=== PATIENT | male | born 1955 | race Caucasian/White ===

== ENCOUNTER → 2016-12-16 | Outpatient (CLI) | payer BC ==
--- NOTE | 2016-12-16 09:38 | US ---
EXAMINATION TYPE: US kidneys/renal and bladder DATE OF EXAM: 12/16/2016 8:54 AM COMPARISON: in pacs renal ultrasound January 04, 2015. CLINICAL HISTORY: N19 Kidney Failure. EXAM MEASUREMENTS: Right Kidney: 11.7 x 7.3 x 6.4 cm Left Kidney: 12.5 x 6.6 x 6.4 cm Post Void Residual Volume: 883.6 mL TECHNOLOGIST IMPRESSION: Technically difficult and limited study due to patient's large body habitus Right Kidney: hydronephrosis Left Kidney: hydronephrosis Bladder: 6.6cm enlarged prostate appears to be indenting posterior wall Bilateral Jets seen: not seen Normal Post Void Residual: no There is moderate pelvic fullness without calyceal dilatation on the right and severe fullness with d ilatation on the left. No masses are identified. The urinary bladder is anechoic. Bilateral ureter al jets are not seen. After voiding significant amount of residual urine is present. Suspect enlarged prostate causing outlet obstruction as prostate is prominent along inferior margin of bladder. IMPRESSION: Suboptimal study with new moderate to severe left greater than right hydronephrosis. Urology follow-u p advised. Abnormal post void residual is noted presumed on basis of enlarged prostate gland. A [place] message has been communicated to Raimundo Smith MD via the [employer] Critical Result system on 12/16/2016 9:36 AM, Message ID [id number].
== END | disposition home or self-care (01) ==
LOC: RADUSWWP 07:22
PROVIDERS: ATTEND Family Medicine
DX: N13.30 Unspecified hydronephrosis (principal); N19 Unspecified kidney failure
CPT/HCPCS: 76770

== ENCOUNTER 2021-02-05 13:05 | Emergency (ER) | payer MEDICARE, OTHER ==
--- NOTE | 2021-02-05 14:06 | ED ---
General Adult HPI - General Stated complaint: BAM Time Seen by Provider: 02/05/21 14:00 Source: patient, RN notes reviewed Mode of arrival: ambulatory Limitations: no limitations - History of Present Illness Initial comments: 65-year-old male presents emergency Department with chief complaint of COVID. Patient states that he tested positive at [facility]. Patient states symptoms started 1 week ago. Patient states he's had no fever states that cough congestion shortness of breath, minimal GI symptoms. Patient was sent for monoclonal antibodies. - Related Data Allergies Allergy/AdvReac Type Severity Reaction Status Date / Time atorvastatin [From Lipitor] Allergy Rash/Hives Verified 02/05/21 14:14 Review of Systems ROS Statement: Those systems with pertinent positive or pertinent negative responses have been documented in the HPI. ROS Other: All systems not noted in ROS Statement are negative. General Exam General appearance: alert, in no apparent distress Head exam: Present: atraumatic, normocephalic, normal inspection Eye exam: Present: normal appearance, PERRL, EOMI. Absent: scleral icterus, conjunctival injection, periorbital swelling ENT exam: Present: normal exam, normal oropharynx, mucous membranes moist, TM's normal bilaterally Neck exam: Present: normal inspection. Absent: tenderness, meningismus, lymphadenopathy Respiratory exam: Present: normal lung sounds bilaterally. Absent: respiratory distress, wheezes, rales, rhonchi, stridor Course Vital Signs 02/05/21 14:10 Temperature 97.5 F L Pulse Rate 75 Respiratory 20 Rate Blood Pressure 164/90 O2 Sat by Pulse 96 Oximetry Medical Decision Making - Medical Decision Making Patient has positive for covid. Patient will receive monoclonal antibodies. - Lab Data Lab Results 02/05/21 Range/Units 14:10 Coronavirus (PCR) Detected A (Not Detectd) Disposition Clinical Impression: COVID-19 Disposition: HOME SELF-CARE Condition: Stable Instructions (If sedation given, give patient instructions): Coronavirus Disease 2019 (COVID-19) Additional Instructions: Please return to the Emergency Department if symptoms worsen or any other concerns. Is patient prescribed a controlled substance at d/c from ED?: No Referrals: Raimundo Smith MD [Primary Care Provider] - 1-2 days Time of Disposition: 15:16
[2021-02-05 14:14] VITALS: TEMP 97.5
[2021-02-05] MEDS ORDERED: SODIUM CHLORIDE 0.9% 50 ML IVPB ONE (15:45)
[2021-02-05] MEDS ORDERED: BAMLANIVIMAB (EUA) 700 MG, ETESEVIMAB (EUA) 1,400 MG in SODIUM CHLORIDE 0.9% 50 ML IVPB ONE (15:45)
[2021-02-05 15:50] VITALS: RESP 18
[2021-02-05 17:56] VITALS: BP 178/91; PULSE 85
== END 2021-02-05 17:40 | disposition home or self-care (01) ==
LOC: EC 13:05
DX: U07.1 COVID-19 (principal); Z88.8 Allergy status to other drugs, medicaments and biological substances
CPT/HCPCS: 87635; 99283; 96365; 96361; Q0245

== ENCOUNTER → 2021-12-22 | Outpatient (CLI) | payer MEDICARE ==
--- NOTE | 2021-12-22 17:28 | XR ---
EXAMINATION TYPE: XR chest 2V DATE OF EXAM: 12/22/2021 COMPARISON: Chest x-ray 01/10/2013 HISTORY: Chronic cough TECHNIQUE: Frontal and lateral views of the chest are obtained. FINDINGS: There is blunting the costophrenic angles. Cardiac mediastinal silhouette shows a similar appearance. No evident pneumothorax. Bones are unchanged. Prominent lung volumes with flattening the hemidiaphragms suggests underlying COPD. I question some perihilar vascular indistinctness. IMPRESSION: There is been interval development of pleural effusions, there may be associated atelect asis versus edema or pneumonia. Correlate to exclude interstitial edema, pulmonary venous hypertensio n in a patient with pre-existing COPD.
== END | disposition home or self-care (01) ==
LOC: RADXRMAIN 13:46
PROVIDERS: ATTEND Nurse Practitioner Family
DX: R05.3 Chronic cough (principal)
CPT/HCPCS: 71046

== ENCOUNTER → 2021-12-23 | Outpatient (CLI) | payer MEDICARE | END | disposition home or self-care (01) | LOC: LABWHC1 16:04 | PROVIDERS: ATTEND Nurse Practitioner Family | DX: R06.09 Other forms of dyspnea (principal) | CPT/HCPCS: 36415; 93005 ==

== ENCOUNTER → 2022-02-04 | Outpatient (CLI) | payer MEDICARE ==
--- NOTE | 2022-02-04 11:56 | ECHOF ---
Referral Reason:R06.09 MEASUREMENTS -------- HEIGHT: 167.6 cm WEIGHT: 122.5 kg BP: RVIDd: 4.2 cm (< 3.3) IVSd: 1.0 cm (0.6 - 1.1) LVIDd: 5.0 cm (3.9 - 5.3) LVPWd: 1.2 cm (0.6 - 1.1) IVSs: 1.2 cm LVIDs: 3.7 cm LVPWs: 1.7 cm LAESV Index (A-L): 25.34 ml/m Ao Diam: 3.1 cm (2.0 - 3.7) AV Cusp: 1.8 cm (1.5 - 2.6) LA Diam: 3.3 cm (2.7 - 3.8) MV EXCURSION: 5.477 mm (> 18.000) MV EF SLOPE: 48 mm/s (70 - 150) EPSS: 1.0 cm MV E Kodi: 0.76 m/s MV DecT: 180 ms MV A [place]: 0.71 m/s MV E/A Ratio: 1.08 RAP: 5.00 mmHg RVSP: 15.46 mmHg FINDINGS -------- This was a technically difficult study with suboptimal views. The left ventricular size is normal. Left ventricular wall thickness is normal. There is severe g lobal hypokinesis of LV . Overall left ventricular systolic function is severely impaired with, an EF between 20 - 25 %. The right ventricle is moderate to severely enlarged. , and the LA measures 3.3cm. Normal LA size by volume 22+/-6 ml/m2. The right atrial size is normal. 5.0mg of Lumason was utilized for enhancement of images The aortic valve was not well visualized. The mitral valve is normal. Mild mitral regurgitation is present. The tricuspid valve appears structurally normal. Trace tricuspid regurgitation present. Right yomaira tricular systolic pressure is normal at < 35 mmHg. There is no pulmonic regurgitation present. The aortic root size is normal. IVC Not well visulized. There is no pericardial effusion. CONCLUSIONS -------- 1. The left ventricular size is normal. 2. Left ventricular wall thickness is normal. 3. There is severe global hypokinesis of LV . 4. Overall left ventricular systolic function is severely impaired with, an EF between 20 - 25 %. 5. The right ventricle is moderate to severely enlarged. 6. Mild mitral regurgitation is present. 7. Trace tricuspid regurgitation present. 8. There is no pericardial effusion. APPRENTICE PHOTOGRAPHER: Dorina Velásquez RDCS
--- NOTE | 2022-02-04 12:02 | P.STRESS ---
- Stress Test Note Stress Test Results/Findings: Exam Performed: stress test Exam Date: 02/04/22 Reason for Exam: THOM Height: 5 ft 6 in Weight: 122.47 kg Protocol: MELVIN Stage: 1 Duration of Exercise: 2:40 Resting Heart Rate: 94 Resting Blood Pressure: 144/78 Maximum Achieved Heart Rate: 106 Maximum Achieved Blood Pressure: 177/94 85% PMHR: 130 100% PMHR: 153 METS: 4.7 Technologist Comment: Stress Test Results/Findings: Patient underwent exercise stress EKG with a Melvin protocol treadmill stress test. Patient exercised into Stage 1 for a total of 2 minutes and 40 seconds reaching a total of 4.7 METS. Patient's maximum heart rate was 106 which represented 69% age-predicted maximum heart rate. Patient terminated test secondary to difficulty in breathing and unable to reach target heart rate. Stress EKG findings: At baseline patient's EKG showed normal sinus rhythm, normal axis, Q waves in the anterior septal leads, no significant ST or T wave abnormalities. At peak exercise, EKG showed no significant change from baseline. Conclusions: 1. Nondiagnostic stress EKG secondary to inability to reach target heart rate. Consider other stress modality if clinically indicated. 2. Abnormal EKG with Q waves in the anterior lateral leads. 3. Poor exercise capacity.
== END | disposition home or self-care (01) ==
LOC: RADNMMAIN 08:33
PROVIDERS: ATTEND Family Medicine
DX: R94.31 Abnormal electrocardiogram [ECG] [EKG] (principal); R06.09 Other forms of dyspnea
CPT/HCPCS: 93017; C8929; Q9950; 93306

== ENCOUNTER 2022-05-20 17:32 | Emergency (ER) | payer MEDICARE ==
[2022-05-20 17:46] VITALS: TEMP 98
[2022-05-20 18:52] LABS: Glucose,Whole Blood 178 mg/dL (70-110)
[2022-05-20 19:29] LABS: Albumin 3.8 g/dL (3.5-5.0); Calcium 9.4 mg/dL (8.4-10.2); Potassium 4.5 mmol/L (3.5-5.1); Total Bilirubin 1.4 mg/dL (0.2-1.3); Total Protein 6.7 g/dL (6.3-8.2)
--- NOTE | 2022-05-20 19:32 | XR ---
EXAMINATION TYPE: XR chest 2V DATE OF EXAM: 05/20/2022 7:28 PM COMPARISON: Chest radiographs from 01/29/2022 TECHNIQUE: XR chest 2V Frontal and lateral views of the chest. CLINICAL INDICATION:Male, 67 years old with history of altered mental status; FINDINGS: Lungs/Pleura: There is no evidence of pleural effusion, focal consolidation, or pneumothorax. Pulmonary vascularity: Unremarkable. Heart/mediastinum: Cardiomediastinal silhouette is unremarkable. Musculoskeletal: No acute osseous pathology. IMPRESSION: No acute cardiopulmonary disease/process.
[2022-05-20 19:33] LABS: Basophils # (A) 0.1 k/uL (0-0.2); Basophils % (A) 1 %; Eosinophils # (A) 0.5 k/uL (0-0.7); Eosinophils % (A) 4 %; HCT 46.4 % (39.0-53.0); HGB 15.8 gm/dL (13.0-17.5); Lymphocytes % (A) 18 %; MCH 31.7 pg (25.0-35.0); MCV 93.3 fL (80.0-100.0); Mean Platelet Volume 7.9; Monocytes # (A) 0.8 k/uL (0-1.0); Monocytes % (A) 7 %; Neutrophils # (A) 7.7 k/uL (1.3-7.7); Neutrophils % (A) 69 %; Platelet Count 220 k/uL (150-450); RBC 4.98 m/uL (4.30-5.90); RDW 13.3 % (11.5-15.5); WBC 11.1 k/uL (3.8-10.6)
--- NOTE | 2022-05-20 19:34 | CT ---
EXAMINATION TYPE: CT brain wo con for TPA CT DLP: 1192.6 mGycm, Automated exposure control for dose reduction was used. DATE OF EXAM: 05/20/2022 7:27 PM COMPARISON: None. CLINICAL INDICATION:Male, 67 years old with history of Neuro deficit, acute, stroke suspected, Neuro deficits, weakness TECHNIQUE: Brain: Axial CT images of the brain were obtained with coronal and sagittal reformats created and rev iewed. Contrast used: None. Oral contrast used: None. FINDINGS: Brain: Extra-axial spaces: No abnormal extra-axial fluid collections. Ventricular system: Within normal limits Cerebral parenchyma: No acute intraparenchymal hemorrhage or mass effect. The ramirez-white junction is well differentiated. Cerebellum: Unremarkable. Mass effect: No evidence of midline shift. Intracranial vasculature: Atherosclerotic calcifications of the intracranial vessels. Soft tissues: Normal. Calvarium/osseous structures: No depressed skull fracture. Paranasal sinuses and mastoid air cells: Mild scattered paranasal sinus disease. Visualized orbits: Bilateral aphakia IMPRESSION: No acute intracranial process.
--- NOTE | 2022-05-20 19:57 | CT ---
EXAMINATION TYPE: CT angio head neck CT DLP: 834.1 mGycm, Automated exposure control for dose reduction was used. DATE OF EXAM: 05/20/2022 7:39 PM COMPARISON: CT brain same day. CLINICAL INDICATION:Male, 67 years old with history of Neuro deficit, acute, stroke suspected;, Neuro deficits, weakness TECHNIQUE: Axially acquired helical CT angiogram of the head and neck was obtained with contrast. Axi al images are supplemented with 3D reconstructions [facility] NASCET criteria used. Contrast used:65 mL of Isovue 370 with IV Contrast, Oral contrast used: None. FINDINGS: CTA HEAD: No evidence of acute intracranial hemorrhage, mass effect, or midline shift. The ventricles, sulci, a nd cisterns are unremarkable. The visualized portions of the internal carotid arteries, middle cerebral arteries, anterior cerebral arteries, and posterior cerebral arteries are patent. The basilar and vertebral arteries are patent. CTA NECK: Right Carotid System: The common carotid artery and external carotid artery are patent. The carotid bifurcation demonstrate s no evidence of hemodynamically significant stenosis. The remaining portions of the internal carotid artery demonstrate normal size without significant narrowing. Left Carotid System: The common carotid artery and external carotid artery are patent. The carotid bifurcation demonstrate s no evidence of hemodynamically significant stenosis. The remaining portions of the internal carotid artery demonstrate normal size without significant narrowing. Vertebral arteries are patent without evidence hemodynamically significant stenosis. There is a three-vessel aortic arch. The origins of the great vessels are patent. No evidence of hemo dynamically significant stenosis. Left thyroid peripherally calcified nodule. Scattered soft tissue densities seen within the mediastin um measuring less than a centimeter. IMPRESSION: 1. No finding to correlate with patient's abnormal right ocular exam. 2. No evidence of dissection of the cervical internal carotid arteries or vertebral arteries or any e vidence of significant stenosis at the carotid bifurcations. 3. No evidence of high-grade stenosis or intracranial aneurysm. 4. Scattered less than 1 cm soft tissue densities seen within the upper mediastinum. These are nonspe cific attention on short-term follow-up imaging. Comparisons with priors at outside institution would be of benefit for stability.
[2022-05-20] MEDS ORDERED: SODIUM CHLORIDE 0.9% 1,000 ML IV STA (20:00)
[2022-05-20] MEDS ORDERED: PHENYLEPHRINE 2.5% OPHTH DRP 2ML RIGHT EYE STA (20:12)
[2022-05-20] MEDS ORDERED: TROPICAMIDE 1% OPHTH DROPS 2 ML BTL RIGHT EYE STA (20:12)
--- NOTE | 2022-05-20 21:27 | ED ---
General Adult HPI - General Chief complaint: Weakness Stated complaint: R53.1 Weakness Time Seen by Provider: 05/20/22 17:57 Source: patient, RN notes reviewed, old records reviewed Mode of arrival: EMS Limitations: no limitations - History of Present Illness Initial comments: Patient is a 67-year-old male with past medical history remarkable for prior right eye cataract surgery, diabetes, hypertension who presents emergency Department complaining of sudden onset generalized weakness with associated right eye visual changes. States he was working outside today. He was lying down for a nap when he suddenly experienced weakness, as well as sweats. States he felt nauseous but expressed no episodes of emesis. Nose there is having increased difficulty with vision in his right lateral eye lan from his right eye alone. Presents emergency department for further evaluation of this time. Denies any sensory deficits. Denies any history of strokes or TIAs. Had his surgery 2 or 3 years ago on a cataract and hasn't followed up with his ophtha lmologist in multiple years. There are no changes to his eyes for as he can tell. Denies fevers, chills, sick contacts. No other acute complaints at this time. Presents for further evaluation. - Related Data Home Medications Medication Instructions Recorded Confirmed Albuterol Inhaler [Ventolin Hfa 2 puff INHALATION RT-Q6H PRN 05/20/22 05/20/22 Inhaler] Dulaglutide [Trulicity] 1.5 mg SQ TU 05/20/22 05/20/22 Furosemide [Lasix] 40 mg PO DAILY 05/20/22 05/20/22 Rosuvastatin [Crestor] 10 mg PO DAILY 05/20/22 05/20/22 Sacubitril/Valsartan [Entresto 24 1 tab PO BID 05/20/22 05/20/22 mg-26 mg Tablet] Spironolactone [Aldactone] 25 mg PO DAILY 05/20/22 05/20/22 Tiotropium Reeds [Spiriva] 18 mcg INHALATION RT-DAILY 05/20/22 05/20/22 allopurinoL [Zyloprim] 100 mg PO DAILY 05/20/22 05/20/22 carvediloL [Coreg] 3.125 mg PO BID 05/20/22 05/20/22 metFORMIN HCL 1,000 mg PO BID 05/20/22 05/20/22 Allergies Allergy/AdvReac Type Severity Reaction Status Date / Time atorvastatin [From Lipitor] Allergy Rash/Hives Verified 05/20/22 20:50 Review of Systems ROS Statement: Those systems with pertinent positive or pertinent negative responses have been documented in the HPI. Review of Systems: CONST: Denies fever EYES: Endorses worsening vision of right eye ENT: Denies nasal congestion C/V: Denies Chest pain RESP: Denies shortness of breath GI: Denies abdominal pain : Denies dysuria SKIN: Denies rash. MSK: Denies joint pain. NEURO: Endorses generalized weakness ROS Other: All systems not noted in ROS Statement are negative. Past Medical History Past Medical History: Diabetes Mellitus, Hypertension, Prostate Disorder History of Any Multi-Drug Resistant Organisms: None Reported Past Surgical History: Heart Catheterization, Prostate Surgery Past Psychological History: No Psychological Hx Reported Smoking Status: Never smoker Past Alcohol Use History: None Reported Past Drug Use History: None Reported General Exam - General Exam Comments Initial Comments: General: Appears in no acute distress. HEAD: Normal with no signs of head trauma. EYES: Left pupil is 3 mm. Equal round and reactive to light. EOMI bilaterally. Right pupil appears abnormal, as it appears forced to the 10 o'clock position of the right iris with an atypical shape. Slitlike. Lens is visualized by the naked eye. No conjunctival injection. No discharge. Decreased peripheral vision in the right eye in the right upper and right lower quadrants. Right eye pressures are 15, left eye pressures are 18. No discharge. Left eye is otherwise within normal limits. Visual acuity is decreased in the right eye, normal in the left eye. ENT: Hearing grossly intact, normal oropharynx. RESPIRATORY: Clear breath sounds bilaterally. No wheezes, rales, or rhonchi. C/V: Regular rate and rhythm. S1 and S2 auscultated, no edema, peripheral pulses 2+ and intact throughout ABD: Abd is soft, nontender, nondistended EXT: Normal range of motion, no obvious deformity SKIN: No rashes or lesions observed on exposed skin. NEURO: Alert and oriented 4. GCS is 15. Stroke scale is isolated to right eye complaints, as there is some difficulty with finger to nose testing but it is extinguished when he removed right eye visual lan. No other local neurologic al deficits. Limitations: no limitations Course Vital Signs 05/20/22 05/20/22 17:41 20:31 Temperature 98 F Pulse Rate 67 68 Respiratory 17 16 Rate Blood Pressure 193/88 159/93 O2 Sat by Pulse 96 99 Oximetry Medical Decision Making - Medical Decision Making Based on the patient's presentation and physical exam, I'm concerned for acute right eye process causing his current visual loss but cannot rule out the possibility of a stroke. I have low suspicion at this time his NIH is basically 0. I have stronger suspicion for acute intraocular process. We will obtain a stroke work up, however stroke pager will not be activated. Blood glucose is within normal limits. Vital signs are within normal limits. I discussed at length with the patient and his whether or not his pupil findings are new or not. They're uncertain. As far as the patient knows, his pupil is normally the same as the left pupil. He thinks this may be new but is uncertain.Bedside ultrasound was completed by myself to evaluate for retinal detachment. No obv ious signs of retinal detachment were seen by myself. I did speak with ophthalmology, Dr. Baez who was in agreement with the above plan. He will come evaluate the patient had CT imaging is negative. Concern for possible intra-ocular issue as well, particularly with the patient's history of eye surgery. EKG shows no signs of acute ischemia. Laboratory studies are relatively unremarkable except for slight AK I with an elevated BUN of 37 and creatinine of 1.54. Patient was administered IV fluids. Troponin is indeterminate. Chest x- ray shows no acute cardiopulmonary process. CT brain shows no acute intracranial process. CT angiogram shows no acute intracranial process to extend the patient's right eye issues. I did speak with radiology directly regarding CT imaging and CT results from nonverbally. I discussed the findings with the patient. We will have ophthalmology come evaluate him. I did dilate the patient's right eye prior to ophthalmology arrival. On reevaluation at this time, patient's exam is unchanged. He is overall feeling better. Weakness is resolved. Dr. Baez presented bedside and completely deny exam. He believes that the patient has a macular hole, likely related to prior surgery. Please see his consult note. He states that this is likely what is causing the patient's acute symptoms. The abnormal pupil may or may not be old. Either way, patient is stable for discharge home with close follow-up with the patient's revit drafter, Dr. Herrmann. Patient was in agreement with this plan. I instructed the patient to follow up with their PCP in the next 1-3 days. I explained that the patient should return to the emergency department if they experience any worsening symptoms. Strict return precautions were discussed with the patient. The patient expressed understanding of these instructions. I answered all questions that the patient had. The patient was discharged home in fair condition with their prescriptions and follow up information. - Lab Data Result diagrams: 05/20/22 19:13 05/20/22 19:13 Lab Results 05/20/22 05/20/22 05/20/22 Range/Units 18:48 19:13 19:13 WBC 11.1 H (3.8-10.6) k/uL RBC 4.98 (4.30-5.90) m/uL Hgb 15.8 (13.0-17.5) gm/dL Hct 46.4 (39.0-53.0) % MCV 93.3 (80.0-100.0) fL MCH 31.7 (25.0-35.0) pg MCHC 34.0 (31.0-37.0) g/dL RDW 13.3 (11.5-15.5) % Plt Count 220 (150-450) k/uL MPV 7.9 Neutrophils % 69 % Lymphocytes % 18 % Monocytes % 7 % Eosinophils % 4 % Basophils % 1 % Neutrophils # 7.7 (1.3-7.7) k/uL Lymphocytes # 2.0 (1.0-4.8) k/uL Monocytes # 0.8 (0-1.0) k/uL Eosinophils # 0.5 (0-0.7) k/uL Basophils # 0.1 (0-0.2) k/uL Sodium 136 L (137-145) mmol/L Potassium 4.5 (3.5-5.1) mmol/L Chloride 103 (98-107) mmol/L Carbon Dioxide 23 (22-30) mmol/L Anion Gap 10 mmol/L BUN 37 H (9-20) mg/dL Creatinine 1.54 H (0.66-1.25) mg/dL Est GFR (CKD-EPI)AfAm 53 (>60 ml/min/1.73 sqM) Est GFR (CKD-EPI)NonAf 46 (>60 ml/min/1.73 sqM) Glucose 171 H (74-99) mg/dL POC Glucose (mg/dL) 178 H (70-110) mg/dL POC Glu Postal Transportation Clerk ID Camille Hutson Calcium 9.4 (8.4-10.2) mg/dL Total Bilirubin 1.4 H (0.2-1.3) mg/dL AST 22 (17-59) U/L ALT 15 (4-49) U/L Alkaline Phosphatase 86 (38-126) U/L Troponin I (0.000-0.034) ng/mL Total Protein 6.7 (6.3-8.2) g/dL Albumin 3.8 (3.5-5.0) g/dL 05/20/22 Range/Units 19:13 WBC (3.8-10.6) k/uL RBC (4.30-5.90) m/uL Hgb (13.0-17.5) gm/dL Hct (39.0-53.0) % MCV (80.0-100.0) fL MCH (25.0-35.0) pg MCHC (31.0-37.0) g/dL RDW (11.5-15.5) % Plt Count (150-450) k/uL MPV Neutrophils % % Lymphocytes % % Monocytes % % Eosinophils % % Basophils % % Neutrophils # (1.3-7.7) k/uL Lymphocytes # (1.0-4.8) k/uL Monocytes # (0-1.0) k/uL Eosinophils # (0-0.7) k/uL Basophils # (0-0.2) k/uL Sodium (137-145) mmol/L Potassium (3.5-5.1) mmol/L Chloride (98-107) mmol/L Carbon Dioxide (22-30) mmol/L Anion Gap mmol/L BUN (9-20) mg/dL Creatinine (0.66-1.25) mg/dL Est GFR (CKD-EPI)AfAm (>60 ml/min/1.73 sqM) Est GFR (CKD-EPI)NonAf (>60 ml/min/1.73 sqM) Glucose (74-99) mg/dL POC Glucose (mg/dL) (70-110) mg/dL POC Glu Postal Transportation Clerk ID Calcium (8.4-10.2) mg/dL Total Bilirubin (0.2-1.3) mg/dL AST (17-59) U/L ALT (4-49) U/L Alkaline Phosphatase (38-126) U/L Troponin I 0.028 (0.000-0.034) ng/mL Total Protein (6.3-8.2) g/dL Albumin (3.5-5.0) g/dL - EKG Data -: EKG Interpreted by Me EKG Comments: 12-lead Electrocardiogram Interpretation Note EKG was reviewed and interpreted by myself. 12-lead ECG performed at 1750 is interpreted by me as revealing normal sinus rhythm at a rate of 65 beats per minute. [place] is normal. VA interval is 181 ms, QRS duration is 92 ms, QTc is 433 ms. There were no ST or T wave abnormalities to suggest myocardial ischemia or injury. R wave progression across the precordium was satisfactory. By my interpretation this EKG is non-diagnostic for acute ischemia. Critical Care Time Critical Care Time: Yes Total Critical Care Time: 35 Critical Care Time: Upon my evaluation, this patient had a high probability of imminent or life- threatening deterioration due to monocular vision loss, macular hole, which required my direct attention, intervention, and personal management. I have personally provided 35 minutes of critical care time exclusive of time spent on separately billable procedures. Time includes review of laboratory data, radiology results, discussion with consultants, and monitoring for potential decompensation. Interventions were performed as documented in my note. Disposition Clinical Impression: Macular hole, right eye Disposition: HOME SELF-CARE Condition: Good Additional Instructions: Follow up with Dr. Herrmann within the next 7 days for further right eye evaluation. Diagnosed with a macular hole. Is patient prescribed a controlled substance at d/c from ED?: No Referrals: Raimundo Smith MD [Primary Care Provider] - 1-2 days Zaid Herrmann MD [STAFF PHYSICIAN] - 1-2 days Time of Disposition: 21:15
[2022-05-20 21:37] VITALS: BP 159/93; PULSE 68; RESP 16
--- NOTE | 2022-05-20 23:32 | P.CON ---
Consult Note - . Consult date: 05/20/22 Assessment/Plan:: This is a 67 y/o male who underwent cataract surgery for each eye a few years ago. Today he presetns to the ER with new vision symptoms associated with general malaise after working today in the heat and humidity. He stated that he had laid down for a nap and experienced sweats and weakness along with a change in vision in the right eye. He states he has a long standing history of amblyopia of the right eye, and is not as aware of the field of view with the eye with the reduced vision. Previous cataract surgery of each eye was performed several years ago, and the left was unremarkable, however there was difficulty on the right. His last examination was apparently for the postoperative course. He denies any annnual examinations for the last 3 years. PE: Slit lamp exam, (OD dilated with tropicamide & neosynephrine) Ext: unremarkable OU Conj: white/quiet Cornea: Clear OU AC: D&Q OU; AC IOL in good position OD Iris: unremarkable OS, OD moderate postoperative correctopia and lateral pupillary opening Lens: OD AC IOL, OS PC IOL Vitreous: clear OU Optic nerve s/f/p C:D 0.10 OU Macula: OD with irregular foveola with small central intraretinal heme, possible ERM; OS normal FLR and quiet Vascular: normal 0.67 Peripheral: unremarkable OD, with detachment or defect A: 1) Correctopia OD, related to previous intraocular lens implant surgery, not likely new 2) AC IOL OD consistent with history of previous difficulty with cataract surgery 3) Epiretinal membrane OD with macular hole indeterminate age 4) amblyopia OD limited ability to necessarily determine when there may have been a vision change P: Recommend complete eye examination with Dr. Zaid Herrmann to determine course of action to correct vision deficit.
== END 2022-05-20 21:48 | disposition home or self-care (01) ==
LOC: EC 17:32
DX: H35.341 Macular cyst, hole, or pseudohole, right eye (principal); E11.9 Type 2 diabetes mellitus without complications; I10 Essential (primary) hypertension; Z88.8 Allergy status to other drugs, medicaments and biological substances
CPT/HCPCS: 36415; 93005; 80053; 84484; 85025; 71046; 70496; 70450; 70498; 99285; 96360; 96361; Q9967

== ENCOUNTER 2022-05-22 18:51 | Inpatient (IN) | payer MEDICARE ==
[2022-05-22] MEDS ORDERED: ASPIRIN 325 MG TAB PO STA (19:09)
--- NOTE | 2022-05-22 19:11 | ED ---
Neuro HPI - General Chief Complaint: Neuro Symptoms/Deficit Stated Complaint: neuro issue Time Seen by Provider: 05/22/22 19:08 Source: patient Mode of arrival: wheelchair Limitations: no limitations - History of Present Illness Is the patient presenting with stroke symptoms?: No Initial Comments: This is a pleasant 67-year-old male who presents to the emergency department complaining of visual disturbance involving both eyes, inability to use correctly, and inability to recognize common objects. Patient states that the symptom seemed to start on Wednesday after having a diaphoretic episode at about 3 PM, this was May 20. Patient was subsequently seen here and had a neurological workup. Patient was also seen by ophthalmology. Patient's computed tomography scan showed no acute findings. Patient subsequently followed up with his regular physician and was sent here today for an echocardiogram and MRI. This shows acute ischemic changes involving left temporal area and thalamus. Patient was started on Eliquis due to hypokinesia on echocardiogram with probable thrombus formation. Patient took a baby aspirin prior to arrival. Patient current complaints are right visual field loss, plus the above co mplaints which continue. He has no chest pain or shortness of breath. No focal weakness. No headache, no fever or chills, no changes hearing, no sore throat or difficulty with speech, no neck pain, no chest pain or shortness of breath, no abdominal pain, no nausea or vomiting, no changes in urination or bowel movements, no numbness or tingling, no extremity pain, no skin rashes or lesions. Past medical, surgical, social, and family history reviewed. Last Observed Normal: 15:00 (05/20/2022) - Related Data Home Medications: Home Medications Medication Instructions Recorded Confirmed Albuterol Inhaler [Ventolin Hfa 2 puff INHALATION RT-Q6H PRN 05/20/22 05/20/22 Inhaler] Dulaglutide [Trulicity] 1.5 mg SQ TU 05/20/22 05/20/22 Furosemide [Lasix] 40 mg PO DAILY 05/20/22 05/20/22 Rosuvastatin [Crestor] 10 mg PO DAILY 05/20/22 05/20/22 Sacubitril/Valsartan [Entresto 24 1 tab PO BID 05/20/22 05/20/22 mg-26 mg Tablet] Spironolactone [Aldactone] 25 mg PO DAILY 05/20/22 05/20/22 Tiotropium Hyrum [Spiriva] 18 mcg INHALATION RT-DAILY 05/20/22 05/20/22 allopurinoL [Zyloprim] 100 mg PO DAILY 05/20/22 05/20/22 carvediloL [Coreg] 3.125 mg PO BID 05/20/22 05/20/22 metFORMIN HCL 1,000 mg PO BID 05/20/22 05/20/22 Allergies/Adverse Reactions: Allergies Allergy/AdvReac Type Severity Reaction Status Date / Time atorvastatin [From Lipitor] Allergy Rash/Hives Verified 05/22/22 19:03 Review of Systems ROS Statement: Those systems with pertinent positive or pertinent negative responses have been documented in the HPI. ROS Other: All systems not noted in ROS Statement are negative. General Exam - General Exam Comments Initial Comments: Vital signs reviewed, blood pressure 151/101. Patient in no significant distress otherwise. Limitations: no limitations General appearance: alert, in no apparent distress Head exam: Present: atraumatic, normocephalic, normal inspection Eye exam: Present: normal appearance, PERRL, EOMI. Absent: scleral icterus, conjunctival injection, periorbital swelling ENT exam: Present: normal exam, normal oropharynx, mucous membranes dry, mucous membranes moist, normal external ear exam Neck exam: Present: normal inspection, full ROM. Absent: tenderness, meningismus, lymphadenopathy Respiratory exam: Present: normal lung sounds bilaterally. Absent: respiratory distress, wheezes, rales, rhonchi, stridor Cardiovascular Exam: Present: regular rate, normal rhythm, normal heart sounds. Absent: systolic murmur, diastolic murmur, rubs, gallop, clicks GI/Abdominal exam: Present: soft, normal bowel sounds. Absent: distended, tenderness, guarding, rebound, rigid Extremities exam: Present: normal inspection, full ROM, normal capillary refill. Absent: tenderness, pedal edema, joint swelling, calf tenderness Back exam: Present: normal inspection Neurological exam: Present: alert, oriented X3. Absent: motor sensory deficit Expanded Neurological exam: Present: other (Right-sided homonymous hemianopsia) Patient oriented to: Present: person, place, time Speech: Present: fluid speech, anomia (Inabilities correctly or recognize common objects). Absent: receptive aphasia, expressive aphasia Cranial nerves: EOM's Intact: Normal, Gag Reflex: Normal, Tongue Deviation: Normal, Nystagmus: Normal, Facial Sensation: Normal, Facial Palsy with Forehead Movement: Normal, Facial Palsy without Forehead Movement: Normal Cerebellar function: Finger to Nose: Normal, Heel to Jara: Normal Upper motor neuron: Pronator Drift: Abnormal Right Sensory exam: Upper Extremity Light Touch: Normal, Upper Extremity Pin Prick: Normal, Lower Extremity Light Touch: Normal, Lower Extremity Pin Prick: Normal Motor strength exam: RUE: 5, LUE: 5, RLE: 5, LLE: 5 Eye Response: (4) open spontaneously Motor Response: (6) obeys commands Verbal Response: (5) oriented Robin Total: 15 Psychiatric exam: Present: normal affect, normal mood Skin exam: Present: warm, dry, intact, normal color. Absent: rash Stroke MDM - Lab Data Result diagrams: 05/22/22 19:34 05/22/22 19:34 Lab Results 05/22/22 05/22/22 05/22/22 Range/Units 19:34 19:34 19:34 WBC 10.7 H (3.8-10.6) k/uL RBC 5.09 (4.30-5.90) m/uL Hgb 15.8 (13.0-17.5) gm/dL Hct 46.9 (39.0-53.0) % MCV 92.0 (80.0-100.0) fL MCH 31.0 (25.0-35.0) pg MCHC 33.7 (31.0-37.0) g/dL RDW 13.3 (11.5-15.5) % Plt Count 231 (150-450) k/uL MPV 6.7 Neutrophils % 74 % Lymphocytes % 17 % Monocytes % 6 % Eosinophils % 2 % Basophils % 0 % Neutrophils # 7.9 H (1.3-7.7) k/uL Lymphocytes # 1.8 (1.0-4.8) k/uL Monocytes # 0.6 (0-1.0) k/uL Eosinophils # 0.3 (0-0.7) k/uL Basophils # 0.0 (0-0.2) k/uL PT 11.1 (9.0-12.0) sec INR 1.0 (<1.2) APTT 22.9 (22.0-30.0) sec Sodium 136 L (137-145) mmol/L Potassium 3.9 (3.5-5.1) mmol/L Chloride 102 (98-107) mmol/L Carbon Dioxide 25 (22-30) mmol/L Anion Gap 9 mmol/L BUN 27 H (9-20) mg/dL Creatinine 1.34 H (0.66-1.25) mg/dL Est GFR (CKD-EPI)AfAm 63 (>60 ml/min/1.73 sqM) Est GFR (CKD-EPI)NonAf 54 (>60 ml/min/1.73 sqM) Glucose 138 H (74-99) mg/dL Calcium 9.1 (8.4-10.2) mg/dL Total Bilirubin 2.3 H (0.2-1.3) mg/dL AST 23 (17-59) U/L ALT 16 (4-49) U/L Alkaline Phosphatase 61 (38-126) U/L Troponin I (0.000-0.034) ng/mL Total Protein 7.0 (6.3-8.2) g/dL Albumin 3.9 (3.5-5.0) g/dL 05/22/22 Range/Units 19:34 WBC (3.8-10.6) k/uL RBC (4.30-5.90) m/uL Hgb (13.0-17.5) gm/dL Hct (39.0-53.0) % MCV (80.0-100.0) fL MCH (25.0-35.0) pg MCHC (31.0-37.0) g/dL RDW (11.5-15.5) % Plt Count (150-450) k/uL MPV Neutrophils % % Lymphocytes % % Monocytes % % Eosinophils % % Basophils % % Neutrophils # (1.3-7.7) k/uL Lymphocytes # (1.0-4.8) k/uL Monocytes # (0-1.0) k/uL Eosinophils # (0-0.7) k/uL Basophils # (0-0.2) k/uL PT (9.0-12.0) sec INR (<1.2) APTT (22.0-30.0) sec Sodium (137-145) mmol/L Potassium (3.5-5.1) mmol/L Chloride (98-107) mmol/L Carbon Dioxide (22-30) mmol/L Anion Gap mmol/L BUN (9-20) mg/dL Creatinine (0.66-1.25) mg/dL Est GFR (CKD-EPI)AfAm (>60 ml/min/1.73 sqM) Est GFR (CKD-EPI)NonAf (>60 ml/min/1.73 sqM) Glucose (74-99) mg/dL Calcium (8.4-10.2) mg/dL Total Bilirubin (0.2-1.3) mg/dL AST (17-59) U/L ALT (4-49) U/L Alkaline Phosphatase (38-126) U/L Troponin I 0.037 H* (0.000-0.034) ng/mL Total Protein (6.3-8.2) g/dL Albumin (3.5-5.0) g/dL - NIH Stroke Scale 1a. Level of Consciousness: (0) alert 1b. LOC Questions: (0) answers correctly 1c. LOC Commands: (0) performs tasks correctly 2. Best Gaze: (0) normal 3. Visual: (2) complete hemianopia (Right-sided) 4. Facial Palsy: (0) normal symmetrical movement 5a. Motor Arm Left: (0) no drift 5b. Motor Arm Right: (0) no drift 6a. Motor Leg Left: (0) no drift 6b. Motor Leg Right: (0) no drift 7. Limb Ataxia: (0) absent 8. Sensory: (0) normal 9. Best Language: (0) no aphasia 10. Dysarthria: (0) normal 11. Extinction/Inattention: (0) no abnormality - Thrombolytic Inclusion/Exclusion Thrombolytic Exclusion Criteria: Symptom Onset > 4.5 Hours (Actually started about 3 PM on 05/20/2022) Thrombolytic Inclusion Criteria: NIH Stroke Scale Deficit - Medical Decision Making MRI done at 11:35 AM shows acute ischemic changes within the medial left temporal lobe in the periventricular region adjacent to the lateral ventricle extending into the inferior left thalamus. Moderate, extensive, additional chronic-appearing periventricular white matter ischemic check changes. No mention of intracranial bleeding Echocardiogram shows ischemic cardiomyopathy with severe hypokinesia involving the left anterior apical/septal portion with an ejection fraction 30%. Apical filling defects suggestive of a thrombus appears organized probably not acute. Patient was started on Eliquis today by his primary care physician. Patient will be admitted to the hospital for neurologic evaluation. Symptoms started over 48 hours ago. The case was discussed in detail with ED attending physician. Presentation, findings, treatment plan discussed in detail. Patient's laboratory investigations do reveal a positive troponin 0.037. Previous troponin on 05/20 was 0.028. We will run serial enzymes. Patient was given aspirin 325 mg here in the ER. Patient was started on Eliquis earlier today. Patient has cardiac thrombus noted on the echocardiogram with apical filling defect. 05/22/22 21:21 EKG done at 2037 and read by the ED attending physician reveals left axis deviation, poor R-wave progression, nonspecific ST and T-wave changes. No evidence of significant ST elevation. Essentially similar to the previous EKG from 05/20/2022. Normal QRS morphology. Normal intervals. Past Medical History Past Medical History: Diabetes Mellitus, Hypertension, Prostate Disorder History of Any Multi-Drug Resistant Organisms: None Reported Past Surgical History: Heart Catheterization, Prostate Surgery Past Psychological History: No Psychological Hx Reported Smoking Status: Never smoker Past Alcohol Use History: None Reported Past Drug Use History: None Reported Course Vital Signs 05/22/22 18:59 Pulse Rate 98 Respiratory 18 Rate Blood Pressure 151/101 O2 Sat by Pulse 98 Oximetry - Reevaluation(s) Reevaluation #1: 05/22/22 20:21 Medical record is reviewed Symptoms unchanged Patient is informed of results and questions answered Patient in no distress Disposition Clinical Impression: Cerebrovascular accident (CVA), Mural thrombus of cardiac apex, Elevated troponin, Uncontrolled hypertension Disposition: ADMITTED IP TO THIS HOSP Condition: Fair Time of Disposition: 19:22 Decision to Admit Reason: Admit from EC
[2022-05-22 19:51] LABS: Basophils % (A) 0 %; Eosinophils # (A) 0.3 k/uL (0-0.7); Eosinophils % (A) 2 %; HCT 46.9 % (39.0-53.0); HGB 15.8 gm/dL (13.0-17.5); Lymphocytes # (A) 1.8 k/uL (1.0-4.8); Lymphocytes % (A) 17 %; MCHC 33.7 g/dL (31.0-37.0); Mean Platelet Volume 6.7; Monocytes # (A) 0.6 k/uL (0-1.0); Monocytes % (A) 6 %; Neutrophils # (A) 7.9 k/uL (1.3-7.7); Neutrophils % (A) 74 %; Platelet Count 231 k/uL (150-450); RBC 5.09 m/uL (4.30-5.90); RDW 13.3 % (11.5-15.5); WBC 10.7 k/uL (3.8-10.6)
[2022-05-22 19:55] LABS: Partial Thromboplastin Time 22.9 sec (22.0-30.0); Prothrombin Time 11.1 sec (9.0-12.0)
[2022-05-22] MEDS: SODIUM CHLORIDE 0.9% 1,000 ML IV STA (19:57)
[2022-05-22 20:07] LABS: Albumin 3.9 g/dL (3.5-5.0); Calcium 9.1 mg/dL (8.4-10.2); Potassium 3.9 mmol/L (3.5-5.1); Total Bilirubin 2.3 mg/dL (0.2-1.3)
[2022-05-22] MEDS ORDERED: ACETAMINOPHEN TAB 325 MG TAB PO PRN (20:24)
[2022-05-22] MEDS ORDERED: ALBUTEROL NEBULIZED 2.5 MG/3 ML INHALATION PRN (20:27)
[2022-05-22] MEDS ORDERED: DEXTROSE 50% SYRINGE 50 ML IVP PRN ×2 (20:30)
--- NOTE | 2022-05-22 20:33 | XR ---
EXAMINATION TYPE: XR chest 1V portable DATE OF EXAM: 05/22/2022 7:50 PM COMPARISON: Chest radiographs from 05/20/2022 TECHNIQUE: XR chest 1V portable . CLINICAL INDICATION:Male, 67 years old with history of altered mental status; FINDINGS: Lungs/Pleura: Prominent interstitial lung markings are seen scattered throughout the lungs. No eviden ce of focal consolidation, pneumothorax or pleural effusion. Pulmonary vascularity: Unremarkable. Heart/mediastinum: Cardiomediastinal silhouette is unremarkable. Musculoskeletal: No acute osseous pathology. IMPRESSION: Chronic changes without acute pulmonary process. No significant change from prior.
[2022-05-22 20:50] LABS: Glucose,Whole Blood 139 mg/dL (70-110)
[2022-05-22] MEDS: INSULIN ASPART (NovoLOG) 100 UNIT/ML VIAL SQ SCH (21:07)
[2022-05-22] MEDS: SACUBITRIL/VALSARTAN 24 MG-26 MG TABLET PO SCH (21:18)
[2022-05-22] MEDS: carvediloL 3.125 MG TAB PO SCH (21:18)
[2022-05-23] MEDS: SODIUM CHLORIDE 0.9% 1,000 ML IV STA (05:05)
[2022-05-23 05:50] LABS: Glucose,Whole Blood 128 mg/dL (70-110)
[2022-05-23] MEDS: INSULIN ASPART (NovoLOG) 100 UNIT/ML VIAL SQ SCH ×4 (05:50→20:25)
[2022-05-23] MEDS: IPRATROPIUM 0.5 MG/2.5 ML NEBU INHALATION SCH ×4 (07:24→21:00)
[2022-05-23] MEDS: SPIRONOLACTONE 25 MG TAB PO SCH (08:36)
[2022-05-23] MEDS: FUROSEMIDE 40 MG TAB PO SCH (08:36)
[2022-05-23] MEDS: SACUBITRIL/VALSARTAN 24 MG-26 MG TABLET PO SCH ×2 (08:36→20:47)
[2022-05-23] MEDS: ASPIRIN 325 MG TAB PO SCH (08:37)
[2022-05-23] MEDS: APIXABAN 5 MG TAB PO SCH ×2 (08:37→20:23)
[2022-05-23] MEDS: NON FORMULARY DRUG (Rosuvastatin 10 MG Tablet) PO SCH (08:37)
[2022-05-23] MEDS: carvediloL 3.125 MG TAB PO SCH ×2 (08:37→20:23)
[2022-05-23 11:28] LABS: Chol/HDL Ratio 3.92 Ratio; LDL Cholesterol,Calculated 87.4 mg/dL (0.0-131.0)
[2022-05-23 11:46] LABS: Glucose,Whole Blood 144 mg/dL (70-110)
--- NOTE | 2022-05-23 14:37 | P.CRDCN ---
History of Present Illness History of present illness: HISTORY OF PRESENTING ILLNESS Patient is a pleasant 67-year-old male with history of diabetes, hypertension, patient is pleasant 67-year-old male with history of hypertension, obesity, cardiomyopathy EF 25-30%, hyperlipidemia who presents with symptoms that started on Wednesday of feeling somewhat sweaty, visual disturbances, some difficulty reading and difficulty coming up with words. Initially was evaluated in the ER and civilian jail officer saw patient with no significant changes. He then underwent outpatient workup with a brain MRI consistent with acute/subacute stroke as well as a transthoracic echo 05/22 showed EF 25-30% with apical hypokinesis and apical thrombus. Prior echo from January showed EF 20-25% however no thrombus noted at that time. He denies any heart failure type symptoms and no chest pain or pressure or shortness breath. Denies any lightheadedness or dizziness. He has not had a heart catheterization last 20 years and per patient only followed up with Dr. Segundo once. Unclear if his cardiomyopathy is ischemic or nonischemic. Given MRI and echo findings he was told to present to the emergency department and blood work showed creatinine 1.3, troponin 0.033, total cholesterol 149, LDL 87, VLDL 23 and HDL 38, hemoglobin A1c 8.0. EKG shows sinus rhythm, left axis deviation, Q waves 3 and aVF, V3 through V6. REVIEW OF SYSTEMS At the time of my exam: CONSTITUTIONAL: Denies fever or chills. CARDIOVASCULAR: Denies chest pain, shortness of breath, orthopnea, PND or palpitations. RESPIRATORY: Denies cough. GASTROINTESTINAL: Denies abdominal pain, diarrhea, constipation, nausea or vomiting. MUSCULOSKELETAL: Denies myalgias. NEUROLOGIC: Denies numbness, tingling, + visual disturbances, dysarthria. ENDOCRINE: Denies fatigue, weight change, polydipsia or polyurina. GENITOURINARY: Denies burning, hematuria or urgency with micturation. HEMATOLOGIC: Denies history of anemia or bleeding. PHYSICAL EXAMINATION Vital signs reviewed. CONSTITUTIONAL: No apparent distress. HEENT: Head is normocephalic. Pupils are equal, round. Sclerae anicteric. Mucous membranes of the mouth are moist. No JVD. No carotid bruit. CHEST EXAMINATION: Lungs are clear to auscultation. No chest wall tenderness is noted on palpation or with deep breathing. HEART EXAMINATION: Regular rate and rhythm. S1, S2 heard. No murmurs, gallops or rub. ABDOMEN: Soft, nontender. Positive bowel sounds. EXTREMITIES: 2+ peripheral pulses, no lower extremity edema and no calf tende rness. NEUROLOGIC EXAMINATION: Patient is awake, alert and oriented x3. ASSESSMENT 1. Acute/subacute stroke 2. Apical thrombus new compared to echo from 01/2022 3. Cardiomyopathy with EF 25-30%, unclear ischemic versus nonischemic 4. Chronic systolic heart failure 5. Mildly elevated troponins, no signs or symptoms consistent with acute coronary syndrome 6. Chronic kidney disease 7. Diabetes mellitus type 2 PLAN Patient with new stroke and new findings consistent with apical thrombus. R ecommend anticoagulation with Eliquis 5 mg twice a day. Troponins not indicative of acute coronary syndrome and no significant signs or symptoms consistent with acute coronary syndrome. Patient may need ischemic workup if this has not been done previously however would recommend waiting until neur ologic status stable. Optimize heart failure regimen as able. Further recommendations to follow. Past Medical History Past Medical History: Diabetes Mellitus, Hypertension, Prostate Disorder History of Any Multi-Drug Resistant Organisms: None Reported Past Surgical History: Heart Catheterization, Prostate Surgery Past Anesthesia/Blood Transfusion Reactions: No Reported Reaction Past Psychological History: No Psychological Hx Reported Smoking Status: Never smoker Past Alcohol Use History: None Reported Past Drug Use History: None Reported Medications and Allergies Home Medications Medication Instructions Recorded Confirmed Type Albuterol Inhaler [Ventolin Hfa 2 puff INHALATION RT-Q6H PRN 05/20/22 05/22/22 History Inhaler] Dulaglutide [Trulicity] 1.5 mg SQ TU 05/20/22 05/22/22 History Furosemide [Lasix] 40 mg PO DAILY 05/20/22 05/22/22 History Rosuvastatin [Crestor] 10 mg PO DAILY 05/20/22 05/22/22 History Sacubitril/Valsartan [Entresto 24 1 tab PO BID-W/MEALS 05/20/22 05/22/22 History mg-26 mg Tablet] Spironolactone [Aldactone] 25 mg PO PC-LUNCH 05/20/22 05/22/22 History carvediloL [Coreg] 3.125 mg PO BID-W/MEALS 05/20/22 05/22/22 History metFORMIN HCL 1,000 mg PO BID-W/MEALS 05/20/22 05/22/22 History Apixaban [Eliquis] 5 mg PO BID 05/22/22 05/23/22 History Allergies Allergy/AdvReac Type Severity Reaction Status Date / Time atorvastatin [From Lipitor] Allergy Rash/Hives Verified 05/22/22 22:06 Physical Exam Vitals: Vital Signs Temp Pulse Pulse Resp BP BP Pulse Ox 05/23/22 11:57 97.9 F 74 18 164/90 98 05/23/22 08:00 98.1 F 81 18 161/83 97 05/23/22 07:40 80 05/23/22 07:25 80 05/23/22 05:12 18 05/23/22 04:36 98.4 F 72 18 169/95 97 05/23/22 03:16 79 12 118/56 94 L 05/23/22 02:49 79 16 05/23/22 00:07 80 16 125/45 97 05/22/22 21:00 73 17 163/82 05/22/22 18:59 98 18 151/101 98 Intake and Output 05/22/22 05/23/22 05/23/22 22:59 06:59 14:59 Other: Voiding Method Toilet Urinal # Voids 1 Weight 104.326 kg 104.326 kg Results 05/22/22 19:34 05/22/22 19:34 Cardiac Enzymes 05/22/22 05/22/22 05/22/22 Range/Units 19:34 19:34 20:51 AST 23 (17-59) U/L Troponin I 0.037 H* 0.039 H* (0.000-0.034) ng/mL 05/22/22 Range/Units 23:50 AST (17-59) U/L Troponin I 0.036 H* (0.000-0.034) ng/mL Coagulation 05/22/22 Range/Units 19:34 PT 11.1 (9.0-12.0) sec APTT 22.9 (22.0-30.0) sec Lipids 05/23/22 Range/Units 07:32 Triglycerides 118.00 (0.00-149.00) mg/dL Cholesterol 149.00 (0.00-200.00) mg/dL HDL Cholesterol 38.00 L (40.00-60.00) mg/dL Cholesterol/HDL Ratio 3.92 Ratio CBC 05/22/22 Range/Units 19:34 WBC 10.7 H (3.8-10.6) k/uL RBC 5.09 (4.30-5.90) m/uL Hgb 15.8 (13.0-17.5) gm/dL Hct 46.9 (39.0-53.0) % Plt Count 231 (150-450) k/uL Comprehensive Metabolic Panel 05/22/22 Range/Units 19:34 Sodium 136 L (137-145) mmol/L Potassium 3.9 (3.5-5.1) mmol/L Chloride 102 (98-107) mmol/L Carbon Dioxide 25 (22-30) mmol/L BUN 27 H (9-20) mg/dL Creatinine 1.34 H (0.66-1.25) mg/dL Glucose 138 H (74-99) mg/dL Calcium 9.1 (8.4-10.2) mg/dL AST 23 (17-59) U/L ALT 16 (4-49) U/L Alkaline Phosphatase 61 (38-126) U/L Total Protein 7.0 (6.3-8.2) g/dL Albumin 3.9 (3.5-5.0) g/dL Current Medications Generic Name Dose Route Start Last Admin Trade Name Freq PRN Reason Stop Dose Admin Acetaminophen 650 mg 05/22/22 20:24 Acetaminophen Tab 325 Mg Tab PO Q6HR PRN Pain Albuterol Sulfate 2.5 mg 05/22/22 20:27 Albuterol Nebulized 2.5 Mg/3 Ml INHALATION RT-Q6H PRN Shortness Of Breath Apixaban 5 mg 05/23/22 09:00 05/23/22 08:37 Apixaban 5 Mg Tab PO 5 mg BID JESSICA Administration Protocol Aspirin 325 mg 05/23/22 09:00 05/23/22 08:37 Aspirin 325 Mg Tab PO 325 mg DAILY JESSICA Administration Carvedilol 3.125 mg 05/22/22 21:00 05/23/22 08:37 Carvedilol 3.125 Mg Tab PO 3.125 mg BID JESSICA Administration Dextrose/Water 25 ml 05/22/22 20:30 Dextrose 50% Syringe 50 Ml IVP PER PROTOCOL PRN Hypoglycemia Protocol Dextrose/Water 50 ml 05/22/22 20:30 Dextrose 50% Syringe 50 Ml IVP PER PROTOCOL PRN Hypoglycemia Protocol Furosemide 40 mg 05/23/22 09:00 05/23/22 08:36 Furosemide 40 Mg Tab PO 40 mg DAILY JESSICA Administration Insulin Aspart 0 unit 05/22/22 21:00 05/23/22 11:52 Insulin Aspart (Novolog) 100 Unit/Ml Vial SQ Not Given ACHS JESSICA Protocol Ipratropium [place] 0.5 mg 05/23/22 08:00 05/23/22 10:57 Ipratropium 0.5 Mg/2.5 Ml Nebu INHALATION Not Given RT-QID JESSICA Non-Formulary Medication 1.5 mg 05/26/22 09:00 Dulaglutide [Trulicity] SQ TU JESSICA Non-Formulary Medication 10 mg 05/23/22 09:00 05/23/22 08:37 Rosuvastatin PO Not Given DAILY JESSICA Sacubitril/Valsartan 1 each 05/22/22 21:00 05/23/22 08:36 Sacubitril/Valsartan 24 Mg-26 Mg Tablet PO 1 each BID JESSICA Administration Spironolactone 25 mg 05/23/22 09:00 05/23/22 08:36 Spironolactone 25 Mg Tab PO 25 mg DAILY JESSICA Administration Intake and Output 05/22/22 05/23/22 05/23/22 22:59 06:59 14:59 Other: Voiding Method Toilet Urinal # Voids 1 Weight 104.326 kg 104.326 kg 05/22/22 19:34 05/22/22 19:34
--- NOTE | 2022-05-23 15:40 | HP ---
HISTORY AND PHYSICAL CHIEF COMPLAINTS: Weakness and numbness of the right side of the body. HISTORY OF PRESENT ILLNESS: This 67-year-old gentleman with a past medical history of hypertension, diabetes mellitus, being followed by Dr. Raimundo Smith in the outpatient setting, was not feeling well. About 2 days ago the patient had generalized weakness. Patient came to [facility] and was subsequently discharged home. An outpatient MRI showed evidence of left temporal stroke and 2D echo was also ordered which showed a possible left apical thrombus. The patient came to the ER again and was admitted for further evaluation and treatment. There is no history of any fever, rigor or chills at this time. PAST MEDICAL HISTORY: Reviewed. It includes diabetes mellitus, hypertension. HOME MEDICATIONS: Reviewed. They include Eliquis. Rest of the medications and doses are reviewed. ALLERGIES: LIPITOR. FAMILY HISTORY: No history of heart disease or strokes in the family. SOCIAL HISTORY: No history of smoking or alcohol. REVIEW OF SYSTEMS: Fourteen-point review of systems negative except as mentioned earlier. PHYSICAL EXAMINATION: Pulse is 81, blood pressure 161/83, respiration 18. HEENT: Conjunctivae normal. NECK: No jugular venous distention. CARDIOVASCULAR: S1, S2 muffled. RESPIRATION: Breath sounds diminished at the bases. No rhonchi. No crackles. ABDOMEN: Soft, nontender. LEGS: No edema. No swelling. NERVOUS SYSTEM: Higher functions as mentioned earlier. Moves all 4 limbs. Mild diffuse weakness. LYMPHATICS: No lymph node palpable in neck, axillae or groin. SKIN: No ulcer, rash, bleeding. JOINTS: No active deforming arthropathy. LABS: Troponins are noted; 0.036. Other labs are noted. ASSESSMENT: 1. Acute left medial temporal and periventricular stroke extending to the inferior left thalamus. 2. Left ventricular apical thrombus. 3. Troponin 0.036. 4. Hypertension. 5. Diabetes mellitus. 6. Multiple medical issues. RECOMMENDATIONS AND DISCUSSION: In this 67-year-old gentleman who presented with multiple complex medical issues, we will monitor the patient closely. Obtain cardiology and neurology evaluations. Patient was started on apixaban. Otherwise, PT/OT evaluation. The patient is also on antiplatelets at this time. Prognosis is guarded because of multiple complex medical issues. Further recommendations to follow. I would also recommend ultrasound of the neck to complete the workup. See orders for further details. Prognosis guarded. Discussed with the patient and family at length. MMODL / IJN: [id number] /
[2022-05-23 16:42] LABS: Glucose,Whole Blood 295 mg/dL (70-110)
--- NOTE | 2022-05-23 19:49 | US ---
EXAMINATION TYPE: US carotid duplex BILAT DATE OF EXAM: 05/23/2022 COMPARISON: CLINICAL HISTORY: stroke. No HTN, no prior hx tia TECHNIQUE: Carotid duplex ultrasound examination. Indirect Doppler criteria was utilized. FINDINGS: EXAM MEASUREMENTS: RIGHT: Peak Systolic Velocity (PSV) cm/sec ----- Right CCA: 76.8 ----- Right ICA: 61.0 ----- Right ECA: 73.5 ICA/CCA ratio: 0.8 RIGHT: End Diastole cm/sec ----- Right CCA: 10.3 ----- Right ICA: 23.5 ----- Right ECA: 0.0 LEFT: Peak Systolic Velocity (PSV) cm/sec ----- Left CCA: 61.4 ----- Left ICA: 112.9 ----- Left ECA: 91.9 ICA/CCA ratio: 1.8 LEFT: End Diastole cm/sec ----- Left CCA: 8.7 ----- Left ICA: 25.7 ----- Left ECA: 0.0 VERTEBRALS (direction of flow): Right Vertebral: Antegrade Left Vertebral: Antegrade Rhythm: Normal [employer] NOTES: No wall thickening or plaque visualized. No elevated velocities or significant st enosis. IMPRESSION: There is antegrade flow in the vertebral arteries. The images and measurements suggest less than 15% stenosis in both internal carotid arteries. Criteria for Assigning % of Stenosis / Diameter reduction (Estimation based on the indirect measurements of the internal carotid artery velocities (ICA PSV). 1. Normal (no stenosis)=ICA PSV < 125 cm/s: ratio < 2.0: ICA EDV<40 cm/s. 2. Less than 50% stenosis=ICA PSV < 125 cm/s: ratio < 2.0: ICA EDV<40 cm/s. 3. 50 to 69% stenosis=ICA PSV of 125 to 230 cm/s: ration 2.0 ? 4.0: ICA EDV 40-100 cm/s. 4. Greater than 70% stenosis to near occlusion= ICA PSV > 230 cm/s: ratio > 4.0: ICA EDV > 100 cm/s. 5. Near occlusion= ICA PSV velocities may be low or undetectable: variable ratio and ICA EDV. 6. Total occlusion=unable to detect flow.
[2022-05-23 20:26] LABS: Glucose,Whole Blood 124 mg/dL (70-110)
[2022-05-24 06:03] LABS: Glucose,Whole Blood 130 mg/dL (70-110)
[2022-05-24] MEDS: INSULIN ASPART (NovoLOG) 100 UNIT/ML VIAL SQ SCH ×4 (06:17→20:37)
[2022-05-24 07:40] LABS: Basophils # (A) 0.1 k/uL (0-0.2); Basophils % (A) 1 %; Eosinophils # (A) 0.4 k/uL (0-0.7); Eosinophils % (A) 4 %; HCT 44.7 % (39.0-53.0); HGB 14.8 gm/dL (13.0-17.5); Lymphocytes # (A) 2.5 k/uL (1.0-4.8); Lymphocytes % (A) 25 %; MCV 93.9 fL (80.0-100.0); Mean Platelet Volume 6.6; Monocytes # (A) 0.6 k/uL (0-1.0); Monocytes % (A) 6 %; Neutrophils # (A) 6.3 k/uL (1.3-7.7); Neutrophils % (A) 63 %; Platelet Count 205 k/uL (150-450); RBC 4.76 m/uL (4.30-5.90); RDW 13.2 % (11.5-15.5); WBC 10.1 k/uL (3.8-10.6)
[2022-05-24 07:52] LABS: Albumin 3.4 g/dL (3.5-5.0); Calcium 8.3 mg/dL (8.4-10.2); Potassium 3.6 mmol/L (3.5-5.1); Total Protein 6.3 g/dL (6.3-8.2)
[2022-05-24] MEDS: IPRATROPIUM 0.5 MG/2.5 ML NEBU INHALATION SCH ×4 (08:14→21:13)
[2022-05-24] MEDS: APIXABAN 5 MG TAB PO SCH ×2 (09:03→20:37)
[2022-05-24] MEDS: ASPIRIN 325 MG TAB PO SCH (09:03)
[2022-05-24] MEDS: SPIRONOLACTONE 25 MG TAB PO SCH (09:04)
[2022-05-24] MEDS: FUROSEMIDE 40 MG TAB PO SCH (09:04)
[2022-05-24] MEDS: carvediloL 3.125 MG TAB PO SCH ×2 (09:04→20:37)
[2022-05-24] MEDS: SACUBITRIL/VALSARTAN 24 MG-26 MG TABLET PO SCH ×2 (09:05→20:37)
[2022-05-24] MEDS: NON FORMULARY DRUG (Rosuvastatin 10 MG Tablet) PO SCH (09:06)
[2022-05-24 11:28] LABS: Glucose,Whole Blood 212 mg/dL (70-110)
--- NOTE | 2022-05-24 12:14 | P.CNNES ---
History of Present Illness Consult date: 05/23/22 Requesting physician: Hira Bhagat Reason for Consult: Acute CVA, greater than 48 hours old History of Present Illness: Patient is a 67-year-old right-handed male came to the hospital yesterday at 6:51 PM for an acute stroke symptoms. Patient's and daughter were also present today. Patient's symptoms of stroke started on 05/20/2022, 2 days prior to arrival to the ER. Patient states that on Wednesday, he worked a lot, and felt dehydrated. He took a nap and when he woke up, was sweating all over with generalized weakness. Also had nausea and an episode of emesis as per ED documentation. Also complained of visual disturbance with difficulty looking on the right side. He came to the [facility] where he underwent CT of the head which was normal. CTA of head and neck showed no evidence of dissection of the cervical internal carotid arteries or vertebral arteries or any evidence of significant stenosis of the carotid bifurcations. No evidence of high-grade stenosis or intracranial aneurysm. An ophthalmology consultation was initiated for right sided visual disturbance, and was seen by Dr. Cliff Baez, and the note was reviewed, appears he was felt to have a macular hole. Patient denied any focal numbness, tingling. Apparently it was documented his symptoms improved in the ER including weakness, and he was discharged. Patient states that when he went home, he was having difficulty with reading, couldn't read, couldn't recognize words. His generalized weakness however was better. Patient the next day followed up with his primary physician Dr. Smith on . MRI of the brain and echo were initiated. These were done as an outpatient, which revealed evidence of a thrombus in the left ventricle and MRI of the brain revealed acute stroke, as mentioned below. He was therefore admitted to the hospital. Patient states he has been diagnosed with CHF since January 2022. Patient states that he used to take aspirin for quite some time, but about 6 months ago, either his animal sticker recommended or he assumed (he did not remember) but he stopped taking aspirin since then. Patient also tells me that he has history of right eye cataract surgery, and his right eye has been bad since then. It appears worse now. Patient denied any facial droop, slurred speech. He believes that his right foot is slightly weaker. Vital signs on arrival blood pressure 151/101, pulse rate 98, temperature 98.4. Brain MRI revealed acute ischemic type changes within the medial left temporal lobe in the periventricular region adjacent to the lateral ventricle extending into the inferior left thalamus. Moderately extensive additional chronic appearing periventricular white matter ischemic type changes. I personally reviewed MRI and agree with the findings. 2-D echo revealed ischemic cardiomyopathy with severe hypokinesia involving the anterior apical septal portion with estimated ejection fraction about 30%. There isn't apical filling defect suggestive of thrombus appears organized probably not acute. Mitral annular calcification and aortic sclerosis without restriction. Anticoagulation recommended. CTA revealed no evidence of dissection of the cervical internal carotid arteries or vertebral arteries or any evidence of significant stenosis of the carotid bifurcations. No evidence of high-grade stenosis or intracranial aneurysm. EKG shows sinus rhythm possible right ventricular conduction delay. Chest x-ray showed chronic changes without acute pulmonary process. Blood test shows WBC 10.7 hemoglobin 15.8, PT/PTT normal, sodium 136 potassium 3.9. BUN 27, creatinine 1.34. Hepatic panel normal, troponin is mildly elevated 0.037. Patient has history of diabetes for last 22 years, also has hypertension. He denies any tobacco or alcohol abuse. Patient has been started on Eliquis 5 mg twice a day. Also aspirin 325 mg daily. Crestor 10 mg. Overall patient states that he was slightly better, and Wednesday was even more better. Today on Wednesday, he is a lot better. He denies any neurological symptoms since the onset on Wednesday. Review of Systems All 14 points of review systems reviewed, unremarkable except as mentioned in HPI. Past Medical History Past Medical History: Diabetes Mellitus, Hypertension, Prostate Disorder History of Any Multi-Drug Resistant Organisms: None Reported Past Surgical History: Heart Catheterization, Prostate Surgery Past Anesthesia/Blood Transfusion Reactions: No Reported Reaction Past Psychological History: No Psychological Hx Reported Smoking Status: Never smoker Past Alcohol Use History: None Reported Past Drug Use History: None Reported Medications and Allergies Home Medications Medication Instructions Recorded Confirmed Type Albuterol Inhaler [Ventolin Hfa 2 puff INHALATION RT-Q6H PRN 05/20/22 05/22/22 History Inhaler] Dulaglutide [Trulicity] 1.5 mg SQ TU 05/20/22 05/22/22 History Furosemide [Lasix] 40 mg PO DAILY 05/20/22 05/22/22 History Rosuvastatin [Crestor] 10 mg PO DAILY 05/20/22 05/22/22 History Sacubitril/Valsartan [Entresto 24 1 tab PO BID-W/MEALS 05/20/22 05/22/22 History mg-26 mg Tablet] Spironolactone [Aldactone] 25 mg PO PC-LUNCH 05/20/22 05/22/22 History carvediloL [Coreg] 3.125 mg PO BID-W/MEALS 05/20/22 05/22/22 History metFORMIN HCL 1,000 mg PO BID-W/MEALS 05/20/22 05/22/22 History Apixaban [Eliquis] 5 mg PO BID 05/22/22 05/23/22 History Allergies Allergy/AdvReac Type Severity Reaction Status Date / Time atorvastatin [From Lipitor] Allergy Rash/Hives Verified 05/22/22 22:06 Physical Examination - Vital Signs Vital Signs: Vital Signs Temp Pulse Pulse Resp BP BP Pulse Ox 05/23/22 08:00 98.1 F 81 18 161/83 97 05/23/22 07:40 80 05/23/22 07:25 80 05/23/22 05:12 18 05/23/22 04:36 98.4 F 72 18 169/95 97 05/23/22 03:16 79 12 118/56 94 L 05/23/22 02:49 79 16 05/23/22 00:07 80 16 125/45 97 05/22/22 21:00 73 17 163/82 05/22/22 18:59 98 18 151/101 98 Intake and Output 05/22/22 05/23/22 05/23/22 22:59 06:59 14:59 Other: Voiding Method Toilet Urinal # Voids 1 Weight 104.326 kg 104.326 kg Patient is an elderly male, in no acute distress. Patient is alert awake oriented to time place and person. Patient knows it is April 2022 and that is in [facility]. Patient's expressive language appears intact. His comprehension is intact. He has trouble with naming objects, as he was able to name some, but not able to name some objects. S ometimes he has to think quite a bit. He can repeat perfectly normally. He could not read hardly at all, but could write perfectly. (Alexia without agraphia) there is no dysarthria. Attention, concentration and fund of knowledge is adequate. On cranial nerve examination, right pupil is eccentric, tear shaped to the right. Left pupil is round and reacting. He has right homonymous hemianopia, which is up to midline in the superior region, but slightly bent about 30 to the right in the lower visual field. His extraocular muscles are intact with no nystagmus. Face is symmetric, tongue protrudes to the midline. Palatal elevation and sensation normal, hearing and shoulder shrug normal, facial sensation normal. Shoulder shrug normal. On muscle strength testing, there is no pronator drift and the strength is normal in arms and legs distally and proximally. Deep tendon reflexes are symmetric, trace in the upper limbs at biceps and brachioradialis, 1 at the knees 0 ankles and plantar is up on the right, probably down on the left. Sensory to touch is equal with no neglect on double simultaneous stimulation. Cerebellar function showed no ataxia for [id number] testing. Tone and bulk of muscles normal. Gait deferred. On general examination, there is no carotid bruit or murmur, S1-S2 audible. Abdomen is soft nontender. Bowel sounds present. Chest is clear to auscultat ion. No peripheral edema. Results - Laboratory Findings CBC and BMP: 05/24/22 07:01 05/24/22 07:01 Abnormal Lab Findings: Abnormal Labs 05/22/22 05/22/22 05/22/22 19:34 19:34 19:34 WBC 10.7 H Neutrophils # 7.9 H Sodium 136 L BUN 27 H Creatinine 1.34 H Glucose 138 H POC Glucose (mg/dL) Hemoglobin A1c Total Bilirubin 2.3 H Troponin I 0.037 H* 05/22/22 05/22/22 05/22/22 20:48 20:51 20:51 WBC Neutrophils # Sodium BUN Creatinine Glucose POC Glucose (mg/dL) 139 H Hemoglobin A1c 8.0 H Total Bilirubin Troponin I 0.039 H* 05/22/22 05/23/22 23:50 05:49 WBC Neutrophils # Sodium BUN Creatinine Glucose POC Glucose (mg/dL) 128 H Hemoglobin A1c Total Bilirubin Troponin I 0.036 H* Assessment and Plan Assessment: * Acute ischemic stroke involving the left medial temporal lobe, presenting with right homonymous hemianopia and alexia without agraphia. Stroke is cardioembolic in nature. * Apical thrombus, which is new compared to echo from January 2022 * Cardiomyopathy with EF 25-30% * Type 2 diabetes * Hypertension Plan: * Patient is high risk for recurrent ischemic strokes due to presence of of apical thrombus noted on the 2-D echo. * Although patient has an acute ischemic stroke, however the benefits of anticoagulation significantly outweigh the hemorrhagic risks. Patient has been started on Eliquis 5 mg twice a day and aspirin. * Patient states he is feeling better day by day. * PT OT speech therapy. * Continue close neuro checks. * Cardiology on board. * Discussed with family in detail. * Neurology will follow. Thank you for the consult. Time with Patient: Greater than 30
--- NOTE | 2022-05-24 14:14 | P.PN ---
Subjective HISTORY OF PRESENTING ILLNESS Patient is a pleasant 67-year-old male with history of diabetes, hypertension, patient is pleasant 67-year-old male with history of hypertension, obesity, cardiomyopathy EF 25-30%, hyperlipidemia who presents with symptoms that started on Wednesday of feeling somewhat sweaty, visual disturbances, some difficulty reading and difficulty coming up with words. Initially was evaluated in the ER and occupational work experience teacher saw patient with no significant changes. He then underwent outpatient workup with a brain MRI consistent with acute/subacute stroke as well as a transthoracic echo 05/22 showed EF 25-30% with apical hypokinesis and apical thrombus. Prior echo from January showed EF 20-25% however no thrombus noted at that time. He denies any heart failure type symptoms and no chest pain or pressure or shortness breath. Denies any lightheadedness or dizziness. He has not had a heart catheterization last 20 years and per patient only followed up with Dr. Segundo once. Unclear if his cardiomyopathy is ischemic or nonischemic. Given MRI and echo findings he was told to present to the emergency department and blood work showed creatinine 1.3, troponin 0.033, total cholesterol 149, LDL 87, VLDL 23 and HDL 38, hemoglobin A1c 8.0. EKG shows sinus rhythm, left axis deviation, Q waves 3 and aVF, V3 through V6. 05/24 Patient seen and examined. Patient has been placed on Eliquis for his apical thrombus which she is tolerating well. Additionally placed on aspirin by neurology. Denies any chest pain or pressure or shortness breath. Carotid ultrasound was performed which shows less than 15% stenosis bilaterally. PHYSICAL EXAMINATION Vital signs reviewed. CONSTITUTIONAL: No apparent distress. HEENT: Head is normocephalic. Pupils are equal, round. Sclerae anicteric. Mucous membranes of the mouth are moist. No JVD. No carotid bruit. CHEST EXAMINATION: Lungs are clear to auscultation. No chest wall tenderness is noted on palpation or with deep breathing. HEART EXAMINATION: Regular rate and rhythm. S1, S2 heard. No murmurs, gallops or rub. ABDOMEN: Soft, nontender. Positive bowel sounds. EXTREMITIES: 2+ peripheral pulses, no lower extremity edema and no calf tenderness. NEUROLOGIC EXAMINATION: Patient is awake, alert and oriented x3. ASSESSMENT 1. Acute/subacute stroke 2. Apical thrombus new compared to echo from 01/2022 3. Cardiomyopathy with EF 25-30%, unclear ischemic versus nonischemic 4. Chronic systolic heart failure 5. Mildly elevated troponins, no signs or symptoms consistent with acute coronary syndrome 6. Chronic kidney disease 7. Diabetes mellitus type 2 PLAN Continue with anticoagulation for apical thrombus. Patient may need ischemic workup for his cardiomyopathy which appears he has not had previously however could be performed outpatient once he is recovered from a neurologic status. Blood pressures labile 130s up to 170s however predominantly improved today. Optimize heart failure regimen as able. Neurology recommendations appreciated. Objective - Vital Signs Vital signs: Vital Signs Temp 98.2 F 05/24/22 12:10 Pulse 94 05/24/22 12:10 Resp 18 05/24/22 12:10 BP 127/85 05/24/22 12:10 Pulse Ox 100 05/24/22 12:10 FiO2 Intake & Output 05/23/22 05/24/22 05/24/22 18:59 06:59 18:59 Intake Total 400 Balance 400 Intake: Oral 400 Other: Voiding Method Toilet Toilet Urinal Urinal # Voids 1 - Labs CBC & Chem 7: 05/24/22 07:01 05/24/22 07:01 Labs: Abnormal Lab Results - Last 24 Hours (Table) 05/23/22 05/23/22 05/24/22 Range/Units 16:42 20:25 06:01 BUN (9-20) mg/dL Creatinine (0.66-1.25) mg/dL Glucose (74-99) mg/dL POC Glucose (mg/dL) 295 H 124 H 130 H (70-110) mg/dL Calcium (8.4-10.2) mg/dL Total Bilirubin (0.2-1.3) mg/dL Albumin (3.5-5.0) g/dL 05/24/22 05/24/22 Range/Units 07:01 11:26 BUN 29 H (9-20) mg/dL Creatinine 1.40 H (0.66-1.25) mg/dL Glucose 128 H (74-99) mg/dL POC Glucose (mg/dL) 212 H (70-110) mg/dL Calcium 8.3 L (8.4-10.2) mg/dL Total Bilirubin 3.0 H (0.2-1.3) mg/dL Albumin 3.4 L (3.5-5.0) g/dL
--- NOTE | 2022-05-24 15:23 | PN ---
PROGRESS NOTE DATE OF SERVICE: 05/24/2022 This 67-year-old gentleman who was admitted with acute left temporal lobe infarction also had LV thrombus. No chest pain. No palpitations. No fever. The patient has memory issues. PHYSICAL EXAMINATION: Pulse 94, blood pressure 127/82, respiration 18. CHEST: Clear to auscultation. CARDIOVASCULAR: S1, S2 muffled. ABDOMEN: Soft. NERVOUS SYSTEM: No focal deficit. LABS: Reviewed. Glucose 222. ASSESSMENT: 1. Acute left medial temporal and periventricular stroke. 2. Left ventricular apical thrombus. 3. Troponin 0.036. 4. Hypertension. 5. Multiple medical issues. RECOMMENDATIONS AND DISCUSSION: In this 67-year-old gentleman who presented with multiple complex medical issues, we will monitor the patient closely, continue the antiplatelets. Will continue the anticoagulants. The overall prognosis is guarded because of multiple complex medical issues. Further recommendations to follow. Will cut down the aspirin to 81 daily. MMODL / IJN: [id number] /
[2022-05-24 16:32] LABS: Glucose,Whole Blood 168 mg/dL (70-110)
[2022-05-24 20:36] LABS: Glucose,Whole Blood 174 mg/dL (70-110)
--- NOTE | 2022-05-25 03:04 | P.PN ---
Subjective Progress Note Date: 05/24/22 Patient was seen for a follow-up. Patient states he is feeling better. Offers no new complaints. Denies headache. Objective - Vital Signs Vital signs: Vital Signs Temp 99.4 F 05/24/22 16:59 Pulse 68 05/24/22 16:59 Resp 18 05/24/22 16:59 BP 165/90 05/24/22 16:59 Pulse Ox 97 05/24/22 16:59 FiO2 Intake & Output 05/23/22 05/24/22 05/24/22 18:59 06:59 18:59 Intake Total 580 Balance 580 Intake: Oral 580 Other: Voiding Method Toilet Toilet Urinal Urinal # Voids 1 1 - Exam Patient is an elderly male, in no acute distress. Patient is alert awake oriented to time place and person. Patient knows it is April 2022 and that is in [facility]. Patient's expressive language appears intact. His comprehension is intact. He has trouble with naming some objects, as he was able to name knuckles, earlobe, but not able to name some objects like button. Sometimes he has to think quite a bit. He can repeat perfectly normally. He could not read hardly at all, except for some letters, but could write perfectly. (Alexia without agraphia). Please refer to the sample writing in the chart. There is no dysarthria. Attention, concentration intact and fund of knowledge is slightly limited. On cranial nerve examination, right pupil is eccentric, tear shaped to the right. Left pupil is round and reacting. Patient's right homonymous hemianopia has improved. It mainly now involve the right upper quadrant with some more improvement of vision in the right lower quadrant. His extraocular muscles are intact with no nystagmus. Face is symmetric, tongue protrudes to the midline. Palatal elevation and sensation normal, hearing and shoulder shrug normal, facial sensation normal. Shoulder shrug normal. On muscle strength testing, there is no pronator drift and the strength is normal in arms and legs distally and proximally. Deep tendon reflexes are symmetric, trace in the upper limbs at biceps and bra chioradialis, 1 at the knees 0 ankles and plantar is up on the right, probably down on the left. Sensory to touch is equal with no neglect on double simultaneous stimulation. Cerebellar function showed no ataxia for [id number] testing. Tone and bulk of muscles normal. Gait deferred. On general examination, there is no carotid bruit or murmur, S1-S2 audible. Abdomen is soft nontender. Bowel sounds present. Chest is clear to auscultation. No peripheral edema. - EENT ENT: Present: tonsillar swelling - Labs CBC & Chem 7: 05/24/22 07:01 05/24/22 07:01 Labs: Abnormal Lab Results - Last 24 Hours (Table) 05/23/22 05/24/22 05/24/22 Range/Units 20:25 06:01 07:01 BUN 29 H (9-20) mg/dL Creatinine 1.40 H (0.66-1.25) mg/dL Glucose 128 H (74-99) mg/dL POC Glucose (mg/dL) 124 H 130 H (70-110) mg/dL Calcium 8.3 L (8.4-10.2) mg/dL Total Bilirubin 3.0 H (0.2-1.3) mg/dL Albumin 3.4 L (3.5-5.0) g/dL 05/24/22 05/24/22 Range/Units 11:26 16:31 BUN (9-20) mg/dL Creatinine (0.66-1.25) mg/dL Glucose (74-99) mg/dL POC Glucose (mg/dL) 212 H 168 H (70-110) mg/dL Calcium (8.4-10.2) mg/dL Total Bilirubin (0.2-1.3) mg/dL Albumin (3.5-5.0) g/dL Assessment and Plan Assessment: * Acute ischemic stroke involving the left medial temporal lobe, presenting with right homonymous hemianopia and alexia without agraphia. Stroke is cardioembolic in nature. * Apical thrombus, which is new compared to echo from January 2022 * Cardiomyopathy with EF 25-30% * Type 2 diabetes * Hypertension Plan: * Patient is high risk for recurrent ischemic strokes due to presence of of apical thrombus noted on the 2-D echo. * Continue Eliquis 5 mg twice a day. Patient also on aspirin, which will defer to cardiology. * Patient states he is feeling better day by day. * PT OT speech therapy. * Continue close neuro checks. * DVT prophylaxis: Patient on Eliquis * Cardiology on board. * Dr. Josh Villarreal Will resume neurology service in the morning.
[2022-05-25 04:55] VITALS: RESP 17
[2022-05-25 06:07] LABS: Glucose,Whole Blood 142 mg/dL (70-110)
[2022-05-25] MEDS: INSULIN ASPART (NovoLOG) 100 UNIT/ML VIAL SQ SCH ×2 (06:17→12:16)
[2022-05-25 07:35] LABS: Basophils # (A) 0.1 k/uL (0-0.2); Basophils % (A) 1 %; Eosinophils # (A) 0.5 k/uL (0-0.7); Eosinophils % (A) 5 %; HCT 51.4 % (39.0-53.0); HGB 16.8 gm/dL (13.0-17.5); Lymphocytes # (A) 2.5 k/uL (1.0-4.8); Lymphocytes % (A) 22 %; MCH 30.9 pg (25.0-35.0); MCHC 32.7 g/dL (31.0-37.0); MCV 94.6 fL (80.0-100.0); Mean Platelet Volume 6.6; Monocytes # (A) 0.7 k/uL (0-1.0); Monocytes % (A) 6 %; Neutrophils # (A) 7.6 k/uL (1.3-7.7); Neutrophils % (A) 66 %; Platelet Count 262 k/uL (150-450); RBC 5.43 m/uL (4.30-5.90); RDW 13.3 % (11.5-15.5); WBC 11.6 k/uL (3.8-10.6)
[2022-05-25 07:51] LABS: Calcium 8.9 mg/dL (8.4-10.2); Potassium 4.1 mmol/L (3.5-5.1)
[2022-05-25] MEDS: NON FORMULARY DRUG (Rosuvastatin 10 MG Tablet) PO SCH (07:58)
[2022-05-25] MEDS: IPRATROPIUM 0.5 MG/2.5 ML NEBU INHALATION SCH ×3 (08:09→15:53)
[2022-05-25] MEDS: carvediloL 3.125 MG TAB PO SCH (08:14)
[2022-05-25] MEDS: APIXABAN 5 MG TAB PO SCH (08:14)
[2022-05-25] MEDS: SPIRONOLACTONE 25 MG TAB PO SCH (08:15)
[2022-05-25] MEDS: SACUBITRIL/VALSARTAN 24 MG-26 MG TABLET PO SCH (08:15)
[2022-05-25] MEDS: FUROSEMIDE 40 MG TAB PO SCH (08:15)
[2022-05-25] MEDS ORDERED: ASPIRIN 81 MG PO SCH (09:00)
[2022-05-25 11:44] LABS: Glucose,Whole Blood 219 mg/dL (70-110)
[2022-05-25 12:19] VITALS: BP 149/87; PULSE 72; TEMP 97.9
--- NOTE | 2022-05-25 13:28 | P.PN ---
Subjective Patient is a pleasant 67-year-old male with history of diabetes, hypertension, obesity, cardiomyopathy EF 25-30%, hyperlipidemia who presents with symptoms that started on Wednesday of feeling somewhat sweaty, visual disturbances, some difficulty reading and difficulty coming up with words. Initially was evaluated in the ER and distribution collection operator saw patient with no significant changes. He then underwent outpatient workup with a brain MRI consistent with acute/subacute stroke as well as a transthoracic echo 05/22 showed EF 25-30% with apical hyp okinesis and apical thrombus. Prior echo from January showed EF 20-25% however no thrombus noted at that time. He denies any heart failure type symptoms and no chest pain or pressure or shortness breath. Denies any lightheadedness or dizziness. He has not had a heart catheterization last 20 years and per patient only followed up with Dr. Segundo once. Unclear if his cardiomyopathy is ischemic or nonischemic. Given MRI and echo findings he was told to present to the emergency department and blood work showed creatinine 1.3, troponin 0.033, total cholesterol 149, LDL 87, VLDL 23 and HDL 38, hemoglobin A1c 8.0. EKG shows sinus rhythm, left axis deviation, Q waves 3 and aVF, V3 through V6. Carotid ultrasound was performed which shows less than 15% stenosis bilaterally. 05/25/2022 Patient seen and examined. Patient has been placed on Eliquis for his apical thrombus which he is tolerating well. Additionally placed on aspirin by neurology. Denies any chest pain or pressure or shortness breath. He is ambulating the halls without difficulty. No complaints. Feeling well. Meds: Eliquis 5 mg twice a day, aspirin 81 mg daily, Coreg 3.125 mg twice a day, Lasix 40 mg daily, simvastatin 10 mg daily, spironolactone 25 mg daily, Entresto February 2426 mg twice a day PHYSICAL EXAMINATION Vital signs reviewed. CONSTITUTIONAL: No apparent distress. HEENT: Head is normocephalic. Pupils are equal, round. Sclerae anicteric. Mucous membranes of the mouth are moist. No JVD. No carotid bruit. CHEST EXAMINATION: Lungs are clear to auscultation. No chest wall tenderness is noted on palpation or with deep breathing. HEART EXAMINATION: Regular rate and rhythm. S1, S2 heard. No murmurs, gallops or rub. ABDOMEN: Soft, nontender. Positive bowel sounds. EXTREMITIES: 2+ peripheral pulses, no lower extremity edema and no calf tenderness. NEUROLOGIC EXAMINATION: Patient is awake, alert and oriented x3. ASSESSMENT Acute/subacute stroke Apical thrombus new compared to echo from 01/2022 Cardiomyopathy with EF 25-30%, unclear ischemic versus nonischemic Chronic systolic heart failure Mildly elevated troponins, no signs or symptoms consistent with acute coronary syndrome Chronic kidney disease Diabetes mellitus type 2 PLAN Continue with anticoagulation for apical thrombus, recommend Eliquis 10mg BID for 7 days, then 5mg BID thereafter Patient may need ischemic workup for his cardiomyopathy which appears he has not had previously however could be performed outpatient once he is recovered from a neurologic status. Optimize heart failure regimen as able. Neurology recommendations appreciated. From a cardiology perspective patient is stable and discharge can be considered Follow up with Dr. Segundo in 1-2 weeks Nurse practitioner note has been reviewed by physician. Signing provider agrees with the documented findings, assessment, and plan of care. Objective - Vital Signs Vital signs: Vital Signs Temp 97.5 F L 05/25/22 07:54 Pulse 92 05/25/22 07:58 Resp 17 05/25/22 07:54 BP 121/76 05/25/22 07:54 Pulse Ox 96 05/25/22 07:54 FiO2 Intake & Output 05/24/22 05/25/22 05/25/22 18:59 06:59 18:59 Intake Total 580 180 Balance 580 180 Intake: Oral 580 180 Other: Voiding Method Toilet Toilet Toilet Urinal Urinal Urinal # Voids 1 1 - Labs CBC & Chem 7: 05/25/22 07:20 05/25/22 07:20 Labs: Abnormal Lab Results - Last 24 Hours (Table) 05/24/22 05/24/22 05/24/22 Range/Units 11:26 16:31 20:34 WBC (3.8-10.6) k/uL Sodium (137-145) mmol/L BUN (9-20) mg/dL Creatinine (0.66-1.25) mg/dL Glucose (74-99) mg/dL POC Glucose (mg/dL) 212 H 168 H 174 H (70-110) mg/dL 05/25/22 05/25/22 05/25/22 Range/Units 06:06 07:20 07:20 WBC 11.6 H (3.8-10.6) k/uL Sodium 136 L (137-145) mmol/L BUN 31 H (9-20) mg/dL Creatinine 1.43 H (0.66-1.25) mg/dL Glucose 179 H (74-99) mg/dL POC Glucose (mg/dL) 142 H (70-110) mg/dL
[2022-05-25] MEDS ORDERED: APIXABAN 5 MG TAB PO SCH (21:00)
[2022-05-26] MEDS ORDERED: NON FORMULARY DRUG (Dulaglutide [Trulicity] 1.5 MG/0.5 ML Each) SQ SCH (09:00)
--- NOTE | 2022-05-26 14:47 | P.PN ---
Progress Note - Text Patient underwent an outpatient Echo on 05/22/2022. mineral technologist Naman notified this health technical writer of an abnormality she saw of his Echo, stating the patient had a large thrombus in his apex. mineral technologist informing this health technical writer that has been paged of abnormality. This health technical writer notified by personal phone call, who is hotel receptionist covering outpatient stress lab that day, with no response. This health technical writer reviewed prior Echo from 01/2022 that did not report a thrombus but did report cardiomyopathy with EF 20-25%. This health technical writer reached out to patient's primary senior financial reporting analyst Dr. Segundo, who recommended patient go to Emergency Department. Then this health technical writer was called by , who is hotel receptionist for the non-invasive department that [facility], who informed me to NOT send patient to the emergency department and he will review the patient's echo and discuss with the patient's PCP Dr. Smith. This information was discussed with the Echo techs. Per patient should not be sent to the emergency department. Echo Techs were updated. Dr. Segundo was also updated later date as well.
--- NOTE | 2022-05-26 15:24 | P.DS ---
Providers Date of admission: 05/22/22 19:39 Expected date of discharge: 05/25/22 Attending physician: Ally Quezada Consults: 05/22/22 20:25 Consult Physician Urgent Consulting Provider: Rolo Mclain Consult Reason/Comments: Cardiac thrombus, elevated troponin, acute CVA Do you want consulting provider notified?: Yes Consult Physician Urgent Consulting Provider: Lucille Katz Consult Reason/Comments: Acute CVA, greater than 48 hours old Do you want consulting provider notified?: Yes Primary care physician: Raimundo Smith Hospital Course: Final diagnosis Acute left medial temporal and periventricular stroke Left ventricular apical thrombus Troponin 0.036 Hypertension Multiple medical issues Discharge disposition Patient is being discharged in a stable condition with guarded prognosis to home . Patient will follow-up with Dr. Smith in the outpatient setting upon discharge. Patient is to also follow-up with cardiology, neurology, Dr. Segundo in the outpatient setting. Patient will continue on Eliquis and aspirin on discharge. Total time taken is greater than 35 minutes. Hospital course This is a 67-year-old male who was recently admitted with acute left temporal lobe infarction also had LV thrombus and was being closely monitored. Neurology and cardiology following closely and patient is maintained on antiplatelets along with Eliquis. Patient was maintained on 5 mg twice daily although per cardiology will continue at 10 mg twice daily for the next 1 week and then titrate back down and continue baby aspirin daily. Recommend cardiology follow- up in neurology early this week. Patient will need further cardiomyopathy workup outpatient which was discussed with the patient by cardiology. Currently no reports of chest pain, shortness of breath, or palpitations. Patient is afebrile. No reports of nausea or vomiting and patient is tolerating diet. Patient will be discharged home today. Guarded prognosis. Physical exam: Gen: This is a 67-year-old male awake, alert and oriented 3, well-developed, well-nourished HEENT: Head is atraumatic, normocephalic. Pupils equal, round. Sclerae is anicteric. NECK: Supple. No JVD. No lymphadenopathy. No thyromegaly. LUNGS: Diminished breath sounds bilaterally with no wheezing or rhonchi noted. No intercostal retractions. HEART: S1, S2 are muffled ABDOMEN: Soft. Bowel sounds are present. No masses. No tenderness. EXTREMITIES: No pedal edema. No calf tenderness. NEUROLOGICAL: Patient is awake, alert and oriented x3. Cranial nerves 2 through 12 are grossly intact. Please refer to medication reconciliation sheet for a list of medications. The impression and plan of care has been dictated by Angela Hunt, Nurse Practitioner as directed. Dr. Damien MD I have performed a history and examination and MDM of this patient, discussed the same with the dictator, and agree with the dictator's assessment and plan as written ,documented as a scribe. Based on total visit time, I have performed more than 50% of the visit. Patient Condition at Discharge: Fair Plan - Discharge Summary Discharge Rx Participant: No New Discharge Prescriptions: New Apixaban [Eliquis] 10 mg PO BID 7 Days #28 tab Aspirin 81 mg PO DAILY 30 Days #30 tab Acetaminophen Tab [Tylenol] 650 mg PO Q6HR PRN tab PRN Reason: Pain Continue metFORMIN HCL 1,000 mg PO BID-W/MEALS carvediloL [Coreg] 3.125 mg PO BID-W/MEALS Sacubitril/Valsartan [Entresto 24 mg-26 mg Tablet] 1 tab PO BID-W/MEALS Furosemide [Lasix] 40 mg PO DAILY Dulaglutide [Trulicity] 1.5 mg SQ TU Spironolactone [Aldactone] 25 mg PO PC-LUNCH Rosuvastatin [Crestor] 10 mg PO DAILY Albuterol Inhaler [Ventolin Hfa Inhaler] 2 puff INHALATION RT-Q6H PRN PRN Reason: Shortness Of Breath Apixaban [Eliquis] 5 mg PO BID #0 Discharge Medication List Albuterol Inhaler [Ventolin Hfa Inhaler] 2 puff INHALATION RT-Q6H PRN 05/20/22 [History] Dulaglutide [Trulicity] 1.5 mg SQ TU 05/20/22 [History] Furosemide [Lasix] 40 mg PO DAILY 05/20/22 [History] Rosuvastatin [Crestor] 10 mg PO DAILY 05/20/22 [History] Sacubitril/Valsartan [Entresto 24 mg-26 mg Tablet] 1 tab PO BID-W/MEALS 05/20/22 [History] Spironolactone [Aldactone] 25 mg PO PC-LUNCH 05/20/22 [History] carvediloL [Coreg] 3.125 mg PO BID-W/MEALS 05/20/22 [History] metFORMIN HCL 1,000 mg PO BID-W/MEALS 05/20/22 [History] Acetaminophen Tab [Tylenol] 650 mg PO Q6HR PRN tab 05/25/22 [Rx] Apixaban [Eliquis] 5 mg PO BID #0 05/25/22 [Rx] Apixaban [Eliquis] 10 mg PO BID 7 Days #28 tab 05/25/22 [Rx] Aspirin 81 mg PO DAILY 30 Days #30 tab 05/25/22 [Rx] Follow up Appointment(s)/Referral(s): Raimundo Smith MD [Primary Care Provider] - 05/27/22 2:45 pm Jimmy Segundo MD [STAFF PHYSICIAN] - 06/01/22 11:00 am Rolo Mclain DO [STAFF PHYSICIAN] - 1 Week Daniel Espinoza MD [Medical Doctor] - 1 Week (Patient must schedule the appointment. Office would not let nurse schedule the appointment. ) Ambulatory/Diagnostic Orders: Basic Metabolic Panel [LAB.AMB] Time Frame: 3 Days, Location: None Selected Patient Instructions/Handouts: Hypertension (DC), Stroke (DC), High Troponin Levels (GEN) Activity/Diet/Wound Care/Special Instructions: Activity Limited until follow-up Follow-up with neurology next week Follow-up with primary care provider on discharge Follow-up with etiology outpatient Continue medications as prescribed Recommend repeat labs in the next 2-3 days Discharge Disposition: HOME SELF-CARE
[2022-06-01] MEDS ORDERED: APIXABAN 5 MG TAB PO SCH (21:00)
== END 2022-05-25 16:28 | disposition home or self-care (01) | DRG 65 ==
LOC: EC 18:51 → 3SCARD 19:39
PROVIDERS: ADMIT Hospitalist; ATTEND Hospitalist
DX: I63.40 Cerebral infarction due to embolism of unspecified cerebral artery (principal); I13.0 Hypertensive heart and chronic kidney disease with heart failure and stage 1 through stage 4 chronic kidney disease, or unspecified chronic kidney disease; I50.22 Chronic systolic (congestive) heart failure; E11.22 Type 2 diabetes mellitus with diabetic chronic kidney disease; I51.3 Intracardiac thrombosis, not elsewhere classified; H53.461 Homonymous bilateral field defects, right side; I65.23 Occlusion and stenosis of bilateral carotid arteries; H53.9 Unspecified visual disturbance; I25.5 Ischemic cardiomyopathy; N18.9 Chronic kidney disease, unspecified; N42.9 Disorder of prostate, unspecified; Z79.84 Long term (current) use of oral hypoglycemic drugs; Z79.899 Other long term (current) drug therapy; E78.5 Hyperlipidemia, unspecified; I70.0 Atherosclerosis of aorta; Z79.01 Long term (current) use of anticoagulants; Z79.82 Long term (current) use of aspirin; Z86.73 Personal history of transient ischemic attack (TIA), and cerebral infarction without residual deficits; Z88.8 Allergy status to other drugs, medicaments and biological substances; Z98.41 Cataract extraction status, right eye
CPT/HCPCS: 36415; 71045; 80048; 80053; 80061; 83036; 84484; 85025; 85610; 85730; 93005; 93880; 94640; 96360; 96361; 99285

== ENCOUNTER → 2022-05-22 | Outpatient (CLI) | payer MEDICARE ==
--- NOTE | 2022-05-22 13:10 | MR ---
EXAMINATION TYPE: MR brain wo/w con DATE OF EXAM: 05/22/2022 COMPARISON: 05/20/2022 CT brain HISTORY: Visual disturbance, right sided weakness. CONTRAST: Performed utilizing 11 mL intravenous Gadavist gadolinium contrast. TECHNIQUE: Multiplanar, multiecho imaging on a 3.0 Iza magnet is performed through the brain. Stud y is performed within 24 hours of arrival to the hospital. The craniovertebral junction is normal. The pituitary is normal. Diffusion-weighted imaging is performed. Hyperintensities within the inferior medial temporal lobe i n the periventricular region and this extends into the inferior thalamus and medial periventricular r egion of the left occipital lobe. Findings are compatible with acute ischemic change. Additional scattered periventricular white matter ischemic type changes on T2 and inversion recovery weighted sequences. Following contrast, no abnormal enhancement is evident. These findings are nonspe cific although microvascular ischemic changes favored. Differential diagnosis could include vasculiti s, multiple sclerosis, Lyme disease. Ventricles and sulci are prominent for the patient age. No mass effect on the left lateral ventricle is evident. No temporal horn dilatation is evident. IMPRESSIONS: 1. Acute ischemic type changes within the medial left temporal lobe in the periventricular region adj acent to the lateral ventricle extending into the inferior left thalamus. 2. Moderately extensive additional chronic appearing periventricular white matter ischemic type duckworth es
--- NOTE | 2022-05-22 13:13 | CA ---
Transthoracic Echo Report Name: Kimo Birmingham Age: 67 Gender: M : 1955 Exam Date: 05/22/2022 11:30 Exam Location: [facility] Ht (in): 66 Wt (lb): 230 Ordering Physician: Raimundo Smith MD Attending/Referring Phys: [id number], Luis Rehabilitation Coordinator Ofelia Palumbo, [facility] Procedure CPT: Indications: I63.9 cerebral infarction Cardiac Hx: stroke Technical Quality: Poor Contrast 1: Lumason Total Dose (mL): 5 Contrast 2: Total Dose (mL): MEASUREMENTS (Male / Female) Normal Values 2D ECHO LV Diastolic Diameter PLAX 3.9 cm 4.2 - 5.9 / 3.9 - 5.3 cm LV Systolic Diameter PLAX 3.1 cm IVS Diastolic Thickness 1.6 cm 0.6 - 1.0 / 0.6 - 0.9 cm LVPW Diastolic Thickness 1.6 cm 0.6 - 1.0 / 0.6 - 0.9 cm LV Relative Wall Thickness 0.8 RV Internal Dim ED PLAX 4.0 cm LA Systolic Diameter LX 3.8 cm 3.0 - 4.0 / 2.7 - 3.8 cm LA Volume 38.0 cm??? 18 - 58 / 22 - 52 cm??? M-MODE Aortic Root Diameter MM 3.2 cm MV E Point Septal Separation 0.8 cm AV Cusp Separation MM 2.0 cm DOPPLER AV Peak Velocity 104.2 cm/s AV Peak Gradient 4.3 mmHg MV Area PHT 2.4 cm??? Mitral E Point Velocity 42.2 cm/s Mitral A Point Velocity 81.0 cm/s Mitral E to A Ratio 0.5 MV Deceleration Time 309.8 ms FINDINGS Left Ventricle Left ventricular ejection fraction is estimated at 25-30 %. Left ventricular cavity size normal. Moderate concentric left ventricular hypertrophy. Apical filling defect suggestive of thrombus appears somewhat organized does not seem acute Right Ventricle Severe right ventricular dilatation. Unable to estimate the right ventricular systolic pressure. Right Atrium Normal right atrial size. Left Atrium Normal left atrial size. No evidence for an atrial septal defect. Mitral Valve Mitral valve thickened. Mitral annular calcification. Aortic Valve Diffuse thickening (sclerosis) of the aortic valve cusps without reduced excursion. No aortic valve stenosis or regurgitation. Tricuspid Valve Structurally normal tricuspid valve. Pulmonic Valve Structurally normal pulmonic valve. Pericardium Normal pericardium. No pericardial effusion. Aorta Normal size aortic root and proximal ascending aorta. CONCLUSIONS Ischemic cardiomyopathy with severe hypokinesia involving the anteroapical septal portion with estimated ejection fraction of about 30%. There is an apical filling defect suggestive of thrombus appears organized probably not acute. Mitral annular calcification and aortic sclerosis without restriction. No pericardial effusion Doppler exam is somewhat suboptimal. Spoke to Dr. Smith reviewed the CAT scan report no intracranial bleed, advised Eliquis 5 mg twice a day not knowing the duration of thrombus and also to seek neurology consult as soon as possible, he feels there is a concern about recent CVA. MRI report is pending Previewed by: Dr. Jones Reddy MD (Electronically Signed) Final Date: 22 May 2022 13:12
--- NOTE | 2022-05-23 15:40 | HP ---
HISTORY AND PHYSICAL CHIEF COMPLAINTS: Weakness and numbness of the right side of the body. HISTORY OF PRESENT ILLNESS: This 67-year-old gentleman with a past medical history of hypertension, diabetes mellitus, being followed by Dr. Raimundo Smith in the outpatient setting, was not feeling well. About 2 days ago the patient had generalized weakness. Patient came to [facility] and was subsequently discharged home. An outpatient MRI showed evidence of left temporal stroke and 2D echo was also ordered which showed a possible left apical thrombus. The patient came to the ER again and was admitted for further evaluation and treatment. There is no history of any fever, rigor or chills at this time. PAST MEDICAL HISTORY: Reviewed. It includes diabetes mellitus, hypertension. HOME MEDICATIONS: Reviewed. They include Eliquis. Rest of the medications and doses are reviewed. ALLERGIES: LIPITOR. FAMILY HISTORY: No history of heart disease or strokes in the family. SOCIAL HISTORY: No history of smoking or alcohol. REVIEW OF SYSTEMS: Fourteen-point review of systems negative except as mentioned earlier. PHYSICAL EXAMINATION: Pulse is 81, blood pressure 161/83, respiration 18. HEENT: Conjunctivae normal. NECK: No jugular venous distention. CARDIOVASCULAR: S1, S2 muffled. RESPIRATION: Breath sounds diminished at the bases. No rhonchi. No crackles. ABDOMEN: Soft, nontender. LEGS: No edema. No swelling. NERVOUS SYSTEM: Higher functions as mentioned earlier. Moves all 4 limbs. Mild diffuse weakness. LYMPHATICS: No lymph node palpable in neck, axillae or groin. SKIN: No ulcer, rash, bleeding. JOINTS: No active deforming arthropathy. LABS: Troponins are noted; 0.036. Other labs are noted. ASSESSMENT: 1. Acute left medial temporal and periventricular stroke extending to the inferior left thalamus. 2. Left ventricular apical thrombus. 3. Troponin 0.036. 4. Hypertension. 5. Diabetes mellitus. 6. Multiple medical issues. RECOMMENDATIONS AND DISCUSSION: In this 67-year-old gentleman who presented with multiple complex medical issues, we will monitor the patient closely. Obtain cardiology and neurology evaluations. Patient was started on apixaban. Otherwise, PT/OT evaluation. The patient is also on antiplatelets at this time. Prognosis is guarded because of multiple complex medical issues. Further recommendations to follow. I would also recommend ultrasound of the neck to complete the workup. See orders for further details. Prognosis guarded. Discussed with the patient and family at length. MMODL / IJN: [id number] /
== END | disposition home or self-care (01) ==
LOC: RADECHMAIN 11:23
PROVIDERS: ATTEND Family Medicine
DX: I63.9 Cerebral infarction, unspecified (principal)
CPT/HCPCS: 70553; C8929; Q9950; A9585; 93306

== ENCOUNTER → 2022-09-09 | Outpatient (CLI) | payer MEDICARE ==
[2022-09-09 12:35] VITALS: BP 109/70; PULSE 70; RESP 16; TEMP 98.2
--- NOTE | 2022-09-09 13:30 | P.GSHP ---
History of Present Illness H&P Date: 09/09/22 Kimo is a 67 year old white male seen in consultation for Dr. Raimundo Smith regarding a mass in his left breast noted 4 months ago. He does not note anything in his right breast. The lump is not painful. He is not complaining of any nipple discharge or skin changes. He has not had any imaging performed. It has slightly increased in size since he noted it. It is not complaining of any testicular lumps or masses. 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 Social History: nicotine: none alcohol: 1/2 cup wine occasional drugs: none - Constitutional Constitutional: Denies chills, Denies fever - EENT Eyes: bilateral as per HPI Ears: deny: decreased hearing, tinnitus Ears, nose, mouth and throat: Denies headache, Denies sore throat - Breasts Breasts: bilateral: as per HPI - Cardiovascular Cardiovascular: Reports as per HPI - Respiratory Respiratory: Reports cough - Gastrointestinal Gastrointestinal: Reports constipation - Genitourinary (Male) Genitourinary: Reports as per HPI - Musculoskeletal Musculoskeletal: Denies myalgias - Integumentary Integumentary: Denies pruritus, Denies rash - Neurological Comment: CVA Neurological: Denies numbness, Denies weakness - Psychiatric Psychiatric: Denies anxiety, Denies depression - Endocrine Endocrine: Reports fatigue, Denies weight change - Hematologic/Lymphatic Comment: patient on eliquis - Allergic/Immunologic Allergic/Immunologic: Reports seasonal allergies Past Medical History Past Medical History: Diabetes Mellitus, Hypertension, Prostate Disorder History of Any Multi-Drug Resistant Organisms: None Reported Past Surgical History: Heart Catheterization, Prostate Surgery Past Anesthesia/Blood Transfusion Reactions: No Reported Reaction Past Psychological History: No Psychological Hx Reported Smoking Status: Never smoker Past Alcohol Use History: None Reported Past Drug Use History: None Reported Medications and Allergies Home Medications Medication Instructions Recorded Confirmed Type Dulaglutide [Trulicity] 1.5 mg SQ TH 05/20/22 09/09/22 History Furosemide [Lasix] 40 mg PO DAILY 05/20/22 09/09/22 History Rosuvastatin [Crestor] 10 mg PO DAILY 05/20/22 09/09/22 History Sacubitril/Valsartan [Entresto 24 1 tab PO BID-W/MEALS 05/20/22 09/09/22 History mg-26 mg Tablet] Spironolactone [Aldactone] 25 mg PO PC-LUNCH 05/20/22 09/09/22 History carvediloL [Coreg] 3.125 mg PO BID-W/MEALS 05/20/22 09/09/22 History metFORMIN HCL 1,000 mg PO BID-W/MEALS 05/20/22 09/09/22 History Acetaminophen Tab [Tylenol] 650 mg PO Q6HR PRN tab 05/25/22 09/09/22 Rx Apixaban [Eliquis] 5 mg PO BID #0 05/25/22 09/09/22 Rx Aspirin 81 mg PO DAILY 30 Days #30 tab 05/25/22 09/09/22 Rx Allergies Allergy/AdvReac Type Severity Reaction Status Date / Time atorvastatin [From Lipitor] Allergy Rash/Hives Verified 09/09/22 12:29 Surgical - Exam Vital Signs Temp Pulse Resp BP Pulse Ox 98.2 F 70 16 109/70 100 09/09/22 12:31 09/09/22 12:31 09/09/22 12:31 09/09/22 12:31 09/09/22 12:31 BMI: 35.5 - General no distress - Eyes normal ocular movement - ENT no hearing loss - Neck trachea midline - Respiratory normal respiratory effort - Cardiovascular Heart Sounds: normal: S1, S2 - Abdomen Abdomen: soft, non tender, no guarding, no rigid, no rebound - Integumentary normal turgor - Neurologic no disoriented, no combative - Musculoskeletal normal gait - Psychiatric oriented to time, oriented to person, oriented to place, speech is normal, memory intact Breast Exam: Inspection: No skin changes of the breast Palpation: Right breast: Multi-positional exam fibrocystic changes, probable gynecomastia. 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 Raimundo Smith
== END | disposition home or self-care (01) ==
LOC: WWCWWP 12:00
PROVIDERS: ATTEND Surgery
DX: Z53.9 Procedure and treatment not carried out, unspecified reason (principal)

== ENCOUNTER → 2022-09-10 | Outpatient (CLI) | payer MEDICARE ==
--- NOTE | 2022-09-10 11:01 | MM ---
Reason for Exam: Clinical finding. Indicated Problems: Lump or thickening of the left side. Patient History: Paternal aunt had breast cancer. Paternal aunt had breast cancer. Sister had breast cancer. Tissue Density: There are scattered fibroglandular densities. Findings: Analyzed By CAD. Bilateral subareolar flame-shaped densities are noted, left larger than right. No suspicious microcalcification or other discrete abnormality is seen. Palpable marker placed adjacent to the left nipple. Overall Assessment: Incomplete: need additional imaging evaluation, BI-RAD 0 Management: Diagnostic Breast Ultrasound of the left breast. Electronically signed and approved by: Sonia Dalton M.D. Radiologist
--- NOTE | 2022-09-10 11:24 | USB ---
Patient History: Paternal aunt had breast cancer. Paternal aunt had breast cancer. Sister had breast cancer. Technique: Method: Targeted. Findings: The axilla of both breasts and the retroareolar of both breasts were scanned. Bilateral subareolar and periareolar breast ultrasounds are performed. Particular attention to the palpable site just along the outer aspect of the left nipple. Scanning shows bilateral gynecomastia, left greater than right. The gynecomastia spans up to 4 cm on the left and 2.8 cm on the right. No other solid or cystic lesion. Overall Assessment: Benign, BI-RAD 2 Management: Clinical Management of both breasts in 1 year. Further clinical management as to possible causes of patient's bilateral mild to moderate gynecomastia, left greater than right. Patient's palpable site on the left corresponds to this gynecomastia. The patient can continue self breast exams. If any enlarging abnormality is detected, the patient can be rescanned. Results were given to the patient verbally at the time of exam. Electronically signed and approved by: Sonia Dalton M.D. Radiologist
== END | disposition home or self-care (01) ==
LOC: RADMAMWWP 10:06
PROVIDERS: ATTEND Surgery
DX: N63.20 Unspecified lump in the left breast, unspecified quadrant (principal)
CPT/HCPCS: 77066; 76642; G0279; 77062

== ENCOUNTER → 2022-09-25 | Outpatient (CLI) | payer MEDICARE ==
[2022-09-25 19:40] LABS: ALT 19 U/L (10-49); AST 14 U/L (14-35); African American GFR (CKD) 38.6 (60.0-200.0); Albumin/Globulin Ratio 1.48 (1.60-3.17); Alkaline Phosphatase 79 U/L (41-126); BUN/Creat Ratio 30.35 Ratio (12.00-20.00); Blood Urea Nitrogen 60.7 mg/dL (9.0-27.0); Calcium 9.1 mg/dL (8.7-10.3); Carbon Dioxide 22.7 mmol/L (20.0-27.5); Chloride 100 mmol/L (96-109); Chol/HDL Ratio 3.16 Ratio; Globulin 2.7 g/dL (1.6-3.3); Glucose 269 mg/dL (70-110); Non-African American GFR(CKD) 33.3 (60.0-200.0); Potassium 5.3 mmol/L (3.5-5.5); Sodium 135 mmol/L (135-145); Total Protein 6.7 g/dL (6.2-8.2)
== END | disposition home or self-care (01) ==
LOC: LABWHC1 11:36
PROVIDERS: ATTEND Internal Medicine Clinical Cardiac Electrophysiology
DX: I25.10 Atherosclerotic heart disease of native coronary artery without angina pectoris (principal); I50.9 Heart failure, unspecified; E78.5 Hyperlipidemia, unspecified; I42.9 Cardiomyopathy, unspecified
CPT/HCPCS: 36415; 80053; 80061; 84443

== ENCOUNTER → 2023-02-26 | Outpatient (CLI) | payer MEDICARE ==
[2023-02-26 13:42] LABS: ALT 23 U/L (4-49); AST 23 U/L (17-59); African American GFR (CKD) 36 (>60 ml/min/1.73 sqM); Albumin/Globulin Ratio 1.3; Alkaline Phosphatase 108 U/L (38-126); Anion Gap 15 mmol/L; Blood Urea Nitrogen 51 mg/dL (9-20); Calcium 9.2 mg/dL (8.4-10.2); Carbon Dioxide 19 mmol/L (22-30); Chloride 103 mmol/L (98-107); Globulin 3.1 g/dL; Glucose 201 mg/dL (74-99); Non-African American GFR(CKD) 31 (>60 ml/min/1.73 sqM); Potassium 4.9 mmol/L (3.5-5.1); Sodium 137 mmol/L (137-145); Total Protein 7.1 g/dL (6.3-8.2)
[2023-02-27 07:32] LABS: Total Protein 24 Hour,Urine 5043.8 mg/24Hr (0.0-165.0); Total Volume 24 Hour,Urine 1875 mL
== END | disposition home or self-care (01) ==
LOC: RADUSWWP 11:59
PROVIDERS: ATTEND Family Medicine
DX: N18.30 Chronic kidney disease, stage 3 unspecified (principal)
CPT/HCPCS: 80053; 81050; 82575; 83970; 84156

== ENCOUNTER 2023-04-13 05:52 | Day surgery (SDC) | payer MEDICARE ==
[2023-04-13] MEDS ORDERED: SODIUM CHLORIDE 0.9% 1,000 ML in EMPTY BAG 1 BAG IV SCH (05:58)
[2023-04-13] MEDS ORDERED: ALPRAZolam 0.5 MG TAB PO PRN (05:58)
[2023-04-13] MEDS ORDERED: ALPRAZolam 0.25 MG TAB PO PRN (05:58)
[2023-04-13] MEDS ORDERED: NITROGLYCERIN SL TABS 0.4 MG TAB SUBLINGUAL PRN (05:58)
[2023-04-13] MEDS ORDERED: SODIUM CHLORIDE 0.9% 1,000 ML IV ONE (06:14)
[2023-04-13 06:34] VITALS: RESP 16; TEMP 98.2
[2023-04-13 06:49] LABS: Glucose,Whole Blood 272 mg/dL (70-110)
[2023-04-13 06:56] LABS: African American GFR (CKD) 39 (>60 ml/min/1.73 sqM); Anion Gap 11 mmol/L; Blood Urea Nitrogen 45 mg/dL (9-20); Calcium 9.3 mg/dL (8.4-10.2); Carbon Dioxide 21 mmol/L (22-30); Chloride 105 mmol/L (98-107); Glucose 272 mg/dL (74-99); Non-African American GFR(CKD) 33 (>60 ml/min/1.73 sqM); Potassium 4.1 mmol/L (3.5-5.1); Sodium 137 mmol/L (137-145)
[2023-04-13 06:59] LABS: Basophils # (A) 0.1 k/uL (0-0.2); Basophils % (A) 1 %; Eosinophils # (A) 0.7 k/uL (0-0.7); Eosinophils % (A) 6 %; HCT 42.6 % (39.0-53.0); HGB 14.2 gm/dL (13.0-17.5); Lymphocytes # (A) 2.5 k/uL (1.0-4.8); Lymphocytes % (A) 24 %; MCH 31.4 pg (25.0-35.0); MCHC 33.4 g/dL (31.0-37.0); MCV 94.1 fL (80.0-100.0); Mean Platelet Volume 6.9; Monocytes # (A) 0.7 k/uL (0-1.0); Monocytes % (A) 7 %; Neutrophils # (A) 6.1 k/uL (1.3-7.7); Neutrophils % (A) 60 %; Platelet Count 224 k/uL (150-450); RBC 4.52 m/uL (4.30-5.90); RDW 12.1 % (11.5-15.5); WBC 10.2 k/uL (3.8-10.6)
[2023-04-13] MEDS ORDERED: ASPIRIN 325 MG TAB PO ONE (07:00)
[2023-04-13] MEDS ORDERED: VERAPAMIL 2.5 MG/ML 2 ML AMP ONE (07:14)
[2023-04-13] MEDS ORDERED: INSULIN ASPART (NovoLOG) 100 UNIT/ML VIAL SQ SCH (07:30)
[2023-04-13] MEDS ORDERED: HEPARIN SODIUM 1,000 UN/ML (10ML VL) ONE (08:08)
[2023-04-13] MEDS ORDERED: MIDAZOLAM 2 MG/2 ML VIAL IV ONE (08:15)
[2023-04-13] MEDS ORDERED: LIDOCAINE 1% INJ 10MG/ML (5 ML VIAL-PF) SQ ONE (08:17)
[2023-04-13] MEDS ORDERED: VERAPAMIL SYRINGE (5 MG/10 ML) INTRAARTER ONE (08:20)
[2023-04-13] MEDS ORDERED: HEPARIN SODIUM 1,000 UN/ML (10ML VL) IV ONE (08:20)
[2023-04-13] MEDS ORDERED: IOPAMIDOL-370 100ML BTL INJ ONE (08:32)
[2023-04-13] MEDS ORDERED: RX INFO: IV CONTRAST WAS GIVEN 1 EACH MISC MISCELLANE PRN (08:35)
--- NOTE | 2023-04-13 08:40 | P.PCN ---
Date of Procedure: 04/13/23 Operative Findings: CARDIAC CATHETERIZATION PERFORMING PHYSICIAN: Khai Sin MD, RPVI PROCEDURE PERFORMED: 1. Selective right and left coronary angiogram 2. Ultrasound-guided access of the right radial artery INDICATION: Cardiomyopathy COMPLICATION: None APPROACH: Right radial artery LEVEL OF SEDATION: Moderate with a sedation length of 16 minutes PROCEDURE DESCRIPTION: After obtaining an informed consent, the patient was brought to cardiac laborer tin can. Local anesthesia was performed using lidocaine subcutaneously. The right radial artery was cannulated using Seldinger technique, the guidewire passed easily, following that we advanced a 5-Syrian sheath dilator assembly, the wire and dilator were removed and sheath was flushed. Following that, 2 mg of verapamil along with 5000 unit heparin were given. Selective right and left coronary angiogram using a 6-Syrian JR4 and JL 3.5 catheters. The procedure was completed there was no complication. SELECTIVE CORONARY ANGIOGRAM: The right coronary artery: Large-caliber vessel and a dominant vessel. The RCA is chronically occluded on long segment extends from the proximal portion all the way to the distal portion. Left main: Appeared to be angiographically normal. Bifurcates into an ulcer excellent LAD The left circumflex: Large caliber vessel codominant vessel. The LCx has mild diffuse disease only. Approximately gives rises into an OM which appeared to be angiographically normal and second OM which appeared to be angiographically normal and distally bifurcates into PDA and PLV branches both appeared to be angiographically normal The left anterior descending artery: The LAD is occluded in the midportion by the bifurcation of a large diagonal branch with a flush occlusion. The LAD fills by ipsilateral collateral from the left coronary system. CONCLUSION: 1. Chronic total occlusion of the right coronary artery which fills by contralateral collaterals 2. Chronic total occlusion of the mid LAD by the bifurcation of the large diagonal branch with flush occlusion. The LAD fills by ipsilateral collateral POSTPROCEDURE MANAGEMENT: Giving the above anatomy and the cardiomyopathy and knowing that the patient has viable myocardium I would suggest that the patient would benefit from coronary artery bypass grafting with at least off-pump ARAUZ to LAD.
[2023-04-13] MEDS ORDERED: SODIUM CHLORIDE 0.9% 1,000 ML IV SCH (08:45)
[2023-04-13 08:50] LABS: Glucose,Whole Blood 245 mg/dL (70-110)
[2023-04-13 11:08] VITALS: PULSE 62
[2023-04-13 11:47] VITALS: BP 148/72
== END 2023-04-13 12:20 | disposition home or self-care (01) ==
LOC: CATHCVL 05:52
PROVIDERS: ATTEND Internal Medicine Interventional Cardiology
DX: I25.10 Atherosclerotic heart disease of native coronary artery without angina pectoris (principal); I25.82 Chronic total occlusion of coronary artery; I42.0 Dilated cardiomyopathy; I25.2 Old myocardial infarction; I11.0 Hypertensive heart disease with heart failure; I50.20 Unspecified systolic (congestive) heart failure; E11.9 Type 2 diabetes mellitus without complications; E78.5 Hyperlipidemia, unspecified; Z79.01 Long term (current) use of anticoagulants; Z79.82 Long term (current) use of aspirin; Z79.85 Long-term (current) use of injectable non-insulin antidiabetic drugs; Z79.899 Other long term (current) drug therapy; Z88.8 Allergy status to other drugs, medicaments and biological substances
CPT/HCPCS: 93454; 99152; 76937; 80048; 85025; C1769; C1894; J2250; J2001; J1644; Q9967

== ENCOUNTER → 2023-05-04 | Outpatient (CLI) | payer MEDICARE ==
--- NOTE | 2023-05-04 09:52 | XR ---
EXAMINATION TYPE: XR chest 2V DATE OF EXAM: 05/04/2023 COMPARISON: 05/22/2022 TECHNIQUE: PA and lateral views submitted. HISTORY: Preop FINDINGS: The lungs are clear and there is no pneumothorax, pleural effusion, or focal pneumonia. Heart size normal and no overt failure. Osseous structures demonstrate hypertrophic and degenerative changes of the spine. Atherosclerotic change aorta. Hyperinflation suggests COPD. Arthropathy of the AC joints. Prominent mediastinum. IMPRESSION: 1. No acute process. Prominent mediastinum. Recommend CT of the chest exclude underlying adenopathy\m ass. 2. COPD.
[2023-05-04 10:31] LABS: Partial Thromboplastin Time 23.4 sec (22.0-30.0); Prothrombin Time 10.9 sec (9.0-12.0)
--- NOTE | 2023-05-04 12:36 | US ---
EXAMINATION TYPE: US carotid duplex BILAT DATE OF EXAM: 05/04/2023 COMPARISON: None CLINICAL INDICATION: Male, 68 years old with history of OPEN HEART; PreOp TECHNIQUE: Carotid duplex ultrasound examination. Indirect Doppler criteria was utilized. FINDINGS: EXAM MEASUREMENTS: RIGHT: Peak Systolic Velocity (PSV) cm/sec ----- Right CCA: 105.6 ----- Right ICA: 77.6 ----- Right ECA: 99.6 ICA/CCA ratio: 0.7 RIGHT: End Diastole cm/sec ----- Right CCA: 20.2 ----- Right ICA: 27.0 ----- Right ECA: 0.0 LEFT: Peak Systolic Velocity (PSV) cm/sec ----- Left CCA: 88.6 ----- Left ICA: 77.5 ----- Left ECA: 128.6 ICA/CCA ratio: 0.9 LEFT: End Diastole cm/sec ----- Left CCA: 18.2 ----- Left ICA: 22.0 ----- Left ECA: 0.0 VERTEBRALS (direction of flow): Right Vertebral: Antegrade Left Vertebral: Antegrade Rhythm: Normal COMMUNITY RELATIONS DIRECTOR NOTES: Bilateral wall thickening. No plaque visualized. Tortuous left ICA noted. No el evated velocities. No significant stenosis. IMPRESSION: Less than 50% stenosis of the bilateral carotid bifurcation. Criteria for Assigning % of Stenosis / Diameter reduction (Estimation based on the indirect measurements of the internal carotid artery velocities (ICA PSV). 1. Normal (no stenosis)=ICA PSV < 125 cm/s: ratio < 2.0: ICA EDV<40 cm/s. 2. Less than 50% stenosis=ICA PSV < 125 cm/s: ratio < 2.0: ICA EDV<40 cm/s. 3. 50 to 69% stenosis=ICA PSV of 125 to 230 cm/s: ration 2.0 ? 4.0: ICA EDV 40-100 cm/s. 4. Greater than 70% stenosis to near occlusion= ICA PSV > 230 cm/s: ratio > 4.0: ICA EDV > 100 cm/s. 5. Near occlusion= ICA PSV velocities may be low or undetectable: variable ratio and ICA EDV. 6. Total occlusion=unable to detect flow.
--- NOTE | 2023-05-04 12:40 | US ---
EXAMINATION TYPE: US vein mapping BILAT DATE OF EXAM: 05/04/2023 11:35 AM COMPARISON: NONE CLINICAL INDICATION: Male, 68 years old with history of OPEN HEART; PreOp SIDE PERFORMED: Bilateral TECHNIQUE: Lower extremity saphenous vein is examined and measured utilizing real time linear array sonography. Patient History: Smoker: N Heart Disease: Y Hypertension: Y DUPLEX FINDINGS: Greater Saphenous: Color flow seen Measurements in mm: Right Greater Saphenous: Groin: 5.9 X 5.4 mm High Thigh: 4.4 X 4.2 mm Mid Thigh: 4.7 X 4.2 mm Above Knee: 4.8 X 5.0 mm Knee: 4.9 X 4.6 mm Below Knee: 4.6 X 3.8 mm Mid Calf: 5.5 X 4.6 mm At Ankle: 4.6 X 3.8 mm Left Greater Saphenous: Groin: 5.6 X 5.7 mm High Thigh: 5.3 X 4.6 mm Mid Thigh: 5.8 X 4.9 mm Above Knee: 5.9 X 4.2 mm Knee: 4.7 X 3.7 mm Below Knee: 4.7 X 3.5 mm Mid Calf: 4.1 X 3.1 mm At Ankle: 3.8 X 3.6 mm IMPRESSION: 1. Bilateral GSV measurements listed above. 2. Performing surgeon to determine viability as conduit.
--- NOTE | 2023-05-04 12:51 | CT ---
EXAMINATION TYPE: CT chest wo con DATE OF EXAM: 05/04/2023 COMPARISON: None HISTORY: pre-op open heart CT DLP: 561.2 mGycm. Automated Exposure Control for Dose Reduction was Utilized. TECHNIQUE: CT scan of the thorax is performed without IV contrast. FINDINGS: LUNGS: The lungs are grossly clear, there is no concerning parenchymal mass or nodule identified. T here is no pleural effusion or pneumothorax seen. The tracheobronchial tree is patent. There is a 6 mm subpleural nodule in the left upper lobe and 4 mm nodules in the left lower lobe has benign appear ance. Mild peribronchial wall thickening seen. Along the lateral margin of the trachea on coronal lori ge 67 mild. Thickening. Slight nodularity along the left mainstem bronchus MEDIASTINUM: Lack of IV contrast is noted to limit evaluation for mediastinal and especially hilar ad enopathy. There are no definitive greater than 1 cm hilar or mediastinal lymph nodes. No cardiomega ly or pericardial effusion is seen. Ascending aorta measures 5 cm compatible with mild aneurysmal dil ation. Mild atherosclerotic change of aorta. Moderate atherosclerotic change in coronary arteries. Th ere is pericardial mild lipomatosis. Small pericardial effusion. OTHER: Hypertrophic and degenerative changes of the spine. Changes of gynecomastia noted. There is a left adrenal nodule measuring 1.8 cm and a 7 mm right adrenal nodule. Most likely related to incident al adrenal adenoma. IMPRESSION: 1. Mild aneurysmal dilation ascending aorta measuring 4.1 cm. 2. Moderate coronary artery calcification. 3. COPD with peribronchial thickening to be associated with a chronic bronchitis or bronchiectasis. 4. There are 6 mm or less benign-appearing nodules within the lungs which could be followed with six- month basis. 5. There is localized mucosal thickening along the lateral right tracheal wall and superior margin of the left mainstem bronchus. May represent retained secretions. Could not exclude a subtle mucosal le nj. Correlate with bronchoscopy as clinically warranted.
--- NOTE | 2023-05-04 12:55 | US ---
EXAMINATION TYPE: US arterial LE single level DATE OF EXAM: 05/04/2023 11:47 AM CLINICAL INDICATION: Male, 68 years old with history of OPEN HEART; History of: Smoker: N Hypertension: Y Diabetic: Y Hyperlipidemia: N TIA/CVA: Y Doppler Waveforms: Right: Multiphasic Left: Multiphasic Right Brachial Pressure: 127 Left Brachial Pressure: 133 Ankle-Brachial Indices: Right: 1.09 Left: 1.44 Toe Brachial Indices: Right: 0.86 Left: 0.71 IMPRESSION: 1. Normal bilateral MARIBEL and TBI indices.
[2023-05-04 16:32] LABS: Appearance,Urine Clear (Clear); Bilirubin,Urine Negative (Negative); Blood,Urine Small (Negative); Color,Urine Yellow (Yellow); Ketones,Urine Negative (Negative); Nitrite,Urine Negative (Negative); PH, Urine 5.5; Specific Gravity,Urine 1.017 (1.001-1.030)
[2023-05-04 16:37] LABS: HCT 40.9 % (39.6-50.0); MCH 31.7 pg (27.0-32.0); MCHC 34.2 d/dL (32.0-37.0); MCV 92.7 FL (80.0-97.0); Mean Platelet Volume 9.1 FL (9.5-12.2); NRBC Per 100 WBC 0 X 10*3/uL (0.00-0.01); Platelet Count 212 X 10*3/uL (140-440); RBC 4.41 X 10*6/uL (4.40-5.60); RDW 11.9 % (11.5-14.5); WBC 9.47 X 10*3/uL (4.50-10.00)
[2023-05-04 16:51] LABS: Bacteria,Urine None Seen (None Seen)
[2023-05-04 18:00] LABS: Hepatitis A Antibody IgM Nonreactive; Hepatitis B Core IgM Nonreactive; Hepatitis B Surface Antigen Nonreactive; Hepatitis C IgG Antibody Nonreactive
[2023-05-04 22:15] LABS: ALT 22 U/L (10-49); AST 20 U/L (14-35); Albumin 4.2 d/dL (3.8-4.9); Albumin/Globulin Ratio 1.56 Ratio (1.60-3.17); Alkaline Phosphatase 64 U/L (41-126); BUN/Creat Ratio 22.09 Ratio (12.00-20.00); Blood Urea Nitrogen 48.6 mg/dL (9.0-27.0); Carbon Dioxide 21.4 mmol/L (21.6-31.8); Chloride 102 mmol/L (96-109); Chol/HDL Ratio 3.03 Ratio; Globulin 2.7 d/dL (1.6-3.3); Glucose 244 mg/dL (70-110); LDL Cholesterol,Calculated 44.4 mg/dL (0.0-131.0); Potassium 4.8 mmol/L (3.5-5.5); Sodium 139 mmol/L (135-145); Total Bilirubin 1.1 mg/dL (0.3-1.2); Total Protein 6.9 d/dL (6.2-8.2)
== END | disposition home or self-care (01) ==
LOC: LABWHC1 08:54
PROVIDERS: ATTEND Thoracic Surgery (Cardiothoracic Vascular Surgery)
DX: Z01.818 Encounter for other preprocedural examination (principal); I11.9 Hypertensive heart disease without heart failure; I25.10 Atherosclerotic heart disease of native coronary artery without angina pectoris; I71.21 Aneurysm of the ascending aorta, without rupture; I25.84 Coronary atherosclerosis due to calcified coronary lesion; J44.9 Chronic obstructive pulmonary disease, unspecified; E11.9 Type 2 diabetes mellitus without complications; I65.23 Occlusion and stenosis of bilateral carotid arteries; R91.8 Other nonspecific abnormal finding of lung field; Z86.73 Personal history of transient ischemic attack (TIA), and cerebral infarction without residual deficits
CPT/HCPCS: 36415; 71046; 71250; 80053; 80061; 80074; 81001; 83036; 83735; 84443; 85027; 85610; 85730; 87070; 87086; 93005; 93880; 93922; 93970; 94150

== ENCOUNTER → 2023-05-04 | Outpatient (CLI) | payer MEDICARE ==
--- NOTE | 2023-05-04 17:31 | CA ---
Transthoracic Echo Report Name: Kimo Birmingham Age: 68 Gender: M : 1955 Exam Date: 05/04/2023 13:07 Exam Location: [facility] Ht (in): 65 Wt (lb): 228 Ordering Physician: Jaime Noland MD Attending/Referring Phys: Event Marketing Representative Arielle Fritz RDCS Procedure CPT: Indications: Z00.00 Cardiac Hx: Technical Quality: Technically difficult study Contrast 1: Lumason Total Dose (mL): 4 Contrast 2: Total Dose (mL): MEASUREMENTS (Male / Female) Normal Values 2D ECHO LV Diastolic Diameter PLAX 3.1 cm 4.2 - 5.9 / 3.9 - 5.3 cm LV Systolic Diameter PLAX 2.5 cm IVS Diastolic Thickness 1.9 cm 0.6 - 1.0 / 0.6 - 0.9 cm LVPW Diastolic Thickness 1.6 cm 0.6 - 1.0 / 0.6 - 0.9 cm LV Relative Wall Thickness 1.1 RV Internal Dim ED PLAX 3.3 cm LVOT Diameter 2.0 cm LA Volume 40.6 cm??? 18 - 58 / 22 - 52 cm??? M-MODE Aortic Root Diameter MM 3.2 cm LA Systolic Diameter MM 4.5 cm LA Ao Ratio MM 1.4 AV Cusp Separation MM 1.9 cm DOPPLER AV Peak Velocity 136.8 cm/s AV Peak Gradient 7.5 mmHg AV Mean Velocity 96.3 cm/s AV Mean Gradient 4.2 mmHg AV Velocity Time Integral 27.1 cm LVOT Peak Velocity 98.6 cm/s LVOT Peak Gradient 3.9 mmHg LVOT Velocity Time Integral 25.0 cm LVOT Stroke Volume 81.3 cm??? LVOT Stroke Volume Index 38.9 ml/m??? LVOT Cardiac Index 2594.6 cm???/min???m??? AV Area Cont Eq vti 3.0 cm??? AV Area Cont Eq pk 2.3 cm??? MV Area PHT 2.0 cm??? Mitral E Point Velocity 45.8 cm/s Mitral A Point Velocity 91.8 cm/s Mitral E to A Ratio 0.5 MV Deceleration Time 380.9 ms MV E' Velocity 4.6 cm/s Mitral E to MV E' Ratio 10.0 TR Peak Velocity 186.2 cm/s TR Peak Gradient 13.9 mmHg Right Ventricular Systolic Press 18.9 mmHg FINDINGS Left Ventricle Moderately increased left ventricular wall thickness. [place] hypokinetic. Small left ventricular apical thrombus. Left ventricular ejection fraction is estimated at 40-45 %. Right Ventricle Normal right ventricular size and function. Right ventricular systolic pressure within normal limits. Right Atrium Normal right atrial size. Left Atrium Normal left atrial size. Mitral Valve Structurally normal mitral valve. Mitral valve thickened. Mild mitral regurgitation. Aortic Valve Trileaflet aortic valve. Thickened aortic valve without stenosis. No aortic regurgitation. Tricuspid Valve Structurally normal tricuspid valve. Mild tricuspid regurgitation. Pulmonic Valve Trace pulmonic regurgitation. Pericardium No pericardial effusion. Aorta Normal size aortic root and proximal ascending aorta. CONCLUSIONS Moderate LV systolic dysfunction secondary to prior apical myocardial infarction with an ejection fraction of 40-45%. There is an echo dense lesion in the apex suggestive of an apical thrombus. Mild mitral regurgitation Previewed by: Dr. Arnaldo Fung MD (Electronically Signed) Final Date: 04 May 2023 17:30
== END | disposition home or self-care (01) ==
LOC: RADECHMAIN 12:15
PROVIDERS: ATTEND Thoracic Surgery (Cardiothoracic Vascular Surgery)
DX: Z01.810 Encounter for preprocedural cardiovascular examination (principal); I08.1 Rheumatic disorders of both mitral and tricuspid valves; I21.9 Acute myocardial infarction, unspecified; I25.10 Atherosclerotic heart disease of native coronary artery without angina pectoris
CPT/HCPCS: C8929; Q9950; 93306

== ENCOUNTER 2023-05-13 05:36 | Inpatient (IN) | payer MEDICARE ==
[~2023-05-13 05:36] MED LIST: ALBUMIN HUMAN 25% 50 ML IV ONE; ALBUMIN HUMAN 5% 500 ML IVPB ONE; ASPIRIN 325 MG TAB PO ONE; CALCIUM CHLORIDE 100 MG/ML 10 ML SYRINGE IV ONE; CHLORHEXIDINE GLUCONATE 15 ML CUP MUCOUS MEM ONE; CLEVIDIPINE BUTYRATE 25 MG in EMPTY BAG 1 BAG IV ONE; CRESTOR 40 MG PO SCH; ELECTROLYTE-A SOLUTION 1,000 ML with POTASSIUM CHLORIDE 100 MEQ, MAGNESIUM SULFATE 16 M... IV ONE; ELECTROLYTE-A SOLUTION 1,000 ML with POTASSIUM CHLORIDE 40 MEQ, MAGNESIUM SULFATE 16 ME... IV ONE; HEPARIN SODIUM 1,000 UN/ML (10ML VL) IV ONE; HEPARIN SODIUM,PORCINE (1 ML) 5,000 UNIT in SODIUM CHLORIDE 0.9% 500 ML 500 ML IV ONE; INSULIN REGULAR 100 UNIT in SODIUM CHLORIDE 0.9% 100 ML IV ONE; LACTATED RINGERS 1,000 ML IV ONE; MAGNESIUM SULFATE 16.24 MEQ in EMPTY SYRINGE 1 SYR IV ONE; MANNITOL 25% 12.5 GM/50 ML VIAL IV ONE; METOPROLOL TARTRATE 12.5 MG TAB PO ONE; NITROGLYCERIN SL TABS 0.4 MG TAB SUBLINGUAL ONE; NITROGLYCERIN-D5W PMX 25 MG/250 ML BTL IV ONE; NITROGLYCERIN-D5W PMX 50 MG in DEXTROSE/WATER 1 250ML.BAG IV ONE; NOREPINEPHRINE 4 MG in SODIUM CHLORIDE 0.9% 250 ML IV ONE; PAPAVERINE 360 MG in SODIUM CHLORIDE 0.9% 90 ML IV ONE; PHENYLEPHRINE 10 MG/ML VIAL IV ONE; PHENYLEPHRINE 40 MG in SODIUM CHLORIDE 0.9% 250 ML IV ONE; PROTAMINE SULFATE 10 MG/ML 25 ML VIAL IV ONE; PROTAMINE SULFATE 250 MG in EMPTY BAG 1 BAG IV ONE; SODIUM BICARB 8.4% 50 ML SYR (1 MEQ/ML) IV ONE; SODIUM CHLORIDE 0.9% 1,000 ML IV ONE; TRANEXAMIC ACID 2,000 MG in SODIUM CHLORIDE 0.9% 80 ML IV ONE; ceFAZolin 1,000 MG in SODIUM CHLORIDE 0.9% IRRIGATIO 1,000 ML IRRIGATION ONE; propofoL 1,000 MG/100 ML VIAL IV ONE
[2023-05-13 06:19] LABS: Glucose,Whole Blood 168 mg/dL (70-110)
[2023-05-13] MEDS ORDERED: HEPARIN SODIUM,PORCINE 10,000 UNIT/ML 1 ML VIAL ONE (07:43)
[2023-05-13] MEDS ORDERED: MIDAZOLAM HCL 10 MG/10 ML VIAL ONE (07:43)
[2023-05-13] MEDS ORDERED: SUCCINYLCHOLINE CHLORIDE 200 MG/10 ML VIAL IV ONE (07:43)
[2023-05-13] MEDS ORDERED: PHENYLEPHRINE-0.9% NACL SYG 1,000 MCG/10 ML SYRINGE ONE (07:43)
[2023-05-13] MEDS ORDERED: PROPOFOL 10 MG/ML 20 ML VIAL IV ONE (07:43)
[2023-05-13] MEDS ORDERED: VECURONIUM 10 MG VIAL IV ONE (07:43)
[2023-05-13] MEDS ORDERED: fentaNYL (PF) 50 MCG/ML 50 ML VIAL ONE (07:43)
[2023-05-13] MEDS ORDERED: HEPARIN SODIUM,PORCINE 5,000 UNIT/ML 1 ML VIAL ONE (07:43)
[2023-05-13 08:30] LABS: ABG Base Excess -2.5 mmol/L; ABG Glucose Whole Blood 188 mg/dL (75-99); ABG HCO3 23 mmol/L (21-25); ABG Hematocrit 40 % (34.0-46.0); ABG Ionized Calcium 4.7 mg/dL (4.5-5.3); ABG Lactic Acid Whole Blood 1.2 mmol/L (0.5-1.6); ABG Oxygen Saturation 98.6 % (94-97); ABG PCO2 42 mmHg (35-45); ABG PH 7.35 (7.35-7.45); ABG PO2 147 mmHg (83-108); ABG Potassium Whole Blood 4.3 mmol/L (3.4-4.5); ABG Sodium Whole Blood 139 mmol/L (135-146); ABG TCO2 24 mmol/L (19-24)
[2023-05-13] MEDS ORDERED: SODIUM CHLORIDE 0.9% 500 ML 500 ML with HEPARIN SODIUM,PORCINE (1 ML) 5,000 UNIT IV ONE ×2 (09:07)
[2023-05-13] MEDS ORDERED: PAPAVERINE 360 MG in SODIUM CHLORIDE 0.9% 90 ML IV ONE (09:07)
[2023-05-13] MEDS ORDERED: ceFAZolin 1,000 MG in SODIUM CHLORIDE 0.9% 1,000 ML IRRIGATION ONE (09:07)
--- NOTE | 2023-05-13 09:10 | P.ANPRN ---
Procedure Note - Anesthesia - Invasive Line Right Central Line Time Out Performed: Yes (0721) Date of Procedure: 05/13/23 Time of Procedure: 07:22 Location of Patient: Phase I Preparation: Sterile Prep, Sterile Dressing Central Line Location: Internal Jugular (right ij cordis) Ultrasound Used: Yes Purpose - Visualization and Identification of Vasculature: Yes Needle Guage: 22g Image Stored and Saved: Yes Narrative: Central line placement per sterile protocol utilized. +local +finder +angio +cvp +jwire +uneventful dilation and introduction right IJ Cordis
--- NOTE | 2023-05-13 09:12 | P.ANPRN ---
Procedure Note - Anesthesia - Invasive Line Right Galva Misha Time Out Performed: Yes (821) Date of Procedure: 05/13/23 Time of Procedure: 08:22 Preparation: Sterile Prep, Sterile Dressing Galva Misha Line Location: Internal Jugular (r ij) Ultrasound Used: No Purpose - Visualization and Identification of Vasculature: No Image Stored and Saved: No Narrative: Central line placement per sterile protocol utilized. swan floated in sheath in two attempts. wedge at 53cm. w/d to 48cm.
--- NOTE | 2023-05-13 09:15 | P.ANPRN ---
Procedure Note - Anesthesia - PARVEZ Intraop Pre Bypass PARVEZ Intraop - Anesthesia Indication: CABG Date of Procedure: 05/13/23 Pre-operative Diagnosis: CAD Post-operative Diagnosis: same Surgeon: Jaime Noland Left Ventricle: LVH, small apical clot. Known and shown to surgeon Ejection Fraction: Normal Regional Wall Motion Abnormalities: None Left Ventricle Hypertrophy: Yes R. Ventricle Function: Normal Anatomy: Trileaflet Aortic Stenosis: None Aortic Regurgitation: None Mitral Stenosis: None Mitral Regurgitation: None Tricuspid Stenosis: None Tricuspid Regurgitation: None Pulmonic Stenosis: None Pulmonic Regurgitation: None R. Atrial Dilation: No R. Atrial PFO: No L. Atrial Dilation: No Aortic Dissection: No Aortic Calcification: None Plural Effusion: None
[2023-05-13 09:45] LABS: ABG Base Excess -3.7 mmol/L; ABG Glucose Whole Blood 163 mg/dL (75-99); ABG HCO3 22 mmol/L (21-25); ABG Hematocrit 39 % (34.0-46.0); ABG Ionized Calcium 4.8 mg/dL (4.5-5.3); ABG Lactic Acid Whole Blood 1.2 mmol/L (0.5-1.6); ABG Oxygen Saturation 98.7 % (94-97); ABG PCO2 43 mmHg (35-45); ABG PH 7.32 (7.35-7.45); ABG PO2 141 mmHg (83-108); ABG Potassium Whole Blood 3.9 mmol/L (3.4-4.5); ABG Sodium Whole Blood 139 mmol/L (135-146); ABG TCO2 24 mmol/L (19-24)
[2023-05-13 10:12] LABS: ABG Base Excess -2.9 mmol/L; ABG Glucose Whole Blood 150 mg/dL (75-99); ABG HCO3 23 mmol/L (21-25); ABG Hematocrit 39 % (34.0-46.0); ABG Ionized Calcium 4.8 mg/dL (4.5-5.3); ABG Lactic Acid Whole Blood 1.3 mmol/L (0.5-1.6); ABG Oxygen Saturation 98.8 % (94-97); ABG PCO2 43 mmHg (35-45); ABG PH 7.34 (7.35-7.45); ABG PO2 170 mmHg (83-108); ABG Sodium Whole Blood 140 mmol/L (135-146); ABG TCO2 24 mmol/L (19-24)
[2023-05-13 10:48] LABS: ABG Base Excess -3.3 mmol/L; ABG Glucose Whole Blood 126 mg/dL (75-99); ABG HCO3 22 mmol/L (21-25); ABG Hematocrit 38 % (34.0-46.0); ABG Ionized Calcium 4.7 mg/dL (4.5-5.3); ABG Oxygen Saturation 98.9 % (94-97); ABG PCO2 41 mmHg (35-45); ABG PH 7.34 (7.35-7.45); ABG PO2 172 mmHg (83-108); ABG Sodium Whole Blood 140 mmol/L (135-146); ABG TCO2 24 mmol/L (19-24)
[2023-05-13 11:26] LABS: ABG Base Excess -3.1 mmol/L; ABG Glucose Whole Blood 105 mg/dL (75-99); ABG HCO3 22 mmol/L (21-25); ABG Hematocrit 37 % (34.0-46.0); ABG Ionized Calcium 4.6 mg/dL (4.5-5.3); ABG Oxygen Saturation 98.7 % (94-97); ABG PCO2 37 mmHg (35-45); ABG PH 7.38 (7.35-7.45); ABG PO2 133 mmHg (83-108); ABG Potassium Whole Blood 4.1 mmol/L (3.4-4.5); ABG Sodium Whole Blood 138 mmol/L (135-146); ABG TCO2 23 mmol/L (19-24)
[2023-05-13 11:36] LABS: ABG Lactic Acid Whole Blood 2.1 mmol/L (0.5-1.6)
[2023-05-13 11:37] LABS: ABG Lactic Acid Whole Blood 2.7 mmol/L (0.5-1.6)
--- NOTE | 2023-05-13 11:59 | P.OP ---
Date of Procedure: 05/13/23 Preoperative Diagnosis: 2v CAD Ishchemic cardiomyopathy NICM HTN DM BPH CVA Postoperative Diagnosis: Same Procedure(s) Performed: 1. Off pump coronary artery bypass grafting x 2. Left internal thoracic artery (in-situ) to left anterior descending artery, saphenous vein from aorta to posterior descending artery. 2. Endoscopic left greater saphenous vein harvest 3. Left atrial appendage ligation using 35mm AtriClip 4. Graft flow measurements using the Medi-Stim flow meter system. 5. Trans-esophageal echo Anesthesia: GETA Surgeon: Jaime Noland Administration Intern #1: Obdulio Cabrera Administration Intern #2: Med Manjarrez Estimated Blood Loss (ml): 250 Pathology: none sent Condition: critical Disposition: ICU Indications for Procedure: This patient is a 68 year-old male who developed COVID -19 infection and associated non-ischemic cardiomyopathy last year with a decreased EF of 25%. Further work-up including coronary angio revealed CAD with HIGH SPEED OPERATOR of LAD and RCA. Over time his non-ischemic cardiomyopathy resolved and his EF improved to 45%. Given his coronary disease, CABG was recommended. His STS risk of morbidity and mortality was discussed with the patient and he was in agreement to proceed. Operative Findings: ANDREI 1.75mm good conduit. LAD 1.75mm good target at mid point, flow 42ml/min, P.I. 4.2 SV 2.25mm good conduit, PDA 1.5mm good target, flow 33ml/min, P.I. 4.8 Description of Procedure: The patient underwent central line, swan leeanna catheter, and arterial line placement by the anesthesia team. The patient was brought back to the operating room and placed on the table in supine position. General endotracheal anesthesia was induced and the patient was prepped and draped in the usual sterile fashion from the chin to the ankles. A time-out was performed and antibiotics were given. A midline incision was made on the chest. This was carried down to bone and a median sternotomy was performed. Hemostasis on the bone was achieved with electrocautery. The left pleura was entered and the left internal thoracic artery was harvested in a skeletonized fashion. Simultaneously another assistant sales manager harvested the left greater saphenous vein endoscopically. The patient was s ystemically heparinized and the ANDREI was transected and placed in a papaverine jacuzzi. A left sided chest tube was placed. The pericardium was opened in a reverse T-fashion and a pericardial cradle was created. The right pleura was opened widely. Stay sutures were placed and a window for the SUSHANT was created in the pericardium avoiding injury to the left phrenic nerve. Next, the left atrial appendage was ligated using a #35mm AtriClip. We then evaluated our targets and conduits. The second diagonal branch was too small for bypass with limited outflow. The decision was made not to bypass this vessel. Once the ACT > 250. The octopus stabilizer was used to stabilize the mid-LAD and the ARAUZ was cut to length and prepared. An arteriotomy was made in the LAD and a 1.5mm shunt was placed in the vessel. The vessel was of good quality. An endo to side anastomosis was performed between the RAAUZ to LAD using a running 7-0 Prolene. The flow through was removed prior to tieing down the suture. Next a stay suture was placed on the diaphragm near the IVC and the inferior wall was exposed and the posterior descending artery was stabilized and opened. A 1.5mm shunt was placed. The PDA was diseased but a decent target. An end to side with a saphenous vein to PDA was performed using a running 7-0 Prolene. The shunt was removed without difficulty prior to tieing down the anastomosis. The saphenous vein was fastened to the ascending aorta using a separate heartstring device and running 5-0 prolene. Graft flows were measured and they were excellent without evidence of competitive flow. Hemostasis was secured and a 19F Mahesh and 36F chest tube was placed in the right pleura and mediastinum respectively. The sternum was closed with pioneer cables. The fascia was closed with Ethibond. The subcutaneous tissues and skin of the sternum, and leg were closed with vicryl in layers. All counts were correct and the patient was transported to the ICU without the need for pressors. The patient tolerated the procedure well without any prolonged period of hypotension or instability. Post-op PARVEZ revealed good EF and stable LV thrombus.
[2023-05-13] MEDS ORDERED: ALBUMIN HUMAN 5% 250 ML IVPB ONE ×5 (12:06→15:43)
[2023-05-13] MEDS ORDERED: CALCIUM GLUCONATE IN NACL 2 GM in SALINE 1 100ML.BAG IVPB PRN (12:12)
[2023-05-13] MEDS ORDERED: AMIODARONE 450 MG in DEXTROSE 5% IN WATER 250 ML IV PRN ×2 (12:12)
[2023-05-13] MEDS ORDERED: DEXTROSE 5% IN WATER 100 ML with AMIODARONE 150 MG IV PRN (12:12)
[2023-05-13] MEDS ORDERED: METOCLOPRAMIDE 5 MG/ML 2 ML VIAL IVP PRN (12:12)
[2023-05-13] MEDS ORDERED: hydrALAZINE HCL 20 MG/ML 1 ML VIAL IVP PRN (12:12)
[2023-05-13] MEDS ORDERED: BENZOCAINE/MENTHOL LOZENG 1 EACH LOZENGE MUCOUS MEM PRN (12:12)
[2023-05-13] MEDS ORDERED: Magnesium Replacement Protocol 1 EACH MISC MISCELLANE PRN (12:12)
[2023-05-13] MEDS ORDERED: Potassium Replacement Protocol 1 EACH MISC MISCELLANE PRN (12:12)
[2023-05-13] MEDS ORDERED: IPRATROPIUM-ALBUTEROL 3 ML NEB INHALATION PRN (12:12)
[2023-05-13] MEDS ORDERED: DEXMEDETOMIDINE/0.9% NACL(PMX) 400 MCG in EMPTY BAG 1 BAG IV SCH (12:12)
[2023-05-13] MEDS ORDERED: AMIODARONE 360 MG in DEXTROSE 5% IN WATER 200 ML IV PRN ×2 (12:12)
[2023-05-13] MEDS ORDERED: ONDANSETRON 4 MG/2 ML VIAL IVP PRN (12:12)
[2023-05-13] MEDS ORDERED: ALBUMIN HUMAN 5% 250 ML in EMPTY BAG 1 BAG IVPB PRN (12:12)
[2023-05-13] MEDS ORDERED: DEXTROSE 50% SYRINGE 50 ML IVP PRN ×2 (12:12)
[2023-05-13 12:20] LABS: Glucose,Whole Blood 129 mg/dL (70-110)
[2023-05-13 12:50] LABS: ABG Base Excess -5.5 mmol/L; ABG HCO3 21 mmol/L (21-25); ABG Oxygen Saturation 99.6 % (94-97); ABG PCO2 41 mmHg (35-45); ABG PH 7.31 (7.35-7.45); ABG PO2 387 mmHg (83-108); ABG TCO2 22 mmol/L (19-24)
[2023-05-13 12:52] LABS: Allen Test Performed? no
[2023-05-13] MEDS ORDERED: PHENYLEPHRINE 40 MG in SODIUM CHLORIDE 0.9% 250 ML IV SCH (13:00)
[2023-05-13] MEDS: MILRINONE-D5W PMX 20 MG in DEXTROSE/WATER 1 100ML.BAG IV SCH (13:04)
[2023-05-13] MEDS: ALBUMIN HUMAN 5% 250 ML IVPB ONE ×2 (13:05→13:14)
--- NOTE | 2023-05-13 13:05 | XR ---
EXAMINATION TYPE: XR chest 1V portable DATE OF EXAM: 05/13/2023 12:38 PM COMPARISON: CT chest 05/04/2023, chest radiograph 05/04/2023 TECHNIQUE: XR chest 1V portable Portable AP radiograph of the chest. CLINICAL INDICATION:Male, 68 years old with history of Post Operative Cardiac Surgery; FINDINGS: Lungs/Pleura: There is no evidence of pleural effusion, focal consolidation, or pneumothorax. Pulmonary vascularity: Unremarkable. Heart/mediastinum: Cardiomediastinal silhouette is mildly enlarged with postsurgical changes.. Musculoskeletal: No acute osseous pathology. Midline sternotomy wires are noted. Other findings: None Lines/Tubes: Endotracheal tube with distal tip 4.6 cm above the hawa Nasogastric tube with its distal tip in the distal esophagus. Sidehole is in the midesophagus. Right IJ Elgin-Misha catheter with distal tip in the region the main pulmonary artery. Mediastinal drain identified. Bilateral chest tubes identified. The left is directed towards the medial left upper lung. The right is directed towards the mid lateral right lung. IMPRESSION: 1. Post surgical changes from cardiac surgery. 2. Bilateral chest tubes without evidence for sizable pneumothorax. 3. Elgin-Misha catheter, mediastinal drain, and endotracheal tubes appear in appropriate position. 4. NG tube is demonstrated with distal tip in the lower esophagus. Recommend advancement of approxim ately 12 cm.
--- NOTE | 2023-05-13 13:20 | P.ANPRN ---
Procedure Note - Anesthesia - PARVEZ Intraop Post Bypass PARVEZ Intraop Post Bypass Procedure Performed: CABG Left Ventricle: unchanged Ejection Fraction: Normal Regional Wall Motion Abnormalities: None R. Ventricle Function: Normal Aortic Valve: Unchanged Mitral Valve: Unchanged Tricuspid: Unchanged Pulmonic: Unchanged Aortic Dissection: No
[2023-05-13] MEDS: NOREPINEPHRINE 4 MG in SODIUM CHLORIDE 0.9% 250 ML IV SCH (13:39)
[2023-05-13] MEDS: LACTATED RINGERS 1,000 ML IV SCH (13:40)
[2023-05-13] MEDS: CLEVIDIPINE BUTYRATE 25 MG in EMPTY BAG 1 BAG IV SCH (13:41)
[2023-05-13] MEDS: NITROGLYCERIN-D5W PMX 50 MG in DEXTROSE/WATER 1 250ML.BAG IV SCH (13:41)
[2023-05-13] MEDS: ACETAMINOPHEN IV (For NPO) 1,000 MG in EMPTY BAG 1 BAG IVPB SCH ×2 (13:49→18:09)
[2023-05-13] MEDS: DEXTROSE/WATER 1 250ML.BAG with DOPamine DRIP 800 MG IV SCH ×2 (13:56→14:02)
[2023-05-13 14:19] LABS: Glucose,Whole Blood 223 mg/dL (70-110)
[2023-05-13 14:22] LABS: Ionized Calcium 4.8 mg/dL (4.5-5.3)
[2023-05-13 14:29] LABS: ALT 16 U/L (4-49); AST 21 U/L (17-59); African American GFR (CKD) 32 (>60 ml/min/1.73 sqM); Alkaline Phosphatase 53 U/L (38-126); Anion Gap 10 mmol/L; Blood Urea Nitrogen 39 mg/dL (9-20); Calcium 7.9 mg/dL (8.4-10.2); Carbon Dioxide 20 mmol/L (22-30); Chloride 107 mmol/L (98-107); Glucose 154 mg/dL (74-99); Magnesium 2.4 mg/dL (1.6-2.3); Non-African American GFR(CKD) 28 (>60 ml/min/1.73 sqM); Potassium 4.3 mmol/L (3.5-5.1); Sodium 137 mmol/L (137-145); Total Bilirubin 0.9 mg/dL (0.2-1.3); Total Protein 5.5 g/dL (6.3-8.2)
[2023-05-13 14:30] LABS: INR 1.1 (<1.2); Partial Thromboplastin Time 22.6 sec (22.0-30.0); Prothrombin Time 11.2 sec (9.0-12.0)
[2023-05-13] MEDS: INSULIN REGULAR 100 UNIT in SODIUM CHLORIDE 0.9% 100 ML IV SCH (14:34)
[2023-05-13] MEDS: IPRATROPIUM-ALBUTEROL 3 ML NEB INHALATION SCH ×3 (14:34→20:25)
[2023-05-13] MEDS ORDERED: MUPIROCIN 2% OINT 22 GM TUBE NASAL ONE (14:45)
[2023-05-13 15:06] LABS: Basophils # (A) 0.1 k/uL (0-0.2); Basophils % (A) 0 %; Eosinophils # (A) 0.8 k/uL (0-0.7); Eosinophils % (A) 3 %; HCT 36.6 % (39.0-53.0); HGB 11.6 gm/dL (13.0-17.5); Lymphocytes # (A) 3.1 k/uL (1.0-4.8); Lymphocytes % (A) 13 %; MCH 30.1 pg (25.0-35.0); MCHC 31.6 g/dL (31.0-37.0); MCV 95.1 fL (80.0-100.0); Monocytes # (A) 1.5 k/uL (0-1.0); Monocytes % (A) 6 %; Neutrophils # (A) 18.9 k/uL (1.3-7.7); Neutrophils % (A) 77 %; Platelet Count 230 k/uL (150-450); RBC 3.85 m/uL (4.30-5.90); RDW 12.2 % (11.5-15.5); WBC 24.4 k/uL (3.8-10.6)
--- NOTE | 2023-05-13 15:06 | P.CNPUL ---
History of Present Illness Consult date: 05/13/23 Requesting physician: Jaime Noland Reason for consult: other (Mechanical ventilator/critical care management) Chief complaint: Coronary artery disease History of present illness: This is a 68-year-old male patient with a known history of coronary artery disease, hypertension, hyperlipidemia, diabetes mellitus, benign prostatic hyperplasia, pulmonary embolism anticoagulated with Eliquis. He also has a history of COVID-19 infection and subsequent CVA felt to be secondary to hypercoagulability. In March 2023 at undergone cardiac catheterization that revealed a chronic total occlusion of the right coronary artery which fills by collaterals circulation, chronic total occlusion of the mid LAD by the bifurcation of the large diagonal branch with flush occlusion. The LAD fills by ipsilateral collaterals. He was recommended coronary artery bypass grafting. Echocardiogram revealed moderate LV dysfunction with ejection fraction of 40- 45%. He was brought in today for an elective surgery. He had undergone an off- pump coronary artery bypass grafting 2 with the left internal thoracic artery to the left anterior descending artery, saphenous vein graft from the aorta to the posterior descending artery. Left atrial appendage ligation with a 35mm Atriclip. He is seen postoperatively in the intensive care unit. He is intubated on the mechanical ventilator and assist control mode with a rate of 14, tidal volume 500, FiO2 50% and a PEEP of 10. Initial arterial blood gases revealed a PaO2 of 387, P CO2 of 41 and a pH of 7.31 on 100% FiO2. Sodium 137. Potassium 4.3. Bicarb 20. BUN 39. Creatinine 2.33. Glucose 154. Calcium 7.9. Magnesium 2.4. AST 21. ALT 16. Albumin 3.0. He is currently on dopamine at 2 mcg/kg/m. Milrinone at 0.3 mcg/kg/m. Norepinephrine at 0.06 mcg /kg/m propofol currently on hold. Insulin drip at 6 units per hour. Lactated Ringer's at 50 MLS per hour. PA pressure 43/19. Cardiac output 5.9. Cardiac index 2.8. Backup pacing at a rate of 50 bpm. Right and left pleural chest tubes in place with a small leak. Mediastinal chest tubes 2. Just x-ray reveals postsurgical changes. Bilateral chest tubes without evidence of sizable pneumothorax. Jarratt-Misha catheter, mediastinal drain, endotracheal and gastric tube secured in place. 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 Past Anesthesia/Blood Transfusion Reactions: No Reported Reaction Past Alcohol Use History: None Reported - Past Family History Mother Family Medical History: No Reported History Father Family Medical History: Myocardial Infarction ([place]) Additional Family Medical History / Comment(s): massive [place] @53 Medications and Allergies Home Medications Medication Instructions Recorded Confirmed Type Furosemide [Lasix] 20 mg PO DAILY 05/20/22 05/13/23 History Rosuvastatin [Crestor] 40 mg PO DAILY 05/20/22 05/13/23 History Sacubitril/Valsartan [Entresto 24 1 tab PO BID-W/MEALS 05/20/22 05/13/23 History mg-26 mg Tablet] Spironolactone [Aldactone] 25 mg PO PC-LUNCH 05/20/22 05/13/23 History carvediloL [Coreg] 6.25 mg PO BID-W/MEALS 05/20/22 05/13/23 History metFORMIN HCL 1,000 mg PO BID-W/MEALS 05/20/22 05/13/23 History Apixaban [Eliquis] 5 mg PO BID #0 05/25/22 05/13/23 Rx Aspirin 81 mg PO DAILY 30 Days #30 tab 05/25/22 05/13/23 Rx Liraglutide [Victoza 2-Javon] 1.2 mg SQ DAILY 04/13/23 05/13/23 History Allergies Allergy/AdvReac Type Severity Reaction Status Date / Time atorvastatin [From Lipitor] Allergy Rash/Hives Verified 05/13/23 05:54 Physical Exam Vitals: Vital Signs Temp Pulse Resp BP BP Pulse Ox FiO2 05/13/23 14:34 50 05/13/23 12:52 50 05/13/23 12:20 100 05/13/23 12:19 100 05/13/23 06:26 120/64 05/13/23 06:00 98.6 F 73 18 134/63 97 Intake and Output 05/12/23 05/13/23 05/13/23 22:59 06:59 14:59 Intake Total 100 17.004 Output Total 910 Balance 100 -892.996 Intake: IV 100 3 Intake, IV Titration 14.004 Amount Nitroglycerin-D5w Pmx 50 0.525 mg In Dextrose/Water 1 250ml.bag @ 5 MCG/MIN 1.5 mls/hr IV .Q24H JESSICA Rx#: [id number] Norepinephrine 4 mg In 10.526 Sodium Chloride 0.9% 250 ml @ 0.04 MCG/KG/MIN 15. 789 mls/hr IV .Q16H6M JESSICA Rx#:[id number] propofoL 1,000 mg In 2.953 Empty Bag 1 bag @ Titrate IV .Q0M JESSICA Rx#: [id number] Output: Urine 310 Estimated Blood Loss 600 Other: Weight 103.6 kg GENERAL EXAM: Intubated, sedated 68-year-old male patient on mechanical ventilator, comfortable in no apparent distress. HEAD: Normocephalic. EYES: Sluggish reaction of pupils, equal size. NOSE: Clear with pink turbinates. THROAT: Oral endotracheal and gastric tube secured in place. No erythema or exudates. NECK: Right IJ Jarratt-Misha catheter in place. No masses, no JVD. CHEST: Sternal dressing dry and intact. VVI backup pacer. Mediastinal 2, right and left pleural chest tubes in place. LUNGS: Equal air entry with no crackles, wheeze, rhonchi or dullness. CVS: S1 and S2 normal with no audible murmur, regular rhythm. ABDOMEN: No hepatosplenomegaly, hypoactive bowel sounds, no guarding or rigidity. SPINE: No scoliosis or deformity SKIN: No rashes CENTRAL NERVOUS SYSTEM: Sedated, tone is normal in all 4 extremities. EXTREMITIES: SAAD wraps to the bilateral lower extremities. Arterial line in place. There is no peripheral edema. No clubbing, no cyanosis. Peripheral pulses are intact. Results - Laboratory Findings CBC and BMP: 05/13/23 12:20 ABG ABG pH 7.31 (7.35-7.45) L 05/13/23 12:48 ABG pCO2 41 mmHg (35-45) 05/13/23 12:48 ABG pO2 387 mmHg (83-108) H 05/13/23 12:48 ABG O2 Saturation 99.6 % (94-97) H 05/13/23 12:48 PT/INR, D-dimer PT 11.2 sec (9.0-12.0) 05/13/23 12:20 INR 1.1 (<1.2) 05/13/23 12:20 Abnormal lab findings: Abnormal Labs 05/04/23 05/13/23 05/13/23 09:01 06:17 08:33 ABG pH ABG pO2 147 H ABG O2 Saturation 98.6 H ABG Glucose 188 H ABG Lactic Acid Hemoglobin 12.9 L Carbon Dioxide BUN Creatinine Glucose POC Glucose (mg/dL) 168 H Calcium Magnesium Total Protein Albumin Arterial Blood Glucose 188 H Crossmatch See Detail 05/13/23 05/13/23 05/13/23 09:48 10:16 10:52 ABG pH 7.32 L 7.34 L 7.34 L ABG pO2 141 H 170 H 172 H ABG O2 Saturation 98.7 H 98.8 H 98.9 H ABG Glucose 163 H 150 H 126 H ABG Lactic Acid 2.1 H Hemoglobin 12.7 L 12.7 L 12.3 L Carbon Dioxide BUN Creatinine Glucose POC Glucose (mg/dL) Calcium Magnesium Total Protein Albumin Arterial Blood Glucose 163 H 150 H 126 H Crossmatch 05/13/23 05/13/23 05/13/23 11:29 12:19 12:20 ABG pH ABG pO2 133 H ABG O2 Saturation 98.7 H ABG Glucose 105 H ABG Lactic Acid 2.7 H* Hemoglobin 12.0 L Carbon Dioxide 20 L BUN 39 H Creatinine 2.33 H Glucose 154 H POC Glucose (mg/dL) 129 H Calcium 7.9 L Magnesium 2.4 H Total Protein 5.5 L Albumin 3.0 L Arterial Blood Glucose 105 H Crossmatch 05/13/23 05/13/23 12:48 14:17 ABG pH 7.31 L ABG pO2 387 H ABG O2 Saturation 99.6 H ABG Glucose ABG Lactic Acid Hemoglobin Carbon Dioxide BUN Creatinine Glucose POC Glucose (mg/dL) 223 H Calcium Magnesium Total Protein Albumin Arterial Blood Glucose Crossmatch - Diagnostic Findings Chest x-ray: image reviewed Assessment and Plan Assessment: Coronary artery disease status post off-pump coronary artery bypass grafting 2 with a left internal thoracic artery to the left anterior descending artery, saphenous vein graft from the aorta to the posterior descending artery. Left atrial appendage ligation. Postoperative day #0. Ischemic cardiomyopathy with ejection fraction 40-45% Diabetes mellitus Hypertension CVA BPH Hyperlipidemia Previous COVID-19 infection Plan: The patient was seen and evaluated Chest x-ray, ABGs, labs and medications reviewed We'll plan for early extubation protocol as tolerated Continue bronchodilators Educated regarding using incentive spirometer Titrate the FiO2 as tolerated We will continue to follow and make further recommendations based on his clinical status I have personally seen and examined the patient, performed the documentation and the assessment and plan as written. Number of minutes spent on the visit: 20.
[2023-05-13 15:07] LABS: Glucose,Whole Blood 257 mg/dL (70-110)
[2023-05-13 15:15] LABS: Basophils % (A) 0 %; Eosinophils # (A) 0.2 k/uL (0-0.7); Eosinophils % (A) 1 %; HCT 30.7 % (39.0-53.0); HGB 10.2 gm/dL (13.0-17.5); Lymphocytes % (A) 7 %; MCH 31.7 pg (25.0-35.0); MCHC 33.3 g/dL (31.0-37.0); MCV 95.2 fL (80.0-100.0); Monocytes # (A) 0.2 k/uL (0-1.0); Monocytes % (A) 2 %; Neutrophils # (A) 12.4 k/uL (1.3-7.7); Neutrophils % (A) 90 %; Platelet Count 174 k/uL (150-450); RBC 3.23 m/uL (4.30-5.90); RDW 12.3 % (11.5-15.5); WBC 13.8 k/uL (3.8-10.6)
[2023-05-13 15:44] LABS: ABG Base Excess -8.8 mmol/L; ABG HCO3 18 mmol/L (21-25); ABG Oxygen Saturation 97.4 % (94-97); ABG PCO2 37 mmHg (35-45); ABG PH 7.29 (7.35-7.45); ABG PO2 99 mmHg (83-108); ABG TCO2 19 mmol/L (19-24)
[2023-05-13 15:46] LABS: Allen Test Performed? no
[2023-05-13] MEDS ORDERED: SODIUM BICARB 8.4% 50 ML SYR (1 MEQ/ML) ONE (15:49)
[2023-05-13] MEDS ORDERED: SODIUM BICARB 8.4% 50 ML SYR (1 MEQ/ML) IV STA (15:57)
[2023-05-13 16:06] LABS: Glucose,Whole Blood 218 mg/dL (70-110)
[2023-05-13 17:12] LABS: Glucose,Whole Blood 195 mg/dL (70-110)
[2023-05-13] MEDS: HEPARIN SODIUM,PORCINE/PF 5,000 UNIT/0.5 ML SYRINGE SQ SCH ×2 (17:19→23:47)
[2023-05-13 18:06] LABS: Glucose,Whole Blood 185 mg/dL (70-110)
[2023-05-13 18:47] LABS: Basophils % (A) 0 %; Eosinophils % (A) 0 %; HCT 31.3 % (39.0-53.0); HGB 11.4 gm/dL (13.0-17.5); Lymphocytes # (A) 0.7 k/uL (1.0-4.8); Lymphocytes % (A) 4 %; MCH 34.1 pg (25.0-35.0); MCHC 36.4 g/dL (31.0-37.0); MCV 93.7 fL (80.0-100.0); Mean Platelet Volume 7.7; Monocytes % (A) 6 %; Neutrophils % (A) 89 %; Platelet Count 174 k/uL (150-450); RBC 3.34 m/uL (4.30-5.90); RDW 12.3 % (11.5-15.5); WBC 16.8 k/uL (3.8-10.6)
[2023-05-13 19:03] LABS: Glucose,Whole Blood 163 mg/dL (70-110)
[2023-05-13 19:58] LABS: Glucose,Whole Blood 151 mg/dL (70-110)
[2023-05-13 20:57] LABS: Glucose,Whole Blood 146 mg/dL (70-110)
[2023-05-13 21:58] LABS: Glucose,Whole Blood 143 mg/dL (70-110)
[2023-05-13 23:24] LABS: Glucose,Whole Blood 133 mg/dL (70-110)
[2023-05-13 23:53] LABS: Glucose,Whole Blood 124 mg/dL (70-110)
[2023-05-13] MEDS ORDERED: HYDROcodone/APAP 10-325MG 1 EACH TAB PO PRN (23:59)
[2023-05-14 00:58] LABS: Glucose,Whole Blood 124 mg/dL (70-110)
[2023-05-14] MEDS: NOREPINEPHRINE 4 MG in SODIUM CHLORIDE 0.9% 250 ML IV SCH ×2 (00:58→19:30)
[2023-05-14] MEDS: INSULIN REGULAR 100 UNIT in SODIUM CHLORIDE 0.9% 100 ML IV SCH ×2 (00:58→20:30)
[2023-05-14] MEDS: MILRINONE-D5W PMX 20 MG in DEXTROSE/WATER 1 100ML.BAG IV SCH ×2 (01:25→14:15)
[2023-05-14 02:13] LABS: Glucose,Whole Blood 124 mg/dL (70-110)
[2023-05-14 02:59] LABS: Glucose,Whole Blood 122 mg/dL (70-110)
[2023-05-14 04:04] LABS: Glucose,Whole Blood 116 mg/dL (70-110)
[2023-05-14 04:13] LABS: Basophils % (A) 0 %; Eosinophils % (A) 0 %; HCT 29.7 % (39.0-53.0); HGB 10.7 gm/dL (13.0-17.5); Lymphocytes # (A) 0.8 k/uL (1.0-4.8); Lymphocytes % (A) 6 %; MCH 33.5 pg (25.0-35.0); MCHC 36.2 g/dL (31.0-37.0); MCV 92.7 fL (80.0-100.0); Mean Platelet Volume 8.8; Monocytes # (A) 0.9 k/uL (0-1.0); Monocytes % (A) 7 %; Neutrophils # (A) 11.1 k/uL (1.3-7.7); Neutrophils % (A) 86 %; Platelet Count 143 k/uL (150-450); RBC 3.21 m/uL (4.30-5.90); RDW 12.5 % (11.5-15.5); WBC 12.9 k/uL (3.8-10.6)
[2023-05-14 04:24] LABS: Ionized Calcium 4.3 mg/dL (4.5-5.3)
[2023-05-14 04:33] LABS: ALT 11 U/L (4-49); AST 23 U/L (17-59); African American GFR (CKD) 25 (>60 ml/min/1.73 sqM); Albumin 3.5 g/dL (3.5-5.0); Alkaline Phosphatase 30 U/L (38-126); Anion Gap 10 mmol/L; Blood Urea Nitrogen 43 mg/dL (9-20); Calcium 7.7 mg/dL (8.4-10.2); Carbon Dioxide 21 mmol/L (22-30); Chloride 106 mmol/L (98-107); Glucose 105 mg/dL (74-99); Magnesium 2.1 mg/dL (1.6-2.3); Non-African American GFR(CKD) 22 (>60 ml/min/1.73 sqM); Sodium 137 mmol/L (137-145); Total Protein 5.6 g/dL (6.3-8.2)
[2023-05-14] MEDS: HYDROcodone/APAP 5-325MG 1 EACH TAB PO PRN ×2 (04:41→20:06)
[2023-05-14 04:55] LABS: Glucose,Whole Blood 111 mg/dL (70-110)
[2023-05-14 05:56] LABS: Glucose,Whole Blood 131 mg/dL (70-110)
[2023-05-14 06:56] LABS: Glucose,Whole Blood 157 mg/dL (70-110)
--- NOTE | 2023-05-14 07:34 | P.CONS ---
History of Present Illness - History of Present Illness Pleasant 68 years old male with past medical history of Diabetes Mellitus, Hy pertension, hyperlipidemia, benign prostatic hypertrophy, pulmonary embolism on blood thinner He was admitted for coronary artery disease affecting mainly to vessels and underwent coronary artery bypass surgery yesterday and he was on mechanical ventilation for a short lived time, eventually he got extubated. Comfortable in bed with no chest pain or dyspnea. Hemodynamically stable. Patient has mild worsening of creatinine 2.8, 1.3 yesterday Review of Systems Review of systems CONSTITUTIONAL: No fever, no malaise, no fatigue. HEENT: No recent visual problems or hearing problems. Denied any sore throat. CARDIOVASCULAR: No orthopnea, PND, no palpitations, no syncope. PULMONARY: No shortness of breath, no cough, no hemoptysis. GASTROINTESTINAL: No diarrhea, no nausea, no vomiting, no abdominal pain. Normoactive bowel sounds. NEUROLOGICAL: No headaches, no weakness, no numbness. HEMATOLOGICAL: Denies any bleeding or petechiae. GENITOURINARY: Denies any burning micturition, frequency, or urgency. MUSCULOSKELETAL/RHEUMATOLOGICAL: Denies any joint pain, swelling, or any muscle pain. ENDOCRINE: Denies any polyuria or polydipsia. 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 Past Anesthesia/Blood Transfusion Reactions: No Reported Reaction Past Alcohol Use History: None Reported - Past Family History Mother Family Medical History: No Reported History Father Family Medical History: Myocardial Infarction ([place]) Additional Family Medical History / Comment(s): massive [place] @53 Medications and Allergies Home Medications Medication Instructions Recorded Confirmed Type Furosemide [Lasix] 20 mg PO DAILY 05/20/22 05/13/23 History Rosuvastatin [Crestor] 40 mg PO DAILY 05/20/22 05/13/23 History Sacubitril/Valsartan [Entresto 24 1 tab PO BID-W/MEALS 05/20/22 05/13/23 History mg-26 mg Tablet] Spironolactone [Aldactone] 25 mg PO PC-LUNCH 05/20/22 05/13/23 History carvediloL [Coreg] 6.25 mg PO BID-W/MEALS 05/20/22 05/13/23 History metFORMIN HCL 1,000 mg PO BID-W/MEALS 05/20/22 05/13/23 History Apixaban [Eliquis] 5 mg PO BID #0 05/25/22 05/13/23 Rx Aspirin 81 mg PO DAILY 30 Days #30 tab 05/25/22 05/13/23 Rx Liraglutide [Victoza 2-Javon] 1.2 mg SQ DAILY 04/13/23 05/13/23 History Allergies Allergy/AdvReac Type Severity Reaction Status Date / Time atorvastatin [From Lipitor] Allergy Rash/Hives Verified 05/13/23 05:54 Physical Exam Vitals: Vital Signs Temp Pulse Resp BP Pulse Ox FiO2 05/14/23 07:00 74 21 123/67 92 L 05/14/23 06:45 75 17 109/54 95 05/14/23 06:30 75 13 116/52 95 05/14/23 06:15 73 21 96/51 95 05/14/23 06:00 74 14 103/50 95 05/14/23 05:45 75 24 117/54 95 05/14/23 05:30 75 14 139/65 05/14/23 05:15 75 18 94 L 05/14/23 05:00 72 13 114/54 94 L 05/14/23 04:45 70 16 107/57 94 L 05/14/23 04:30 71 17 108/58 94 L 05/14/23 04:15 70 19 113/53 94 L 05/14/23 04:00 98.2 F 73 12 96/51 94 L 05/14/23 03:45 73 18 115/52 94 L 05/14/23 03:30 69 21 101/58 94 L 05/14/23 03:15 71 16 107/56 94 L 05/14/23 03:00 72 15 105/51 94 L 05/14/23 02:45 75 20 108/54 94 L 05/14/23 02:30 74 23 103/55 94 L 05/14/23 02:15 73 20 97/58 95 05/14/23 02:00 77 22 101/58 94 L 05/14/23 01:45 75 13 107/60 93 L 05/14/23 01:30 76 19 109/54 94 L 05/14/23 01:15 78 19 107/59 95 05/14/23 01:00 79 17 113/56 94 L 05/14/23 00:45 79 15 113/59 94 L 05/14/23 00:30 76 22 109/63 94 L 05/14/23 00:15 73 16 102/56 89 L 05/14/23 00:00 97.7 F 81 18 104/51 92 L 05/13/23 23:45 81 18 93/61 93 L 05/13/23 23:30 81 10 L 99/50 92 L 05/13/23 23:15 81 20 103/55 93 L 05/13/23 23:00 82 0 L 111/58 94 L 05/13/23 22:45 81 3 L 106/56 94 L 05/13/23 22:30 84 10 L 100/54 93 L 05/13/23 22:15 86 17 115/48 93 L 05/13/23 22:00 83 24 102/58 92 L 05/13/23 21:45 86 19 115/70 94 L 05/13/23 21:30 81 23 105/53 94 L 05/13/23 21:15 86 12 114/57 94 L 05/13/23 21:00 85 21 107/59 95 05/13/23 20:45 88 17 108/60 95 05/13/23 20:37 86 05/13/23 20:30 84 19 121/63 98 05/13/23 20:28 84 05/13/23 20:15 82 16 119/56 95 05/13/23 20:00 97.0 F L 82 18 105/50 96 05/13/23 19:45 85 17 109/56 95 05/13/23 19:30 89 14 102/54 93 L 05/13/23 19:15 90 20 101/51 92 L 05/13/23 19:00 92 21 110/55 92 L 05/13/23 18:45 86 19 99/50 91 L 05/13/23 18:30 86 17 102/55 91 L 05/13/23 18:15 90 25 H 105/55 93 L 05/13/23 18:00 86 24 104/58 92 L 05/13/23 17:45 87 10 L 108/52 91 L 05/13/23 17:30 88 26 H 100/52 91 L 05/13/23 17:15 87 7 L 107/52 91 L 05/13/23 17:00 86 4 L 105/52 92 L 05/13/23 16:45 89 0 L 94/50 92 L 05/13/23 16:30 85 6 L 105/50 94 L 05/13/23 16:15 85 12 96/46 95 05/13/23 16:00 96.4 F L 85 8 L 122/54 94 L 05/13/23 15:45 69 15 96/51 98 05/13/23 15:30 75 14 104/52 98 05/13/23 15:15 73 13 104/51 99 05/13/23 15:13 50 05/13/23 15:00 73 16 122/57 99 05/13/23 14:47 75 05/13/23 14:45 74 14 117/54 100 05/13/23 14:40 76 05/13/23 14:34 50 05/13/23 14:30 73 15 93/47 99 05/13/23 14:15 74 11 L 95/50 99 05/13/23 14:00 77 11 L 115/54 99 05/13/23 13:45 74 13 101/54 99 05/13/23 13:30 73 14 127/82 100 50 05/13/23 13:15 67 14 73/44 98 05/13/23 13:00 74 15 124/69 99 05/13/23 12:52 50 05/13/23 12:45 68 14 67/48 100 05/13/23 12:30 68 14 68/50 99 05/13/23 12:20 100 05/13/23 12:19 100 05/13/23 12:15 70 18 Intake and Output 05/13/23 05/14/23 05/14/23 22:59 06:59 14:59 Intake Total 4272.688 2398.514 Output Total 625 560 Balance 141.350 8293.514 Intake: IV 383 664 Cardiac output 170 160 Lactated Ringers 1,000 ml 150 450 @ 50 mls/hr IV .Q20H [facility] Rx#:[id number] pressure bags 63 54 Intake, IV Titration 1126.680 44.514 Amount ACETAMINOPHEN IV (For NPO 100 ) 1,000 mg In Empty Bag 1 bag @ 400 mls/hr IVPB Q6H [facility] Rx#:[id number] Albumin Human 5% 250 ml @ 100 0 mls/hr IVPB .STK-MED ONE Rx#:[id number] Albumin Human 5% 250 ml @ 500 0 mls/hr IVPB .STK-MED ONE Rx#:[id number] Insulin Regular 100 unit 42.580 21.555 In Sodium Chloride 0.9% 100 ml @ Per Protocol IV .Q0M [facility] Rx#:[id number] Lactated Ringers 1,000 ml 150 @ 50 mls/hr IV .Q20H [facility] Rx#:[id number] Milrinone-D5w Pmx 20 mg 25.952 In Dextrose/Water 1 100ml .bag @ 0.25 MCG/KG/MIN 7. 77 mls/hr IV .[id number] [facility] Rx#:[id number] Norepinephrine 4 mg In 158.148 22.959 Sodium Chloride 0.9% 250 ml @ 0.04 MCG/KG/MIN 15. 789 mls/hr IV .Q16H6M [facility] Rx#:[id number] ceFAZolin 2 gm In Sodium 50 Chloride 0.9% 50 ml @ 100 mls/hr IVPB Q8HR [facility] Rx# :[id number] Oral 900 Output: Chest Tube Drainage 475 360 left and right pleural 230 330 mediastinal 245 30 Urine 150 200 Other: Voiding Method Indwelling Catheter Indwelling Catheter Weight 107.6 kg ABP, PAP, CO, CI - Last 8 Hours Arterial Blood Pressure 106/39 Arterial Blood Pressure 93/38 Arterial Blood Pressure 107/39 Arterial Blood Pressure 106/42 Arterial Blood Pressure 90/36 Arterial Blood Pressure 105/40 Arterial Blood Pressure 150/55 Arterial Blood Pressure 134/51 Arterial Blood Pressure 126/45 Arterial Blood Pressure 117/44 Arterial Blood Pressure 117/43 Arterial Blood Pressure 111/41 Arterial Blood Pressure 113/41 Arterial Blood Pressure 110/42 Arterial Blood Pressure 116/43 Arterial Blood Pressure 105/41 Arterial Blood Pressure 108/43 Arterial Blood Pressure 110/43 Arterial Blood Pressure 115/43 Arterial Blood Pressure 109/40 Arterial Blood Pressure 99/41 Arterial Blood Pressure 99/46 Arterial Blood Pressure 102/42 Arterial Blood Pressure 115/44 Arterial Blood Pressure 120/45 Arterial Blood Pressure 116/43 Arterial Blood Pressure 120/45 Arterial Blood Pressure 95/50 Arterial Blood Pressure 110/45 Arterial Blood Pressure 108/46 Arterial Blood Pressure 108/46 Pulmonary Artery Pressure 40/11 Pulmonary Artery Pressure 38/10 Pulmonary Artery Pressure 31/7 Pulmonary Artery Pressure 30/8 Pulmonary Artery Pressure 30/9 Pulmonary Artery Pressure 36/12 Pulmonary Artery Pressure 39/15 Pulmonary Artery Pressure 38/13 Pulmonary Artery Pressure 35/11 Pulmonary Artery Pressure 36/11 Pulmonary Artery Pressure 36/11 Pulmonary Artery Pressure 35/10 Pulmonary Artery Pressure 38/12 Pulmonary Artery Pressure 40/13 Pulmonary Artery Pressure 31/10 Pulmonary Artery Pressure 37/14 Pulmonary Artery Pressure 31/12 Pulmonary Artery Pressure 30/12 Pulmonary Artery Pressure 27/11 Pulmonary Artery Pressure 27/10 Pulmonary Artery Pressure 34/10 Pulmonary Artery Pressure 28/9 Pulmonary Artery Pressure 32/11 Pulmonary Artery Pressure 32/11 Pulmonary Artery Pressure 32/10 Pulmonary Artery Pressure 30/10 Pulmonary Artery Pressure 42/14 Pulmonary Artery Pressure 36/15 Pulmonary Artery Pressure 34/14 Pulmonary Artery Pressure 34/13 Cardiac Output 4.5 Cardiac Output 4.8 Cardiac Output 4.5 Cardiac Output 3.9 Cardiac Output 4.1 Cardiac Output 4.9 Cardiac Index 2.2 Cardiac Index 2.3 Cardiac Index 2.2 Cardiac Index 1.9 Cardiac Index 2.0 Cardiac Index 2.3 GENERAL: The patient is alert and oriented x3, not in any acute distress. Well developed, well nourished. HEENT: Pupils are round and equally reacting to light. EOMI. No scleral icterus. No conjunctival pallor. Normocephalic, atraumatic. No pharyngeal erythema. No thyromegaly. CARDIOVASCULAR: S1 and S2 present. No murmurs, rubs, or gallops. PULMONARY: Chest is clear to auscultation, no wheezing , no crackles. ABDOMEN: Soft, nontender, nondistended, normoactive bowel sounds. No palpable organomegaly. MUSCULOSKELETAL: No joint swelling or deformity. EXTREMITIES: No cyanosis, clubbing, or pedal edema. NEUROLOGICAL: Gross neurological examination did not reveal any focal deficits. SKIN: No rashes. no petechiae. Results CBC & Chem 7: 05/14/23 04:00 05/14/23 04:00 Labs: Abnormal Lab Results - Last 24 Hours (Table) 05/04/23 05/13/23 05/13/23 Range/Units 09:01 08:33 09:48 WBC (3.8-10.6) k/uL RBC (4.30-5.90) m/uL Hgb (13.0-17.5) gm/dL Hct (39.0-53.0) % Plt Count (150-450) k/uL Neutrophils # (1.3-7.7) k/uL Lymphocytes # (1.0-4.8) k/uL Monocytes # (0-1.0) k/uL Eosinophils # (0-0.7) k/uL ABG pH 7.32 L (7.35-7.45) ABG pO2 147 H 141 H (83-108) mmHg ABG HCO3 (21-25) mmol/L ABG O2 Saturation 98.6 H 98.7 H (94-97) % ABG Glucose 188 H 163 H (75-99) mg/dL ABG Lactic Acid (0.5-1.6) mmol/L Hemoglobin 12.9 L 12.7 L (13.0-17.5) gm/dL Carbon Dioxide (22-30) mmol/L BUN (9-20) mg/dL Creatinine (0.66-1.25) mg/dL Glucose (74-99) mg/dL POC Glucose (mg/dL) (70-110) mg/dL Calcium (8.4-10.2) mg/dL Ionized Calcium [place] (4.5-5.3) mg/dL Magnesium (1.6-2.3) mg/dL Alkaline Phosphatase (38-126) U/L Total Protein (6.3-8.2) g/dL Albumin (3.5-5.0) g/dL Arterial Blood Glucose 188 H 163 H (75-99) mg/dL Crossmatch See Detail 05/13/23 05/13/23 05/13/23 Range/Units 10:16 10:52 11:29 WBC (3.8-10.6) k/uL RBC (4.30-5.90) m/uL Hgb (13.0-17.5) gm/dL Hct (39.0-53.0) % Plt Count (150-450) k/uL Neutrophils # (1.3-7.7) k/uL Lymphocytes # (1.0-4.8) k/uL Monocytes # (0-1.0) k/uL Eosinophils # (0-0.7) k/uL ABG pH 7.34 L 7.34 L (7.35-7.45) ABG pO2 170 H 172 H 133 H (83-108) mmHg ABG HCO3 (21-25) mmol/L ABG O2 Saturation 98.8 H 98.9 H 98.7 H (94-97) % ABG Glucose 150 H 126 H 105 H (75-99) mg/dL ABG Lactic Acid 2.1 H 2.7 H* (0.5-1.6) mmol/L Hemoglobin 12.7 L 12.3 L 12.0 L (13.0-17.5) gm/dL Carbon Dioxide (22-30) mmol/L BUN (9-20) mg/dL Creatinine (0.66-1.25) mg/dL Glucose (74-99) mg/dL POC Glucose (mg/dL) (70-110) mg/dL Calcium (8.4-10.2) mg/dL Ionized Calcium [place] (4.5-5.3) mg/dL Magnesium (1.6-2.3) mg/dL Alkaline Phosphatase (38-126) U/L Total Protein (6.3-8.2) g/dL Albumin (3.5-5.0) g/dL Arterial Blood Glucose 150 H 126 H 105 H (75-99) mg/dL Crossmatch 05/13/23 05/13/23 05/13/23 Range/Units 12:19 12:20 12:20 WBC 24.4 H (3.8-10.6) k/uL RBC 3.85 L (4.30-5.90) m/uL Hgb 11.6 L (13.0-17.5) gm/dL Hct 36.6 L (39.0-53.0) % Plt Count (150-450) k/uL Neutrophils # 18.9 H (1.3-7.7) k/uL Lymphocytes # (1.0-4.8) k/uL Monocytes # 1.5 H (0-1.0) k/uL Eosinophils # 0.8 H (0-0.7) k/uL ABG pH (7.35-7.45) ABG pO2 (83-108) mmHg ABG HCO3 (21-25) mmol/L ABG O2 Saturation (94-97) % ABG Glucose (75-99) mg/dL ABG Lactic Acid (0.5-1.6) mmol/L Hemoglobin (13.0-17.5) gm/dL Carbon Dioxide 20 L (22-30) mmol/L BUN 39 H (9-20) mg/dL Creatinine 2.33 H (0.66-1.25) mg/dL Glucose 154 H (74-99) mg/dL POC Glucose (mg/dL) 129 H (70-110) mg/dL Calcium 7.9 L (8.4-10.2) mg/dL Ionized Calcium [place] (4.5-5.3) mg/dL Magnesium 2.4 H (1.6-2.3) mg/dL Alkaline Phosphatase (38-126) U/L Total Protein 5.5 L (6.3-8.2) g/dL Albumin 3.0 L (3.5-5.0) g/dL Arterial Blood Glucose (75-99) mg/dL Crossmatch 05/13/23 05/13/23 05/13/23 Range/Units 12:48 14:17 15:06 WBC (3.8-10.6) k/uL RBC (4.30-5.90) m/uL Hgb (13.0-17.5) gm/dL Hct (39.0-53.0) % Plt Count (150-450) k/uL Neutrophils # (1.3-7.7) k/uL Lymphocytes # (1.0-4.8) k/uL Monocytes # (0-1.0) k/uL Eosinophils # (0-0.7) k/uL ABG pH 7.31 L (7.35-7.45) ABG pO2 387 H (83-108) mmHg ABG HCO3 (21-25) mmol/L ABG O2 Saturation 99.6 H (94-97) % ABG Glucose (75-99) mg/dL ABG Lactic Acid (0.5-1.6) mmol/L Hemoglobin (13.0-17.5) gm/dL Carbon Dioxide (22-30) mmol/L BUN (9-20) mg/dL Creatinine (0.66-1.25) mg/dL Glucose (74-99) mg/dL POC Glucose (mg/dL) 223 H 257 H (70-110) mg/dL Calcium (8.4-10.2) mg/dL Ionized Calcium [place] (4.5-5.3) mg/dL Magnesium (1.6-2.3) mg/dL Alkaline Phosphatase (38-126) U/L Total Protein (6.3-8.2) g/dL Albumin (3.5-5.0) g/dL Arterial Blood Glucose (75-99) mg/dL Crossmatch 05/13/23 05/13/23 05/13/23 Range/Units 15:10 15:42 16:05 WBC 13.8 H (3.8-10.6) k/uL RBC 3.23 L (4.30-5.90) m/uL Hgb 10.2 L (13.0-17.5) gm/dL Hct 30.7 L (39.0-53.0) % Plt Count (150-450) k/uL Neutrophils # 12.4 H (1.3-7.7) k/uL Lymphocytes # (1.0-4.8) k/uL Monocytes # (0-1.0) k/uL Eosinophils # (0-0.7) k/uL ABG pH 7.29 L (7.35-7.45) ABG pO2 (83-108) mmHg ABG HCO3 18 L (21-25) mmol/L ABG O2 Saturation 97.4 H (94-97) % ABG Glucose (75-99) mg/dL ABG Lactic Acid (0.5-1.6) mmol/L Hemoglobin (13.0-17.5) gm/dL Carbon Dioxide (22-30) mmol/L BUN (9-20) mg/dL Creatinine (0.66-1.25) mg/dL Glucose (74-99) mg/dL POC Glucose (mg/dL) 218 H (70-110) mg/dL Calcium (8.4-10.2) mg/dL Ionized Calcium [place] (4.5-5.3) mg/dL Magnesium (1.6-2.3) mg/dL Alkaline Phosphatase (38-126) U/L Total Protein (6.3-8.2) g/dL Albumin (3.5-5.0) g/dL Arterial Blood Glucose (75-99) mg/dL Crossmatch 05/13/23 05/13/23 05/13/23 Range/Units 17:11 18:04 18:05 WBC 16.8 H (3.8-10.6) k/uL RBC 3.34 L (4.30-5.90) m/uL Hgb 11.4 L (13.0-17.5) gm/dL Hct 31.3 L (39.0-53.0) % Plt Count (150-450) k/uL Neutrophils # 15.0 H (1.3-7.7) k/uL Lymphocytes # 0.7 L (1.0-4.8) k/uL Monocytes # (0-1.0) k/uL Eosinophils # (0-0.7) k/uL ABG pH (7.35-7.45) ABG pO2 (83-108) mmHg ABG HCO3 (21-25) mmol/L ABG O2 Saturation (94-97) % ABG Glucose (75-99) mg/dL ABG Lactic Acid (0.5-1.6) mmol/L Hemoglobin (13.0-17.5) gm/dL Carbon Dioxide (22-30) mmol/L BUN (9-20) mg/dL Creatinine (0.66-1.25) mg/dL Glucose (74-99) mg/dL POC Glucose (mg/dL) 195 H 185 H (70-110) mg/dL Calcium (8.4-10.2) mg/dL Ionized Calcium [place] (4.5-5.3) mg/dL Magnesium (1.6-2.3) mg/dL Alkaline Phosphatase (38-126) U/L Total Protein (6.3-8.2) g/dL Albumin (3.5-5.0) g/dL Arterial Blood Glucose (75-99) mg/dL Crossmatch 05/13/23 05/13/23 05/13/23 Range/Units 19:01 19:57 20:54 WBC (3.8-10.6) k/uL RBC (4.30-5.90) m/uL Hgb (13.0-17.5) gm/dL Hct (39.0-53.0) % Plt Count (150-450) k/uL Neutrophils # (1.3-7.7) k/uL Lymphocytes # (1.0-4.8) k/uL Monocytes # (0-1.0) k/uL Eosinophils # (0-0.7) k/uL ABG pH (7.35-7.45) ABG pO2 (83-108) mmHg ABG HCO3 (21-25) mmol/L ABG O2 Saturation (94-97) % ABG Glucose (75-99) mg/dL ABG Lactic Acid (0.5-1.6) mmol/L Hemoglobin (13.0-17.5) gm/dL Carbon Dioxide (22-30) mmol/L BUN (9-20) mg/dL Creatinine (0.66-1.25) mg/dL Glucose (74-99) mg/dL POC Glucose (mg/dL) 163 H 151 H 146 H (70-110) mg/dL Calcium (8.4-10.2) mg/dL Ionized Calcium [place] (4.5-5.3) mg/dL Magnesium (1.6-2.3) mg/dL Alkaline Phosphatase (38-126) U/L Total Protein (6.3-8.2) g/dL Albumin (3.5-5.0) g/dL Arterial Blood Glucose (75-99) mg/dL Crossmatch 05/13/23 05/13/23 05/13/23 Range/Units 21:57 23:01 23:51 WBC (3.8-10.6) k/uL RBC (4.30-5.90) m/uL Hgb (13.0-17.5) gm/dL Hct (39.0-53.0) % Plt Count (150-450) k/uL Neutrophils # (1.3-7.7) k/uL Lymphocytes # (1.0-4.8) k/uL Monocytes # (0-1.0) k/uL Eosinophils # (0-0.7) k/uL ABG pH (7.35-7.45) ABG pO2 (83-108) mmHg ABG HCO3 (21-25) mmol/L ABG O2 Saturation (94-97) % ABG Glucose (75-99) mg/dL ABG Lactic Acid (0.5-1.6) mmol/L Hemoglobin (13.0-17.5) gm/dL Carbon Dioxide (22-30) mmol/L BUN (9-20) mg/dL Creatinine (0.66-1.25) mg/dL Glucose (74-99) mg/dL POC Glucose (mg/dL) 143 H 133 H 124 H (70-110) mg/dL Calcium (8.4-10.2) mg/dL Ionized Calcium [place] (4.5-5.3) mg/dL Magnesium (1.6-2.3) mg/dL Alkaline Phosphatase (38-126) U/L Total Protein (6.3-8.2) g/dL Albumin (3.5-5.0) g/dL Arterial Blood Glucose (75-99) mg/dL Crossmatch 05/14/23 05/14/23 05/14/23 Range/Units 00:56 02:11 02:57 WBC (3.8-10.6) k/uL RBC (4.30-5.90) m/uL Hgb (13.0-17.5) gm/dL Hct (39.0-53.0) % Plt Count (150-450) k/uL Neutrophils # (1.3-7.7) k/uL Lymphocytes # (1.0-4.8) k/uL Monocytes # (0-1.0) k/uL Eosinophils # (0-0.7) k/uL ABG pH (7.35-7.45) ABG pO2 (83-108) mmHg ABG HCO3 (21-25) mmol/L ABG O2 Saturation (94-97) % ABG Glucose (75-99) mg/dL ABG Lactic Acid (0.5-1.6) mmol/L Hemoglobin (13.0-17.5) gm/dL Carbon Dioxide (22-30) mmol/L BUN (9-20) mg/dL Creatinine (0.66-1.25) mg/dL Glucose (74-99) mg/dL POC Glucose (mg/dL) 124 H 124 H 122 H (70-110) mg/dL Calcium (8.4-10.2) mg/dL Ionized Calcium [place] (4.5-5.3) mg/dL Magnesium (1.6-2.3) mg/dL Alkaline Phosphatase (38-126) U/L Total Protein (6.3-8.2) g/dL Albumin (3.5-5.0) g/dL Arterial Blood Glucose (75-99) mg/dL Crossmatch 05/14/23 05/14/23 05/14/23 Range/Units 04:00 04:00 04:02 WBC 12.9 H (3.8-10.6) k/uL RBC 3.21 L (4.30-5.90) m/uL Hgb 10.7 L (13.0-17.5) gm/dL Hct 29.7 L (39.0-53.0) % Plt Count 143 L (150-450) k/uL Neutrophils # 11.1 H (1.3-7.7) k/uL Lymphocytes # 0.8 L (1.0-4.8) k/uL Monocytes # (0-1.0) k/uL Eosinophils # (0-0.7) k/uL ABG pH (7.35-7.45) ABG pO2 (83-108) mmHg ABG HCO3 (21-25) mmol/L ABG O2 Saturation (94-97) % ABG Glucose (75-99) mg/dL ABG Lactic Acid (0.5-1.6) mmol/L Hemoglobin (13.0-17.5) gm/dL Carbon Dioxide 21 L (22-30) mmol/L BUN 43 H (9-20) mg/dL Creatinine 2.83 H (0.66-1.25) mg/dL Glucose 105 H (74-99) mg/dL POC Glucose (mg/dL) 116 H (70-110) mg/dL Calcium 7.7 L (8.4-10.2) mg/dL Ionized Calcium [place] 4.3 L (4.5-5.3) mg/dL Magnesium (1.6-2.3) mg/dL Alkaline Phosphatase 30 L (38-126) U/L Total Protein 5.6 L (6.3-8.2) g/dL Albumin (3.5-5.0) g/dL Arterial Blood Glucose (75-99) mg/dL Crossmatch 05/14/23 05/14/23 05/14/23 Range/Units 04:55 05:55 06:55 WBC (3.8-10.6) k/uL RBC (4.30-5.90) m/uL Hgb (13.0-17.5) gm/dL Hct (39.0-53.0) % Plt Count (150-450) k/uL Neutrophils # (1.3-7.7) k/uL Lymphocytes # (1.0-4.8) k/uL Monocytes # (0-1.0) k/uL Eosinophils # (0-0.7) k/uL ABG pH (7.35-7.45) ABG pO2 (83-108) mmHg ABG HCO3 (21-25) mmol/L ABG O2 Saturation (94-97) % ABG Glucose (75-99) mg/dL ABG Lactic Acid (0.5-1.6) mmol/L Hemoglobin (13.0-17.5) gm/dL Carbon Dioxide (22-30) mmol/L BUN (9-20) mg/dL Creatinine (0.66-1.25) mg/dL Glucose (74-99) mg/dL POC Glucose (mg/dL) 111 H 131 H 157 H (70-110) mg/dL Calcium (8.4-10.2) mg/dL Ionized Calcium [place] (4.5-5.3) mg/dL Magnesium (1.6-2.3) mg/dL Alkaline Phosphatase (38-126) U/L Total Protein (6.3-8.2) g/dL Albumin (3.5-5.0) g/dL Arterial Blood Glucose (75-99) mg/dL Crossmatch Assessment and Plan Assessment: Coronary artery disease status post CABG surgery on 05/13 Acute kidney injury on chronic kidney disease stage III Cardiomyopathy with ejection fraction 40-45% Diabetes mellitus Hypertension Hyperlipidemia History of pulmonary embolism on Eliquis Plan: Continue with this Aspirin and Plavix Continue the breathing treatment Incentive spirometry Continue with gentle hydration and monitor creatinine and continued to worsen consult on nephrology consult. In the meantime send urine analysis and bladder scan Several consultants on the case significant cardiothoracic surgery primary team, pulmonary team and cardiology team Labs and medication reviewed.. Continue same treatment. Continue with sym ptomatic treatment. Resume home medication. Monitor lytes and vitals. DVT and GI prophylaxis. Further recommendations depends on the clinical course of the patient DVT prophylaxis: Deferred to surgery team GI Prophylaxis: Ppi thank you for consulting us and we will follow up with the
[2023-05-14] MEDS: IPRATROPIUM-ALBUTEROL 3 ML NEB INHALATION SCH ×4 (07:44→19:36)
[2023-05-14 08:07] LABS: Glucose,Whole Blood 149 mg/dL (70-110)
--- NOTE | 2023-05-14 08:40 | XR ---
EXAMINATION TYPE: XR chest 1V portable DATE OF EXAM: 05/14/2023 COMPARISON: 05/13/2023 HISTORY: Postop TECHNIQUE: Single frontal view of the chest is obtained. FINDINGS: Heart is enlarged and there is bilateral consolidation with small effusion. Postsurgical c hange. Mediastinal drain and chest tubes are noted with no sizable pneumothorax. [place] are stable. Cannot exclude mild underlying venous congestion IMPRESSION: 1. Bilateral consolidation and small effusion. 2. Cardiomegaly with postoperative changes.
[2023-05-14] MEDS: HEPARIN SODIUM,PORCINE/PF 5,000 UNIT/0.5 ML SYRINGE SQ SCH ×3 (08:41→23:44)
[2023-05-14] MEDS: ASPIRIN 325 MG TAB PO SCH (08:42)
[2023-05-14] MEDS: CLOPIDOGREL 75 MG TAB PO SCH (08:42)
[2023-05-14] MEDS ORDERED: PANTOPRAZOLE 40 MG/10 ML VIAL IVP SCH (09:00)
[2023-05-14] MEDS ORDERED: MAGNESIUM HYDROXIDE 2,400 MG/30 ML CUP PO PRN (09:00)
[2023-05-14] MEDS ORDERED: bisacodyL 10 MG SUPP RECTAL PRN (09:00)
[2023-05-14] MEDS: METOPROLOL TARTRATE 12.5 MG TAB PO SCH ×2 (09:08→20:30)
[2023-05-14 09:09] LABS: Glucose,Whole Blood 191 mg/dL (70-110)
[2023-05-14] MEDS ORDERED: ALBUMIN HUMAN 5% 250 ML in EMPTY BAG 1 BAG IVPB STA (09:19)
[2023-05-14 09:28] LABS: Amorphous Sediment,Urine Occasional /hpf; Appearance,Urine Turbid (Clear); Bilirubin,Urine Negative (Negative); Blood,Urine Large (Negative); Color,Urine Dark Red; Glucose,Urine (UA) Negative (Negative); Ketones,Urine Trace (Negative); Leukocyte Esterase,Urine Moderate (Negative); Nitrite,Urine Negative (Negative); PH, Urine 5.5 (5.0-8.0); Protein,Urine 2+ (Negative); RBC,Urine >182 /hpf (0-5); Urobilinogen,Urine <2.0 mg/dL (<2.0); WBC,Urine 131 /hpf (0-5)
[2023-05-14 09:46] LABS: Specific Gravity,Urine 1.019 (1.001-1.035)
[2023-05-14 10:23] LABS: Glucose,Whole Blood 190 mg/dL (70-110)
--- NOTE | 2023-05-14 10:49 | P.PN ---
Subjective Progress Note Date: 05/14/23 Principal diagnosis: Status post CABG, postoperative day #1 This is a 68-year-old male patient with a known history of coronary artery disease, hypertension, hyperlipidemia, diabetes mellitus, benign prostatic hyperplasia, pulmonary embolism anticoagulated with Eliquis. He also has a history of COVID-19 infection and subsequent CVA felt to be secondary to hypercoagulability. In March 2023 at undergone cardiac catheterization that revealed a chronic total occlusion of the right coronary artery which fills by collaterals circulation, chronic total occlusion of the mid LAD by the bifurcation of the large diagonal branch with flush occlusion. The LAD fills by ipsilateral collaterals. He was recommended coronary artery bypass grafting. Echocardiogram revealed moderate LV dysfunction with ejection fraction of 40- 45%. He was brought in today for an elective surgery. He had undergone an off- pump coronary artery bypass grafting 2 with the left internal thoracic artery to the left anterior descending artery, saphenous vein graft from the aorta to the posterior descending artery. Left atrial appendage ligation with a 35mm Atriclip. He is seen postoperatively in the intensive care unit. He is intubated on the mechanical ventilator and assist control mode with a rate of 14, tidal volume 500, FiO2 50% and a PEEP of 10. Initial arterial blood gases revealed a PaO2 of 387, P CO2 of 41 and a pH of 7.31 on 100% FiO2. Sodium 137. Potassium 4.3. Bicarb 20. BUN 39. Creatinine 2.33. Glucose 154. Calcium 7.9. Magnesium 2.4. AST 21. ALT 16. Albumin 3.0. He is currently on dopamine at 2 mcg/kg/m. Milrinone at 0.3 mcg/kg/m. Norepinephrine at 0.06 mcg/kg/m propofol currently on hold. Insulin drip at 6 units per hour. Lactated Ringer's at 50 MLS per hour. PA pressure 43/19. Cardiac output 5.9. Cardiac index 2.8. Backup pacing at a rate of 50 bpm. Right and left pleural chest tubes in place with a small leak. Mediastinal chest tubes 2. Just x-ray reveals postsurgical changes. Bilateral chest tubes without evidence of sizable pneumothorax. [place]-Misha catheter, mediastinal drain, endotracheal and gastric tube secured in place. Patient was reevaluated today on 05/14/2023, patient is doing well, he is postoperative day #1, patient is requiring multiple drips including dopamine at 3 mcg/kg/m, norepinephrine at 0.02 mcg/kg/m, he is on insulin at 4 units per hour, and lactated Ringer's at 40 mL per hour. Cardiac index is 2.2. Cardiac output is 4.5. Urine output is marginal between 15-20 mL per hour. Patient is on 1 L nasal cannula, does not seem to be in distress, sitting at a bedside chair. Chest x-ray showed minimal basilar atelectasis and small pleural effusions with cardiomegaly and postoperative changes. WBC count is 12.9 hemoglobin is 10.7. Basic metabolic profile is normal however his BUN is 43 creatinine is rising up to 2.83, baseline yesterday was 2.33. Patient is achieving about 1000 mL via incentive spirometry Objective - Vital Signs Vital signs: Vital Signs Temp 98.6 F 05/14/23 08:00 Pulse 73 05/14/23 09:00 Resp 18 05/14/23 09:00 BP 126/57 05/14/23 09:00 Pulse Ox 90 L 05/14/23 09:00 FiO2 50 05/13/23 15:13 Intake & Output 05/13/23 05/14/23 05/14/23 18:59 06:59 18:59 Intake Total 2412.874 1980.324 511.231 Output Total 1525 815 138 Balance 691.210 0771.324 373.231 Weight 107.6 kg 107.6 kg Intake: IV 177 931 173 Cardiac output 109 250 30 Lactated Ringers 1,000 ml 600 75 @ 50 mls/hr IV .Q20H [facility] Rx#:[id number] ceFAZolin 2 gm In Sodium 50 Chloride 0.9% 50 ml @ 100 mls/hr IVPB Q8HR [facility] Rx# :[id number] pressure bags 65 81 18 Intake, IV Titration 2235.874 149.324 38.231 Amount ACETAMINOPHEN IV (For NPO 200 ) 1,000 mg In Empty Bag 1 bag @ 400 mls/hr IVPB Q6H [facility] Rx#:[id number] Albumin Human 5% 250 ml @ 100 0 mls/hr IVPB .[facility] Rx#:[id number] Albumin Human 5% 250 ml @ 1500 0 mls/hr IVPB .[facility] Rx#:[id number] Insulin Regular 100 unit 21.387 42.748 17.970 In Sodium Chloride 0.9% 100 ml @ Per Protocol IV .Q0M [facility] Rx#:[id number] Lactated Ringers 1,000 ml 200 50 @ 50 mls/hr IV .Q20H [facility] Rx#:[id number] Milrinone-D5w Pmx 20 mg 25.952 In Dextrose/Water 1 100ml .bag @ 0.25 MCG/KG/MIN 7. 77 mls/hr IV .[id number] [facility] Rx#:[id number] Nitroglycerin-D5w Pmx 50 0.525 mg In Dextrose/Water 1 250ml.bag @ 5 MCG/MIN 1.5 mls/hr IV .Q24H [facility] Rx#: [id number] Norepinephrine 4 mg In 135.057 56.576 20.261 Sodium Chloride 0.9% 250 ml @ 0.04 MCG/KG/MIN 15. 789 mls/hr IV .Q16H6M [facility] Rx#:[id number] ceFAZolin 2 gm In Sodium 50 Chloride 0.9% 50 ml @ 100 mls/hr IVPB Q8HR [facility] Rx# :[id number] propofoL 1,000 mg In 2.953 Empty Bag 1 bag @ Titrate IV .Q0M [facility] Rx#: [id number] Oral 900 300 Output: Chest Tube Drainage 490 550 90 left and right pleural 240 440 80 mediastinal 250 110 10 Urine 435 265 48 Estimated Blood Loss 600 Other: Voiding Method Indwelling Catheter Indwelling Catheter ABP, PAP, CO, CI - Last Documented Arterial Blood Pressure 92/38 Pulmonary Artery Pressure 26/8 Cardiac Output 4.5 Cardiac Index 2.2 - Exam Physical Exam: Revealed a 68-year-old white male in no distress. On 1 L nasal cannula Head: Atraumatic, normocephalic. HEENT:[Neck is supple.] [No neck masses.] [No thyromegaly.] [No JVD.] Chest: [Crackles at the bases no rhonchi and no wheezes Cardiac Exam: [Normal S1 and S2, no S3 gallop, no murmur.] Abdomen: [Soft, nontender, no megaly, no rebound, no guarding, normal bowel sounds.] Extremities: [No clubbing, trace of bipedal edema, no cyanosis.] Neurological Exam: [No focal neurologic deficit.] Alert oriented 3 Psychiatric: Normal mood affect and normal mental status examination. - Labs CBC & Chem 7: 05/14/23 04:00 05/14/23 04:00 Labs: Abnormal Lab Results - Last 24 Hours (Table) 05/04/23 05/13/23 05/13/23 Range/Units 09:01 08:33 09:48 WBC (3.8-10.6) k/uL RBC (4.30-5.90) m/uL Hgb (13.0-17.5) gm/dL Hct (39.0-53.0) % Plt Count (150-450) k/uL Neutrophils # (1.3-7.7) k/uL Lymphocytes # (1.0-4.8) k/uL Monocytes # (0-1.0) k/uL Eosinophils # (0-0.7) k/uL ABG pH 7.32 L (7.35-7.45) ABG pO2 147 H 141 H (83-108) mmHg ABG HCO3 (21-25) mmol/L ABG O2 Saturation 98.6 H 98.7 H (94-97) % ABG Glucose 188 H 163 H (75-99) mg/dL ABG Lactic Acid (0.5-1.6) mmol/L Hemoglobin 12.9 L 12.7 L (13.0-17.5) gm/dL Carbon Dioxide (22-30) mmol/L BUN (9-20) mg/dL Creatinine (0.66-1.25) mg/dL Glucose (74-99) mg/dL POC Glucose (mg/dL) (70-110) mg/dL Calcium (8.4-10.2) mg/dL Ionized Calcium Sagrario (4.5-5.3) mg/dL Magnesium (1.6-2.3) mg/dL Alkaline Phosphatase (38-126) U/L Total Protein (6.3-8.2) g/dL Albumin (3.5-5.0) g/dL Arterial Blood Glucose 188 H 163 H (75-99) mg/dL Urine Protein (Negative) Urine Ketones (Negative) Urine Blood (Negative) Ur Leukocyte Esterase (Negative) Urine RBC (0-5) /hpf Urine WBC (0-5) /hpf Amorphous Sediment (None) /hpf Crossmatch See Detail 05/13/23 05/13/23 05/13/23 Range/Units 10:16 10:52 11:29 WBC (3.8-10.6) k/uL RBC (4.30-5.90) m/uL Hgb (13.0-17.5) gm/dL Hct (39.0-53.0) % Plt Count (150-450) k/uL Neutrophils # (1.3-7.7) k/uL Lymphocytes # (1.0-4.8) k/uL Monocytes # (0-1.0) k/uL Eosinophils # (0-0.7) k/uL ABG pH 7.34 L 7.34 L (7.35-7.45) ABG pO2 170 H 172 H 133 H (83-108) mmHg ABG HCO3 (21-25) mmol/L ABG O2 Saturation 98.8 H 98.9 H 98.7 H (94-97) % ABG Glucose 150 H 126 H 105 H (75-99) mg/dL ABG Lactic Acid 2.1 H 2.7 H* (0.5-1.6) mmol/L Hemoglobin 12.7 L 12.3 L 12.0 L (13.0-17.5) gm/dL Carbon Dioxide (22-30) mmol/L BUN (9-20) mg/dL Creatinine (0.66-1.25) mg/dL Glucose (74-99) mg/dL POC Glucose (mg/dL) (70-110) mg/dL Calcium (8.4-10.2) mg/dL Ionized Calcium Sagrario (4.5-5.3) mg/dL Magnesium (1.6-2.3) mg/dL Alkaline Phosphatase (38-126) U/L Total Protein (6.3-8.2) g/dL Albumin (3.5-5.0) g/dL Arterial Blood Glucose 150 H 126 H 105 H (75-99) mg/dL Urine Protein (Negative) Urine Ketones (Negative) Urine Blood (Negative) Ur Leukocyte Esterase (Negative) Urine RBC (0-5) /hpf Urine WBC (0-5) /hpf Amorphous Sediment (None) /hpf Crossmatch 05/13/23 05/13/23 05/13/23 Range/Units 12:19 12:20 12:20 WBC 24.4 H (3.8-10.6) k/uL RBC 3.85 L (4.30-5.90) m/uL Hgb 11.6 L (13.0-17.5) gm/dL Hct 36.6 L (39.0-53.0) % Plt Count (150-450) k/uL Neutrophils # 18.9 H (1.3-7.7) k/uL Lymphocytes # (1.0-4.8) k/uL Monocytes # 1.5 H (0-1.0) k/uL Eosinophils # 0.8 H (0-0.7) k/uL ABG pH (7.35-7.45) ABG pO2 (83-108) mmHg ABG HCO3 (21-25) mmol/L ABG O2 Saturation (94-97) % ABG Glucose (75-99) mg/dL ABG Lactic Acid (0.5-1.6) mmol/L Hemoglobin (13.0-17.5) gm/dL Carbon Dioxide 20 L (22-30) mmol/L BUN 39 H (9-20) mg/dL Creatinine 2.33 H (0.66-1.25) mg/dL Glucose 154 H (74-99) mg/dL POC Glucose (mg/dL) 129 H (70-110) mg/dL Calcium 7.9 L (8.4-10.2) mg/dL Ionized Calcium Sagrario (4.5-5.3) mg/dL Magnesium 2.4 H (1.6-2.3) mg/dL Alkaline Phosphatase (38-126) U/L Total Protein 5.5 L (6.3-8.2) g/dL Albumin 3.0 L (3.5-5.0) g/dL Arterial Blood Glucose (75-99) mg/dL Urine Protein (Negative) Urine Ketones (Negative) Urine Blood (Negative) Ur Leukocyte Esterase (Negative) Urine RBC (0-5) /hpf Urine WBC (0-5) /hpf Amorphous Sediment (None) /hpf Crossmatch 05/13/23 05/13/23 05/13/23 Range/Units 12:48 14:17 15:06 WBC (3.8-10.6) k/uL RBC (4.30-5.90) m/uL Hgb (13.0-17.5) gm/dL Hct (39.0-53.0) % Plt Count (150-450) k/uL Neutrophils # (1.3-7.7) k/uL Lymphocytes # (1.0-4.8) k/uL Monocytes # (0-1.0) k/uL Eosinophils # (0-0.7) k/uL ABG pH 7.31 L (7.35-7.45) ABG pO2 387 H (83-108) mmHg ABG HCO3 (21-25) mmol/L ABG O2 Saturation 99.6 H (94-97) % ABG Glucose (75-99) mg/dL ABG Lactic Acid (0.5-1.6) mmol/L Hemoglobin (13.0-17.5) gm/dL Carbon Dioxide (22-30) mmol/L BUN (9-20) mg/dL Creatinine (0.66-1.25) mg/dL Glucose (74-99) mg/dL POC Glucose (mg/dL) 223 H 257 H (70-110) mg/dL Calcium (8.4-10.2) mg/dL Ionized Calcium Sagrario (4.5-5.3) mg/dL Magnesium (1.6-2.3) mg/dL Alkaline Phosphatase (38-126) U/L Total Protein (6.3-8.2) g/dL Albumin (3.5-5.0) g/dL Arterial Blood Glucose (75-99) mg/dL Urine Protein (Negative) Urine Ketones (Negative) Urine Blood (Negative) Ur Leukocyte Esterase (Negative) Urine RBC (0-5) /hpf Urine WBC (0-5) /hpf Amorphous Sediment (None) /hpf Crossmatch 05/13/23 05/13/23 05/13/23 Range/Units 15:10 15:42 16:05 WBC 13.8 H (3.8-10.6) k/uL RBC 3.23 L (4.30-5.90) m/uL Hgb 10.2 L (13.0-17.5) gm/dL Hct 30.7 L (39.0-53.0) % Plt Count (150-450) k/uL Neutrophils # 12.4 H (1.3-7.7) k/uL Lymphocytes # (1.0-4.8) k/uL Monocytes # (0-1.0) k/uL Eosinophils # (0-0.7) k/uL ABG pH 7.29 L (7.35-7.45) ABG pO2 (83-108) mmHg ABG HCO3 18 L (21-25) mmol/L ABG O2 Saturation 97.4 H (94-97) % ABG Glucose (75-99) mg/dL ABG Lactic Acid (0.5-1.6) mmol/L Hemoglobin (13.0-17.5) gm/dL Carbon Dioxide (22-30) mmol/L BUN (9-20) mg/dL Creatinine (0.66-1.25) mg/dL Glucose (74-99) mg/dL POC Glucose (mg/dL) 218 H (70-110) mg/dL Calcium (8.4-10.2) mg/dL Ionized Calcium Sagrario (4.5-5.3) mg/dL Magnesium (1.6-2.3) mg/dL Alkaline Phosphatase (38-126) U/L Total Protein (6.3-8.2) g/dL Albumin (3.5-5.0) g/dL Arterial Blood Glucose (75-99) mg/dL Urine Protein (Negative) Urine Ketones (Negative) Urine Blood (Negative) Ur Leukocyte Esterase (Negative) Urine RBC (0-5) /hpf Urine WBC (0-5) /hpf Amorphous Sediment (None) /hpf Crossmatch 05/13/23 05/13/23 05/13/23 Range/Units 17:11 18:04 18:05 WBC 16.8 H (3.8-10.6) k/uL RBC 3.34 L (4.30-5.90) m/uL Hgb 11.4 L (13.0-17.5) gm/dL Hct 31.3 L (39.0-53.0) % Plt Count (150-450) k/uL Neutrophils # 15.0 H (1.3-7.7) k/uL Lymphocytes # 0.7 L (1.0-4.8) k/uL Monocytes # (0-1.0) k/uL Eosinophils # (0-0.7) k/uL ABG pH (7.35-7.45) ABG pO2 (83-108) mmHg ABG HCO3 (21-25) mmol/L ABG O2 Saturation (94-97) % ABG Glucose (75-99) mg/dL ABG Lactic Acid (0.5-1.6) mmol/L Hemoglobin (13.0-17.5) gm/dL Carbon Dioxide (22-30) mmol/L BUN (9-20) mg/dL Creatinine (0.66-1.25) mg/dL Glucose (74-99) mg/dL POC Glucose (mg/dL) 195 H 185 H (70-110) mg/dL Calcium (8.4-10.2) mg/dL Ionized Calcium Sagrario (4.5-5.3) mg/dL Magnesium (1.6-2.3) mg/dL Alkaline Phosphatase (38-126) U/L Total Protein (6.3-8.2) g/dL Albumin (3.5-5.0) g/dL Arterial Blood Glucose (75-99) mg/dL Urine Protein (Negative) Urine Ketones (Negative) Urine Blood (Negative) Ur Leukocyte Esterase (Negative) Urine RBC (0-5) /hpf Urine WBC (0-5) /hpf Amorphous Sediment (None) /hpf Crossmatch 05/13/23 05/13/23 05/13/23 Range/Units 19:01 19:57 20:54 WBC (3.8-10.6) k/uL RBC (4.30-5.90) m/uL Hgb (13.0-17.5) gm/dL Hct (39.0-53.0) % Plt Count (150-450) k/uL Neutrophils # (1.3-7.7) k/uL Lymphocytes # (1.0-4.8) k/uL Monocytes # (0-1.0) k/uL Eosinophils # (0-0.7) k/uL ABG pH (7.35-7.45) ABG pO2 (83-108) mmHg ABG HCO3 (21-25) mmol/L ABG O2 Saturation (94-97) % ABG Glucose (75-99) mg/dL ABG Lactic Acid (0.5-1.6) mmol/L Hemoglobin (13.0-17.5) gm/dL Carbon Dioxide (22-30) mmol/L BUN (9-20) mg/dL Creatinine (0.66-1.25) mg/dL Glucose (74-99) mg/dL POC Glucose (mg/dL) 163 H 151 H 146 H (70-110) mg/dL Calcium (8.4-10.2) mg/dL Ionized Calcium Sagrario (4.5-5.3) mg/dL Magnesium (1.6-2.3) mg/dL Alkaline Phosphatase (38-126) U/L Total Protein (6.3-8.2) g/dL Albumin (3.5-5.0) g/dL Arterial Blood Glucose (75-99) mg/dL Urine Protein (Negative) Urine Ketones (Negative) Urine Blood (Negative) Ur Leukocyte Esterase (Negative) Urine RBC (0-5) /hpf Urine WBC (0-5) /hpf Amorphous Sediment (None) /hpf Crossmatch 05/13/23 05/13/23 05/13/23 Range/Units 21:57 23:01 23:51 WBC (3.8-10.6) k/uL RBC (4.30-5.90) m/uL Hgb (13.0-17.5) gm/dL Hct (39.0-53.0) % Plt Count (150-450) k/uL Neutrophils # (1.3-7.7) k/uL Lymphocytes # (1.0-4.8) k/uL Monocytes # (0-1.0) k/uL Eosinophils # (0-0.7) k/uL ABG pH (7.35-7.45) ABG pO2 (83-108) mmHg ABG HCO3 (21-25) mmol/L ABG O2 Saturation (94-97) % ABG Glucose (75-99) mg/dL ABG Lactic Acid (0.5-1.6) mmol/L Hemoglobin (13.0-17.5) gm/dL Carbon Dioxide (22-30) mmol/L BUN (9-20) mg/dL Creatinine (0.66-1.25) mg/dL Glucose (74-99) mg/dL POC Glucose (mg/dL) 143 H 133 H 124 H (70-110) mg/dL Calcium (8.4-10.2) mg/dL Ionized Calcium Sagrario (4.5-5.3) mg/dL Magnesium (1.6-2.3) mg/dL Alkaline Phosphatase (38-126) U/L Total Protein (6.3-8.2) g/dL Albumin (3.5-5.0) g/dL Arterial Blood Glucose (75-99) mg/dL Urine Protein (Negative) Urine Ketones (Negative) Urine Blood (Negative) Ur Leukocyte Esterase (Negative) Urine RBC (0-5) /hpf Urine WBC (0-5) /hpf Amorphous Sediment (None) /hpf Crossmatch 05/14/23 05/14/23 05/14/23 Range/Units 00:56 02:11 02:57 WBC (3.8-10.6) k/uL RBC (4.30-5.90) m/uL Hgb (13.0-17.5) gm/dL Hct (39.0-53.0) % Plt Count (150-450) k/uL Neutrophils # (1.3-7.7) k/uL Lymphocytes # (1.0-4.8) k/uL Monocytes # (0-1.0) k/uL Eosinophils # (0-0.7) k/uL ABG pH (7.35-7.45) ABG pO2 (83-108) mmHg ABG HCO3 (21-25) mmol/L ABG O2 Saturation (94-97) % ABG Glucose (75-99) mg/dL ABG Lactic Acid (0.5-1.6) mmol/L Hemoglobin (13.0-17.5) gm/dL Carbon Dioxide (22-30) mmol/L BUN (9-20) mg/dL Creatinine (0.66-1.25) mg/dL Glucose (74-99) mg/dL POC Glucose (mg/dL) 124 H 124 H 122 H (70-110) mg/dL Calcium (8.4-10.2) mg/dL Ionized Calcium Sagrario (4.5-5.3) mg/dL Magnesium (1.6-2.3) mg/dL Alkaline Phosphatase (38-126) U/L Total Protein (6.3-8.2) g/dL Albumin (3.5-5.0) g/dL Arterial Blood Glucose (75-99) mg/dL Urine Protein (Negative) Urine Ketones (Negative) Urine Blood (Negative) Ur Leukocyte Esterase (Negative) Urine RBC (0-5) /hpf Urine WBC (0-5) /hpf Amorphous Sediment (None) /hpf Crossmatch 05/14/23 05/14/23 05/14/23 Range/Units 04:00 04:00 04:02 WBC 12.9 H (3.8-10.6) k/uL RBC 3.21 L (4.30-5.90) m/uL Hgb 10.7 L (13.0-17.5) gm/dL Hct 29.7 L (39.0-53.0) % Plt Count 143 L (150-450) k/uL Neutrophils # 11.1 H (1.3-7.7) k/uL Lymphocytes # 0.8 L (1.0-4.8) k/uL Monocytes # (0-1.0) k/uL Eosinophils # (0-0.7) k/uL ABG pH (7.35-7.45) ABG pO2 (83-108) mmHg ABG HCO3 (21-25) mmol/L ABG O2 Saturation (94-97) % ABG Glucose (75-99) mg/dL ABG Lactic Acid (0.5-1.6) mmol/L Hemoglobin (13.0-17.5) gm/dL Carbon Dioxide 21 L (22-30) mmol/L BUN 43 H (9-20) mg/dL Creatinine 2.83 H (0.66-1.25) mg/dL Glucose 105 H (74-99) mg/dL POC Glucose (mg/dL) 116 H (70-110) mg/dL Calcium 7.7 L (8.4-10.2) mg/dL Ionized Calcium Sagrario 4.3 L (4.5-5.3) mg/dL Magnesium (1.6-2.3) mg/dL Alkaline Phosphatase 30 L (38-126) U/L Total Protein 5.6 L (6.3-8.2) g/dL Albumin (3.5-5.0) g/dL Arterial Blood Glucose (75-99) mg/dL Urine Protein (Negative) Urine Ketones (Negative) Urine Blood (Negative) Ur Leukocyte Esterase (Negative) Urine RBC (0-5) /hpf Urine WBC (0-5) /hpf Amorphous Sediment (None) /hpf Crossmatch 05/14/23 05/14/23 05/14/23 Range/Units 04:55 05:55 06:55 WBC (3.8-10.6) k/uL RBC (4.30-5.90) m/uL Hgb (13.0-17.5) gm/dL Hct (39.0-53.0) % Plt Count (150-450) k/uL Neutrophils # (1.3-7.7) k/uL Lymphocytes # (1.0-4.8) k/uL Monocytes # (0-1.0) k/uL Eosinophils # (0-0.7) k/uL ABG pH (7.35-7.45) ABG pO2 (83-108) mmHg ABG HCO3 (21-25) mmol/L ABG O2 Saturation (94-97) % ABG Glucose (75-99) mg/dL ABG Lactic Acid (0.5-1.6) mmol/L Hemoglobin (13.0-17.5) gm/dL Carbon Dioxide (22-30) mmol/L BUN (9-20) mg/dL Creatinine (0.66-1.25) mg/dL Glucose (74-99) mg/dL POC Glucose (mg/dL) 111 H 131 H 157 H (70-110) mg/dL Calcium (8.4-10.2) mg/dL Ionized Calcium Sagrario (4.5-5.3) mg/dL Magnesium (1.6-2.3) mg/dL Alkaline Phosphatase (38-126) U/L Total Protein (6.3-8.2) g/dL Albumin (3.5-5.0) g/dL Arterial Blood Glucose (75-99) mg/dL Urine Protein (Negative) Urine Ketones (Negative) Urine Blood (Negative) Ur Leukocyte Esterase (Negative) Urine RBC (0-5) /hpf Urine WBC (0-5) /hpf Amorphous Sediment (None) /hpf Crossmatch 05/14/23 05/14/23 05/14/23 Range/Units 08:05 08:47 09:07 WBC (3.8-10.6) k/uL RBC (4.30-5.90) m/uL Hgb (13.0-17.5) gm/dL Hct (39.0-53.0) % Plt Count (150-450) k/uL Neutrophils # (1.3-7.7) k/uL Lymphocytes # (1.0-4.8) k/uL Monocytes # (0-1.0) k/uL Eosinophils # (0-0.7) k/uL ABG pH (7.35-7.45) ABG pO2 (83-108) mmHg ABG HCO3 (21-25) mmol/L ABG O2 Saturation (94-97) % ABG Glucose (75-99) mg/dL ABG Lactic Acid (0.5-1.6) mmol/L Hemoglobin (13.0-17.5) gm/dL Carbon Dioxide (22-30) mmol/L BUN (9-20) mg/dL Creatinine (0.66-1.25) mg/dL Glucose (74-99) mg/dL POC Glucose (mg/dL) 149 H 191 H (70-110) mg/dL Calcium (8.4-10.2) mg/dL Ionized Calcium Sagrario (4.5-5.3) mg/dL Magnesium (1.6-2.3) mg/dL Alkaline Phosphatase (38-126) U/L Total Protein (6.3-8.2) g/dL Albumin (3.5-5.0) g/dL Arterial Blood Glucose (75-99) mg/dL Urine Protein 2+ H (Negative) Urine Ketones Trace H (Negative) Urine Blood Large H (Negative) Ur Leukocyte Esterase Moderate H (Negative) Urine RBC >182 H (0-5) /hpf Urine WBC 131 H (0-5) /hpf Amorphous Sediment Occasional H (None) /hpf Crossmatch 05/14/23 Range/Units 10:21 WBC (3.8-10.6) k/uL RBC (4.30-5.90) m/uL Hgb (13.0-17.5) gm/dL Hct (39.0-53.0) % Plt Count (150-450) k/uL Neutrophils # (1.3-7.7) k/uL Lymphocytes # (1.0-4.8) k/uL Monocytes # (0-1.0) k/uL Eosinophils # (0-0.7) k/uL ABG pH (7.35-7.45) ABG pO2 (83-108) mmHg ABG HCO3 (21-25) mmol/L ABG O2 Saturation (94-97) % ABG Glucose (75-99) mg/dL ABG Lactic Acid (0.5-1.6) mmol/L Hemoglobin (13.0-17.5) gm/dL Carbon Dioxide (22-30) mmol/L BUN (9-20) mg/dL Creatinine (0.66-1.25) mg/dL Glucose (74-99) mg/dL POC Glucose (mg/dL) 190 H (70-110) mg/dL Calcium (8.4-10.2) mg/dL Ionized Calcium [place] (4.5-5.3) mg/dL Magnesium (1.6-2.3) mg/dL Alkaline Phosphatase (38-126) U/L Total Protein (6.3-8.2) g/dL Albumin (3.5-5.0) g/dL Arterial Blood Glucose (75-99) mg/dL Urine Protein (Negative) Urine Ketones (Negative) Urine Blood (Negative) Ur Leukocyte Esterase (Negative) Urine RBC (0-5) /hpf Urine WBC (0-5) /hpf Amorphous Sediment (None) /hpf Crossmatch Assessment and Plan Assessment: Impression: Status post CABG, patient had off-pump coronary artery bypass grafting 2 with a left internal thoracic artery to the left anterior descending artery, saphenous vein graft from the aorta to the posterior descending artery. Left atrial appendage ligation. Postoperative day #1 Acute on chronic kidney disease Ischemic cardiomyopathy and LV dysfunction with ejection fraction 40-45% Type 2 diabetes with diabetic nephropathy Benign essential hypertension History of CVA History of pulmonary embolism normally on eliquis. Recommendation: Continue present supportive care measures Continue incentive spirometry Continue aspirin and Plavix beta blockers and statins Early ambulation Continue and titrate present norepinephrine and dopamine as well as insulin. Continue to monitor renal profile closely and renal output closely Discontinue unnecessary catheters and lines. We will continue to follow Time with Patient: Less than 30
[2023-05-14] MEDS ORDERED: SODIUM CHLORIDE 0.9% 500 ML 500 ML IV ONE (10:51)
--- NOTE | 2023-05-14 11:07 | P.NPCON ---
History of Present Illness - Reason for Consult acute renal failure - History of Present Illness Patient is a 68-year-old male with history of hypertension, type 2 diabetes, BPH, coronary artery disease and history of PE. Patient is admitted to the hospital for coronary artery bypass surgery which was performed yesterday 05/13/2023. Patient has a history of chronic kidney disease but does not see a crystal lapper. Serum creatinine was 2.3 yesterday and increased to 2.8 this morning. Review of previous labs shows a serum creatinine ranging from 2-2.2 since September 2022. Urine output has been about 10-15 mL an hour. CVP is low at 4. Patient was started on dopamine. Blood pressure is on the lower side with systolic around 100-10 2 mmHg. Patient is sitting up in a bedside chair. He denies any significant complaints except for pain. 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 Past Anesthesia/Blood Transfusion Reactions: No Reported Reaction Past Alcohol Use History: None Reported - Past Family History Mother Family Medical History: No Reported History Father Family Medical History: Myocardial Infarction ([place]) Additional Family Medical History / Comment(s): massive [place] @53 Medications and Allergies Home Medications Medication Instructions Recorded Confirmed Type Furosemide [Lasix] 20 mg PO DAILY 05/20/22 05/13/23 History Rosuvastatin [Crestor] 40 mg PO DAILY 05/20/22 05/13/23 History Sacubitril/Valsartan [Entresto 24 1 tab PO BID-W/MEALS 05/20/22 05/13/23 History mg-26 mg Tablet] Spironolactone [Aldactone] 25 mg PO PC-LUNCH 05/20/22 05/13/23 History carvediloL [Coreg] 6.25 mg PO BID-W/MEALS 05/20/22 05/13/23 History metFORMIN HCL 1,000 mg PO BID-W/MEALS 05/20/22 05/13/23 History Apixaban [Eliquis] 5 mg PO BID #0 05/25/22 05/13/23 Rx Aspirin 81 mg PO DAILY 30 Days #30 tab 05/25/22 05/13/23 Rx Liraglutide [Victoza 2-Javon] 1.2 mg SQ DAILY 04/13/23 05/13/23 History Allergies Allergy/AdvReac Type Severity Reaction Status Date / Time atorvastatin [From Lipitor] Allergy Rash/Hives Verified 05/13/23 05:54 Physical Exam Vitals: Vital Signs Temp Pulse Resp BP Pulse Ox FiO2 05/14/23 09:00 73 18 126/57 90 L 05/14/23 08:45 72 18 127/78 93 L 05/14/23 08:30 73 18 123/57 93 L 05/14/23 08:15 74 23 118/58 93 L 05/14/23 08:01 73 05/14/23 08:00 98.6 F 72 24 117/58 93 L 05/14/23 07:46 70 05/14/23 07:45 76 19 122/58 91 L 05/14/23 07:30 73 19 83/51 92 L 05/14/23 07:15 75 8 L 105/54 91 L 05/14/23 07:00 74 21 123/67 92 L 05/14/23 06:45 75 17 109/54 95 05/14/23 06:30 75 13 116/52 95 05/14/23 06:15 73 21 96/51 95 05/14/23 06:00 74 14 103/50 95 05/14/23 05:45 75 24 117/54 95 05/14/23 05:30 75 14 139/65 05/14/23 05:15 75 18 94 L 05/14/23 05:00 72 13 114/54 94 L 05/14/23 04:45 70 16 107/57 94 L 05/14/23 04:30 71 17 108/58 94 L 05/14/23 04:15 70 19 113/53 94 L 05/14/23 04:00 98.2 F 73 12 96/51 94 L 05/14/23 03:45 73 18 115/52 94 L 05/14/23 03:30 69 21 101/58 94 L 05/14/23 03:15 71 16 107/56 94 L 05/14/23 03:00 72 15 105/51 94 L 05/14/23 02:45 75 20 108/54 94 L 05/14/23 02:30 74 23 103/55 94 L 05/14/23 02:15 73 20 97/58 95 05/14/23 02:00 77 22 101/58 94 L 05/14/23 01:45 75 13 107/60 93 L 05/14/23 01:30 76 19 109/54 94 L 05/14/23 01:15 78 19 107/59 95 05/14/23 01:00 79 17 113/56 94 L 05/14/23 00:45 79 15 113/59 94 L 05/14/23 00:30 76 22 109/63 94 L 05/14/23 00:15 73 16 102/56 89 L 05/14/23 00:00 97.7 F 81 18 104/51 92 L 05/13/23 23:45 81 18 93/61 93 L 05/13/23 23:30 81 10 L 99/50 92 L 05/13/23 23:15 81 20 103/55 93 L 05/13/23 23:00 82 0 L 111/58 94 L 05/13/23 22:45 81 3 L 106/56 94 L 05/13/23 22:30 84 10 L 100/54 93 L 05/13/23 22:15 86 17 115/48 93 L 05/13/23 22:00 83 24 102/58 92 L 05/13/23 21:45 86 19 115/70 94 L 05/13/23 21:30 81 23 105/53 94 L 05/13/23 21:15 86 12 114/57 94 L 05/13/23 21:00 85 21 107/59 95 05/13/23 20:45 88 17 108/60 95 05/13/23 20:37 86 05/13/23 20:30 84 19 121/63 98 05/13/23 20:28 84 05/13/23 20:15 82 16 119/56 95 05/13/23 20:00 97.0 F L 82 18 105/50 96 05/13/23 19:45 85 17 109/56 95 05/13/23 19:30 89 14 102/54 93 L 05/13/23 19:15 90 20 101/51 92 L 05/13/23 19:00 92 21 110/55 92 L 05/13/23 18:45 86 19 99/50 91 L 05/13/23 18:30 86 17 102/55 91 L 05/13/23 18:15 90 25 H 105/55 93 L 05/13/23 18:00 86 24 104/58 92 L 05/13/23 17:45 87 10 L 108/52 91 L 05/13/23 17:30 88 26 H 100/52 91 L 05/13/23 17:15 87 7 L 107/52 91 L 05/13/23 17:00 86 4 L 105/52 92 L 05/13/23 16:45 89 0 L 94/50 92 L 05/13/23 16:30 85 6 L 105/50 94 L 05/13/23 16:15 85 12 96/46 95 05/13/23 16:00 96.4 F L 85 8 L 122/54 94 L 05/13/23 15:45 69 15 96/51 98 05/13/23 15:30 75 14 104/52 98 05/13/23 15:15 73 13 104/51 99 05/13/23 15:13 50 05/13/23 15:00 73 16 122/57 99 05/13/23 14:47 75 05/13/23 14:45 74 14 117/54 100 05/13/23 14:40 76 05/13/23 14:34 50 05/13/23 14:30 73 15 93/47 99 05/13/23 14:15 74 11 L 95/50 99 05/13/23 14:00 77 11 L 115/54 99 05/13/23 13:45 74 13 101/54 99 05/13/23 13:30 73 14 127/82 100 50 05/13/23 13:15 67 14 73/44 98 05/13/23 13:00 74 15 124/69 99 05/13/23 12:52 50 05/13/23 12:45 68 14 67/48 100 05/13/23 12:30 68 14 68/50 99 05/13/23 12:20 100 05/13/23 12:19 100 05/13/23 12:15 70 18 Intake and Output 05/13/23 05/14/23 05/14/23 22:59 06:59 14:59 Intake Total 9386.301 6055.514 511.231 Output Total 625 560 138 Balance 664.518 1793.514 373.231 Intake: IV 383 664 173 Cardiac output 170 160 30 Lactated Ringers 1,000 ml 150 450 75 @ 50 mls/hr IV .Q20H [facility] Rx#:[id number] ceFAZolin 2 gm In Sodium 50 Chloride 0.9% 50 ml @ 100 mls/hr IVPB Q8HR [facility] Rx# :[id number] pressure bags 63 54 18 Intake, IV Titration 1126.680 44.514 38.231 Amount ACETAMINOPHEN IV (For NPO 100 ) 1,000 mg In Empty Bag 1 bag @ 400 mls/hr IVPB Q6H [facility] Rx#:[id number] Albumin Human 5% 250 ml @ 100 0 mls/hr IVPB .[facility] Rx#:[id number] Albumin Human 5% 250 ml @ 500 0 mls/hr IVPB .[facility] Rx#:[id number] Insulin Regular 100 unit 42.580 21.555 17.970 In Sodium Chloride 0.9% 100 ml @ Per Protocol IV .Q0M [facility] Rx#:[id number] Lactated Ringers 1,000 ml 150 @ 50 mls/hr IV .Q20H [facility] Rx#:[id number] Milrinone-D5w Pmx 20 mg 25.952 In Dextrose/Water 1 100ml .bag @ 0.25 MCG/KG/MIN 7. 77 mls/hr IV .[id number] [facility] Rx#:[id number] Norepinephrine 4 mg In 158.148 22.959 20.261 Sodium Chloride 0.9% 250 ml @ 0.04 MCG/KG/MIN 15. 789 mls/hr IV .Q16H6M [facility] Rx#:[id number] ceFAZolin 2 gm In Sodium 50 Chloride 0.9% 50 ml @ 100 mls/hr IVPB Q8HR [facility] Rx# :[id number] Oral 900 300 Output: Chest Tube Drainage 475 360 90 left and right pleural 230 330 80 mediastinal 245 30 10 Urine 150 200 48 Other: Voiding Method Indwelling Catheter Indwelling Catheter Weight 107.6 kg 107.6 kg ABP, PAP, CO, CI - Last 8 Hours Arterial Blood Pressure 92/38 Arterial Blood Pressure 125/45 Arterial Blood Pressure 121/47 Arterial Blood Pressure 114/41 Arterial Blood Pressure 127/44 Arterial Blood Pressure 116/42 Arterial Blood Pressure 111/40 Arterial Blood Pressure 125/44 Arterial Blood Pressure 106/39 Arterial Blood Pressure 93/38 Arterial Blood Pressure 107/39 Arterial Blood Pressure 106/42 Arterial Blood Pressure 90/36 Arterial Blood Pressure 105/40 Arterial Blood Pressure 150/55 Arterial Blood Pressure 134/51 Arterial Blood Pressure 126/45 Arterial Blood Pressure 117/44 Arterial Blood Pressure 117/43 Arterial Blood Pressure 111/41 Arterial Blood Pressure 113/41 Arterial Blood Pressure 110/42 Arterial Blood Pressure 116/43 Arterial Blood Pressure 105/41 Arterial Blood Pressure 108/43 Pulmonary Artery Pressure 26/8 Pulmonary Artery Pressure 29/7 Pulmonary Artery Pressure 35/10 Pulmonary Artery Pressure 29/8 Pulmonary Artery Pressure 30/6 Pulmonary Artery Pressure 34/9 Pulmonary Artery Pressure 37/8 Pulmonary Artery Pressure 39/9 Pulmonary Artery Pressure 40/11 Pulmonary Artery Pressure 38/10 Pulmonary Artery Pressure 31/7 Pulmonary Artery Pressure 30/8 Pulmonary Artery Pressure 30/9 Pulmonary Artery Pressure 36/12 Pulmonary Artery Pressure 39/15 Pulmonary Artery Pressure 38/13 Pulmonary Artery Pressure 35/11 Pulmonary Artery Pressure 36/11 Pulmonary Artery Pressure 36/11 Pulmonary Artery Pressure 35/10 Pulmonary Artery Pressure 38/12 Pulmonary Artery Pressure 40/13 Pulmonary Artery Pressure 31/10 Pulmonary Artery Pressure 37/14 Cardiac Output 4.5 Cardiac Output 4.5 Cardiac Output 4.8 Cardiac Output 4.5 Cardiac Output 3.9 Cardiac Index 2.2 Cardiac Index 2.2 Cardiac Index 2.3 Cardiac Index 2.2 Cardiac Index 1.9 Awake, comfortable, in no acute distress Examination of the heart S1 and S2 Examination lungs bilateral breath sounds are heard Chest tubes are noted Examination lower extremity shows no significant edema [employer] exam grossly intact Results - Lab Results Most recent lab results ABG pH 7.29 (7.35-7.45) L 05/13/23 15:42 ABG pCO2 37 mmHg (35-45) 05/13/23 15:42 ABG pO2 99 mmHg (83-108) 05/13/23 15:42 ABG HCO3 18 mmol/L (21-25) L 05/13/23 15:42 ABG O2 Saturation 97.4 % (94-97) H 05/13/23 15:42 Calcium 7.7 mg/dL (8.4-10.2) L 05/14/23 04:00 Magnesium 2.1 mg/dL (1.6-2.3) 05/14/23 04:00 05/14/23 04:00 05/14/23 04:00 Assessment and Plan Assessment: 1. Acute kidney injury, hemodynamic ATN with borderline urine output. Blood pressure is on the lower side x-ray with midodrine. Consider fluid bolus as well as blood pressure is low and CVP is low as well. No nephrotoxic agents on board. UA shows 2+ protein and large blood with WBCs 131. 2. Status post coronary artery bypass surgery postop day #1 3. Coronary artery disease with ejection fraction 40-45%. 4. History of PE maintained on a liquid is prior to admission 5. Chronic kidney disease NKF stage IV with baseline creatinine around 2 mg/dL since September 2022. Etiology is likely diabetic kidney disease. UA shows 2+ protein 6. Pyuria rule out UTI Plan: Agree with midodrine Consider fluid bolus Check urine culture Repeat labs in a.m. Continue to avoid nephrotoxic agents. Patient needs to follow-up as outpatient for CKD. Thank you for the consultation. We will continue to follow the patient with you during his hospitalization
[2023-05-14 11:15] LABS: Glucose,Whole Blood 172 mg/dL (70-110)
--- NOTE | 2023-05-14 11:55 | P.PN ---
Subjective Progress Note Date: 05/14/23 Principal diagnosis: Two-vessel coronary artery disease. Past medical history significant for nonischemic cardiomyopathy with an ejection fraction of 25-30% which improved to an ejection fraction of 45-50% with intense medical therapy, history of left ventricular thrombus on transthoracic 2-D echocardiogram completed on 05/23/2023 which was organized and did did not appear acute, history of pulmonary embolus on eliquis on an outpatient basis, hypertension, diabetes mellitus, history of CVA with some residual right-sided weakness, COVID-19 infection in early 2021, acute on chronic kidney disease with a baseline creatinine of 2.0, and prostate disorder. POD #1 Off pump coronary artery bypass grafting x 2. Left internal thoracic artery (in-situ) to left anterior descending artery, saphenous vein from aorta to posterior descending artery, Endoscopic right greater saphenous vein harvest, Left atrial appendage ligation using 35mm AtriClip, Graft flow measurements using the [employer]-Stim flow meter system, and an intraoperative transesophageal echocardiogram performed by anesthesia. Postoperative acute blood loss anemia and thrombocytopenia, expected given hemodilution. The patient was seen and examined at his bedside today in the intensive care unit. Currently he is sitting up to the bedside chair, is awake, alert, oriented 3 and is in no acute distress. He was successfully extubated yesterday afternoon at 3:55 PM, currently is on 1 L nasal cannula with oxygen saturations 95% and he is achieving 1000 mL on his incentive spirometry with encouragement. Bedside telemetry showing normal sinus rhythm heart rate 75. The patient did have some hypotension yesterday requiring norepinephrine drip, currently the norepinephrine drip is running at 0.02 mcg/kg/m. Patient also had some low urine output and was started on dopamine 3 mcg/kg/m. Right IJ Cordis and Iliff-Misha catheter remains in place with current hemodynamic showing a cardiac output 4.5, cardiac index 2.2, SVR 870, PA pressures 37/7, and CVP 4 mmHg. Mediastinal, left and right pleural chest tubes remain in place to low continuous wall suction -20 cm H2O. No air leak is present. Mediastinal chest tubes draining thin serosanguineous drainage with 30 mL output in the last 8 hours and 350 mL output since surgery. Left and right pleural chest tubes remain in place to low continuous wall suction -20 cm H2O. No air leak is present. Draining thin serosanguineous drainage with 290 mL output in the last 8 hours and 700 mL output since surgery. Ventricular epicardial pacemaker wires remain in place and connected to back up to bedside pacemaker generator on a VVI at 50. Urine output was marginal in the last 8 hours with 180 mL of urine output, 5% albumin to 150 milliliters infusing. Objective - Vital Signs Vital signs: Vital Signs Temp 98.6 F 05/14/23 08:00 Pulse 73 05/14/23 09:00 Resp 18 05/14/23 09:00 BP 126/57 05/14/23 09:00 Pulse Ox 90 L 05/14/23 09:00 FiO2 50 05/13/23 15:13 Intake & Output 05/13/23 05/14/23 05/14/23 18:59 06:59 18:59 Intake Total 2412.874 1980.324 502.806 Output Total 1525 815 138 Balance 268.869 0947.324 364.806 Weight 107.6 kg Intake: IV 177 931 173 Cardiac output 109 250 30 Lactated Ringers 1,000 ml 600 75 @ 50 mls/hr IV .Q20H [facility] Rx#:[id number] ceFAZolin 2 gm In Sodium 50 Chloride 0.9% 50 ml @ 100 mls/hr IVPB Q8HR [facility] Rx# :[id number] pressure bags 65 81 18 Intake, IV Titration 2235.874 149.324 29.806 Amount ACETAMINOPHEN IV (For NPO 200 ) 1,000 mg In Empty Bag 1 bag @ 400 mls/hr IVPB Q6H [facility] Rx#:[id number] Albumin Human 5% 250 ml @ 100 0 mls/hr IVPB .[facility] Rx#:[id number] Albumin Human 5% 250 ml @ 1500 0 mls/hr IVPB [facility] Rx#:[id number] Insulin Regular 100 unit 21.387 42.748 9.545 In Sodium Chloride 0.9% 100 ml @ Per Protocol IV .Q0M [facility] Rx#:[id number] Lactated Ringers 1,000 ml 200 50 @ 50 mls/hr IV .Q20H [facility] Rx#:[id number] Milrinone-D5w Pmx 20 mg 25.952 In Dextrose/Water 1 100ml .bag @ 0.25 MCG/KG/MIN 7. 77 mls/hr IV .[id number] [facility] Rx#:[id number] Nitroglycerin-D5w Pmx 50 0.525 mg In Dextrose/Water 1 250ml.bag @ 5 MCG/MIN 1.5 mls/hr IV .Q24H [facility] Rx#: [id number] Norepinephrine 4 mg In 135.057 56.576 20.261 Sodium Chloride 0.9% 250 ml @ 0.04 MCG/KG/MIN 15. 789 mls/hr IV .Q16H6M [facility] Rx#:[id number] ceFAZolin 2 gm In Sodium 50 Chloride 0.9% 50 ml @ 100 mls/hr IVPB Q8HR [facility] Rx# :[id number] propofoL 1,000 mg In 2.953 Empty Bag 1 bag @ Titrate IV .Q0M [facility] Rx#: [id number] Oral 900 300 Output: Chest Tube Drainage 490 550 90 left and right pleural 240 440 80 mediastinal 250 110 10 Urine 435 265 48 Estimated Blood Loss 600 Other: Voiding Method Indwelling Catheter Indwelling Catheter ABP, PAP, CO, CI - Last Documented Arterial Blood Pressure 92/38 Pulmonary Artery Pressure 26/8 Cardiac Output 4.5 Cardiac Index 2.2 - Exam CONSTITUTIONAL: Sitting up to the bedside chair in the intensive care unit, appears comfortable, cooperative, no apparent acute distress. HEENT: Neck is supple, no JVD, no lymphadenopathy. Right IJ Cordis and Iliff- Misha catheter in place and functioning. RESPIRATORY: Lungs sounds essentially clear throughout, diminished to his bilateral bases. Respirations are symmetrical and nonlabored. Currently on 1 L nasal cannula with oxygen saturations 95%. Able to achieve 1000 mL on his incentive spirometry. Strong cough. CARDIOVASCULAR: Regular rhythm and rate. S1 and S2 present, negative for S3, gallop or murmur. Sternum is stable. Palpable peripheral pulses bilaterally, no edema to his bilateral lower extremities. No calf pain or tenderness noted. Heart hugger in place with patient demonstrating appropriate use. Knee-high GENNY hose and sequential compression devices in place to his bilateral lower extremities. GASTROINTESTINAL: Abdomen soft, nontender, nondistended. Hypoactive bowel sounds present 4 quadrants. Tolerating diet. Passing flatus. No guarding or rigidity. GENITOURINARY: Nelson present draining clear, yellow urine. Urine Output 180 mL in the last 8 hours INTEGUMENTARY: Skin is warm and dry with no evidence of clubbing or cyanosis. Midline sternal incision clean dry and well approximated, covered with dry intact dressing. Right lower extremity EVH sites well approximated without redness or drainage. NEUROLOGIC: Cranial nerves II through XII intact. No focal deficits. MUSKULOSKELETAL: Able to move all extremities, strength equal bilaterally, generalized weakness. PSYCHIATRIC: Alert and oriented to person place and time, appropriate affect, intact judgment and insight. INVASIVE LINES AND TUBES: Mediastinal/left/right pleural chest tubes present and connected to low continuous wall suction, no air leaks present. Mediastinal tube with 30 mL of thin serosanguineous drainage overnight, 350 mL output in the last 24 hours. Left/right pleural chest tubes with 290 mL of thin serosanguineous drainage overnight, 700 mL output in the last 24 hours. Ventricular epicardial pacemaker wires present, connected to generator, VVI backup rate 50 bpm. Right internal jugular Iliff/Cordis, right radial arterial line present. Last CO 4.5, CI 2.2, PA 37/7 and CVP 4 mmHg. - Allied health notes Allied health notes reviewed: nursing - Labs CBC & Chem 7: 05/14/23 04:00 05/14/23 04:00 Labs: Abnormal Lab Results - Last 24 Hours (Table) 05/04/23 05/13/23 05/13/23 Range/Units 09:01 08:33 09:48 WBC (3.8-10.6) k/uL RBC (4.30-5.90) m/uL Hgb (13.0-17.5) gm/dL Hct (39.0-53.0) % Plt Count (150-450) k/uL Neutrophils # (1.3-7.7) k/uL Lymphocytes # (1.0-4.8) k/uL Monocytes # (0-1.0) k/uL Eosinophils # (0-0.7) k/uL ABG pH 7.32 L (7.35-7.45) ABG pO2 147 H 141 H (83-108) mmHg ABG HCO3 (21-25) mmol/L ABG O2 Saturation 98.6 H 98.7 H (94-97) % ABG Glucose 188 H 163 H (75-99) mg/dL ABG Lactic Acid (0.5-1.6) mmol/L Hemoglobin 12.9 L 12.7 L (13.0-17.5) gm/dL Carbon Dioxide (22-30) mmol/L BUN (9-20) mg/dL Creatinine (0.66-1.25) mg/dL Glucose (74-99) mg/dL POC Glucose (mg/dL) (70-110) mg/dL Calcium (8.4-10.2) mg/dL Ionized Calcium Sagrario (4.5-5.3) mg/dL Magnesium (1.6-2.3) mg/dL Alkaline Phosphatase (38-126) U/L Total Protein (6.3-8.2) g/dL Albumin (3.5-5.0) g/dL Arterial Blood Glucose 188 H 163 H (75-99) mg/dL Crossmatch See Detail 05/13/23 05/13/23 05/13/23 Range/Units 10:16 10:52 11:29 WBC (3.8-10.6) k/uL RBC (4.30-5.90) m/uL Hgb (13.0-17.5) gm/dL Hct (39.0-53.0) % Plt Count (150-450) k/uL Neutrophils # (1.3-7.7) k/uL Lymphocytes # (1.0-4.8) k/uL Monocytes # (0-1.0) k/uL Eosinophils # (0-0.7) k/uL ABG pH 7.34 L 7.34 L (7.35-7.45) ABG pO2 170 H 172 H 133 H (83-108) mmHg ABG HCO3 (21-25) mmol/L ABG O2 Saturation 98.8 H 98.9 H 98.7 H (94-97) % ABG Glucose 150 H 126 H 105 H (75-99) mg/dL ABG Lactic Acid 2.1 H 2.7 H* (0.5-1.6) mmol/L Hemoglobin 12.7 L 12.3 L 12.0 L (13.0-17.5) gm/dL Carbon Dioxide (22-30) mmol/L BUN (9-20) mg/dL Creatinine (0.66-1.25) mg/dL Glucose (74-99) mg/dL POC Glucose (mg/dL) (70-110) mg/dL Calcium (8.4-10.2) mg/dL Ionized Calcium Sagrario (4.5-5.3) mg/dL Magnesium (1.6-2.3) mg/dL Alkaline Phosphatase (38-126) U/L Total Protein (6.3-8.2) g/dL Albumin (3.5-5.0) g/dL Arterial Blood Glucose 150 H 126 H 105 H (75-99) mg/dL Crossmatch 05/13/23 05/13/23 05/13/23 Range/Units 12:19 12:20 12:20 WBC 24.4 H (3.8-10.6) k/uL RBC 3.85 L (4.30-5.90) m/uL Hgb 11.6 L (13.0-17.5) gm/dL Hct 36.6 L (39.0-53.0) % Plt Count (150-450) k/uL Neutrophils # 18.9 H (1.3-7.7) k/uL Lymphocytes # (1.0-4.8) k/uL Monocytes # 1.5 H (0-1.0) k/uL Eosinophils # 0.8 H (0-0.7) k/uL ABG pH (7.35-7.45) ABG pO2 (83-108) mmHg ABG HCO3 (21-25) mmol/L ABG O2 Saturation (94-97) % ABG Glucose (75-99) mg/dL ABG Lactic Acid (0.5-1.6) mmol/L Hemoglobin (13.0-17.5) gm/dL Carbon Dioxide 20 L (22-30) mmol/L BUN 39 H (9-20) mg/dL Creatinine 2.33 H (0.66-1.25) mg/dL Glucose 154 H (74-99) mg/dL POC Glucose (mg/dL) 129 H (70-110) mg/dL Calcium 7.9 L (8.4-10.2) mg/dL Ionized Calcium Sagrario (4.5-5.3) mg/dL Magnesium 2.4 H (1.6-2.3) mg/dL Alkaline Phosphatase (38-126) U/L Total Protein 5.5 L (6.3-8.2) g/dL Albumin 3.0 L (3.5-5.0) g/dL Arterial Blood Glucose (75-99) mg/dL Crossmatch 05/13/23 05/13/23 05/13/23 Range/Units 12:48 14:17 15:06 WBC (3.8-10.6) k/uL RBC (4.30-5.90) m/uL Hgb (13.0-17.5) gm/dL Hct (39.0-53.0) % Plt Count (150-450) k/uL Neutrophils # (1.3-7.7) k/uL Lymphocytes # (1.0-4.8) k/uL Monocytes # (0-1.0) k/uL Eosinophils # (0-0.7) k/uL ABG pH 7.31 L (7.35-7.45) ABG pO2 387 H (83-108) mmHg ABG HCO3 (21-25) mmol/L ABG O2 Saturation 99.6 H (94-97) % ABG Glucose (75-99) mg/dL ABG Lactic Acid (0.5-1.6) mmol/L Hemoglobin (13.0-17.5) gm/dL Carbon Dioxide (22-30) mmol/L BUN (9-20) mg/dL Creatinine (0.66-1.25) mg/dL Glucose (74-99) mg/dL POC Glucose (mg/dL) 223 H 257 H (70-110) mg/dL Calcium (8.4-10.2) mg/dL Ionized Calcium Sagrario (4.5-5.3) mg/dL Magnesium (1.6-2.3) mg/dL Alkaline Phosphatase (38-126) U/L Total Protein (6.3-8.2) g/dL Albumin (3.5-5.0) g/dL Arterial Blood Glucose (75-99) mg/dL Crossmatch 05/13/23 05/13/23 05/13/23 Range/Units 15:10 15:42 16:05 WBC 13.8 H (3.8-10.6) k/uL RBC 3.23 L (4.30-5.90) m/uL Hgb 10.2 L (13.0-17.5) gm/dL Hct 30.7 L (39.0-53.0) % Plt Count (150-450) k/uL Neutrophils # 12.4 H (1.3-7.7) k/uL Lymphocytes # (1.0-4.8) k/uL Monocytes # (0-1.0) k/uL Eosinophils # (0-0.7) k/uL ABG pH 7.29 L (7.35-7.45) ABG pO2 (83-108) mmHg ABG HCO3 18 L (21-25) mmol/L ABG O2 Saturation 97.4 H (94-97) % ABG Glucose (75-99) mg/dL ABG Lactic Acid (0.5-1.6) mmol/L Hemoglobin (13.0-17.5) gm/dL Carbon Dioxide (22-30) mmol/L BUN (9-20) mg/dL Creatinine (0.66-1.25) mg/dL Glucose (74-99) mg/dL POC Glucose (mg/dL) 218 H (70-110) mg/dL Calcium (8.4-10.2) mg/dL Ionized Calcium Sagrario (4.5-5.3) mg/dL Magnesium (1.6-2.3) mg/dL Alkaline Phosphatase (38-126) U/L Total Protein (6.3-8.2) g/dL Albumin (3.5-5.0) g/dL Arterial Blood Glucose (75-99) mg/dL Crossmatch 05/13/23 05/13/23 05/13/23 Range/Units 17:11 18:04 18:05 WBC 16.8 H (3.8-10.6) k/uL RBC 3.34 L (4.30-5.90) m/uL Hgb 11.4 L (13.0-17.5) gm/dL Hct 31.3 L (39.0-53.0) % Plt Count (150-450) k/uL Neutrophils # 15.0 H (1.3-7.7) k/uL Lymphocytes # 0.7 L (1.0-4.8) k/uL Monocytes # (0-1.0) k/uL Eosinophils # (0-0.7) k/uL ABG pH (7.35-7.45) ABG pO2 (83-108) mmHg ABG HCO3 (21-25) mmol/L ABG O2 Saturation (94-97) % ABG Glucose (75-99) mg/dL ABG Lactic Acid (0.5-1.6) mmol/L Hemoglobin (13.0-17.5) gm/dL Carbon Dioxide (22-30) mmol/L BUN (9-20) mg/dL Creatinine (0.66-1.25) mg/dL Glucose (74-99) mg/dL POC Glucose (mg/dL) 195 H 185 H (70-110) mg/dL Calcium (8.4-10.2) mg/dL Ionized Calcium Sagrario (4.5-5.3) mg/dL Magnesium (1.6-2.3) mg/dL Alkaline Phosphatase (38-126) U/L Total Protein (6.3-8.2) g/dL Albumin (3.5-5.0) g/dL Arterial Blood Glucose (75-99) mg/dL Crossmatch 05/13/23 05/13/23 05/13/23 Range/Units 19:01 19:57 20:54 WBC (3.8-10.6) k/uL RBC (4.30-5.90) m/uL Hgb (13.0-17.5) gm/dL Hct (39.0-53.0) % Plt Count (150-450) k/uL Neutrophils # (1.3-7.7) k/uL Lymphocytes # (1.0-4.8) k/uL Monocytes # (0-1.0) k/uL Eosinophils # (0-0.7) k/uL ABG pH (7.35-7.45) ABG pO2 (83-108) mmHg ABG HCO3 (21-25) mmol/L ABG O2 Saturation (94-97) % ABG Glucose (75-99) mg/dL ABG Lactic Acid (0.5-1.6) mmol/L Hemoglobin (13.0-17.5) gm/dL Carbon Dioxide (22-30) mmol/L BUN (9-20) mg/dL Creatinine (0.66-1.25) mg/dL Glucose (74-99) mg/dL POC Glucose (mg/dL) 163 H 151 H 146 H (70-110) mg/dL Calcium (8.4-10.2) mg/dL Ionized Calcium Sagrario (4.5-5.3) mg/dL Magnesium (1.6-2.3) mg/dL Alkaline Phosphatase (38-126) U/L Total Protein (6.3-8.2) g/dL Albumin (3.5-5.0) g/dL Arterial Blood Glucose (75-99) mg/dL Crossmatch 05/13/23 05/13/23 05/13/23 Range/Units 21:57 23:01 23:51 WBC (3.8-10.6) k/uL RBC (4.30-5.90) m/uL Hgb (13.0-17.5) gm/dL Hct (39.0-53.0) % Plt Count (150-450) k/uL Neutrophils # (1.3-7.7) k/uL Lymphocytes # (1.0-4.8) k/uL Monocytes # (0-1.0) k/uL Eosinophils # (0-0.7) k/uL ABG pH (7.35-7.45) ABG pO2 (83-108) mmHg ABG HCO3 (21-25) mmol/L ABG O2 Saturation (94-97) % ABG Glucose (75-99) mg/dL ABG Lactic Acid (0.5-1.6) mmol/L Hemoglobin (13.0-17.5) gm/dL Carbon Dioxide (22-30) mmol/L BUN (9-20) mg/dL Creatinine (0.66-1.25) mg/dL Glucose (74-99) mg/dL POC Glucose (mg/dL) 143 H 133 H 124 H (70-110) mg/dL Calcium (8.4-10.2) mg/dL Ionized Calcium Sagrario (4.5-5.3) mg/dL Magnesium (1.6-2.3) mg/dL Alkaline Phosphatase (38-126) U/L Total Protein (6.3-8.2) g/dL Albumin (3.5-5.0) g/dL Arterial Blood Glucose (75-99) mg/dL Crossmatch 07/21/23 07/21/23 07/21/23 Range/Units 00:56 02:11 02:57 WBC (3.8-10.6) k/uL RBC (4.30-5.90) m/uL Hgb (13.0-17.5) gm/dL Hct (39.0-53.0) % Plt Count (150-450) k/uL Neutrophils # (1.3-7.7) k/uL Lymphocytes # (1.0-4.8) k/uL Monocytes # (0-1.0) k/uL Eosinophils # (0-0.7) k/uL ABG pH (7.35-7.45) ABG pO2 (83-108) mmHg ABG HCO3 (21-25) mmol/L ABG O2 Saturation (94-97) % ABG Glucose (75-99) mg/dL ABG Lactic Acid (0.5-1.6) mmol/L Hemoglobin (13.0-17.5) gm/dL Carbon Dioxide (22-30) mmol/L BUN (9-20) mg/dL Creatinine (0.66-1.25) mg/dL Glucose (74-99) mg/dL POC Glucose (mg/dL) 124 H 124 H 122 H (70-110) mg/dL Calcium (8.4-10.2) mg/dL Ionized Calcium Sagrario (4.5-5.3) mg/dL Magnesium (1.6-2.3) mg/dL Alkaline Phosphatase (38-126) U/L Total Protein (6.3-8.2) g/dL Albumin (3.5-5.0) g/dL Arterial Blood Glucose (75-99) mg/dL Crossmatch 05/14/23 05/14/23 05/14/23 Range/Units 04:00 04:00 04:02 WBC 12.9 H (3.8-10.6) k/uL RBC 3.21 L (4.30-5.90) m/uL Hgb 10.7 L (13.0-17.5) gm/dL Hct 29.7 L (39.0-53.0) % Plt Count 143 L (150-450) k/uL Neutrophils # 11.1 H (1.3-7.7) k/uL Lymphocytes # 0.8 L (1.0-4.8) k/uL Monocytes # (0-1.0) k/uL Eosinophils # (0-0.7) k/uL ABG pH (7.35-7.45) ABG pO2 (83-108) mmHg ABG HCO3 (21-25) mmol/L ABG O2 Saturation (94-97) % ABG Glucose (75-99) mg/dL ABG Lactic Acid (0.5-1.6) mmol/L Hemoglobin (13.0-17.5) gm/dL Carbon Dioxide 21 L (22-30) mmol/L BUN 43 H (9-20) mg/dL Creatinine 2.83 H (0.66-1.25) mg/dL Glucose 105 H (74-99) mg/dL POC Glucose (mg/dL) 116 H (70-110) mg/dL Calcium 7.7 L (8.4-10.2) mg/dL Ionized Calcium Sagrario 4.3 L (4.5-5.3) mg/dL Magnesium (1.6-2.3) mg/dL Alkaline Phosphatase 30 L (38-126) U/L Total Protein 5.6 L (6.3-8.2) g/dL Albumin (3.5-5.0) g/dL Arterial Blood Glucose (75-99) mg/dL Crossmatch 05/14/23 05/14/23 05/14/23 Range/Units 04:55 05:55 06:55 WBC (3.8-10.6) k/uL RBC (4.30-5.90) m/uL Hgb (13.0-17.5) gm/dL Hct (39.0-53.0) % Plt Count (150-450) k/uL Neutrophils # (1.3-7.7) k/uL Lymphocytes # (1.0-4.8) k/uL Monocytes # (0-1.0) k/uL Eosinophils # (0-0.7) k/uL ABG pH (7.35-7.45) ABG pO2 (83-108) mmHg ABG HCO3 (21-25) mmol/L ABG O2 Saturation (94-97) % ABG Glucose (75-99) mg/dL ABG Lactic Acid (0.5-1.6) mmol/L Hemoglobin (13.0-17.5) gm/dL Carbon Dioxide (22-30) mmol/L BUN (9-20) mg/dL Creatinine (0.66-1.25) mg/dL Glucose (74-99) mg/dL POC Glucose (mg/dL) 111 H 131 H 157 H (70-110) mg/dL Calcium (8.4-10.2) mg/dL Ionized Calcium Sagrario (4.5-5.3) mg/dL Magnesium (1.6-2.3) mg/dL Alkaline Phosphatase (38-126) U/L Total Protein (6.3-8.2) g/dL Albumin (3.5-5.0) g/dL Arterial Blood Glucose (75-99) mg/dL Crossmatch 05/14/23 05/14/23 Range/Units 08:05 09:07 WBC (3.8-10.6) k/uL RBC (4.30-5.90) m/uL Hgb (13.0-17.5) gm/dL Hct (39.0-53.0) % Plt Count (150-450) k/uL Neutrophils # (1.3-7.7) k/uL Lymphocytes # (1.0-4.8) k/uL Monocytes # (0-1.0) k/uL Eosinophils # (0-0.7) k/uL ABG pH (7.35-7.45) ABG pO2 (83-108) mmHg ABG HCO3 (21-25) mmol/L ABG O2 Saturation (94-97) % ABG Glucose (75-99) mg/dL ABG Lactic Acid (0.5-1.6) mmol/L Hemoglobin (13.0-17.5) gm/dL Carbon Dioxide (22-30) mmol/L BUN (9-20) mg/dL Creatinine (0.66-1.25) mg/dL Glucose (74-99) mg/dL POC Glucose (mg/dL) 149 H 191 H (70-110) mg/dL Calcium (8.4-10.2) mg/dL Ionized Calcium Sagrario (4.5-5.3) mg/dL Magnesium (1.6-2.3) mg/dL Alkaline Phosphatase (38-126) U/L Total Protein (6.3-8.2) g/dL Albumin (3.5-5.0) g/dL Arterial Blood Glucose (75-99) mg/dL Crossmatch - Imaging and Cardiology Chest x-ray: report reviewed, image reviewed Assessment and Plan Assessment: Two-vessel coronary artery disease, status post off pump 2 vessel coronary artery bypass grafting surgery Nonischemic cardiomyopathy with an EF of 45-50% History of left ventricular thrombus on transthoracic 2-D echocardiogram on 05/23/2023 which was organized and did not appear to be acute History of pulmonary embolus on eliquis on an outpatient basis History of hypertension Diabetes mellitus, with a preoperative hemoglobin A1c 7.4% History of CVA with some residual right-sided weakness COVID-19 infection in early 2021 Acute on chronic kidney disease with a baseline creatinine of 2.0 Prostate disorder Plan: Continue to maximize medical therapy with aspirin, statin, Plavix, beta keara. Will increase beta keara as tolerated. We will restart the patient's Eliquis once his ventricular epicardial pacemaker wires have been removed. Wean norepinephrine drip to off. Continue dopamine drip at 3 mcg/kg/m. Wean O2 as tolerated. Encourage incentive spirometry use 10 times every hour wh ile awake. Bronchodilators per pulmonology. Start Midodrine 5 mg by mouth 3 times a day to help with blood pressure support. Will monitor daily labs and chest x-rays. Electrolyte replacement per protocol. GI/DVT prophylaxis. Increase activity as tolerated. PT/OT/cardiac rehab consulted. Pain control with current medication regimen. No Toradol due to kidney disease. Insulin management per internal medicine service, patient's preoperative hemoglobin A1c was 7.4%. Continue chest tubes for another 24 hours. Continue Nelson catheter for another 24 hours for strict accurate intake and output.. Daily weights Consult nephrology for elevated BUN and creatinine. Remove right IJ Iliff-Misha catheter, keep right IJ Cordis and placed to continuous CVP monitoring. More recommendations to follow based on patient's clinical course. Time with Patient: Greater than 30
[2023-05-14 11:57] LABS: Glucose,Whole Blood 167 mg/dL (70-110)
[2023-05-14] MEDS: CLEVIDIPINE BUTYRATE 25 MG in EMPTY BAG 1 BAG IV SCH (12:06)
[2023-05-14 12:17] LABS: Glucose,Whole Blood 251 mg/dL (70-110)
[2023-05-14] MEDS: MIDODRINE 5 MG TAB PO SCH ×2 (12:23→17:49)
[2023-05-14 13:29] LABS: Glucose,Whole Blood 197 mg/dL (70-110)
[2023-05-14 14:03] LABS: Glucose,Whole Blood 181 mg/dL (70-110)
[2023-05-14] MEDS: NITROGLYCERIN-D5W PMX 50 MG in DEXTROSE/WATER 1 250ML.BAG IV SCH (14:14)
[2023-05-14 15:14] LABS: Glucose,Whole Blood 143 mg/dL (70-110)
[2023-05-14 16:19] LABS: Glucose,Whole Blood 137 mg/dL (70-110)
--- NOTE | 2023-05-14 16:39 | P.CRDCN ---
History of Present Illness History of present illness: HISTORY OF PRESENTING ILLNESS Patient is pleasant 68-year-old male with history of diabetes mellitus type 2, CKD, hypertension, previous COVID-19 infection, stroke with EF 25-30% with CAD with CT of the RCA and LAD. Echo had showed improved EF to 45-50% and had been placed on hold directed medical therapy. He was also noted to have apical thrombus and had been placed on anticoagulation. He follows in the office with Dr. Segundo. He underwent off-pump bypass with ARAUZ to LAD and SVG to PDA and left atrial appendage ligation on 05/13. Overall he has been doing well. He remains on dopamine drip at 3. He has been having some occasional shortness of breath however denies any chest pain or pressure. Hemoglobin 10.7, white blood cell count 12.9, platelets 143, and 2.8, AST 23, AL T 11. BP in the 120s over 50s and heart rate in the 70s. REVIEW OF SYSTEMS At the time of my exam: CONSTITUTIONAL: Denies fever or chills. CARDIOVASCULAR: Denies chest pain, +shortness of breath, no orthopnea, PND or palpitations. RESPIRATORY: Denies cough. GASTROINTESTINAL: Denies abdominal pain, diarrhea, constipation, nausea or vomiting. MUSCULOSKELETAL: Denies myalgias. NEUROLOGIC: Denies numbness, tingling or weakness. ENDOCRINE: Denies fatigue, weight change, polydipsia or polyurina. GENITOURINARY: Denies burning, hematuria or urgency with micturation. HEMATOLOGIC: Denies history of anemia or bleeding. PHYSICAL EXAMINATION Vital signs reviewed. CONSTITUTIONAL: No apparent distress. HEENT: Head is normocephalic. Pupils are equal, round. Sclerae anicteric. Mucous membranes of the mouth are moist. No JVD. No carotid bruit. CHEST EXAMINATION: Lungs are clear to auscultation. No chest wall tenderness is noted on palpation or with deep breathing. HEART EXAMINATION: Regular rate and rhythm. S1, S2 heard. No murmurs, gallops or rub. ABDOMEN: Soft, nontender. Positive bowel sounds. EXTREMITIES: 2+ peripheral pulses, no lower extremity edema and no calf tenderness. NEUROLOGIC EXAMINATION: Patient is awake, alert and oriented x3. ASSESSMENT 1. CAD with MACHINE SPREADER LAD, MACHINE SPREADER RCA status post ARAUZ to LAD and SVG to PDA 05/13 2. Ischemic cardiomyopathy EF previously 25-30% improved to 45-50% 3. Chronic systolic heart failure 4. Diabetes mellitus type 2 5. Hypertension 6. Chronic kidney disease 7. Previous history of stroke 8. Previous history of LV thrombus PLAN Patient appears to be progressing well status post CABG. Continue with heart failure regimen with Metoprolol and likely add back Aldactone and Entresto as able. It appears he was on anticoagulation previously for the left ventricular thrombus, currently on aspirin and Plavix. Continue with current supportive care. Further recommendations to follow. 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 Past Anesthesia/Blood Transfusion Reactions: No Reported Reaction Past Alcohol Use History: None Reported - Past Family History Mother Family Medical History: No Reported History Father Family Medical History: Myocardial Infarction ([place]) Additional Family Medical History / Comment(s): massive [place] @53 Medications and Allergies Home Medications Medication Instructions Recorded Confirmed Type Furosemide [Lasix] 20 mg PO DAILY 05/20/22 05/13/23 History Rosuvastatin [Crestor] 40 mg PO DAILY 05/20/22 05/13/23 History Sacubitril/Valsartan [Entresto 24 1 tab PO BID-W/MEALS 05/20/22 05/13/23 History mg-26 mg Tablet] Spironolactone [Aldactone] 25 mg PO PC-LUNCH 05/20/22 05/13/23 History carvediloL [Coreg] 6.25 mg PO BID-W/MEALS 05/20/22 05/13/23 History metFORMIN HCL 1,000 mg PO BID-W/MEALS 05/20/22 05/13/23 History Apixaban [Eliquis] 5 mg PO BID #0 05/25/22 05/13/23 Rx Aspirin 81 mg PO DAILY 30 Days #30 tab 05/25/22 05/13/23 Rx Liraglutide [Victoza 2-Javon] 1.2 mg SQ DAILY 04/13/23 05/13/23 History Allergies Allergy/AdvReac Type Severity Reaction Status Date / Time atorvastatin [From Lipitor] Allergy Rash/Hives Verified 05/13/23 05:54 Physical Exam Vitals: Vital Signs Temp Pulse Resp BP Pulse Ox 05/14/23 16:02 77 05/14/23 15:54 75 05/14/23 15:00 76 26 H 129/60 94 L 05/14/23 14:30 76 23 123/57 93 L 05/14/23 14:00 71 15 121/59 94 L 05/14/23 13:30 72 10 L 117/55 94 L 05/14/23 13:00 75 13 109/55 95 05/14/23 12:30 78 19 117/56 95 05/14/23 12:15 77 26 H 110/94 95 05/14/23 12:00 98.6 F 82 14 113/57 94 L 05/14/23 11:45 71 28 H 111/59 95 05/14/23 11:30 73 27 H 109/53 97 05/14/23 11:27 73 05/14/23 11:22 70 20 118/58 95 05/14/23 11:16 71 05/14/23 10:45 78 10 L 109/53 93 L 05/14/23 10:30 77 13 103/52 93 L 05/14/23 10:15 75 23 96/50 93 L 05/14/23 10:00 77 23 108/52 94 L 05/14/23 09:45 76 22 103/51 94 L 05/14/23 09:30 75 23 106/48 93 L 05/14/23 09:15 73 26 H 113/63 93 L 05/14/23 09:00 73 18 126/57 90 L 05/14/23 08:45 72 18 127/78 93 L 05/14/23 08:30 73 18 123/57 93 L 05/14/23 08:15 74 23 118/58 93 L 05/14/23 08:01 73 05/14/23 08:00 98.6 F 72 24 117/58 93 L 05/14/23 07:46 70 05/14/23 07:45 76 19 122/58 91 L 05/14/23 07:30 73 19 83/51 92 L 05/14/23 07:15 75 8 L 105/54 91 L 05/14/23 07:00 74 21 123/67 92 L 05/14/23 06:45 75 17 109/54 95 05/14/23 06:30 75 13 116/52 95 05/14/23 06:15 73 21 96/51 95 05/14/23 06:00 74 14 103/50 95 05/14/23 05:45 75 24 117/54 95 05/14/23 05:30 75 14 139/65 05/14/23 05:15 75 18 94 L 05/14/23 05:00 72 13 114/54 94 L 05/14/23 04:45 70 16 107/57 94 L 05/14/23 04:30 71 17 108/58 94 L 05/14/23 04:15 70 19 113/53 94 L 05/14/23 04:00 98.2 F 73 12 96/51 94 L 05/14/23 03:45 73 18 115/52 94 L 05/14/23 03:30 69 21 101/58 94 L 05/14/23 03:15 71 16 107/56 94 L 05/14/23 03:00 72 15 105/51 94 L 05/14/23 02:45 75 20 108/54 94 L 05/14/23 02:30 74 23 103/55 94 L 05/14/23 02:15 73 20 97/58 95 05/14/23 02:00 77 22 101/58 94 L 05/14/23 01:45 75 13 107/60 93 L 05/14/23 01:30 76 19 109/54 94 L 05/14/23 01:15 78 19 107/59 95 05/14/23 01:00 79 17 113/56 94 L 05/14/23 00:45 79 15 113/59 94 L 05/14/23 00:30 76 22 109/63 94 L 05/14/23 00:15 73 16 102/56 89 L 05/14/23 00:00 97.7 F 81 18 104/51 92 L 05/13/23 23:45 81 18 93/61 93 L 05/13/23 23:30 81 10 L 99/50 92 L 05/13/23 23:15 81 20 103/55 93 L 05/13/23 23:00 82 0 L 111/58 94 L 05/13/23 22:45 81 3 L 106/56 94 L 05/13/23 22:30 84 10 L 100/54 93 L 05/13/23 22:15 86 17 115/48 93 L 05/13/23 22:00 83 24 102/58 92 L 05/13/23 21:45 86 19 115/70 94 L 05/13/23 21:30 81 23 105/53 94 L 05/13/23 21:15 86 12 114/57 94 L 05/13/23 21:00 85 21 107/59 95 05/13/23 20:45 88 17 108/60 95 05/13/23 20:37 86 05/13/23 20:30 84 19 121/63 98 05/13/23 20:28 84 05/13/23 20:15 82 16 119/56 95 05/13/23 20:00 97.0 F L 82 18 105/50 96 05/13/23 19:45 85 17 109/56 95 05/13/23 19:30 89 14 102/54 93 L 05/13/23 19:15 90 20 101/51 92 L 05/13/23 19:00 92 21 110/55 92 L 05/13/23 18:45 86 19 99/50 91 L 05/13/23 18:30 86 17 102/55 91 L 05/13/23 18:15 90 25 H 105/55 93 L 05/13/23 18:00 86 24 104/58 92 L 05/13/23 17:45 87 10 L 108/52 91 L 05/13/23 17:30 88 26 H 100/52 91 L 05/13/23 17:15 87 7 L 107/52 91 L 05/13/23 17:00 86 4 L 105/52 92 L 05/13/23 16:45 89 0 L 94/50 92 L Intake and Output 05/14/23 05/14/23 05/14/23 06:59 14:59 22:59 Intake Total 1817.686 0828.253 61.3 Output Total 560 388 50 Balance 6604.569 6426.253 11.3 Intake: IV 664 823 52 Cardiac output 160 30 Lactated Ringers 1,000 ml 450 195 40 @ 20 mls/hr IV .Q24H [facility] Rx#:[id number] Sodium Chloride 0.9% 500 500 ml 500 ml @ 999 mls/hr IV .Q31M ONE Rx#:[id number] ceFAZolin 2 gm In Sodium 50 Chloride 0.9% 50 ml @ 100 mls/hr IVPB Q8HR [facility] Rx# :[id number] pressure bags 54 48 12 Intake, IV Titration 44.514 73.253 9.3 Amount Insulin Regular 100 unit 21.555 52.992 9.3 In Sodium Chloride 0.9% 100 ml @ Per Protocol IV .Q0M [facility] Rx#:[id number] Norepinephrine 4 mg In 22.959 20.261 Sodium Chloride 0.9% 250 ml @ 0.04 MCG/KG/MIN 15. 789 mls/hr IV .Q16H6M [facility] Rx#:[id number] Oral 900 908 Output: Chest Tube Drainage 360 250 20 left and right pleural 330 240 20 mediastinal 30 10 Urine 200 138 30 Other: Voiding Method Indwelling Catheter Weight 107.6 kg 107.6 kg ABP, PAP, CO, CI - Last 8 Hours Arterial Blood Pressure 114/40 Arterial Blood Pressure 122/43 Arterial Blood Pressure 116/42 Arterial Blood Pressure 101/39 Arterial Blood Pressure 108/43 Arterial Blood Pressure 126/41 Arterial Blood Pressure 114/40 Arterial Blood Pressure 101/48 Arterial Blood Pressure 111/42 Arterial Blood Pressure 119/49 Arterial Blood Pressure 104/43 Arterial Blood Pressure 115/43 Arterial Blood Pressure 111/40 Arterial Blood Pressure 104/39 Arterial Blood Pressure 105/37 Arterial Blood Pressure 104/37 Arterial Blood Pressure 101/36 Arterial Blood Pressure 102/37 Arterial Blood Pressure 92/38 Arterial Blood Pressure 125/45 Pulmonary Artery Pressure 29/9 Pulmonary Artery Pressure 24/7 Pulmonary Artery Pressure 26/8 Pulmonary Artery Pressure 29/7 Results 05/14/23 04:00 05/14/23 04:00 Cardiac Enzymes 05/14/23 Range/Units 04:00 AST 23 (17-59) U/L CBC 05/13/23 05/14/23 Range/Units 18:05 04:00 WBC 16.8 H 12.9 H (3.8-10.6) k/uL RBC 3.34 L 3.21 L (4.30-5.90) m/uL Hgb 11.4 L 10.7 L (13.0-17.5) gm/dL Hct 31.3 L 29.7 L (39.0-53.0) % Plt Count 174 143 L (150-450) k/uL Comprehensive Metabolic Panel 05/14/23 Range/Units 04:00 Sodium 137 (137-145) mmol/L Potassium 4.0 (3.5-5.1) mmol/L Chloride 106 (98-107) mmol/L Carbon Dioxide 21 L (22-30) mmol/L BUN 43 H (9-20) mg/dL Creatinine 2.83 H (0.66-1.25) mg/dL Glucose 105 H (74-99) mg/dL Calcium 7.7 L (8.4-10.2) mg/dL AST 23 (17-59) U/L ALT 11 (4-49) U/L Alkaline Phosphatase 30 L (38-126) U/L Total Protein 5.6 L (6.3-8.2) g/dL Albumin 3.5 (3.5-5.0) g/dL Current Medications Generic Name Dose Route Start Last Admin Trade Name Freq PRN Reason Stop Dose Admin Hydrocodone Bitart/Acetaminophen 1 each 05/13/23 23:24 05/14/23 04:41 Hydrocodone/Apap 5-325mg 1 Each Tab PO 1 each Q4HR PRN Administration Moderate Pain (Scale 4 to 6) Hydrocodone Bitart/Acetaminophen 1 each 05/13/23 23:59 Hydrocodone/Apap 10-325mg 1 Each Tab PO Q4HR PRN Severe Pain (Scale 7 to 10) Albuterol/Ipratropium 3 ml 05/13/23 20:00 05/14/23 15:54 Ipratropium-Albuterol 3 Ml Neb INHALATION 3 ml RT-QID JESSICA Administration Albuterol/Ipratropium 3 ml 05/13/23 12:12 Ipratropium-Albuterol 3 Ml Neb INHALATION RT-Q2H PRN Shortness Of Breath Or Wheezing Aspirin 325 mg 05/14/23 09:00 05/14/23 08:42 Aspirin 325 Mg Tab PO 325 mg DAILY JESSICA Administration Benzocaine/Menthol 1 each 05/13/23 12:12 Benzocaine/Menthol Lozeng 1 Each Lozenge MUCOUS MEM Q2H PRN Sore Throat Bisacodyl 10 mg 05/14/23 09:00 Bisacodyl 10 Mg Supp RECTAL DAILY PRN Constipation Clopidogrel Bisulfate 75 mg 05/14/23 09:00 05/14/23 08:42 Clopidogrel 75 Mg Tab PO 75 mg DAILY JESSICA Administration Dextrose/Water 25 ml 05/13/23 12:12 Dextrose 50% Syringe 50 Ml IVP PER PROTOCOL PRN Hypoglycemia Protocol Dextrose/Water 50 ml 05/13/23 12:12 Dextrose 50% Syringe 50 Ml IVP PER PROTOCOL PRN Hypoglycemia Protocol Heparin Sodium (Porcine) 5,000 unit 05/13/23 16:00 05/14/23 16:23 Heparin Sodium,Porcine/Pf 5,000 Unit/0.5 Ml Syringe SQ 5,000 unit Q8HR JESSICA Administration Hydralazine HCl 10 mg 05/13/23 12:12 Hydralazine Hcl 20 Mg/Ml 1 Ml Vial IVP Q1H PRN Blood Pressure - High Milrinone Lactate/Dextrose 20 100 mls @ 7.77 mls/hr 05/13/23 12:00 05/14/23 14:15 mg/ IV Solution IV Not Given .[id number] JESSICA 0.25 MCG/KG/MIN Clevidipine 25 mg/ IV Solution 50 mls @ 2 mls/hr 05/13/23 12:12 05/14/23 12:06 IV Not Given .Q24H JESSICA Protocol 1 MG/HR Amiodarone HCl 150 mg/ 103 mls @ 618 mls/hr 05/13/23 12:12 Dextrose/Water IV .Q10M PRN A.FIB/FLUTTER Protocol Amiodarone HCl 360 mg/ 207.2 mls @ 34.533 mls/hr 05/13/23 12:12 Dextrose/Water IV .Q6H PRN A.FIB/FLUTTER Protocol 1 MG/MIN Amiodarone HCl 450 mg/ 250 mls @ 16.667 mls/hr 05/13/23 12:12 Dextrose/Water IV .Q15H PRN A.FIB/FLUTTER Protocol 0.5 MG/MIN Albumin Human 250 ml/ IV 250 mls @ 250 mls/hr 05/13/23 12:12 05/14/23 03:24 Solution IVPB 05/15/23 12:13 250 mls/hr Q1HR PRN Administration For Volume Protocol Insulin Human Regular 100 unit 101 mls @ 0 mls/hr 05/13/23 13:00 05/14/23 15:16 / Sodium Chloride IV 6 units/hr .Q0M JESSICA 6.06 mls/hr Titration Protocol Per Protocol Nitroglycerin/Dextrose 50 mg/ 250 mls @ 1.5 mls/hr 05/13/23 12:12 05/14/23 14:14 IV Solution IV Not Given .Q24H JESSICA 5 MCG/MIN Lactated Ringer's 1,000 mls @ 20 mls/hr 05/13/23 12:12 05/13/23 13:40 Lactated Ringers IV 50 mls/hr .Q24H JESSICA Administration Norepinephrine Bitartrate 4 mg 254 mls @ 15.789 mls/hr 05/13/23 13:00 05/14/23 08:38 / Sodium Chloride IV 0 mcg/kg/min .Q16H6M JESSICA 0 mls/hr Titration Protocol 0.04 MCG/KG/MIN Dopamine HCl/Dextrose 800 mg/ 250 mls @ 5.828 mls/hr 05/13/23 14:00 05/13/23 14:02 IV Solution IV 3.885 mls/hr .Q24H JESSICA Administration 3 MCG/KG/MIN Magnesium Hydroxide 2,400 mg 05/14/23 09:00 Magnesium Hydroxide 2,400 Mg/30 Ml Cup PO BID PRN Constipation Metoclopramide HCl 10 mg 05/13/23 12:12 05/14/23 11:23 Metoclopramide 5 Mg/Ml 2 Ml Vial IVP 10 mg Q4H PRN Administration Nausea And Vomiting Metoprolol Tartrate 12.5 mg 05/14/23 09:00 05/14/23 09:08 Metoprolol Tartrate 12.5 Mg Tab PO Not Given BID JESSICA Midodrine 5 mg 05/14/23 12:30 05/14/23 12:23 Midodrine 5 Mg Tab PO 5 mg AC-TID JESSICA Administration Miscellaneous Information 1 each 05/13/23 12:12 Potassium Replacement Protocol 1 Each Misc MISCELLANE DAILY PRN Per Protocol Protocol Miscellaneous Information 1 each 05/13/23 12:12 Magnesium Replacement Protocol 1 Each Misc MISCELLANE DAILY PRN Per Protocol Protocol Rosuvastatin 40 Mg 40 mg 05/14/23 09:00 05/14/23 08:43 Tablet PO 40 mg DAILY JESSICA Administration Ondansetron HCl 4 mg 05/13/23 12:12 Ondansetron 4 Mg/2 Ml Vial IVP Q6HR PRN Nausea And Vomiting Pantoprazole Sodium 40 mg 05/14/23 09:00 05/14/23 08:44 Pantoprazole 40 Mg/10 Ml Vial IVP 40 mg DAILY JESSICA Administration Senna/Docusate Sodium 2 each 05/14/23 21:00 Sennosides-Docusate Sodium 1 Each Tab PO HS JESSICA Sodium Chloride 10 ml 05/13/23 21:00 05/14/23 08:42 Sodium Chloride 0.9% Flush 10 Ml Syringe IV 10 ml BID JESSICA Administration Intake and Output 05/14/23 05/14/23 05/14/23 06:59 14:59 22:59 Intake Total 2035.711 4950.253 61.3 Output Total 560 388 50 Balance 5103.390 1957.253 11.3 Intake: IV 664 823 52 Cardiac output 160 30 Lactated Ringers 1,000 ml 450 195 40 @ 20 mls/hr IV .Q24H [facility] Rx#:[id number] Sodium Chloride 0.9% 500 500 ml 500 ml @ 999 mls/hr IV .Q31M ONE Rx#:[id number] ceFAZolin 2 gm In Sodium 50 Chloride 0.9% 50 ml @ 100 mls/hr IVPB Q8HR [facility] Rx# :[id number] pressure bags 54 48 12 Intake, IV Titration 44.514 73.253 9.3 Amount Insulin Regular 100 unit 21.555 52.992 9.3 In Sodium Chloride 0.9% 100 ml @ Per Protocol IV .Q0M [facility] Rx#:[id number] Norepinephrine 4 mg In 22.959 20.261 Sodium Chloride 0.9% 250 ml @ 0.04 MCG/KG/MIN 15. 789 mls/hr IV .Q16H6M JESSICA Rx#:[id number] Oral 900 908 Output: Chest Tube Drainage 360 250 20 left and right pleural 330 240 20 mediastinal 30 10 Urine 200 138 30 Other: Voiding Method Indwelling Catheter Weight 107.6 kg 107.6 kg Patient Weight 05/15/23 06:59 Weight 107.6 kg 05/14/23 04:00 05/14/23 04:00
[2023-05-14 17:12] LABS: Glucose,Whole Blood 178 mg/dL (70-110)
[2023-05-14 17:54] LABS: Glucose,Whole Blood 200 mg/dL (70-110)
[2023-05-14 19:01] LABS: Glucose,Whole Blood 189 mg/dL (70-110)
[2023-05-14] MEDS: LACTATED RINGERS 1,000 ML IV SCH (19:29)
[2023-05-14 20:10] LABS: Glucose,Whole Blood 152 mg/dL (70-110)
[2023-05-14] MEDS: SENNOSIDES-DOCUSATE SODIUM 1 EACH TAB PO SCH (20:30)
[2023-05-14 21:12] LABS: Glucose,Whole Blood 143 mg/dL (70-110)
[2023-05-14 22:09] LABS: Glucose,Whole Blood 128 mg/dL (70-110)
[2023-05-14 22:55] LABS: Glucose,Whole Blood 108 mg/dL (70-110)
[2023-05-14 23:52] LABS: Glucose,Whole Blood 144 mg/dL (70-110)
[2023-05-15 01:01] LABS: Glucose,Whole Blood 132 mg/dL (70-110)
[2023-05-15] MEDS: MILRINONE-D5W PMX 20 MG in DEXTROSE/WATER 1 100ML.BAG IV SCH (02:07)
[2023-05-15 02:25] LABS: Glucose,Whole Blood 121 mg/dL (70-110)
[2023-05-15 02:57] LABS: Glucose,Whole Blood 120 mg/dL (70-110)
[2023-05-15 04:11] LABS: Glucose,Whole Blood 115 mg/dL (70-110)
[2023-05-15 04:22] LABS: Basophils % (A) 0 %; Eosinophils % (A) 0 %; HCT 28.8 % (39.0-53.0); HGB 9.9 gm/dL (13.0-17.5); Lymphocytes # (A) 1.1 k/uL (1.0-4.8); Lymphocytes % (A) 7 %; MCH 32.2 pg (25.0-35.0); MCHC 34.5 g/dL (31.0-37.0); MCV 93.3 fL (80.0-100.0); Mean Platelet Volume 8.3; Monocytes # (A) 0.7 k/uL (0-1.0); Monocytes % (A) 5 %; Neutrophils # (A) 13.3 k/uL (1.3-7.7); Neutrophils % (A) 87 %; Platelet Count 127 k/uL (150-450); RBC 3.09 m/uL (4.30-5.90); RDW 12.5 % (11.5-15.5); WBC 15.3 k/uL (3.8-10.6)
[2023-05-15] MEDS: HYDROcodone/APAP 5-325MG 1 EACH TAB PO PRN (04:30)
[2023-05-15 04:35] LABS: Ionized Calcium 4.4 mg/dL (4.5-5.3)
[2023-05-15 05:12] LABS: ALT 8 U/L (4-49); AST 42 U/L (17-59); African American GFR (CKD) 16 (>60 ml/min/1.73 sqM); Alkaline Phosphatase 43 U/L (38-126); Anion Gap 10 mmol/L; Blood Urea Nitrogen 48 mg/dL (9-20); Calcium 7.7 mg/dL (8.4-10.2); Carbon Dioxide 19 mmol/L (22-30); Chloride 105 mmol/L (98-107); Glucose 105 mg/dL (74-99); Non-African American GFR(CKD) 14 (>60 ml/min/1.73 sqM); Potassium 4.3 mmol/L (3.5-5.1); Sodium 134 mmol/L (137-145); Total Bilirubin 1.2 mg/dL (0.2-1.3); Total Protein 5.2 g/dL (6.3-8.2)
[2023-05-15 05:56] LABS: Glucose,Whole Blood 122 mg/dL (70-110)
[2023-05-15] MEDS: MIDODRINE 5 MG TAB PO SCH ×3 (05:58→17:06)
--- NOTE | 2023-05-15 06:47 | XR ---
EXAMINATION TYPE: XR chest 1V portable DATE OF EXAM: 05/15/2023 5:47 AM COMPARISON: Chest radiographs from 05/14/2022 TECHNIQUE: XR chest 1V portable Portable AP radiograph of the chest. CLINICAL INDICATION:Male, 68 years old with history of Post Operative Cardiac Surgery; FINDINGS: Lungs/Pleura: No focal subluxation or sizable pneumothorax. Blunting of the right costophrenic angle. Pulmonary vascularity: Unremarkable. Heart/mediastinum: Cardiomediastinal silhouette is mildly enlarged with postsurgical changes.. Ather osclerotic calcifications are seen in the aorta. Left atrial appendage occlusion device identified. Musculoskeletal: No acute osseous pathology. Midline sternotomy wires are noted. Other findings: None Lines/Tubes: Mediastinal drain is suggested. Bilateral chest tubes redemonstrated in stable position. Interval removal of [place] catheter. IMPRESSION: 1. Post surgical changes from cardiac surgery with small right pleural effusion. 2. Bilateral chest tubes without evidence for sizable pneumothorax.
[2023-05-15 06:53] LABS: Glucose,Whole Blood 121 mg/dL (70-110)
[2023-05-15] MEDS ORDERED: CALCIUM GLUCONATE IN NACL 2 GM in SALINE 1 100ML.BAG IVPB ONE (07:01)
[2023-05-15] MEDS: IPRATROPIUM-ALBUTEROL 3 ML NEB INHALATION SCH ×4 (07:51→21:51)
[2023-05-15 08:22] LABS: Glucose,Whole Blood 166 mg/dL (70-110)
[2023-05-15] MEDS: CLOPIDOGREL 75 MG TAB PO SCH (08:24)
[2023-05-15] MEDS: METOPROLOL TARTRATE 12.5 MG TAB PO SCH ×2 (08:24→20:01)
[2023-05-15] MEDS: ASPIRIN 325 MG TAB PO SCH (08:24)
[2023-05-15] MEDS: PANTOPRAZOLE 40 MG TABLET PO SCH (08:24)
[2023-05-15] MEDS: HEPARIN SODIUM,PORCINE/PF 5,000 UNIT/0.5 ML SYRINGE SQ SCH ×3 (08:24→23:07)
[2023-05-15] MEDS: LACTATED RINGERS 1,000 ML IV SCH (08:25)
--- NOTE | 2023-05-15 08:49 | P.PN ---
Subjective Progress Note Date: 05/15/23 Principal diagnosis: Two-vessel coronary artery disease. Past medical history significant for nonischemic cardiomyopathy with an ejection fraction of 25-30% which improved to an ejection fraction of 45-50% with intense medical therapy, history of left ventricular thrombus on transthoracic 2-D echocardiogram completed on 05/23/2023 which was organized and did did not appear acute, history of pulmonary embolus on eliquis on an outpatient basis, hypertension, diabetes mellitus, history of CVA with some residual right-sided weakness, COVID-19 infection in early 2021, acute on chronic kidney disease with a baseline creatinine of 2.0, and prostate disorder. POD #2 Off pump coronary artery bypass grafting x 2. Left internal thoracic artery (in-situ) to left anterior descending artery, saphenous vein from aorta to posterior descending artery, Endoscopic right greater saphenous vein harvest, Left atrial appendage ligation using 35mm AtriClip, Graft flow measurements using the [employer]-St[employer] flow meter system, and an intraoperative transesophageal echocardiogram performed by anesthesia. Postoperative acute blood loss anemia and thrombocytopenia, expected given hemodilution. The patient was seen and examined in follow-up today 05/15/2023 at his bedside in the intensive care unit. He is sitting up to the bedside chair, is awake, alert, oriented 3 and is in no acute distress. The patient reports he feels better today than he did yesterday, denies any complaints of shortness of breath or pain at this time, although he reports that he does have occasional pain with coughing to his chest tube insertion sites. Oxygen saturations are 94% on 2 L nasal cannula and he is achieving 1000 mL on his incentive spirometry with encouragement. Bedside telemetry showing normal sinus rhythm with slight ST elevation in leads II, heart rate 90 bpm. Right IJ cordis remains in place with continuous CVP monitoring, current CVP pressure is 7 mmHg. Dopamine drip remains infusing at 3 mcg/kg/m and insulin drip remains infusing at 4.5 units per hour. Laboratory results this morning show a WBC count of 15.3, hemoglobin 9.9, hematocrit 28.8, platelets 127, sodium 134, potassium 4.3, chloride 105, CO2 19, BUN 48, creatinine 4.03, glucose 105, calcium 7.7 and ionized calcium 4.4. Chest x-ray has been reviewed. He has been afebrile the last 24 hours. Mediastinal/right and left pleural chest tubes remain in place to low continuous wall suction -20 cm H2O. No air leak is present. Draining thin serosanguineous drainage. Mediastinal chest tube drained 10 mL output in the last 8 hours and 40 mL output in the last 24 hours. Right and left pleural chest tubes drained 160 mL output in the last 8 hours and 470 mL output in the last 24 hours. Nelson catheter remains in place for accurate I's and O's, urine output 230 mL in the last 8 hours. Objective - Vital Signs Vital signs: Vital Signs Temp 98.3 F 05/15/23 04:00 Pulse 80 05/15/23 08:04 Resp 14 05/15/23 07:30 BP 119/66 05/15/23 07:30 Pulse Ox 93 L 05/15/23 07:30 FiO2 50 05/13/23 15:13 Intake & Output 05/14/23 05/15/23 05/15/23 18:59 06:59 18:59 Intake Total 2663.410 348.931 26 Output Total 563 527 15 Balance 2100.410 -178.069 11 Weight 107.6 kg 109.2 kg Intake: IV 927 312 26 Cardiac output 30 Lactated Ringers 1,000 ml 275 240 20 @ 20 mls/hr IV .Q24H JESSICA Rx#:[id number] Sodium Chloride 0.9% 500 500 ml 500 ml @ 999 mls/hr IV .Q31M ONE Rx#:[id number] ceFAZolin 2 gm In Sodium 50 Chloride 0.9% 50 ml @ 100 mls/hr IVPB Q8HR JESSICA Rx# :[id number] pressure bags 72 72 6 Intake, IV Titration 98.410 36.931 Amount Insulin Regular 100 unit 78.149 36.931 In Sodium Chloride 0.9% 100 ml @ Per Protocol IV .Q0M JESSICA Rx#:[id number] Norepinephrine 4 mg In 20.261 Sodium Chloride 0.9% 250 ml @ 0.04 MCG/KG/MIN 15. 789 mls/hr IV .Q16H6M JESSICA Rx#:[id number] Oral 1638 Output: Chest Tube Drainage 360 200 left and right pleural 340 190 mediastinal 20 10 Urine 203 327 15 Other: Voiding Method Indwelling Catheter Indwelling Catheter ABP, PAP, CO, CI - Last Documented Arterial Blood Pressure 106/47 Pulmonary Artery Pressure 29/9 Cardiac Output 4.5 Cardiac Index 2.2 - Exam CONSTITUTIONAL: Sitting up to the bedside chair in the intensive care unit, appears comfortable, cooperative, no apparent acute distress. HEENT: Neck is supple, no JVD, no lymphadenopathy. Right IJ Cordis in place and functioning. RESPIRATORY: Lungs sounds essentially clear throughout, diminished to his bilateral bases. Respirations are symmetrical and nonlabored. Currently on 2 L nasal cannula with oxygen saturations 94%. Able to achieve 1000 mL on his incentive spirometry. Strong cough. CARDIOVASCULAR: Regular rhythm and rate. S1 and S2 present, negative for S3, gallop or murmur. Sternum is stable. Palpable peripheral pulses bilaterally, no edema to his bilateral lower extremities. No calf pain or tenderness noted. Heart hugger in place with patient demonstrating appropriate use. Knee-high GENNY hose and sequential compression devices in place to his bilateral lower extremities. GASTROINTESTINAL: Abdomen soft, nontender, nondistended. Active bowel sounds present 4 quadrants. Tolerating diet. Passing flatus. No guarding or rigidity. GENITOURINARY: Nelson present draining clear, yellow urine. Urine Output 230 mL in the last 8 hours INTEGUMENTARY: Skin is warm and dry with no evidence of clubbing or cyanosis. Midline sternal incision clean dry and well approximated, covered with dry intact dressing. Right lower extremity EVH sites well approximated without redness or drainage. NEUROLOGIC: Cranial nerves II through XII intact. No focal deficits. MUSKULOSKELETAL: Able to move all extremities, strength equal bilaterally, generalized weakness. PSYCHIATRIC: Alert and oriented to person place and time, appropriate affect, intact judgment and insight. INVASIVE LINES AND TUBES: Mediastinal/left/right pleural chest tubes present and connected to low continuous wall suction, no air leaks present. Mediastinal tube with 10 mL of thin serosanguineous drainage overnight, 40 mL output in the last 24 hours. Left/right pleural chest tubes with 160 mL of thin serosanguineous drainage overnight, 470 mL output in the last 24 hours. Ventricular epicardial pacemaker wires present, connected to generator, VVI backup rate 50 bpm. Right internal jugular Cordis, right radial arterial line present. Current CVP 7 mmHg. - Allied health notes Allied health notes reviewed: nursing - Labs CBC & Chem 7: 05/15/23 04:05 05/15/23 04:05 Labs: Abnormal Lab Results - Last 24 Hours (Table) 05/14/23 05/14/23 05/14/23 Range/Units 08:47 09:07 10:21 WBC (3.8-10.6) k/uL RBC (4.30-5.90) m/uL Hgb (13.0-17.5) gm/dL Hct (39.0-53.0) % Plt Count (150-450) k/uL Neutrophils # (1.3-7.7) k/uL Sodium (137-145) mmol/L Carbon Dioxide (22-30) mmol/L BUN (9-20) mg/dL Creatinine (0.66-1.25) mg/dL Glucose (74-99) mg/dL POC Glucose (mg/dL) 191 H 190 H (70-110) mg/dL Calcium (8.4-10.2) mg/dL Ionized Calcium Sagrario (4.5-5.3) mg/dL Total Protein (6.3-8.2) g/dL Albumin (3.5-5.0) g/dL Urine Protein 2+ H (Negative) Urine Ketones Trace H (Negative) Urine Blood Large H (Negative) Ur Leukocyte Esterase Moderate H (Negative) Urine RBC >182 H (0-5) /hpf Urine WBC 131 H (0-5) /hpf Amorphous Sediment Occasional H (None) /hpf 05/14/23 05/14/23 05/14/23 Range/Units 11:14 11:56 12:15 WBC (3.8-10.6) k/uL RBC (4.30-5.90) m/uL Hgb (13.0-17.5) gm/dL Hct (39.0-53.0) % Plt Count (150-450) k/uL Neutrophils # (1.3-7.7) k/uL Sodium (137-145) mmol/L Carbon Dioxide (22-30) mmol/L BUN (9-20) mg/dL Creatinine (0.66-1.25) mg/dL Glucose (74-99) mg/dL POC Glucose (mg/dL) 172 H 167 H 251 H (70-110) mg/dL Calcium (8.4-10.2) mg/dL Ionized Calcium Sagrario (4.5-5.3) mg/dL Total Protein (6.3-8.2) g/dL Albumin (3.5-5.0) g/dL Urine Protein (Negative) Urine Ketones (Negative) Urine Blood (Negative) Ur Leukocyte Esterase (Negative) Urine RBC (0-5) /hpf Urine WBC (0-5) /hpf Amorphous Sediment (None) /hpf 05/14/23 05/14/23 05/14/23 Range/Units 13:28 14:02 15:12 WBC (3.8-10.6) k/uL RBC (4.30-5.90) m/uL Hgb (13.0-17.5) gm/dL Hct (39.0-53.0) % Plt Count (150-450) k/uL Neutrophils # (1.3-7.7) k/uL Sodium (137-145) mmol/L Carbon Dioxide (22-30) mmol/L BUN (9-20) mg/dL Creatinine (0.66-1.25) mg/dL Glucose (74-99) mg/dL POC Glucose (mg/dL) 197 H 181 H 143 H (70-110) mg/dL Calcium (8.4-10.2) mg/dL Ionized Calcium Sagrario (4.5-5.3) mg/dL Total Protein (6.3-8.2) g/dL Albumin (3.5-5.0) g/dL Urine Protein (Negative) Urine Ketones (Negative) Urine Blood (Negative) Ur Leukocyte Esterase (Negative) Urine RBC (0-5) /hpf Urine WBC (0-5) /hpf Amorphous Sediment (None) /hpf 05/14/23 05/14/23 05/14/23 Range/Units 16:17 17:11 17:53 WBC (3.8-10.6) k/uL RBC (4.30-5.90) m/uL Hgb (13.0-17.5) gm/dL Hct (39.0-53.0) % Plt Count (150-450) k/uL Neutrophils # (1.3-7.7) k/uL Sodium (137-145) mmol/L Carbon Dioxide (22-30) mmol/L BUN (9-20) mg/dL Creatinine (0.66-1.25) mg/dL Glucose (74-99) mg/dL POC Glucose (mg/dL) 137 H 178 H 200 H (70-110) mg/dL Calcium (8.4-10.2) mg/dL Ionized Calcium Sagrario (4.5-5.3) mg/dL Total Protein (6.3-8.2) g/dL Albumin (3.5-5.0) g/dL Urine Protein (Negative) Urine Ketones (Negative) Urine Blood (Negative) Ur Leukocyte Esterase (Negative) Urine RBC (0-5) /hpf Urine WBC (0-5) /hpf Amorphous Sediment (None) /hpf 05/14/23 05/14/23 05/14/23 Range/Units 19:00 20:09 21:11 WBC (3.8-10.6) k/uL RBC (4.30-5.90) m/uL Hgb (13.0-17.5) gm/dL Hct (39.0-53.0) % Plt Count (150-450) k/uL Neutrophils # (1.3-7.7) k/uL Sodium (137-145) mmol/L Carbon Dioxide (22-30) mmol/L BUN (9-20) mg/dL Creatinine (0.66-1.25) mg/dL Glucose (74-99) mg/dL POC Glucose (mg/dL) 189 H 152 H 143 H (70-110) mg/dL Calcium (8.4-10.2) mg/dL Ionized Calcium Sagrario (4.5-5.3) mg/dL Total Protein (6.3-8.2) g/dL Albumin (3.5-5.0) g/dL Urine Protein (Negative) Urine Ketones (Negative) Urine Blood (Negative) Ur Leukocyte Esterase (Negative) Urine RBC (0-5) /hpf Urine WBC (0-5) /hpf Amorphous Sediment (None) /hpf 05/14/23 05/14/23 05/15/23 Range/Units 22:07 23:50 01:00 WBC (3.8-10.6) k/uL RBC (4.30-5.90) m/uL Hgb (13.0-17.5) gm/dL Hct (39.0-53.0) % Plt Count (150-450) k/uL Neutrophils # (1.3-7.7) k/uL Sodium (137-145) mmol/L Carbon Dioxide (22-30) mmol/L BUN (9-20) mg/dL Creatinine (0.66-1.25) mg/dL Glucose (74-99) mg/dL POC Glucose (mg/dL) 128 H 144 H 132 H (70-110) mg/dL Calcium (8.4-10.2) mg/dL Ionized Calcium Sagrario (4.5-5.3) mg/dL Total Protein (6.3-8.2) g/dL Albumin (3.5-5.0) g/dL Urine Protein (Negative) Urine Ketones (Negative) Urine Blood (Negative) Ur Leukocyte Esterase (Negative) Urine RBC (0-5) /hpf Urine WBC (0-5) /hpf Amorphous Sediment (None) /hpf 05/15/23 05/15/23 05/15/23 Range/Units 02:05 02:55 04:05 WBC 15.3 H (3.8-10.6) k/uL RBC 3.09 L (4.30-5.90) m/uL Hgb 9.9 L (13.0-17.5) gm/dL Hct 28.8 L (39.0-53.0) % Plt Count 127 L (150-450) k/uL Neutrophils # 13.3 H (1.3-7.7) k/uL Sodium (137-145) mmol/L Carbon Dioxide (22-30) mmol/L BUN (9-20) mg/dL Creatinine (0.66-1.25) mg/dL Glucose (74-99) mg/dL POC Glucose (mg/dL) 121 H 120 H (70-110) mg/dL Calcium (8.4-10.2) mg/dL Ionized Calcium Sagrario (4.5-5.3) mg/dL Total Protein (6.3-8.2) g/dL Albumin (3.5-5.0) g/dL Urine Protein (Negative) Urine Ketones (Negative) Urine Blood (Negative) Ur Leukocyte Esterase (Negative) Urine RBC (0-5) /hpf Urine WBC (0-5) /hpf Amorphous Sediment (None) /hpf 05/15/23 05/15/23 05/15/23 Range/Units 04:05 04:09 05:55 WBC (3.8-10.6) k/uL RBC (4.30-5.90) m/uL Hgb (13.0-17.5) gm/dL Hct (39.0-53.0) % Plt Count (150-450) k/uL Neutrophils # (1.3-7.7) k/uL Sodium 134 L (137-145) mmol/L Carbon Dioxide 19 L (22-30) mmol/L BUN 48 H (9-20) mg/dL Creatinine 4.03 H (0.66-1.25) mg/dL Glucose 105 H (74-99) mg/dL POC Glucose (mg/dL) 115 H 122 H (70-110) mg/dL Calcium 7.7 L (8.4-10.2) mg/dL Ionized Calcium Sagrario 4.4 L (4.5-5.3) mg/dL Total Protein 5.2 L (6.3-8.2) g/dL Albumin 3.0 L (3.5-5.0) g/dL Urine Protein (Negative) Urine Ketones (Negative) Urine Blood (Negative) Ur Leukocyte Esterase (Negative) Urine RBC (0-5) /hpf Urine WBC (0-5) /hpf Amorphous Sediment (None) /hpf 05/15/23 Range/Units 06:52 WBC (3.8-10.6) k/uL RBC (4.30-5.90) m/uL Hgb (13.0-17.5) gm/dL Hct (39.0-53.0) % Plt Count (150-450) k/uL Neutrophils # (1.3-7.7) k/uL Sodium (137-145) mmol/L Carbon Dioxide (22-30) mmol/L BUN (9-20) mg/dL Creatinine (0.66-1.25) mg/dL Glucose (74-99) mg/dL POC Glucose (mg/dL) 121 H (70-110) mg/dL Calcium (8.4-10.2) mg/dL Ionized Calcium Sagrario (4.5-5.3) mg/dL Total Protein (6.3-8.2) g/dL Albumin (3.5-5.0) g/dL Urine Protein (Negative) Urine Ketones (Negative) Urine Blood (Negative) Ur Leukocyte Esterase (Negative) Urine RBC (0-5) /hpf Urine WBC (0-5) /hpf Amorphous Sediment (None) /hpf - Imaging and Cardiology Chest x-ray: report reviewed, image reviewed Assessment and Plan Assessment: Two-vessel coronary artery disease, status post off pump 2 vessel coronary artery bypass grafting surgery Nonischemic cardiomyopathy with an EF of 45-50% History of left ventricular thrombus on transthoracic 2-D echocardiogram on 05/23/2023 which was organized and did not appear to be acute History of pulmonary embolus on eliquis on an outpatient basis History of hypertension Diabetes mellitus, with a preoperative hemoglobin A1c 7.4% History of CVA with some residual right-sided weakness COVID-19 infection in early 2021 Chronic kidney disease stage IV with a baseline creatinine of 2.0 Prostate disorder Postoperative acute blood loss anemia and thrombocytopenia, expected given hemodilution Postoperative hypotension, unexpected, resolved Plan: Continue to maximize medical therapy with aspirin, statin, Plavix, beta keara. Will increase beta keara as tolerated. We will restart the patient's Eliquis once his ventricular epicardial pacemaker wires have been removed. Continue dopamine drip at 3 mcg/kg/m. Wean O2 as tolerated. Encourage incentive spirometry use 10 times every hour while awake. Bronchodilators per pulmonology. Increase Midodrine 10 mg by mouth 3 times a day to help with blood pressure support. Will monitor daily labs and chest x-rays. Electrolyte replacement per protocol. GI/DVT prophylaxis. Increase activity as tolerated. PT/OT/cardiac rehab following. Pain control with current medication regimen. No Toradol due to kidney disease. Insulin management per internal medicine service, patient's preoperative hemoglobin A1c was 7.4%. Remove mediastinal chest tube, keep right and left pleural chest tube in place. We will separate his pleural chest tubes today. Continue Nelson catheter for another 24 hours for strict accurate intake and output. Avoid nephrotoxic agents, creatinine today is 4.03. Daily weights. Nephrology consult noted and appreciated. Keep right IJ Cordis in place with continuous CVP monitoring. We will remove his ventricular epicardial pacemaker wires today, bed rest for 1 hour post pacemaker wire removal. More recommendations to follow based on patient's clinical course. Time with Patient: Greater than 30
[2023-05-15] MEDS: DEXTROSE/WATER 1 250ML.BAG with DOPamine DRIP 800 MG IV SCH (08:52)
[2023-05-15] MEDS ORDERED: METOPROLOL TARTRATE 12.5 MG TAB PO STA (09:44)
--- NOTE | 2023-05-15 10:15 | P.PN ---
Subjective Progress Note Date: 05/15/23 Principal diagnosis: Status post CABG, postoperative day #2 This is a 68-year-old male patient with a known history of coronary artery disease, hypertension, hyperlipidemia, diabetes mellitus, benign prostatic hyperplasia, pulmonary embolism anticoagulated with Eliquis. He also has a history of COVID-19 infection and subsequent CVA felt to be secondary to hypercoagulability. In March 2023 at undergone cardiac catheterization that revealed a chronic total occlusion of the right coronary artery which fills by collaterals circulation, chronic total occlusion of the mid LAD by the bifurcation of the large diagonal branch with flush occlusion. The LAD fills by ipsilateral collaterals. He was recommended coronary artery bypass grafting. Echocardiogram revealed moderate LV dysfunction with ejection fraction of 40- 45%. He was brought in today for an elective surgery. He had undergone an off- pump coronary artery bypass grafting 2 with the left internal thoracic artery to the left anterior descending artery, saphenous vein graft from the aorta to the posterior descending artery. Left atrial appendage ligation with a 35mm Atriclip. He is seen postoperatively in the intensive care unit. He is intubated on the mechanical ventilator and assist control mode with a rate of 14, tidal volume 500, FiO2 50% and a PEEP of 10. Initial arterial blood gases revealed a PaO2 of 387, P CO2 of 41 and a pH of 7.31 on 100% FiO2. Sodium 137. Potassium 4.3. Bicarb 20. BUN 39. Creatinine 2.33. Glucose 154. Calcium 7.9. Magnesium 2.4. AST 21. ALT 16. Albumin 3.0. He is currently on dopamine at 2 mcg/kg/m. Milrinone at 0.3 mcg/kg/m. Norepinephrine at 0.06 mcg/kg/m propofol currently on hold. Insulin drip at 6 units per hour. Lactated Ringer's at 50 MLS per hour. PA pressure 43/19. Cardiac output 5.9. Cardiac index 2.8. Backup pacing at a rate of 50 bpm. Right and left pleural chest tubes in place with a small leak. Mediastinal chest tubes 2. Just x-ray reveals postsurgical changes. Bilateral chest tubes without evidence of sizable pneumothorax. Mcgrady-Misha catheter, mediastinal drain, endotracheal and gastric tube secured in place. Patient was reevaluated today on 05/14/2023, patient is doing well, he is postoperative day #1, patient is requiring multiple drips including dopamine at 3 mcg/kg/m, norepinephrine at 0.02 mcg/kg/m, he is on insulin at 4 units per hour, and lactated Ringer's at 40 mL per hour. Cardiac index is 2.2. Cardiac output is 4.5. Urine output is marginal between 15-20 mL per hour. Patient is on 1 L nasal cannula, does not seem to be in distress, sitting at a bedside chair. Chest x-ray showed minimal basilar atelectasis and small pleural effusions with cardiomegaly and postoperative changes. WBC count is 12.9 hemoglobin is 10.7. Basic metabolic profile is normal however his BUN is 43 creatinine is rising up to 2.83, baseline yesterday was 2.33. Patient is achieving about 1000 mL via incentive spirometry Reevaluated today on 05/15/2023, patient is sitting up at the bedside chair, awake, oriented 3, does not seem to be in any distress. Patient is on 2 L nasal cannula, O2 sats is 94%, remains on dopamine drip at 3 mcg/kg/m, his urine output remains marginal and poor, however the patient's creatinine jumped up significantly over the last 24 hours, I believe the patient may have developed acute tubular necrosis from hypotension, nonetheless clinically the patient is doing better than expected. He was seen by nephrology for his renal failure.pleural and mediastinal chest tubes noted, remain in place, Nelson catheter remains in place. Labs were reviewed today, creatinine is up to 4.03 BUN is 48. Hemoglobin is 9.9. WBC count is 15.3.chest x-ray showed mostly postsurgical changes and bilateral chest tubes without evidence of any pneumothorax. Small right-sided pleural effusion is noted. Objective - Vital Signs Vital signs: Vital Signs Temp 98.3 F 05/15/23 08:00 Pulse 82 05/15/23 10:00 Resp 23 05/15/23 10:00 BP 135/54 05/15/23 10:00 Pulse Ox 92 L 05/15/23 10:00 FiO2 50 05/13/23 15:13 Intake & Output 05/14/23 05/15/23 05/15/23 18:59 06:59 18:59 Intake Total 2663.410 348.931 26 Output Total 563 527 15 Balance 2100.410 -178.069 11 Weight 107.6 kg 109.2 kg Intake: IV 927 312 26 Cardiac output 30 Lactated Ringers 1,000 ml 275 240 20 @ 20 mls/hr IV .Q24H [facility] Rx#:[id number] Sodium Chloride 0.9% 500 500 ml 500 ml @ 999 mls/hr IV .Q31M ONE Rx#:[id number] ceFAZolin 2 gm In Sodium 50 Chloride 0.9% 50 ml @ 100 mls/hr IVPB Q8HR [facility] Rx# :[id number] pressure bags 72 72 6 Intake, IV Titration 98.410 36.931 Amount Insulin Regular 100 unit 78.149 36.931 In Sodium Chloride 0.9% 100 ml @ Per Protocol IV .Q0M [facility] Rx#:[id number] Norepinephrine 4 mg In 20.261 Sodium Chloride 0.9% 250 ml @ 0.04 MCG/KG/MIN 15. 789 mls/hr IV .Q16H6M [facility] Rx#:[id number] Oral 1638 Output: Chest Tube Drainage 360 200 left and right pleural 340 190 mediastinal 20 10 Urine 203 327 15 Other: Voiding Method Indwelling Catheter Indwelling Catheter ABP, PAP, CO, CI - Last Documented Arterial Blood Pressure 97/46 Pulmonary Artery Pressure 29/9 Cardiac Output 4.5 Cardiac Index 2.2 - Exam Physical Exam: Revealed a 68-year-old white male in no distress. on 3 L nasal cannula. Head: Atraumatic, normocephalic. HEENT:[Neck is supple.] [No neck masses.] [No thyromegaly.] [No JVD.] Chest: [Crackles at the bases no rhonchi and no wheezes Cardiac Exam: [Normal S1 and S2, no S3 gallop, no murmur.] Abdomen: [Soft, nontender, no megaly, no rebound, no guarding, normal bowel sounds.] Extremities: [No clubbing, trace of bipedal edema, no cyanosis.] Neurological Exam: [No focal neurologic deficit.] Alert oriented 3 Psychiatric: Normal mood affect and normal mental status examination. - Labs CBC & Chem 7: 05/15/23 04:05 05/15/23 04:05 Labs: Abnormal Lab Results - Last 24 Hours (Table) 05/14/23 05/14/23 05/14/23 Range/Units 10:21 11:14 11:56 WBC (3.8-10.6) k/uL RBC (4.30-5.90) m/uL Hgb (13.0-17.5) gm/dL Hct (39.0-53.0) % Plt Count (150-450) k/uL Neutrophils # (1.3-7.7) k/uL Sodium (137-145) mmol/L Carbon Dioxide (22-30) mmol/L BUN (9-20) mg/dL Creatinine (0.66-1.25) mg/dL Glucose (74-99) mg/dL POC Glucose (mg/dL) 190 H 172 H 167 H (70-110) mg/dL Calcium (8.4-10.2) mg/dL Ionized Calcium Sagrario (4.5-5.3) mg/dL Total Protein (6.3-8.2) g/dL Albumin (3.5-5.0) g/dL 05/14/23 05/14/23 05/14/23 Range/Units 12:15 13:28 14:02 WBC (3.8-10.6) k/uL RBC (4.30-5.90) m/uL Hgb (13.0-17.5) gm/dL Hct (39.0-53.0) % Plt Count (150-450) k/uL Neutrophils # (1.3-7.7) k/uL Sodium (137-145) mmol/L Carbon Dioxide (22-30) mmol/L BUN (9-20) mg/dL Creatinine (0.66-1.25) mg/dL Glucose (74-99) mg/dL POC Glucose (mg/dL) 251 H 197 H 181 H (70-110) mg/dL Calcium (8.4-10.2) mg/dL Ionized Calcium Sargario (4.5-5.3) mg/dL Total Protein (6.3-8.2) g/dL Albumin (3.5-5.0) g/dL 05/14/23 05/14/23 05/14/23 Range/Units 15:12 16:17 17:11 WBC (3.8-10.6) k/uL RBC (4.30-5.90) m/uL Hgb (13.0-17.5) gm/dL Hct (39.0-53.0) % Plt Count (150-450) k/uL Neutrophils # (1.3-7.7) k/uL Sodium (137-145) mmol/L Carbon Dioxide (22-30) mmol/L BUN (9-20) mg/dL Creatinine (0.66-1.25) mg/dL Glucose (74-99) mg/dL POC Glucose (mg/dL) 143 H 137 H 178 H (70-110) mg/dL Calcium (8.4-10.2) mg/dL Ionized Calcium Sagrario (4.5-5.3) mg/dL Total Protein (6.3-8.2) g/dL Albumin (3.5-5.0) g/dL 05/14/23 05/14/23 05/14/23 Range/Units 17:53 19:00 20:09 WBC (3.8-10.6) k/uL RBC (4.30-5.90) m/uL Hgb (13.0-17.5) gm/dL Hct (39.0-53.0) % Plt Count (150-450) k/uL Neutrophils # (1.3-7.7) k/uL Sodium (137-145) mmol/L Carbon Dioxide (22-30) mmol/L BUN (9-20) mg/dL Creatinine (0.66-1.25) mg/dL Glucose (74-99) mg/dL POC Glucose (mg/dL) 200 H 189 H 152 H (70-110) mg/dL Calcium (8.4-10.2) mg/dL Ionized Calcium Sagrario (4.5-5.3) mg/dL Total Protein (6.3-8.2) g/dL Albumin (3.5-5.0) g/dL 05/14/23 05/14/23 05/14/23 Range/Units 21:11 22:07 23:50 WBC (3.8-10.6) k/uL RBC (4.30-5.90) m/uL Hgb (13.0-17.5) gm/dL Hct (39.0-53.0) % Plt Count (150-450) k/uL Neutrophils # (1.3-7.7) k/uL Sodium (137-145) mmol/L Carbon Dioxide (22-30) mmol/L BUN (9-20) mg/dL Creatinine (0.66-1.25) mg/dL Glucose (74-99) mg/dL POC Glucose (mg/dL) 143 H 128 H 144 H (70-110) mg/dL Calcium (8.4-10.2) mg/dL Ionized Calcium Sagrario (4.5-5.3) mg/dL Total Protein (6.3-8.2) g/dL Albumin (3.5-5.0) g/dL 05/15/23 05/15/23 05/15/23 Range/Units 01:00 02:05 02:55 WBC (3.8-10.6) k/uL RBC (4.30-5.90) m/uL Hgb (13.0-17.5) gm/dL Hct (39.0-53.0) % Plt Count (150-450) k/uL Neutrophils # (1.3-7.7) k/uL Sodium (137-145) mmol/L Carbon Dioxide (22-30) mmol/L BUN (9-20) mg/dL Creatinine (0.66-1.25) mg/dL Glucose (74-99) mg/dL POC Glucose (mg/dL) 132 H 121 H 120 H (70-110) mg/dL Calcium (8.4-10.2) mg/dL Ionized Calcium Sagrario (4.5-5.3) mg/dL Total Protein (6.3-8.2) g/dL Albumin (3.5-5.0) g/dL 05/15/23 05/15/23 05/15/23 Range/Units 04:05 04:05 04:09 WBC 15.3 H (3.8-10.6) k/uL RBC 3.09 L (4.30-5.90) m/uL Hgb 9.9 L (13.0-17.5) gm/dL Hct 28.8 L (39.0-53.0) % Plt Count 127 L (150-450) k/uL Neutrophils # 13.3 H (1.3-7.7) k/uL Sodium 134 L (137-145) mmol/L Carbon Dioxide 19 L (22-30) mmol/L BUN 48 H (9-20) mg/dL Creatinine 4.03 H (0.66-1.25) mg/dL Glucose 105 H (74-99) mg/dL POC Glucose (mg/dL) 115 H (70-110) mg/dL Calcium 7.7 L (8.4-10.2) mg/dL Ionized Calcium Sagrario 4.4 L (4.5-5.3) mg/dL Total Protein 5.2 L (6.3-8.2) g/dL Albumin 3.0 L (3.5-5.0) g/dL 05/15/23 05/15/23 05/15/23 Range/Units 05:55 06:52 08:21 WBC (3.8-10.6) k/uL RBC (4.30-5.90) m/uL Hgb (13.0-17.5) gm/dL Hct (39.0-53.0) % Plt Count (150-450) k/uL Neutrophils # (1.3-7.7) k/uL Sodium (137-145) mmol/L Carbon Dioxide (22-30) mmol/L BUN (9-20) mg/dL Creatinine (0.66-1.25) mg/dL Glucose (74-99) mg/dL POC Glucose (mg/dL) 122 H 121 H 166 H (70-110) mg/dL Calcium (8.4-10.2) mg/dL Ionized Calcium Sagrario (4.5-5.3) mg/dL Total Protein (6.3-8.2) g/dL Albumin (3.5-5.0) g/dL Assessment and Plan Assessment: Impression: Status post CABG, patient had off-pump coronary artery bypass grafting 2 with a left internal thoracic artery to the left anterior descending artery, saphenous vein graft from the aorta to the posterior descending artery. Left atrial appendage ligation. Postoperative day #2 Acute on chronic kidney disease, I believe the patient may have developed acute tubular necrosis, that being addressed by nephrology on the case. Ischemic cardiomyopathy and LV dysfunction with ejection fraction 40-45% Type 2 diabetes with diabetic nephropathy Benign essential hypertension History of CVA History of pulmonary embolism normally on eliquis. Recommendation: Continue present supportive care measures Continue incentive spirometry Continue aspirin and Plavix beta blockers and statins ambulate as tolerated. continue dopamine for now since the patient has a relatively low urine output. nephrology to address his acute on chronic kidney injury. We will continue to follow Time with Patient: Less than 30
[2023-05-15 10:32] LABS: Glucose,Whole Blood 154 mg/dL (70-110)
[2023-05-15] MEDS ORDERED: ALBUMIN HUMAN 25% 50 ML in EMPTY BAG 1 BAG IVPB ONE (11:25)
[2023-05-15 11:30] LABS: Glucose,Whole Blood 148 mg/dL (70-110)
[2023-05-15] MEDS ORDERED: ALBUMIN HUMAN 5% 250 ML in EMPTY BAG 1 BAG IVPB ONE (12:16)
[2023-05-15 12:17] LABS: Glucose,Whole Blood 164 mg/dL (70-110)
[2023-05-15 12:39] LABS: ABG HCO3 18 mmol/L (21-25); ABG Oxygen Saturation 93.9 % (94-97); ABG PCO2 32 mmHg (35-45); ABG PH 7.37 (7.35-7.45); ABG PO2 66 mmHg (83-108); ABG TCO2 19 mmol/L (19-24)
[2023-05-15 12:41] LABS: Allen Test Performed? no
--- NOTE | 2023-05-15 13:09 | P.PN ---
Subjective Patient is seen for follow-up for acute kidney injury status post coronary artery bypass surgery. Patient has underlying chronic kidney disease NKF stage IV with baseline creatinine around 1.4 to 2 mg/dL Postop day 2. Blood pressure has been low. Midodrine has been increased to 10 mg 3 times a day. Urine output remains at 15-30 mL per hour. Status post albumin this morning. CVP staying at 2-4 No significant complaints of shortness of breath. Serum creatinine increased to 4.0 from 2.8 yesterday. Objective - Vital Signs Vital signs: Vital Signs Temp 98.3 F 05/15/23 12:00 Pulse 79 05/15/23 12:00 Resp 25 H 05/15/23 12:00 BP 107/56 05/15/23 12:00 Pulse Ox 93 L 05/15/23 12:00 FiO2 50 05/13/23 15:13 Intake & Output 05/14/23 05/15/23 05/15/23 18:59 06:59 18:59 Intake Total 2663.410 348.931 480.329 Output Total 563 527 185 Balance 2100.410 -178.069 295.329 Weight 107.6 kg 109.2 kg Intake: IV 927 312 206 Albumin Human 25% 50 ml 50 In Empty Bag 1 bag @ 50 mls/hr IVPB ONCE [facility] Rx#: [id number] Cardiac output 30 Lactated Ringers 1,000 ml 275 240 120 @ 20 mls/hr IV .Q24H [facility] Rx#:[id number] Sodium Chloride 0.9% 500 500 ml 500 ml @ 999 mls/hr IV .Q31M [facility] Rx#:[id number] ceFAZolin 2 gm In Sodium 50 Chloride 0.9% 50 ml @ 100 mls/hr IVPB Q8HR [facility] Rx# :[id number] pressure bags 72 72 36 Intake, IV Titration 98.410 36.931 38.329 Amount Insulin Regular 100 unit 78.149 36.931 38.329 In Sodium Chloride 0.9% 100 ml @ Per Protocol IV .Q0M [facility] Rx#:[id number] Norepinephrine 4 mg In 20.261 Sodium Chloride 0.9% 250 ml @ 0.04 MCG/KG/MIN 15. 789 mls/hr IV .Q16H6M [facility] Rx#:[id number] Oral 1638 236 Output: Chest Tube Drainage 360 200 40 Pleural Catheter Left 0 Pleural Catheter Right 40 left and right pleural 340 190 mediastinal 20 10 Urine 203 327 145 Other: Voiding Method Indwelling Catheter Indwelling Catheter ABP, PAP, CO, CI - Last Documented Arterial Blood Pressure 99/42 Pulmonary Artery Pressure 29/9 Cardiac Output 4.5 Cardiac Index 2.2 - Exam Awake, comfortable, in no acute distress Examination of the heart S1 and S2 Examination lungs bilateral breath sounds are heard Chest tubes are noted Examination lower extremity shows 1+ edema in bilateral lower extremities and 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 - Labs CBC & Chem 7: 05/15/23 04:05 05/15/23 04:05 Labs: Abnormal Lab Results - Last 24 Hours (Table) 05/14/23 05/14/23 05/14/23 Range/Units 13:28 14:02 15:12 WBC (3.8-10.6) k/uL RBC (4.30-5.90) m/uL Hgb (13.0-17.5) gm/dL Hct (39.0-53.0) % Plt Count (150-450) k/uL Neutrophils # (1.3-7.7) k/uL ABG pCO2 (35-45) mmHg ABG pO2 (83-108) mmHg ABG HCO3 (21-25) mmol/L ABG O2 Saturation (94-97) % Sodium (137-145) mmol/L Carbon Dioxide (22-30) mmol/L BUN (9-20) mg/dL Creatinine (0.66-1.25) mg/dL Glucose (74-99) mg/dL POC Glucose (mg/dL) 197 H 181 H 143 H (70-110) mg/dL Calcium (8.4-10.2) mg/dL Ionized Calcium Sagrario (4.5-5.3) mg/dL Total Protein (6.3-8.2) g/dL Albumin (3.5-5.0) g/dL 05/14/23 05/14/23 05/14/23 Range/Units 16:17 17:11 17:53 WBC (3.8-10.6) k/uL RBC (4.30-5.90) m/uL Hgb (13.0-17.5) gm/dL Hct (39.0-53.0) % Plt Count (150-450) k/uL Neutrophils # (1.3-7.7) k/uL ABG pCO2 (35-45) mmHg ABG pO2 (83-108) mmHg ABG HCO3 (21-25) mmol/L ABG O2 Saturation (94-97) % Sodium (137-145) mmol/L Carbon Dioxide (22-30) mmol/L BUN (9-20) mg/dL Creatinine (0.66-1.25) mg/dL Glucose (74-99) mg/dL POC Glucose (mg/dL) 137 H 178 H 200 H (70-110) mg/dL Calcium (8.4-10.2) mg/dL Ionized Calcium Sagrario (4.5-5.3) mg/dL Total Protein (6.3-8.2) g/dL Albumin (3.5-5.0) g/dL 05/14/23 05/14/23 05/14/23 Range/Units 19:00 20:09 21:11 WBC (3.8-10.6) k/uL RBC (4.30-5.90) m/uL Hgb (13.0-17.5) gm/dL Hct (39.0-53.0) % Plt Count (150-450) k/uL Neutrophils # (1.3-7.7) k/uL ABG pCO2 (35-45) mmHg ABG pO2 (83-108) mmHg ABG HCO3 (21-25) mmol/L ABG O2 Saturation (94-97) % Sodium (137-145) mmol/L Carbon Dioxide (22-30) mmol/L BUN (9-20) mg/dL Creatinine (0.66-1.25) mg/dL Glucose (74-99) mg/dL POC Glucose (mg/dL) 189 H 152 H 143 H (70-110) mg/dL Calcium (8.4-10.2) mg/dL Ionized Calcium Sagrario (4.5-5.3) mg/dL Total Protein (6.3-8.2) g/dL Albumin (3.5-5.0) g/dL 05/14/23 05/14/23 05/15/23 Range/Units 22:07 23:50 01:00 WBC (3.8-10.6) k/uL RBC (4.30-5.90) m/uL Hgb (13.0-17.5) gm/dL Hct (39.0-53.0) % Plt Count (150-450) k/uL Neutrophils # (1.3-7.7) k/uL ABG pCO2 (35-45) mmHg ABG pO2 (83-108) mmHg ABG HCO3 (21-25) mmol/L ABG O2 Saturation (94-97) % Sodium (137-145) mmol/L Carbon Dioxide (22-30) mmol/L BUN (9-20) mg/dL Creatinine (0.66-1.25) mg/dL Glucose (74-99) mg/dL POC Glucose (mg/dL) 128 H 144 H 132 H (70-110) mg/dL Calcium (8.4-10.2) mg/dL Ionized Calcium Sagrario (4.5-5.3) mg/dL Total Protein (6.3-8.2) g/dL Albumin (3.5-5.0) g/dL 05/15/23 05/15/23 05/15/23 Range/Units 02:05 02:55 04:05 WBC 15.3 H (3.8-10.6) k/uL RBC 3.09 L (4.30-5.90) m/uL Hgb 9.9 L (13.0-17.5) gm/dL Hct 28.8 L (39.0-53.0) % Plt Count 127 L (150-450) k/uL Neutrophils # 13.3 H (1.3-7.7) k/uL ABG pCO2 (35-45) mmHg ABG pO2 (83-108) mmHg ABG HCO3 (21-25) mmol/L ABG O2 Saturation (94-97) % Sodium (137-145) mmol/L Carbon Dioxide (22-30) mmol/L BUN (9-20) mg/dL Creatinine (0.66-1.25) mg/dL Glucose (74-99) mg/dL POC Glucose (mg/dL) 121 H 120 H (70-110) mg/dL Calcium (8.4-10.2) mg/dL Ionized Calcium Sagrario (4.5-5.3) mg/dL Total Protein (6.3-8.2) g/dL Albumin (3.5-5.0) g/dL 05/15/23 05/15/23 05/15/23 Range/Units 04:05 04:09 05:55 WBC (3.8-10.6) k/uL RBC (4.30-5.90) m/uL Hgb (13.0-17.5) gm/dL Hct (39.0-53.0) % Plt Count (150-450) k/uL Neutrophils # (1.3-7.7) k/uL ABG pCO2 (35-45) mmHg ABG pO2 (83-108) mmHg ABG HCO3 (21-25) mmol/L ABG O2 Saturation (94-97) % Sodium 134 L (137-145) mmol/L Carbon Dioxide 19 L (22-30) mmol/L BUN 48 H (9-20) mg/dL Creatinine 4.03 H (0.66-1.25) mg/dL Glucose 105 H (74-99) mg/dL POC Glucose (mg/dL) 115 H 122 H (70-110) mg/dL Calcium 7.7 L (8.4-10.2) mg/dL Ionized Calcium Sagrario 4.4 L (4.5-5.3) mg/dL Total Protein 5.2 L (6.3-8.2) g/dL Albumin 3.0 L (3.5-5.0) g/dL 05/15/23 05/15/23 05/15/23 Range/Units 06:52 08:21 10:31 WBC (3.8-10.6) k/uL RBC (4.30-5.90) m/uL Hgb (13.0-17.5) gm/dL Hct (39.0-53.0) % Plt Count (150-450) k/uL Neutrophils # (1.3-7.7) k/uL ABG pCO2 (35-45) mmHg ABG pO2 (83-108) mmHg ABG HCO3 (21-25) mmol/L ABG O2 Saturation (94-97) % Sodium (137-145) mmol/L Carbon Dioxide (22-30) mmol/L BUN (9-20) mg/dL Creatinine (0.66-1.25) mg/dL Glucose (74-99) mg/dL POC Glucose (mg/dL) 121 H 166 H 154 H (70-110) mg/dL Calcium (8.4-10.2) mg/dL Ionized Calcium Sagrario (4.5-5.3) mg/dL Total Protein (6.3-8.2) g/dL Albumin (3.5-5.0) g/dL 05/15/23 05/15/23 05/15/23 Range/Units 11:29 12:15 12:37 WBC (3.8-10.6) k/uL RBC (4.30-5.90) m/uL Hgb (13.0-17.5) gm/dL Hct (39.0-53.0) % Plt Count (150-450) k/uL Neutrophils # (1.3-7.7) k/uL ABG pCO2 32 L (35-45) mmHg ABG pO2 66 L (83-108) mmHg ABG HCO3 18 L (21-25) mmol/L ABG O2 Saturation 93.9 L (94-97) % Sodium (137-145) mmol/L Carbon Dioxide (22-30) mmol/L BUN (9-20) mg/dL Creatinine (0.66-1.25) mg/dL Glucose (74-99) mg/dL POC Glucose (mg/dL) 148 H 164 H (70-110) mg/dL Calcium (8.4-10.2) mg/dL Ionized Calcium Sagrario (4.5-5.3) mg/dL Total Protein (6.3-8.2) g/dL Albumin (3.5-5.0) g/dL Microbiology - Last 24 Hours (Table) 05/14/23 08:47 Urine Culture - Final Urine,Voided Assessment and Plan Assessment: 1. Acute kidney injury, hemodynamic ATN with borderline urine output. Blood pressure is on the lower side, maintained on midodrine. Agree with increasing dose. No nephrotoxic agents on board. UA shows 2+ protein and large blood with WBCs 131. 2. Status post coronary artery bypass surgery postop day #2 3. Coronary artery disease with ejection fraction 40-45%. 4. History of PE maintained on a liquid is prior to admission 5. Chronic kidney disease NKF stage IV with baseline creatinine around 2 mg/dL since September 2022. Etiology is likely diabetic kidney disease. UA shows 2+ protein 6. Pyuria rule out UTI Plan: Agree with increasing midodrine Consider Lasix 1 to help with urine output Repeat labs in a.m. Expect creatinine to plateau in 1-2 days if he remains hemodynamically stable. Continue to avoid nephrotoxic agents. No indication for renal replacement therapy today. We will continue to evaluate on a daily basis for need for dialysis.
[2023-05-15 13:11] LABS: Glucose,Whole Blood 190 mg/dL (70-110)
[2023-05-15] MEDS ORDERED: SODIUM BICARB 8.4% 50 ML SYR (1 MEQ/ML) IV STA (13:11)
[2023-05-15 14:10] LABS: Glucose,Whole Blood 188 mg/dL (70-110)
--- NOTE | 2023-05-15 14:46 | P.PN ---
Subjective HISTORY OF PRESENTING ILLNESS Patient is pleasant 68-year-old male with history of diabetes mellitus type 2, CKD, hypertension, previous COVID-19 infection, stroke with EF 25-30% with CAD with CT of the RCA and LAD. Echo had showed improved EF to 45-50% and had been placed on hold directed medical therapy. He was also noted to have apical throm bus and had been placed on anticoagulation. He follows in the office with Dr. Segundo. He underwent off-pump bypass with ARAUZ to LAD and SVG to PDA and left atrial appendage ligation on 05/13. Overall he has been doing well. He remains on dopamine drip at 3. He has been having some occasional shortness of breath however denies any chest pain or pressure. Hemoglobin 10.7, white blood cell count 12.9, platelets 143, and 2.8, AST 23, ALT 11. BP in the 120s over 50s and heart rate in the 70s. 05/15 Patient seen and examined. Patient has had increasing creatinine 2.3-2.8 up to 4.0. He is still making good urine output. Blood pressures borderline in the 120s over 50s. He did receive albumin. Denies any chest pain or pressure. He was having significant ectopy however metoprolol was given. PHYSICAL EXAMINATION Vital signs reviewed. CONSTITUTIONAL: No apparent distress. HEENT: Head is normocephalic. Pupils are equal, round. Sclerae anicteric. Mucous membranes of the mouth are moist. No JVD. No carotid bruit. CHEST EXAMINATION: Lungs are clear to auscultation. No chest wall tenderness is noted on palpation or with deep breathing. HEART EXAMINATION: Regular rate and rhythm. S1, S2 heard. No murmurs, gallops or rub. ABDOMEN: Soft, nontender. Positive bowel sounds. EXTREMITIES: 2+ peripheral pulses, no lower extremity edema and no calf tenderness. NEUROLOGIC EXAMINATION: Patient is awake, alert and oriented x3. ASSESSMENT 1. CAD with SUPERVISOR ROVING LAD, SUPERVISOR ROVING RCA status post ARAUZ to LAD and SVG to PDA 05/13 2. Ischemic cardiomyopathy EF previously 25-30% improved to 45-50% 3. Chronic systolic heart failure 4. Diabetes mellitus type 2 5. Hypertension 6. Chronic kidney disease 7. Previous history of stroke 8. Previous history of LV thrombus PLAN Patient remains on dopamine drip. Continue metoprolol with improvement and ectopy after giving metoprolol. Wean dopamine as able. Continue to hold Aldactone/contrast though. Continue with aspirin and Plavix. Monitor kidney function and urine output. Further recommendations to follow. Objective - Vital Signs Vital signs: Vital Signs Temp 98.3 F 05/15/23 08:00 Pulse 79 05/15/23 11:30 Resp 27 H 05/15/23 11:30 BP 81/52 05/15/23 11:30 Pulse Ox 94 L 05/15/23 11:30 FiO2 50 05/13/23 15:13 Intake & Output 05/14/23 05/15/23 05/15/23 18:59 06:59 18:59 Intake Total 2663.410 348.931 336.329 Output Total 563 527 140 Balance 2100.410 -178.069 196.329 Weight 107.6 kg 109.2 kg Intake: IV 927 312 180 Albumin Human 25% 50 ml 50 In Empty Bag 1 bag @ 50 mls/hr IVPB ONCE ONE Rx#: [id number] Cardiac output 30 Lactated Ringers 1,000 ml 275 240 100 @ 20 mls/hr IV .Q24H [facility] Rx#:[id number] Sodium Chloride 0.9% 500 500 ml 500 ml @ 999 mls/hr IV .Q31M ONE Rx#:[id number] ceFAZolin 2 gm In Sodium 50 Chloride 0.9% 50 ml @ 100 mls/hr IVPB Q8HR [facility] Rx# :[id number] pressure bags 72 72 30 Intake, IV Titration 98.410 36.931 38.329 Amount Insulin Regular 100 unit 78.149 36.931 38.329 In Sodium Chloride 0.9% 100 ml @ Per Protocol IV .Q0M [facility] Rx#:[id number] Norepinephrine 4 mg In 20.261 Sodium Chloride 0.9% 250 ml @ 0.04 MCG/KG/MIN 15. 789 mls/hr IV .Q16H6M [facility] Rx#:[id number] Oral 1638 118 Output: Chest Tube Drainage 360 200 20 Pleural Catheter Left 0 Pleural Catheter Right 20 left and right pleural 340 190 mediastinal 20 10 Urine 203 327 120 Other: Voiding Method Indwelling Catheter Indwelling Catheter ABP, PAP, CO, CI - Last Documented Arterial Blood Pressure 82/37 Pulmonary Artery Pressure 29/9 Cardiac Output 4.5 Cardiac Index 2.2 - Labs CBC & Chem 7: 05/15/23 04:05 05/15/23 04:05 Labs: Abnormal Lab Results - Last 24 Hours (Table) 05/14/23 05/14/23 05/14/23 Range/Units 12:15 13:28 14:02 WBC (3.8-10.6) k/uL RBC (4.30-5.90) m/uL Hgb (13.0-17.5) gm/dL Hct (39.0-53.0) % Plt Count (150-450) k/uL Neutrophils # (1.3-7.7) k/uL Sodium (137-145) mmol/L Carbon Dioxide (22-30) mmol/L BUN (9-20) mg/dL Creatinine (0.66-1.25) mg/dL Glucose (74-99) mg/dL POC Glucose (mg/dL) 251 H 197 H 181 H (70-110) mg/dL Calcium (8.4-10.2) mg/dL Ionized Calcium Sagrario (4.5-5.3) mg/dL Total Protein (6.3-8.2) g/dL Albumin (3.5-5.0) g/dL 05/14/23 05/14/23 05/14/23 Range/Units 15:12 16:17 17:11 WBC (3.8-10.6) k/uL RBC (4.30-5.90) m/uL Hgb (13.0-17.5) gm/dL Hct (39.0-53.0) % Plt Count (150-450) k/uL Neutrophils # (1.3-7.7) k/uL Sodium (137-145) mmol/L Carbon Dioxide (22-30) mmol/L BUN (9-20) mg/dL Creatinine (0.66-1.25) mg/dL Glucose (74-99) mg/dL POC Glucose (mg/dL) 143 H 137 H 178 H (70-110) mg/dL Calcium (8.4-10.2) mg/dL Ionized Calcium Sagrario (4.5-5.3) mg/dL Total Protein (6.3-8.2) g/dL Albumin (3.5-5.0) g/dL 05/14/23 05/14/2323 Range/Units 17:53 19:00 20:09 WBC (3.8-10.6) k/uL RBC (4.30-5.90) m/uL Hgb (13.0-17.5) gm/dL Hct (39.0-53.0) % Plt Count (150-450) k/uL Neutrophils # (1.3-7.7) k/uL Sodium (137-145) mmol/L Carbon Dioxide (22-30) mmol/L BUN (9-20) mg/dL Creatinine (0.66-1.25) mg/dL Glucose (74-99) mg/dL POC Glucose (mg/dL) 200 H 189 H 152 H (70-110) mg/dL Calcium (8.4-10.2) mg/dL Ionized Calcium Sagrario (4.5-5.3) mg/dL Total Protein (6.3-8.2) g/dL Albumin (3.5-5.0) g/dL 05/14/23 05/14/23 05/14/23 Range/Units 21:11 22:07 23:50 WBC (3.8-10.6) k/uL RBC (4.30-5.90) m/uL Hgb (13.0-17.5) gm/dL Hct (39.0-53.0) % Plt Count (150-450) k/uL Neutrophils # (1.3-7.7) k/uL Sodium (137-145) mmol/L Carbon Dioxide (22-30) mmol/L BUN (9-20) mg/dL Creatinine (0.66-1.25) mg/dL Glucose (74-99) mg/dL POC Glucose (mg/dL) 143 H 128 H 144 H (70-110) mg/dL Calcium (8.4-10.2) mg/dL Ionized Calcium Sagrario (4.5-5.3) mg/dL Total Protein (6.3-8.2) g/dL Albumin (3.5-5.0) g/dL 05/15/23 05/15/23 05/15/23 Range/Units 01:00 02:05 02:55 WBC (3.8-10.6) k/uL RBC (4.30-5.90) m/uL Hgb (13.0-17.5) gm/dL Hct (39.0-53.0) % Plt Count (150-450) k/uL Neutrophils # (1.3-7.7) k/uL Sodium (137-145) mmol/L Carbon Dioxide (22-30) mmol/L BUN (9-20) mg/dL Creatinine (0.66-1.25) mg/dL Glucose (74-99) mg/dL POC Glucose (mg/dL) 132 H 121 H 120 H (70-110) mg/dL Calcium (8.4-10.2) mg/dL Ionized Calcium Sagrario (4.5-5.3) mg/dL Total Protein (6.3-8.2) g/dL Albumin (3.5-5.0) g/dL 05/15/23 05/15/23 05/15/23 Range/Units 04:05 04:05 04:09 WBC 15.3 H (3.8-10.6) k/uL RBC 3.09 L (4.30-5.90) m/uL Hgb 9.9 L (13.0-17.5) gm/dL Hct 28.8 L (39.0-53.0) % Plt Count 127 L (150-450) k/uL Neutrophils # 13.3 H (1.3-7.7) k/uL Sodium 134 L (137-145) mmol/L Carbon Dioxide 19 L (22-30) mmol/L BUN 48 H (9-20) mg/dL Creatinine 4.03 H (0.66-1.25) mg/dL Glucose 105 H (74-99) mg/dL POC Glucose (mg/dL) 115 H (70-110) mg/dL Calcium 7.7 L (8.4-10.2) mg/dL Ionized Calcium Sagrario 4.4 L (4.5-5.3) mg/dL Total Protein 5.2 L (6.3-8.2) g/dL Albumin 3.0 L (3.5-5.0) g/dL 05/15/23 05/15/23 05/15/23 Range/Units 05:55 06:52 08:21 WBC (3.8-10.6) k/uL RBC (4.30-5.90) m/uL Hgb (13.0-17.5) gm/dL Hct (39.0-53.0) % Plt Count (150-450) k/uL Neutrophils # (1.3-7.7) k/uL Sodium (137-145) mmol/L Carbon Dioxide (22-30) mmol/L BUN (9-20) mg/dL Creatinine (0.66-1.25) mg/dL Glucose (74-99) mg/dL POC Glucose (mg/dL) 122 H 121 H 166 H (70-110) mg/dL Calcium (8.4-10.2) mg/dL Ionized Calcium Sagrario (4.5-5.3) mg/dL Total Protein (6.3-8.2) g/dL Albumin (3.5-5.0) g/dL 05/15/23 05/15/23 Range/Units 10:31 11:29 WBC (3.8-10.6) k/uL RBC (4.30-5.90) m/uL Hgb (13.0-17.5) gm/dL Hct (39.0-53.0) % Plt Count (150-450) k/uL Neutrophils # (1.3-7.7) k/uL Sodium (137-145) mmol/L Carbon Dioxide (22-30) mmol/L BUN (9-20) mg/dL Creatinine (0.66-1.25) mg/dL Glucose (74-99) mg/dL POC Glucose (mg/dL) 154 H 148 H (70-110) mg/dL Calcium (8.4-10.2) mg/dL Ionized Calcium Sagrario (4.5-5.3) mg/dL Total Protein (6.3-8.2) g/dL Albumin (3.5-5.0) g/dL Microbiology - Last 24 Hours (Table) 05/14/23 08:47 Urine Culture - Final Urine,Voided
[2023-05-15 15:11] LABS: Glucose,Whole Blood 172 mg/dL (70-110)
[2023-05-15] MEDS: ACETAMINOPHEN TAB 500 MG TAB PO PRN (15:11)
[2023-05-15] MEDS: INSULIN REGULAR 100 UNIT in SODIUM CHLORIDE 0.9% 100 ML IV SCH (15:12)
[2023-05-15 16:17] LABS: Glucose,Whole Blood 154 mg/dL (70-110)
[2023-05-15] MEDS: AMIODARONE 200 MG TAB PO SCH (16:19)
[2023-05-15 17:13] LABS: Glucose,Whole Blood 162 mg/dL (70-110)
[2023-05-15] MEDS ORDERED: FUROSEMIDE 10 MG/ML 2 ML VIAL IV ONE (18:02)
[2023-05-15 18:06] LABS: Glucose,Whole Blood 186 mg/dL (70-110)
--- NOTE | 2023-05-15 18:44 | P.PN ---
Subjective Pleasant 68 years old male with past medical history of Diabetes Mellitus, Hypertension, hyperlipidemia, benign prostatic hypertrophy, pulmonary embolism on blood thinner He was admitted for coronary artery disease affecting mainly to vessels and underwent coronary artery bypass surgery yesterday and he was on mechanical ventilation for a short lived time, eventually he got extubated. Comfortable in bed with no chest pain or dyspnea. Hemodynamically stable. Patient has mild worsening of creatinine 2.8, 1.3 yesterday 05/15/2023 Fascia temo bed comfortably with no complaints. Blood pressure still borderline. We will see improvement on . Creatinine up to 4.0. Nephrology was consulted. Patient is status post bolus of 500 mL of normal saline. His urine analysis is abnormal. Urine culture is negative. Bladder scan is negative. We don't a repeat urine culture Patient remains on aspirin Plavix and midodrine by surgery team Objective - Vital Signs Vital signs: Vital Signs Temp 98.3 F 05/15/23 12:00 Pulse 80 05/15/23 15:00 Resp 28 H 05/15/23 15:00 BP 117/60 05/15/23 15:00 Pulse Ox 94 L 05/15/23 15:00 FiO2 50 05/13/23 15:13 Intake & Output 05/14/23 05/15/23 05/15/23 18:59 06:59 18:59 Intake Total 2663.410 040.159 9524.415 Output Total 563 527 263 Balance 2100.410 -275.336 2473.415 Weight 107.6 kg 109.2 kg Intake: IV 927 312 534 Albumin Human 25% 50 ml 50 In Empty Bag 1 bag @ 50 mls/hr IVPB ONCE ONE Rx#: [id number] Albumin Human 5% 250 ml 250 In Empty Bag 1 bag @ 250 mls/hr IVPB ONCE ONE Rx#: [id number] Cardiac output 30 Lactated Ringers 1,000 ml 275 240 180 @ 20 mls/hr IV .Q24H [facility] Rx#:[id number] Sodium Chloride 0.9% 500 500 ml 500 ml @ 999 mls/hr IV .Q31M [facility] Rx#:[id number] ceFAZolin 2 gm In Sodium 50 Chloride 0.9% 50 ml @ 100 mls/hr IVPB Q8HR [facility] Rx# :[id number] pressure bags 72 72 54 Intake, IV Titration 98.410 36.931 82.415 Amount Insulin Regular 100 unit 78.149 36.931 82.415 In Sodium Chloride 0.9% 100 ml @ Per Protocol IV .Q0M [facility] Rx#:[id number] Norepinephrine 4 mg In 20.261 Sodium Chloride 0.9% 250 ml @ 0.04 MCG/KG/MIN 15. 789 mls/hr IV .Q16H6M [facility] Rx#:[id number] Oral 1638 726 Output: Chest Tube Drainage 360 200 60 Pleural Catheter Left 35 Pleural Catheter Right 25 left and right pleural 340 190 mediastinal 20 10 Urine 203 327 203 Other: Voiding Method Indwelling Catheter Indwelling Catheter Indwelling Catheter ABP, PAP, CO, CI - Last Documented Arterial Blood Pressure 127/44 Pulmonary Artery Pressure 29/9 Cardiac Output 4.5 Cardiac Index 2.2 - Exam GENERAL: The patient is alert and oriented x3, not in any acute distress. Well developed, well nourished. HEENT: Pupils are round and equally reacting to light. EOMI. No scleral icterus. No conjunctival pallor. Normocephalic, atraumatic. No pharyngeal erythema. No thyromegaly. CARDIOVASCULAR: S1 and S2 present. No murmurs, rubs, or gallops. PULMONARY: Chest is clear to auscultation, no wheezing , no crackles. ABDOMEN: Soft, nontender, nondistended, normoactive bowel sounds. No palpable organomegaly. MUSCULOSKELETAL: No joint swelling or deformity. EXTREMITIES: No cyanosis, clubbing, or pedal edema. NEUROLOGICAL: Gross neurological examination did not reveal any focal deficits. SKIN: No rashes. no petechiae. - Labs CBC & Chem 7: 05/15/23 04:05 05/15/23 04:05 Labs: Abnormal Lab Results - Last 24 Hours (Table) 05/14/23 05/14/23 05/14/23 Range/Units 17:11 17:53 19:00 WBC (3.8-10.6) k/uL RBC (4.30-5.90) m/uL Hgb (13.0-17.5) gm/dL Hct (39.0-53.0) % Plt Count (150-450) k/uL Neutrophils # (1.3-7.7) k/uL ABG pCO2 (35-45) mmHg ABG pO2 (83-108) mmHg ABG HCO3 (21-25) mmol/L ABG O2 Saturation (94-97) % Sodium (137-145) mmol/L Carbon Dioxide (22-30) mmol/L BUN (9-20) mg/dL Creatinine (0.66-1.25) mg/dL Glucose (74-99) mg/dL POC Glucose (mg/dL) 178 H 200 H 189 H (70-110) mg/dL Calcium (8.4-10.2) mg/dL Ionized Calcium Sagrario (4.5-5.3) mg/dL Total Protein (6.3-8.2) g/dL Albumin (3.5-5.0) g/dL 05/14/23 05/14/23 05/14/23 Range/Units 20:09 21:11 22:07 WBC (3.8-10.6) k/uL RBC (4.30-5.90) m/uL Hgb (13.0-17.5) gm/dL Hct (39.0-53.0) % Plt Count (150-450) k/uL Neutrophils # (1.3-7.7) k/uL ABG pCO2 (35-45) mmHg ABG pO2 (83-108) mmHg ABG HCO3 (21-25) mmol/L ABG O2 Saturation (94-97) % Sodium (137-145) mmol/L Carbon Dioxide (22-30) mmol/L BUN (9-20) mg/dL Creatinine (0.66-1.25) mg/dL Glucose (74-99) mg/dL POC Glucose (mg/dL) 152 H 143 H 128 H (70-110) mg/dL Calcium (8.4-10.2) mg/dL Ionized Calcium Sagrario (4.5-5.3) mg/dL Total Protein (6.3-8.2) g/dL Albumin (3.5-5.0) g/dL 05/14/23 05/15/23 05/15/23 Range/Units 23:50 01:00 02:05 WBC (3.8-10.6) k/uL RBC (4.30-5.90) m/uL Hgb (13.0-17.5) gm/dL Hct (39.0-53.0) % Plt Count (150-450) k/uL Neutrophils # (1.3-7.7) k/uL ABG pCO2 (35-45) mmHg ABG pO2 (83-108) mmHg ABG HCO3 (21-25) mmol/L ABG O2 Saturation (94-97) % Sodium (137-145) mmol/L Carbon Dioxide (22-30) mmol/L BUN (9-20) mg/dL Creatinine (0.66-1.25) mg/dL Glucose (74-99) mg/dL POC Glucose (mg/dL) 144 H 132 H 121 H (70-110) mg/dL Calcium (8.4-10.2) mg/dL Ionized Calcium [place] (4.5-5.3) mg/dL Total Protein (6.3-8.2) g/dL Albumin (3.5-5.0) g/dL 05/15/23 05/15/23 05/15/23 Range/Units 02:55 04:05 04:05 WBC 15.3 H (3.8-10.6) k/uL RBC 3.09 L (4.30-5.90) m/uL Hgb 9.9 L (13.0-17.5) gm/dL Hct 28.8 L (39.0-53.0) % Plt Count 127 L (150-450) k/uL Neutrophils # 13.3 H (1.3-7.7) k/uL ABG pCO2 (35-45) mmHg ABG pO2 (83-108) mmHg ABG HCO3 (21-25) mmol/L ABG O2 Saturation (94-97) % Sodium 134 L (137-145) mmol/L Carbon Dioxide 19 L (22-30) mmol/L BUN 48 H (9-20) mg/dL Creatinine 4.03 H (0.66-1.25) mg/dL Glucose 105 H (74-99) mg/dL POC Glucose (mg/dL) 120 H (70-110) mg/dL Calcium 7.7 L (8.4-10.2) mg/dL Ionized Calcium [place] 4.4 L (4.5-5.3) mg/dL Total Protein 5.2 L (6.3-8.2) g/dL Albumin 3.0 L (3.5-5.0) g/dL 05/15/23 05/15/23 05/15/23 Range/Units 04:09 05:55 06:52 WBC (3.8-10.6) k/uL RBC (4.30-5.90) m/uL Hgb (13.0-17.5) gm/dL Hct (39.0-53.0) % Plt Count (150-450) k/uL Neutrophils # (1.3-7.7) k/uL ABG pCO2 (35-45) mmHg ABG pO2 (83-108) mmHg ABG HCO3 (21-25) mmol/L ABG O2 Saturation (94-97) % Sodium (137-145) mmol/L Carbon Dioxide (22-30) mmol/L BUN (9-20) mg/dL Creatinine (0.66-1.25) mg/dL Glucose (74-99) mg/dL POC Glucose (mg/dL) 115 H 122 H 121 H (70-110) mg/dL Calcium (8.4-10.2) mg/dL Ionized Calcium Sagrario (4.5-5.3) mg/dL Total Protein (6.3-8.2) g/dL Albumin (3.5-5.0) g/dL 05/15/23 05/15/23 05/15/23 Range/Units 08:21 10:31 11:29 WBC (3.8-10.6) k/uL RBC (4.30-5.90) m/uL Hgb (13.0-17.5) gm/dL Hct (39.0-53.0) % Plt Count (150-450) k/uL Neutrophils # (1.3-7.7) k/uL ABG pCO2 (35-45) mmHg ABG pO2 (83-108) mmHg ABG HCO3 (21-25) mmol/L ABG O2 Saturation (94-97) % Sodium (137-145) mmol/L Carbon Dioxide (22-30) mmol/L BUN (9-20) mg/dL Creatinine (0.66-1.25) mg/dL Glucose (74-99) mg/dL POC Glucose (mg/dL) 166 H 154 H 148 H (70-110) mg/dL Calcium (8.4-10.2) mg/dL Ionized Calcium Sagrario (4.5-5.3) mg/dL Total Protein (6.3-8.2) g/dL Albumin (3.5-5.0) g/dL 05/15/23 05/15/23 05/15/23 Range/Units 12:15 12:37 13:10 WBC (3.8-10.6) k/uL RBC (4.30-5.90) m/uL Hgb (13.0-17.5) gm/dL Hct (39.0-53.0) % Plt Count (150-450) k/uL Neutrophils # (1.3-7.7) k/uL ABG pCO2 32 L (35-45) mmHg ABG pO2 66 L (83-108) mmHg ABG HCO3 18 L (21-25) mmol/L ABG O2 Saturation 93.9 L (94-97) % Sodium (137-145) mmol/L Carbon Dioxide (22-30) mmol/L BUN (9-20) mg/dL Creatinine (0.66-1.25) mg/dL Glucose (74-99) mg/dL POC Glucose (mg/dL) 164 H 190 H (70-110) mg/dL Calcium (8.4-10.2) mg/dL Ionized Calcium Sagrario (4.5-5.3) mg/dL Total Protein (6.3-8.2) g/dL Albumin (3.5-5.0) g/dL 05/15/23 05/15/23 05/15/23 Range/Units 14:09 15:09 16:16 WBC (3.8-10.6) k/uL RBC (4.30-5.90) m/uL Hgb (13.0-17.5) gm/dL Hct (39.0-53.0) % Plt Count (150-450) k/uL Neutrophils # (1.3-7.7) k/uL ABG pCO2 (35-45) mmHg ABG pO2 (83-108) mmHg ABG HCO3 (21-25) mmol/L ABG O2 Saturation (94-97) % Sodium (137-145) mmol/L Carbon Dioxide (22-30) mmol/L BUN (9-20) mg/dL Creatinine (0.66-1.25) mg/dL Glucose (74-99) mg/dL POC Glucose (mg/dL) 188 H 172 H 154 H (70-110) mg/dL Calcium (8.4-10.2) mg/dL Ionized Calcium Sagrario (4.5-5.3) mg/dL Total Protein (6.3-8.2) g/dL Albumin (3.5-5.0) g/dL Microbiology - Last 24 Hours (Table) 05/14/23 08:47 Urine Culture - Final Urine,Voided Assessment and Plan Assessment: Coronary artery disease status post CABG surgery on 05/13 Acute kidney injury on chronic kidney disease stage III Cardiomyopathy with ejection fraction 40-45% Diabetes mellitus Hypertension Hyperlipidemia History of pulmonary embolism on Eliquis Leukocytosis, Improving Plan: Continue with this Aspirin and Plavix Continue the breathing treatment Incentive spirometry Nephrology consult Several consultants on the case significant cardiothoracic surgery primary team, pulmonary team and cardiology team Labs and medication reviewed.. Continue same treatment. Continue with symptomatic treatment. Resume home medication. Monitor lytes and vitals. DVT and GI prophylaxis. Further recommendations depends on the clinical course of the patient DVT prophylaxis: Deferred to surgery team GI Prophylaxis: Ppi thank you for consulting us and we will follow up with the
[2023-05-15 20:00] LABS: Glucose,Whole Blood 218 mg/dL (70-110)
[2023-05-15] MEDS: SENNOSIDES-DOCUSATE SODIUM 1 EACH TAB PO SCH (20:01)
[2023-05-15] MEDS: INSULIN ASPART (NovoLOG) 100 UNIT/ML VIAL SQ SCH (20:01)
[2023-05-15] MEDS ORDERED: METOPROLOL TARTRATE 25 MG TAB PO SCH (21:00)
[2023-05-16 04:49] LABS: Basophils % (A) 0 %; Eosinophils # (A) 0.1 k/uL (0-0.7); Eosinophils % (A) 0 %; HCT 26.4 % (39.0-53.0); HGB 9.4 gm/dL (13.0-17.5); Lymphocytes # (A) 0.9 k/uL (1.0-4.8); Lymphocytes % (A) 5 %; MCH 33.7 pg (25.0-35.0); MCHC 35.6 g/dL (31.0-37.0); MCV 94.7 fL (80.0-100.0); Mean Platelet Volume 7.8; Monocytes # (A) 0.6 k/uL (0-1.0); Monocytes % (A) 4 %; Neutrophils # (A) 15.3 k/uL (1.3-7.7); Neutrophils % (A) 90 %; Platelet Count 151 k/uL (150-450); RBC 2.78 m/uL (4.30-5.90); RDW 13.1 % (11.5-15.5); WBC 17.1 k/uL (3.8-10.6)
[2023-05-16 05:18] LABS: ALT 12 U/L (4-49); AST 51 U/L (17-59); African American GFR (CKD) 10 (>60 ml/min/1.73 sqM); Alkaline Phosphatase 63 U/L (38-126); Anion Gap 18 mmol/L; Blood Urea Nitrogen 57 mg/dL (9-20); Calcium 7.7 mg/dL (8.4-10.2); Carbon Dioxide 14 mmol/L (22-30); Chloride 101 mmol/L (98-107); Glucose 200 mg/dL (74-99); Non-African American GFR(CKD) 9 (>60 ml/min/1.73 sqM); Sodium 133 mmol/L (137-145); Total Bilirubin 1.4 mg/dL (0.2-1.3); Total Protein 5.4 g/dL (6.3-8.2)
[2023-05-16 06:06] LABS: Glucose,Whole Blood 281 mg/dL (70-110)
[2023-05-16] MEDS: INSULIN ASPART (NovoLOG) 100 UNIT/ML VIAL SQ SCH ×4 (06:17→20:35)
[2023-05-16] MEDS: PANTOPRAZOLE 40 MG TABLET PO SCH (06:17)
[2023-05-16] MEDS: AMIODARONE 200 MG TAB PO SCH ×2 (06:17→20:35)
[2023-05-16] MEDS: MIDODRINE 5 MG TAB PO SCH ×3 (06:17→18:00)
--- NOTE | 2023-05-16 06:25 | XR ---
EXAMINATION TYPE: XR chest 1V portable DATE OF EXAM: 05/16/2023 5:27 AM COMPARISON: Chest radiographs from 05/15/2023 TECHNIQUE: XR chest 1V portable Portable AP radiograph of the chest. CLINICAL INDICATION:Male, 68 years old with history of Postop CABG; FINDINGS: Lungs/Pleura: No focal consolidation or sizable pneumothorax. Blunting of the right costophrenic angl e redemonstrated. Right basilar subsegmental atelectasis. Pulmonary vascularity: Unremarkable. Heart/mediastinum: Cardiomediastinal silhouette is enlarged with postsurgical changes. Atherosclerot ic calcifications are seen in the aorta. Left atrial appendage occlusion device identified. Musculoskeletal: No acute osseous pathology. Midline sternotomy wires are noted. Other findings: None Lines/Tubes: Bilateral chest tubes redemonstrated in stable position. IMPRESSION: 1. Post surgical changes from cardiac surgery with small right pleural effusion and associated atele ctasis. 2. Bilateral chest tubes without evidence for sizable pneumothorax.
[2023-05-16 07:46] LABS: ABG Base Excess -10.1 mmol/L; ABG HCO3 16 mmol/L (21-25); ABG Oxygen Saturation 93.8 % (94-97); ABG PCO2 28 mmHg (35-45); ABG PH 7.35 (7.35-7.45); ABG PO2 67 mmHg (83-108); ABG TCO2 16 mmol/L (19-24)
[2023-05-16 07:47] LABS: Allen Test Performed? no
[2023-05-16] MEDS: IPRATROPIUM-ALBUTEROL 3 ML NEB INHALATION SCH ×4 (07:52→21:12)
[2023-05-16] MEDS ORDERED: CALCIUM GLUCONATE IN NACL 2 GM in SALINE 1 100ML.BAG IVPB ONE (08:15)
[2023-05-16] MEDS ORDERED: SODIUM BICARB 8.4% 50 ML SYR (1 MEQ/ML) IV STA (08:16)
[2023-05-16] MEDS: HEPARIN SODIUM,PORCINE/PF 5,000 UNIT/0.5 ML SYRINGE SQ SCH ×3 (08:44→23:03)
[2023-05-16] MEDS: ASPIRIN 325 MG TAB PO SCH (08:44)
[2023-05-16] MEDS: CLOPIDOGREL 75 MG TAB PO SCH (08:44)
[2023-05-16] MEDS: METOPROLOL TARTRATE 12.5 MG TAB PO SCH ×2 (08:44→20:36)
[2023-05-16] MEDS: SODIUM CHLORIDE 0.9% 500 ML 500 ML IV SCH (08:46)
--- NOTE | 2023-05-16 08:59 | P.PN ---
Subjective Progress Note Date: 05/16/23 Principal diagnosis: Two-vessel coronary artery disease. Past medical history significant for nonischemic cardiomyopathy with an ejection fraction of 25-30% which improved to an ejection fraction of 45-50% with intense medical therapy, history of left ventricular thrombus on transthoracic 2-D echocardiogram completed on 05/23/2023 which was organized and did did not appear acute, history of pulmonary embolus on eliquis on an outpatient basis, hypertension, diabetes mellitus, history of CVA with some residual right-sided weakness, COVID-19 infection in early 2021, acute on chronic kidney disease with a baseline creatinine of 2.0, and prostate disorder. POD #3 Off pump coronary artery bypass grafting x 2. Left internal thoracic artery (in-situ) to left anterior descending artery, saphenous vein from aorta to posterior descending artery, Endoscopic right greater saphenous vein harvest, Left atrial appendage ligation using 35mm AtriClip, Graft flow measurements using the Zolpy-Stim flow meter system, and an intraoperative transesophageal echocardiogram performed by anesthesia. Postoperative acute blood loss anemia and thrombocytopenia, expected given hemodilution. Acute kidney injury, likely secondary to hypoperfusion and history of chronic kidney disease with a baseline creatinine of 2.0. The patient was seen and examined in follow-up today 05/16/2023 at his bedside in the intensive care unit. He is sitting up to the bedside chair, is awake, alert, oriented 3 and is in no acute apparent distress. Denies any complaints of shortness of breath or pain at this time, although he reports he feels slightly weaker today than he did yesterday. Oxygen saturations are 93% on 2 L nasal cannula and he is achieving 1000 mL on his incentive spirometry up enc ouragement. Bedside telemetry showing normal sinus rhythm heart rate [address] elevation in lead 2. His blood pressure is currently 130/48 on his radial arterial line and his cuff pressure is reading 124/62. His dose of Midorine was increased to 10 mg by mouth 3 times a day yesterday. He remains on dopamine drip at 3 mcg/kg/m for renal dose. He has been afebrile the last 24 hours. Laboratory results this morning show a WBC count of 17.1, hemoglobin 9.4, hematocrit 26.4, platelets 151, sodium 133, potassium 5.0, chloride 101, CO2 14, BUN 57, creatinine 5.94, glucose 200, calcium 7.7 and total bilirubin 1.4. An ABG was also completed this morning which showed a pH of 7.35, pCO2 28, pO2 67, HCO3 16, oxygen saturation 93.8 and base excess -10.1. Ventricular epicardial pacemaker wires were removed without incident yesterday 05/15/2023. Mediastinal chest tube was removed yesterday without incident. Right IJ cordis remains in place with continuous CVP monitoring, current CVP pressure 6 mmHg. Right and left pleural chest tubes remain in place to low continuous wall suction -20 cm H2O. No air leak is present. Draining thin serosanguineous drainage. Right pleural chest tube with 10 mL output in the last 24 hours, left pleural chest tube with 45 mL output in the last 8 hours and 130 mL output in the last 24 hours. Nelson catheter remains in place for accurate I's and O's. 120 mL output of urine in the last 8 hours and 398 mL of urine output in the last 24 hours. A bladder scan was completed at his bedside this morning which showed 13 mL of urine. Chest x-ray was reviewed. Urine culture shows no growth after 18 hours. Objective - Vital Signs Vital signs: Vital Signs Temp 97.5 F L 05/16/23 08:00 Pulse 80 05/16/23 08:03 Resp 30 H 05/16/23 08:00 BP 113/67 05/16/23 08:00 Pulse Ox 99 05/16/23 08:00 FiO2 50 05/13/23 15:13 Intake & Output 05/15/23 05/16/23 05/16/23 18:59 06:59 18:59 Intake Total 8.415 312 26 Output Total 346 296 10 Balance 1682.415 16 16 Weight 110.1 kg Intake: IV 612 312 26 Albumin Human 25% 50 ml 50 In Empty Bag 1 bag @ 50 mls/hr IVPB ONCE ONE Rx#: [id number] Albumin Human 5% 250 ml 250 In Empty Bag 1 bag @ 250 mls/hr IVPB ONCE ONE Rx#: [id number] Lactated Ringers 1,000 ml 240 240 20 @ 20 mls/hr IV .Q24H [facility] Rx#:[id number] pressure bags 72 72 6 Intake, IV Titration 82.415 Amount Insulin Regular 100 unit 82.415 In Sodium Chloride 0.9% 100 ml @ Per Protocol IV .Q0M [facility] Rx#:[id number] Oral 1334 Output: Chest Tube Drainage 103 141 Pleural Catheter Left 55 75 Pleural Catheter Right 48 66 Urine 243 155 10 Other: Voiding Method Indwelling Catheter Indwelling Catheter ABP, PAP, CO, CI - Last Documented Arterial Blood Pressure 127/47 Pulmonary Artery Pressure 29/9 Cardiac Output 4.5 Cardiac Index 2.2 - Exam CONSTITUTIONAL: Sitting up to the bedside chair in the intensive care unit, appears comfortable, cooperative, no apparent acute distress, generalized weakn ess. HEENT: Neck is supple, no JVD, no lymphadenopathy. Right IJ Cordis in place and functioning. RESPIRATORY: Lungs sounds essentially clear throughout, diminished to his bilateral bases. Respirations are symmetrical and nonlabored. Currently on 2 L nasal cannula with oxygen saturations 93%. Able to achieve 1000 mL on his incentive spirometry. Strong cough. CARDIOVASCULAR: Regular rhythm and rate. S1 and S2 present, negative for S3, gallop or murmur. Sternum is stable. Palpable peripheral pulses bilaterally, trace generalized edema. No calf pain or tenderness noted. Heart hugger in place with patient demonstrating appropriate use. Knee-high GENNY hose and sequential compression devices in place to his bilateral lower extremities. GASTROINTESTINAL: Abdomen soft, nontender, nondistended. Active bowel sounds present 4 quadrants. Tolerating diet. Passing flatus. No guarding or rigidity. GENITOURINARY: Nelson present draining clear, yellow urine. Urine Output 120 mL in the last 8 hours, 398 mL output in the last 24 hours. INTEGUMENTARY: Skin is warm and dry with no evidence of clubbing or cyanosis. Midline sternal incision clean dry and well approximated, covered with dry intact dressing. Right lower extremity EVH sites well approximated without redness or drainage. NEUROLOGIC: Cranial nerves II through XII intact. No focal deficits. MUSKULOSKELETAL: Able to move all extremities, strength equal bilaterally, generalized weakness. PSYCHIATRIC: Alert and oriented to person place and time, appropriate affect, intact judgment and insight. INVASIVE LINES AND TUBES: Left/right pleural chest tubes present and connected to low continuous wall suction, no air leaks present. Right pleural chest tube with 10 mL of thin serosanguineous drainage in the last 24 hours. Left pleural chest tubes with 45 mL of thin serosanguineous drainage overnight, 130 mL output in the last 24 hours. Right internal jugular Cordis, right radial arterial line present. Current CVP 6 mmHg. - Allied health notes Allied health notes reviewed: nursing - Labs CBC & Chem 7: 05/16/23 04:01 05/16/23 04:01 Labs: Abnormal Lab Results - Last 24 Hours (Table) 05/15/23 05/15/23 05/15/23 Range/Units 10:31 11:29 12:15 WBC (3.8-10.6) k/uL RBC (4.30-5.90) m/uL Hgb (13.0-17.5) gm/dL Hct (39.0-53.0) % Neutrophils # (1.3-7.7) k/uL Lymphocytes # (1.0-4.8) k/uL ABG pCO2 (35-45) mmHg ABG pO2 (83-108) mmHg ABG HCO3 (21-25) mmol/L ABG Total CO2 (19-24) mmol/L ABG O2 Saturation (94-97) % Sodium (137-145) mmol/L Carbon Dioxide (22-30) mmol/L BUN (9-20) mg/dL Creatinine (0.66-1.25) mg/dL Glucose (74-99) mg/dL POC Glucose (mg/dL) 154 H 148 H 164 H (70-110) mg/dL Calcium (8.4-10.2) mg/dL Total Bilirubin (0.2-1.3) mg/dL Total Protein (6.3-8.2) g/dL Albumin (3.5-5.0) g/dL 05/15/23 05/15/23 05/15/23 Range/Units 12:37 13:10 14:09 WBC (3.8-10.6) k/uL RBC (4.30-5.90) m/uL Hgb (13.0-17.5) gm/dL Hct (39.0-53.0) % Neutrophils # (1.3-7.7) k/uL Lymphocytes # (1.0-4.8) k/uL ABG pCO2 32 L (35-45) mmHg ABG pO2 66 L (83-108) mmHg ABG HCO3 18 L (21-25) mmol/L ABG Total CO2 (19-24) mmol/L ABG O2 Saturation 93.9 L (94-97) % Sodium (137-145) mmol/L Carbon Dioxide (22-30) mmol/L BUN (9-20) mg/dL Creatinine (0.66-1.25) mg/dL Glucose (74-99) mg/dL POC Glucose (mg/dL) 190 H 188 H (70-110) mg/dL Calcium (8.4-10.2) mg/dL Total Bilirubin (0.2-1.3) mg/dL Total Protein (6.3-8.2) g/dL Albumin (3.5-5.0) g/dL 05/15/23 05/15/23 05/15/23 Range/Units 15:09 16:16 17:11 WBC (3.8-10.6) k/uL RBC (4.30-5.90) m/uL Hgb (13.0-17.5) gm/dL Hct (39.0-53.0) % Neutrophils # (1.3-7.7) k/uL Lymphocytes # (1.0-4.8) k/uL ABG pCO2 (35-45) mmHg ABG pO2 (83-108) mmHg ABG HCO3 (21-25) mmol/L ABG Total CO2 (19-24) mmol/L ABG O2 Saturation (94-97) % Sodium (137-145) mmol/L Carbon Dioxide (22-30) mmol/L BUN (9-20) mg/dL Creatinine (0.66-1.25) mg/dL Glucose (74-99) mg/dL POC Glucose (mg/dL) 172 H 154 H 162 H (70-110) mg/dL Calcium (8.4-10.2) mg/dL Total Bilirubin (0.2-1.3) mg/dL Total Protein (6.3-8.2) g/dL Albumin (3.5-5.0) g/dL 05/15/23 05/15/23 05/16/23 Range/Units 18:04 19:58 04:01 WBC 17.1 H (3.8-10.6) k/uL RBC 2.78 L (4.30-5.90) m/uL Hgb 9.4 L (13.0-17.5) gm/dL Hct 26.4 L (39.0-53.0) % Neutrophils # 15.3 H (1.3-7.7) k/uL Lymphocytes # 0.9 L (1.0-4.8) k/uL ABG pCO2 (35-45) mmHg ABG pO2 (83-108) mmHg ABG HCO3 (21-25) mmol/L ABG Total CO2 (19-24) mmol/L ABG O2 Saturation (94-97) % Sodium (137-145) mmol/L Carbon Dioxide (22-30) mmol/L BUN (9-20) mg/dL Creatinine (0.66-1.25) mg/dL Glucose (74-99) mg/dL POC Glucose (mg/dL) 186 H 218 H (70-110) mg/dL Calcium (8.4-10.2) mg/dL Total Bilirubin (0.2-1.3) mg/dL Total Protein (6.3-8.2) g/dL Albumin (3.5-5.0) g/dL 05/16/23 05/16/23 05/16/23 Range/Units 04:01 06:05 07:44 WBC (3.8-10.6) k/uL RBC (4.30-5.90) m/uL Hgb (13.0-17.5) gm/dL Hct (39.0-53.0) % Neutrophils # (1.3-7.7) k/uL Lymphocytes # (1.0-4.8) k/uL ABG pCO2 28 L (35-45) mmHg ABG pO2 67 L (83-108) mmHg ABG HCO3 16 L (21-25) mmol/L ABG Total CO2 16 L (19-24) mmol/L ABG O2 Saturation 93.8 L (94-97) % Sodium 133 L (137-145) mmol/L Carbon Dioxide 14 L (22-30) mmol/L BUN 57 H (9-20) mg/dL Creatinine 5.94 H (0.66-1.25) mg/dL Glucose 200 H (74-99) mg/dL POC Glucose (mg/dL) 281 H (70-110) mg/dL Calcium 7.7 L (8.4-10.2) mg/dL Total Bilirubin 1.4 H (0.2-1.3) mg/dL Total Protein 5.4 L (6.3-8.2) g/dL Albumin 3.0 L (3.5-5.0) g/dL Microbiology - Last 24 Hours (Table) 05/14/23 08:47 Urine Culture - Final Urine,Voided - Imaging and Cardiology Chest x-ray: report reviewed, image reviewed Assessment and Plan Assessment: Two-vessel coronary artery disease, status post off pump 2 vessel coronary artery bypass grafting surgery Nonischemic cardiomyopathy with an EF of 45-50% History of left ventricular thrombus on transthoracic 2-D echocardiogram on 05/23/2023 which was organized and did not appear to be acute History of pulmonary embolus on eliquis on an outpatient basis History of hypertension Diabetes mellitus, with a preoperative hemoglobin A1c 7.4% History of CVA with some residual right-sided weakness COVID-19 infection in early 2021 Chronic kidney disease stage IV with a baseline creatinine of 2.0 Prostate disorder Postoperative acute blood loss anemia and thrombocytopenia, expected given hemodilution Postoperative hypotension, unexpected, resolved Acute kidney injury, hemodynamic ATN with borderline urine output Plan: Continue to maximize medical therapy with aspirin, statin, Plavix, beta keara. Will increase beta keara as tolerated. We will restart the patient's Eliquis prior to discharge. Continue dopamine drip at 3 mcg/kg/m. Wean O2 as tolerated. Encourage incentive spirometry use 10 times every hour while awake. Bronchodilators per pulmonology. Continue Midodrine 10 mg by mouth 3 times a day to help with blood pressure support. Hold for systolic blood pressure greater than 120 mmHg. Will monitor daily labs and chest x-rays. Electrolyte replacement per protocol. GI/DVT prophylaxis. Increase activity as tolerated. PT/OT/cardiac rehab following. Pain control with current medication regimen. No Toradol due to kidney disease. Insulin management per internal medicine service, patient's preoperative hemoglobin A1c was 7.4%. Patient needs tight glucose control to promote of sternal wound healing. Remove right pleural chest tube, keep left pleural chest tube in place. Continue Nelson catheter for another 24 hours for strict accurate intake and output. Avoid nephrotoxic agents, creatinine today is 5.94. One amp of sodium bicarbonate 501 now. Calcium gluconate 2 g IV piggyback 1 now. Daily weights. Sodium bicarbonate drip and potentially Lasix drip will be started by Nephrology today. Keep right IJ Cordis in place with continuous CVP monitoring. ABG 1 now and repeat at 2 PM today. More recommendations to follow based on patient's clinical course. Time with Patient: Greater than 30
[2023-05-16] MEDS ORDERED: INSULIN DETEMIR (LEVEMIR) 100 UNIT/ML SYR SQ SCH (09:49)
[2023-05-16] MEDS: DEXTROSE 5% IN WATER 1,000 ML with SODIUM BICARB (1 MEQ/ML) 150 ML IV SCH (10:18)
--- NOTE | 2023-05-16 10:24 | P.PN ---
Subjective Patient is seen for follow-up for acute kidney injury status post coronary artery bypass surgery. Patient has underlying chronic kidney disease NKF stage IV with baseline creatinine around 1.4 to 2 mg/dL Postop day 3. Urine output remains low overnight at 10-15 mL per hour. It picked up slightly for a couple of hours after 20 mg of Lasix IV push last night. This morning serum creatinine is up to 5.9 mg/dL. Patient is also acidotic with CO2 of 14. White count continues to increase on CBC. Systolic blood pressure around 110-120 mmHg. Maintained on midodrine 10 mg 3 times a day and dopamine drip at 3 mcg/kg/m No significant cough No fever noted Discussed renal replacement therapy with the patient. He is agreeable if we need to start. Also discussed with cardiothoracic surgery. Objective - Vital Signs Vital signs: Vital Signs Temp 97.5 F L 05/16/23 08:00 Pulse 75 05/16/23 10:00 Resp 34 H 05/16/23 10:00 BP 110/53 05/16/23 10:00 Pulse Ox 93 L 05/16/23 09:00 FiO2 50 05/13/23 15:13 Intake & Output 05/15/23 05/16/23 05/16/23 18:59 06:59 18:59 Intake Total 2028.415 312 322 Output Total 346 296 59 Balance 1682.415 16 263 Weight 110.1 kg Intake: IV 612 312 204 Albumin Human 25% 50 ml 50 In Empty Bag 1 bag @ 50 mls/hr IVPB ONCE ONE Rx#: [id number] Albumin Human 5% 250 ml 250 In Empty Bag 1 bag @ 250 mls/hr IVPB ONCE ONE Rx#: [id number] Calcium Gluconate in NaCl 100 2 gm In Saline 1 100ml. bag @ 100 mls/hr IVPB ONCE ONE Rx#:[id number] Lactated Ringers 1,000 ml 240 240 40 @ 20 mls/hr IV .Q24H [facility] Rx#:[id number] Sodium Chloride 0.9% 500 40 ml 500 ml @ 20 mls/hr IV .Q24H [facility] Rx#:[id number] pressure bags 72 72 24 Intake, IV Titration 82.415 Amount Insulin Regular 100 unit 82.415 In Sodium Chloride 0.9% 100 ml @ Per Protocol IV .Q0M [facility] Rx#:[id number] Oral 1334 118 Output: Chest Tube Drainage 103 141 27 Pleural Catheter Left 55 75 27 Pleural Catheter Right 48 66 0 Urine 243 155 32 Other: Voiding Method Indwelling Catheter Indwelling Catheter ABP, PAP, CO, CI - Last Documented Arterial Blood Pressure 107/47 Pulmonary Artery Pressure 29/9 Cardiac Output 4.5 Cardiac Index 2.2 - Exam Awake, comfortable, in no acute distress Examination of the heart S1 and S2 Examination lungs bilateral breath sounds are heard Chest tubes are noted Examination lower extremity shows 1+ edema in bilateral lower extremities and upper extremities BEHAVIORAL HEALTH TECH exam grossly intact - Labs CBC & Chem 7: 05/16/23 04:01 05/16/23 04:01 Labs: Abnormal Lab Results - Last 24 Hours (Table) 05/15/23 05/15/23 05/15/23 Range/Units 10:31 11:29 12:15 WBC (3.8-10.6) k/uL RBC (4.30-5.90) m/uL Hgb (13.0-17.5) gm/dL Hct (39.0-53.0) % Neutrophils # (1.3-7.7) k/uL Lymphocytes # (1.0-4.8) k/uL ABG pCO2 (35-45) mmHg ABG pO2 (83-108) mmHg ABG HCO3 (21-25) mmol/L ABG Total CO2 (19-24) mmol/L ABG O2 Saturation (94-97) % Sodium (137-145) mmol/L Carbon Dioxide (22-30) mmol/L BUN (9-20) mg/dL Creatinine (0.66-1.25) mg/dL Glucose (74-99) mg/dL POC Glucose (mg/dL) 154 H 148 H 164 H (70-110) mg/dL Calcium (8.4-10.2) mg/dL Total Bilirubin (0.2-1.3) mg/dL Total Protein (6.3-8.2) g/dL Albumin (3.5-5.0) g/dL 05/15/23 05/15/23 05/15/23 Range/Units 12:37 13:10 14:09 WBC (3.8-10.6) k/uL RBC (4.30-5.90) m/uL Hgb (13.0-17.5) gm/dL Hct (39.0-53.0) % Neutrophils # (1.3-7.7) k/uL Lymphocytes # (1.0-4.8) k/uL ABG pCO2 32 L (35-45) mmHg ABG pO2 66 L (83-108) mmHg ABG HCO3 18 L (21-25) mmol/L ABG Total CO2 (19-24) mmol/L ABG O2 Saturation 93.9 L (94-97) % Sodium (137-145) mmol/L Carbon Dioxide (22-30) mmol/L BUN (9-20) mg/dL Creatinine (0.66-1.25) mg/dL Glucose (74-99) mg/dL POC Glucose (mg/dL) 190 H 188 H (70-110) mg/dL Calcium (8.4-10.2) mg/dL Total Bilirubin (0.2-1.3) mg/dL Total Protein (6.3-8.2) g/dL Albumin (3.5-5.0) g/dL 05/15/23 05/15/23 05/15/23 Range/Units 15:09 16:16 17:11 WBC (3.8-10.6) k/uL RBC (4.30-5.90) m/uL Hgb (13.0-17.5) gm/dL Hct (39.0-53.0) % Neutrophils # (1.3-7.7) k/uL Lymphocytes # (1.0-4.8) k/uL ABG pCO2 (35-45) mmHg ABG pO2 (83-108) mmHg ABG HCO3 (21-25) mmol/L ABG Total CO2 (19-24) mmol/L ABG O2 Saturation (94-97) % Sodium (137-145) mmol/L Carbon Dioxide (22-30) mmol/L BUN (9-20) mg/dL Creatinine (0.66-1.25) mg/dL Glucose (74-99) mg/dL POC Glucose (mg/dL) 172 H 154 H 162 H (70-110) mg/dL Calcium (8.4-10.2) mg/dL Total Bilirubin (0.2-1.3) mg/dL Total Protein (6.3-8.2) g/dL Albumin (3.5-5.0) g/dL 05/15/23 05/15/23 05/16/23 Range/Units 18:04 19:58 04:01 WBC 17.1 H (3.8-10.6) k/uL RBC 2.78 L (4.30-5.90) m/uL Hgb 9.4 L (13.0-17.5) gm/dL Hct 26.4 L (39.0-53.0) % Neutrophils # 15.3 H (1.3-7.7) k/uL Lymphocytes # 0.9 L (1.0-4.8) k/uL ABG pCO2 (35-45) mmHg ABG pO2 (83-108) mmHg ABG HCO3 (21-25) mmol/L ABG Total CO2 (19-24) mmol/L ABG O2 Saturation (94-97) % Sodium (137-145) mmol/L Carbon Dioxide (22-30) mmol/L BUN (9-20) mg/dL Creatinine (0.66-1.25) mg/dL Glucose (74-99) mg/dL POC Glucose (mg/dL) 186 H 218 H (70-110) mg/dL Calcium (8.4-10.2) mg/dL Total Bilirubin (0.2-1.3) mg/dL Total Protein (6.3-8.2) g/dL Albumin (3.5-5.0) g/dL 05/16/23 05/16/23 05/16/23 Range/Units 04:01 06:05 07:44 WBC (3.8-10.6) k/uL RBC (4.30-5.90) m/uL Hgb (13.0-17.5) gm/dL Hct (39.0-53.0) % Neutrophils # (1.3-7.7) k/uL Lymphocytes # (1.0-4.8) k/uL ABG pCO2 28 L (35-45) mmHg ABG pO2 67 L (83-108) mmHg ABG HCO3 16 L (21-25) mmol/L ABG Total CO2 16 L (19-24) mmol/L ABG O2 Saturation 93.8 L (94-97) % Sodium 133 L (137-145) mmol/L Carbon Dioxide 14 L (22-30) mmol/L BUN 57 H (9-20) mg/dL Creatinine 5.94 H (0.66-1.25) mg/dL Glucose 200 H (74-99) mg/dL POC Glucose (mg/dL) 281 H (70-110) mg/dL Calcium 7.7 L (8.4-10.2) mg/dL Total Bilirubin 1.4 H (0.2-1.3) mg/dL Total Protein 5.4 L (6.3-8.2) g/dL Albumin 3.0 L (3.5-5.0) g/dL Microbiology - Last 24 Hours (Table) 05/14/23 08:47 Urine Culture - Final Urine,Voided Assessment and Plan Assessment: 1. Acute kidney injury, hemodynamic ATN , oliguric. Blood pressure is better with midodrine. No nephrotoxic agents on board. UA shows 2+ protein and large blood with WBCs 131. Discussed renal replacement therapy. We will add Lasix drip along with bicarb drip and if patient remains oliguric he will need to start dialysis in a.m. 2. Status post coronary artery bypass surgery postop day #3 3. Coronary artery disease with ejection fraction 40-45%. 4. History of PE maintained on eliquis prior to admission 5. Chronic kidney disease NKF stage IV with baseline creatinine around 2 mg/dL since September 2022. Etiology is likely diabetic kidney disease. UA shows 2+ protein 6. Pyuria with negative urine cultures Plan: Start bicarb drip Start Lasix drip as patient has minimal urine output. Repeat labs in a.m. We will start hemodialysis in a.m. if no improvement in urine output by tomorrow. Continue to avoid nephrotoxic agents.
--- NOTE | 2023-05-16 11:05 | P.PN ---
Subjective Progress Note Date: 05/16/23 Principal diagnosis: Status post CABG, postoperative day #3 This is a 68-year-old male patient with a known history of coronary artery disease, hypertension, hyperlipidemia, diabetes mellitus, benign prostatic hyperplasia, pulmonary embolism anticoagulated with Eliquis. He also has a history of COVID-19 infection and subsequent CVA felt to be secondary to hypercoagulability. In March 2023 at undergone cardiac catheterization that revealed a chronic total occlusion of the right coronary artery which fills by collaterals circulation, chronic total occlusion of the mid LAD by the bifurcation of the large diagonal branch with flush occlusion. The LAD fills by ipsilateral collaterals. He was recommended coronary artery bypass grafting. Echocardiogram revealed moderate LV dysfunction with ejection fraction of 40- 45%. He was brought in today for an elective surgery. He had undergone an off- pump coronary artery bypass grafting 2 with the left internal thoracic artery to the left anterior descending artery, saphenous vein graft from the aorta to the posterior descending artery. Left atrial appendage ligation with a 35mm Atriclip. He is seen postoperatively in the intensive care unit. He is intubated on the mechanical ventilator and assist control mode with a rate of 14, tidal volume 500, FiO2 50% and a PEEP of 10. Initial arterial blood gases revealed a PaO2 of 387, P CO2 of 41 and a pH of 7.31 on 100% FiO2. Sodium 137. Potassium 4.3. Bicarb 20. BUN 39. Creatinine 2.33. Glucose 154. Calcium 7.9. Magnesium 2.4. AST 21. ALT 16. Albumin 3.0. He is currently on dopamine at 2 mcg/kg/m. Milrinone at 0.3 mcg/kg/m. Norepinephrine at 0.06 mcg/kg/m propofol currently on hold. Insulin drip at 6 units per hour. Lactated Ringer's at 50 MLS per hour. PA pressure 43/19. Cardiac output 5.9. Cardiac index 2.8. Backup pacing at a rate of 50 bpm. Right and left pleural chest tubes in place with a small leak. Mediastinal chest tubes 2. Just x-ray reveals postsurgical changes. Bilateral chest tubes without evidence of sizable pneumothorax. [place] catheter, mediastinal drain, endotracheal and gastric tube secured in place. Patient was reevaluated today on 05/14/2023, patient is doing well, he is postoperative day #1, patient is requiring multiple drips including dopamine at 3 mcg/kg/m, norepinephrine at 0.02 mcg/kg/m, he is on insulin at 4 units per hour, and lactated Ringer's at 40 mL per hour. Cardiac index is 2.2. Cardiac output is 4.5. Urine output is marginal between 15-20 mL per hour. Patient is on 1 L nasal cannula, does not seem to be in distress, sitting at a bedside chair. Chest x-ray showed minimal basilar atelectasis and small pleural effusions with cardiomegaly and postoperative changes. WBC count is 12.9 hemoglobin is 10.7. Basic metabolic profile is normal however his BUN is 43 creatinine is rising up to 2.83, baseline yesterday was 2.33. Patient is achieving about 1000 mL via incentive spirometry Reevaluated today on 05/15/2023, patient is sitting up at the bedside chair, awake, oriented 3, does not seem to be in any distress. Patient is on 2 L nasal cannula, O2 sats is 94%, remains on dopamine drip at 3 mcg/kg/m, his urine output remains marginal and poor, however the patient's creatinine jumped up significantly over the last 24 hours, I believe the patient may have developed acute tubular necrosis from hypotension, nonetheless clinically the patient is doing better than expected. He was seen by nephrology for his renal failure.pleural and mediastinal chest tubes noted, remain in place, Nelson catheter remains in place. Labs were reviewed today, creatinine is up to 4.03 BUN is 48. Hemoglobin is 9.9. WBC count is 15.3.chest x-ray showed mostly postsurgical changes and bilateral chest tubes without evidence of any pneumothorax. Small right-sided pleural effusion is noted. Patient was reevaluated today on 05/16/2023, doing well from the pulmonary perspective, but doing poorly from the renal perspective. Patient continues to develop worsening renal failure, being followed by nephrology, and I believe the patient may be heading towards hemodialysis. Creatinine is up to 5.9 this morning. Bicarb is low. Patient remains on dopamine at 3 mcg/kg/m with very poor urine output. Chest x-ray is showing postsurgical changes and small right- sided pleural effusion no pneumothorax, no evidence of pneumonia . Bicarb is low, creatinine is high, but sugar is 200, his ventricular epicardial pacemaker wires were removed yesterday. Mediastinal chest tube was removed yesterday, continues to have right IJ Cordis in place, and continues to have CVP monitoring. CVP today is 6. Right-sided and left-sided pleural chest tubes remain in place. Nelson catheter remains in place. Patient had only 120 mL of urine output in the last 8 hours. And about 400 in the last 24 hours. Objective - Vital Signs Vital signs: Vital Signs Temp 97.5 F L 05/16/23 08:00 Pulse 75 05/16/23 10:57 Resp 34 H 05/16/23 10:00 BP 110/53 05/16/23 10:00 Pulse Ox 93 L 05/16/23 09:00 FiO2 50 05/13/23 15:13 Intake & Output 05/15/23 05/16/23 05/16/23 18:59 06:59 18:59 Intake Total 2028.415 312 322 Output Total 346 296 59 Balance 1682.415 16 263 Weight 110.1 kg Intake: IV 612 312 204 Albumin Human 25% 50 ml 50 In Empty Bag 1 bag @ 50 mls/hr IVPB ONCE ONE Rx#: [id number] Albumin Human 5% 250 ml 250 In Empty Bag 1 bag @ 250 mls/hr IVPB ONCE ONE Rx#: [id number] Calcium Gluconate in NaCl 100 2 gm In Saline 1 100ml. bag @ 100 mls/hr IVPB ONCE ONE Rx#:[id number] Lactated Ringers 1,000 ml 240 240 40 @ 20 mls/hr IV .Q24H FORMERLY [facility], 1928–1983 Rx#:[id number] Sodium Chloride 0.9% 500 40 ml 500 ml @ 20 mls/hr IV .Q24H FOR[facility]LY [facility], [facility]–1983 Rx#:[id number] pressure bags 72 72 24 Intake, IV Titration 82.415 Amount Insulin Regular 100 unit 82.415 In Sodium Chloride 0.9% 100 ml @ Per Protocol IV .Q0M FOR[facility]LY [facility], [facility]–1983 Rx#:[id number] Oral 1334 118 Output: Chest Tube Drainage 103 141 27 Pleural Catheter Left 55 75 27 Pleural Catheter Right 48 66 0 Urine 243 155 32 Other: Voiding Method Indwelling Catheter Indwelling Catheter ABP, PAP, CO, CI - Last Documented Arterial Blood Pressure 107/47 Pulmonary Artery Pressure 29/9 Cardiac Output 4.5 Cardiac Index 2.2 - Exam Physical Exam: Revealed a 68-year-old white male in no distress. on 3 L nasal cannula. Head: Atraumatic, normocephalic. HEENT:[Neck is supple.] [No neck masses.] [No thyromegaly.] [No JVD.] Chest: [Crackles at the bases no rhonchi and no wheezes Cardiac Exam: [Normal S1 and S2, no S3 gallop, no murmur.] Abdomen: [Soft, nontender, no megaly, no rebound, no guarding, normal bowel sounds.] Extremities: [No clubbing, trace of bipedal edema, no cyanosis.] Neurological Exam: [No focal neurologic deficit.] Alert oriented 3 Psychiatric: Normal mood affect and normal mental status examination. - Labs CBC & Chem 7: 05/16/23 04:01 05/16/23 04:01 Labs: Abnormal Lab Results - Last 24 Hours (Table) 05/15/23 05/15/23 05/15/23 Range/Units 11:29 12:15 12:37 WBC (3.8-10.6) k/uL RBC (4.30-5.90) m/uL Hgb (13.0-17.5) gm/dL Hct (39.0-53.0) % Neutrophils # (1.3-7.7) k/uL Lymphocytes # (1.0-4.8) k/uL ABG pCO2 32 L (35-45) mmHg ABG pO2 66 L (83-108) mmHg ABG HCO3 18 L (21-25) mmol/L ABG Total CO2 (19-24) mmol/L ABG O2 Saturation 93.9 L (94-97) % Sodium (137-145) mmol/L Carbon Dioxide (22-30) mmol/L BUN (9-20) mg/dL Creatinine (0.66-1.25) mg/dL Glucose (74-99) mg/dL POC Glucose (mg/dL) 148 H 164 H (70-110) mg/dL Calcium (8.4-10.2) mg/dL Total Bilirubin (0.2-1.3) mg/dL Total Protein (6.3-8.2) g/dL Albumin (3.5-5.0) g/dL 05/15/23 05/15/23 05/15/23 Range/Units 13:10 14:09 15:09 WBC (3.8-10.6) k/uL RBC (4.30-5.90) m/uL Hgb (13.0-17.5) gm/dL Hct (39.0-53.0) % Neutrophils # (1.3-7.7) k/uL Lymphocytes # (1.0-4.8) k/uL ABG pCO2 (35-45) mmHg ABG pO2 (83-108) mmHg ABG HCO3 (21-25) mmol/L ABG Total CO2 (19-24) mmol/L ABG O2 Saturation (94-97) % Sodium (137-145) mmol/L Carbon Dioxide (22-30) mmol/L BUN (9-20) mg/dL Creatinine (0.66-1.25) mg/dL Glucose (74-99) mg/dL POC Glucose (mg/dL) 190 H 188 H 172 H (70-110) mg/dL Calcium (8.4-10.2) mg/dL Total Bilirubin (0.2-1.3) mg/dL Total Protein (6.3-8.2) g/dL Albumin (3.5-5.0) g/dL 05/15/23 05/15/23 05/15/23 Range/Units 16:16 17:11 18:04 WBC (3.8-10.6) k/uL RBC (4.30-5.90) m/uL Hgb (13.0-17.5) gm/dL Hct (39.0-53.0) % Neutrophils # (1.3-7.7) k/uL Lymphocytes # (1.0-4.8) k/uL ABG pCO2 (35-45) mmHg ABG pO2 (83-108) mmHg ABG HCO3 (21-25) mmol/L ABG Total CO2 (19-24) mmol/L ABG O2 Saturation (94-97) % Sodium (137-145) mmol/L Carbon Dioxide (22-30) mmol/L BUN (9-20) mg/dL Creatinine (0.66-1.25) mg/dL Glucose (74-99) mg/dL POC Glucose (mg/dL) 154 H 162 H 186 H (70-110) mg/dL Calcium (8.4-10.2) mg/dL Total Bilirubin (0.2-1.3) mg/dL Total Protein (6.3-8.2) g/dL Albumin (3.5-5.0) g/dL 05/15/23 05/16/23 05/16/23 Range/Units 19:58 04:01 04:01 WBC 17.1 H (3.8-10.6) k/uL RBC 2.78 L (4.30-5.90) m/uL Hgb 9.4 L (13.0-17.5) gm/dL Hct 26.4 L (39.0-53.0) % Neutrophils # 15.3 H (1.3-7.7) k/uL Lymphocytes # 0.9 L (1.0-4.8) k/uL ABG pCO2 (35-45) mmHg ABG pO2 (83-108) mmHg ABG HCO3 (21-25) mmol/L ABG Total CO2 (19-24) mmol/L ABG O2 Saturation (94-97) % Sodium 133 L (137-145) mmol/L Carbon Dioxide 14 L (22-30) mmol/L BUN 57 H (9-20) mg/dL Creatinine 5.94 H (0.66-1.25) mg/dL Glucose 200 H (74-99) mg/dL POC Glucose (mg/dL) 218 H (70-110) mg/dL Calcium 7.7 L (8.4-10.2) mg/dL Total Bilirubin 1.4 H (0.2-1.3) mg/dL Total Protein 5.4 L (6.3-8.2) g/dL Albumin 3.0 L (3.5-5.0) g/dL 05/16/23 05/16/23 Range/Units 06:05 07:44 WBC (3.8-10.6) k/uL RBC (4.30-5.90) m/uL Hgb (13.0-17.5) gm/dL Hct (39.0-53.0) % Neutrophils # (1.3-7.7) k/uL Lymphocytes # (1.0-4.8) k/uL ABG pCO2 28 L (35-45) mmHg ABG pO2 67 L (83-108) mmHg ABG HCO3 16 L (21-25) mmol/L ABG Total CO2 16 L (19-24) mmol/L ABG O2 Saturation 93.8 L (94-97) % Sodium (137-145) mmol/L Carbon Dioxide (22-30) mmol/L BUN (9-20) mg/dL Creatinine (0.66-1.25) mg/dL Glucose (74-99) mg/dL POC Glucose (mg/dL) 281 H (70-110) mg/dL Calcium (8.4-10.2) mg/dL Total Bilirubin (0.2-1.3) mg/dL Total Protein (6.3-8.2) g/dL Albumin (3.5-5.0) g/dL Microbiology - Last 24 Hours (Table) 05/14/23 08:47 Urine Culture - Final Urine,Voided Assessment and Plan Assessment: Impression: Status post CABG, patient had off-pump coronary artery bypass grafting 2 with a left internal thoracic artery to the left anterior descending artery, saphenous vein graft from the aorta to the posterior descending artery. Left atrial appendage ligation. Postoperative day #3 Acute on chronic kidney disease, I believe the patient may have developed acute tubular necrosis, that being addressed by nephrology on the case. Patient will likely have hemodialysis in the next 24 hours. Ischemic cardiomyopathy and LV dysfunction with ejection fraction 40-45% Type 2 diabetes with diabetic nephropathy Benign essential hypertension History of CVA History of pulmonary embolism normally on eliquis. Recommendation: Agree with hemodialysis, discussed with nephrology on the case. Continue present supportive care measures Continue incentive spirometry Continue aspirin and Plavix beta blockers and statins ambulate as tolerated. continue dopamine for now since the patient has a relatively low urine output. Continue to monitor We will continue to follow Time with Patient: Less than 30
[2023-05-16 11:38] LABS: Glucose,Whole Blood 309 mg/dL (70-110)
[2023-05-16] MEDS: FUROSEMIDE 100 MG in SODIUM CHLORIDE 0.9% 90 ML IV SCH ×2 (11:52→19:30)
[2023-05-16 13:56] LABS: ABG Base Excess -4.6 mmol/L; ABG HCO3 20 mmol/L (21-25); ABG Oxygen Saturation 96.2 % (94-97); ABG PCO2 32 mmHg (35-45); ABG PH 7.41 (7.35-7.45); ABG PO2 78 mmHg (83-108); ABG TCO2 21 mmol/L (19-24)
[2023-05-16 13:58] LABS: Allen Test Performed? no
[2023-05-16 16:27] LABS: Glucose,Whole Blood 307 mg/dL (70-110)
[2023-05-16] MEDS ORDERED: LIDOCAINE 1% INJ 10MG/ML (20 ML MDV) SQ ONE (18:40)
[2023-05-16] MEDS ORDERED: HEPARIN SODIUM 1,000 UN/ML (10ML VL) MISCELLANE ONE (18:40)
[2023-05-16] MEDS: DEXTROSE/WATER 1 250ML.BAG with DOPamine DRIP 800 MG IV SCH (19:31)
--- NOTE | 2023-05-16 20:30 | P.GSCN ---
History of Present Illness History of present illness: 68-year-old gentleman seen into care unit patient had a acute chronic renal failure with high BUN/creatinine consulted for placement of dialysis catheter. Patient had a coronary artery bypass graft on examination Chest is clear few crackles first and second sound present Abdomen is soft nontender Femorals are 1+ bilateral Plan is placement of temporary dialysis catheter right femoral approach risk and complication discussed Past Medical History Past Medical History: Diabetes Mellitus, Hypertension, Prostate Disorder Additional Past Medical History / Comment(s): stroke April 2022-affected memory, reading can be difficult, Covid 2021, slight decreased kidney function, enlarged prostate Last Myocardial Infarction Date:: unknown History of Any Multi-Drug Resistant Organisms: None Reported Past Surgical History: Heart Catheterization, Prostate Surgery Additional Past Surgical History / Comment(s): TURP, recent heart cath. Past Anesthesia/Blood Transfusion Reactions: No Reported Reaction Past Alcohol Use History: None Reported - Past Family History Mother Family Medical History: No Reported History Father Family Medical History: Myocardial Infarction ([place]) Additional Family Medical History / Comment(s): massive [place] @53 Medications and Allergies Home Medications Medication Instructions Recorded Confirmed Type Furosemide [Lasix] 20 mg PO DAILY 05/20/22 05/13/23 History Rosuvastatin [Crestor] 40 mg PO DAILY 05/20/22 05/13/23 History Sacubitril/Valsartan [Entresto 24 1 tab PO BID-W/MEALS 05/20/22 05/13/23 History mg-26 mg Tablet] Spironolactone [Aldactone] 25 mg PO PC-LUNCH 05/20/22 05/13/23 History carvediloL [Coreg] 6.25 mg PO BID-W/MEALS 05/20/22 05/13/23 History metFORMIN HCL 1,000 mg PO BID-W/MEALS 05/20/22 05/13/23 History Apixaban [Eliquis] 5 mg PO BID #0 05/25/22 05/13/23 Rx Aspirin 81 mg PO DAILY 30 Days #30 tab 05/25/22 05/13/23 Rx Liraglutide [Victoza 2-Javon] 1.2 mg SQ DAILY 04/13/23 05/13/23 History Allergies Allergy/AdvReac Type Severity Reaction Status Date / Time atorvastatin [From Lipitor] Allergy Rash/Hives Verified 05/13/23 05:54 Surgical - Exam Vital Signs Temp Pulse Resp BP Pulse Ox 98.6 F 73 18 134/63 97 05/13/23 06:00 05/13/23 06:00 05/13/23 06:00 05/13/23 06:00 05/13/23 06:00 Results - Labs 05/16/23 04:01 05/16/23 04:01 Abnormal Lab Results - Last 24 Hours (Table) 05/16/23 05/16/23 05/16/23 Range/Units 04:01 04:01 04:01 WBC 17.1 H (3.8-10.6) k/uL RBC 2.78 L (4.30-5.90) m/uL Hgb 9.4 L (13.0-17.5) gm/dL Hct 26.4 L (39.0-53.0) % Neutrophils # 15.3 H (1.3-7.7) k/uL Lymphocytes # 0.9 L (1.0-4.8) k/uL ABG pCO2 (35-45) mmHg ABG pO2 (83-108) mmHg ABG HCO3 (21-25) mmol/L ABG Total CO2 (19-24) mmol/L ABG O2 Saturation (94-97) % Sodium 133 L (137-145) mmol/L Carbon Dioxide 14 L (22-30) mmol/L BUN 57 H (9-20) mg/dL Creatinine 5.94 H (0.66-1.25) mg/dL Glucose 200 H (74-99) mg/dL POC Glucose (mg/dL) (70-110) mg/dL Calcium 7.7 L (8.4-10.2) mg/dL Total Bilirubin 1.4 H (0.2-1.3) mg/dL Total Protein 5.4 L (6.3-8.2) g/dL Albumin 3.0 L (3.5-5.0) g/dL Procalcitonin 5.61 H (0.02-0.09) ng/mL 05/16/23 05/16/23 05/16/23 Range/Units 06:05 07:44 11:37 WBC (3.8-10.6) k/uL RBC (4.30-5.90) m/uL Hgb (13.0-17.5) gm/dL Hct (39.0-53.0) % Neutrophils # (1.3-7.7) k/uL Lymphocytes # (1.0-4.8) k/uL ABG pCO2 28 L (35-45) mmHg ABG pO2 67 L (83-108) mmHg ABG HCO3 16 L (21-25) mmol/L ABG Total CO2 16 L (19-24) mmol/L ABG O2 Saturation 93.8 L (94-97) % Sodium (137-145) mmol/L Carbon Dioxide (22-30) mmol/L BUN (9-20) mg/dL Creatinine (0.66-1.25) mg/dL Glucose (74-99) mg/dL POC Glucose (mg/dL) 281 H 309 H (70-110) mg/dL Calcium (8.4-10.2) mg/dL Total Bilirubin (0.2-1.3) mg/dL Total Protein (6.3-8.2) g/dL Albumin (3.5-5.0) g/dL Procalcitonin (0.02-0.09) ng/mL 05/16/23 05/16/23 Range/Units 13:55 16:26 WBC (3.8-10.6) k/uL RBC (4.30-5.90) m/uL Hgb (13.0-17.5) gm/dL Hct (39.0-53.0) % Neutrophils # (1.3-7.7) k/uL Lymphocytes # (1.0-4.8) k/uL ABG pCO2 32 L (35-45) mmHg ABG pO2 78 L (83-108) mmHg ABG HCO3 20 L (21-25) mmol/L ABG Total CO2 (19-24) mmol/L ABG O2 Saturation (94-97) % Sodium (137-145) mmol/L Carbon Dioxide (22-30) mmol/L BUN (9-20) mg/dL Creatinine (0.66-1.25) mg/dL Glucose (74-99) mg/dL POC Glucose (mg/dL) 307 H (70-110) mg/dL Calcium (8.4-10.2) mg/dL Total Bilirubin (0.2-1.3) mg/dL Total Protein (6.3-8.2) g/dL Albumin (3.5-5.0) g/dL Procalcitonin (0.02-0.09) ng/mL Diabetes panel 05/16/23 Range/Units 04:01 Sodium 133 L (137-145) mmol/L Potassium 5.0 (3.5-5.1) mmol/L Chloride 101 (98-107) mmol/L Carbon Dioxide 14 L (22-30) mmol/L BUN 57 H (9-20) mg/dL Creatinine 5.94 H (0.66-1.25) mg/dL Glucose 200 H (74-99) mg/dL Calcium 7.7 L (8.4-10.2) mg/dL AST 51 (17-59) U/L ALT 12 (4-49) U/L Alkaline Phosphatase 63 (38-126) U/L Total Protein 5.4 L (6.3-8.2) g/dL Albumin 3.0 L (3.5-5.0) g/dL Calcium panel 05/16/23 Range/Units 04:01 Calcium 7.7 L (8.4-10.2) mg/dL Albumin 3.0 L (3.5-5.0) g/dL Pituitary panel 05/16/23 Range/Units 04:01 Sodium 133 L (137-145) mmol/L Potassium 5.0 (3.5-5.1) mmol/L Chloride 101 (98-107) mmol/L Carbon Dioxide 14 L (22-30) mmol/L BUN 57 H (9-20) mg/dL Creatinine 5.94 H (0.66-1.25) mg/dL Glucose 200 H (74-99) mg/dL Calcium 7.7 L (8.4-10.2) mg/dL Adrenal panel 05/16/23 Range/Units 04:01 Sodium 133 L (137-145) mmol/L Potassium 5.0 (3.5-5.1) mmol/L Chloride 101 (98-107) mmol/L Carbon Dioxide 14 L (22-30) mmol/L BUN 57 H (9-20) mg/dL Creatinine 5.94 H (0.66-1.25) mg/dL Glucose 200 H (74-99) mg/dL Calcium 7.7 L (8.4-10.2) mg/dL Total Bilirubin 1.4 H (0.2-1.3) mg/dL AST 51 (17-59) U/L ALT 12 (4-49) U/L Alkaline Phosphatase 63 (38-126) U/L Total Protein 5.4 L (6.3-8.2) g/dL Albumin 3.0 L (3.5-5.0) g/dL
--- NOTE | 2023-05-16 20:31 | P.PCN ---
Description of Procedure: Preoperative diagnoses is acute chronic renal failure Posterior same Procedure ultrasound-guided 20 same dialysis catheter placement right femoral approach under 1% lidocaine patient was seen and discussed care unit right groin were prepped and draped applied sterile manner 1% lidocaine for infected right groin ultrasound-guided micropuncture introduced right femoral vein micropuncture guidewire was passed and 4-[place] dilator ultrasound the top of guidewire then we passed a regular guidewire which was which was passed without any resistance dilator advanced. The guidewire then replaced the periwound dialysis catheter on the top of guidewire guidewire was removed flushed with heparin saline and Hep-Lock secured with 3-0 nylon patient tolerated the procedure well
[2023-05-16 20:32] LABS: Glucose,Whole Blood 306 mg/dL (70-110)
[2023-05-16] MEDS: SENNOSIDES-DOCUSATE SODIUM 1 EACH TAB PO SCH (20:36)
[2023-05-16] MEDS: INSULIN DETEMIR (LEVEMIR) 100 UNIT/ML SYR SQ SCH (21:40)
--- NOTE | 2023-05-16 23:36 | P.PN ---
Subjective Pleasant 68 years old male with past medical history of Diabetes Mellitus, Hypertension, hyperlipidemia, benign prostatic hypertrophy, pulmonary embolism on blood thinner He was admitted for coronary artery disease affecting mainly to vessels and underwent coronary artery bypass surgery yesterday and he was on mechanical ventilation for a short lived time, eventually he got extubated. Comfortable in bed with no chest pain or dyspnea. Hemodynamically stable. Patient has mild worsening of creatinine 2.8, 1.3 yesterday 05/15/2023 Fascia temo bed comfortably with no complaints. Blood pressure still borderline. We will see improvement on 15. Creatinine up to 4.0. Nephrology was consulted. Patient is status post bolus of 500 mL of normal saline. His urine analysis is abnormal. Urine culture is negative. Bladder scan is negative. We don't a repeat urine culture Patient remains on aspirin Plavix and midodrine by surgery team 05/16/23 pt is awake alert with no dyspnea, no chest pain ,he denies any specific complaints but his renal function keep worsening and today his creatinine went up to 5.4, he was lasix drip at 20 mg per hour, pt is mostly will need hemodialysis per nephrology team pt is on dobutamine with poor urine output. pt has mild leukocytosis sugar is more 300 so increased levemir to 5 u bid and novolog 5 u tid ac pt is on bicarb drip as well kept on asprin and plavix , and midodrine Objective - Vital Signs Vital signs: Vital Signs Temp 98.6 F 05/16/23 12:00 Pulse 75 05/16/23 19:00 Resp 22 05/16/23 19:00 BP 117/66 05/16/23 19:00 Pulse Ox 96 05/16/23 18:30 FiO2 50 05/13/23 15:13 Intake & Output 05/16/23 05/16/23 05/17/23 06:59 18:59 06:59 Intake Total 312 1681 192.333 Output Total 296 124 4 Balance 16 1557 188.333 Weight 110.1 kg Intake: IV 312 1087 116 Calcium Gluconate in NaCl 100 2 gm In Saline 1 100ml. bag @ 100 mls/hr IVPB ONCE ONE Rx#:[id number] Dextrose 5% in Water 1, 600 75 000 ml @ 75 mls/hr IV . [id number] JESSICA with Sodium Bicarb (1 Meq/ml) 150 ml Rx#:[id number] Furosemide 100 mg In 75 15 Sodium Chloride 0.9% 90 ml @ 15 MG/HR 15 mls/hr IV .Q6H40M [facility] Rx#: [id number] Lactated Ringers 1,000 ml 240 40 @ 20 mls/hr IV .Q24H [facility] Rx#:[id number] Sodium Chloride 0.9% 500 200 20 ml 500 ml @ 20 mls/hr IV .Q24H [facility] Rx#:[id number] pressure bags 72 72 6 Intake, IV Titration 76.333 Amount Furosemide 100 mg In 76.333 Sodium Chloride 0.9% 90 ml @ 15 MG/HR 15 mls/hr IV .Q6H40M [facility] Rx#: [id number] Oral 594 Output: Chest Tube Drainage 141 70 0 Pleural Catheter Left 75 70 0 Pleural Catheter Right 66 0 Urine 155 54 4 Other: Voiding Method Indwelling Catheter Indwelling Catheter Indwelling Catheter # Bowel Movements 1 ABP, PAP, CO, CI - Last Documented Arterial Blood Pressure 120/44 Pulmonary Artery Pressure 29/9 Cardiac Output 4.5 Cardiac Index 2.2 - Exam GENERAL: The patient is alert and oriented x3, not in any acute distress. Well developed, well nourished. HEENT: Pupils are round and equally reacting to light. EOMI. No scleral icterus. No conjunctival pallor. Normocephalic, atraumatic. No pharyngeal erythema. No thyromegaly. CARDIOVASCULAR: S1 and S2 present. No murmurs, rubs, or gallops. PULMONARY: Chest is clear to auscultation, no wheezing , no crackles. ABDOMEN: Soft, nontender, nondistended, normoactive bowel sounds. No palpable organomegaly. MUSCULOSKELETAL: No joint swelling or deformity. EXTREMITIES: No cyanosis, clubbing, or pedal edema. NEUROLOGICAL: Gross neurological examination did not reveal any focal deficits. SKIN: No rashes. no petechiae. - Labs CBC & Chem 7: 05/16/23 04:01 05/16/23 04:01 Labs: Abnormal Lab Results - Last 24 Hours (Table) 05/16/23 05/16/23 05/16/23 Range/Units 04:01 04:01 04:01 WBC 17.1 H (3.8-10.6) k/uL RBC 2.78 L (4.30-5.90) m/uL Hgb 9.4 L (13.0-17.5) gm/dL Hct 26.4 L (39.0-53.0) % Neutrophils # 15.3 H (1.3-7.7) k/uL Lymphocytes # 0.9 L (1.0-4.8) k/uL ABG pCO2 (35-45) mmHg ABG pO2 (83-108) mmHg ABG HCO3 (21-25) mmol/L ABG Total CO2 (19-24) mmol/L ABG O2 Saturation (94-97) % Sodium 133 L (137-145) mmol/L Carbon Dioxide 14 L (22-30) mmol/L BUN 57 H (9-20) mg/dL Creatinine 5.94 H (0.66-1.25) mg/dL Glucose 200 H (74-99) mg/dL POC Glucose (mg/dL) (70-110) mg/dL Calcium 7.7 L (8.4-10.2) mg/dL Total Bilirubin 1.4 H (0.2-1.3) mg/dL Total Protein 5.4 L (6.3-8.2) g/dL Albumin 3.0 L (3.5-5.0) g/dL Procalcitonin 5.61 H (0.02-0.09) ng/mL 05/16/23 05/16/23 05/16/23 Range/Units 06:05 07:44 11:37 WBC (3.8-10.6) k/uL RBC (4.30-5.90) m/uL Hgb (13.0-17.5) gm/dL Hct (39.0-53.0) % Neutrophils # (1.3-7.7) k/uL Lymphocytes # (1.0-4.8) k/uL ABG pCO2 28 L (35-45) mmHg ABG pO2 67 L (83-108) mmHg ABG HCO3 16 L (21-25) mmol/L ABG Total CO2 16 L (19-24) mmol/L ABG O2 Saturation 93.8 L (94-97) % Sodium (137-145) mmol/L Carbon Dioxide (22-30) mmol/L BUN (9-20) mg/dL Creatinine (0.66-1.25) mg/dL Glucose (74-99) mg/dL POC Glucose (mg/dL) 281 H 309 H (70-110) mg/dL Calcium (8.4-10.2) mg/dL Total Bilirubin (0.2-1.3) mg/dL Total Protein (6.3-8.2) g/dL Albumin (3.5-5.0) g/dL Procalcitonin (0.02-0.09) ng/mL 05/16/23 05/16/23 05/16/23 Range/Units 13:55 16:26 20:31 WBC (3.8-10.6) k/uL RBC (4.30-5.90) m/uL Hgb (13.0-17.5) gm/dL Hct (39.0-53.0) % Neutrophils # (1.3-7.7) k/uL Lymphocytes # (1.0-4.8) k/uL ABG pCO2 32 L (35-45) mmHg ABG pO2 78 L (83-108) mmHg ABG HCO3 20 L (21-25) mmol/L ABG Total CO2 (19-24) mmol/L ABG O2 Saturation (94-97) % Sodium (137-145) mmol/L Carbon Dioxide (22-30) mmol/L BUN (9-20) mg/dL Creatinine (0.66-1.25) mg/dL Glucose (74-99) mg/dL POC Glucose (mg/dL) 307 H 306 H (70-110) mg/dL Calcium (8.4-10.2) mg/dL Total Bilirubin (0.2-1.3) mg/dL Total Protein (6.3-8.2) g/dL Albumin (3.5-5.0) g/dL Procalcitonin (0.02-0.09) ng/mL Assessment and Plan Assessment: Coronary artery disease status post CABG surgery on 05/13 Acute kidney injury on chronic kidney disease stage III Cardiomyopathy with ejection fraction 40-45% Diabetes mellitus Hypertension Hyperlipidemia History of pulmonary embolism on Eliquis Leukocytosis, Improving Plan: Continue with this Aspirin and Plavix on lasix drip possible hemodialysis per nephrology team Continue the breathing treatment Incentive spirometry Nephrology consult Several consultants on the case significant cardiothoracic surgery primary team, pulmonary team and cardiology team Labs and medication reviewed.. Continue same treatment. Continue with symptomatic treatment. Resume home medication. Monitor lytes and vitals. DVT and GI prophylaxis. Further recommendations depends on the clinical course of the patient DVT prophylaxis: Deferred to surgery team GI Prophylaxis: Ppi thank you for consulting us and we will follow up with the
[2023-05-17] MEDS: SODIUM CHLORIDE 0.9% IV SCH ×2 (00:29→10:05)
[2023-05-17] MEDS: FUROSEMIDE IV SCH ×2 (00:29→10:05)
[2023-05-17] MEDS: DEXTROSE 5% IN WATER 1,000 ML with SODIUM BICARB (1 MEQ/ML) 150 ML IV SCH (00:33)
[2023-05-17 02:04] LABS: HCT 22.1 % (39.0-53.0); HGB 7.9 gm/dL (13.0-17.5); MCH 33.6 pg (25.0-35.0); MCHC 35.7 g/dL (31.0-37.0); MCV 94.2 fL (80.0-100.0); Mean Platelet Volume 8.9; Platelet Count 136 k/uL (150-450); RBC 2.35 m/uL (4.30-5.90); RDW 13.1 % (11.5-15.5)
[2023-05-17 05:07] LABS: ABG Base Excess -1.9 mmol/L; ABG HCO3 23 mmol/L (21-25); ABG Oxygen Saturation 97.4 % (94-97); ABG PCO2 35 mmHg (35-45); ABG PH 7.42 (7.35-7.45); ABG PO2 87 mmHg (83-108); ABG TCO2 24 mmol/L (19-24)
[2023-05-17 05:11] LABS: Allen Test Performed? no
[2023-05-17 05:17] LABS: Basophils % (A) 0 %; Eosinophils # (A) 0.2 k/uL (0-0.7); Eosinophils % (A) 2 %; HCT 22.1 % (39.0-53.0); HGB 7.7 gm/dL (13.0-17.5); Lymphocytes # (A) 0.8 k/uL (1.0-4.8); Lymphocytes % (A) 6 %; MCH 33.3 pg (25.0-35.0); MCHC 35.1 g/dL (31.0-37.0); MCV 94.9 fL (80.0-100.0); Mean Platelet Volume 8.2; Monocytes # (A) 0.5 k/uL (0-1.0); Monocytes % (A) 4 %; Neutrophils # (A) 11.3 k/uL (1.3-7.7); Neutrophils % (A) 87 %; Platelet Count 140 k/uL (150-450); RBC 2.32 m/uL (4.30-5.90); RDW 12.8 % (11.5-15.5)
[2023-05-17 05:19] LABS: INR 1.1 (<1.2); Partial Thromboplastin Time 43.5 sec (22.0-30.0)
[2023-05-17 05:59] LABS: Glucose,Whole Blood 264 mg/dL (70-110)
[2023-05-17 06:04] LABS: ALT 16 U/L (4-49); AST 103 U/L (17-59); African American GFR (CKD) 8 (>60 ml/min/1.73 sqM); Albumin 2.5 g/dL (3.5-5.0); Alkaline Phosphatase 75 U/L (38-126); Anion Gap 14 mmol/L; Blood Urea Nitrogen 67 mg/dL (9-20); Calcium 7.2 mg/dL (8.4-10.2); Carbon Dioxide 21 mmol/L (22-30); Chloride 97 mmol/L (98-107); Glucose 226 mg/dL (74-99); Magnesium 2.1 mg/dL (1.6-2.3); Non-African American GFR(CKD) 7 (>60 ml/min/1.73 sqM); Potassium 4.1 mmol/L (3.5-5.1); Sodium 132 mmol/L (137-145); Total Bilirubin 0.8 mg/dL (0.2-1.3); Total Protein 4.6 g/dL (6.3-8.2)
[2023-05-17] MEDS: MIDODRINE 5 MG TAB PO SCH ×3 (06:33→18:17)
[2023-05-17] MEDS: PANTOPRAZOLE 40 MG TABLET PO SCH (06:33)
[2023-05-17] MEDS: INSULIN DETEMIR (LEVEMIR) 100 UNIT/ML SYR SQ SCH (07:07)
[2023-05-17] MEDS: INSULIN ASPART (NovoLOG) 100 UNIT/ML VIAL SQ SCH (07:07)
--- NOTE | 2023-05-17 07:07 | XR ---
EXAMINATION TYPE: XR chest 1V portable DATE OF EXAM: 05/17/2023 6:05 AM COMPARISON: Chest radiograph from one day prior. TECHNIQUE: XR chest 1V portable Frontal view of the chest. CLINICAL INDICATION:Male, 68 years old with history of Postop CABG; FINDINGS: Lungs/Pleura: Blunting of the right costophrenic angle There is no evidence of left pleural effusion, focal consolidation, or pneumothorax. Pulmonary vascularity: Unremarkable. Heart/mediastinum: Cardiomediastinal silhouette is enlarged and stable. Left atrial appendage occlusi on device is present. Musculoskeletal: Multiple level degenerative disc disease changes seen throughout the spine. Midline sternotomy wires are noted. Other findings: None Lines/Tubes: Left thoracotomy tube is present without evidence of pneumothorax. IMPRESSION: Stable exam with thoracotomy tube in place. No evidence for pneumothorax. Mild cardiomegaly and right pleural effusion.
[2023-05-17] MEDS ORDERED: CALCIUM GLUCONATE IN NACL 2 GM in SALINE 1 100ML.BAG IVPB ONE (07:30)
[2023-05-17] MEDS ORDERED: INSULIN ASPART (NovoLOG) 100 UNIT/ML VIAL SQ SCH (07:30)
[2023-05-17] MEDS ORDERED: SENNOSIDES-DOCUSATE SODIUM 1 EACH TAB PO PRN (07:52)
[2023-05-17] MEDS: METOPROLOL TARTRATE 12.5 MG TAB PO SCH ×3 (08:56→20:04)
[2023-05-17] MEDS: IPRATROPIUM-ALBUTEROL 3 ML NEB INHALATION SCH ×4 (08:57→20:18)
[2023-05-17] MEDS: CLOPIDOGREL 75 MG TAB PO SCH (09:02)
[2023-05-17] MEDS: HEPARIN SODIUM,PORCINE/PF 5,000 UNIT/0.5 ML SYRINGE SQ SCH ×2 (09:02→16:23)
[2023-05-17] MEDS: ASPIRIN 325 MG TAB PO SCH (09:02)
[2023-05-17] MEDS: AMIODARONE 200 MG TAB PO SCH ×2 (09:02→20:04)
[2023-05-17] MEDS ORDERED: MD COMMUNICATION TO PHARMACY 1 EACH MISC PO PRN (09:43)
--- NOTE | 2023-05-17 09:43 | P.PN ---
Subjective Progress Note Date: 05/17/23 Principal diagnosis: Two-vessel coronary artery disease. Previous medical history of nonischemic cardiomyopathy with EF 25-30% with improvement EF of 45-50% with intense medical therapy, chronic LV thrombus, pulmonary embolus on eliquis outpatient, hypertension, hyperlipidemia, diabetes mellitus, CVA with residual right-sided weakness, COVID-19 infection in early 2021, chronic kidney disease stage IV with baseline creatinine of 2.0, and BPH status post TURP POD #4 Off pump coronary artery bypass grafting x 2. Left internal thoracic artery (in-situ) to left anterior descending artery, saphenous vein from aorta to posterior descending artery, endoscopic right greater saphenous vein harvest, left atrial appendage ligation using 35mm AtriClip, graft flow measurements usin g the [employer] System-deltaDNA flow meter system, and intraoperative transesophageal echocardiogram performed by anesthesia. Postoperative acute blood loss anemia and thrombocytopenia, expected given hemodilution Intra and postoperative hypotension, unexpected Acute kidney injury, likely secondary to hypoperfusion, status post temporary hemodialysis catheter The patient was seen and examined sitting up in bed in the ICU in no acute distress. He denies any pain or shortness of breath currently. Remains in sinus rhythm with PACs, blood pressure marginal on dopamine, IV lasix and IV sodium bicarb as well as oral midodrine. Urine output low, only 126 mL in the last 24 hours. Hemodialysis catheter placed yesterday, patient to receive HD today per nephro. Right internal jugular Cordis, right radial arterial line, left pleural chest tube remains present. Chest x-ray, labs reviewed. Hemoglobin 7.7, down from 9.4 yesterday. To be determined if patient will get blood during dialysis. Objective - Vital Signs Vital signs: Vital Signs Temp 97.7 F 05/17/23 08:00 Pulse 81 05/17/23 08:57 Resp 18 05/17/23 08:57 BP 113/65 05/17/23 08:00 Pulse Ox 95 05/17/23 08:57 FiO2 50 05/13/23 15:13 Intake & Output 05/16/23 05/17/23 05/17/23 18:59 06:59 18:59 Intake Total 1681 1513.333 482 Output Total 124 92 17 Balance 1557 1421.333 465 Weight 113.7 kg Intake: IV 1087 1437 242 Calcium Gluconate in NaCl 100 2 gm In Saline 1 100ml. bag @ 100 mls/hr IVPB ONCE ONE Rx#:[id number] Dextrose 5% in Water 1, 600 900 150 000 ml @ 75 mls/hr IV . [id number] JESSICA with Sodium Bicarb (1 Meq/ml) 150 ml Rx#:[id number] Furosemide 100 mg In 75 225 40 Sodium Chloride 0.9% 90 ml @ 20 MG/HR 20 mls/hr IV .Q5H JESSICA Rx#:[id number] Lactated Ringers 1,000 ml 40 @ 20 mls/hr IV .Q24H JESSICA Rx#:[id number] Sodium Chloride 0.9% 500 200 240 40 ml 500 ml @ 20 mls/hr IV .Q24H [facility] Rx#:[id number] pressure bags 72 72 12 Intake, IV Titration 76.333 Amount Furosemide 100 mg In 76.333 Sodium Chloride 0.9% 90 ml @ 20 MG/HR 20 mls/hr IV .Q5H JESSICA Rx#:[id number] Oral 594 240 Output: Chest Tube Drainage 70 20 10 Pleural Catheter Left 70 20 10 Pleural Catheter Right 0 Urine 54 72 7 Other: Voiding Method Indwelling Catheter Indwelling Catheter # Bowel Movements 1 ABP, PAP, CO, CI - Last Documented Arterial Blood Pressure 109/38 Pulmonary Artery Pressure 29/9 Cardiac Output 4.5 Cardiac Index 2.2 - Exam CONSTITUTIONAL: Appears comfortable, cooperative, no acute distress RESPIRATORY: Lungs sounds diminished bilaterally. Respirations even, nonlabored. Currently on 4 L nasal cannula with oxygen saturation 98%. Able to achieve 1000 mL on incentive spirometry. Strong productive cough. CARDIOVASCULAR: S1, S2 present. Regular rate and rhythm, sinus rhythm with occasional PACs on telemetry. Sternum stable. Palpable peripheral pulses bilaterally. Generalized edema present. No calf pain or tenderness noted. Heart hugger in place with patient demonstrating appropriate use. Antiembolism stockings, SCDs present. GASTROINTESTINAL: Abdomen soft, nontender, nondistended, obese. Active bowel sounds present 4 quadrants. Tolerating diet. Positive bowel movement 05/16 GENITOURINARY: Nelson present draining clear, yellow urine. Output overnight 0- 10 mL per hour, 126 mL in the last 24 hours INTEGUMENTARY: Skin is warm and dry. Anterior chest incision well approximated and covered with dry intact dressing. Right lower extremity EVH site well approximated without redness or drainage. NEUROLOGIC: Cranial nerves II through XII intact MUSKULOSKELETAL: Able to move all extremities, strength equal bilaterally PSYCHIATRIC: Alert and oriented to person place and time, appropriate affect, intact judgment and insight INVASIVE LINES AND TUBES: Left pleural chest tube present and connected to wall suction, no air leaks present, 10 mL serosanguineous drainage overnight, 120 mL in the last 24 hours. Right internal jugular cordis, right radial arterial line present - Allied health notes Allied health notes reviewed: nursing - Labs CBC & Chem 7: 05/17/23 04:55 05/17/23 04:55 Labs: Abnormal Lab Results - Last 24 Hours (Table) 05/16/23 05/16/23 05/16/23 Range/Units 04:01 11:37 13:55 WBC (3.8-10.6) k/uL RBC (4.30-5.90) m/uL Hgb (13.0-17.5) gm/dL Hct (39.0-53.0) % Plt Count (150-450) k/uL Neutrophils # (1.3-7.7) k/uL Lymphocytes # (1.0-4.8) k/uL APTT (22.0-30.0) sec ABG pCO2 32 L (35-45) mmHg ABG pO2 78 L (83-108) mmHg ABG HCO3 20 L (21-25) mmol/L ABG O2 Saturation (94-97) % Sodium (137-145) mmol/L Chloride (98-107) mmol/L Carbon Dioxide (22-30) mmol/L BUN (9-20) mg/dL Creatinine (0.66-1.25) mg/dL Glucose (74-99) mg/dL POC Glucose (mg/dL) 309 H (70-110) mg/dL Calcium (8.4-10.2) mg/dL AST (17-59) U/L Total Protein (6.3-8.2) g/dL Albumin (3.5-5.0) g/dL Procalcitonin 5.61 H (0.02-0.09) ng/mL 05/16/23 05/16/23 05/17/23 Range/Units 16:26 20:31 01:50 WBC 14.0 H (3.8-10.6) k/uL RBC 2.35 L (4.30-5.90) m/uL Hgb 7.9 L D (13.0-17.5) gm/dL Hct 22.1 L (39.0-53.0) % Plt Count 136 L (150-450) k/uL Neutrophils # (1.3-7.7) k/uL Lymphocytes # (1.0-4.8) k/uL APTT (22.0-30.0) sec ABG pCO2 (35-45) mmHg ABG pO2 (83-108) mmHg ABG HCO3 (21-25) mmol/L ABG O2 Saturation (94-97) % Sodium (137-145) mmol/L Chloride (98-107) mmol/L Carbon Dioxide (22-30) mmol/L BUN (9-20) mg/dL Creatinine (0.66-1.25) mg/dL Glucose (74-99) mg/dL POC Glucose (mg/dL) 307 H 306 H (70-110) mg/dL Calcium (8.4-10.2) mg/dL AST (17-59) U/L Total Protein (6.3-8.2) g/dL Albumin (3.5-5.0) g/dL Procalcitonin (0.02-0.09) ng/mL 05/17/23 05/17/23 05/17/23 Range/Units 04:55 04:55 04:55 WBC 13.0 H (3.8-10.6) k/uL RBC 2.32 L (4.30-5.90) m/uL Hgb 7.7 L (13.0-17.5) gm/dL Hct 22.1 L (39.0-53.0) % Plt Count 140 L (150-450) k/uL Neutrophils # 11.3 H (1.3-7.7) k/uL Lymphocytes # 0.8 L (1.0-4.8) k/uL APTT 43.5 H (22.0-30.0) sec ABG pCO2 (35-45) mmHg ABG pO2 (83-108) mmHg ABG HCO3 (21-25) mmol/L ABG O2 Saturation (94-97) % Sodium 132 L (137-145) mmol/L Chloride 97 L (98-107) mmol/L Carbon Dioxide 21 L (22-30) mmol/L BUN 67 H (9-20) mg/dL Creatinine 7.33 H* (0.66-1.25) mg/dL Glucose 226 H (74-99) mg/dL POC Glucose (mg/dL) (70-110) mg/dL Calcium 7.2 L (8.4-10.2) mg/dL AST 103 H (17-59) U/L Total Protein 4.6 L (6.3-8.2) g/dL Albumin 2.5 L (3.5-5.0) g/dL Procalcitonin (0.02-0.09) ng/mL 05/17/23 05/17/23 Range/Units 05:05 05:58 WBC (3.8-10.6) k/uL RBC (4.30-5.90) m/uL Hgb (13.0-17.5) gm/dL Hct (39.0-53.0) % Plt Count (150-450) k/uL Neutrophils # (1.3-7.7) k/uL Lymphocytes # (1.0-4.8) k/uL APTT (22.0-30.0) sec ABG pCO2 (35-45) mmHg ABG pO2 (83-108) mmHg ABG HCO3 (21-25) mmol/L ABG O2 Saturation 97.4 H (94-97) % Sodium (137-145) mmol/L Chloride (98-107) mmol/L Carbon Dioxide (22-30) mmol/L BUN (9-20) mg/dL Creatinine (0.66-1.25) mg/dL Glucose (74-99) mg/dL POC Glucose (mg/dL) 264 H (70-110) mg/dL Calcium (8.4-10.2) mg/dL AST (17-59) U/L Total Protein (6.3-8.2) g/dL Albumin (3.5-5.0) g/dL Procalcitonin (0.02-0.09) ng/mL - Imaging and Cardiology Chest x-ray: report reviewed, image reviewed Assessment and Plan Assessment: Two-vessel coronary artery disease, status post off-pump 2 vessel CABG History of nonischemic cardiomyopathy with EF 25-30% with improvement EF of 45- 50% with intense medical therapy, on Entresto outpatient Chronic LV thrombus Pulmonary embolus on eliquis outpatient History of hypertension, currently hypotensive Hyperlipidemia, treated, cholesterol 108, LDL 44 Diabetes mellitus, hemoglobin A1c 7.4% CVA with residual right-sided weakness COVID-19 infection in early 2021 Chronic kidney disease stage IV with baseline creatinine of 2.0 BPH status post TURP Postoperative acute blood loss anemia and thrombocytopenia, expected Intra and postoperative hypotension, unexpected Acute kidney injury, likely secondary to hypoperfusion, status post temporary hemodialysis catheter Plan: Continue to maximize medical therapy with aspirin, statin, Plavix. Will hold beta keara today Continue dopamine drip at 3 mcg/kg/m. Wean O2 as tolerated. Encourage incentive spirometry use 10 times every hour while awake. Bronchodilators per pulmonology. Continue Midodrine 10 mg by mouth 3 times a day to help with blood pressure support. Hold for systolic blood pressure greater than 120 mmHg. Will monitor daily labs and chest x-rays. Electrolyte replacement per protocol. Continuous Lasix drip, bicarb drip per nephrology GI/DVT prophylaxis. Increase activity as tolerated. PT/OT/cardiac rehab following Pain control with current medication regimen. No Toradol due to kidney disease. Insulin management per internal medicine service, patient's preoperative hemoglobin A1c was 7.4%. Blood sugars have been running 200s-300s, we will reinitiate insulin drip for better blood sugar management, discussed with internal medicine Keep left pleural chest tube in place. Continue Nelson catheter for another 24 hours for strict accurate intake and output. Avoid nephrotoxic agents Daily weights Dialysis per nephrology Keep right IJ Cordis in place with continuous CVP monitoring. More recommendations to follow
[2023-05-17 09:47] LABS: Glucose,Whole Blood 338 mg/dL (70-110)
[2023-05-17] MEDS: INSULIN REGULAR 100 UNIT in SODIUM CHLORIDE 0.9% 100 ML IV SCH ×2 (09:59→19:31)
[2023-05-17] MEDS: SODIUM CHLORIDE 0.9% 500 ML 500 ML IV SCH (10:20)
--- NOTE | 2023-05-17 10:41 | P.PN ---
Subjective Progress Note Date: 05/17/23 This is a 68-year-old male patient with a known history of coronary artery disease, hypertension, hyperlipidemia, diabetes mellitus, benign prostatic hyperplasia, pulmonary embolism anticoagulated with Eliquis. He also has a history of COVID-19 infection and subsequent CVA felt to be secondary to hyperco agulability. In March 2023 at undergone cardiac catheterization that revealed a chronic total occlusion of the right coronary artery which fills by collaterals circulation, chronic total occlusion of the mid LAD by the bifurcation of the large diagonal branch with flush occlusion. The LAD fills by ipsilateral collaterals. He was recommended coronary artery bypass grafting. Echocardiogram revealed moderate LV dysfunction with ejection fraction of 40- 45%. He was brought in today for an elective surgery. He had undergone an off- pump coronary artery bypass grafting 2 with the left internal thoracic artery to the left anterior descending artery, saphenous vein graft from the aorta to the posterior descending artery. Left atrial appendage ligation with a 35mm Atriclip. He is seen postoperatively in the intensive care unit. He is intubated on the mechanical ventilator and assist control mode with a rate of 14, tidal volume 500, FiO2 50% and a PEEP of 10. Initial arterial blood gases revealed a PaO2 of 387, P CO2 of 41 and a pH of 7.31 on 100% FiO2. Sodium 137. Potassium 4.3. Bicarb 20. BUN 39. Creatinine 2.33. Glucose 154. Calcium 7.9. Magnesium 2.4. AST 21. ALT 16. Albumin 3.0. He is currently on dopamine at 2 mcg/kg/m. Milrinone at 0.3 mcg/kg/m. Norepinephrine at 0.06 mcg/kg/m propofol currently on hold. Insulin drip at 6 units per hour. Lactated Ringer's at 50 MLS per hour. PA pressure 43/19. Cardiac output 5.9. Cardiac index 2.8. Backup pacing at a rate of 50 bpm. Right and left pleural chest tubes in place with a small leak. Mediastinal chest tubes 2. Just x-ray reveals postsurgical changes. Bilateral chest tubes without evidence of sizable pneumothorax. Rye-Misha catheter, mediastinal drain, endotracheal and gastric tube secured in place. Patient was reevaluated today on 05/14/2023, patient is doing well, he is postoperative day #1, patient is requiring multiple drips including dopamine at 3 mcg/kg/m, norepinephrine at 0.02 mcg/kg/m, he is on insulin at 4 units per hour, and lactated Ringer's at 40 mL per hour. Cardiac index is 2.2. Cardiac output is 4.5. Urine output is marginal between 15-20 mL per hour. Patient is on 1 L nasal cannula, does not seem to be in distress, sitting at a bedside chair. Chest x-ray showed minimal basilar atelectasis and small pleural effusions with cardiomegaly and postoperative changes. WBC count is 12.9 hemoglobin is 10.7. Basic metabolic profile is normal however his BUN is 43 creatinine is rising up to 2.83, baseline yesterday was 2.33. Patient is achieving about 1000 mL via incentive spirometry Reevaluated today on 05/15/2023, patient is sitting up at the bedside chair, awake, oriented 3, does not seem to be in any distress. Patient is on 2 L nasal cannula, O2 sats is 94%, remains on dopamine drip at 3 mcg/kg/m, his urine output remains marginal and poor, however the patient's creatinine jumped up significantly over the last 24 hours, I believe the patient may have developed acute tubular necrosis from hypotension, nonetheless clinically the patient is doing better than expected. He was seen by nephrology for his renal failure.pleural and mediastinal chest tubes noted, remain in place, Nelson catheter remains in place. Labs were reviewed today, creatinine is up to 4.03 BUN is 48. Hemoglobin is 9.9. WBC count is 15.3.chest x-ray showed mostly postsurgical changes and bilateral chest tubes without evidence of any pneumothorax. Small right-sided pleural effusion is noted. Patient was reevaluated today on 05/16/2023, doing well from the pulmonary perspective, but doing poorly from the renal perspective. Patient continues to develop worsening renal failure, being followed by nephrology, and I believe the patient may be heading towards hemodialysis. Creatinine is up to 5.9 this morning. Bicarb is low. Patient remains on dopamine at 3 mcg/kg/m with very poor urine output. Chest x-ray is showing postsurgical changes and small right- sided pleural effusion no pneumothorax, no evidence of pneumonia . Bicarb is low, creatinine is high, but sugar is 200, his ventricular epicardial pacemaker wires were removed yesterday. Mediastinal chest tube was removed yesterday, continues to have right IJ Cordis in place, and continues to have CVP monitoring. CVP today is 6. Right-sided and left-sided pleural chest tubes remain in place. Nelson catheter remains in place. Patient had only 120 mL of urine output in the last 8 hours. And about 400 in the last 24 hours. The patient is seen today 05/17/2023 in follow-up in the intensive care unit. He is currently sitting up in bed. Awake and alert in no acute distress. Postoperative day #4. He is maintaining O2 saturations in the 90s on 4 L/m per nasal cannula. He has normal saline at KVO. Dopamine drip at 3 mcg/kg/min. Insulin drip at 11 units per hour. D5W with 3 A of sodium bicarb at 75 ML's per hour. Lasix drip at 20 mg per hour. He is oliguric. He did receive a right femoral temporary hemodialysis catheter placed last evening. Plan is for hemodialysis today. White count 13.0. Hemoglobin 7.7. Platelets 140. Sodium 132. Potassium 4.1. Bicarb 21. BUN 67. Creatinine 7.33. Glucose 226. Arterial blood gases revealed a pO2 of 87, pCO2 35. PH 7.42. Left pleural chest tube remains in place to wall suction. No significant leak noted. Right internal Cordis in place. Right radial art line in place. As x-ray reveals no evidence of pneumothorax. Mild cardiomegaly and a right pleural effusion. Continues to work with the incentive spirometer. Continued on bronchodilators. Objective - Vital Signs Vital signs: Vital Signs Temp 97.7 F 05/17/23 08:00 Pulse 81 05/17/23 10:00 Resp 22 05/17/23 10:00 BP 117/56 05/17/23 10:00 Pulse Ox 97 05/17/23 10:00 FiO2 50 05/13/23 15:13 Intake & Output 05/16/23 05/17/23 05/17/23 18:59 06:59 18:59 Intake Total 1681 1513.333 821 Output Total 124 92 24 Balance 1557 1421.333 797 Weight 113.7 kg Intake: IV 1087 1437 389 Calcium Gluconate in NaCl 100 2 gm In Saline 1 100ml. bag @ 100 mls/hr IVPB ONCE ONE Rx#:[id number] Dextrose 5% in Water 1, 600 900 225 000 ml @ 75 mls/hr IV . [id number] JESSICA with Sodium Bicarb (1 Meq/ml) 150 ml Rx#:[id number] Furosemide 100 mg In 75 225 60 Sodium Chloride 0.9% 90 ml @ 20 MG/HR 20 mls/hr IV .Q5H JESSICA Rx#:[id number] Lactated Ringers 1,000 ml 40 @ 20 mls/hr IV .Q24H JESSICA Rx#:[id number] Sodium Chloride 0.9% 500 200 240 80 ml 500 ml @ 20 mls/hr IV .Q24H JESSICA Rx#:[id number] pressure bags 72 72 24 Intake, IV Titration 76.333 192 Amount Furosemide 100 mg In 76.333 Sodium Chloride 0.9% 90 ml @ 20 MG/HR 20 mls/hr IV .Q5H JESSICA Rx#:[id number] Furosemide 200 mg In 192 Sodium Chloride 0.9% 180 ml @ 20 MG/HR 20 mls/hr IV .Q10H JESSICA Rx#: [id number] Oral 594 240 Output: Chest Tube Drainage 70 20 10 Pleural Catheter Left 70 20 10 Pleural Catheter Right 0 Urine 54 72 14 Other: Voiding Method Indwelling Catheter Indwelling Catheter # Bowel Movements 1 ABP, PAP, CO, CI - Last Documented Arterial Blood Pressure 103/46 Pulmonary Artery Pressure 29/9 Cardiac Output 4.5 Cardiac Index 2.2 - Exam GENERAL EXAM: Alert, pleasant 68-year-old male patient, on 4 L nasal cannula, fairly comfortable in no apparent distress. HEAD: Normocephalic. EYES: Normal reaction of pupils, equal size. NOSE: Clear with pink turbinates. THROAT: No erythema or exudates. NECK: Right IJ Cordis in place. No masses, no JVD. CHEST: Sternal dressing dry and intact. Heart hugger in place. Left pleural chest tube in place to wall suction. No leak.. LUNGS: Equal air entry with crackles in the right lung base. CVS: S1 and S2 normal with no audible murmur, regular rhythm. ABDOMEN: No hepatosplenomegaly, normal bowel sounds, no guarding or rigidity. SPINE: No scoliosis or deformity SKIN: No rashes CENTRAL NERVOUS SYSTEM: No focal deficits, tone is normal in all 4 extremities. EXTREMITIES: Right femoral hemodialysis catheter in place. SCDs in place. Right radial arterial line in place. Peripheral pulses are intact. - Labs CBC & Chem 7: 05/17/23 04:55 05/17/23 04:55 Labs: Abnormal Lab Results - Last 24 Hours (Table) 05/16/23 05/16/23 05/16/23 Range/Units 04:01 11:37 13:55 WBC (3.8-10.6) k/uL RBC (4.30-5.90) m/uL Hgb (13.0-17.5) gm/dL Hct (39.0-53.0) % Plt Count (150-450) k/uL Neutrophils # (1.3-7.7) k/uL Lymphocytes # (1.0-4.8) k/uL APTT (22.0-30.0) sec ABG pCO2 32 L (35-45) mmHg ABG pO2 78 L (83-108) mmHg ABG HCO3 20 L (21-25) mmol/L ABG O2 Saturation (94-97) % Sodium (137-145) mmol/L Chloride (98-107) mmol/L Carbon Dioxide (22-30) mmol/L BUN (9-20) mg/dL Creatinine (0.66-1.25) mg/dL Glucose (74-99) mg/dL POC Glucose (mg/dL) 309 H (70-110) mg/dL Calcium (8.4-10.2) mg/dL AST (17-59) U/L Total Protein (6.3-8.2) g/dL Albumin (3.5-5.0) g/dL Procalcitonin 5.61 H (0.02-0.09) ng/mL 05/16/23 05/16/23 05/17/23 Range/Units 16:26 20:31 01:50 WBC 14.0 H (3.8-10.6) k/uL RBC 2.35 L (4.30-5.90) m/uL Hgb 7.9 L D (13.0-17.5) gm/dL Hct 22.1 L (39.0-53.0) % Plt Count 136 L (150-450) k/uL Neutrophils # (1.3-7.7) k/uL Lymphocytes # (1.0-4.8) k/uL APTT (22.0-30.0) sec ABG pCO2 (35-45) mmHg ABG pO2 (83-108) mmHg ABG HCO3 (21-25) mmol/L ABG O2 Saturation (94-97) % Sodium (137-145) mmol/L Chloride (98-107) mmol/L Carbon Dioxide (22-30) mmol/L BUN (9-20) mg/dL Creatinine (0.66-1.25) mg/dL Glucose (74-99) mg/dL POC Glucose (mg/dL) 307 H 306 H (70-110) mg/dL Calcium (8.4-10.2) mg/dL AST (17-59) U/L Total Protein (6.3-8.2) g/dL Albumin (3.5-5.0) g/dL Procalcitonin (0.02-0.09) ng/mL 05/17/23 05/17/23 05/17/23 Range/Units 04:55 04:55 04:55 WBC 13.0 H (3.8-10.6) k/uL RBC 2.32 L (4.30-5.90) m/uL Hgb 7.7 L (13.0-17.5) gm/dL Hct 22.1 L (39.0-53.0) % Plt Count 140 L (150-450) k/uL Neutrophils # 11.3 H (1.3-7.7) k/uL Lymphocytes # 0.8 L (1.0-4.8) k/uL APTT 43.5 H (22.0-30.0) sec ABG pCO2 (35-45) mmHg ABG pO2 (83-108) mmHg ABG HCO3 (21-25) mmol/L ABG O2 Saturation (94-97) % Sodium 132 L (137-145) mmol/L Chloride 97 L (98-107) mmol/L Carbon Dioxide 21 L (22-30) mmol/L BUN 67 H (9-20) mg/dL Creatinine 7.33 H* (0.66-1.25) mg/dL Glucose 226 H (74-99) mg/dL POC Glucose (mg/dL) (70-110) mg/dL Calcium 7.2 L (8.4-10.2) mg/dL AST 103 H (17-59) U/L Total Protein 4.6 L (6.3-8.2) g/dL Albumin 2.5 L (3.5-5.0) g/dL Procalcitonin (0.02-0.09) ng/mL 05/17/23 05/17/23 05/17/23 Range/Units 05:05 05:58 09:44 WBC (3.8-10.6) k/uL RBC (4.30-5.90) m/uL Hgb (13.0-17.5) gm/dL Hct (39.0-53.0) % Plt Count (150-450) k/uL Neutrophils # (1.3-7.7) k/uL Lymphocytes # (1.0-4.8) k/uL APTT (22.0-30.0) sec ABG pCO2 (35-45) mmHg ABG pO2 (83-108) mmHg ABG HCO3 (21-25) mmol/L ABG O2 Saturation 97.4 H (94-97) % Sodium (137-145) mmol/L Chloride (98-107) mmol/L Carbon Dioxide (22-30) mmol/L BUN (9-20) mg/dL Creatinine (0.66-1.25) mg/dL Glucose (74-99) mg/dL POC Glucose (mg/dL) 264 H 338 H (70-110) mg/dL Calcium (8.4-10.2) mg/dL AST (17-59) U/L Total Protein (6.3-8.2) g/dL Albumin (3.5-5.0) g/dL Procalcitonin (0.02-0.09) ng/mL Assessment and Plan Assessment: Coronary artery disease status post off-pump coronary artery bypass grafting 2 with a left internal thoracic artery to the left anterior descending artery, saphenous vein graft from the aorta to the posterior descending artery. Left atrial appendage ligation. Postoperative day #4. Acute kidney injury requiring hemodialysis History of chronic kidney disease, stage IV Ischemic cardiomyopathy with ejection fraction 40-45% History of pulmonary embolism previously on Eliquis Diabetes mellitus Hypertension CVA BPH Hyperlipidemia Previous COVID-19 infection Plan: The patient was seen and evaluated Chest x-ray, ABGs, labs and medications reviewed Will be starting hemodialysis today Currently on a dopamine drip Currently on a Lasix drip Currently on a bicarb drip Currently on an insulin drip Continue bronchodilators Educated regarding the increased use of incentive spirometer Titrate the FiO2 as tolerated We will continue to follow I have personally seen and examined the patient, performed the documentation and the assessment and plan as written. Number of minutes spent on the visit: 10.
[2023-05-17 11:06] LABS: Glucose,Whole Blood 241 mg/dL (70-110)
[2023-05-17] MEDS ORDERED: DEXTROSE 5% IN WATER 100 ML with AMIODARONE 150 MG IV ONE (11:15)
[2023-05-17 11:59] LABS: Glucose,Whole Blood 191 mg/dL (70-110)
[2023-05-17 12:12] LABS: ABG HCO3 25 mmol/L (21-25); ABG Oxygen Saturation 92.6 % (94-97); ABG PCO2 34 mmHg (35-45); ABG PH 7.47 (7.35-7.45); ABG PO2 60 mmHg (83-108); ABG TCO2 26 mmol/L (19-24)
--- NOTE | 2023-05-17 12:16 | P.PN ---
Subjective Patient is seen in follow-up for acute kidney injury on chronic kidney disease. Currently undergoing first semen of hemodialysis. On bicarb drip as well as Lasix drip. Acidosis improved. Remains oliguric. He is on dopamine. Received amiodarone bolus for A. fib. Lethargic. Family present at bedside. Vital signs are stable. In A. fib. General: Resting in bed. Lethargic. HEENT: On nasal cannula. LUNGS: No audible rhonchi or wheezes. HEART: Irregular rate and rhythm. ABDOMEN: No distention. Obese. EXTREMITITES: 1+ edema. Objective - Vital Signs Vital signs: Vital Signs Temp 97.7 F 05/17/23 08:00 Pulse 81 05/17/23 10:00 Resp 22 05/17/23 10:00 BP 117/56 05/17/23 10:00 Pulse Ox 97 05/17/23 10:00 FiO2 50 05/13/23 15:13 Intake & Output 05/16/23 05/17/23 05/17/23 18:59 06:59 18:59 Intake Total 1681 1513.333 821 Output Total 124 92 24 Balance 1557 1421.333 797 Weight 113.7 kg Intake: IV 1087 1437 389 Calcium Gluconate in NaCl 100 2 gm In Saline 1 100ml. bag @ 100 mls/hr IVPB ONCE ONE Rx#:[id number] Dextrose 5% in Water 1, 600 900 225 000 ml @ 75 mls/hr IV . [id number] JESSICA with Sodium Bicarb (1 Meq/ml) 150 ml Rx#:[id number] Furosemide 100 mg In 75 225 60 Sodium Chloride 0.9% 90 ml @ 20 MG/HR 20 mls/hr IV .Q5H JESSICA Rx#:[id number] Lactated Ringers 1,000 ml 40 @ 20 mls/hr IV .Q24H JESSICA Rx#:[id number] Sodium Chloride 0.9% 500 200 240 80 ml 500 ml @ 20 mls/hr IV .Q24H JESSICA Rx#:[id number] pressure bags 72 72 24 Intake, IV Titration 76.333 192 Amount Furosemide 100 mg In 76.333 Sodium Chloride 0.9% 90 ml @ 20 MG/HR 20 mls/hr IV .Q5H JESSICA Rx#:[id number] Furosemide 200 mg In 192 Sodium Chloride 0.9% 180 ml @ 20 MG/HR 20 mls/hr IV .Q10H [facility] Rx#: [id number] Oral 594 240 Output: Chest Tube Drainage 70 20 10 Pleural Catheter Left 70 20 10 Pleural Catheter Right 0 Urine 54 72 14 Other: Voiding Method Indwelling Catheter Indwelling Catheter # Bowel Movements 1 ABP, PAP, CO, CI - Last Documented Arterial Blood Pressure 103/46 Pulmonary Artery Pressure 29/9 Cardiac Output 4.5 Cardiac Index 2.2 - Labs CBC & Chem 7: 05/17/23 04:55 05/17/23 04:55 Labs: Abnormal Lab Results - Last 24 Hours (Table) 05/16/23 05/16/23 05/16/23 Range/Units 04:01 13:55 16:26 WBC (3.8-10.6) k/uL RBC (4.30-5.90) m/uL Hgb (13.0-17.5) gm/dL Hct (39.0-53.0) % Plt Count (150-450) k/uL Neutrophils # (1.3-7.7) k/uL Lymphocytes # (1.0-4.8) k/uL APTT (22.0-30.0) sec ABG pCO2 32 L (35-45) mmHg ABG pO2 78 L (83-108) mmHg ABG HCO3 20 L (21-25) mmol/L ABG O2 Saturation (94-97) % Sodium (137-145) mmol/L Chloride (98-107) mmol/L Carbon Dioxide (22-30) mmol/L BUN (9-20) mg/dL Creatinine (0.66-1.25) mg/dL Glucose (74-99) mg/dL POC Glucose (mg/dL) 307 H (70-110) mg/dL Calcium (8.4-10.2) mg/dL AST (17-59) U/L Total Protein (6.3-8.2) g/dL Albumin (3.5-5.0) g/dL Procalcitonin 5.61 H (0.02-0.09) ng/mL 05/16/23 05/17/23 05/17/23 Range/Units 20:31 01:50 04:55 WBC 14.0 H 13.0 H (3.8-10.6) k/uL RBC 2.35 L 2.32 L (4.30-5.90) m/uL Hgb 7.9 L D 7.7 L (13.0-17.5) gm/dL Hct 22.1 L 22.1 L (39.0-53.0) % Plt Count 136 L 140 L (150-450) k/uL Neutrophils # 11.3 H (1.3-7.7) k/uL Lymphocytes # 0.8 L (1.0-4.8) k/uL APTT (22.0-30.0) sec ABG pCO2 (35-45) mmHg ABG pO2 (83-108) mmHg ABG HCO3 (21-25) mmol/L ABG O2 Saturation (94-97) % Sodium (137-145) mmol/L Chloride (98-107) mmol/L Carbon Dioxide (22-30) mmol/L BUN (9-20) mg/dL Creatinine (0.66-1.25) mg/dL Glucose (74-99) mg/dL POC Glucose (mg/dL) 306 H (70-110) mg/dL Calcium (8.4-10.2) mg/dL AST (17-59) U/L Total Protein (6.3-8.2) g/dL Albumin (3.5-5.0) g/dL Procalcitonin (0.02-0.09) ng/mL 05/17/23 05/17/23 05/17/23 Range/Units 04:55 04:55 05:05 WBC (3.8-10.6) k/uL RBC (4.30-5.90) m/uL Hgb (13.0-17.5) gm/dL Hct (39.0-53.0) % Plt Count (150-450) k/uL Neutrophils # (1.3-7.7) k/uL Lymphocytes # (1.0-4.8) k/uL APTT 43.5 H (22.0-30.0) sec ABG pCO2 (35-45) mmHg ABG pO2 (83-108) mmHg ABG HCO3 (21-25) mmol/L ABG O2 Saturation 97.4 H (94-97) % Sodium 132 L (137-145) mmol/L Chloride 97 L (98-107) mmol/L Carbon Dioxide 21 L (22-30) mmol/L BUN 67 H (9-20) mg/dL Creatinine 7.33 H* (0.66-1.25) mg/dL Glucose 226 H (74-99) mg/dL POC Glucose (mg/dL) (70-110) mg/dL Calcium 7.2 L (8.4-10.2) mg/dL AST 103 H (17-59) U/L Total Protein 4.6 L (6.3-8.2) g/dL Albumin 2.5 L (3.5-5.0) g/dL Procalcitonin (0.02-0.09) ng/mL 05/17/23 05/17/23 05/17/23 Range/Units 05:58 09:44 11:04 WBC (3.8-10.6) k/uL RBC (4.30-5.90) m/uL Hgb (13.0-17.5) gm/dL Hct (39.0-53.0) % Plt Count (150-450) k/uL Neutrophils # (1.3-7.7) k/uL Lymphocytes # (1.0-4.8) k/uL APTT (22.0-30.0) sec ABG pCO2 (35-45) mmHg ABG pO2 (83-108) mmHg ABG HCO3 (21-25) mmol/L ABG O2 Saturation (94-97) % Sodium (137-145) mmol/L Chloride (98-107) mmol/L Carbon Dioxide (22-30) mmol/L BUN (9-20) mg/dL Creatinine (0.66-1.25) mg/dL Glucose (74-99) mg/dL POC Glucose (mg/dL) 264 H 338 H 241 H (70-110) mg/dL Calcium (8.4-10.2) mg/dL AST (17-59) U/L Total Protein (6.3-8.2) g/dL Albumin (3.5-5.0) g/dL Procalcitonin (0.02-0.09) ng/mL 05/17/23 Range/Units 11:57 WBC (3.8-10.6) k/uL RBC (4.30-5.90) m/uL Hgb (13.0-17.5) gm/dL Hct (39.0-53.0) % Plt Count (150-450) k/uL Neutrophils # (1.3-7.7) k/uL Lymphocytes # (1.0-4.8) k/uL APTT (22.0-30.0) sec ABG pCO2 (35-45) mmHg ABG pO2 (83-108) mmHg ABG HCO3 (21-25) mmol/L ABG O2 Saturation (94-97) % Sodium (137-145) mmol/L Chloride (98-107) mmol/L Carbon Dioxide (22-30) mmol/L BUN (9-20) mg/dL Creatinine (0.66-1.25) mg/dL Glucose (74-99) mg/dL POC Glucose (mg/dL) 191 H (70-110) mg/dL Calcium (8.4-10.2) mg/dL AST (17-59) U/L Total Protein (6.3-8.2) g/dL Albumin (3.5-5.0) g/dL Procalcitonin (0.02-0.09) ng/mL Assessment and Plan Plan: Assessment: 1. Acute kidney injury secondary to hemodynamic ATN. Creatinine 7.3 today. Oliguric. Started on hemodialysis today. 2. A. fib with RVR maintained on amiodarone and Lopressor. 3. 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 4. Metabolic acidosis secondary to acute kidney injury improved with bicarbonate drip. 5. Cardiomyopathy. Ejection fraction of 40-45%. 6. Chronic kidney disease stage IV with baseline creatinine near 2. Suspect underlying diabetic kidney disease. 7. Diabetes mellitus. Plan: Currently seen while undergoing hemodialysis. Another treatment tomorrow. Stop bicarb drip. Stop Lasix drip. Check phosphorus level. Check renal ultrasound. Continue to monitor renal function and urine output.
[2023-05-17] MEDS ORDERED: NALOXONE 0.4 MG/ML 1 ML VIAL ONE (12:23)
[2023-05-17] MEDS ORDERED: ALBUMIN HUMAN 5% 250 ML in EMPTY BAG 1 BAG IVPB STA (12:25)
[2023-05-17 12:30] LABS: Partial Thromboplastin Time 44.5 sec (22.0-30.0); Prothrombin Time 10.8 sec (9.0-12.0)
[2023-05-17 12:39] LABS: ALT 46 U/L (4-49); AST 420 U/L (17-59); African American GFR (CKD) 16 (>60 ml/min/1.73 sqM); Albumin 2.9 g/dL (3.5-5.0); Alkaline Phosphatase 117 U/L (38-126); Anion Gap 9 mmol/L; Blood Urea Nitrogen 38 mg/dL (9-20); Calcium 7.8 mg/dL (8.4-10.2); Carbon Dioxide 26 mmol/L (22-30); Chloride 98 mmol/L (98-107); Glucose 166 mg/dL (74-99); Non-African American GFR(CKD) 14 (>60 ml/min/1.73 sqM); Potassium 3.5 mmol/L (3.5-5.1); Sodium 133 mmol/L (137-145); Total Bilirubin 0.9 mg/dL (0.2-1.3); Total Protein 5.9 g/dL (6.3-8.2)
[2023-05-17 12:52] LABS: Basophils % (A) 0 %; Eosinophils # (A) 0.3 k/uL (0-0.7); Eosinophils % (A) 2 %; HCT 22.9 % (39.0-53.0); HGB 8.1 gm/dL (13.0-17.5); Lymphocytes # (A) 0.6 k/uL (1.0-4.8); Lymphocytes % (A) 4 %; MCHC 35.4 g/dL (31.0-37.0); MCV 93.2 fL (80.0-100.0); Mean Platelet Volume 8.1; Monocytes # (A) 0.5 k/uL (0-1.0); Monocytes % (A) 4 %; Neutrophils # (A) 12.7 k/uL (1.3-7.7); Neutrophils % (A) 89 %; Platelet Count 181 k/uL (150-450); RBC 2.46 m/uL (4.30-5.90); WBC 14.4 k/uL (3.8-10.6)
[2023-05-17 13:10] LABS: Glucose,Whole Blood 174 mg/dL (70-110)
--- NOTE | 2023-05-17 13:12 | CT ---
EXAMINATION TYPE: CT brain wo con CT DLP: 1231.8 mGycm, Automated exposure control for dose reduction was used. DATE OF EXAM: 05/17/2023 12:53 PM COMPARISON: Prior CT Brain from 05/20/2022. CLINICAL INDICATION:Male, 68 years old with history of change in mental status, Change in Mentation TECHNIQUE: Brain: Multiple axial CT images of the brain were obtained without IV contrast. Coronal and sagittal reformats reviewed. FINDINGS: Brain: Motion degraded examination. Extra-axial spaces: No abnormal extra-axial fluid collections. Ventricular system: Dilatation in proportion to cerebral atrophy. Cerebral parenchyma: Cerebral atrophy. No acute intraparenchymal hemorrhage or mass effect. The ramirez -white junction is well differentiated. Scattered hypoattenuating areas are seen within the white mat ter. Cerebellum: Unremarkable. Mass effect: No evidence of midline shift. Intracranial vasculature: Atherosclerotic calcifications of the intracranial vessels. Soft tissues: Normal. Calvarium/osseous structures: No depressed skull fracture. Paranasal sinuses and mastoid air cells: Clear Visualized orbits: Bilateral aphakia IMPRESSION: 1. No acute intracranial process. 2. Nonspecific white matter changes, likely secondary to chronic small vessel ischemic disease.
[2023-05-17] MEDS ORDERED: ALBUMIN HUMAN 5% 250 ML in EMPTY BAG 1 BAG IVPB ONE (13:30)
[2023-05-17 14:40] LABS: Glucose,Whole Blood 143 mg/dL (70-110)
[2023-05-17] MEDS ORDERED: POTASSIUM CHLORIDE 20 MEQ in WATER FOR INJECTION 1 100ML.BAG IVPB STA (15:34)
[2023-05-17 16:11] LABS: Glucose,Whole Blood 133 mg/dL (70-110)
[2023-05-17] MEDS: DEXTROSE/WATER 1 250ML.BAG with DOPamine DRIP 800 MG IV SCH (16:13)
[2023-05-17 17:09] LABS: Glucose,Whole Blood 122 mg/dL (70-110)
[2023-05-17 18:13] LABS: Glucose,Whole Blood 114 mg/dL (70-110)
[2023-05-17 19:29] LABS: Glucose,Whole Blood 132 mg/dL (70-110)
[2023-05-17 20:16] LABS: Glucose,Whole Blood 133 mg/dL (70-110)
[2023-05-17 21:20] LABS: Glucose,Whole Blood 135 mg/dL (70-110)
[2023-05-17 22:10] LABS: Glucose,Whole Blood 132 mg/dL (70-110)
[2023-05-17 23:11] LABS: Glucose,Whole Blood 120 mg/dL (70-110)
[2023-05-18] MEDS: HEPARIN SODIUM,PORCINE/PF 5,000 UNIT/0.5 ML SYRINGE SQ SCH ×2 (00:05→08:31)
[2023-05-18 00:15] LABS: Glucose,Whole Blood 113 mg/dL (70-110)
[2023-05-18 01:14] LABS: Glucose,Whole Blood 125 mg/dL (70-110)
[2023-05-18] MEDS: ACETAMINOPHEN TAB 500 MG TAB PO PRN (01:23)
[2023-05-18 01:49] LABS: Glucose,Whole Blood 128 mg/dL (70-110)
[2023-05-18 02:10] LABS: Glucose,Whole Blood 125 mg/dL (70-110)
--- NOTE | 2023-05-18 02:48 | PN ---
PROGRESS NOTE SUBJECTIVE: Mr. Birmingham is status post aortocoronary bypass surgery with acute renal injury. His creatinine is over 7. He now has catheter, is going for hemodialysis today. He is hemodynamically stable. OBJECTIVE: HEART: S1, S2 heard normally. Distant heart sounds. CHEST: Bilateral air entry is fair with scattered rhonchi. ABDOMEN: Unchanged. EXTREMITIES: Lower extremities exam unchanged. I agree with the dialysis. Hopefully, his kidney function will improve, dialysis will be a temporary feature. No new specific suggestions at this time. MMODL / IJN: [id number] /
[2023-05-18 03:00] LABS: Glucose,Whole Blood 118 mg/dL (70-110)
[2023-05-18] MEDS ORDERED: ALBUMIN HUMAN 5% 250 ML in EMPTY BAG 1 BAG IVPB ONE (03:56)
[2023-05-18 04:17] LABS: Glucose,Whole Blood 114 mg/dL (70-110)
[2023-05-18 04:32] LABS: HCT 22.2 % (39.0-53.0); HGB 7.7 gm/dL (13.0-17.5); MCH 32.5 pg (25.0-35.0); MCHC 34.4 g/dL (31.0-37.0); MCV 94.5 fL (80.0-100.0); Mean Platelet Volume 8.9; Platelet Count 130 k/uL (150-450); RBC 2.35 m/uL (4.30-5.90); RDW 13.4 % (11.5-15.5)
[2023-05-18 04:54] LABS: ALT 19 U/L (4-49); AST 255 U/L (17-59); African American GFR (CKD) 9 (>60 ml/min/1.73 sqM); Albumin 2.8 g/dL (3.5-5.0); Alkaline Phosphatase 95 U/L (38-126); Anion Gap 15 mmol/L; Blood Urea Nitrogen 50 mg/dL (9-20); Calcium 7.4 mg/dL (8.4-10.2); Carbon Dioxide 20 mmol/L (22-30); Chloride 100 mmol/L (98-107); Glucose 98 mg/dL (74-99); Non-African American GFR(CKD) 8 (>60 ml/min/1.73 sqM); Potassium 3.5 mmol/L (3.5-5.1); Sodium 135 mmol/L (137-145); Total Bilirubin 1.1 mg/dL (0.2-1.3); Total Protein 5.5 g/dL (6.3-8.2)
[2023-05-18] MEDS: NOREPINEPHRINE 4 MG in SODIUM CHLORIDE 0.9% 250 ML IV SCH (05:17)
[2023-05-18 05:31] LABS: Glucose,Whole Blood 139 mg/dL (70-110)
--- NOTE | 2023-05-18 05:48 | P.PN ---
Subjective Pleasant 68 years old male with past medical history of Diabetes Mellitus, Hypertension, hyperlipidemia, benign prostatic hypertrophy, pulmonary embolism on blood thinner He was admitted for coronary artery disease affecting mainly to vessels and underwent coronary artery bypass surgery yesterday and he was on mechanical ventilation for a short lived time, eventually he got extubated. Comfortable in bed with no chest pain or dyspnea. Hemodynamically stable. Patient has mild worsening of creatinine 2.8, 1.3 yesterday 05/15/2023 Fascia temo bed comfortably with no complaints. Blood pressure still borderline. We will see improvement on 15. Creatinine up to 4.0. Nephrology was consulted. Patient is status post bolus of 500 mL of normal saline. His urine analysis is abnormal. Urine culture is negative. Bladder scan is negative. We don't a repeat urine culture Patient remains on aspirin Plavix and midodrine by surgery team 05/16/23 pt is awake alert with no dyspnea, no chest pain ,he denies any specific complaints but his renal function keep worsening and today his creatinine went up to 5.4, he was lasix drip at 20 mg per hour, pt is mostly will need hemodialysis per nephrology team pt is on dobutamine with poor urine output. pt has mild leukocytosis sugar is more 300 so increased levemir to 5 u bid and novolog 5 u tid ac pt is on bicarb drip as well kept on asprin and plavix , and midodrine 05/17/2023 Patient remains in ICU closely monitored case/critical care team, the primary cardiothoracic surgery team and professor of social work as well as chief innovation officer. He is status post bypass surgery and today is postoperative day #4. Creatinine is elevated up to 7.3 today. He is getting treatment for hemodialysis started here in the ICU from. His Lasix drip and backup as well He remains on dopamine drip Blood pressure is borderline with systolic blood pressure is stable around 90s to 100. Hemoglobin 7.7, WBC within the reference range today 9000. Glucose was elevated more than 300 despite doubling the dose of Levemir last night to 5 mg twice a day. Therefore he was started on insulin drip This was discussed with patient in the thoracic primary team Objective - Vital Signs Vital signs: Vital Signs Temp 97.7 F 05/17/23 08:00 Pulse 81 05/17/23 10:00 Resp 05/17/23 10:00 BP 117/56 05/17/23 10:00 Pulse Ox 97 05/17/23 10:00 FiO2 50 05/13/23 15:13 Intake & Output 05/16/23 05/17/23 05/17/23 18:59 06:59 18:59 Intake Total 1681 1513.333 821 Output Total 124 92 24 Balance 1557 1421.333 797 Weight 113.7 kg Intake: IV 1087 1437 389 Calcium Gluconate in NaCl 100 2 gm In Saline 1 100ml. bag @ 100 mls/hr IVPB ONCE ONE Rx#:[id number] Dextrose 5% in Water 1, 600 900 225 000 ml @ 75 mls/hr IV . [id number] JESSICA with Sodium Bicarb (1 Meq/ml) 150 ml Rx#:[id number] Furosemide 100 mg In 75 225 60 Sodium Chloride 0.9% 90 ml @ 20 MG/HR 20 mls/hr IV .Q5H JESSICA Rx#:[id number] Lactated Ringers 1,000 ml 40 @ 20 mls/hr IV .Q24H JESSICA Rx#:[id number] Sodium Chloride 0.9% 500 200 240 80 ml 500 ml @ 20 mls/hr IV .Q24H [facility] Rx#:[id number] pressure bags 72 72 24 Intake, IV Titration 76.333 192 Amount Furosemide 100 mg In 76.333 Sodium Chloride 0.9% 90 ml @ 20 MG/HR 20 mls/hr IV .Q5H JESSICA Rx#:[id number] Furosemide 200 mg In 192 Sodium Chloride 0.9% 180 ml @ 20 MG/HR 20 mls/hr IV .Q10H JESSICA Rx#: [id number] Oral 594 240 Output: Chest Tube Drainage 70 20 10 Pleural Catheter Left 70 20 10 Pleural Catheter Right 0 Urine 54 72 14 Other: Voiding Method Indwelling Catheter Indwelling Catheter # Bowel Movements 1 ABP, PAP, CO, CI - Last Documented Arterial Blood Pressure 103/46 Pulmonary Artery Pressure 29/9 Cardiac Output 4.5 Cardiac Index 2.2 - Exam GENERAL: The patient is alert and oriented x3, not in any acute distress. Well developed, well nourished. HEENT: Pupils are round and equally reacting to light. EOMI. No scleral icterus. No conjunctival pallor. Normocephalic, atraumatic. No pharyngeal erythema. No thyromegaly. CARDIOVASCULAR: S1 and S2 present. No murmurs, rubs, or gallops. PULMONARY: Chest is clear to auscultation, no wheezing , no crackles. ABDOMEN: Soft, nontender, nondistended, normoactive bowel sounds. No palpable organomegaly. MUSCULOSKELETAL: No joint swelling or deformity. EXTREMITIES: No cyanosis, clubbing, or pedal edema. NEUROLOGICAL: Gross neurological examination did not reveal any focal deficits. SKIN: No rashes. no petechiae. - Labs CBC & Chem 7: 05/18/23 04:10 05/18/23 04:10 Labs: Abnormal Lab Results - Last 24 Hours (Table) 05/16/23 05/16/23 05/16/23 Range/Units 04:01 13:55 16:26 WBC (3.8-10.6) k/uL RBC (4.30-5.90) m/uL Hgb (13.0-17.5) gm/dL Hct (39.0-53.0) % Plt Count (150-450) k/uL Neutrophils # (1.3-7.7) k/uL Lymphocytes # (1.0-4.8) k/uL APTT (22.0-30.0) sec ABG pH (7.35-7.45) ABG pCO2 32 L (35-45) mmHg ABG pO2 78 L (83-108) mmHg ABG HCO3 20 L (21-25) mmol/L ABG Total CO2 (19-24) mmol/L ABG O2 Saturation (94-97) % Sodium (137-145) mmol/L Chloride (98-107) mmol/L Carbon Dioxide (22-30) mmol/L BUN (9-20) mg/dL Creatinine (0.66-1.25) mg/dL Glucose (74-99) mg/dL POC Glucose (mg/dL) 307 H (70-110) mg/dL Calcium (8.4-10.2) mg/dL AST (17-59) U/L Total Protein (6.3-8.2) g/dL Albumin (3.5-5.0) g/dL Procalcitonin 5.61 H (0.02-0.09) ng/mL 05/16/23 05/17/23 05/17/23 Range/Units 20:31 01:50 04:55 WBC 14.0 H 13.0 H (3.8-10.6) k/uL RBC 2.35 L 2.32 L (4.30-5.90) m/uL Hgb 7.9 L D 7.7 L (13.0-17.5) gm/dL Hct 22.1 L 22.1 L (39.0-53.0) % Plt Count 136 L 140 L (150-450) k/uL Neutrophils # 11.3 H (1.3-7.7) k/uL Lymphocytes # 0.8 L (1.0-4.8) k/uL APTT (22.0-30.0) sec ABG pH (7.35-7.45) ABG pCO2 (35-45) mmHg ABG pO2 (83-108) mmHg ABG HCO3 (21-25) mmol/L ABG Total CO2 (19-24) mmol/L ABG O2 Saturation (94-97) % Sodium (137-145) mmol/L Chloride (98-107) mmol/L Carbon Dioxide (22-30) mmol/L BUN (9-20) mg/dL Creatinine (0.66-1.25) mg/dL Glucose (74-99) mg/dL POC Glucose (mg/dL) 306 H (70-110) mg/dL Calcium (8.4-10.2) mg/dL AST (17-59) U/L Total Protein (6.3-8.2) g/dL Albumin (3.5-5.0) g/dL Procalcitonin (0.02-0.09) ng/mL 05/17/23 05/17/23 05/17/23 Range/Units 04:55 04:55 05:05 WBC (3.8-10.6) k/uL RBC (4.30-5.90) m/uL Hgb (13.0-17.5) gm/dL Hct (39.0-53.0) % Plt Count (150-450) k/uL Neutrophils # (1.3-7.7) k/uL Lymphocytes # (1.0-4.8) k/uL APTT 43.5 H (22.0-30.0) sec ABG pH (7.35-7.45) ABG pCO2 (35-45) mmHg ABG pO2 (83-108) mmHg ABG HCO3 (21-25) mmol/L ABG Total CO2 (19-24) mmol/L ABG O2 Saturation 97.4 H (94-97) % Sodium 132 L (137-145) mmol/L Chloride 97 L (98-107) mmol/L Carbon Dioxide 21 L (22-30) mmol/L BUN 67 H (9-20) mg/dL Creatinine 7.33 H* (0.66-1.25) mg/dL Glucose 226 H (74-99) mg/dL POC Glucose (mg/dL) (70-110) mg/dL Calcium 7.2 L (8.4-10.2) mg/dL AST 103 H (17-59) U/L Total Protein 4.6 L (6.3-8.2) g/dL Albumin 2.5 L (3.5-5.0) g/dL Procalcitonin (0.02-0.09) ng/mL 05/17/23 05/17/23 05/17/23 Range/Units 05:58 09:44 11:04 WBC (3.8-10.6) k/uL RBC (4.30-5.90) m/uL Hgb (13.0-17.5) gm/dL Hct (39.0-53.0) % Plt Count (150-450) k/uL Neutrophils # (1.3-7.7) k/uL Lymphocytes # (1.0-4.8) k/uL APTT (22.0-30.0) sec ABG pH (7.35-7.45) ABG pCO2 (35-45) mmHg ABG pO2 (83-108) mmHg ABG HCO3 (21-25) mmol/L ABG Total CO2 (19-24) mmol/L ABG O2 Saturation (94-97) % Sodium (137-145) mmol/L Chloride (98-107) mmol/L Carbon Dioxide (22-30) mmol/L BUN (9-20) mg/dL Creatinine (0.66-1.25) mg/dL Glucose (74-99) mg/dL POC Glucose (mg/dL) 264 H 338 H 241 H (70-110) mg/dL Calcium (8.4-10.2) mg/dL AST (17-59) U/L Total Protein (6.3-8.2) g/dL Albumin (3.5-5.0) g/dL Procalcitonin (0.02-0.09) ng/mL 05/17/23 05/17/23 Range/Units 11:57 12:09 WBC (3.8-10.6) k/uL RBC (4.30-5.90) m/uL Hgb (13.0-17.5) gm/dL Hct (39.0-53.0) % Plt Count (150-450) k/uL Neutrophils # (1.3-7.7) k/uL Lymphocytes # (1.0-4.8) k/uL APTT (22.0-30.0) sec ABG pH 7.47 H (7.35-7.45) ABG pCO2 34 L (35-45) mmHg ABG pO2 60 L (83-108) mmHg ABG HCO3 (21-25) mmol/L ABG Total CO2 26 H (19-24) mmol/L ABG O2 Saturation 92.6 L (94-97) % Sodium (137-145) mmol/L Chloride (98-107) mmol/L Carbon Dioxide (22-30) mmol/L BUN (9-20) mg/dL Creatinine (0.66-1.25) mg/dL Glucose (74-99) mg/dL POC Glucose (mg/dL) 191 H (70-110) mg/dL Calcium (8.4-10.2) mg/dL AST (17-59) U/L Total Protein (6.3-8.2) g/dL Albumin (3.5-5.0) g/dL Procalcitonin (0.02-0.09) ng/mL Assessment and Plan Assessment: Coronary artery disease status post CABG surgery on 05/13 Acute kidney injury on chronic kidney disease stage III. Requiring hemodialysis Cardiomyopathy with ejection fraction 40-45% Diabetes mellitus History of Hypertension, currently pressure is borderline Hyperlipidemia History of pulmonary embolism on Eliquis Leukocytosis, Improving Plan: Continue with Aspirin and Plavix Lasix drip And bicarb drip were discontinued Continue with amiodarone drip per critical care team. Started on hemodialysis per nephrology team Continue the breathing treatment Start insulin drip and monitor glucose Incentive spirometry Nephrology consult Several consultants on the case significant cardiothoracic surgery primary team, pulmonary team and cardiology team Labs and medication reviewed.. Continue same treatment. Continue with symptomatic treatment. Resume home medication. Monitor lytes and vitals. DVT and GI prophylaxis. Further recommendations depends on the clinical course of the patient DVT prophylaxis: Deferred to surgery team GI Prophylaxis: Ppi thank you for consulting us and we will follow up with the
[2023-05-18 06:14] LABS: Glucose,Whole Blood 123 mg/dL (70-110)
[2023-05-18] MEDS: MIDODRINE 5 MG TAB PO SCH ×4 (06:46→16:59)
[2023-05-18] MEDS: PANTOPRAZOLE 40 MG TABLET PO SCH (06:46)
[2023-05-18] MEDS ORDERED: POTASSIUM CHLORIDE 20 MEQ in WATER FOR INJECTION 1 100ML.BAG IVPB STA (06:47)
[2023-05-18 06:57] LABS: Glucose,Whole Blood 133 mg/dL (70-110)
--- NOTE | 2023-05-18 07:22 | CA ---
Transthoracic Echo Report Name: Kimo Birmingham Age: 68 Gender: M : 1955 Exam Date: 05/17/2023 13:48 Exam Location: [facility] Echo Ht (in): 65 Wt (lb): 250 Ordering Physician: Jaime Noland MD Attending/Referring Phys: Analytical Data Scientist Irma Barlow Procedure CPT: Indications: LV function, effusion Cardiac Hx: Follow up limited study. Technical Quality: Very technically difficult study Contrast 1: Total Dose (mL): Contrast 2: Total Dose (mL): MEASUREMENTS (Male / Female) Normal Values FINDINGS Left Ventricle Left ventricular systolic function moderately impaired with anteroapical hypokinesis Right Ventricle Right Atrium Left Atrium Mitral Valve Aortic Valve Tricuspid Valve Pulmonic Valve Pericardium Small pericardial effusion. Aorta CONCLUSIONS Technically limited study. Technically difficult study. Moderately impaired left ventricle systolic function Small pericardial effusion Previewed by: Dr. Diaz Ledezma MD (Electronically Signed) Final Date: 18 May 2023 07:21
[2023-05-18] MEDS: IPRATROPIUM-ALBUTEROL 3 ML NEB INHALATION SCH ×4 (07:38→20:18)
[2023-05-18] MEDS ORDERED: VANCOMYCIN IV PER PHARMACY 1 EACH MISC MISCELLANE PRN (07:44)
[2023-05-18 07:47] LABS: ABG Base Excess -4.7 mmol/L; ABG HCO3 20 mmol/L (21-25); ABG Oxygen Saturation 95.7 % (94-97); ABG PCO2 34 mmHg (35-45); ABG PH 7.39 (7.35-7.45); ABG PO2 74 mmHg (83-108); ABG TCO2 21 mmol/L (19-24); Allen Test Performed? Yes
[2023-05-18] MEDS ORDERED: VANCOMYCIN 1,750 MG in SODIUM CHLORIDE 0.9% 500 ML 500 ML IVPB ONE (08:00)
[2023-05-18 08:08] LABS: Glucose,Whole Blood 119 mg/dL (70-110)
--- NOTE | 2023-05-18 08:19 | XR ---
EXAMINATION TYPE: XR chest 1V portable DATE OF EXAM: 05/18/2023 HISTORY: Post cardiac surgery COMPARISON: 05/17/2023 TECHNIQUE: Single view of the chest is submitted. FINDINGS: Left-sided chest tube is unchanged in position. No evidence for sizable pneumothorax. Left atrial cli p is noted. Sternotomy wires and mediastinal clips are in place. There is right basilar atelectasis a nd pleural effusion. The heart is stable. Hilar and mediastinal structures are within normal limits. Degenerative changes are seen of the dorsal spine. IMPRESSION: 1. Left-sided chest tube is unchanged in position. No evidence for sizable pneumothorax. Left atrial clip is noted. Sternotomy wires and mediastinal clips are in place. There is right basilar atelectas is and pleural effusion.
[2023-05-18] MEDS ORDERED: ASPIRIN 300 MG SUPP RECTAL SCH (09:00)
[2023-05-18] MEDS ORDERED: PANTOPRAZOLE 40 MG/10 ML VIAL IVP SCH (09:00)
[2023-05-18] MEDS: SODIUM CHLORIDE 0.9% 500 ML 500 ML IV SCH (09:06)
--- NOTE | 2023-05-18 09:08 | P.PN ---
Subjective Progress Note Date: 05/18/23 Principal diagnosis: Two-vessel coronary artery disease. Past medical history significant for nonischemic cardiomyopathy with an ejection fraction of 25-30% which improved to an ejection fraction of 45-50% with intense medical therapy, history of left ventricular thrombus on transthoracic 2-D echocardiogram completed on 05/23/2023 which was organized and did did not appear acute, history of pulmonary embolus on eliquis on an outpatient basis, hypertension, diabetes mellitus, history of CVA with some residual right-sided weakness, COVID-19 infection in early 2021, acute on chronic kidney disease with a baseline creatinine of 2.0, and prostate disorder. POD #5 Off pump coronary artery bypass grafting x 2. Left internal thoracic artery (in-situ) to left anterior descending artery, saphenous vein from aorta to posterior descending artery, Endoscopic right greater saphenous vein harvest, Left atrial appendage ligation using 35mm AtriClip, Graft flow measurements using the [employer]-Stim flow meter system, and an intraoperative transesophageal echocardiogram performed by anesthesia. Postoperative acute blood loss anemia and thrombocytopenia, expected given hemodilution. Intra and postoperative hypotension, unexpected Acute kidney injury, likely secondary to hypoperfusion and history of chronic kidney disease with a baseline creatinine of 2.0, status post placement of temporary hemodialysis catheter. The patient was seen and examined in follow-up today 05/18/2023 at his bedside in the intensive care unit. He is currently laying in bed, opens eyes with verbal stimuli, is slow to respond verbally and is oriented 2, to place and person. Denies any complaints of pain, or shortness of breath. He is currently on norepinephrine drip 0.03 mcg/kg/m for blood pressure support. He does have a productive cough coughing up yellowish tenacious sputum. Oxygen saturation are 97% on 7 L high flow nasal cannula oxygen. ABG results this morning show a pH of 7.39, pCO2 34, pO2 74, HCO3 20, oxygen saturation 95.7 and base excess -4.7. Bedside telemetry showing normal sinus rhythm heart rate 63 BPM. Left pleural chest tube remains in place to low continuous wall suction -20 cm H2O. No air leak is present. Draining thin serosanguineous drainage with 30 mL output in the last 24 hours. The patient is following simple verbal commands and is moving all 4 extremities with verbal stimuli. Right IJ cordis remains in place with current CVP pressure 10 mmHg. Right radial arterial line remains in place. Chest x-ray and laboratory results reviewed. WBC 9.0, hemoglobin 7.7, hematocrit 22.2, platelets 130, sodium 135, potassium 3.5, chloride 100, CO2 20, BUN 50, creatinine 6.50, glucose 98, calcium 7.4, magnesium 2.0, AST 255 and ALT 19. The patient has been febrile throughout the night with a T-max temperature of 101.3F. Preliminary sputum culture results show few polymorphonuclear leukocytes, rare epithelial cells and rare gram-positive cocci. Urine culture from 05/15/2023 shows no growth after 18 hours. Objective - Vital Signs Vital signs: Vital Signs Temp 98.7 F 05/18/23 06:15 Pulse 74 05/18/23 07:56 Resp 19 05/18/23 07:00 BP 98/44 05/18/23 07:00 Pulse Ox 97 05/18/23 07:44 FiO2 50 05/13/23 15:13 Intake & Output 05/17/23 05/18/23 05/18/23 18:59 06:59 18:59 Intake Total 2147.561 1181.389 136.345 Output Total 486 90 Balance 6670.668 9867.389 136.345 Weight 115.2 kg Intake: IV 835.5 564.9 116 Albumin Human 5% 250 ml 250 In Empty Bag 1 bag @ 250 mls/hr IVPB ONCE ONE Rx#: [id number] Dextrose 5% in Water 1, 300 000 ml @ 75 mls/hr IV . [id number] JESSICA with Sodium Bicarb (1 Meq/ml) 150 ml Rx#:[id number] Dextrose/Water 1 250ml. 43.5 2.9 bag @ 3 MCG/KG/MIN 5.828 mls/hr IV .Q24H JESSICA with DOPamine DRIP 800 mg Rx#: [id number] Furosemide 100 mg In 80 Sodium Chloride 0.9% 90 ml @ 20 MG/HR 20 mls/hr IV .Q5H JESSICA Rx#:[id number] Potassium Chloride 20 meq 100 100 In Water For Injection 1 100ml.bag @ 50 mls/hr IVPB ONCE STA Rx#: [id number] Sodium Chloride 0.9% 500 240 240 10 ml 500 ml @ 20 mls/hr IV .Q24H JESSICA Rx#:[id number] pressure bags 72 72 6 Intake, IV Titration 262.061 60.489 20.345 Amount Furosemide 200 mg In 192 Sodium Chloride 0.9% 180 ml @ 20 MG/HR 20 mls/hr IV .Q10H JESSICA Rx#: [id number] Insulin Regular 100 unit 70.061 47.276 5.833 In Sodium Chloride 0.9% 100 ml @ Per Protocol IV .Q0M JESSICA Rx#:[id number] Norepinephrine 4 mg In 13.213 14.512 Sodium Chloride 0.9% 250 ml @ 0.03 MCG/KG/MIN 12. 996 mls/hr IV .[id number] JESSICA Rx#:[id number] Oral 240 Blood Product 310 556 Rc As-1 Unit 310 [id number] Rc Pheresis Irrad As 3 278 Unit [id number] Hemodialysis 500 Output: Chest Tube Drainage 40 50 Pleural Catheter Left 40 50 Urine 31 40 Hemodialysis 415 Other: Voiding Method Indwelling Catheter Indwelling Catheter # Bowel Movements 1 ABP, PAP, CO, CI - Last Documented Arterial Blood Pressure 93/41 Pulmonary Artery Pressure 29/9 Cardiac Output 4.5 Cardiac Index 2.2 - Exam CONSTITUTIONAL: Laying in bed in the intensive care unit, appears comfortable, cooperative, no apparent acute distress, generalized weakness, oriented [address] and person. HEENT: Neck is supple, no JVD, no lymphadenopathy. Right IJ Cordis in place and functioning. RESPIRATORY: Lungs sounds essentially clear throughout, diminished to his bilateral bases, right greater than left. Respirations are symmetrical and nonlabored. Currently on 7 L high flow nasal cannula with oxygen saturations 97%. Able to achieve 750-1000 mL on his incentive spirometry. Strong cough. CARDIOVASCULAR: Regular rhythm and rate. S1 and S2 present, negative for S3, gallop or murmur. Sternum is stable. Palpable peripheral pulses bilaterally, trace generalized edema. No calf pain or tenderness noted. Heart hugger in place. Knee-high GENNY hose and sequential compression devices in place to his bilateral lower extremities. GASTROINTESTINAL: Abdomen soft, nontender, nondistended. Active bowel sounds present 4 quadrants. Tolerating diet. Passing flatus. No guarding or rigidity. Large mucoid stool last evening. GENITOURINARY: Nelson present draining clear, yellow urine. Urine Output 25 mL in the last 8 hours, 70 mL output in the last 24 hours. Hemodialysis yesterday with 415 mL dialyzed. INTEGUMENTARY: Skin is warm and dry with no evidence of clubbing or cyanosis. Midline sternal incision clean dry and well approximated, covered with dry intact dressing. Right lower extremity EVH sites well approximated without redness or drainage. NEUROLOGIC: Cranial nerves II through XII intact. MUSKULOSKELETAL: Able to move all extremities, strength equal bilaterally, generalized weakness. Chronic right-sided weakness. PSYCHIATRIC: Alert and oriented to person and place. Disoriented to time. Appropriate affect. Extremely fatigued. INVASIVE LINES AND TUBES: Left pleural chest tube present and connected to low continuous wall suction, no air leaks present. Left pleural chest tube with 30 mL of thin serosanguineous drainage in the last 24 hours. Right internal jugular Cordis, right radial arterial line and right groin hemodialysis catheter present. Current CVP 10 mmHg. - Allied health notes Allied health notes reviewed: nursing - Labs CBC & Chem 7: 05/18/23 04:10 05/18/23 04:10 Labs: Abnormal Lab Results - Last 24 Hours (Table) 05/17/23 05/17/23 05/17/23 Range/Units 09:44 11:04 11:57 WBC (3.8-10.6) k/uL RBC (4.30-5.90) m/uL Hgb (13.0-17.5) gm/dL Hct (39.0-53.0) % Plt Count (150-450) k/uL Neutrophils # (1.3-7.7) k/uL Lymphocytes # (1.0-4.8) k/uL APTT (22.0-30.0) sec ABG pH (7.35-7.45) ABG pCO2 (35-45) mmHg ABG pO2 (83-108) mmHg ABG HCO3 (21-25) mmol/L ABG Total CO2 (19-24) mmol/L ABG O2 Saturation (94-97) % Sodium (137-145) mmol/L Carbon Dioxide (22-30) mmol/L BUN (9-20) mg/dL Creatinine (0.66-1.25) mg/dL Glucose (74-99) mg/dL POC Glucose (mg/dL) 338 H 241 H 191 H (70-110) mg/dL Calcium (8.4-10.2) mg/dL AST (17-59) U/L Total Protein (6.3-8.2) g/dL Albumin (3.5-5.0) g/dL Crossmatch 05/17/23 05/17/23 05/17/23 Range/Units 12:06 12:06 12:06 WBC 14.4 H (3.8-10.6) k/uL RBC 2.46 L (4.30-5.90) m/uL Hgb 8.1 L (13.0-17.5) gm/dL Hct 22.9 L (39.0-53.0) % Plt Count (150-450) k/uL Neutrophils # 12.7 H (1.3-7.7) k/uL Lymphocytes # 0.6 L (1.0-4.8) k/uL APTT 44.5 H (22.0-30.0) sec ABG pH (7.35-7.45) ABG pCO2 (35-45) mmHg ABG pO2 (83-108) mmHg ABG HCO3 (21-25) mmol/L ABG Total CO2 (19-24) mmol/L ABG O2 Saturation (94-97) % Sodium 133 L (137-145) mmol/L Carbon Dioxide (22-30) mmol/L BUN 38 H (9-20) mg/dL Creatinine 4.09 H (0.66-1.25) mg/dL Glucose 166 H (74-99) mg/dL POC Glucose (mg/dL) (70-110) mg/dL Calcium 7.8 L (8.4-10.2) mg/dL AST 420 H (17-59) U/L Total Protein 5.9 L (6.3-8.2) g/dL Albumin 2.9 L (3.5-5.0) g/dL Crossmatch 05/17/23 05/17/23 05/17/23 Range/Units 12:06 12:09 13:09 WBC (3.8-10.6) k/uL RBC (4.30-5.90) m/uL Hgb (13.0-17.5) gm/dL Hct (39.0-53.0) % Plt Count (150-450) k/uL Neutrophils # (1.3-7.7) k/uL Lymphocytes # (1.0-4.8) k/uL APTT (22.0-30.0) sec ABG pH 7.47 H (7.35-7.45) ABG pCO2 34 L (35-45) mmHg ABG pO2 60 L (83-108) mmHg ABG HCO3 (21-25) mmol/L ABG Total CO2 26 H (19-24) mmol/L ABG O2 Saturation 92.6 L (94-97) % Sodium (137-145) mmol/L Carbon Dioxide (22-30) mmol/L BUN (9-20) mg/dL Creatinine (0.66-1.25) mg/dL Glucose (74-99) mg/dL POC Glucose (mg/dL) 174 H (70-110) mg/dL Calcium (8.4-10.2) mg/dL AST (17-59) U/L Total Protein (6.3-8.2) g/dL Albumin (3.5-5.0) g/dL Crossmatch See Detail 05/17/23 05/17/23 05/17/23 Range/Units 14:39 16:09 17:07 WBC (3.8-10.6) k/uL RBC (4.30-5.90) m/uL Hgb (13.0-17.5) gm/dL Hct (39.0-53.0) % Plt Count (150-450) k/uL Neutrophils # (1.3-7.7) k/uL Lymphocytes # (1.0-4.8) k/uL APTT (22.0-30.0) sec ABG pH (7.35-7.45) ABG pCO2 (35-45) mmHg ABG pO2 (83-108) mmHg ABG HCO3 (21-25) mmol/L ABG Total CO2 (19-24) mmol/L ABG O2 Saturation (94-97) % Sodium (137-145) mmol/L Carbon Dioxide (22-30) mmol/L BUN (9-20) mg/dL Creatinine (0.66-1.25) mg/dL Glucose (74-99) mg/dL POC Glucose (mg/dL) 143 H 133 H 122 H (70-110) mg/dL Calcium (8.4-10.2) mg/dL AST (17-59) U/L Total Protein (6.3-8.2) g/dL Albumin (3.5-5.0) g/dL Crossmatch 05/17/23 05/17/23 05/17/23 Range/Units 18:11 19:28 20:15 WBC (3.8-10.6) k/uL RBC (4.30-5.90) m/uL Hgb (13.0-17.5) gm/dL Hct (39.0-53.0) % Plt Count (150-450) k/uL Neutrophils # (1.3-7.7) k/uL Lymphocytes # (1.0-4.8) k/uL APTT (22.0-30.0) sec ABG pH (7.35-7.45) ABG pCO2 (35-45) mmHg ABG pO2 (83-108) mmHg ABG HCO3 (21-25) mmol/L ABG Total CO2 (19-24) mmol/L ABG O2 Saturation (94-97) % Sodium (137-145) mmol/L Carbon Dioxide (22-30) mmol/L BUN (9-20) mg/dL Creatinine (0.66-1.25) mg/dL Glucose (74-99) mg/dL POC Glucose (mg/dL) 114 H 132 H 133 H (70-110) mg/dL Calcium (8.4-10.2) mg/dL AST (17-59) U/L Total Protein (6.3-8.2) g/dL Albumin (3.5-5.0) g/dL Crossmatch 05/17/23 05/17/23 05/17/23 Range/Units 21:19 22:08 23:09 WBC (3.8-10.6) k/uL RBC (4.30-5.90) m/uL Hgb (13.0-17.5) gm/dL Hct (39.0-53.0) % Plt Count (150-450) k/uL Neutrophils # (1.3-7.7) k/uL Lymphocytes # (1.0-4.8) k/uL APTT (22.0-30.0) sec ABG pH (7.35-7.45) ABG pCO2 (35-45) mmHg ABG pO2 (83-108) mmHg ABG HCO3 (21-25) mmol/L ABG Total CO2 (19-24) mmol/L ABG O2 Saturation (94-97) % Sodium (137-145) mmol/L Carbon Dioxide (22-30) mmol/L BUN (9-20) mg/dL Creatinine (0.66-1.25) mg/dL Glucose (74-99) mg/dL POC Glucose (mg/dL) 135 H 132 H 120 H (70-110) mg/dL Calcium (8.4-10.2) mg/dL AST (17-59) U/L Total Protein (6.3-8.2) g/dL Albumin (3.5-5.0) g/dL Crossmatch 05/18/23 05/18/23 05/18/23 Range/Units 00:13 01:14 01:48 WBC (3.8-10.6) k/uL RBC (4.30-5.90) m/uL Hgb (13.0-17.5) gm/dL Hct (39.0-53.0) % Plt Count (150-450) k/uL Neutrophils # (1.3-7.7) k/uL Lymphocytes # (1.0-4.8) k/uL APTT (22.0-30.0) sec ABG pH (7.35-7.45) ABG pCO2 (35-45) mmHg ABG pO2 (83-108) mmHg ABG HCO3 (21-25) mmol/L ABG Total CO2 (19-24) mmol/L ABG O2 Saturation (94-97) % Sodium (137-145) mmol/L Carbon Dioxide (22-30) mmol/L BUN (9-20) mg/dL Creatinine (0.66-1.25) mg/dL Glucose (74-99) mg/dL POC Glucose (mg/dL) 113 H 125 H 128 H (70-110) mg/dL Calcium (8.4-10.2) mg/dL AST (17-59) U/L Total Protein (6.3-8.2) g/dL Albumin (3.5-5.0) g/dL Crossmatch 05/18/23 05/18/23 05/18/23 Range/Units 02:09 02:58 04:10 WBC (3.8-10.6) k/uL RBC 2.35 L (4.30-5.90) m/uL Hgb 7.7 L (13.0-17.5) gm/dL Hct 22.2 L (39.0-53.0) % Plt Count 130 L (150-450) k/uL Neutrophils # (1.3-7.7) k/uL Lymphocytes # (1.0-4.8) k/uL APTT (22.0-30.0) sec ABG pH (7.35-7.45) ABG pCO2 (35-45) mmHg ABG pO2 (83-108) mmHg ABG HCO3 (21-25) mmol/L ABG Total CO2 (19-24) mmol/L ABG O2 Saturation (94-97) % Sodium (137-145) mmol/L Carbon Dioxide (22-30) mmol/L BUN (9-20) mg/dL Creatinine (0.66-1.25) mg/dL Glucose (74-99) mg/dL POC Glucose (mg/dL) 125 H 118 H (70-110) mg/dL Calcium (8.4-10.2) mg/dL AST (17-59) U/L Total Protein (6.3-8.2) g/dL Albumin (3.5-5.0) g/dL Crossmatch 05/18/23 05/18/23 05/18/23 Range/Units 04:10 04:15 05:29 WBC (3.8-10.6) k/uL RBC (4.30-5.90) m/uL Hgb (13.0-17.5) gm/dL Hct (39.0-53.0) % Plt Count (150-450) k/uL Neutrophils # (1.3-7.7) k/uL Lymphocytes # (1.0-4.8) k/uL APTT (22.0-30.0) sec ABG pH (7.35-7.45) ABG pCO2 (35-45) mmHg ABG pO2 (83-108) mmHg ABG HCO3 (21-25) mmol/L ABG Total CO2 (19-24) mmol/L ABG O2 Saturation (94-97) % Sodium 135 L (137-145) mmol/L Carbon Dioxide 20 L (22-30) mmol/L BUN 50 H (9-20) mg/dL Creatinine 6.50 H (0.66-1.25) mg/dL Glucose (74-99) mg/dL POC Glucose (mg/dL) 114 H 139 H (70-110) mg/dL Calcium 7.4 L (8.4-10.2) mg/dL AST 255 H (17-59) U/L Total Protein 5.5 L (6.3-8.2) g/dL Albumin 2.8 L (3.5-5.0) g/dL Crossmatch 05/18/23 05/18/23 05/18/23 Range/Units 06:12 06:55 07:37 WBC (3.8-10.6) k/uL RBC (4.30-5.90) m/uL Hgb (13.0-17.5) gm/dL Hct (39.0-53.0) % Plt Count (150-450) k/uL Neutrophils # (1.3-7.7) k/uL Lymphocytes # (1.0-4.8) k/uL APTT (22.0-30.0) sec ABG pH (7.35-7.45) ABG pCO2 34 L (35-45) mmHg ABG pO2 74 L (83-108) mmHg ABG HCO3 20 L (21-25) mmol/L ABG Total CO2 (19-24) mmol/L ABG O2 Saturation (94-97) % Sodium (137-145) mmol/L Carbon Dioxide (22-30) mmol/L BUN (9-20) mg/dL Creatinine (0.66-1.25) mg/dL Glucose (74-99) mg/dL POC Glucose (mg/dL) 123 H 133 H (70-110) mg/dL Calcium (8.4-10.2) mg/dL AST (17-59) U/L Total Protein (6.3-8.2) g/dL Albumin (3.5-5.0) g/dL Crossmatch 05/18/23 Range/Units 08:06 WBC (3.8-10.6) k/uL RBC (4.30-5.90) m/uL Hgb (13.0-17.5) gm/dL Hct (39.0-53.0) % Plt Count (150-450) k/uL Neutrophils # (1.3-7.7) k/uL Lymphocytes # (1.0-4.8) k/uL APTT (22.0-30.0) sec ABG pH (7.35-7.45) ABG pCO2 (35-45) mmHg ABG pO2 (83-108) mmHg ABG HCO3 (21-25) mmol/L ABG Total CO2 (19-24) mmol/L ABG O2 Saturation (94-97) % Sodium (137-145) mmol/L Carbon Dioxide (22-30) mmol/L BUN (9-20) mg/dL Creatinine (0.66-1.25) mg/dL Glucose (74-99) mg/dL POC Glucose (mg/dL) 119 H (70-110) mg/dL Calcium (8.4-10.2) mg/dL AST (17-59) U/L Total Protein (6.3-8.2) g/dL Albumin (3.5-5.0) g/dL Crossmatch Microbiology - Last 24 Hours (Table) 05/17/23 08:15 Gram Stain - Preliminary Sputum 05/15/23 20:00 Urine Culture - Final Urine,Catheterized - Imaging and Cardiology Chest x-ray: report reviewed, image reviewed Assessment and Plan Assessment: Two-vessel coronary artery disease, status post off pump 2 vessel coronary artery bypass grafting surgery Nonischemic cardiomyopathy with an EF of 45-50% History of left ventricular thrombus on transthoracic 2-D echocardiogram on 05/23/2023 which was organized and did not appear to be acute History of pulmonary embolus on eliquis on an outpatient basis History of hypertension Diabetes mellitus, with a preoperative hemoglobin A1c 7.4% History of CVA with some residual right-sided weakness COVID-19 infection in early 2021 Chronic kidney disease stage IV with a baseline creatinine of 2.0 Prostate disorder Postoperative acute blood loss anemia and thrombocytopenia, expected given hemodilution Postoperative hypotension, unexpected Acute kidney injury, hemodynamic ATN with borderline urine output, likely secondary to hypoperfusion, status post temporary hemodialysis catheter placement Plan: Continue to maximize medical therapy with aspirin, statin, Plavix, beta keara. Will hold beta keara today. Discontinue dopamine drip. Wean O2 as tolerated. Encourage incentive spirometry use 10 times every hour while awake. Bronchodilators per pulmonology. Continue to follow sputum culture results. Continue Midodrine 10 mg by mouth 3 times a day to help with blood pressure support. Hold for systolic blood pressure greater than 120 mmHg. Will monitor daily labs and chest x-rays. Electrolyte replacement per protocol. GI/DVT prophylaxis. Increase activity as tolerated. PT/OT/cardiac rehab following. Pain control with current medication regimen. No Toradol due to kidney disease. Avoid narcotics due to the patient's altered mental status. Insulin management per internal medicine service, patient's preoperative hemogl obin A1c was 7.4%. Patient needs tight glucose control to promote of sternal wound healing. Keep left pleural chest tube in place. Continue Nelson catheter for strict accurate intake and output. Avoid nephrotoxic agents, creatinine today is 6.50. Daily weights. Calcium gluconate 2 g IV piggyback 1 now. Send ammonia level. Send blood cultures, sputum culture and UA with reflex culture, patient was febrile as high as 101.3 in the last 24 hours. Start vancomycin for pharmacy to dose and cefepime 500 mg IV piggyback every 24 hours. Keep right IJ Cordis in place with continuous CVP monitoring. ABG 1. Ultrasound right chest with markings. Consult neurology for altered mental status. Start Mucomyst, the patient has productive cough with thick tenacious yellow sputum. More recommendations to follow based on patient's clinical course. Time with Patient: Greater than 30
[2023-05-18 09:10] LABS: Glucose,Whole Blood 117 mg/dL (70-110)
--- NOTE | 2023-05-18 09:30 | P.PN ---
Subjective Progress Note Date: 05/18/23 This is a 68-year-old male patient with a known history of coronary artery disease, hypertension, hyperlipidemia, diabetes mellitus, benign prostatic hyperplasia, pulmonary embolism anticoagulated with Eliquis. He also has a history of COVID-19 infection and subsequent CVA felt to be secondary to hyperco agulability. In March 2023 at undergone cardiac catheterization that revealed a chronic total occlusion of the right coronary artery which fills by collaterals circulation, chronic total occlusion of the mid LAD by the bifurcation of the large diagonal branch with flush occlusion. The LAD fills by ipsilateral collaterals. He was recommended coronary artery bypass grafting. Echocardiogram revealed moderate LV dysfunction with ejection fraction of 40- 45%. He was brought in today for an elective surgery. He had undergone an off- pump coronary artery bypass grafting 2 with the left internal thoracic artery to the left anterior descending artery, saphenous vein graft from the aorta to the posterior descending artery. Left atrial appendage ligation with a 35mm Atriclip. He is seen postoperatively in the intensive care unit. He is intubated on the mechanical ventilator and assist control mode with a rate of 14, tidal volume 500, FiO2 50% and a PEEP of 10. Initial arterial blood gases revealed a PaO2 of 387, P CO2 of 41 and a pH of 7.31 on 100% FiO2. Sodium 137. Potassium 4.3. Bicarb 20. BUN 39. Creatinine 2.33. Glucose 154. Calcium 7.9. Magnesium 2.4. AST 21. ALT 16. Albumin 3.0. He is currently on dopamine at 2 mcg/kg/m. Milrinone at 0.3 mcg/kg/m. Norepinephrine at 0.06 mcg/kg/m propofol currently on hold. Insulin drip at 6 units per hour. Lactated Ringer's at 50 MLS per hour. PA pressure 43/19. Cardiac output 5.9. Cardiac index 2.8. Backup pacing at a rate of 50 bpm. Right and left pleural chest tubes in place with a small leak. Mediastinal chest tubes 2. Just x-ray reveals postsurgical changes. Bilateral chest tubes without evidence of sizable pneumothorax. Iuka-Misha catheter, mediastinal drain, endotracheal and gastric tube secured in place. Patient was reevaluated today on 05/14/2023, patient is doing well, he is postoperative day #1, patient is requiring multiple drips including dopamine at 3 mcg/kg/m, norepinephrine at 0.02 mcg/kg/m, he is on insulin at 4 units per hour, and lactated Ringer's at 40 mL per hour. Cardiac index is 2.2. Cardiac output is 4.5. Urine output is marginal between 15-20 mL per hour. Patient is on 1 L nasal cannula, does not seem to be in distress, sitting at a bedside chair. Chest x-ray showed minimal basilar atelectasis and small pleural effusions with cardiomegaly and postoperative changes. WBC count is 12.9 hemoglobin is 10.7. Basic metabolic profile is normal however his BUN is 43 creatinine is rising up to 2.83, baseline yesterday was 2.33. Patient is achieving about 1000 mL via incentive spirometry Reevaluated today on 05/15/2023, patient is sitting up at the bedside chair, awake, oriented 3, does not seem to be in any distress. Patient is on 2 L nasal cannula, O2 sats is 94%, remains on dopamine drip at 3 mcg/kg/m, his urine output remains marginal and poor, however the patient's creatinine jumped up significantly over the last 24 hours, I believe the patient may have developed acute tubular necrosis from hypotension, nonetheless clinically the patient is doing better than expected. He was seen by nephrology for his renal failure.pleural and mediastinal chest tubes noted, remain in place, Nelson catheter remains in place. Labs were reviewed today, creatinine is up to 4.03 BUN is 48. Hemoglobin is 9.9. WBC count is 15.3.chest x-ray showed mostly postsurgical changes and bilateral chest tubes without evidence of any pneumothorax. Small right-sided pleural effusion is noted. Patient was reevaluated today on 05/16/2023, doing well from the pulmonary perspective, but doing poorly from the renal perspective. Patient continues to develop worsening renal failure, being followed by nephrology, and I believe the patient may be heading towards hemodialysis. Creatinine is up to 5.9 this morning. Bicarb is low. Patient remains on dopamine at 3 mcg/kg/m with very poor urine output. Chest x-ray is showing postsurgical changes and small right- sided pleural effusion no pneumothorax, no evidence of pneumonia . Bicarb is low, creatinine is high, but sugar is 200, his ventricular epicardial pacemaker wires were removed yesterday. Mediastinal chest tube was removed yesterday, continues to have right IJ Cordis in place, and continues to have CVP monitoring. CVP today is 6. Right-sided and left-sided pleural chest tubes remain in place. Nelson catheter remains in place. Patient had only 120 mL of urine output in the last 8 hours. And about 400 in the last 24 hours. The patient is seen today 05/17/2023 in follow-up in the intensive care unit. He is currently sitting up in bed. Awake and alert in no acute distress. Postoperative day #4. He is maintaining O2 saturations in the 90s on 4 L/m per nasal cannula. He has normal saline at KVO. Dopamine drip at 3 mcg/kg/min. Insulin drip at 11 units per hour. D5W with 3 A of sodium bicarb at 75 ML's per hour. Lasix drip at 20 mg per hour. He is oliguric. He did receive a right femoral temporary hemodialysis catheter placed last evening. Plan is for hemodialysis today. White count 13.0. Hemoglobin 7.7. Platelets 140. Sodium 132. Potassium 4.1. Bicarb 21. BUN 67. Creatinine 7.33. Glucose 226. Arterial blood gases revealed a pO2 of 87, pCO2 35. PH 7.42. Left pleural chest tube remains in place to wall suction. No significant leak noted. Right internal Cordis in place. Right radial art line in place. As x-ray reveals no evidence of pneumothorax. Mild cardiomegaly and a right pleural effusion. Continues to work with the incentive spirometer. Continued on bronchodilators. The patient is seen today 05/18/2023 in follow-up in the intensive care unit. He is currently resting in bed. Awake and alert. Postoperative day #5. He is currently maintaining O2 saturations in the 90s on 7 L high flow nasal cannula. Blood gases revealed a PaO2 of 74, pCO2 34 and a pH of 7.39. He remains on lactated Ringer's at KVO. Insulin drip at 4.5 units per hour. Norepinephrine is currently on hold. Ultrasound of the chest is pending. He is status post 2 units of packed red blood cells this admission. Current hemoglobin 7.7. Platelets 130,000. White count 9.0. Sodium 135. Potassium 3.5. Bicarb 20. BUN 50. Creatinine 6.50. Glucose 98. AST to 55. ALT 19. Hepatitis B screen negative. He did not tolerate hemodialysis yesterday. To be attempted again today. Echocardiogram revealed moderately impaired left ventricular systolic function and small pericardial effusion. Computed tomography scan of the brain revealed no acute intracranial process. Current CVP of 10 mmHg. He did have a T-max of 101.3 early this morning. Currently afebrile. Urine culture revealed no growth. Sputum culture pending. Currently on vancomycin. Objective - Vital Signs Vital signs: Vital Signs Temp 98.7 F 05/18/23 06:15 Pulse 74 05/18/23 07:56 Resp 19 05/18/23 07:00 BP 98/44 05/18/23 07:00 Pulse Ox 97 05/18/23 07:44 FiO2 50 05/13/23 15:13 Intake & Output 05/17/23 05/18/23 05/18/23 18:59 06:59 18:59 Intake Total 2147.561 1181.389 140.027 Output Total 486 90 Balance 7301.789 9849.389 140.027 Weight 115.2 kg Intake: IV 835.5 564.9 116 Albumin Human 5% 250 ml 250 In Empty Bag 1 bag @ 250 mls/hr IVPB ONCE ONE Rx#: [id number] Dextrose 5% in Water 1, 300 000 ml @ 75 mls/hr IV . [id number] JESSICA with Sodium Bicarb (1 Meq/ml) 150 ml Rx#:[id number] Dextrose/Water 1 250ml. 43.5 2.9 bag @ 3 MCG/KG/MIN 5.828 mls/hr IV .Q24H JESSICA with DOPamine DRIP 800 mg Rx#: [id number] Furosemide 100 mg In 80 Sodium Chloride 0.9% 90 ml @ 20 MG/HR 20 mls/hr IV .Q5H JESSICA Rx#:[id number] Potassium Chloride 20 meq 100 100 In Water For Injection 1 100ml.bag @ 50 mls/hr IVPB ONCE STA Rx#: [id number] Sodium Chloride 0.9% 500 240 240 10 ml 500 ml @ 20 mls/hr IV .Q24H JESSICA Rx#:[id number] pressure bags 72 72 6 Intake, IV Titration 262.061 60.489 24.027 Amount Furosemide 200 mg In 192 Sodium Chloride 0.9% 180 ml @ 20 MG/HR 20 mls/hr IV .Q10H JESSICA Rx#: [id number] Insulin Regular 100 unit 70.061 47.276 5.833 In Sodium Chloride 0.9% 100 ml @ Per Protocol IV .Q0M JESSICA Rx#:[id number] Norepinephrine 4 mg In 13.213 18.194 Sodium Chloride 0.9% 250 ml @ 0.03 MCG/KG/MIN 12. 996 mls/hr IV .[id number] JESSICA Rx#:[id number] Oral 240 Blood Product 310 556 Rc As-1 Unit 310 [id number] Rc Pheresis Irrad As 3 278 Unit [id number] Hemodialysis 500 Output: Chest Tube Drainage 40 50 Pleural Catheter Left 40 50 Urine 31 40 Hemodialysis 415 Other: Voiding Method Indwelling Catheter Indwelling Catheter # Bowel Movements 1 ABP, PAP, CO, CI - Last Documented Arterial Blood Pressure 93/41 Pulmonary Artery Pressure 29/9 Cardiac Output 4.5 Cardiac Index 2.2 - Exam GENERAL EXAM: Alert, oriented 2 68-year-old male patient, on 7 L high flow nasal cannula, fairly comfortable in no apparent distress. HEAD: Normocephalic. EYES: Normal reaction of pupils, equal size. NOSE: Clear with pink turbinates. THROAT: No erythema or exudates. NECK: Right IJ Cordis in place. No masses, no JVD. CHEST: Sternal dressing dry and intact. Heart hugger in place. Left pleural chest tube in place to wall suction. No leak. LUNGS: Equal air entry with crackles in the right lung base. CVS: S1 and S2 normal with no audible murmur, regular rhythm. ABDOMEN: No hepatosplenomegaly, normal bowel sounds, no guarding or rigidity. SPINE: No scoliosis or deformity SKIN: No rashes CENTRAL NERVOUS SYSTEM: No focal deficits, tone is normal in all 4 extremities. EXTREMITIES: Right femoral hemodialysis catheter in place. SCDs in place. Right radial arterial line in place. Peripheral pulses are intact. - Labs CBC & Chem 7: 05/18/23 04:10 05/18/23 04:10 Labs: Abnormal Lab Results - Last 24 Hours (Table) 05/17/23 05/17/23 05/17/23 Range/Units 09:44 11:04 11:57 WBC (3.8-10.6) k/uL RBC (4.30-5.90) m/uL Hgb (13.0-17.5) gm/dL Hct (39.0-53.0) % Plt Count (150-450) k/uL Neutrophils # (1.3-7.7) k/uL Lymphocytes # (1.0-4.8) k/uL APTT (22.0-30.0) sec ABG pH (7.35-7.45) ABG pCO2 (35-45) mmHg ABG pO2 (83-108) mmHg ABG HCO3 (21-25) mmol/L ABG Total CO2 (19-24) mmol/L ABG O2 Saturation (94-97) % Sodium (137-145) mmol/L Carbon Dioxide (22-30) mmol/L BUN (9-20) mg/dL Creatinine (0.66-1.25) mg/dL Glucose (74-99) mg/dL POC Glucose (mg/dL) 338 H 241 H 191 H (70-110) mg/dL Calcium (8.4-10.2) mg/dL AST (17-59) U/L Total Protein (6.3-8.2) g/dL Albumin (3.5-5.0) g/dL Crossmatch 05/17/23 05/17/23 05/17/23 Range/Units 12:06 12:06 12:06 WBC 14.4 H (3.8-10.6) k/uL RBC 2.46 L (4.30-5.90) m/uL Hgb 8.1 L (13.0-17.5) gm/dL Hct 22.9 L (39.0-53.0) % Plt Count (150-450) k/uL Neutrophils # 12.7 H (1.3-7.7) k/uL Lymphocytes # 0.6 L (1.0-4.8) k/uL APTT 44.5 H (22.0-30.0) sec ABG pH (7.35-7.45) ABG pCO2 (35-45) mmHg ABG pO2 (83-108) mmHg ABG HCO3 (21-25) mmol/L ABG Total CO2 (19-24) mmol/L ABG O2 Saturation (94-97) % Sodium 133 L (137-145) mmol/L Carbon Dioxide (22-30) mmol/L BUN 38 H (9-20) mg/dL Creatinine 4.09 H (0.66-1.25) mg/dL Glucose 166 H (74-99) mg/dL POC Glucose (mg/dL) (70-110) mg/dL Calcium 7.8 L (8.4-10.2) mg/dL AST 420 H (17-59) U/L Total Protein 5.9 L (6.3-8.2) g/dL Albumin 2.9 L (3.5-5.0) g/dL Crossmatch 05/17/23 05/17/23 05/17/23 Range/Units 12:06 12:09 13:09 WBC (3.8-10.6) k/uL RBC (4.30-5.90) m/uL Hgb (13.0-17.5) gm/dL Hct (39.0-53.0) % Plt Count (150-450) k/uL Neutrophils # (1.3-7.7) k/uL Lymphocytes # (1.0-4.8) k/uL APTT (22.0-30.0) sec ABG pH 7.47 H (7.35-7.45) ABG pCO2 34 L (35-45) mmHg ABG pO2 60 L (83-108) mmHg ABG HCO3 (21-25) mmol/L ABG Total CO2 26 H (19-24) mmol/L ABG O2 Saturation 92.6 L (94-97) % Sodium (137-145) mmol/L Carbon Dioxide (22-30) mmol/L BUN (9-20) mg/dL Creatinine (0.66-1.25) mg/dL Glucose (74-99) mg/dL POC Glucose (mg/dL) 174 H (70-110) mg/dL Calcium (8.4-10.2) mg/dL AST (17-59) U/L Total Protein (6.3-8.2) g/dL Albumin (3.5-5.0) g/dL Crossmatch See Detail 05/17/23 05/17/23 05/17/23 Range/Units 14:39 16:09 17:07 WBC (3.8-10.6) k/uL RBC (4.30-5.90) m/uL Hgb (13.0-17.5) gm/dL Hct (39.0-53.0) % Plt Count (150-450) k/uL Neutrophils # (1.3-7.7) k/uL Lymphocytes # (1.0-4.8) k/uL APTT (22.0-30.0) sec ABG pH (7.35-7.45) ABG pCO2 (35-45) mmHg ABG pO2 (83-108) mmHg ABG HCO3 (21-25) mmol/L ABG Total CO2 (19-24) mmol/L ABG O2 Saturation (94-97) % Sodium (137-145) mmol/L Carbon Dioxide (22-30) mmol/L BUN (9-20) mg/dL Creatinine (0.66-1.25) mg/dL Glucose (74-99) mg/dL POC Glucose (mg/dL) 143 H 133 H 122 H (70-110) mg/dL Calcium (8.4-10.2) mg/dL AST (17-59) U/L Total Protein (6.3-8.2) g/dL Albumin (3.5-5.0) g/dL Crossmatch 05/17/23 05/17/23 05/17/23 Range/Units 18:11 19:28 20:15 WBC (3.8-10.6) k/uL RBC (4.30-5.90) m/uL Hgb (13.0-17.5) gm/dL Hct (39.0-53.0) % Plt Count (150-450) k/uL Neutrophils # (1.3-7.7) k/uL Lymphocytes # (1.0-4.8) k/uL APTT (22.0-30.0) sec ABG pH (7.35-7.45) ABG pCO2 (35-45) mmHg ABG pO2 (83-108) mmHg ABG HCO3 (21-25) mmol/L ABG Total CO2 (19-24) mmol/L ABG O2 Saturation (94-97) % Sodium (137-145) mmol/L Carbon Dioxide (22-30) mmol/L BUN (9-20) mg/dL Creatinine (0.66-1.25) mg/dL Glucose (74-99) mg/dL POC Glucose (mg/dL) 114 H 132 H 133 H (70-110) mg/dL Calcium (8.4-10.2) mg/dL AST (17-59) U/L Total Protein (6.3-8.2) g/dL Albumin (3.5-5.0) g/dL Crossmatch 05/17/23 05/17/23 05/17/23 Range/Units 21:19 22:08 23:09 WBC (3.8-10.6) k/uL RBC (4.30-5.90) m/uL Hgb (13.0-17.5) gm/dL Hct (39.0-53.0) % Plt Count (150-450) k/uL Neutrophils # (1.3-7.7) k/uL Lymphocytes # (1.0-4.8) k/uL APTT (22.0-30.0) sec ABG pH (7.35-7.45) ABG pCO2 (35-45) mmHg ABG pO2 (83-108) mmHg ABG HCO3 (21-25) mmol/L ABG Total CO2 (19-24) mmol/L ABG O2 Saturation (94-97) % Sodium (137-145) mmol/L Carbon Dioxide (22-30) mmol/L BUN (9-20) mg/dL Creatinine (0.66-1.25) mg/dL Glucose (74-99) mg/dL POC Glucose (mg/dL) 135 H 132 H 120 H (70-110) mg/dL Calcium (8.4-10.2) mg/dL AST (17-59) U/L Total Protein (6.3-8.2) g/dL Albumin (3.5-5.0) g/dL Crossmatch 05/18/23 05/18/23 05/18/23 Range/Units 00:13 01:14 01:48 WBC (3.8-10.6) k/uL RBC (4.30-5.90) m/uL Hgb (13.0-17.5) gm/dL Hct (39.0-53.0) % Plt Count (150-450) k/uL Neutrophils # (1.3-7.7) k/uL Lymphocytes # (1.0-4.8) k/uL APTT (22.0-30.0) sec ABG pH (7.35-7.45) ABG pCO2 (35-45) mmHg ABG pO2 (83-108) mmHg ABG HCO3 (21-25) mmol/L ABG Total CO2 (19-24) mmol/L ABG O2 Saturation (94-97) % Sodium (137-145) mmol/L Carbon Dioxide (22-30) mmol/L BUN (9-20) mg/dL Creatinine (0.66-1.25) mg/dL Glucose (74-99) mg/dL POC Glucose (mg/dL) 113 H 125 H 128 H (70-110) mg/dL Calcium (8.4-10.2) mg/dL AST (17-59) U/L Total Protein (6.3-8.2) g/dL Albumin (3.5-5.0) g/dL Crossmatch 05/18/23 05/18/23 05/18/23 Range/Units 02:09 02:58 04:10 WBC (3.8-10.6) k/uL RBC 2.35 L (4.30-5.90) m/uL Hgb 7.7 L (13.0-17.5) gm/dL Hct 22.2 L (39.0-53.0) % Plt Count 130 L (150-450) k/uL Neutrophils # (1.3-7.7) k/uL Lymphocytes # (1.0-4.8) k/uL APTT (22.0-30.0) sec ABG pH (7.35-7.45) ABG pCO2 (35-45) mmHg ABG pO2 (83-108) mmHg ABG HCO3 (21-25) mmol/L ABG Total CO2 (19-24) mmol/L ABG O2 Saturation (94-97) % Sodium (137-145) mmol/L Carbon Dioxide (22-30) mmol/L BUN (9-20) mg/dL Creatinine (0.66-1.25) mg/dL Glucose (74-99) mg/dL POC Glucose (mg/dL) 125 H 118 H (70-110) mg/dL Calcium (8.4-10.2) mg/dL AST (17-59) U/L Total Protein (6.3-8.2) g/dL Albumin (3.5-5.0) g/dL Crossmatch 05/18/23 05/18/23 05/18/23 Range/Units 04:10 04:15 05:29 WBC (3.8-10.6) k/uL RBC (4.30-5.90) m/uL Hgb (13.0-17.5) gm/dL Hct (39.0-53.0) % Plt Count (150-450) k/uL Neutrophils # (1.3-7.7) k/uL Lymphocytes # (1.0-4.8) k/uL APTT (22.0-30.0) sec ABG pH (7.35-7.45) ABG pCO2 (35-45) mmHg ABG pO2 (83-108) mmHg ABG HCO3 (21-25) mmol/L ABG Total CO2 (19-24) mmol/L ABG O2 Saturation (94-97) % Sodium 135 L (137-145) mmol/L Carbon Dioxide 20 L (22-30) mmol/L BUN 50 H (9-20) mg/dL Creatinine 6.50 H (0.66-1.25) mg/dL Glucose (74-99) mg/dL POC Glucose (mg/dL) 114 H 139 H (70-110) mg/dL Calcium 7.4 L (8.4-10.2) mg/dL AST 255 H (17-59) U/L Total Protein 5.5 L (6.3-8.2) g/dL Albumin 2.8 L (3.5-5.0) g/dL Crossmatch 05/18/23 05/18/23 05/18/23 Range/Units 06:12 06:55 07:37 WBC (3.8-10.6) k/uL RBC (4.30-5.90) m/uL Hgb (13.0-17.5) gm/dL Hct (39.0-53.0) % Plt Count (150-450) k/uL Neutrophils # (1.3-7.7) k/uL Lymphocytes # (1.0-4.8) k/uL APTT (22.0-30.0) sec ABG pH (7.35-7.45) ABG pCO2 34 L (35-45) mmHg ABG pO2 74 L (83-108) mmHg ABG HCO3 20 L (21-25) mmol/L ABG Total CO2 (19-24) mmol/L ABG O2 Saturation (94-97) % Sodium (137-145) mmol/L Carbon Dioxide (22-30) mmol/L BUN (9-20) mg/dL Creatinine (0.66-1.25) mg/dL Glucose (74-99) mg/dL POC Glucose (mg/dL) 123 H 133 H (70-110) mg/dL Calcium (8.4-10.2) mg/dL AST (17-59) U/L Total Protein (6.3-8.2) g/dL Albumin (3.5-5.0) g/dL Crossmatch 05/18/23 05/18/23 Range/Units 08:06 09:08 WBC (3.8-10.6) k/uL RBC (4.30-5.90) m/uL Hgb (13.0-17.5) gm/dL Hct (39.0-53.0) % Plt Count (150-450) k/uL Neutrophils # (1.3-7.7) k/uL Lymphocytes # (1.0-4.8) k/uL APTT (22.0-30.0) sec ABG pH (7.35-7.45) ABG pCO2 (35-45) mmHg ABG pO2 (83-108) mmHg ABG HCO3 (21-25) mmol/L ABG Total CO2 (19-24) mmol/L ABG O2 Saturation (94-97) % Sodium (137-145) mmol/L Carbon Dioxide (22-30) mmol/L BUN (9-20) mg/dL Creatinine (0.66-1.25) mg/dL Glucose (74-99) mg/dL POC Glucose (mg/dL) 119 H 117 H (70-110) mg/dL Calcium (8.4-10.2) mg/dL AST (17-59) U/L Total Protein (6.3-8.2) g/dL Albumin (3.5-5.0) g/dL Crossmatch Microbiology - Last 24 Hours (Table) 05/17/23 08:15 Gram Stain - Preliminary Sputum 05/15/23 20:00 Urine Culture - Final Urine,Catheterized Assessment and Plan Assessment: Coronary artery disease status post off-pump coronary artery bypass grafting 2 with a left internal thoracic artery to the left anterior descending artery, saphenous vein graft from the aorta to the posterior descending artery. Left atrial appendage ligation. Postoperative day #5. Acute kidney injury requiring hemodialysis History of chronic kidney disease, stage IV Febrile illness, cultures pending, currently on vancomycin Ischemic cardiomyopathy with ejection fraction 40-45% History of pulmonary embolism previously on Eliquis Diabetes mellitus Hypertension CVA BPH Hyperlipidemia Previous COVID-19 infection Plan: The patient was seen and evaluated Chest x-ray, ABGs, labs and medications reviewed Will be trying hemodialysis again today Norepinephrine currently on hold Currently on an insulin drip Continue bronchodilators, vancomycin, cefepime Ultrasound of the chest pending Titrate the FiO2 as tolerated We will continue to follow I have personally seen and examined the patient, performed the documentation and the assessment and plan as written. Number of minutes spent on the visit: 10.
[2023-05-18] MEDS ORDERED: CALCIUM GLUCONATE IN NACL 2 GM in SALINE 1 100ML.BAG IVPB ONE (10:00)
[2023-05-18 10:03] LABS: Glucose,Whole Blood 106 mg/dL (70-110)
--- NOTE | 2023-05-18 10:27 | US ---
EXAMINATION TYPE: US chest DATE OF EXAM: 05/18/2023 COMPARISON: NONE CLINICAL INDICATION: Male, 68 years old with history of Pleural effusion; pleural effusion did not ma rk Doctor in room said no they wouldn't do it pocket to small. TECHNIQUE: Targeted ultrasound of the posterior lower right hemithorax EXAM MEASUREMENTS: Right Pleural Effusion pocket size: 4.8 cm Right skin surface to fluid distance: 3.6 cm Right side not marked for possible thoracentesis outside the dept. Pulmonologists are able to review the images in the patient?s EMR. IMPRESSIONS: Right-sided pleural effusion as noted.
--- NOTE | 2023-05-18 10:46 | P.PN ---
Subjective Patient is seen in follow-up for acute kidney injury on chronic kidney disease. Currently seeing while undergoing hemodialysis. Remains oliguric. Off dopamine. On Levophed. Vital signs are stable. General: Resting in bed. Lethargic. HEENT: On nasal cannula. LUNGS: No audible rhonchi or wheezes. HEART: Regular rate and rhythm. ABDOMEN: No distention. Obese. EXTREMITITES: 1+ edema. Objective - Vital Signs Vital signs: Vital Signs Temp 98.7 F 05/18/23 06:15 Pulse 74 05/18/23 07:56 Resp 19 05/18/23 07:00 BP 98/44 05/18/23 07:00 Pulse Ox 97 05/18/23 07:44 FiO2 50 05/13/23 15:13 Intake & Output 05/17/23 05/18/23 05/18/23 18:59 06:59 18:59 Intake Total 2147.561 1181.389 147.434 Output Total 486 90 Balance 5023.374 3987.389 147.434 Weight 115.2 kg Intake: IV 835.5 564.9 116 Albumin Human 5% 250 ml 250 In Empty Bag 1 bag @ 250 mls/hr IVPB ONCE ONE Rx#: [id number] Dextrose 5% in Water 1, 300 000 ml @ 75 mls/hr IV . [id number] JESSICA with Sodium Bicarb (1 Meq/ml) 150 ml Rx#:[id number] Dextrose/Water 1 250ml. 43.5 2.9 bag @ 3 MCG/KG/MIN 5.828 mls/hr IV .Q24H JESSICA with DOPamine DRIP 800 mg Rx#: [id number] Furosemide 100 mg In 80 Sodium Chloride 0.9% 90 ml @ 20 MG/HR 20 mls/hr IV .Q5H JESSICA Rx#:[id number] Potassium Chloride 20 meq 100 100 In Water For Injection 1 100ml.bag @ 50 mls/hr IVPB ONCE STA Rx#: [id number] Sodium Chloride 0.9% 500 240 240 10 ml 500 ml @ 20 mls/hr IV .Q24H JESSICA Rx#:[id number] pressure bags 72 72 6 Intake, IV Titration 262.061 60.489 31.434 Amount Furosemide 200 mg In 192 Sodium Chloride 0.9% 180 ml @ 20 MG/HR 20 mls/hr IV .Q10H JESSICA Rx#: [id number] Insulin Regular 100 unit 70.061 47.276 13.240 In Sodium Chloride 0.9% 100 ml @ Per Protocol IV .Q0M JESSICA Rx#:[id number] Norepinephrine 4 mg In 13.213 18.194 Sodium Chloride 0.9% 250 ml @ 0.03 MCG/KG/MIN 12. 996 mls/hr IV .[id number] JESSICA Rx#:[id number] Oral 240 Blood Product 310 556 Rc As-1 Unit 310 [id number] Rc Pheresis Irrad As 3 278 Unit [id number] Hemodialysis 500 Output: Chest Tube Drainage 40 50 Pleural Catheter Left 40 50 Urine 31 40 Hemodialysis 415 Other: Voiding Method Indwelling Catheter Indwelling Catheter # Bowel Movements 1 ABP, PAP, CO, CI - Last Documented Arterial Blood Pressure 93/41 Pulmonary Artery Pressure 29/9 Cardiac Output 4.5 Cardiac Index 2.2 - Labs CBC & Chem 7: 05/18/23 04:10 05/18/23 04:10 Labs: Abnormal Lab Results - Last 24 Hours (Table) 05/17/23 05/17/23 05/17/23 Range/Units 11:04 11:57 12:06 WBC 14.4 H (3.8-10.6) k/uL RBC 2.46 L (4.30-5.90) m/uL Hgb 8.1 L (13.0-17.5) gm/dL Hct 22.9 L (39.0-53.0) % Plt Count (150-450) k/uL Neutrophils # 12.7 H (1.3-7.7) k/uL Lymphocytes # 0.6 L (1.0-4.8) k/uL APTT (22.0-30.0) sec ABG pH (7.35-7.45) ABG pCO2 (35-45) mmHg ABG pO2 (83-108) mmHg ABG HCO3 (21-25) mmol/L ABG Total CO2 (19-24) mmol/L ABG O2 Saturation (94-97) % Sodium (137-145) mmol/L Carbon Dioxide (22-30) mmol/L BUN (9-20) mg/dL Creatinine (0.66-1.25) mg/dL Glucose (74-99) mg/dL POC Glucose (mg/dL) 241 H 191 H (70-110) mg/dL Calcium (8.4-10.2) mg/dL AST (17-59) U/L Total Protein (6.3-8.2) g/dL Albumin (3.5-5.0) g/dL Crossmatch 05/17/23 05/17/23 05/17/23 Range/Units 12:06 12:06 12:06 WBC (3.8-10.6) k/uL RBC (4.30-5.90) m/uL Hgb (13.0-17.5) gm/dL Hct (39.0-53.0) % Plt Count (150-450) k/uL Neutrophils # (1.3-7.7) k/uL Lymphocytes # (1.0-4.8) k/uL APTT 44.5 H (22.0-30.0) sec ABG pH (7.35-7.45) ABG pCO2 (35-45) mmHg ABG pO2 (83-108) mmHg ABG HCO3 (21-25) mmol/L ABG Total CO2 (19-24) mmol/L ABG O2 Saturation (94-97) % Sodium 133 L (137-145) mmol/L Carbon Dioxide (22-30) mmol/L BUN 38 H (9-20) mg/dL Creatinine 4.09 H (0.66-1.25) mg/dL Glucose 166 H (74-99) mg/dL POC Glucose (mg/dL) (70-110) mg/dL Calcium 7.8 L (8.4-10.2) mg/dL AST 420 H (17-59) U/L Total Protein 5.9 L (6.3-8.2) g/dL Albumin 2.9 L (3.5-5.0) g/dL Crossmatch See Detail 05/17/23 05/17/23 05/17/23 Range/Units 12:09 13:09 14:39 WBC (3.8-10.6) k/uL RBC (4.30-5.90) m/uL Hgb (13.0-17.5) gm/dL Hct (39.0-53.0) % Plt Count (150-450) k/uL Neutrophils # (1.3-7.7) k/uL Lymphocytes # (1.0-4.8) k/uL APTT (22.0-30.0) sec ABG pH 7.47 H (7.35-7.45) ABG pCO2 34 L (35-45) mmHg ABG pO2 60 L (83-108) mmHg ABG HCO3 (21-25) mmol/L ABG Total CO2 26 H (19-24) mmol/L ABG O2 Saturation 92.6 L (94-97) % Sodium (137-145) mmol/L Carbon Dioxide (22-30) mmol/L BUN (9-20) mg/dL Creatinine (0.66-1.25) mg/dL Glucose (74-99) mg/dL POC Glucose (mg/dL) 174 H 143 H (70-110) mg/dL Calcium (8.4-10.2) mg/dL AST (17-59) U/L Total Protein (6.3-8.2) g/dL Albumin (3.5-5.0) g/dL Crossmatch 05/17/23 05/17/23 05/17/23 Range/Units 16:09 17:07 18:11 WBC (3.8-10.6) k/uL RBC (4.30-5.90) m/uL Hgb (13.0-17.5) gm/dL Hct (39.0-53.0) % Plt Count (150-450) k/uL Neutrophils # (1.3-7.7) k/uL Lymphocytes # (1.0-4.8) k/uL APTT (22.0-30.0) sec ABG pH (7.35-7.45) ABG pCO2 (35-45) mmHg ABG pO2 (83-108) mmHg ABG HCO3 (21-25) mmol/L ABG Total CO2 (19-24) mmol/L ABG O2 Saturation (94-97) % Sodium (137-145) mmol/L Carbon Dioxide (22-30) mmol/L BUN (9-20) mg/dL Creatinine (0.66-1.25) mg/dL Glucose (74-99) mg/dL POC Glucose (mg/dL) 133 H 122 H 114 H (70-110) mg/dL Calcium (8.4-10.2) mg/dL AST (17-59) U/L Total Protein (6.3-8.2) g/dL Albumin (3.5-5.0) g/dL Crossmatch 05/17/23 05/17/23 05/17/23 Range/Units 19:28 20:15 21:19 WBC (3.8-10.6) k/uL RBC (4.30-5.90) m/uL Hgb (13.0-17.5) gm/dL Hct (39.0-53.0) % Plt Count (150-450) k/uL Neutrophils # (1.3-7.7) k/uL Lymphocytes # (1.0-4.8) k/uL APTT (22.0-30.0) sec ABG pH (7.35-7.45) ABG pCO2 (35-45) mmHg ABG pO2 (83-108) mmHg ABG HCO3 (21-25) mmol/L ABG Total CO2 (19-24) mmol/L ABG O2 Saturation (94-97) % Sodium (137-145) mmol/L Carbon Dioxide (22-30) mmol/L BUN (9-20) mg/dL Creatinine (0.66-1.25) mg/dL Glucose (74-99) mg/dL POC Glucose (mg/dL) 132 H 133 H 135 H (70-110) mg/dL Calcium (8.4-10.2) mg/dL AST (17-59) U/L Total Protein (6.3-8.2) g/dL Albumin (3.5-5.0) g/dL Crossmatch 05/17/23 05/17/23 05/18/23 Range/Units 22:08 23:09 00:13 WBC (3.8-10.6) k/uL RBC (4.30-5.90) m/uL Hgb (13.0-17.5) gm/dL Hct (39.0-53.0) % Plt Count (150-450) k/uL Neutrophils # (1.3-7.7) k/uL Lymphocytes # (1.0-4.8) k/uL APTT (22.0-30.0) sec ABG pH (7.35-7.45) ABG pCO2 (35-45) mmHg ABG pO2 (83-108) mmHg ABG HCO3 (21-25) mmol/L ABG Total CO2 (19-24) mmol/L ABG O2 Saturation (94-97) % Sodium (137-145) mmol/L Carbon Dioxide (22-30) mmol/L BUN (9-20) mg/dL Creatinine (0.66-1.25) mg/dL Glucose (74-99) mg/dL POC Glucose (mg/dL) 132 H 120 H 113 H (70-110) mg/dL Calcium (8.4-10.2) mg/dL AST (17-59) U/L Total Protein (6.3-8.2) g/dL Albumin (3.5-5.0) g/dL Crossmatch 05/18/23 05/18/23 05/18/23 Range/Units 01:14 01:48 02:09 WBC (3.8-10.6) k/uL RBC (4.30-5.90) m/uL Hgb (13.0-17.5) gm/dL Hct (39.0-53.0) % Plt Count (150-450) k/uL Neutrophils # (1.3-7.7) k/uL Lymphocytes # (1.0-4.8) k/uL APTT (22.0-30.0) sec ABG pH (7.35-7.45) ABG pCO2 (35-45) mmHg ABG pO2 (83-108) mmHg ABG HCO3 (21-25) mmol/L ABG Total CO2 (19-24) mmol/L ABG O2 Saturation (94-97) % Sodium (137-145) mmol/L Carbon Dioxide (22-30) mmol/L BUN (9-20) mg/dL Creatinine (0.66-1.25) mg/dL Glucose (74-99) mg/dL POC Glucose (mg/dL) 125 H 128 H 125 H (70-110) mg/dL Calcium (8.4-10.2) mg/dL AST (17-59) U/L Total Protein (6.3-8.2) g/dL Albumin (3.5-5.0) g/dL Crossmatch 05/18/23 05/18/2305/18/23 Range/Units 02:58 04:10 04:10 WBC (3.8-10.6) k/uL RBC 2.35 L (4.30-5.90) m/uL Hgb 7.7 L (13.0-17.5) gm/dL Hct 22.2 L (39.0-53.0) % Plt Count 130 L (150-450) k/uL Neutrophils # (1.3-7.7) k/uL Lymphocytes # (1.0-4.8) k/uL APTT (22.0-30.0) sec ABG pH (7.35-7.45) ABG pCO2 (35-45) mmHg ABG pO2 (83-108) mmHg ABG HCO3 (21-25) mmol/L ABG Total CO2 (19-24) mmol/L ABG O2 Saturation (94-97) % Sodium 135 L (137-145) mmol/L Carbon Dioxide 20 L (22-30) mmol/L BUN 50 H (9-20) mg/dL Creatinine 6.50 H (0.66-1.25) mg/dL Glucose (74-99) mg/dL POC Glucose (mg/dL) 118 H (70-110) mg/dL Calcium 7.4 L (8.4-10.2) mg/dL AST 255 H (17-59) U/L Total Protein 5.5 L (6.3-8.2) g/dL Albumin 2.8 L (3.5-5.0) g/dL Crossmatch 05/18/23 05/18/23 05/18/23 Range/Units 04:15 05:29 06:12 WBC (3.8-10.6) k/uL RBC (4.30-5.90) m/uL Hgb (13.0-17.5) gm/dL Hct (39.0-53.0) % Plt Count (150-450) k/uL Neutrophils # (1.3-7.7) k/uL Lymphocytes # (1.0-4.8) k/uL APTT (22.0-30.0) sec ABG pH (7.35-7.45) ABG pCO2 (35-45) mmHg ABG pO2 (83-108) mmHg ABG HCO3 (21-25) mmol/L ABG Total CO2 (19-24) mmol/L ABG O2 Saturation (94-97) % Sodium (137-145) mmol/L Carbon Dioxide (22-30) mmol/L BUN (9-20) mg/dL Creatinine (0.66-1.25) mg/dL Glucose (74-99) mg/dL POC Glucose (mg/dL) 114 H 139 H 123 H (70-110) mg/dL Calcium (8.4-10.2) mg/dL AST (17-59) U/L Total Protein (6.3-8.2) g/dL Albumin (3.5-5.0) g/dL Crossmatch 05/18/23 05/18/23 05/18/23 Range/Units 06:55 07:37 08:06 WBC (3.8-10.6) k/uL RBC (4.30-5.90) m/uL Hgb (13.0-17.5) gm/dL Hct (39.0-53.0) % Plt Count (150-450) k/uL Neutrophils # (1.3-7.7) k/uL Lymphocytes # (1.0-4.8) k/uL APTT (22.0-30.0) sec ABG pH (7.35-7.45) ABG pCO2 34 L (35-45) mmHg ABG pO2 74 L (83-108) mmHg ABG HCO3 20 L (21-25) mmol/L ABG Total CO2 (19-24) mmol/L ABG O2 Saturation (94-97) % Sodium (137-145) mmol/L Carbon Dioxide (22-30) mmol/L BUN (9-20) mg/dL Creatinine (0.66-1.25) mg/dL Glucose (74-99) mg/dL POC Glucose (mg/dL) 133 H 119 H (70-110) mg/dL Calcium (8.4-10.2) mg/dL AST (17-59) U/L Total Protein (6.3-8.2) g/dL Albumin (3.5-5.0) g/dL Crossmatch 05/18/23 Range/Units 09:08 WBC (3.8-10.6) k/uL RBC (4.30-5.90) m/uL Hgb (13.0-17.5) gm/dL Hct (39.0-53.0) % Plt Count (150-450) k/uL Neutrophils # (1.3-7.7) k/uL Lymphocytes # (1.0-4.8) k/uL APTT (22.0-30.0) sec ABG pH (7.35-7.45) ABG pCO2 (35-45) mmHg ABG pO2 (83-108) mmHg ABG HCO3 (21-25) mmol/L ABG Total CO2 (19-24) mmol/L ABG O2 Saturation (94-97) % Sodium (137-145) mmol/L Carbon Dioxide (22-30) mmol/L BUN (9-20) mg/dL Creatinine (0.66-1.25) mg/dL Glucose (74-99) mg/dL POC Glucose (mg/dL) 117 H (70-110) mg/dL Calcium (8.4-10.2) mg/dL AST (17-59) U/L Total Protein (6.3-8.2) g/dL Albumin (3.5-5.0) g/dL Crossmatch Microbiology - Last 24 Hours (Table) 05/17/23 08:15 Gram Stain - Preliminary Sputum 05/15/23 20:00 Urine Culture - Final Urine,Catheterized Assessment and Plan Plan: Assessment: 1. Acute kidney injury secondary to hemodynamic ATN. Creatinine 7.3 dated 05/17/2023. Oliguric. Started on hemodialysis 05/17/2023. 2. A. fib with RVR maintained on amiodarone and Lopressor. 3. 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 4. Metabolic acidosis secondary to acute kidney injury s/p bicarbonate drip. Expect improvement postdialysis. 5. Cardiomyopathy. Ejection fraction of 40-45%. 6. Chronic kidney disease stage IV with baseline creatinine near 2. Suspect underlying diabetic kidney disease. 7. Diabetes mellitus. Plan: Currently seen while undergoing hemodialysis. Another treatment tomorrow. Phosphorus 3.3 dated 05/17/2023. Follow-up renal ultrasound. Continue to monitor renal function and urine output. Monitor for renal recovery. Add po bicarb.
[2023-05-18 11:05] LABS: Glucose,Whole Blood 115 mg/dL (70-110)
[2023-05-18] MEDS: ACETYLCYSTEINE 800 MG/4 ML VIAL INHALATION SCH ×3 (11:43→20:18)
[2023-05-18 11:58] LABS: Glucose,Whole Blood 109 mg/dL (70-110)
[2023-05-18] MEDS: CLOPIDOGREL 75 MG TAB PO SCH (12:32)
[2023-05-18] MEDS: SODIUM BICARBONATE TAB 650 MG TAB PO SCH ×2 (12:34→20:13)
[2023-05-18] MEDS: AMIODARONE 200 MG TAB PO SCH ×2 (12:34→20:13)
[2023-05-18] MEDS: DEXTROSE/WATER 1 250ML.BAG with DOPamine DRIP 800 MG IV SCH (12:36)
[2023-05-18 13:00] LABS: Glucose,Whole Blood 131 mg/dL (70-110)
[2023-05-18] MEDS: CEFEPIME 0.5 GM in SODIUM CHLORIDE 0.9% 50 ML IVPB SCH (13:55)
[2023-05-18 14:08] LABS: Glucose,Whole Blood 154 mg/dL (70-110)
[2023-05-18] MEDS: METOPROLOL TARTRATE 12.5 MG TAB PO SCH ×2 (14:11→20:13)
--- NOTE | 2023-05-18 14:16 | US ---
EXAMINATION TYPE: US kidneys/renal and bladder DATE OF EXAM: 05/18/2023 COMPARISON: NONE CLINICAL INDICATION: Male, 68 years old with history of rachael; EXAM MEASUREMENTS: Right Kidney: 11.2 x 6.6 x 4.6 cm Left Kidney: 14.7 x 7.9 x 5.9 cm Technically difficult study performed portably on an ICU patient who is unable to cooperate for exams . Right Kidney: No hydronephrosis or masses seen Left Kidney: No hydronephrosis or masses seen Bladder: not seen, patient has catheter. There is no evidence for hydronephrosis at this point in time. No nephrolithiasis is seen. No lilia s are identified. IMPRESSION: Limited study although no distinct abnormality seen.
--- NOTE | 2023-05-18 15:16 | PN ---
PROGRESS NOTE SUBJECTIVE: Mr. Birmingham is status post aortocoronary bypass surgery. He had an echo yesterday which revealed moderately impaired LV function with anteroapical hypokinesia. He had hemodialysis yesterday and is having it today. He went into atrial fib, but back in sinus. We will reduce the dose of amiodarone from 400 b.i.d. to 200 b.i.d. He is hemodynamically more stable. OBJECTIVE: HEART: S1 and S2 are normal. A short systolic murmur noted. LUNGS: Diminished air entry. ABDOMEN: Soft. Rest of physical exam unchanged. ASSESSMENT AND PLAN: We will continue the dialysis and support him hemodynamically. The patient is making modest progress. Overall prognosis remains guarded. MMODL / IJN: [id number] /
[2023-05-18] MEDS ORDERED: FUROSEMIDE 10 MG/ML 10 ML VIAL IV STA (15:56)
[2023-05-18 16:04] LABS: Appearance,Urine Turbid (Clear); Bilirubin,Urine Negative (Negative); Blood,Urine Large (Negative); Color,Urine Red; Glucose,Urine (UA) 1+ (Negative); Ketones,Urine Negative (Negative); Leukocyte Esterase,Urine Large (Negative); Nitrite,Urine Negative (Negative); PH, Urine 7.5 (5.0-8.0); Protein,Urine 3+ (Negative); Specific Gravity,Urine 1.017 (1.001-1.035); Urobilinogen,Urine <2.0 mg/dL (<2.0); WBC,Urine 50 /hpf (0-5)
[2023-05-18 16:05] LABS: RBC,Urine >182 /hpf (0-5); Squamous Epithelial Cell,Urine 10 /hpf (0-4)
--- NOTE | 2023-05-18 16:05 | P.CNNES ---
History of Present Illness Consult date: 05/18/23 Requesting physician: Med Manjarrez Reason for Consult: Post op CABG, obtunded History of Present Illness: Patient is a 68-year-old right-handed male with history of previous CVA, came to the hospital on 05/13/2033 for elective coronary artery bypass graft surgery that was performed 05/13/2023. Patient was doing well postoperatively. Patient has developed acute on chronic renal failure. He underwent first session of hemodialysis yesterday on 05/17/2023 at around noon. Patient has completed 2 hours of hemodialysis and about 30 minutes was left in completion of hemodialysis, when patient at around 12:20 PM developed mental status change. He was unresponsive. No seizure-like activity was witnessed. Patient was very confused, did not know his or his daughter and grandson. Patient became hypotensive with blood pressure running around 80/40, and he was very obtunded, confused. Patient was started on Levophed. Patient also developed atrial fibrillation with rapid ventricular rate. The A. fib continued from 10:40 AM until around 1 PM. Patient's blood test shows normal WBC, hemoglobin 7.7, platelets are 130. ABG with pH of 7.39, pCO2 34, pO2 74 and saturation 95.7%. Sodium 135 potassium 3.5, BUN 50, creatinine 6.50. AST 255, ALT 19. TFTs normal. UA shows moderate amount of leukocyte Estrace, 131 WBC, none bacteria. Urine cultures negative. Since yesterday patient has much improved, is more awake, although still not focusing as well, not answering some questions at times. Still appears encephalopathic. Patient currently on Levophed 0.02 mcg/kg/hr. 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 Patient has improved, but has residual some memory disturbance, issues with reading, letters get mixed up and cannot visualize the words. Review of Systems Constitutional: Denies chills, Denies fever Eyes: right loss of peripheral vision (From previous stroke), denies blurred vision, denies diplopia, denies pain Ears: deny: decreased hearing, earache Ears, nose, mouth and throat: Denies headache, Denies sore throat Cardiovascular: Denies chest pain, Denies shortness of breath Respiratory: Reports cough, Reports excessive sputum, Denies hemoptysis Gastrointestinal: Denies abdominal pain, Denies diarrhea, Denies nausea, Denies vomiting Genitourinary: Reports hematuria, Denies flank pain Musculoskeletal: Denies low back pain, Denies myalgias, Denies neck pain Integumentary: Denies pruritus, Denies rash Neurological: Reports as per HPI Psychiatric: Denies anxiety, Denies depression Endocrine: Denies fatigue, Denies weight change Hematologic/Lymphatic: Reports easy bleeding, Reports easy bruising Past Medical History Past Medical History: Diabetes Mellitus, Hypertension, Prostate Disorder Additional Past Medical History / Comment(s): stroke April 2022-affected memory, reading can be difficult, Covid 2021, slight decreased kidney function, enlarged prostate Last Myocardial Infarction Date:: unknown History of Any Multi-Drug Resistant Organisms: None Reported Past Surgical History: Heart Catheterization, Prostate Surgery Additional Past Surgical History / Comment(s): TURP, recent heart cath. Past Anesthesia/Blood Transfusion Reactions: No Reported Reaction Past Alcohol Use History: None Reported - Past Family History Mother Family Medical History: No Reported History Father Family Medical History: Myocardial Infarction ([place]) Additional Family Medical History / Comment(s): massive [place] @53 Medications and Allergies Home Medications Medication Instructions Recorded Confirmed Type Furosemide [Lasix] 20 mg PO DAILY 05/20/22 05/13/23 History Rosuvastatin [Crestor] 40 mg PO DAILY 05/20/22 05/13/23 History Sacubitril/Valsartan [Entresto 24 1 tab PO BID-W/MEALS 05/20/22 05/13/23 History mg-26 mg Tablet] Spironolactone [Aldactone] 25 mg PO PC-LUNCH 05/20/22 05/13/23 History carvediloL [Coreg] 6.25 mg PO BID-W/MEALS 05/20/22 05/13/23 History metFORMIN HCL 1,000 mg PO BID-W/MEALS 05/20/22 05/13/23 History Apixaban [Eliquis] 5 mg PO BID #0 05/25/22 05/13/23 Rx Aspirin 81 mg PO DAILY 30 Days #30 tab 05/25/22 05/13/23 Rx Liraglutide [Victoza 2-Javon] 1.2 mg SQ DAILY 04/13/23 05/13/23 History Allergies Allergy/AdvReac Type Severity Reaction Status Date / Time atorvastatin [From Lipitor] Allergy Rash/Hives Verified 05/13/23 05:54 Physical Examination - Vital Signs Vital Signs: Vital Signs Temp Pulse Pulse Resp BP BP Pulse Ox 05/18/23 07:56 74 05/18/23 07:44 97 05/18/23 07:43 70 05/18/23 07:00 66 19 98/44 94 L 05/18/23 06:45 65 21 107/53 95 05/18/23 06:30 67 18 104/46 93 L 05/18/23 06:15 98.7 F 65 20 107/53 93 L 05/18/23 06:00 98.3 F 70 25 H 112/54 89 L 05/18/23 05:45 68 22 112/54 93 L 05/18/23 05:30 72 12 82/43 92 L 05/18/23 05:15 66 19 79/45 98 05/18/23 05:09 98.7 F 69 12 79/45 98 05/18/23 05:00 70 20 92/47 99 05/18/23 04:49 99.0 F 68 23 96/51 96 05/18/23 04:47 99.0 F 72 20 86/40 96 05/18/23 04:45 70 19 90/44 98 05/18/23 04:30 67 20 88/43 96 05/18/23 04:15 83 19 85/44 97 05/18/23 04:00 99.0 F 72 20 78/42 97 05/18/23 03:45 80 20 80/48 95 05/18/23 03:30 75 20 86/40 94 L 05/18/23 03:15 85 21 111/46 94 L 05/18/23 03:00 100.3 F H 85 21 104/49 92 L 05/18/23 02:45 87 28 H 108/47 92 L 05/18/23 02:30 90 16 94/42 92 L 05/18/23 02:15 74 18 82/41 92 L 05/18/23 02:00 73 20 91/44 94 L 05/18/23 01:45 74 20 116/52 95 05/18/23 01:30 75 21 110/51 94 L 05/18/23 01:15 101.3 F H 78 27 H 105/52 95 05/18/23 01:00 75 15 91/46 95 05/18/23 00:45 75 22 109/53 96 05/18/23 00:30 74 19 114/53 95 05/18/23 00:15 77 13 98/59 95 05/18/23 00:04 80 18 98/59 94 L 05/18/23 00:00 100.3 F H 77 22 101/48 94 L 05/17/23 23:45 76 22 109/54 96 05/17/23 23:30 80 23 95/56 94 L 05/17/23 23:15 76 81/51 95 05/17/23 23:00 77 21 106/53 95 05/17/23 22:45 89 15 100/49 96 05/17/23 22:30 73 18 97/62 97 05/17/23 22:15 78 21 99/51 96 05/17/23 22:00 78 17 101/62 97 05/17/23 21:45 81 24 112/74 97 05/17/23 21:30 89 14 95/51 95 05/17/23 21:15 73 105/63 97 05/17/23 21:00 80 19 122/54 96 05/17/23 20:45 79 20 122/54 96 05/17/23 20:32 93 05/17/23 20:30 21 129/60 100 05/17/23 20:18 87 05/17/23 20:15 85 21 119/83 96 05/17/23 20:00 98.9 F 90 20 97 05/17/23 19:45 91 23 114/52 97 05/17/23 19:30 80 21 120/35 98 05/17/23 19:15 84 28 H 108/33 98 05/17/23 19:00 80 11 L 123/32 97 05/17/23 18:45 89 19 115/53 96 05/17/23 18:30 83 13 126/39 96 05/17/23 18:15 80 17 110/43 96 05/17/23 18:00 82 16 130/82 94 L 05/17/23 17:45 89 20 119/58 94 L 05/17/23 17:30 87 21 126/58 94 L 05/17/23 17:15 88 23 106/42 94 L 05/17/23 17:00 80 20 109/61 94 L 05/17/23 16:45 91 22 122/67 94 L 05/17/23 16:30 91 16 124/60 93 L 05/17/23 16:15 88 18 130/57 96 05/17/23 16:00 99.1 F 89 26 H 123/56 05/17/23 15:45 90 20 119/60 92 L 05/17/23 15:44 90 23 05/17/23 15:33 90 23 05/17/23 15:30 111 H 20 109/67 94 L 05/17/23 15:15 114 H 22 91/60 94 L 05/17/23 15:00 107 H 12 112/49 95 05/17/23 14:30 116 H 21 100/62 94 L 05/17/23 14:06 99.1 F 92 16 120/57 05/17/23 14:00 121 H 90/63 05/17/23 13:46 98.7 F 116 H 16 90/63 96 05/17/23 13:30 110 H 18 110/74 91 L 05/17/23 13:00 123 H 22 88/55 92 L 05/17/23 12:34 12 05/17/23 12:30 131 H 18 101/62 90 L 05/17/23 12:26 97.5 F L 129 H 18 99/79 05/17/23 12:00 98.5 F 135 H 17 87/58 93 L 05/17/23 11:30 135 H 19 121/56 91 L 05/17/23 11:00 152 H 17 112/96 92 L Intake and Output 05/17/23 05/18/23 05/18/23 22:59 06:59 14:59 Intake Total 033.859 7754.356 147.434 Output Total 46 66 Balance 631.964 993.356 147.434 Intake: IV 331.2 458 116 Albumin Human 5% 250 ml 250 In Empty Bag 1 bag @ 250 mls/hr IVPB ONCE ONE Rx#: [id number] Dextrose/Water 1 250ml. 23.2 bag @ 3 MCG/KG/MIN 5.828 mls/hr IV .Q24H JESSICA with DOPamine DRIP 800 mg Rx#: [id number] Potassium Chloride 20 meq 100 100 In Water For Injection 1 100ml.bag @ 50 mls/hr IVPB ONCE STA Rx#: [id number] Sodium Chloride 0.9% 500 160 160 10 ml 500 ml @ 20 mls/hr IV .Q24H [facility] Rx#:[id number] pressure bags 48 48 6 Intake, IV Titration 36.764 45.356 31.434 Amount Insulin Regular 100 unit 36.764 32.143 13.240 In Sodium Chloride 0.9% 100 ml @ Per Protocol IV .Q0M [facility] Rx#:[id number] Norepinephrine 4 mg In 13.213 18.194 Sodium Chloride 0.9% 250 ml @ 0.03 MCG/KG/MIN 12. 996 mls/hr IV .[id number] [facility] Rx#:[id number] Blood Product 310 556 Rc As-1 Unit 310 [id number] Rc Pheresis Irrad As 3 278 Unit [id number] Output: Chest Tube Drainage 20 40 Pleural Catheter Left 20 40 Urine 26 26 Other: Voiding Method Indwelling Catheter Indwelling Catheter # Bowel Movements 1 Weight 115.2 kg ABP, PAP, CO, CI - Last 8 Hours Arterial Blood Pressure 93/41 Arterial Blood Pressure 117/41 Arterial Blood Pressure 115/44 Arterial Blood Pressure 118/42 Arterial Blood Pressure 169/92 Arterial Blood Pressure 123/40 Arterial Blood Pressure 112/44 Arterial Blood Pressure 87/36 Arterial Blood Pressure 97/38 Arterial Blood Pressure 90/37 Arterial Blood Pressure 88/36 Arterial Blood Pressure 37/37 Arterial Blood Pressure 83/36 Arterial Blood Pressure 73/32 Arterial Blood Pressure 74/33 Arterial Blood Pressure 77/34 Arterial Blood Pressure 88/39 Arterial Blood Pressure 92/41 Cardiac Output 4.5 Cardiac Index 2.2 Patient is an elderly male, who is laying in the bed, appears to have mild respiratory distress. Patient is postop on recent bypass surgery. Patient is slightly encephalopathic, fluctuating mental status. He is somnolent most of the time, does wake up and becomes alert awake and fully oriented, but then again drifts back to sleep. Patient knows it is [facility] in [facility]. He knows it is the summer season and that it is April 2023. Patient's speech appears fluent, with no obvious dysarthria. He often takes long time to answer questions. Patient's expressive language appears intact. His comprehension is intact. Attention, concentration is significantly impaired, fund of knowledge is limited to assess because of mental status. Cranial nerve examination, right pupil is eccentric, tear shaped to the right. Left pupil is round and reacting. He has right homonymous hemianopia, which mainly involves the peripheral visual field on the right side, and he neglects on double simultaneous stimulation. This visual field is better as compared to the last examination where it was all to the midline. patient has chronic vision loss right eye. His extraocular muscles are intact with no nystagmus. Face is symmetric, tongue protrudes to the midline. Palatal elevation and se nsation normal, hearing and shoulder shrug normal, facial sensation normal. Shoulder shrug normal. On muscle strength testing, there is a slight right-sided pronation, but no drift. The muscle strength is (right/left) deltoid 4+/5-, biceps 5/5, triceps 5/5, stone polisher machine 5/5. In the lower limbs, hip flexion 5-/5-and ankle dorsiflexion 5/5. Deep tendon reflexes are (right/left) biceps 2/1, brachioradialis 1/1, knees 2/2, ankles are absent, and plantars are probable upgoing bilaterally. Sensory to touch is equal, although he neglects right side on double simultaneous stimulation. Patient has significantly impaired attention, with difficulty understanding the task because of impaired concentration. Cerebellar function showed mild dysmetria for [id number] testing bilaterally. Tone and bulk of muscles normal. Gait deferred. On general examination, there is no carotid bruit or murmur, S1-S2 audible. Abdomen is soft nontender. Bowel sounds present. Chest is clear to auscultatio n. Patient has significant peripheral edema. Results - Laboratory Findings CBC and BMP: 05/27/23 07:22 05/27/23 07:22 Abnormal Lab Findings: Abnormal Labs 05/04/23 05/13/23 05/13/23 09:01 06:17 08:33 WBC RBC Hgb Hct Plt Count Neutrophils # Lymphocytes # Monocytes # Eosinophils # APTT ABG pH ABG pCO2 ABG pO2 147 H ABG HCO3 ABG Total CO2 ABG O2 Saturation 98.6 H ABG Glucose 188 H ABG Lactic Acid Hemoglobin 12.9 L Sodium Chloride Carbon Dioxide BUN Creatinine Glucose POC Glucose (mg/dL) 168 H Calcium Ionized Calcium Sagrario Magnesium Total Bilirubin AST Alkaline Phosphatase Total Protein Albumin Procalcitonin Arterial Blood Glucose 188 H Urine Protein Urine Ketones Urine Blood Ur Leukocyte Esterase Urine RBC Urine WBC Amorphous Sediment Crossmatch See Detail 05/13/23 05/13/23 05/13/23 09:48 10:16 10:52 WBC RBC Hgb Hct Plt Count Neutrophils # Lymphocytes # Monocytes # Eosinophils # APTT ABG pH 7.32 L 7.34 L 7.34 L ABG pCO2 ABG pO2 141 H 170 H 172 H ABG HCO3 ABG Total CO2 ABG O2 Saturation 98.7 H 98.8 H 98.9 H ABG Glucose 163 H 150 H 126 H ABG Lactic Acid 2.1 H Hemoglobin 12.7 L 12.7 L 12.3 L Sodium Chloride Carbon Dioxide BUN Creatinine Glucose POC Glucose (mg/dL) Calcium Ionized Calcium Sagrario Magnesium Total Bilirubin AST Alkaline Phosphatase Total Protein Albumin Procalcitonin Arterial Blood Glucose 163 H 150 H 126 H Urine Protein Urine Ketones Urine Blood Ur Leukocyte Esterase Urine RBC Urine WBC Amorphous Sediment Crossmatch 05/13/23 05/13/23 05/13/23 11:29 12:19 12:20 WBC 24.4 H RBC 3.85 L Hgb 11.6 L Hct 36.6 L Plt Count Neutrophils # 18.9 H Lymphocytes # Monocytes # 1.5 H Eosinophils # 0.8 H APTT ABG pH ABG pCO2 ABG pO2 133 H ABG HCO3 ABG Total CO2 ABG O2 Saturation 98.7 H ABG Glucose 105 H ABG Lactic Acid 2.7 H* Hemoglobin 12.0 L Sodium Chloride Carbon Dioxide BUN Creatinine Glucose POC Glucose (mg/dL) 129 H Calcium Ionized Calcium Sagrario Magnesium Total Bilirubin AST Alkaline Phosphatase Total Protein Albumin Procalcitonin Arterial Blood Glucose 105 H Urine Protein Urine Ketones Urine Blood Ur Leukocyte Esterase Urine RBC Urine WBC Amorphous Sediment Crossmatch 05/13/23 05/13/23 05/13/23 12:20 12:48 14:17 WBC RBC Hgb Hct Plt Count Neutrophils # Lymphocytes # Monocytes # Eosinophils # APTT ABG pH 7.31 L ABG pCO2 ABG pO2 387 H ABG HCO3 ABG Total CO2 ABG O2 Saturation 99.6 H ABG Glucose ABG Lactic Acid Hemoglobin Sodium Chloride Carbon Dioxide 20 L BUN 39 H Creatinine 2.33 H Glucose 154 H POC Glucose (mg/dL) 223 H Calcium 7.9 L Ionized Calcium Sagrario Magnesium 2.4 H Total Bilirubin AST Alkaline Phosphatase Total Protein 5.5 L Albumin 3.0 L Procalcitonin Arterial Blood Glucose Urine Protein Urine Ketones Urine Blood Ur Leukocyte Esterase Urine RBC Urine WBC Amorphous Sediment Crossmatch 05/13/23 05/13/23 05/13/23 15:06 15:10 15:42 WBC 13.8 H RBC 3.23 L Hgb 10.2 L Hct 30.7 L Plt Count Neutrophils # 12.4 H Lymphocytes # Monocytes # Eosinophils # APTT ABG pH 7.29 L ABG pCO2 ABG pO2 ABG HCO3 18 L ABG Total CO2 ABG O2 Saturation 97.4 H ABG Glucose ABG Lactic Acid Hemoglobin Sodium Chloride Carbon Dioxide BUN Creatinine Glucose POC Glucose (mg/dL) 257 H Calcium Ionized Calcium Sagrario Magnesium Total Bilirubin AST Alkaline Phosphatase Total Protein Albumin Procalcitonin Arterial Blood Glucose Urine Protein Urine Ketones Urine Blood Ur Leukocyte Esterase Urine RBC Urine WBC Amorphous Sediment Crossmatch 05/13/23 05/13/23 05/13/23 16:05 17:11 18:04 WBC RBC Hgb Hct Plt Count Neutrophils # Lymphocytes # Monocytes # Eosinophils # APTT ABG pH ABG pCO2 ABG pO2 ABG HCO3 ABG Total CO2 ABG O2 Saturation ABG Glucose ABG Lactic Acid Hemoglobin Sodium Chloride Carbon Dioxide BUN Creatinine Glucose POC Glucose (mg/dL) 218 H 195 H 185 H Calcium Ionized Calcium Sagrario Magnesium Total Bilirubin AST Alkaline Phosphatase Total Protein Albumin Procalcitonin Arterial Blood Glucose Urine Protein Urine Ketones Urine Blood Ur Leukocyte Esterase Urine RBC Urine WBC Amorphous Sediment Crossmatch 05/13/23 05/13/23 05/13/23 18:05 19:01 19:57 WBC 16.8 H RBC 3.34 L Hgb 11.4 L Hct 31.3 L Plt Count Neutrophils # 15.0 H Lymphocytes # 0.7 L Monocytes # Eosinophils # APTT ABG pH ABG pCO2 ABG pO2 ABG HCO3 ABG Total CO2 ABG O2 Saturation ABG Glucose ABG Lactic Acid Hemoglobin Sodium Chloride Carbon Dioxide BUN Creatinine Glucose POC Glucose (mg/dL) 163 H 151 H Calcium Ionized Calcium Sagrario Magnesium Total Bilirubin AST Alkaline Phosphatase Total Protein Albumin Procalcitonin Arterial Blood Glucose Urine Protein Urine Ketones Urine Blood Ur Leukocyte Esterase Urine RBC Urine WBC Amorphous Sediment Crossmatch 05/13/23 05/13/23 05/13/23 20:54 21:57 23:01 WBC RBC Hgb Hct Plt Count Neutrophils # Lymphocytes # Monocytes # Eosinophils # APTT ABG pH ABG pCO2 ABG pO2 ABG HCO3 ABG Total CO2 ABG O2 Saturation ABG Glucose ABG Lactic Acid Hemoglobin Sodium Chloride Carbon Dioxide BUN Creatinine Glucose POC Glucose (mg/dL) 146 H 143 H 133 H Calcium Ionized Calcium Sagrario Magnesium Total Bilirubin AST Alkaline Phosphatase Total Protein Albumin Procalcitonin Arterial Blood Glucose Urine Protein Urine Ketones Urine Blood Ur Leukocyte Esterase Urine RBC Urine WBC Amorphous Sediment Crossmatch 05/13/23 05/14/23 05/14/23 23:51 00:56 02:11 WBC RBC Hgb Hct Plt Count Neutrophils # Lymphocytes # Monocytes # Eosinophils # APTT ABG pH ABG pCO2 ABG pO2 ABG HCO3 ABG Total CO2 ABG O2 Saturation ABG Glucose ABG Lactic Acid Hemoglobin Sodium Chloride Carbon Dioxide BUN Creatinine Glucose POC Glucose (mg/dL) 124 H 124 H 124 H Calcium Ionized Calcium Sagrario Magnesium Total Bilirubin AST Alkaline Phosphatase Total Protein Albumin Procalcitonin Arterial Blood Glucose Urine Protein Urine Ketones Urine Blood Ur Leukocyte Esterase Urine RBC Urine WBC Amorphous Sediment Crossmatch 05/14/23 05/14/23 05/14/23 02:57 04:00 04:00 WBC 12.9 H RBC 3.21 L Hgb 10.7 L Hct 29.7 L Plt Count 143 L Neutrophils # 11.1 H Lymphocytes # 0.8 L Monocytes # Eosinophils # APTT ABG pH ABG pCO2 ABG pO2 ABG HCO3 ABG Total CO2 ABG O2 Saturation ABG Glucose ABG Lactic Acid Hemoglobin Sodium Chloride Carbon Dioxide 21 L BUN 43 H Creatinine 2.83 H Glucose 105 H POC Glucose (mg/dL) 122 H Calcium 7.7 L Ionized Calcium Sagrario 4.3 L Magnesium Total Bilirubin AST Alkaline Phosphatase 30 L Total Protein 5.6 L Albumin Procalcitonin Arterial Blood Glucose Urine Protein Urine Ketones Urine Blood Ur Leukocyte Esterase Urine RBC Urine WBC Amorphous Sediment Crossmatch 05/14/23 05/14/23 05/14/23 04:02 04:55 05:55 WBC RBC Hgb Hct Plt Count Neutrophils # Lymphocytes # Monocytes # Eosinophils # APTT ABG pH ABG pCO2 ABG pO2 ABG HCO3 ABG Total CO2 ABG O2 Saturation ABG Glucose ABG Lactic Acid Hemoglobin Sodium Chloride Carbon Dioxide BUN Creatinine Glucose POC Glucose (mg/dL) 116 H 111 H 131 H Calcium Ionized Calcium Sagrario Magnesium Total Bilirubin AST Alkaline Phosphatase Total Protein Albumin Procalcitonin Arterial Blood Glucose Urine Protein Urine Ketones Urine Blood Ur Leukocyte Esterase Urine RBC Urine WBC Amorphous Sediment Crossmatch 05/14/23 05/14/23 05/14/23 06:55 08:05 08:47 WBC RBC Hgb Hct Plt Count Neutrophils # Lymphocytes # Monocytes # Eosinophils # APTT ABG pH ABG pCO2 ABG pO2 ABG HCO3 ABG Total CO2 ABG O2 Saturation ABG Glucose ABG Lactic Acid Hemoglobin Sodium Chloride Carbon Dioxide BUN Creatinine Glucose POC Glucose (mg/dL) 157 H 149 H Calcium Ionized Calcium Asgrario Magnesium Total Bilirubin AST Alkaline Phosphatase Total Protein Albumin Procalcitonin Arterial Blood Glucose Urine Protein 2+ H Urine Ketones Trace H Urine Blood Large H Ur Leukocyte Esterase Moderate H Urine RBC >182 H Urine WBC 131 H Amorphous Sediment Occasional H Crossmatch 05/14/23 05/14/23 05/14/23 09:07 10:21 11:14 WBC RBC Hgb Hct Plt Count Neutrophils # Lymphocytes # Monocytes # Eosinophils # APTT ABG pH ABG pCO2 ABG pO2 ABG HCO3 ABG Total CO2 ABG O2 Saturation ABG Glucose ABG Lactic Acid Hemoglobin Sodium Chloride Carbon Dioxide BUN Creatinine Glucose POC Glucose (mg/dL) 191 H 190 H 172 H Calcium Ionized Calcium Sagrario Magnesium Total Bilirubin AST Alkaline Phosphatase Total Protein Albumin Procalcitonin Arterial Blood Glucose Urine Protein Urine Ketones Urine Blood Ur Leukocyte Esterase Urine RBC Urine WBC Amorphous Sediment Crossmatch 05/14/23 05/14/23 05/14/23 11:56 12:15 13:28 WBC RBC Hgb Hct Plt Count Neutrophils # Lymphocytes # Monocytes # Eosinophils # APTT ABG pH ABG pCO2 ABG pO2 ABG HCO3 ABG Total CO2 ABG O2 Saturation ABG Glucose ABG Lactic Acid Hemoglobin Sodium Chloride Carbon Dioxide BUN Creatinine Glucose POC Glucose (mg/dL) 167 H 251 H 197 H Calcium Ionized Calcium Sagrario Magnesium Total Bilirubin AST Alkaline Phosphatase Total Protein Albumin Procalcitonin Arterial Blood Glucose Urine Protein Urine Ketones Urine Blood Ur Leukocyte Esterase Urine RBC Urine WBC Amorphous Sediment Crossmatch 05/14/23 05/14/23 05/14/23 14:02 15:12 16:17 WBC RBC Hgb Hct Plt Count Neutrophils # Lymphocytes # Monocytes # Eosinophils # APTT ABG pH ABG pCO2 ABG pO2 ABG HCO3 ABG Total CO2 ABG O2 Saturation ABG Glucose ABG Lactic Acid Hemoglobin Sodium Chloride Carbon Dioxide BUN Creatinine Glucose POC Glucose (mg/dL) 181 H 143 H 137 H Calcium Ionized Calcium Sagrario Magnesium Total Bilirubin AST Alkaline Phosphatase Total Protein Albumin Procalcitonin Arterial Blood Glucose Urine Protein Urine Ketones Urine Blood Ur Leukocyte Esterase Urine RBC Urine WBC Amorphous Sediment Crossmatch 05/14/23 05/14/23 05/14/23 17:11 17:53 19:00 WBC RBC Hgb Hct Plt Count Neutrophils # Lymphocytes # Monocytes # Eosinophils # APTT ABG pH ABG pCO2 ABG pO2 ABG HCO3 ABG Total CO2 ABG O2 Saturation ABG Glucose ABG Lactic Acid Hemoglobin Sodium Chloride Carbon Dioxide BUN Creatinine Glucose POC Glucose (mg/dL) 178 H 200 H 189 H Calcium Ionized Calcium Sagrario Magnesium Total Bilirubin AST Alkaline Phosphatase Total Protein Albumin Procalcitonin Arterial Blood Glucose Urine Protein Urine Ketones Urine Blood Ur Leukocyte Esterase Urine RBC Urine WBC Amorphous Sediment Crossmatch 05/14/23 05/14/23 05/14/23 20:09 21:11 22:07 WBC RBC Hgb Hct Plt Count Neutrophils # Lymphocytes # Monocytes # Eosinophils # APTT ABG pH ABG pCO2 ABG pO2 ABG HCO3 ABG Total CO2 ABG O2 Saturation ABG Glucose ABG Lactic Acid Hemoglobin Sodium Chloride Carbon Dioxide BUN Creatinine Glucose POC Glucose (mg/dL) 152 H 143 H 128 H Calcium Ionized Calcium Sagrario Magnesium Total Bilirubin AST Alkaline Phosphatase Total Protein Albumin Procalcitonin Arterial Blood Glucose Urine Protein Urine Ketones Urine Blood Ur Leukocyte Esterase Urine RBC Urine WBC Amorphous Sediment Crossmatch 05/14/23 05/15/23 05/15/23 23:50 01:00 02:05 WBC RBC Hgb Hct Plt Count Neutrophils # Lymphocytes # Monocytes # Eosinophils # APTT ABG pH ABG pCO2 ABG pO2 ABG HCO3 ABG Total CO2 ABG O2 Saturation ABG Glucose ABG Lactic Acid Hemoglobin Sodium Chloride Carbon Dioxide BUN Creatinine Glucose POC Glucose (mg/dL) 144 H 132 H 121 H Calcium Ionized Calcium Sagrario Magnesium Total Bilirubin AST Alkaline Phosphatase Total Protein Albumin Procalcitonin Arterial Blood Glucose Urine Protein Urine Ketones Urine Blood Ur Leukocyte Esterase Urine RBC Urine WBC Amorphous Sediment Crossmatch 05/15/23 05/15/23 05/15/23 02:55 04:05 04:05 WBC 15.3 H RBC 3.09 L Hgb 9.9 L Hct 28.8 L Plt Count 127 L Neutrophils # 13.3 H Lymphocytes # Monocytes # Eosinophils # APTT ABG pH ABG pCO2 ABG pO2 ABG HCO3 ABG Total CO2 ABG O2 Saturation ABG Glucose ABG Lactic Acid Hemoglobin Sodium 134 L Chloride Carbon Dioxide 19 L BUN 48 H Creatinine 4.03 H Glucose 105 H POC Glucose (mg/dL) 120 H Calcium 7.7 L Ionized Calcium Sagrario 4.4 L Magnesium Total Bilirubin AST Alkaline Phosphatase Total Protein 5.2 L Albumin 3.0 L Procalcitonin Arterial Blood Glucose Urine Protein Urine Ketones Urine Blood Ur Leukocyte Esterase Urine RBC Urine WBC Amorphous Sediment Crossmatch 05/15/23 05/15/23 05/15/23 04:09 05:55 06:52 WBC RBC Hgb Hct Plt Count Neutrophils # Lymphocytes # Monocytes # Eosinophils # APTT ABG pH ABG pCO2 ABG pO2 ABG HCO3 ABG Total CO2 ABG O2 Saturation ABG Glucose ABG Lactic Acid Hemoglobin Sodium Chloride Carbon Dioxide BUN Creatinine Glucose POC Glucose (mg/dL) 115 H 122 H 121 H Calcium Ionized Calcium Sagrario Magnesium Total Bilirubin AST Alkaline Phosphatase Total Protein Albumin Procalcitonin Arterial Blood Glucose Urine Protein Urine Ketones Urine Blood Ur Leukocyte Esterase Urine RBC Urine WBC Amorphous Sediment Crossmatch 05/15/23 05/15/23 05/15/23 08:21 10:31 11:29 WBC RBC Hgb Hct Plt Count Neutrophils # Lymphocytes # Monocytes # Eosinophils # APTT ABG pH ABG pCO2 ABG pO2 ABG HCO3 ABG Total CO2 ABG O2 Saturation ABG Glucose ABG Lactic Acid Hemoglobin Sodium Chloride Carbon Dioxide BUN Creatinine Glucose POC Glucose (mg/dL) 166 H 154 H 148 H Calcium Ionized Calcium [place] Magnesium Total Bilirubin AST Alkaline Phosphatase Total Protein Albumin Procalcitonin Arterial Blood Glucose Urine Protein Urine Ketones Urine Blood Ur Leukocyte Esterase Urine RBC Urine WBC Amorphous Sediment Crossmatch 05/15/23 05/15/23 05/15/23 12:15 12:37 13:10 WBC RBC Hgb Hct Plt Count Neutrophils # Lymphocytes # Monocytes # Eosinophils # APTT ABG pH ABG pCO2 32 L ABG pO2 66 L ABG HCO3 18 L ABG Total CO2 ABG O2 Saturation 93.9 L ABG Glucose ABG Lactic Acid Hemoglobin Sodium Chloride Carbon Dioxide BUN Creatinine Glucose POC Glucose (mg/dL) 164 H 190 H Calcium Ionized Calcium [place] Magnesium Total Bilirubin AST Alkaline Phosphatase Total Protein Albumin Procalcitonin Arterial Blood Glucose Urine Protein Urine Ketones Urine Blood Ur Leukocyte Esterase Urine RBC Urine WBC Amorphous Sediment Crossmatch 05/15/23 05/15/23 05/15/23 14:09 15:09 16:16 WBC RBC Hgb Hct Plt Count Neutrophils # Lymphocytes # Monocytes # Eosinophils # APTT ABG pH ABG pCO2 ABG pO2 ABG HCO3 ABG Total CO2 ABG O2 Saturation ABG Glucose ABG Lactic Acid Hemoglobin Sodium Chloride Carbon Dioxide BUN Creatinine Glucose POC Glucose (mg/dL) 188 H 172 H 154 H Calcium Ionized Calcium [place] Magnesium Total Bilirubin AST Alkaline Phosphatase Total Protein Albumin Procalcitonin Arterial Blood Glucose Urine Protein Urine Ketones Urine Blood Ur Leukocyte Esterase Urine RBC Urine WBC Amorphous Sediment Crossmatch 05/15/23 05/15/23 05/15/23 17:11 18:04 19:58 WBC RBC Hgb Hct Plt Count Neutrophils # Lymphocytes # Monocytes # Eosinophils # APTT ABG pH ABG pCO2 ABG pO2 ABG HCO3 ABG Total CO2 ABG O2 Saturation ABG Glucose ABG Lactic Acid Hemoglobin Sodium Chloride Carbon Dioxide BUN Creatinine Glucose POC Glucose (mg/dL) 162 H 186 H 218 H Calcium Ionized Calcium [place] Magnesium Total Bilirubin AST Alkaline Phosphatase Total Protein Albumin Procalcitonin Arterial Blood Glucose Urine Protein Urine Ketones Urine Blood Ur Leukocyte Esterase Urine RBC Urine WBC Amorphous Sediment Crossmatch 05/16/23 05/16/23 05/16/23 04:01 04:01 04:01 WBC 17.1 H RBC 2.78 L Hgb 9.4 L Hct 26.4 L Plt Count Neutrophils # 15.3 H Lymphocytes # 0.9 L Monocytes # Eosinophils # APTT ABG pH ABG pCO2 ABG pO2 ABG HCO3 ABG Total CO2 ABG O2 Saturation ABG Glucose ABG Lactic Acid Hemoglobin Sodium 133 L Chloride Carbon Dioxide 14 L BUN 57 H Creatinine 5.94 H Glucose 200 H POC Glucose (mg/dL) Calcium 7.7 L Ionized Calcium [place] Magnesium Total Bilirubin 1.4 H AST Alkaline Phosphatase Total Protein 5.4 L Albumin 3.0 L Procalcitonin 5.61 H Arterial Blood Glucose Urine Protein Urine Ketones Urine Blood Ur Leukocyte Esterase Urine RBC Urine WBC Amorphous Sediment Crossmatch 05/16/23 05/16/23 05/16/23 06:05 07:44 11:37 WBC RBC Hgb Hct Plt Count Neutrophils # Lymphocytes # Monocytes # Eosinophils # APTT ABG pH ABG pCO2 28 L ABG pO2 67 L ABG HCO3 16 L ABG Total CO2 16 L ABG O2 Saturation 93.8 L ABG Glucose ABG Lactic Acid Hemoglobin Sodium Chloride Carbon Dioxide BUN Creatinine Glucose POC Glucose (mg/dL) 281 H 309 H Calcium Ionized Calcium [place] Magnesium Total Bilirubin AST Alkaline Phosphatase Total Protein Albumin Procalcitonin Arterial Blood Glucose Urine Protein Urine Ketones Urine Blood Ur Leukocyte Esterase Urine RBC Urine WBC Amorphous Sediment Crossmatch 05/16/23 05/16/23 05/16/23 13:55 16:26 20:31 WBC RBC Hgb Hct Plt Count Neutrophils # Lymphocytes # Monocytes # Eosinophils # APTT ABG pH ABG pCO2 32 L ABG pO2 78 L ABG HCO3 20 L ABG Total CO2 ABG O2 Saturation ABG Glucose ABG Lactic Acid Hemoglobin Sodium Chloride Carbon Dioxide BUN Creatinine Glucose POC Glucose (mg/dL) 307 H 306 H Calcium Ionized Calcium [place] Magnesium Total Bilirubin AST Alkaline Phosphatase Total Protein Albumin Procalcitonin Arterial Blood Glucose Urine Protein Urine Ketones Urine Blood Ur Leukocyte Esterase Urine RBC Urine WBC Amorphous Sediment Crossmatch 05/17/23 05/17/23 05/17/23 01:50 04:55 04:55 WBC 14.0 H 13.0 H RBC 2.35 L 2.32 L Hgb 7.9 L D 7.7 L Hct 22.1 L 22.1 L Plt Count 136 L 140 L Neutrophils # 11.3 H Lymphocytes # 0.8 L Monocytes # Eosinophils # APTT ABG pH ABG pCO2 ABG pO2 ABG HCO3 ABG Total CO2 ABG O2 Saturation ABG Glucose ABG Lactic Acid Hemoglobin Sodium 132 L Chloride 97 L Carbon Dioxide 21 L BUN 67 H Creatinine 7.33 H* Glucose 226 H POC Glucose (mg/dL) Calcium 7.2 L Ionized Calcium [place] Magnesium Total Bilirubin AST 103 H Alkaline Phosphatase Total Protein 4.6 L Albumin 2.5 L Procalcitonin Arterial Blood Glucose Urine Protein Urine Ketones Urine Blood Ur Leukocyte Esterase Urine RBC Urine WBC Amorphous Sediment Crossmatch 05/17/23 05/17/23 05/17/23 04:55 05:05 05:58 WBC RBC Hgb Hct Plt Count Neutrophils # Lymphocytes # Monocytes # Eosinophils # APTT 43.5 H ABG pH ABG pCO2 ABG pO2 ABG HCO3 ABG Total CO2 ABG O2 Saturation 97.4 H ABG Glucose ABG Lactic Acid Hemoglobin Sodium Chloride Carbon Dioxide BUN Creatinine Glucose POC Glucose (mg/dL) 264 H Calcium Ionized Calcium [place] Magnesium Total Bilirubin AST Alkaline Phosphatase Total Protein Albumin Procalcitonin Arterial Blood Glucose Urine Protein Urine Ketones Urine Blood Ur Leukocyte Esterase Urine RBC Urine WBC Amorphous Sediment Crossmatch 05/17/23 05/17/23 05/17/23 09:44 11:04 11:57 WBC RBC Hgb Hct Plt Count Neutrophils # Lymphocytes # Monocytes # Eosinophils # APTT ABG pH ABG pCO2 ABG pO2 ABG HCO3 ABG Total CO2 ABG O2 Saturation ABG Glucose ABG Lactic Acid Hemoglobin Sodium Chloride Carbon Dioxide BUN Creatinine Glucose POC Glucose (mg/dL) 338 H 241 H 191 H Calcium Ionized Calcium [place] Magnesium Total Bilirubin AST Alkaline Phosphatase Total Protein Albumin Procalcitonin Arterial Blood Glucose Urine Protein Urine Ketones Urine Blood Ur Leukocyte Esterase Urine RBC Urine WBC Amorphous Sediment Crossmatch 05/17/23 05/17/23 05/17/23 12:06 12:06 12:06 WBC 14.4 H RBC 2.46 L Hgb 8.1 L Hct 22.9 L Plt Count Neutrophils # 12.7 H Lymphocytes # 0.6 L Monocytes # Eosinophils # APTT 44.5 H ABG pH ABG pCO2 ABG pO2 ABG HCO3 ABG Total CO2 ABG O2 Saturation ABG Glucose ABG Lactic Acid Hemoglobin Sodium 133 L Chloride Carbon Dioxide BUN 38 H Creatinine 4.09 H Glucose 166 H POC Glucose (mg/dL) Calcium 7.8 L Ionized Calcium [place] Magnesium Total Bilirubin AST 420 H Alkaline Phosphatase Total Protein 5.9 L Albumin 2.9 L Procalcitonin Arterial Blood Glucose Urine Protein Urine Ketones Urine Blood Ur Leukocyte Esterase Urine RBC Urine WBC Amorphous Sediment Crossmatch 05/17/23 05/17/23 05/17/23 12:06 12:09 13:09 WBC RBC Hgb Hct Plt Count Neutrophils # Lymphocytes # Monocytes # Eosinophils # APTT ABG pH 7.47 H ABG pCO2 34 L ABG pO2 60 L ABG HCO3 ABG Total CO2 26 H ABG O2 Saturation 92.6 L ABG Glucose ABG Lactic Acid Hemoglobin Sodium Chloride Carbon Dioxide BUN Creatinine Glucose POC Glucose (mg/dL) 174 H Calcium Ionized Calcium [place] Magnesium Total Bilirubin AST Alkaline Phosphatase Total Protein Albumin Procalcitonin Arterial Blood Glucose Urine Protein Urine Ketones Urine Blood Ur Leukocyte Esterase Urine RBC Urine WBC Amorphous Sediment Crossmatch See Detail 05/17/23 05/17/23 05/17/23 14:39 16:09 17:07 WBC RBC Hgb Hct Plt Count Neutrophils # Lymphocytes # Monocytes # Eosinophils # APTT ABG pH ABG pCO2 ABG pO2 ABG HCO3 ABG Total CO2 ABG O2 Saturation ABG Glucose ABG Lactic Acid Hemoglobin Sodium Chloride Carbon Dioxide BUN Creatinine Glucose POC Glucose (mg/dL) 143 H 133 H 122 H Calcium Ionized Calcium [place] Magnesium Total Bilirubin AST Alkaline Phosphatase Total Protein Albumin Procalcitonin Arterial Blood Glucose Urine Protein Urine Ketones Urine Blood Ur Leukocyte Esterase Urine RBC Urine WBC Amorphous Sediment Crossmatch 05/17/23 05/17/23 05/17/23 18:11 19:28 20:15 WBC RBC Hgb Hct Plt Count Neutrophils # Lymphocytes # Monocytes # Eosinophils # APTT ABG pH ABG pCO2 ABG pO2 ABG HCO3 ABG Total CO2 ABG O2 Saturation ABG Glucose ABG Lactic Acid Hemoglobin Sodium Chloride Carbon Dioxide BUN Creatinine Glucose POC Glucose (mg/dL) 114 H 132 H 133 H Calcium Ionized Calcium [place] Magnesium Total Bilirubin AST Alkaline Phosphatase Total Protein Albumin Procalcitonin Arterial Blood Glucose Urine Protein Urine Ketones Urine Blood Ur Leukocyte Esterase Urine RBC Urine WBC Amorphous Sediment Crossmatch 05/17/23 05/17/23 05/17/23 21:19 22:08 23:09 WBC RBC Hgb Hct Plt Count Neutrophils # Lymphocytes # Monocytes # Eosinophils # APTT ABG pH ABG pCO2 ABG pO2 ABG HCO3 ABG Total CO2 ABG O2 Saturation ABG Glucose ABG Lactic Acid Hemoglobin Sodium Chloride Carbon Dioxide BUN Creatinine Glucose POC Glucose (mg/dL) 135 H 132 H 120 H Calcium Ionized Calcium [place] Magnesium Total Bilirubin AST Alkaline Phosphatase Total Protein Albumin Procalcitonin Arterial Blood Glucose Urine Protein Urine Ketones Urine Blood Ur Leukocyte Esterase Urine RBC Urine WBC Amorphous Sediment Crossmatch 05/18/23 05/18/23 05/18/23 00:13 01:14 01:48 WBC RBC Hgb Hct Plt Count Neutrophils # Lymphocytes # Monocytes # Eosinophils # APTT ABG pH ABG pCO2 ABG pO2 ABG HCO3 ABG Total CO2 ABG O2 Saturation ABG Glucose ABG Lactic Acid Hemoglobin Sodium Chloride Carbon Dioxide BUN Creatinine Glucose POC Glucose (mg/dL) 113 H 125 H 128 H Calcium Ionized Calcium [place] Magnesium Total Bilirubin AST Alkaline Phosphatase Total Protein Albumin Procalcitonin Arterial Blood Glucose Urine Protein Urine Ketones Urine Blood Ur Leukocyte Esterase Urine RBC Urine WBC Amorphous Sediment Crossmatch 05/18/23 05/18/23 05/18/23 02:09 02:58 04:10 WBC RBC 2.35 L Hgb 7.7 L Hct 22.2 L Plt Count 130 L Neutrophils # Lymphocytes # Monocytes # Eosinophils # APTT ABG pH ABG pCO2 ABG pO2 ABG HCO3 ABG Total CO2 ABG O2 Saturation ABG Glucose ABG Lactic Acid Hemoglobin Sodium Chloride Carbon Dioxide BUN Creatinine Glucose POC Glucose (mg/dL) 125 H 118 H Calcium Ionized Calcium [place] Magnesium Total Bilirubin AST Alkaline Phosphatase Total Protein Albumin Procalcitonin Arterial Blood Glucose Urine Protein Urine Ketones Urine Blood Ur Leukocyte Esterase Urine RBC Urine WBC Amorphous Sediment Crossmatch 05/18/23 05/18/23 05/18/23 04:10 04:15 05:29 WBC RBC Hgb Hct Plt Count Neutrophils # Lymphocytes # Monocytes # Eosinophils # APTT ABG pH ABG pCO2 ABG pO2 ABG HCO3 ABG Total CO2 ABG O2 Saturation ABG Glucose ABG Lactic Acid Hemoglobin Sodium 135 L Chloride Carbon Dioxide 20 L BUN 50 H Creatinine 6.50 H Glucose POC Glucose (mg/dL) 114 H 139 H Calcium 7.4 L Ionized Calcium [place] Magnesium Total Bilirubin AST 255 H Alkaline Phosphatase Total Protein 5.5 L Albumin 2.8 L Procalcitonin Arterial Blood Glucose Urine Protein Urine Ketones Urine Blood Ur Leukocyte Esterase Urine RBC Urine WBC Amorphous Sediment Crossmatch 05/18/23 05/18/23 05/18/23 06:12 06:55 07:37 WBC RBC Hgb Hct Plt Count Neutrophils # Lymphocytes # Monocytes # Eosinophils # APTT ABG pH ABG pCO2 34 L ABG pO2 74 L ABG HCO3 20 L ABG Total CO2 ABG O2 Saturation ABG Glucose ABG Lactic Acid Hemoglobin Sodium Chloride Carbon Dioxide BUN Creatinine Glucose POC Glucose (mg/dL) 123 H 133 H Calcium Ionized Calcium [place] Magnesium Total Bilirubin AST Alkaline Phosphatase Total Protein Albumin Procalcitonin Arterial Blood Glucose Urine Protein Urine Ketones Urine Blood Ur Leukocyte Esterase Urine RBC Urine WBC Amorphous Sediment Crossmatch 05/18/23 05/18/23 08:06 09:08 WBC RBC Hgb Hct Plt Count Neutrophils # Lymphocytes # Monocytes # Eosinophils # APTT ABG pH ABG pCO2 ABG pO2 ABG HCO3 ABG Total CO2 ABG O2 Saturation ABG Glucose ABG Lactic Acid Hemoglobin Sodium Chloride Carbon Dioxide BUN Creatinine Glucose POC Glucose (mg/dL) 119 H 117 H Calcium Ionized Calcium [place] Magnesium Total Bilirubin AST Alkaline Phosphatase Total Protein Albumin Procalcitonin Arterial Blood Glucose Urine Protein Urine Ketones Urine Blood Ur Leukocyte Esterase Urine RBC Urine WBC Amorphous Sediment Crossmatch Assessment and Plan Assessment: * Episode of altered mental status, aphasia, that seems to have improved, but not resolved yet. Patient's examination reveals slight focal findings as mentioned above. Rule out metabolic encephalopathy. Rule out acute CVA. * Spiked a temperature last night, rule out sepsis. * Paroxysmal atrial fibrillation, currently in sinus rhythm. 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 Patient presented with elective coronary artery bypass graft surgery. Patient has been off Eliquis since the surgery. Patient had an episode of altered mental status, with possible some aphasia, which seems to have resolved. Patient at that time also had transient run of atrial fibrillation yesterday. Rule out acute ischemic stroke. * CT head revealed no acute intracranial process per nonspecific white matter changes, likely secondary to chronic small vessel ischemic disease. I personally requested he had come agree with the findings. There is evidence of old possible lacune in the bilateral external capsule. * Resume Eliquis 5 mg twice a day. Okay to keep on aspirin 81 mg daily as well. Would avoid DAPT if patient is to be on Eliquis as well. * Check MRI of the brain evaluate for acute stroke * 2-D echo revealed technically limited study. Moderately impaired left ventricular systolic function with linsey-apical hypokinesis. Small pericardial effusion. * Ammonia <9, TSH normal. Check B12 and folate. * Hemoglobin A1c 7.4 on 05/04/2023. * Lipid panel with cholesterol 108, LDL 44, HDL 35, triglycerides 140. Continue Crestor 40 mg daily. * EEG rule out epileptiform activity. * Neurology will follow. Thank you for the consult. Time with Patient: Greater than 30 (Complexity high)
[2023-05-18 16:06] LABS: Transitional Epi Cells,Urine 10 /hpf (0-1)
[2023-05-18 16:08] LABS: Bacteria,Urine Rare /hpf
[2023-05-18 16:13] LABS: Glucose,Whole Blood 136 mg/dL (70-110)
[2023-05-18 17:14] LABS: Glucose,Whole Blood 136 mg/dL (70-110)
[2023-05-18 18:18] LABS: Glucose,Whole Blood 173 mg/dL (70-110)
[2023-05-18 19:09] LABS: Glucose,Whole Blood 141 mg/dL (70-110)
[2023-05-18 19:57] LABS: Glucose,Whole Blood 133 mg/dL (70-110)
[2023-05-18] MEDS: APIXABAN 5 MG TAB PO SCH (20:13)
[2023-05-18] MEDS: INSULIN REGULAR 100 UNIT in SODIUM CHLORIDE 0.9% 100 ML IV SCH (20:20)
[2023-05-18 21:04] LABS: Glucose,Whole Blood 137 mg/dL (70-110)
--- NOTE | 2023-05-18 21:42 | P.PN ---
Subjective Pleasant 68 years old male with past medical history of Diabetes Mellitus, Hypertension, hyperlipidemia, benign prostatic hypertrophy, pulmonary embolism on blood thinner He was admitted for coronary artery disease affecting mainly to vessels and underwent coronary artery bypass surgery yesterday and he was on mechanical ventilation for a short lived time, eventually he got extubated. Comfortable in bed with no chest pain or dyspnea. Hemodynamically stable. Patient has mild worsening of creatinine 2.8, 1.3 yesterday 05/15/2023 Fascia temo bed comfortably with no complaints. Blood pressure still borderline. We will see improvement on 15. Creatinine up to 4.0. Nephrology was consulted. Patient is status post bolus of 500 mL of normal saline. His urine analysis is abnormal. Urine culture is negative. Bladder scan is negative. We don't a repeat urine culture Patient remains on aspirin Plavix and midodrine by surgery team 05/16/23 pt is awake alert with no dyspnea, no chest pain ,he denies any specific complaints but his renal function keep worsening and today his creatinine went up to 5.4, he was lasix drip at 20 mg per hour, pt is mostly will need hemodialysis per nephrology team pt is on dobutamine with poor urine output. pt has mild leukocytosis sugar is more 300 so increased levemir to 5 u bid and novolog 5 u tid ac pt is on bicarb drip as well kept on asprin and plavix , and midodrine 05/17/2023 Patient remains in ICU closely monitored case/critical care team, the primary cardiothoracic surgery team and investigative analyst as well as sas programmer remote. He is status post bypass surgery and today is postoperative day #4. Creatinine is elevated up to 7.3 today. He is getting treatment for hemodialysis started here in the ICU from. His Lasix drip and backup as well He remains on dopamine drip Blood pressure is borderline with systolic blood pressure is stable around 90s to 100. Hemoglobin 7.7, WBC within the reference range today 9000. Glucose was elevated more than 300 despite doubling the dose of Levemir last night to 5 mg twice a day. Therefore he was started on insulin drip This was discussed with patient in the thoracic primary team 05/18/2023 Patient is very lethargic and tired looking today. Open eyes to verbal stimuli and answer questions. He follows commands. Because of his change mentation neurologist has been consulted from a most likely patient will require MRI of the brain and EEG to rule out intracranial lesions or seizure activities. Blood pressure was controlled Labs reviewed Patient remains on insulin drip, dopamine drip and IV vancomycin Objective - Vital Signs Vital signs: Vital Signs Temp 98.7 F 05/18/23 06:15 Pulse 74 05/18/23 07:56 Resp 19 05/18/23 07:00 BP 98/44 05/18/23 07:00 Pulse Ox 97 05/18/23 07:44 FiO2 50 05/13/23 15:13 Intake & Output 05/17/23 05/18/23 05/18/23 18:59 06:59 18:59 Intake Total 2147.561 1181.389 147.434 Output Total 486 90 Balance 8850.561 8486.389 147.434 Weight 115.2 kg Intake: IV 835.5 564.9 116 Albumin Human 5% 250 ml 250 In Empty Bag 1 bag @ 250 mls/hr IVPB ONCE ONE Rx#: [id number] Dextrose 5% in Water 1, 300 000 ml @ 75 mls/hr IV . [id number] JESSICA with Sodium Bicarb (1 Meq/ml) 150 ml Rx#:[id number] Dextrose/Water 1 250ml. 43.5 2.9 bag @ 3 MCG/KG/MIN 5.828 mls/hr IV .Q24H JESSICA with DOPamine DRIP 800 mg Rx#: [id number] Furosemide 100 mg In 80 Sodium Chloride 0.9% 90 ml @ 20 MG/HR 20 mls/hr IV .Q5H JESSICA Rx#:[id number] Potassium Chloride 20 meq 100 100 In Water For Injection 1 100ml.bag @ 50 mls/hr IVPB ONCE STA Rx#: [id number] Sodium Chloride 0.9% 500 240 240 10 ml 500 ml @ 20 mls/hr IV .Q24H JESSICA Rx#:[id number] pressure bags 72 72 6 Intake, IV Titration 262.061 60.489 31.434 Amount Furosemide 200 mg In 192 Sodium Chloride 0.9% 180 ml @ 20 MG/HR 20 mls/hr IV .Q10H JESSICA Rx#: [id number] Insulin Regular 100 unit 70.061 47.276 13.240 In Sodium Chloride 0.9% 100 ml @ Per Protocol IV .Q0M JESSICA Rx#:[id number] Norepinephrine 4 mg In 13.213 18.194 Sodium Chloride 0.9% 250 ml @ 0.03 MCG/KG/MIN 12. 996 mls/hr IV .[id number] JESSICA Rx#:[id number] Oral 240 Blood Product 310 556 Rc As-1 Unit 310 [id number] Rc Pheresis Irrad As 3 278 Unit [id number] Hemodialysis 500 Output: Chest Tube Drainage 40 50 Pleural Catheter Left 40 50 Urine 31 40 Hemodialysis 415 Other: Voiding Method Indwelling Catheter Indwelling Catheter # Bowel Movements 1 ABP, PAP, CO, CI - Last Documented Arterial Blood Pressure 93/41 Pulmonary Artery Pressure 29/9 Cardiac Output 4.5 Cardiac Index 2.2 - Exam GENERAL: The patient is alert and oriented x3, not in any acute distress. Well developed, well nourished. HEENT: Pupils are round and equally reacting to light. EOMI. No scleral icterus. No conjunctival pallor. Normocephalic, atraumatic. No pharyngeal erythema. No thyromegaly. CARDIOVASCULAR: S1 and S2 present. No murmurs, rubs, or gallops. PULMONARY: Chest is clear to auscultation, no wheezing , no crackles. ABDOMEN: Soft, nontender, nondistended, normoactive bowel sounds. No palpable organomegaly. MUSCULOSKELETAL: No joint swelling or deformity. EXTREMITIES: No cyanosis, clubbing, or pedal edema. NEUROLOGICAL: Gross neurological examination did not reveal any focal deficits. SKIN: No rashes. no petechiae. - Labs CBC & Chem 7: 05/18/23 04:10 05/18/23 04:10 Labs: Abnormal Lab Results - Last 24 Hours (Table) 05/17/23 05/17/23 05/17/23 Range/Units 11:04 11:57 12:06 WBC 14.4 H (3.8-10.6) k/uL RBC 2.46 L (4.30-5.90) m/uL Hgb 8.1 L (13.0-17.5) gm/dL Hct 22.9 L (39.0-53.0) % Plt Count (150-450) k/uL Neutrophils # 12.7 H (1.3-7.7) k/uL Lymphocytes # 0.6 L (1.0-4.8) k/uL APTT (22.0-30.0) sec ABG pH (7.35-7.45) ABG pCO2 (35-45) mmHg ABG pO2 (83-108) mmHg ABG HCO3 (21-25) mmol/L ABG Total CO2 (19-24) mmol/L ABG O2 Saturation (94-97) % Sodium (137-145) mmol/L Carbon Dioxide (22-30) mmol/L BUN (9-20) mg/dL Creatinine (0.66-1.25) mg/dL Glucose (74-99) mg/dL POC Glucose (mg/dL) 241 H 191 H (70-110) mg/dL Calcium (8.4-10.2) mg/dL AST (17-59) U/L Total Protein (6.3-8.2) g/dL Albumin (3.5-5.0) g/dL Crossmatch 05/17/23 05/17/23 05/17/23 Range/Units 12:06 12:06 12:06 WBC (3.8-10.6) k/uL RBC (4.30-5.90) m/uL Hgb (13.0-17.5) gm/dL Hct (39.0-53.0) % Plt Count (150-450) k/uL Neutrophils # (1.3-7.7) k/uL Lymphocytes # (1.0-4.8) k/uL APTT 44.5 H (22.0-30.0) sec ABG pH (7.35-7.45) ABG pCO2 (35-45) mmHg ABG pO2 (83-108) mmHg ABG HCO3 (21-25) mmol/L ABG Total CO2 (19-24) mmol/L ABG O2 Saturation (94-97) % Sodium 133 L (137-145) mmol/L Carbon Dioxide (22-30) mmol/L BUN 38 H (9-20) mg/dL Creatinine 4.09 H (0.66-1.25) mg/dL Glucose 166 H (74-99) mg/dL POC Glucose (mg/dL) (70-110) mg/dL Calcium 7.8 L (8.4-10.2) mg/dL AST 420 H (17-59) U/L Total Protein 5.9 L (6.3-8.2) g/dL Albumin 2.9 L (3.5-5.0) g/dL Crossmatch See Detail 05/17/23 05/17/23 05/17/23 Range/Units 12:09 13:09 14:39 WBC (3.8-10.6) k/uL RBC (4.30-5.90) m/uL Hgb (13.0-17.5) gm/dL Hct (39.0-53.0) % Plt Count (150-450) k/uL Neutrophils # (1.3-7.7) k/uL Lymphocytes # (1.0-4.8) k/uL APTT (22.0-30.0) sec ABG pH 7.47 H (7.35-7.45) ABG pCO2 34 L (35-45) mmHg ABG pO2 60 L (83-108) mmHg ABG HCO3 (21-25) mmol/L ABG Total CO2 26 H (19-24) mmol/L ABG O2 Saturation 92.6 L (94-97) % Sodium (137-145) mmol/L Carbon Dioxide (22-30) mmol/L BUN (9-20) mg/dL Creatinine (0.66-1.25) mg/dL Glucose (74-99) mg/dL POC Glucose (mg/dL) 174 H 143 H (70-110) mg/dL Calcium (8.4-10.2) mg/dL AST (17-59) U/L Total Protein (6.3-8.2) g/dL Albumin (3.5-5.0) g/dL Crossmatch 05/17/23 05/17/23 05/17/23 Range/Units 16:09 17:07 18:11 WBC (3.8-10.6) k/uL RBC (4.30-5.90) m/uL Hgb (13.0-17.5) gm/dL Hct (39.0-53.0) % Plt Count (150-450) k/uL Neutrophils # (1.3-7.7) k/uL Lymphocytes # (1.0-4.8) k/uL APTT (22.0-30.0) sec ABG pH (7.35-7.45) ABG pCO2 (35-45) mmHg ABG pO2 (83-108) mmHg ABG HCO3 (21-25) mmol/L ABG Total CO2 (19-24) mmol/L ABG O2 Saturation (94-97) % Sodium (137-145) mmol/L Carbon Dioxide (22-30) mmol/L BUN (9-20) mg/dL Creatinine (0.66-1.25) mg/dL Glucose (74-99) mg/dL POC Glucose (mg/dL) 133 H 122 H 114 H (70-110) mg/dL Calcium (8.4-10.2) mg/dL AST (17-59) U/L Total Protein (6.3-8.2) g/dL Albumin (3.5-5.0) g/dL Crossmatch 05/17/23 05/17/23 05/17/23 Range/Units 19:28 20:15 21:19 WBC (3.8-10.6) k/uL RBC (4.30-5.90) m/uL Hgb (13.0-17.5) gm/dL Hct (39.0-53.0) % Plt Count (150-450) k/uL Neutrophils # (1.3-7.7) k/uL Lymphocytes # (1.0-4.8) k/uL APTT (22.0-30.0) sec ABG pH (7.35-7.45) ABG pCO2 (35-45) mmHg ABG pO2 (83-108) mmHg ABG HCO3 (21-25) mmol/L ABG Total CO2 (19-24) mmol/L ABG O2 Saturation (94-97) % Sodium (137-145) mmol/L Carbon Dioxide (22-30) mmol/L BUN (9-20) mg/dL Creatinine (0.66-1.25) mg/dL Glucose (74-99) mg/dL POC Glucose (mg/dL) 132 H 133 H 135 H (70-110) mg/dL Calcium (8.4-10.2) mg/dL AST (17-59) U/L Total Protein (6.3-8.2) g/dL Albumin (3.5-5.0) g/dL Crossmatch 05/17/23 05/17/23 05/18/23 Range/Units 22:08 23:09 00:13 WBC (3.8-10.6) k/uL RBC (4.30-5.90) m/uL Hgb (13.0-17.5) gm/dL Hct (39.0-53.0) % Plt Count (150-450) k/uL Neutrophils # (1.3-7.7) k/uL Lymphocytes # (1.0-4.8) k/uL APTT (22.0-30.0) sec ABG pH (7.35-7.45) ABG pCO2 (35-45) mmHg ABG pO2 (83-108) mmHg ABG HCO3 (21-25) mmol/L ABG Total CO2 (19-24) mmol/L ABG O2 Saturation (94-97) % Sodium (137-145) mmol/L Carbon Dioxide (22-30) mmol/L BUN (9-20) mg/dL Creatinine (0.66-1.25) mg/dL Glucose (74-99) mg/dL POC Glucose (mg/dL) 132 H 120 H 113 H (70-110) mg/dL Calcium (8.4-10.2) mg/dL AST (17-59) U/L Total Protein (6.3-8.2) g/dL Albumin (3.5-5.0) g/dL Crossmatch 05/18/23 05/18/23 05/18/23 Range/Units 01:14 01:48 02:09 WBC (3.8-10.6) k/uL RBC (4.30-5.90) m/uL Hgb (13.0-17.5) gm/dL Hct (39.0-53.0) % Plt Count (150-450) k/uL Neutrophils # (1.3-7.7) k/uL Lymphocytes # (1.0-4.8) k/uL APTT (22.0-30.0) sec ABG pH (7.35-7.45) ABG pCO2 (35-45) mmHg ABG pO2 (83-108) mmHg ABG HCO3 (21-25) mmol/L ABG Total CO2 (19-24) mmol/L ABG O2 Saturation (94-97) % Sodium (137-145) mmol/L Carbon Dioxide (22-30) mmol/L BUN (9-20) mg/dL Creatinine (0.66-1.25) mg/dL Glucose (74-99) mg/dL POC Glucose (mg/dL) 125 H 128 H 125 H (70-110) mg/dL Calcium (8.4-10.2) mg/dL AST (17-59) U/L Total Protein (6.3-8.2) g/dL Albumin (3.5-5.0) g/dL Crossmatch 05/18/23 05/18/23 05/18/23 Range/Units 02:58 04:10 04:10 WBC (3.8-10.6) k/uL RBC 2.35 L (4.30-5.90) m/uL Hgb 7.7 L (13.0-17.5) gm/dL Hct 22.2 L (39.0-53.0) % Plt Count 130 L (150-450) k/uL Neutrophils # (1.3-7.7) k/uL Lymphocytes # (1.0-4.8) k/uL APTT (22.0-30.0) sec ABG pH (7.35-7.45) ABG pCO2 (35-45) mmHg ABG pO2 (83-108) mmHg ABG HCO3 (21-25) mmol/L ABG Total CO2 (19-24) mmol/L ABG O2 Saturation (94-97) % Sodium 135 L (137-145) mmol/L Carbon Dioxide 20 L (22-30) mmol/L BUN 50 H (9-20) mg/dL Creatinine 6.50 H (0.66-1.25) mg/dL Glucose (74-99) mg/dL POC Glucose (mg/dL) 118 H (70-110) mg/dL Calcium 7.4 L (8.4-10.2) mg/dL AST 255 H (17-59) U/L Total Protein 5.5 L (6.3-8.2) g/dL Albumin 2.8 L (3.5-5.0) g/dL Crossmatch 05/18/23 05/18/23 05/18/23 Range/Units 04:15 05:29 06:12 WBC (3.8-10.6) k/uL RBC (4.30-5.90) m/uL Hgb (13.0-17.5) gm/dL Hct (39.0-53.0) % Plt Count (150-450) k/uL Neutrophils # (1.3-7.7) k/uL Lymphocytes # (1.0-4.8) k/uL APTT (22.0-30.0) sec ABG pH (7.35-7.45) ABG pCO2 (35-45) mmHg ABG pO2 (83-108) mmHg ABG HCO3 (21-25) mmol/L ABG Total CO2 (19-24) mmol/L ABG O2 Saturation (94-97) % Sodium (137-145) mmol/L Carbon Dioxide (22-30) mmol/L BUN (9-20) mg/dL Creatinine (0.66-1.25) mg/dL Glucose (74-99) mg/dL POC Glucose (mg/dL) 114 H 139 H 123 H (70-110) mg/dL Calcium (8.4-10.2) mg/dL AST (17-59) U/L Total Protein (6.3-8.2) g/dL Albumin (3.5-5.0) g/dL Crossmatch 05/18/23 05/18/23 05/18/23 Range/Units 06:55 07:37 08:06 WBC (3.8-10.6) k/uL RBC (4.30-5.90) m/uL Hgb (13.0-17.5) gm/dL Hct (39.0-53.0) % Plt Count (150-450) k/uL Neutrophils # (1.3-7.7) k/uL Lymphocytes # (1.0-4.8) k/uL APTT (22.0-30.0) sec ABG pH (7.35-7.45) ABG pCO2 34 L (35-45) mmHg ABG pO2 74 L (83-108) mmHg ABG HCO3 20 L (21-25) mmol/L ABG Total CO2 (19-24) mmol/L ABG O2 Saturation (94-97) % Sodium (137-145) mmol/L Carbon Dioxide (22-30) mmol/L BUN (9-20) mg/dL Creatinine (0.66-1.25) mg/dL Glucose (74-99) mg/dL POC Glucose (mg/dL) 133 H 119 H (70-110) mg/dL Calcium (8.4-10.2) mg/dL AST (17-59) U/L Total Protein (6.3-8.2) g/dL Albumin (3.5-5.0) g/dL Crossmatch 05/18/23 Range/Units 09:08 WBC (3.8-10.6) k/uL RBC (4.30-5.90) m/uL Hgb (13.0-17.5) gm/dL Hct (39.0-53.0) % Plt Count (150-450) k/uL Neutrophils # (1.3-7.7) k/uL Lymphocytes # (1.0-4.8) k/uL APTT (22.0-30.0) sec ABG pH (7.35-7.45) ABG pCO2 (35-45) mmHg ABG pO2 (83-108) mmHg ABG HCO3 (21-25) mmol/L ABG Total CO2 (19-24) mmol/L ABG O2 Saturation (94-97) % Sodium (137-145) mmol/L Carbon Dioxide (22-30) mmol/L BUN (9-20) mg/dL Creatinine (0.66-1.25) mg/dL Glucose (74-99) mg/dL POC Glucose (mg/dL) 117 H (70-110) mg/dL Calcium (8.4-10.2) mg/dL AST (17-59) U/L Total Protein (6.3-8.2) g/dL Albumin (3.5-5.0) g/dL Crossmatch Microbiology - Last 24 Hours (Table) 05/17/23 08:15 Gram Stain - Preliminary Sputum 05/15/23 20:00 Urine Culture - Final Urine,Catheterized Assessment and Plan Assessment: Coronary artery disease status post CABG surgery on 05/13 Acute kidney injury on chronic kidney disease stage III. Requiring hemodialysis Mental status most likely metabolic encephalopathy, rule out intracranial lesion Cardiomyopathy with ejection fraction 40-45% Diabetes mellitus History of Hypertension, currently pressure is borderline Hyperlipidemia History of pulmonary embolism on Eliquis Leukocytosis, Improving Plan: Continue with Aspirin and Plavix Neurology consult, patient on MRI of the brain and EEG Continue with amiodarone drip per critical care team. Started on hemodialysis per nephrology team Continue the breathing treatment Start insulin drip and monitor glucose Incentive spirometry Nephrology consult Several consultants on the case significant cardiothoracic surgery primary team, pulmonary team and cardiology team Labs and medication reviewed.. Continue same treatment. Continue with symptomatic treatment. Resume home medication. Monitor lytes and vitals. DVT and GI prophylaxis. Further recommendations depends on the clinical course of the patient DVT prophylaxis: Deferred to surgery team GI Prophylaxis: Ppi thank you for consulting us and we will follow up with the
[2023-05-18 23:14] LABS: Glucose,Whole Blood 110 mg/dL (70-110)
[2023-05-19 00:15] LABS: Glucose,Whole Blood 125 mg/dL (70-110)
[2023-05-19 01:01] LABS: Glucose,Whole Blood 176 mg/dL (70-110)
[2023-05-19] MEDS: AMIODARONE 200 MG TAB PO SCH ×3 (01:12→20:12)
[2023-05-19 01:59] LABS: Glucose,Whole Blood 112 mg/dL (70-110)
[2023-05-19 03:10] LABS: Glucose,Whole Blood 120 mg/dL (70-110)
[2023-05-19 04:13] LABS: Glucose,Whole Blood 120 mg/dL (70-110)
[2023-05-19 04:51] LABS: Basophils % (A) 0 %; Eosinophils # (A) 0.4 k/uL (0-0.7); Eosinophils % (A) 5 %; HCT 23.8 % (39.0-53.0); HGB 7.7 gm/dL (13.0-17.5); Lymphocytes # (A) 0.8 k/uL (1.0-4.8); Lymphocytes % (A) 9 %; MCH 29.3 pg (25.0-35.0); MCHC 32.2 g/dL (31.0-37.0); MCV 91.2 fL (80.0-100.0); Mean Platelet Volume 7.7; Monocytes # (A) 0.4 k/uL (0-1.0); Monocytes % (A) 5 %; Neutrophils # (A) 6.7 k/uL (1.3-7.7); Neutrophils % (A) 80 %; Platelet Count 147 k/uL (150-450); RBC 2.61 m/uL (4.30-5.90); RDW 15.3 % (11.5-15.5); WBC 8.4 k/uL (3.8-10.6)
[2023-05-19] MEDS: NOREPINEPHRINE 4 MG in SODIUM CHLORIDE 0.9% 250 ML IV SCH ×2 (04:55→17:10)
[2023-05-19 05:10] LABS: ALT 43 U/L (4-49); AST 257 U/L (17-59); African American GFR (CKD) 12 (>60 ml/min/1.73 sqM); Albumin 2.4 g/dL (3.5-5.0); Alkaline Phosphatase 135 U/L (38-126); Anion Gap 10 mmol/L; Blood Urea Nitrogen 36 mg/dL (9-20); Calcium 7.6 mg/dL (8.4-10.2); Carbon Dioxide 24 mmol/L (22-30); Chloride 100 mmol/L (98-107); Glucose 116 mg/dL (74-99); Magnesium 2.1 mg/dL (1.6-2.3); Non-African American GFR(CKD) 10 (>60 ml/min/1.73 sqM); Potassium 3.9 mmol/L (3.5-5.1); Sodium 134 mmol/L (137-145); Total Bilirubin 1.3 mg/dL (0.2-1.3); Total Protein 4.8 g/dL (6.3-8.2)
[2023-05-19 06:10] LABS: Glucose,Whole Blood 120 mg/dL (70-110)
[2023-05-19] MEDS: MIDODRINE 5 MG TAB PO SCH ×3 (06:22→17:08)
[2023-05-19] MEDS: PANTOPRAZOLE 40 MG TABLET PO SCH (06:22)
[2023-05-19 07:05] LABS: Glucose,Whole Blood 113 mg/dL (70-110)
[2023-05-19] MEDS ORDERED: VANCOMYCIN 1,750 MG in SODIUM CHLORIDE 0.9% 500 ML 500 ML IVPB ONE (08:00)
[2023-05-19 08:16] LABS: Glucose,Whole Blood 134 mg/dL (70-110)
--- NOTE | 2023-05-19 08:25 | XR ---
EXAMINATION TYPE: XR chest 1V portable DATE OF EXAM: 05/19/2023 6:22 AM COMPARISON: Chest radiographs from 725.3 TECHNIQUE: XR chest 1V portable Frontal view of the chest. CLINICAL INDICATION:Male, 68 years old with history of Status post CABG ?2; FINDINGS: Lungs/Pleura: There is no evidence of left pleural effusion, focal consolidation, or pneumothorax. B lunting of the right costophrenic angle. Pulmonary vascularity: Unremarkable. Heart/mediastinum: Cardiomediastinal silhouette is unremarkable. Left atrial appendage occlusion ruperto ce is present. Musculoskeletal: No acute osseous pathology. Midline sternotomy wires are noted. Other findings: None Lines/Tubes: Left thoracotomy tube is present without evidence of pneumothorax. IMPRESSION: Left thoracotomy tube without evidence for large pneumothorax. Overall the exam is unchanged with alecia pected right small pleural effusion.
--- NOTE | 2023-05-19 08:55 | P.PN ---
Subjective Progress Note Date: 05/19/23 Principal diagnosis: Two-vessel coronary artery disease. Previous medical history of nonischemic cardiomyopathy with EF 25-30% with improvement EF of 45-50% with intense medical therapy, chronic LV thrombus, pulmonary embolus on eliquis outpatient, hypertension, hyperlipidemia, diabetes mellitus, CVA with residual right-sided weakness, COVID-19 infection in early 2021, chronic kidney disease stage IV with baseline creatinine of 2.0, and BPH status post TURP POD #6 Off pump coronary artery bypass grafting x 2. Left internal thoracic artery (in-situ) to left anterior descending artery, saphenous vein from aorta to posterior descending artery, endoscopic right greater saphenous vein harvest, left atrial appendage ligation using 35mm AtriClip, graft flow measurements usin g the [employer] flow meter system, and intraoperative transesophageal echocardiogram performed by anesthesia. Postoperative acute blood loss anemia and thrombocytopenia, expected given hemodilution Intra and postoperative hypotension, unexpected Acute kidney injury, likely secondary to hypoperfusion, status post temporary hemodialysis catheter Paroxysmal atrial fibrillation, known common occurrence after cardiac surgery, currently in normal sinus rhythm Mental status change, unsure of eitiology, possible metabolic encephalopathy vs new stroke The patient was seen and examined sitting up in bed in the ICU in no acute distress. He denies any pain or shortness of breath currently. Currently sinus rhythm with PACs, blood pressure marginal on oral midodrine. Hemodialysis catheter placed Wednesday, patient received HD the last 2 days. Was given IV lasix yesterday by nephrology, no increase in urine output. Patient's mentation shows patient to be more alert this morning but he is confused. Neuro saw patient and wants MRI to rule out stroke. Restarted on Eliquis yesterday. Right internal jugular Cordis, right radial arterial line, left pleural chest tube remains present. Chest x-ray, labs reviewed. Patient had temp 101.3F / in the middle of the night, Tmax in last 24 hours 99.7F, reinoso cultures were sent, was started on cefepime and vanco yesterday. Objective - Vital Signs Vital signs: Vital Signs Temp 99.0 F 05/19/23 08:00 Pulse 72 05/19/23 08:15 Resp 28 H 05/19/23 08:15 BP 120/61 05/19/23 08:15 Pulse Ox 98 05/19/23 08:15 FiO2 50 05/13/23 15:13 Intake & Output 05/18/23 05/19/23 05/19/23 18:59 06:59 18:59 Intake Total 1815.943 324.851 61.848 Output Total 1113 119 5 Balance 702.943 205.851 56.848 Weight 116.5 kg Intake: IV 912 292 52 Cefepime 0.5 gm In Sodium 50 Chloride 0.9% 50 ml @ 12 .5 mls/hr IVPB Q24HR [facility] Rx#:[id number] Potassium Chloride 20 meq 100 In Water For Injection 1 100ml.bag @ 50 mls/hr IVPB ONCE STA Rx#: [id number] Sodium Chloride 0.9% 500 190 220 40 ml 500 ml @ 20 mls/hr IV .Q24H [facility] Rx#:[id number] Vancomycin 1,750 mg In 500 Sodium Chloride 0.9% 500 ml 500 ml @ 167 mls/hr IVPB ONCE ONE Rx#: [id number] pressure bags 72 72 12 Intake, IV Titration 103.943 32.851 9.848 Amount Insulin Regular 100 unit 37.808 32.851 9.848 In Sodium Chloride 0.9% 100 ml @ Per Protocol IV .Q0M [facility] Rx#:[id number] Norepinephrine 4 mg In 66.135 Sodium Chloride 0.9% 250 ml @ 0.03 MCG/KG/MIN 12. 996 mls/hr IV .[id number] [facility] Rx#:[id number] Oral 300 Hemodialysis 500 Output: Chest Tube Drainage 60 70 Pleural Catheter Left 60 70 Urine 53 49 5 Hemodialysis 1000 Other: Voiding Method Indwelling Catheter Indwelling Catheter Indwelling Catheter # Bowel Movements 1 ABP, PAP, CO, CI - Last Documented Arterial Blood Pressure 179/67 Pulmonary Artery Pressure 29/9 Cardiac Output 4.5 Cardiac Index 2.2 - Exam CONSTITUTIONAL: Appears comfortable, cooperative, no acute distress RESPIRATORY: Lungs sounds diminished bilaterally. Respirations even, nonlabored. Currently on 4 L nasal cannula with oxygen saturation 97%. Able to achieve 750 mL on incentive spirometry. Strong productive cough. CARDIOVASCULAR: S1, S2 present. Regular rate and rhythm, sinus rhythm with occasional PACs on telemetry. Sternum stable. Palpable peripheral pulses bilaterally. Generalized edema present. No calf pain or tenderness noted. Heart hugger, antiembolism stockings, SCDs present. GASTROINTESTINAL: Abdomen soft, nontender, nondistended, obese. Active bowel sounds present 4 quadrants. Tolerating diet. Positive bowel movement 05/18 GENITOURINARY: Nelson present draining clear, yellow urine. Output overnight 1- 5 mL per hour, 120 mL in the last 24 hours INTEGUMENTARY: Skin is warm and dry. Anterior chest incision well approximated and covered with dry intact dressing. Right lower extremity EVH site well approximated without redness or drainage. NEUROLOGIC: Cranial nerves II through XII intact MUSKULOSKELETAL: Able to move all extremities, strength equal bilaterally PSYCHIATRIC: Alert and oriented to person only, thinks its 2020 and can't tell the month, doesn't know he had open heart surgery INVASIVE LINES AND TUBES: Left pleural chest tube present and connected to wall suction, no air leaks present, 70 mL serosanguineous drainage overnight, 120 mL in the last 24 hours. Right internal jugular cordis, right radial arterial line present. Right femoral dialysis catheter present - Allied health notes Allied health notes reviewed: nursing - Labs CBC & Chem 7: 05/19/23 04:26 05/19/23 04:26 Labs: Abnormal Lab Results - Last 24 Hours (Table) 05/18/23 05/18/23 05/18/23 Range/Units 09:08 11:03 12:58 RBC (4.30-5.90) m/uL Hgb (13.0-17.5) gm/dL Hct (39.0-53.0) % Plt Count (150-450) k/uL Lymphocytes # (1.0-4.8) k/uL Sodium (137-145) mmol/L BUN (9-20) mg/dL Creatinine (0.66-1.25) mg/dL Glucose (74-99) mg/dL POC Glucose (mg/dL) 117 H 115 H 131 H (70-110) mg/dL Calcium (8.4-10.2) mg/dL AST (17-59) U/L Alkaline Phosphatase (38-126) U/L Total Protein (6.3-8.2) g/dL Albumin (3.5-5.0) g/dL Urine Protein (Negative) Urine Glucose (UA) (Negative) Urine Blood (Negative) Ur Leukocyte Esterase (Negative) Urine RBC (0-5) /hpf Urine WBC (0-5) /hpf Ur Squamous Epith Cells (0-4) /hpf Ur Transition Epith Cell (0-1) /hpf Urine Bacteria (None) /hpf 05/18/23 05/18/23 05/18/23 Range/Units 14:06 14:40 16:12 RBC (4.30-5.90) m/uL Hgb (13.0-17.5) gm/dL Hct (39.0-53.0) % Plt Count (150-450) k/uL Lymphocytes # (1.0-4.8) k/uL Sodium (137-145) mmol/L BUN (9-20) mg/dL Creatinine (0.66-1.25) mg/dL Glucose (74-99) mg/dL POC Glucose (mg/dL) 154 H 136 H (70-110) mg/dL Calcium (8.4-10.2) mg/dL AST (17-59) U/L Alkaline Phosphatase (38-126) U/L Total Protein (6.3-8.2) g/dL Albumin (3.5-5.0) g/dL Urine Protein 3+ H (Negative) Urine Glucose (UA) 1+ H (Negative) Urine Blood Large H (Negative) Ur Leukocyte Esterase Large H (Negative) Urine RBC >182 H (0-5) /hpf Urine WBC 50 H (0-5) /hpf Ur Squamous Epith Cells 10 H (0-4) /hpf Ur Transition Epith Cell 10 H (0-1) /hpf Urine Bacteria Rare H (None) /hpf 05/18/23 05/18/23 05/18/23 Range/Units 17:12 18:16 19:06 RBC (4.30-5.90) m/uL Hgb (13.0-17.5) gm/dL Hct (39.0-53.0) % Plt Count (150-450) k/uL Lymphocytes # (1.0-4.8) k/uL Sodium (137-145) mmol/L BUN (9-20) mg/dL Creatinine (0.66-1.25) mg/dL Glucose (74-99) mg/dL POC Glucose (mg/dL) 136 H 173 H 141 H (70-110) mg/dL Calcium (8.4-10.2) mg/dL AST (17-59) U/L Alkaline Phosphatase (38-126) U/L Total Protein (6.3-8.2) g/dL Albumin (3.5-5.0) g/dL Urine Protein (Negative) Urine Glucose (UA) (Negative) Urine Blood (Negative) Ur Leukocyte Esterase (Negative) Urine RBC (0-5) /hpf Urine WBC (0-5) /hpf Ur Squamous Epith Cells (0-4) /hpf Ur Transition Epith Cell (0-1) /hpf Urine Bacteria (None) /hpf 05/18/23 05/18/23 05/19/23 Range/Units 19:56 21:03 00:13 RBC (4.30-5.90) m/uL Hgb (13.0-17.5) gm/dL Hct (39.0-53.0) % Plt Count (150-450) k/uL Lymphocytes # (1.0-4.8) k/uL Sodium (137-145) mmol/L BUN (9-20) mg/dL Creatinine (0.66-1.25) mg/dL Glucose (74-99) mg/dL POC Glucose (mg/dL) 133 H 137 H 125 H (70-110) mg/dL Calcium (8.4-10.2) mg/dL AST (17-59) U/L Alkaline Phosphatase (38-126) U/L Total Protein (6.3-8.2) g/dL Albumin (3.5-5.0) g/dL Urine Protein (Negative) Urine Glucose (UA) (Negative) Urine Blood (Negative) Ur Leukocyte Esterase (Negative) Urine RBC (0-5) /hpf Urine WBC (0-5) /hpf Ur Squamous Epith Cells (0-4) /hpf Ur Transition Epith Cell (0-1) /hpf Urine Bacteria (None) /hpf 05/19/23 05/19/23 05/19/23 Range/Units 00:59 01:57 03:09 RBC (4.30-5.90) m/uL Hgb (13.0-17.5) gm/dL Hct (39.0-53.0) % Plt Count (150-450) k/uL Lymphocytes # (1.0-4.8) k/uL Sodium (137-145) mmol/L BUN (9-20) mg/dL Creatinine (0.66-1.25) mg/dL Glucose (74-99) mg/dL POC Glucose (mg/dL) 176 H 112 H 120 H (70-110) mg/dL Calcium (8.4-10.2) mg/dL AST (17-59) U/L Alkaline Phosphatase (38-126) U/L Total Protein (6.3-8.2) g/dL Albumin (3.5-5.0) g/dL Urine Protein (Negative) Urine Glucose (UA) (Negative) Urine Blood (Negative) Ur Leukocyte Esterase (Negative) Urine RBC (0-5) /hpf Urine WBC (0-5) /hpf Ur Squamous Epith Cells (0-4) /hpf Ur Transition Epith Cell (0-1) /hpf Urine Bacteria (None) /hpf 05/19/23 05/19/23 05/19/23 Range/Units 04:12 04:26 04:26 RBC 2.61 L (4.30-5.90) m/uL Hgb 7.7 L (13.0-17.5) gm/dL Hct 23.8 L (39.0-53.0) % Plt Count 147 L (150-450) k/uL Lymphocytes # 0.8 L (1.0-4.8) k/uL Sodium 134 L (137-145) mmol/L BUN 36 H (9-20) mg/dL Creatinine 5.26 H (0.66-1.25) mg/dL Glucose 116 H (74-99) mg/dL POC Glucose (mg/dL) 120 H (70-110) mg/dL Calcium 7.6 L (8.4-10.2) mg/dL AST 257 H (17-59) U/L Alkaline Phosphatase 135 H (38-126) U/L Total Protein 4.8 L (6.3-8.2) g/dL Albumin 2.4 L (3.5-5.0) g/dL Urine Protein (Negative) Urine Glucose (UA) (Negative) Urine Blood (Negative) Ur Leukocyte Esterase (Negative) Urine RBC (0-5) /hpf Urine WBC (0-5) /hpf Ur Squamous Epith Cells (0-4) /hpf Ur Transition Epith Cell (0-1) /hpf Urine Bacteria (None) /hpf 05/19/23 05/19/23 05/19/23 Range/Units 06:08 07:04 08:13 RBC (4.30-5.90) m/uL Hgb (13.0-17.5) gm/dL Hct (39.0-53.0) % Plt Count (150-450) k/uL Lymphocytes # (1.0-4.8) k/uL Sodium (137-145) mmol/L BUN (9-20) mg/dL Creatinine (0.66-1.25) mg/dL Glucose (74-99) mg/dL POC Glucose (mg/dL) 120 H 113 H 134 H (70-110) mg/dL Calcium (8.4-10.2) mg/dL AST (17-59) U/L Alkaline Phosphatase (38-126) U/L Total Protein (6.3-8.2) g/dL Albumin (3.5-5.0) g/dL Urine Protein (Negative) Urine Glucose (UA) (Negative) Urine Blood (Negative) Ur Leukocyte Esterase (Negative) Urine RBC (0-5) /hpf Urine WBC (0-5) /hpf Ur Squamous Epith Cells (0-4) /hpf Ur Transition Epith Cell (0-1) /hpf Urine Bacteria (None) /hpf Microbiology - Last 24 Hours (Table) 05/17/23 08:15 Gram Stain - Preliminary Sputum - Imaging and Cardiology Chest x-ray: image reviewed Assessment and Plan Assessment: Two-vessel coronary artery disease, status post off-pump 2 vessel CABG History of nonischemic cardiomyopathy with EF 25-30% with improvement EF of 45- 50% with intense medical therapy, on Entresto outpatient Chronic LV thrombus Pulmonary embolus on eliquis outpatient History of hypertension, currently hypotensive Hyperlipidemia, treated, cholesterol 108, LDL 44 Diabetes mellitus, hemoglobin A1c 7.4% CVA with residual right-sided weakness COVID-19 infection in early 2021 Chronic kidney disease stage IV with baseline creatinine of 2.0 BPH status post TURP Postoperative acute blood loss anemia and thrombocytopenia, expected Intra and postoperative hypotension, unexpected Acute kidney injury, likely secondary to hypoperfusion, status post temporary hemodialysis catheter Paroxysmal atrial fibrillation, status post ligation of left atrial appendage, currently in sinus rhythm Mental status change, unsure of eitiology, possible metabolic encephalopathy vs new stroke Plan: Continue to maximize medical therapy with low dose aspirin, statin, Eliquis, beta keara therapy. Will increase beta keara as tolerated Continue amiodarone for afib prophylaxis Wean O2 as tolerated. Encourage incentive spirometry use 10 times every hour while awake. Bronchodilators per pulmonology. Continue Midodrine 10 mg by mouth 3 times a day to help with blood pressure support. Hold for systolic blood pressure greater than 120 mmHg. Will monitor daily labs and chest x-rays. Electrolyte replacement per protocol. Monitor for finalized culture results GI/DVT prophylaxis. Increase activity as tolerated. PT/OT/cardiac rehab following Pain control with current medication regimen. No Toradol due to kidney disease. Insulin management per internal medicine service, patient's preoperative hemoglobin A1c was 7.4% Likely will discontinue left pleural chest tube Continue Nelson catheter for another 24 hours for strict accurate intake and output. Avoid nephrotoxic agents Daily weights Dialysis per nephrology Likely will discontinue right IJ Cordis Continue antibiotics until cultures finalized MRI, EEG ordered by neurology More recommendations to follow
[2023-05-19 08:59] LABS: Glucose,Whole Blood 158 mg/dL (70-110)
[2023-05-19] MEDS ORDERED: INSULIN DETEMIR (LEVEMIR) 100 UNIT/ML SYR SQ SCH (09:00)
[2023-05-19] MEDS ORDERED: ASPIRIN 325 MG TAB PO SCH (09:00)
[2023-05-19] MEDS: ACETYLCYSTEINE 800 MG/4 ML VIAL INHALATION SCH ×4 (09:23→20:22)
[2023-05-19] MEDS: IPRATROPIUM-ALBUTEROL 3 ML NEB INHALATION SCH ×4 (09:24→20:22)
[2023-05-19] MEDS: APIXABAN 2.5 MG TABLET PO SCH ×2 (09:41→20:12)
[2023-05-19 10:22] LABS: Glucose,Whole Blood 177 mg/dL (70-110)
[2023-05-19] MEDS: APIXABAN 5 MG TAB PO SCH (10:47)
[2023-05-19 11:11] LABS: Glucose,Whole Blood 155 mg/dL (70-110)
--- NOTE | 2023-05-19 11:28 | EEG ---
DATE OF SERVICE: 05/19/2023 ELECTROENCEPHALOGRAM REPORT PREAMBLE: This is a 68-year-old male with episode of altered mental status. This study is performed to rule out any epileptiform activity. EEG FINDINGS: This is a 21-channel digital EEG recorded with video component, utilizing 10/20 international system with referential and bipolar montages. The patient was probably slightly awake during early part of the study, in which there was presence of background, consisting of mixed frequencies of some alpha and theta frequency seen in posterior head region. Background seems to be slightly reactive to eye opening and closing. The patient soon became drowsy and then in stage 2 sleep during most of the study with presence of diffuse delta and theta waves in bihemispheric region. Sleep spindles and vertex waves were seen. No focal or generalized epileptiform activity was seen. Photic stimulation was not performed. IMPRESSION: This is an abnormal EEG due to background slowing of [id number] degree, suggestive of encephalopathy. No epileptiform activity was seen. MMODL / IJN: [id number] / [facility]ITAL[facility]il[facility]
--- NOTE | 2023-05-19 11:28 | PN ---
PROGRESS NOTE SUBJECTIVE: Mr. [place] is in sinus rhythm. He is having his dialysis today. His urine output is very limited. Hemodynamically stable. OBJECTIVE: VITAL SIGNS: Stable. NECK: JVD 1 cm. HEART: S1-S2 heard normally. Short systolic murmur at left sternal border. LUNGS: Revealed fair air entry. ABDOMEN: Unchanged. LOWER EXTREMITIES: Unchanged. PLAN: Prognosis remains guarded. Dialysis will be started soon and plan is to take 1 L out today. MMODL / IJN: [id number] /
[2023-05-19] MEDS: INSULIN ASPART (NovoLOG) 100 UNIT/ML VIAL SQ SCH ×3 (11:29→20:13)
--- NOTE | 2023-05-19 11:42 | P.PN ---
Subjective Progress Note Date: 05/19/23 This is a 68-year-old male patient with a known history of coronary artery disease, hypertension, hyperlipidemia, diabetes mellitus, benign prostatic hyperplasia, pulmonary embolism anticoagulated with Eliquis. He also has a history of COVID-19 infection and subsequent CVA felt to be secondary to hyperco agulability. In March 2023 at undergone cardiac catheterization that revealed a chronic total occlusion of the right coronary artery which fills by collaterals circulation, chronic total occlusion of the mid LAD by the bifurcation of the large diagonal branch with flush occlusion. The LAD fills by ipsilateral collaterals. He was recommended coronary artery bypass grafting. Echocardiogram revealed moderate LV dysfunction with ejection fraction of 40- 45%. He was brought in today for an elective surgery. He had undergone an off- pump coronary artery bypass grafting 2 with the left internal thoracic artery to the left anterior descending artery, saphenous vein graft from the aorta to the posterior descending artery. Left atrial appendage ligation with a 35mm Atriclip. He is seen postoperatively in the intensive care unit. He is intubated on the mechanical ventilator and assist control mode with a rate of 14, tidal volume 500, FiO2 50% and a PEEP of 10. Initial arterial blood gases revealed a PaO2 of 387, P CO2 of 41 and a pH of 7.31 on 100% FiO2. Sodium 137. Potassium 4.3. Bicarb 20. BUN 39. Creatinine 2.33. Glucose 154. Calcium 7.9. Magnesium 2.4. AST 21. ALT 16. Albumin 3.0. He is currently on dopamine at 2 mcg/kg/m. Milrinone at 0.3 mcg/kg/m. Norepinephrine at 0.06 mcg/kg/m propofol currently on hold. Insulin drip at 6 units per hour. Lactated Ringer's at 50 MLS per hour. PA pressure 43/19. Cardiac output 5.9. Cardiac index 2.8. Backup pacing at a rate of 50 bpm. Right and left pleural chest tubes in place with a small leak. Mediastinal chest tubes 2. Just x-ray reveals postsurgical changes. Bilateral chest tubes without evidence of sizable pneumothorax. Oriental-Misha catheter, mediastinal drain, endotracheal and gastric tube secured in place. Patient was reevaluated today on 05/14/2023, patient is doing well, he is postoperative day #1, patient is requiring multiple drips including dopamine at 3 mcg/kg/m, norepinephrine at 0.02 mcg/kg/m, he is on insulin at 4 units per hour, and lactated Ringer's at 40 mL per hour. Cardiac index is 2.2. Cardiac output is 4.5. Urine output is marginal between 15-20 mL per hour. Patient is on 1 L nasal cannula, does not seem to be in distress, sitting at a bedside chair. Chest x-ray showed minimal basilar atelectasis and small pleural effusions with cardiomegaly and postoperative changes. WBC count is 12.9 hemoglobin is 10.7. Basic metabolic profile is normal however his BUN is 43 creatinine is rising up to 2.83, baseline yesterday was 2.33. Patient is achieving about 1000 mL via incentive spirometry Reevaluated today on 05/15/2023, patient is sitting up at the bedside chair, awake, oriented 3, does not seem to be in any distress. Patient is on 2 L nasal cannula, O2 sats is 94%, remains on dopamine drip at 3 mcg/kg/m, his urine output remains marginal and poor, however the patient's creatinine jumped up significantly over the last 24 hours, I believe the patient may have developed acute tubular necrosis from hypotension, nonetheless clinically the patient is doing better than expected. He was seen by nephrology for his renal failure.pleural and mediastinal chest tubes noted, remain in place, Nelson catheter remains in place. Labs were reviewed today, creatinine is up to 4.03 BUN is 48. Hemoglobin is 9.9. WBC count is 15.3.chest x-ray showed mostly postsurgical changes and bilateral chest tubes without evidence of any pneumothorax. Small right-sided pleural effusion is noted. Patient was reevaluated today on 05/16/2023, doing well from the pulmonary perspective, but doing poorly from the renal perspective. Patient continues to develop worsening renal failure, being followed by nephrology, and I believe the patient may be heading towards hemodialysis. Creatinine is up to 5.9 this morning. Bicarb is low. Patient remains on dopamine at 3 mcg/kg/m with very poor urine output. Chest x-ray is showing postsurgical changes and small right- sided pleural effusion no pneumothorax, no evidence of pneumonia . Bicarb is low, creatinine is high, but sugar is 200, his ventricular epicardial pacemaker wires were removed yesterday. Mediastinal chest tube was removed yesterday, continues to have right IJ Cordis in place, and continues to have CVP monitoring. CVP today is 6. Right-sided and left-sided pleural chest tubes remain in place. Nelson catheter remains in place. Patient had only 120 mL of urine output in the last 8 hours. And about 400 in the last 24 hours. The patient is seen today 05/17/2023 in follow-up in the intensive care unit. He is currently sitting up in bed. Awake and alert in no acute distress. Postoperative day #4. He is maintaining O2 saturations in the 90s on 4 L/m per nasal cannula. He has normal saline at KVO. Dopamine drip at 3 mcg/kg/min. Insulin drip at 11 units per hour. D5W with 3 A of sodium bicarb at 75 ML's per hour. Lasix drip at 20 mg per hour. He is oliguric. He did receive a right femoral temporary hemodialysis catheter placed last evening. Plan is for hemodialysis today. White count 13.0. Hemoglobin 7.7. Platelets 140. Sodium 132. Potassium 4.1. Bicarb 21. BUN 67. Creatinine 7.33. Glucose 226. Arterial blood gases revealed a pO2 of 87, pCO2 35. PH 7.42. Left pleural chest tube remains in place to wall suction. No significant leak noted. Right internal Cordis in place. Right radial art line in place. As x-ray reveals no evidence of pneumothorax. Mild cardiomegaly and a right pleural effusion. Continues to work with the incentive spirometer. Continued on bronchodilators. The patient is seen today 05/18/2023 in follow-up in the intensive care unit. He is currently resting in bed. Awake and alert. Postoperative day #5. He is currently maintaining O2 saturations in the 90s on 7 L high flow nasal cannula. Blood gases revealed a PaO2 of 74, pCO2 34 and a pH of 7.39. He remains on lactated Ringer's at KVO. Insulin drip at 4.5 units per hour. Norepinephrine is currently on hold. Ultrasound of the chest is pending. He is status post 2 units of packed red blood cells this admission. Current hemoglobin 7.7. Platelets 130,000. White count 9.0. Sodium 135. Potassium 3.5. Bicarb 20. BUN 50. Creatinine 6.50. Glucose 98. AST to 55. ALT 19. Hepatitis B screen negative. He did not tolerate hemodialysis yesterday. To be attempted again today. Echocardiogram revealed moderately impaired left ventricular systolic function and small pericardial effusion. Computed tomography scan of the brain revealed no acute intracranial process. Current CVP of 10 mmHg. He did have a T-max of 101.3 early this morning. Currently afebrile. Urine culture revealed no growth. Sputum culture pending. Currently on vancomycin. The patient is seen today 05/19/2023 in follow-up in the intensive care unit. He is currently sitting up in bed. Awake, alert, confused, slow to respond. Weak. EEG reveals background slowing of mild to moderate degree suggestive of encephalopathy. Continues to maintain good O2 saturations in the 90s on 3 L/m per nasal cannula. Ultrasound of the chest revealed no significant fluid for thoracentesis. He is receiving hemodialysis today. Yesterday they removed 500 ML's and hoping for thousand today. He is on norepinephrine at 0.02 mcg/kg/m. 0.9 normal saline at 20 ML's per hour. Insulin drip currently on hold. He is on antibiotics in the form of vancomycin and cefepime. He remains on bronchodilators. Working with the incentive spirometer. Continued on oral amiodarone. Anticoagulated with Eliquis. He is status post 2 units of packed red blood cells this admission. Current hemoglobin 7.7. Platelets 147. White count 8.4. Sodium 134. Potassium 3.9. Bicarb 34. BUN 36. Creatinine 5.26. Glucose 155. AST 257. ALT 43. Objective - Vital Signs Vital signs: Vital Signs Temp 99.0 F 05/19/23 08:00 Pulse 70 05/19/23 11:00 Resp 22 05/19/23 11:00 BP 109/54 05/19/23 11:00 Pulse Ox 97 05/19/23 11:00 FiO2 50 05/13/23 15:13 Intake & Output 05/18/23 05/19/23 05/19/23 18:59 06:59 18:59 Intake Total 1815.943 324.851 217.390 Output Total 1113 119 46 Balance 702.943 205.851 171.390 Weight 116.5 kg Intake: IV 912 292 130 Cefepime 0.5 gm In Sodium 50 Chloride 0.9% 50 ml @ 12 .5 mls/hr IVPB Q24HR [facility] Rx#:[id number] Potassium Chloride 20 meq 100 In Water For Injection 1 100ml.bag @ 50 mls/hr IVPB ONCE STA Rx#: [id number] Sodium Chloride 0.9% 500 190 220 100 ml 500 ml @ 20 mls/hr IV .Q24H [facility] Rx#:[id number] Vancomycin 1,750 mg In 500 Sodium Chloride 0.9% 500 ml 500 ml @ 167 mls/hr IVPB ONCE ONE Rx#: [id number] pressure bags 72 72 30 Intake, IV Titration 103.943 32.851 87.390 Amount Insulin Regular 100 unit 37.808 32.851 9.848 In Sodium Chloride 0.9% 100 ml @ Per Protocol IV .Q0M [facility] Rx#:[id number] Norepinephrine 4 mg In 66.135 77.542 Sodium Chloride 0.9% 250 ml @ 0.03 MCG/KG/MIN 12. 996 mls/hr IV .[id number] [facility] Rx#:[id number] Oral 300 Hemodialysis 500 Output: Chest Tube Drainage 60 70 30 Pleural Catheter Left 60 70 30 Urine 53 49 16 Hemodialysis 1000 Other: Voiding Method Indwelling Catheter Indwelling Catheter Indwelling Catheter # Bowel Movements 1 ABP, PAP, CO, CI - Last Documented Arterial Blood Pressure 107/47 Pulmonary Artery Pressure 29/9 Cardiac Output 4.5 Cardiac Index 2.2 - Exam GENERAL EXAM: Alert, oriented 2, confused at times 68-year-old male, on 3 L high flow nasal cannula, fairly comfortable, in no apparent distress. HEAD: Normocephalic. EYES: Normal reaction of pupils, equal size. NOSE: Clear with pink turbinates. THROAT: No erythema or exudates. NECK: Right IJ Cordis in place. No masses, no JVD. CHEST: Sternal dressing dry and intact. Heart hugger in place. Left pleural chest tube in place to wall suction. No leak. LUNGS: Equal air entry with crackles in the right lung base. CVS: S1 and S2 normal with no audible murmur, regular rhythm. ABDOMEN: No hepatosplenomegaly, normal bowel sounds, no guarding or rigidity. SPINE: No scoliosis or deformity SKIN: No rashes CENTRAL NERVOUS SYSTEM: No focal deficits, tone is normal in all 4 extremities. EXTREMITIES: Right femoral hemodialysis catheter in place. SCDs in place. Right radial arterial line in place. Peripheral pulses are intact. - Labs CBC & Chem 7: 05/19/23 04:26 05/19/23 04:26 Labs: Abnormal Lab Results - Last 24 Hours (Table) 05/18/23 05/18/23 05/18/23 Range/Units 12:58 14:06 14:40 RBC (4.30-5.90) m/uL Hgb (13.0-17.5) gm/dL Hct (39.0-53.0) % Plt Count (150-450) k/uL Lymphocytes # (1.0-4.8) k/uL Sodium (137-145) mmol/L BUN (9-20) mg/dL Creatinine (0.66-1.25) mg/dL Glucose (74-99) mg/dL POC Glucose (mg/dL) 131 H 154 H (70-110) mg/dL Calcium (8.4-10.2) mg/dL AST (17-59) U/L Alkaline Phosphatase (38-126) U/L Total Protein (6.3-8.2) g/dL Albumin (3.5-5.0) g/dL Urine Protein 3+ H (Negative) Urine Glucose (UA) 1+ H (Negative) Urine Blood Large H (Negative) Ur Leukocyte Esterase Large H (Negative) Urine RBC >182 H (0-5) /hpf Urine WBC 50 H (0-5) /hpf Ur Squamous Epith Cells 10 H (0-4) /hpf Ur Transition Epith Cell 10 H (0-1) /hpf Urine Bacteria Rare H (None) /hpf 05/18/23 05/18/23 05/18/23 Range/Units 16:12 17:12 18:16 RBC (4.30-5.90) m/uL Hgb (13.0-17.5) gm/dL Hct (39.0-53.0) % Plt Count (150-450) k/uL Lymphocytes # (1.0-4.8) k/uL Sodium (137-145) mmol/L BUN (9-20) mg/dL Creatinine (0.66-1.25) mg/dL Glucose (74-99) mg/dL POC Glucose (mg/dL) 136 H 136 H 173 H (70-110) mg/dL Calcium (8.4-10.2) mg/dL AST (17-59) U/L Alkaline Phosphatase (38-126) U/L Total Protein (6.3-8.2) g/dL Albumin (3.5-5.0) g/dL Urine Protein (Negative) Urine Glucose (UA) (Negative) Urine Blood (Negative) Ur Leukocyte Esterase (Negative) Urine RBC (0-5) /hpf Urine WBC (0-5) /hpf Ur Squamous Epith Cells (0-4) /hpf Ur Transition Epith Cell (0-1) /hpf Urine Bacteria (None) /hpf 05/18/23 05/18/23 05/18/23 Range/Units 19:06 19:56 21:03 RBC (4.30-5.90) m/uL Hgb (13.0-17.5) gm/dL Hct (39.0-53.0) % Plt Count (150-450) k/uL Lymphocytes # (1.0-4.8) k/uL Sodium (137-145) mmol/L BUN (9-20) mg/dL Creatinine (0.66-1.25) mg/dL Glucose (74-99) mg/dL POC Glucose (mg/dL) 141 H 133 H 137 H (70-110) mg/dL Calcium (8.4-10.2) mg/dL AST (17-59) U/L Alkaline Phosphatase (38-126) U/L Total Protein (6.3-8.2) g/dL Albumin (3.5-5.0) g/dL Urine Protein (Negative) Urine Glucose (UA) (Negative) Urine Blood (Negative) Ur Leukocyte Esterase (Negative) Urine RBC (0-5) /hpf Urine WBC (0-5) /hpf Ur Squamous Epith Cells (0-4) /hpf Ur Transition Epith Cell (0-1) /hpf Urine Bacteria (None) /hpf 05/19/23 05/19/23 05/19/23 Range/Units 00:13 00:59 01:57 RBC (4.30-5.90) m/uL Hgb (13.0-17.5) gm/dL Hct (39.0-53.0) % Plt Count (150-450) k/uL Lymphocytes # (1.0-4.8) k/uL Sodium (137-145) mmol/L BUN (9-20) mg/dL Creatinine (0.66-1.25) mg/dL Glucose (74-99) mg/dL POC Glucose (mg/dL) 125 H 176 H 112 H (70-110) mg/dL Calcium (8.4-10.2) mg/dL AST (17-59) U/L Alkaline Phosphatase (38-126) U/L Total Protein (6.3-8.2) g/dL Albumin (3.5-5.0) g/dL Urine Protein (Negative) Urine Glucose (UA) (Negative) Urine Blood (Negative) Ur Leukocyte Esterase (Negative) Urine RBC (0-5) /hpf Urine WBC (0-5) /hpf Ur Squamous Epith Cells (0-4) /hpf Ur Transition Epith Cell (0-1) /hpf Urine Bacteria (None) /hpf 05/19/23 05/19/23 05/19/23 Range/Units 03:09 04:12 04:26 RBC (4.30-5.90) m/uL Hgb (13.0-17.5) gm/dL Hct (39.0-53.0) % Plt Count (150-450) k/uL Lymphocytes # (1.0-4.8) k/uL Sodium 134 L (137-145) mmol/L BUN 36 H (9-20) mg/dL Creatinine 5.26 H (0.66-1.25) mg/dL Glucose 116 H (74-99) mg/dL POC Glucose (mg/dL) 120 H 120 H (70-110) mg/dL Calcium 7.6 L (8.4-10.2) mg/dL AST 257 H (17-59) U/L Alkaline Phosphatase 135 H (38-126) U/L Total Protein 4.8 L (6.3-8.2) g/dL Albumin 2.4 L (3.5-5.0) g/dL Urine Protein (Negative) Urine Glucose (UA) (Negative) Urine Blood (Negative) Ur Leukocyte Esterase (Negative) Urine RBC (0-5) /hpf Urine WBC (0-5) /hpf Ur Squamous Epith Cells (0-4) /hpf Ur Transition Epith Cell (0-1) /hpf Urine Bacteria (None) /hpf 05/19/23 05/19/23 05/19/23 Range/Units 04:26 06:08 07:04 RBC 2.61 L (4.30-5.90) m/uL Hgb 7.7 L (13.0-17.5) gm/dL Hct 23.8 L (39.0-53.0) % Plt Count 147 L (150-450) k/uL Lymphocytes # 0.8 L (1.0-4.8) k/uL Sodium (137-145) mmol/L BUN (9-20) mg/dL Creatinine (0.66-1.25) mg/dL Glucose (74-99) mg/dL POC Glucose (mg/dL) 120 H 113 H (70-110) mg/dL Calcium (8.4-10.2) mg/dL AST (17-59) U/L Alkaline Phosphatase (38-126) U/L Total Protein (6.3-8.2) g/dL Albumin (3.5-5.0) g/dL Urine Protein (Negative) Urine Glucose (UA) (Negative) Urine Blood (Negative) Ur Leukocyte Esterase (Negative) Urine RBC (0-5) /hpf Urine WBC (0-5) /hpf Ur Squamous Epith Cells (0-4) /hpf Ur Transition Epith Cell (0-1) /hpf Urine Bacteria (None) /hpf 05/19/23 05/19/23 05/19/23 Range/Units 08:13 08:57 10:21 RBC (4.30-5.90) m/uL Hgb (13.0-17.5) gm/dL Hct (39.0-53.0) % Plt Count (150-450) k/uL Lymphocytes # (1.0-4.8) k/uL Sodium (137-145) mmol/L BUN (9-20) mg/dL Creatinine (0.66-1.25) mg/dL Glucose (74-99) mg/dL POC Glucose (mg/dL) 134 H 158 H 177 H (70-110) mg/dL Calcium (8.4-10.2) mg/dL AST (17-59) U/L Alkaline Phosphatase (38-126) U/L Total Protein (6.3-8.2) g/dL Albumin (3.5-5.0) g/dL Urine Protein (Negative) Urine Glucose (UA) (Negative) Urine Blood (Negative) Ur Leukocyte Esterase (Negative) Urine RBC (0-5) /hpf Urine WBC (0-5) /hpf Ur Squamous Epith Cells (0-4) /hpf Ur Transition Epith Cell (0-1) /hpf Urine Bacteria (None) /hpf 05/19/23 Range/Units 11:10 RBC (4.30-5.90) m/uL Hgb (13.0-17.5) gm/dL Hct (39.0-53.0) % Plt Count (150-450) k/uL Lymphocytes # (1.0-4.8) k/uL Sodium (137-145) mmol/L BUN (9-20) mg/dL Creatinine (0.66-1.25) mg/dL Glucose (74-99) mg/dL POC Glucose (mg/dL) 155 H (70-110) mg/dL Calcium (8.4-10.2) mg/dL AST (17-59) U/L Alkaline Phosphatase (38-126) U/L Total Protein (6.3-8.2) g/dL Albumin (3.5-5.0) g/dL Urine Protein (Negative) Urine Glucose (UA) (Negative) Urine Blood (Negative) Ur Leukocyte Esterase (Negative) Urine RBC (0-5) /hpf Urine WBC (0-5) /hpf Ur Squamous Epith Cells (0-4) /hpf Ur Transition Epith Cell (0-1) /hpf Urine Bacteria (None) /hpf Microbiology - Last 24 Hours (Table) 05/17/23 08:15 Gram Stain - Final Sputum Sputum Culture - Final 05/18/23 08:30 Gram Stain - Preliminary Sputum Assessment and Plan Assessment: Coronary artery disease status post off-pump coronary artery bypass grafting 2 with a left internal thoracic artery to the left anterior descending artery, saphenous vein graft from the aorta to the posterior descending artery. Left atrial appendage ligation. Postoperative day #6. Acute kidney injury requiring hemodialysis History of chronic kidney disease, stage IV Febrile illness, cultures pending, currently on vancomycin Ischemic cardiomyopathy with ejection fraction 40-45% History of pulmonary embolism previously on Eliquis Diabetes mellitus Hypertension CVA BPH Hyperlipidemia Previous COVID-19 infection Plan: The patient was seen and evaluated Chest x-ray, labs and medications reviewed Ultrasound of the chest did not reveal any significant fluid Will be trying hemodialysis again today 500 MLS removed yesterday, plan is for 1000 mls today Norepinephrine Libby on 0.02 mcg/kg/m Insulin drip currently on hold Continue bronchodilators, vancomycin, cefepime Titrate the FiO2 as tolerated We will continue to follow I have personally seen and examined the patient, performed the documentation and the assessment and plan as written. Number of minutes spent on the visit: 10.
--- NOTE | 2023-05-19 11:49 | P.PN ---
Subjective Patient is seen in follow-up for acute kidney injury on chronic kidney disease. Currently seeing while undergoing hemodialysis. Remains oliguric. Off dopamine. On Levophed. Oral intake has been fair. Vital signs are stable. On Levophed. General: Resting in bed. Lethargic. HEENT: On nasal cannula. LUNGS: No audible rhonchi or wheezes. HEART: Regular rate and rhythm. ABDOMEN: No distention. Obese. EXTREMITITES: 1+ edema. Objective - Vital Signs Vital signs: Vital Signs Temp 99.0 F 05/19/23 08:00 Pulse 70 05/19/23 11:00 Resp 22 05/19/23 11:00 BP 109/54 05/19/23 11:00 Pulse Ox 97 05/19/23 11:00 FiO2 50 05/13/23 15:13 Intake & Output 05/18/23 05/19/23 05/19/23 18:59 06:59 18:59 Intake Total 1815.943 324.851 250.024 Output Total 1113 119 46 Balance 702.943 205.851 204.024 Weight 116.5 kg Intake: IV 912 292 130 Cefepime 0.5 gm In Sodium 50 Chloride 0.9% 50 ml @ 12 .5 mls/hr IVPB Q24HR [facility] Rx#:[id number] Potassium Chloride 20 meq 100 In Water For Injection 1 100ml.bag @ 50 mls/hr IVPB ONCE STA Rx#: [id number] Sodium Chloride 0.9% 500 190 220 100 ml 500 ml @ 20 mls/hr IV .Q24H [facility] Rx#:[id number] Vancomycin 1,750 mg In 500 Sodium Chloride 0.9% 500 ml 500 ml @ 167 mls/hr IVPB ONCE ONE Rx#: [id number] pressure bags 72 72 30 Intake, IV Titration 103.943 32.851 120.024 Amount Insulin Regular 100 unit 37.808 32.851 9.848 In Sodium Chloride 0.9% 100 ml @ Per Protocol IV .Q0M [facility] Rx#:[id number] Norepinephrine 4 mg In 66.135 110.176 Sodium Chloride 0.9% 250 ml @ 0.03 MCG/KG/MIN 12. 996 mls/hr IV .[id number] [facility] Rx#:[id number] Oral 300 Hemodialysis 500 Output: Chest Tube Drainage 60 70 30 Pleural Catheter Left 60 70 30 Urine 53 49 16 Hemodialysis 1000 Other: Voiding Method Indwelling Catheter Indwelling Catheter Indwelling Catheter # Bowel Movements 1 ABP, PAP, CO, CI - Last Documented Arterial Blood Pressure 107/47 Pulmonary Artery Pressure 29/9 Cardiac Output 4.5 Cardiac Index 2.2 - Labs CBC & Chem 7: 05/19/23 04:26 05/19/23 04:26 Labs: Abnormal Lab Results - Last 24 Hours (Table) 05/18/23 05/18/23 05/18/23 Range/Units 12:58 14:06 14:40 RBC (4.30-5.90) m/uL Hgb (13.0-17.5) gm/dL Hct (39.0-53.0) % Plt Count (150-450) k/uL Lymphocytes # (1.0-4.8) k/uL Sodium (137-145) mmol/L BUN (9-20) mg/dL Creatinine (0.66-1.25) mg/dL Glucose (74-99) mg/dL POC Glucose (mg/dL) 131 H 154 H (70-110) mg/dL Calcium (8.4-10.2) mg/dL AST (17-59) U/L Alkaline Phosphatase (38-126) U/L Total Protein (6.3-8.2) g/dL Albumin (3.5-5.0) g/dL Urine Protein 3+ H (Negative) Urine Glucose (UA) 1+ H (Negative) Urine Blood Large H (Negative) Ur Leukocyte Esterase Large H (Negative) Urine RBC >182 H (0-5) /hpf Urine WBC 50 H (0-5) /hpf Ur Squamous Epith Cells 10 H (0-4) /hpf Ur Transition Epith Cell 10 H (0-1) /hpf Urine Bacteria Rare H (None) /hpf 05/18/23 05/18/23 05/18/23 Range/Units 16:12 17:12 18:16 RBC (4.30-5.90) m/uL Hgb (13.0-17.5) gm/dL Hct (39.0-53.0) % Plt Count (150-450) k/uL Lymphocytes # (1.0-4.8) k/uL Sodium (137-145) mmol/L BUN (9-20) mg/dL Creatinine (0.66-1.25) mg/dL Glucose (74-99) mg/dL POC Glucose (mg/dL) 136 H 136 H 173 H (70-110) mg/dL Calcium (8.4-10.2) mg/dL AST (17-59) U/L Alkaline Phosphatase (38-126) U/L Total Protein (6.3-8.2) g/dL Albumin (3.5-5.0) g/dL Urine Protein (Negative) Urine Glucose (UA) (Negative) Urine Blood (Negative) Ur Leukocyte Esterase (Negative) Urine RBC (0-5) /hpf Urine WBC (0-5) /hpf Ur Squamous Epith Cells (0-4) /hpf Ur Transition Epith Cell (0-1) /hpf Urine Bacteria (None) /hpf 05/18/23 05/18/23 05/18/23 Range/Units 19:06 19:56 21:03 RBC (4.30-5.90) m/uL Hgb (13.0-17.5) gm/dL Hct (39.0-53.0) % Plt Count (150-450) k/uL Lymphocytes # (1.0-4.8) k/uL Sodium (137-145) mmol/L BUN (9-20) mg/dL Creatinine (0.66-1.25) mg/dL Glucose (74-99) mg/dL POC Glucose (mg/dL) 141 H 133 H 137 H (70-110) mg/dL Calcium (8.4-10.2) mg/dL AST (17-59) U/L Alkaline Phosphatase (38-126) U/L Total Protein (6.3-8.2) g/dL Albumin (3.5-5.0) g/dL Urine Protein (Negative) Urine Glucose (UA) (Negative) Urine Blood (Negative) Ur Leukocyte Esterase (Negative) Urine RBC (0-5) /hpf Urine WBC (0-5) /hpf Ur Squamous Epith Cells (0-4) /hpf Ur Transition Epith Cell (0-1) /hpf Urine Bacteria (None) /hpf 05/19/23 05/19/23 05/19/23 Range/Units 00:13 00:59 01:57 RBC (4.30-5.90) m/uL Hgb (13.0-17.5) gm/dL Hct (39.0-53.0) % Plt Count (150-450) k/uL Lymphocytes # (1.0-4.8) k/uL Sodium (137-145) mmol/L BUN (9-20) mg/dL Creatinine (0.66-1.25) mg/dL Glucose (74-99) mg/dL POC Glucose (mg/dL) 125 H 176 H 112 H (70-110) mg/dL Calcium (8.4-10.2) mg/dL AST (17-59) U/L Alkaline Phosphatase (38-126) U/L Total Protein (6.3-8.2) g/dL Albumin (3.5-5.0) g/dL Urine Protein (Negative) Urine Glucose (UA) (Negative) Urine Blood (Negative) Ur Leukocyte Esterase (Negative) Urine RBC (0-5) /hpf Urine WBC (0-5) /hpf Ur Squamous Epith Cells (0-4) /hpf Ur Transition Epith Cell (0-1) /hpf Urine Bacteria (None) /hpf 05/19/23 05/19/23 05/19/23 Range/Units 03:09 04:12 04:26 RBC (4.30-5.90) m/uL Hgb (13.0-17.5) gm/dL Hct (39.0-53.0) % Plt Count (150-450) k/uL Lymphocytes # (1.0-4.8) k/uL Sodium 134 L (137-145) mmol/L BUN 36 H (9-20) mg/dL Creatinine 5.26 H (0.66-1.25) mg/dL Glucose 116 H (74-99) mg/dL POC Glucose (mg/dL) 120 H 120 H (70-110) mg/dL Calcium 7.6 L (8.4-10.2) mg/dL AST 257 H (17-59) U/L Alkaline Phosphatase 135 H (38-126) U/L Total Protein 4.8 L (6.3-8.2) g/dL Albumin 2.4 L (3.5-5.0) g/dL Urine Protein (Negative) Urine Glucose (UA) (Negative) Urine Blood (Negative) Ur Leukocyte Esterase (Negative) Urine RBC (0-5) /hpf Urine WBC (0-5) /hpf Ur Squamous Epith Cells (0-4) /hpf Ur Transition Epith Cell (0-1) /hpf Urine Bacteria (None) /hpf 05/19/23 05/19/23 05/19/23 Range/Units 04:26 06:08 07:04 RBC 2.61 L (4.30-5.90) m/uL Hgb 7.7 L (13.0-17.5) gm/dL Hct 23.8 L (39.0-53.0) % Plt Count 147 L (150-450) k/uL Lymphocytes # 0.8 L (1.0-4.8) k/uL Sodium (137-145) mmol/L BUN (9-20) mg/dL Creatinine (0.66-1.25) mg/dL Glucose (74-99) mg/dL POC Glucose (mg/dL) 120 H 113 H (70-110) mg/dL Calcium (8.4-10.2) mg/dL AST (17-59) U/L Alkaline Phosphatase (38-126) U/L Total Protein (6.3-8.2) g/dL Albumin (3.5-5.0) g/dL Urine Protein (Negative) Urine Glucose (UA) (Negative) Urine Blood (Negative) Ur Leukocyte Esterase (Negative) Urine RBC (0-5) /hpf Urine WBC (0-5) /hpf Ur Squamous Epith Cells (0-4) /hpf Ur Transition Epith Cell (0-1) /hpf Urine Bacteria (None) /hpf 05/19/23 05/19/23 05/19/23 Range/Units 08:13 08:57 10:21 RBC (4.30-5.90) m/uL Hgb (13.0-17.5) gm/dL Hct (39.0-53.0) % Plt Count (150-450) k/uL Lymphocytes # (1.0-4.8) k/uL Sodium (137-145) mmol/L BUN (9-20) mg/dL Creatinine (0.66-1.25) mg/dL Glucose (74-99) mg/dL POC Glucose (mg/dL) 134 H 158 H 177 H (70-110) mg/dL Calcium (8.4-10.2) mg/dL AST (17-59) U/L Alkaline Phosphatase (38-126) U/L Total Protein (6.3-8.2) g/dL Albumin (3.5-5.0) g/dL Urine Protein (Negative) Urine Glucose (UA) (Negative) Urine Blood (Negative) Ur Leukocyte Esterase (Negative) Urine RBC (0-5) /hpf Urine WBC (0-5) /hpf Ur Squamous Epith Cells (0-4) /hpf Ur Transition Epith Cell (0-1) /hpf Urine Bacteria (None) /hpf 05/19/23 Range/Units 11:10 RBC (4.30-5.90) m/uL Hgb (13.0-17.5) gm/dL Hct (39.0-53.0) % Plt Count (150-450) k/uL Lymphocytes # (1.0-4.8) k/uL Sodium (137-145) mmol/L BUN (9-20) mg/dL Creatinine (0.66-1.25) mg/dL Glucose (74-99) mg/dL POC Glucose (mg/dL) 155 H (70-110) mg/dL Calcium (8.4-10.2) mg/dL AST (17-59) U/L Alkaline Phosphatase (38-126) U/L Total Protein (6.3-8.2) g/dL Albumin (3.5-5.0) g/dL Urine Protein (Negative) Urine Glucose (UA) (Negative) Urine Blood (Negative) Ur Leukocyte Esterase (Negative) Urine RBC (0-5) /hpf Urine WBC (0-5) /hpf Ur Squamous Epith Cells (0-4) /hpf Ur Transition Epith Cell (0-1) /hpf Urine Bacteria (None) /hpf Microbiology - Last 24 Hours (Table) 05/17/23 08:15 Gram Stain - Final Sputum Sputum Culture - Final 05/18/23 08:30 Gram Stain - Preliminary Sputum Assessment and Plan Plan: Assessment: 1. Acute kidney injury secondary to hemodynamic ATN. Creatinine 7.3 dated 05/17/2023. Oliguric. Started on hemodialysis 05/17/2023. No hydronephrosis noted on kidney ultrasound. 2. A. fib with RVR maintained on amiodarone and Lopressor. 3. 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 4. Metabolic acidosis secondary to acute kidney injury s/p bicarbonate drip. Improved post postdialysis. 5. Cardiomyopathy. Ejection fraction of 40-45%. 6. Chronic kidney disease stage IV with baseline creatinine near 2. Suspect underlying diabetic kidney disease. 7. Diabetes mellitus. Plan: Currently seen while undergoing hemodialysis. No response to IV Lasix given 05/18/2023. Phosphorus 3.3 dated 05/17/2023. Continue to monitor renal function and urine output. Monitor for renal recovery. Wean Levophed. Monitor vancomycin levels. Dose to be adjusted for renal function. Check a.m. cortisol level.
[2023-05-19] MEDS: CEFEPIME 0.5 GM in SODIUM CHLORIDE 0.9% 50 ML IVPB SCH (13:56)
[2023-05-19] MEDS: SODIUM CHLORIDE 0.9% 500 ML 500 ML IV SCH (13:58)
[2023-05-19] MEDS: SODIUM BICARBONATE TAB 650 MG TAB PO SCH ×2 (14:09→20:12)
[2023-05-19] MEDS: METOPROLOL TARTRATE 12.5 MG TAB PO SCH ×2 (14:09→20:12)
[2023-05-19] MEDS: ASPIRIN 81 MG PO SCH (14:09)
[2023-05-19 16:53] LABS: Glucose,Whole Blood 181 mg/dL (70-110)
[2023-05-19 20:02] LABS: Glucose,Whole Blood 285 mg/dL (70-110)
[2023-05-19 23:49] LABS: Glucose,Whole Blood 224 mg/dL (70-110)
[2023-05-20 05:33] LABS: HCT 26.4 % (39.0-53.0); HGB 8.7 gm/dL (13.0-17.5); MCH 30.8 pg (25.0-35.0); MCHC 33.1 g/dL (31.0-37.0); MCV 93.1 fL (80.0-100.0); Mean Platelet Volume 8.8; Platelet Count 151 k/uL (150-450); RBC 2.83 m/uL (4.30-5.90); RDW 15.4 % (11.5-15.5); WBC 9.2 k/uL (3.8-10.6)
[2023-05-20 05:45] LABS: ALT 28 U/L (4-49); AST 207 U/L (17-59); African American GFR (CKD) 14 (>60 ml/min/1.73 sqM); Albumin 2.3 g/dL (3.5-5.0); Alkaline Phosphatase 157 U/L (38-126); Anion Gap 10 mmol/L; Blood Urea Nitrogen 40 mg/dL (9-20); Calcium 6.9 mg/dL (8.4-10.2); Carbon Dioxide 26 mmol/L (22-30); Chloride 98 mmol/L (98-107); Glucose 203 mg/dL (74-99); Non-African American GFR(CKD) 12 (>60 ml/min/1.73 sqM); Phosphorus 4.5 mg/dL (2.5-4.5); Potassium 3.8 mmol/L (3.5-5.1); Sodium 134 mmol/L (137-145); Total Bilirubin 1.2 mg/dL (0.2-1.3); Total Protein 4.7 g/dL (6.3-8.2)
[2023-05-20] MEDS ORDERED: POTASSIUM CHLORIDE ER 10 MEQ TAB.ER.PRT PO STA (06:06)
[2023-05-20 06:14] LABS: Glucose,Whole Blood 233 mg/dL (70-110)
[2023-05-20] MEDS: MIDODRINE 5 MG TAB PO SCH ×3 (06:30→16:51)
[2023-05-20] MEDS: PANTOPRAZOLE 40 MG TABLET PO SCH (06:30)
[2023-05-20] MEDS: INSULIN ASPART (NovoLOG) 100 UNIT/ML VIAL SQ SCH ×6 (06:30→20:19)
[2023-05-20] MEDS ORDERED: INSULIN DETEMIR (LEVEMIR) 100 UNIT/ML SYR SQ SCH (07:00)
[2023-05-20] MEDS: IPRATROPIUM-ALBUTEROL 3 ML NEB INHALATION SCH ×4 (08:14→19:58)
--- NOTE | 2023-05-20 09:31 | P.PN ---
Subjective Progress Note Date: 05/20/23 Principal diagnosis: Two-vessel coronary artery disease. Past medical history significant for nonischemic cardiomyopathy with an ejection fraction of 25-30% which improved to an ejection fraction of 45-50% with intense medical therapy, history of left ventricular thrombus on transthoracic 2-D echocardiogram completed on 05/23/2023 which was organized and did did not appear acute, history of pulmonary embolus on eliquis on an outpatient basis, hypertension, diabetes mellitus, history of CVA with some residual right-sided weakness, COVID-19 infection in early 2021, acute on chronic kidney disease with a baseline creatinine of 2.0, and prostate disorder. POD #7 Off pump coronary artery bypass grafting x 2. Left internal thoracic artery (in-situ) to left anterior descending artery, saphenous vein from aorta to posterior descending artery, Endoscopic right greater saphenous vein harvest, Left atrial appendage ligation using 35mm AtriClip, Graft flow measurements using the Zylie the Bear-Stim flow meter system, and an intraoperative transesophageal echocardiogram performed by anesthesia. Postoperative acute blood loss anemia and thrombocytopenia, expected given hemodilution. Intra and postoperative hypotension, unexpected Acute kidney injury, likely secondary to hypoperfusion and history of chronic kidney disease with a baseline creatinine of 2.0, status post placement of temporary hemodialysis catheter. Mental status change, unsure of eitiology, possible metabolic encephalopathy vs new stroke The patient was seen and examined in follow-up today 05/20/2023 at his bedside in the intensive care unit. He is sitting up to the bedside chair, is awake, alert, oriented 3 and is in no acute apparent distress. Denies any complaints of pain or shortness of breath at this time. Bedside telemetry showing normal sinus rhythm heart rate 71 BPM. Oxygen saturations are 98% on 2 L nasal cannula and he is achieving 1250 mL on his incentive spirometry. Left pleural chest tube remains in place to low continuous wall suction -20 cm H2O. No air leak is present. Draining thin serosanguineous drainage with 90 mL output in the last 24 hours. Nelson cath remains in place for accurate I's and O's with 90 mL of urine output in the last 24 hours. Patient received hemodialysis yesterday. He remains hemodynamically stable and is currently on no inotropic or pressor lepe pport. Norepinephrine drip has been off since early this morning. Blood pressure is currently 139/63 mmHg. Right IJ cordis remains in place with continuous CVP monitoring, current CVP pressure 6 mmHg. Chest x-ray and laboratory results reviewed. Objective - Vital Signs Vital signs: Vital Signs Temp 98 F 05/20/23 04:00 Pulse 69 05/20/23 08:22 Resp 19 05/20/23 08:22 BP 139/63 05/20/23 07:30 Pulse Ox 96 05/20/23 08:14 FiO2 50 05/13/23 15:13 Intake & Output 05/19/23 05/20/23 05/20/23 18:59 06:59 18:59 Intake Total 1495.207 434.515 26 Output Total 2143 105 0 Balance -647.793 329.515 26 Weight 114.4 kg Intake: IV 338 286 26 Sodium Chloride 0.9% 500 260 220 20 ml 500 ml @ 20 mls/hr IV .Q24H [facility] Rx#:[id number] pressure bags 78 66 6 Intake, IV Titration 157.207 148.515 Amount Insulin Regular 100 unit 9.848 In Sodium Chloride 0.9% 100 ml @ Per Protocol IV .Q0M [facility] Rx#:[id number] Norepinephrine 4 mg In 147.359 148.515 Sodium Chloride 0.9% 250 ml @ 0.03 MCG/KG/MIN 12. 996 mls/hr IV .[id number] [facility] Rx#:[id number] Hemodialysis 1000 Output: Chest Tube Drainage 90 70 Pleural Catheter Left 90 70 Urine 53 35 0 Hemodialysis 2000 Other: Voiding Method Indwelling Catheter Indwelling Catheter ABP, PAP, CO, CI - Last Documented Arterial Blood Pressure 140/50 Pulmonary Artery Pressure 29/9 Cardiac Output 4.5 Cardiac Index 2.2 - Exam CONSTITUTIONAL: Sitting up to the bedside chair in the intensive care unit, appears comfortable, cooperative, no apparent acute distress, generalized weakness. HEENT: Neck is supple, no JVD, no lymphadenopathy. Right IJ Cordis in place and functioning. RESPIRATORY: Lungs sounds essentially clear throughout, diminished to his bilateral bases, right greater than left. Respirations are symmetrical and nonlabored. Currently on 2 L nasal cannula with oxygen saturations 98%. Able to achieve 1250 mL on his incentive spirometry. Strong cough. CARDIOVASCULAR: Regular rhythm and rate. S1 and S2 present, negative for S3, gallop or murmur. Sternum is stable. Palpable peripheral pulses bilaterally, 2+ anasarca. No calf pain or tenderness noted. Heart hugger in place. Knee- high GENNY hose and sequential compression devices in place to his bilateral lower extremities. GASTROINTESTINAL: Abdomen soft, nontender, nondistended. Active bowel sounds present 4 quadrants. Tolerating diet. Passing flatus. No guarding or rigidity. GENITOURINARY: Nelson present draining clear, yellow urine. Urine Output 30 mL in the last 8 hours, 90 mL output in the last 24 hours. Hemodialysis yesterday with 1000 mL dialyzed. INTEGUMENTARY: Skin is warm and dry with no evidence of clubbing or cyanosis. Midline sternal incision clean dry and well approximated, covered with dry intact dressing. Right lower extremity EVH sites well approximated without redness or drainage. NEUROLOGIC: Cranial nerves II through XII intact. No Focal deficits. MUSKULOSKELETAL: Able to move all extremities, strength equal bilaterally, generalized weakness. Chronic right-sided weakness form previous CVA. PSYCHIATRIC: INVASIVE LINES AND TUBES: Left pleural chest tube present and connected to low continuous wall suction, no air leaks present. Left pleural chest tube with 90 mL of thin serosanguineous drainage in the last 24 hours. Right internal jugular Cordis, right radial arterial line and right groin hemodialysis catheter present. Current CVP 6 mmHg. - Allied health notes Allied health notes reviewed: nursing - Labs CBC & Chem 7: 05/20/23 05:00 05/20/23 05:00 Labs: Abnormal Lab Results - Last 24 Hours (Table) 05/17/23 05/19/23 05/19/23 Range/Units 12:06 08:57 10:21 RBC (4.30-5.90) m/uL Hgb (13.0-17.5) gm/dL Hct (39.0-53.0) % Sodium (137-145) mmol/L BUN (9-20) mg/dL Creatinine (0.66-1.25) mg/dL Glucose (74-99) mg/dL POC Glucose (mg/dL) 158 H 177 H (70-110) mg/dL Calcium (8.4-10.2) mg/dL AST (17-59) U/L Alkaline Phosphatase (38-126) U/L Total Protein (6.3-8.2) g/dL Albumin (3.5-5.0) g/dL Crossmatch See Detail 05/19/23 05/19/23 05/19/23 Range/Units 11:10 16:51 20:01 RBC (4.30-5.90) m/uL Hgb (13.0-17.5) gm/dL Hct (39.0-53.0) % Sodium (137-145) mmol/L BUN (9-20) mg/dL Creatinine (0.66-1.25) mg/dL Glucose (74-99) mg/dL POC Glucose (mg/dL) 155 H 181 H 285 H (70-110) mg/dL Calcium (8.4-10.2) mg/dL AST (17-59) U/L Alkaline Phosphatase (38-126) U/L Total Protein (6.3-8.2) g/dL Albumin (3.5-5.0) g/dL Crossmatch 05/19/23 05/20/23 05/20/23 Range/Units 23:48 05:00 05:00 RBC 2.83 L (4.30-5.90) m/uL Hgb 8.7 L (13.0-17.5) gm/dL Hct 26.4 L (39.0-53.0) % Sodium 134 L (137-145) mmol/L BUN 40 H (9-20) mg/dL Creatinine 4.55 H (0.66-1.25) mg/dL Glucose 203 H (74-99) mg/dL POC Glucose (mg/dL) 224 H (70-110) mg/dL Calcium 6.9 L (8.4-10.2) mg/dL AST 207 H (17-59) U/L Alkaline Phosphatase 157 H (38-126) U/L Total Protein 4.7 L (6.3-8.2) g/dL Albumin 2.3 L (3.5-5.0) g/dL Crossmatch 05/20/23 Range/Units 06:13 RBC (4.30-5.90) m/uL Hgb (13.0-17.5) gm/dL Hct (39.0-53.0) % Sodium (137-145) mmol/L BUN (9-20) mg/dL Creatinine (0.66-1.25) mg/dL Glucose (74-99) mg/dL POC Glucose (mg/dL) 233 H (70-110) mg/dL Calcium (8.4-10.2) mg/dL AST (17-59) U/L Alkaline Phosphatase (38-126) U/L Total Protein (6.3-8.2) g/dL Albumin (3.5-5.0) g/dL Crossmatch Microbiology - Last 24 Hours (Table) 05/18/23 08:30 Gram Stain - Final Sputum Sputum Culture - Final 05/18/23 20:25 Urine Culture - Final Urine,Catheterized 05/18/23 08:30 Blood Culture - Preliminary Blood 05/18/23 08:30 Blood Culture - Preliminary Blood 05/17/23 08:15 Gram Stain - Final Sputum Sputum Culture - Final - Imaging and Cardiology Chest x-ray: report reviewed, image reviewed Assessment and Plan Assessment: Two-vessel coronary artery disease, status post off pump 2 vessel coronary artery bypass grafting surgery Nonischemic cardiomyopathy with an EF of 45-50% History of left ventricular thrombus on transthoracic 2-D echocardiogram on 05/23/2023 which was organized and did not appear to be acute History of pulmonary embolus on eliquis on an outpatient basis History of hypertension Diabetes mellitus, with a preoperative hemoglobin A1c 7.4% History of CVA with some residual right-sided weakness COVID-19 infection in early 2021 Chronic kidney disease stage IV with a baseline creatinine of 2.0 Prostate disorder Postoperative acute blood loss anemia and thrombocytopenia, expected given hemodilution Intraoperative and Postoperative hypotension, unexpected Acute kidney injury, hemodynamic ATN with borderline urine output, likely secondary to hypoperfusion, status post temporary hemodialysis catheter placement Paroxysmal atrial fibrillation, status post ligation of left atrial appendage, currently in sinus rhythm Mental status change, unsure of eitiology, possible metabolic encephalopathy vs new stroke Plan: Continue to maximize medical therapy with low dose aspirin, statin, Eliquis, beta keara therapy. Will increase beta keara as tolerated. Hold Eliquis today for possible right-sided thoracentesis and placement of permacath hemodialysis catheter. Dr. Meier reconsult at for permacath hemodialysis catheter placement. Discontinue right IJ Cordis. Wean O2 as tolerated. Encourage incentive spirometry use 10 times every hour while awake. Bronchodilators per pulmonology. Continue to follow sputum culture results, preliminary results show no growth. Continue Midodrine 10 mg by mouth 3 times a day to help with blood pressure support. Hold for systolic blood pressure greater than 120 mmHg. Will monitor daily labs and chest x-rays. Electrolyte replacement per protocol. GI/DVT prophylaxis. Increase activity as tolerated. PT/OT/cardiac rehab following. Pain control with current medication regimen. No Toradol due to kidney disease. Insulin management per internal medicine service, patient's preoperative hemoglobin A1c was 7.4%. Patient needs tight glucose control to promote of sternal wound healing. We will remove his left pleural chest tube today. Continue Nelson catheter for strict accurate intake and output. Avoid nephr otoxic agents, creatinine today is 4.55. Likely discontinue the Nelson catheter tomorrow 05/21/2023. Daily weights. If final sputum culture results come back negative, we will discontinue his IV antibiotics. Hemodialysis recommendations per nephrology. Remove right radial arterial line. More recommendations to follow based on patient's clinical course. Time with Patient: Greater than 30
--- NOTE | 2023-05-20 09:43 | XR ---
EXAMINATION TYPE: XR chest 1V portable DATE OF EXAM: 05/20/2023 6:21 AM COMPARISON: Chest radiographs from 05/19/2023 TECHNIQUE: XR chest 1V portable Frontal view of the chest. CLINICAL INDICATION:Male, 68 years old with history of post cardiac surgery; FINDINGS: Lungs/Pleura: Blunting of the right costophrenic angle/with atelectasis. There is no evidence of left pleural effusion, focal consolidation, or pneumothorax. Pulmonary vascularity: Unremarkable. Heart/mediastinum: Cardiomediastinal silhouette is unremarkable. Left atrial appendage occlusion ruperto ce is present. Musculoskeletal: No acute osseous pathology. Midline sternotomy wires are noted. Other findings: None Lines/Tubes: Left thoracotomy tube is present without evidence of pneumothorax. Right internal jugular sheath remains present. IMPRESSION: 1. Postsurgical change with right pleural effusion. 2. Left thoracotomy tube without evidence of large pneumothorax.
[2023-05-20] MEDS: SODIUM BICARBONATE TAB 650 MG TAB PO SCH ×2 (10:24→20:20)
[2023-05-20] MEDS: ASPIRIN 81 MG PO SCH (10:24)
[2023-05-20] MEDS: AMIODARONE 200 MG TAB PO SCH ×2 (10:24→20:19)
[2023-05-20] MEDS: METOPROLOL TARTRATE 12.5 MG TAB PO SCH ×2 (10:24→20:20)
--- NOTE | 2023-05-20 10:25 | P.PN ---
Subjective Progress Note Date: 05/19/23 Patient was seen for a follow-up. Patient is laying comfortably in the bed. He appears more comfortable today. Offers no new symptoms. No syncopal spells, no stroke symptoms. Patient's was also present today. Objective - Vital Signs Vital signs: Vital Signs Temp 98.1 F 05/19/23 13:45 Pulse 65 05/19/23 13:45 Resp 16 05/19/23 13:45 BP 123/59 05/19/23 13:45 Pulse Ox 99 05/19/23 13:15 FiO2 50 05/13/23 15:13 Intake & Output 05/18/23 05/19/23 05/19/23 18:59 06:59 18:59 Intake Total 1815.943 038.291 9806.024 Output Total 3743 327 9723 Balance 702.943 205.851 -759.976 Weight 116.5 kg Intake: IV 912 292 182 Cefepime 0.5 gm In Sodium 50 Chloride 0.9% 50 ml @ 12 .5 mls/hr IVPB Q24HR [facility] Rx#:[id number] Potassium Chloride 20 meq 100 In Water For Injection 1 100ml.bag @ 50 mls/hr IVPB [facility] Rx#: [id number] Sodium Chloride 0.9% 500 190 220 140 ml 500 ml @ 20 mls/hr IV .Q24H [facility] Rx#:[id number] Vancomycin 1,750 mg In 500 Sodium Chloride 0.9% 500 ml 500 ml @ 167 mls/hr IVPB ONCE ONE Rx#: [id number] pressure bags 72 72 42 Intake, IV Titration 103.943 32.851 120.024 Amount Insulin Regular 100 unit 37.808 32.851 9.848 In Sodium Chloride 0.9% 100 ml @ Per Protocol IV .Q0M [facility] Rx#:[id number] Norepinephrine 4 mg In 66.135 110.176 Sodium Chloride 0.9% 250 ml @ 0.03 MCG/KG/MIN 12. 996 mls/hr IV .[id number] [facility] Rx#:[id number] Oral 300 Hemodialysis 500 1000 Output: Chest Tube Drainage 60 70 40 Pleural Catheter Left 60 70 40 Urine 53 49 22 Hemodialysis 1000 2000 Other: Voiding Method Indwelling Catheter Indwelling Catheter Indwelling Catheter # Bowel Movements 1 ABP, PAP, CO, CI - Last Documented Arterial Blood Pressure 154/52 Pulmonary Artery Pressure 29/9 Cardiac Output 4.5 Cardiac Index 2.2 - Exam Patient's examination remains unchanged. He is much more alert and awake. - Labs CBC & Chem 7: 05/20/23 05:00 05/20/23 05:00 Labs: Abnormal Lab Results - Last 24 Hours (Table) 05/18/23 05/18/23 05/18/23 Range/Units 14:06 14:40 16:12 RBC (4.30-5.90) m/uL Hgb (13.0-17.5) gm/dL Hct (39.0-53.0) % Plt Count (150-450) k/uL Lymphocytes # (1.0-4.8) k/uL Sodium (137-145) mmol/L BUN (9-20) mg/dL Creatinine (0.66-1.25) mg/dL Glucose (74-99) mg/dL POC Glucose (mg/dL) 154 H 136 H (70-110) mg/dL Calcium (8.4-10.2) mg/dL AST (17-59) U/L Alkaline Phosphatase (38-126) U/L Total Protein (6.3-8.2) g/dL Albumin (3.5-5.0) g/dL Urine Protein 3+ H (Negative) Urine Glucose (UA) 1+ H (Negative) Urine Blood Large H (Negative) Ur Leukocyte Esterase Large H (Negative) Urine RBC >182 H (0-5) /hpf Urine WBC 50 H (0-5) /hpf Ur Squamous Epith Cells 10 H (0-4) /hpf Ur Transition Epith Cell 10 H (0-1) /hpf Urine Bacteria Rare H (None) /hpf 05/18/23 05/18/23 05/18/23 Range/Units 17:12 18:16 19:06 RBC (4.30-5.90) m/uL Hgb (13.0-17.5) gm/dL Hct (39.0-53.0) % Plt Count (150-450) k/uL Lymphocytes # (1.0-4.8) k/uL Sodium (137-145) mmol/L BUN (9-20) mg/dL Creatinine (0.66-1.25) mg/dL Glucose (74-99) mg/dL POC Glucose (mg/dL) 136 H 173 H 141 H (70-110) mg/dL Calcium (8.4-10.2) mg/dL AST (17-59) U/L Alkaline Phosphatase (38-126) U/L Total Protein (6.3-8.2) g/dL Albumin (3.5-5.0) g/dL Urine Protein (Negative) Urine Glucose (UA) (Negative) Urine Blood (Negative) Ur Leukocyte Esterase (Negative) Urine RBC (0-5) /hpf Urine WBC (0-5) /hpf Ur Squamous Epith Cells (0-4) /hpf Ur Transition Epith Cell (0-1) /hpf Urine Bacteria (None) /hpf 05/18/23 05/18/23 05/19/23 Range/Units 19:56 21:03 00:13 RBC (4.30-5.90) m/uL Hgb (13.0-17.5) gm/dL Hct (39.0-53.0) % Plt Count (150-450) k/uL Lymphocytes # (1.0-4.8) k/uL Sodium (137-145) mmol/L BUN (9-20) mg/dL Creatinine (0.66-1.25) mg/dL Glucose (74-99) mg/dL POC Glucose (mg/dL) 133 H 137 H 125 H (70-110) mg/dL Calcium (8.4-10.2) mg/dL AST (17-59) U/L Alkaline Phosphatase (38-126) U/L Total Protein (6.3-8.2) g/dL Albumin (3.5-5.0) g/dL Urine Protein (Negative) Urine Glucose (UA) (Negative) Urine Blood (Negative) Ur Leukocyte Esterase (Negative) Urine RBC (0-5) /hpf Urine WBC (0-5) /hpf Ur Squamous Epith Cells (0-4) /hpf Ur Transition Epith Cell (0-1) /hpf Urine Bacteria (None) /hpf 05/19/23 05/19/23 05/19/23 Range/Units 00:59 01:57 03:09 RBC (4.30-5.90) m/uL Hgb (13.0-17.5) gm/dL Hct (39.0-53.0) % Plt Count (150-450) k/uL Lymphocytes # (1.0-4.8) k/uL Sodium (137-145) mmol/L BUN (9-20) mg/dL Creatinine (0.66-1.25) mg/dL Glucose (74-99) mg/dL POC Glucose (mg/dL) 176 H 112 H 120 H (70-110) mg/dL Calcium (8.4-10.2) mg/dL AST (17-59) U/L Alkaline Phosphatase (38-126) U/L Total Protein (6.3-8.2) g/dL Albumin (3.5-5.0) g/dL Urine Protein (Negative) Urine Glucose (UA) (Negative) Urine Blood (Negative) Ur Leukocyte Esterase (Negative) Urine RBC (0-5) /hpf Urine WBC (0-5) /hpf Ur Squamous Epith Cells (0-4) /hpf Ur Transition Epith Cell (0-1) /hpf Urine Bacteria (None) /hpf 05/19/23 05/19/23 05/19/23 Range/Units 04:12 04:26 04:26 RBC 2.61 L (4.30-5.90) m/uL Hgb 7.7 L (13.0-17.5) gm/dL Hct 23.8 L (39.0-53.0) % Plt Count 147 L (150-450) k/uL Lymphocytes # 0.8 L (1.0-4.8) k/uL Sodium 134 L (137-145) mmol/L BUN 36 H (9-20) mg/dL Creatinine 5.26 H (0.66-1.25) mg/dL Glucose 116 H (74-99) mg/dL POC Glucose (mg/dL) 120 H (70-110) mg/dL Calcium 7.6 L (8.4-10.2) mg/dL AST 257 H (17-59) U/L Alkaline Phosphatase 135 H (38-126) U/L Total Protein 4.8 L (6.3-8.2) g/dL Albumin 2.4 L (3.5-5.0) g/dL Urine Protein (Negative) Urine Glucose (UA) (Negative) Urine Blood (Negative) Ur Leukocyte Esterase (Negative) Urine RBC (0-5) /hpf Urine WBC (0-5) /hpf Ur Squamous Epith Cells (0-4) /hpf Ur Transition Epith Cell (0-1) /hpf Urine Bacteria (None) /hpf 05/19/23 05/19/23 05/19/23 Range/Units 06:08 07:04 08:13 RBC (4.30-5.90) m/uL Hgb (13.0-17.5) gm/dL Hct (39.0-53.0) % Plt Count (150-450) k/uL Lymphocytes # (1.0-4.8) k/uL Sodium (137-145) mmol/L BUN (9-20) mg/dL Creatinine (0.66-1.25) mg/dL Glucose (74-99) mg/dL POC Glucose (mg/dL) 120 H 113 H 134 H (70-110) mg/dL Calcium (8.4-10.2) mg/dL AST (17-59) U/L Alkaline Phosphatase (38-126) U/L Total Protein (6.3-8.2) g/dL Albumin (3.5-5.0) g/dL Urine Protein (Negative) Urine Glucose (UA) (Negative) Urine Blood (Negative) Ur Leukocyte Esterase (Negative) Urine RBC (0-5) /hpf Urine WBC (0-5) /hpf Ur Squamous Epith Cells (0-4) /hpf Ur Transition Epith Cell (0-1) /hpf Urine Bacteria (None) /hpf 05/19/23 05/19/23 05/19/23 Range/Units 08:57 10:21 11:10 RBC (4.30-5.90) m/uL Hgb (13.0-17.5) gm/dL Hct (39.0-53.0) % Plt Count (150-450) k/uL Lymphocytes # (1.0-4.8) k/uL Sodium (137-145) mmol/L BUN (9-20) mg/dL Creatinine (0.66-1.25) mg/dL Glucose (74-99) mg/dL POC Glucose (mg/dL) 158 H 177 H 155 H (70-110) mg/dL Calcium (8.4-10.2) mg/dL AST (17-59) U/L Alkaline Phosphatase (38-126) U/L Total Protein (6.3-8.2) g/dL Albumin (3.5-5.0) g/dL Urine Protein (Negative) Urine Glucose (UA) (Negative) Urine Blood (Negative) Ur Leukocyte Esterase (Negative) Urine RBC (0-5) /hpf Urine WBC (0-5) /hpf Ur Squamous Epith Cells (0-4) /hpf Ur Transition Epith Cell (0-1) /hpf Urine Bacteria (None) /hpf Microbiology - Last 24 Hours (Table) 05/18/23 08:30 Gram Stain - Preliminary Sputum Sputum Culture - Preliminary 05/17/23 08:15 Gram Stain - Final Sputum Sputum Culture - Final Assessment and Plan Assessment: * Episode of altered mental status, aphasia, that seems to have improved, but not resolved yet. Patient's examination reveals slight focal findings as mentioned above. Rule out metabolic encephalopathy. Rule out acute CVA. * Paroxysmal atrial fibrillation, currently in sinus rhythm. 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 Patient presented with elective coronary artery bypass graft surgery. Patient has been off Eliquis since the surgery. Patient had an episode of altered mental status, with possible some aphasia, which seems to have resolved. Patient at that time also had transient run of atrial fibrillation yesterday. Rule out acute ischemic stroke. * Patient has been resumed on Eliquis 5 mg twice a day and aspirin 81 mg daily. No need for Plavix from neurology point. * CT head revealed no acute intracranial process per nonspecific white matter changes, likely secondary to chronic small vessel ischemic disease. I personally requested he had come agree with the findings. There is evidence of old possible lacune in the bilateral external capsule. * Await MRI of the brain evaluate for acute stroke * 2-D echo revealed technically limited study. Moderately impaired left ventricular systolic function with linsey-apical hypokinesis. Small pericardial effusion. * Carotid Doppler revealed less than 50% stenosis of bilateral carotid bifurcation. Antegrade flow in both vertebral arteries. * Ammonia <9, TSH normal. Await B12, folate. * Hemoglobin A1c 7.4 on 05/04/2023. Recommend optimize control of diabetes to target A1c < 7.0 * Lipid panel with cholesterol 108, LDL 44, HDL 35, triglycerides 140. Continue Crestor 40 mg daily. * EEG was abnormal due to background slowing of mild to moderate degree, suggestive of encephalopathy. No epileptiform activity was seen. No indication for AED.
[2023-05-20] MEDS: SODIUM CHLORIDE 0.9% 500 ML 500 ML IV SCH (10:31)
--- NOTE | 2023-05-20 10:44 | P.PN ---
Subjective Progress Note Date: 05/20/23 This is a 68-year-old male patient with a known history of coronary artery disease, hypertension, hyperlipidemia, diabetes mellitus, benign prostatic hyperplasia, pulmonary embolism anticoagulated with Eliquis. He also has a history of COVID-19 infection and subsequent CVA felt to be secondary to hyperco agulability. In March 2023 at undergone cardiac catheterization that revealed a chronic total occlusion of the right coronary artery which fills by collaterals circulation, chronic total occlusion of the mid LAD by the bifurcation of the large diagonal branch with flush occlusion. The LAD fills by ipsilateral collaterals. He was recommended coronary artery bypass grafting. Echocardiogram revealed moderate LV dysfunction with ejection fraction of 40- 45%. He was brought in today for an elective surgery. He had undergone an off- pump coronary artery bypass grafting 2 with the left internal thoracic artery to the left anterior descending artery, saphenous vein graft from the aorta to the posterior descending artery. Left atrial appendage ligation with a 35mm Atriclip. He is seen postoperatively in the intensive care unit. He is intubated on the mechanical ventilator and assist control mode with a rate of 14, tidal volume 500, FiO2 50% and a PEEP of 10. Initial arterial blood gases revealed a PaO2 of 387, P CO2 of 41 and a pH of 7.31 on 100% FiO2. Sodium 137. Potassium 4.3. Bicarb 20. BUN 39. Creatinine 2.33. Glucose 154. Calcium 7.9. Magnesium 2.4. AST 21. ALT 16. Albumin 3.0. He is currently on dopamine at 2 mcg/kg/m. Milrinone at 0.3 mcg/kg/m. Norepinephrine at 0.06 mcg/kg/m propofol currently on hold. Insulin drip at 6 units per hour. Lactated Ringer's at 50 MLS per hour. PA pressure 43/19. Cardiac output 5.9. Cardiac index 2.8. Backup pacing at a rate of 50 bpm. Right and left pleural chest tubes in place with a small leak. Mediastinal chest tubes 2. Just x-ray reveals postsurgical changes. Bilateral chest tubes without evidence of sizable pneumothorax. Carson-Misha catheter, mediastinal drain, endotracheal and gastric tube secured in place. Patient was reevaluated today on 05/14/2023, patient is doing well, he is postoperative day #1, patient is requiring multiple drips including dopamine at 3 mcg/kg/m, norepinephrine at 0.02 mcg/kg/m, he is on insulin at 4 units per hour, and lactated Ringer's at 40 mL per hour. Cardiac index is 2.2. Cardiac output is 4.5. Urine output is marginal between 15-20 mL per hour. Patient is on 1 L nasal cannula, does not seem to be in distress, sitting at a bedside chair. Chest x-ray showed minimal basilar atelectasis and small pleural effusions with cardiomegaly and postoperative changes. WBC count is 12.9 hemoglobin is 10.7. Basic metabolic profile is normal however his BUN is 43 creatinine is rising up to 2.83, baseline yesterday was 2.33. Patient is achieving about 1000 mL via incentive spirometry Reevaluated today on 05/15/2023, patient is sitting up at the bedside chair, awake, oriented 3, does not seem to be in any distress. Patient is on 2 L nasal cannula, O2 sats is 94%, remains on dopamine drip at 3 mcg/kg/m, his urine output remains marginal and poor, however the patient's creatinine jumped up significantly over the last 24 hours, I believe the patient may have developed acute tubular necrosis from hypotension, nonetheless clinically the patient is doing better than expected. He was seen by nephrology for his renal failure.pleural and mediastinal chest tubes noted, remain in place, Nelson catheter remains in place. Labs were reviewed today, creatinine is up to 4.03 BUN is 48. Hemoglobin is 9.9. WBC count is 15.3.chest x-ray showed mostly postsurgical changes and bilateral chest tubes without evidence of any pneumothorax. Small right-sided pleural effusion is noted. Patient was reevaluated today on 05/16/2023, doing well from the pulmonary perspective, but doing poorly from the renal perspective. Patient continues to develop worsening renal failure, being followed by nephrology, and I believe the patient may be heading towards hemodialysis. Creatinine is up to 5.9 this morning. Bicarb is low. Patient remains on dopamine at 3 mcg/kg/m with very poor urine output. Chest x-ray is showing postsurgical changes and small right- sided pleural effusion no pneumothorax, no evidence of pneumonia . Bicarb is low, creatinine is high, but sugar is 200, his ventricular epicardial pacemaker wires were removed yesterday. Mediastinal chest tube was removed yesterday, continues to have right IJ Cordis in place, and continues to have CVP monitoring. CVP today is 6. Right-sided and left-sided pleural chest tubes remain in place. Nelson catheter remains in place. Patient had only 120 mL of urine output in the last 8 hours. And about 400 in the last 24 hours. The patient is seen today 05/17/2023 in follow-up in the intensive care unit. He is currently sitting up in bed. Awake and alert in no acute distress. Postoperative day #4. He is maintaining O2 saturations in the 90s on 4 L/m per nasal cannula. He has normal saline at KVO. Dopamine drip at 3 mcg/kg/min. Insulin drip at 11 units per hour. D5W with 3 A of sodium bicarb at 75 ML's per hour. Lasix drip at 20 mg per hour. He is oliguric. He did receive a right femoral temporary hemodialysis catheter placed last evening. Plan is for hemodialysis today. White count 13.0. Hemoglobin 7.7. Platelets 140. Sodium 132. Potassium 4.1. Bicarb 21. BUN 67. Creatinine 7.33. Glucose 226. Arterial blood gases revealed a pO2 of 87, pCO2 35. PH 7.42. Left pleural chest tube remains in place to wall suction. No significant leak noted. Right internal Cordis in place. Right radial art line in place. As x-ray reveals no evidence of pneumothorax. Mild cardiomegaly and a right pleural effusion. Continues to work with the incentive spirometer. Continued on bronchodilators. The patient is seen today 05/18/2023 in follow-up in the intensive care unit. He is currently resting in bed. Awake and alert. Postoperative day #5. He is currently maintaining O2 saturations in the 90s on 7 L high flow nasal cannula. Blood gases revealed a PaO2 of 74, pCO2 34 and a pH of 7.39. He remains on lactated Ringer's at KVO. Insulin drip at 4.5 units per hour. Norepinephrine is currently on hold. Ultrasound of the chest is pending. He is status post 2 units of packed red blood cells this admission. Current hemoglobin 7.7. Platelets 130,000. White count 9.0. Sodium 135. Potassium 3.5. Bicarb 20. BUN 50. Creatinine 6.50. Glucose 98. AST to 55. ALT 19. Hepatitis B screen negative. He did not tolerate hemodialysis yesterday. To be attempted again today. Echocardiogram revealed moderately impaired left ventricular systolic function and small pericardial effusion. Computed tomography scan of the brain revealed no acute intracranial process. Current CVP of 10 mmHg. He did have a T-max of 101.3 early this morning. Currently afebrile. Urine culture revealed no growth. Sputum culture pending. Currently on vancomycin. The patient is seen today 05/19/2023 in follow-up in the intensive care unit. He is currently sitting up in bed. Awake, alert, confused, slow to respond. Weak. EEG reveals background slowing of mild to moderate degree suggestive of encephalopathy. Continues to maintain good O2 saturations in the 90s on 3 L/m per nasal cannula. Ultrasound of the chest revealed no significant fluid for thoracentesis. He is receiving hemodialysis today. Yesterday they removed 500 ML's and hoping for thousand today. He is on norepinephrine at 0.02 mcg/kg/m. 0.9 normal saline at 20 ML's per hour. Insulin drip currently on hold. He is on antibiotics in the form of vancomycin and cefepime. He remains on bronchodilators. Working with the incentive spirometer. Continued on oral amiodarone. Anticoagulated with Eliquis. He is status post 2 units of packed red blood cells this admission. Current hemoglobin 7.7. Platelets 147. White count 8.4. Sodium 134. Potassium 3.9. Bicarb 34. BUN 36. Creatinine 5.26. Glucose 155. AST 257. ALT 43. The patient is seen today 05/20/2023 in follow-up in the intensive care unit. He is currently up in a chair at the bedside. Awake and alert in no acute distress. He remains afebrile. He is down to 2 L nasal cannula and maintaining O2 saturations in the 90s. Currently in sinus rhythm. Chest x-ray showing some atelectasis of the right lower lobe. Encouraged increased use the incentive spirometer. Left pleural chest tube remains in place. He did receive hemodialysis yesterday with 2 L of fluid removed. His norepinephrine has been off since 6:30 this morning. He is continued on vancomycin and cefepime. Cultures are revealing no growth. He is status post 2 units of packed red blood cells this admission. Current hemoglobin 8.7. Platelets 151. White count 9.2. Sodium 134. Potassium 3.8. Bicarb 26. BUN 40. Creatinine 4.55. Glucose 203. AST 207. ALT 28. Cortisol 28. He remains on DuoNeb inhalations. Objective - Vital Signs Vital signs: Vital Signs Temp 97.6 F 05/20/23 08:00 Pulse 71 05/20/23 10:00 Resp 17 05/20/23 10:00 BP 124/59 05/20/23 10:00 Pulse Ox 96 05/20/23 10:00 FiO2 50 05/13/23 15:13 Intake & Output 05/19/23 05/20/23 05/20/23 18:59 06:59 18:59 Intake Total 1495.207 434.515 104 Output Total 2143 105 5 Balance -647.793 329.515 99 Weight 114.4 kg Intake: IV 338 286 104 0.9 Normal Saline 78 66 24 pressure bags Sodium Chloride 0.9% 500 260 220 80 ml 500 ml @ 20 mls/hr IV .Q24H [facility] Rx#:[id number] Intake, IV Titration 157.207 148.515 Amount Insulin Regular 100 unit 9.848 In Sodium Chloride 0.9% 100 ml @ Per Protocol IV .Q0M [facility] Rx#:[id number] Norepinephrine 4 mg In 147.359 148.515 Sodium Chloride 0.9% 250 ml @ 0.03 MCG/KG/MIN 12. 996 mls/hr IV .[id number] [facility] Rx#:[id number] Hemodialysis 1000 Output: Chest Tube Drainage 90 70 Pleural Catheter Left 90 70 Urine 53 35 5 Hemodialysis 1999 Other: Voiding Method Indwelling Catheter Indwelling Catheter ABP, PAP, CO, CI - Last Documented Arterial Blood Pressure 115/41 Pulmonary Artery Pressure 29/9 Cardiac Output 4.5 Cardiac Index 2.2 - Exam GENERAL EXAM: Alert, oriented 68-year-old male, on 2 L nasal cannula, up in a chair, comfortable, in no apparent distress. HEAD: Normocephalic. EYES: Normal reaction of pupils, equal size. NOSE: Clear with pink turbinates. THROAT: No erythema or exudates. NECK: Right IJ Cordis in place. No masses, no JVD. CHEST: Sternal dressing dry and intact. Heart hugger in place. Left pleural chest tube in place to wall suction. No leak. LUNGS: Equal air entry with crackles in the right lung base. CVS: S1 and S2 normal with no audible murmur, regular rhythm. ABDOMEN: No hepatosplenomegaly, normal bowel sounds, no guarding or rigidity. SPINE: No scoliosis or deformity SKIN: No rashes CENTRAL NERVOUS SYSTEM: No focal deficits, tone is normal in all 4 extremities. EXTREMITIES: Right femoral hemodialysis catheter in place. SCDs in place. Peripheral pulses are intact. - Labs CBC & Chem 7: 05/20/23 05:00 05/20/23 05:00 Labs: Abnormal Lab Results - Last 24 Hours (Table) 05/17/23 05/19/23 05/19/23 Range/Units 12:06 11:10 16:51 RBC (4.30-5.90) m/uL Hgb (13.0-17.5) gm/dL Hct (39.0-53.0) % Sodium (137-145) mmol/L BUN (9-20) mg/dL Creatinine (0.66-1.25) mg/dL Glucose (74-99) mg/dL POC Glucose (mg/dL) 155 H 181 H (70-110) mg/dL Calcium (8.4-10.2) mg/dL AST (17-59) U/L Alkaline Phosphatase (38-126) U/L Total Protein (6.3-8.2) g/dL Albumin (3.5-5.0) g/dL Crossmatch See Detail 05/19/23 05/19/23 05/20/23 Range/Units 20:01 23:48 05:00 RBC (4.30-5.90) m/uL Hgb (13.0-17.5) gm/dL Hct (39.0-53.0) % Sodium 134 L (137-145) mmol/L BUN 40 H (9-20) mg/dL Creatinine 4.55 H (0.66-1.25) mg/dL Glucose 203 H (74-99) mg/dL POC Glucose (mg/dL) 285 H 224 H (70-110) mg/dL Calcium 6.9 L (8.4-10.2) mg/dL AST 207 H (17-59) U/L Alkaline Phosphatase 157 H (38-126) U/L Total Protein 4.7 L (6.3-8.2) g/dL Albumin 2.3 L (3.5-5.0) g/dL Crossmatch 05/20/23 05/20/23 Range/Units 05:00 06:13 RBC 2.83 L (4.30-5.90) m/uL Hgb 8.7 L (13.0-17.5) gm/dL Hct 26.4 L (39.0-53.0) % Sodium (137-145) mmol/L BUN (9-20) mg/dL Creatinine (0.66-1.25) mg/dL Glucose (74-99) mg/dL POC Glucose (mg/dL) 233 H (70-110) mg/dL Calcium (8.4-10.2) mg/dL AST (17-59) U/L Alkaline Phosphatase (38-126) U/L Total Protein (6.3-8.2) g/dL Albumin (3.5-5.0) g/dL Crossmatch Microbiology - Last 24 Hours (Table) 05/18/23 08:30 Gram Stain - Final Sputum Sputum Culture - Final 05/18/23 20:25 Urine Culture - Final Urine,Catheterized 05/18/23 08:30 Blood Culture - Preliminary Blood 05/18/23 08:30 Blood Culture - Preliminary Blood 05/17/23 08:15 Gram Stain - Final Sputum Sputum Culture - Final Assessment and Plan Assessment: Coronary artery disease status post off-pump coronary artery bypass grafting 2 with a left internal thoracic artery to the left anterior descending artery, saphenous vein graft from the aorta to the posterior descending artery. Left atrial appendage ligation. Postoperative day #7. Acute kidney injury requiring hemodialysis History of chronic kidney disease, stage IV Febrile illness, cultures revealing no growth, currently on vancomycin and cefepime Ischemic cardiomyopathy with ejection fraction 40-45% History of pulmonary embolism previously on Eliquis Diabetes mellitus Hypertension CVA BPH Hyperlipidemia Previous COVID-19 infection Plan: The patient was seen and evaluated Chest x-ray, labs and medications reviewed Currently on 2 L nasal cannula Norepinephrine on hold since 6:30 this morning Continue bronchodilators, vancomycin, cefepime Encourage the increased use of the incentive spirometer Increase his activity as tolerated We will continue to follow I have personally seen and examined the patient, performed the documentation and the assessment and plan as written. Number of minutes spent on the visit: 10.
[2023-05-20] MEDS ORDERED: FUROSEMIDE 10 MG/ML 10 ML VIAL IV STA (10:46)
--- NOTE | 2023-05-20 11:58 | P.PN ---
Subjective Patient is seen in follow-up for acute kidney injury on chronic kidney disease. No problems with dialysis yesterday. Remains oliguric. Off vasopressors. Oral intake has been fair. Mentation improved. Currently sitting up in chair. Awake and alert. Vital signs are stable. General: Sitting up in chair. HEENT: On nasal cannula. LUNGS: No audible rhonchi or wheezes. HEART: Regular rate and rhythm. ABDOMEN: No distention. Obese. EXTREMITITES: 1+ edema. Objective - Vital Signs Vital signs: Vital Signs Temp 97.6 F 05/20/23 08:00 Pulse 68 05/20/23 11:00 Resp 17 05/20/23 11:00 BP 119/60 05/20/23 11:00 Pulse Ox 97 05/20/23 11:00 FiO2 50 05/13/23 15:13 Intake & Output 05/19/23 05/20/23 05/20/23 18:59 06:59 18:59 Intake Total 1495.207 434.515 104 Output Total 2143 105 5 Balance -647.793 329.515 99 Weight 114.4 kg Intake: IV 338 286 104 0.9 Normal Saline 78 66 24 pressure bags Sodium Chloride 0.9% 500 260 220 80 ml 500 ml @ 20 mls/hr IV .Q24H JESSICA Rx#:[id number] Intake, IV Titration 157.207 148.515 Amount Insulin Regular 100 unit 9.848 In Sodium Chloride 0.9% 100 ml @ Per Protocol IV .Q0M JESSICA Rx#:[id number] Norepinephrine 4 mg In 147.359 148.515 Sodium Chloride 0.9% 250 ml @ 0.03 MCG/KG/MIN 12. 996 mls/hr IV .[id number] JESSICA Rx#:[id number] Hemodialysis 1000 Output: Chest Tube Drainage 90 70 Pleural Catheter Left 90 70 Urine 53 35 5 Hemodialysis 2000 Other: Voiding Method Indwelling Catheter Indwelling Catheter ABP, PAP, CO, CI - Last Documented Arterial Blood Pressure 116/42 Pulmonary Artery Pressure 29/9 Cardiac Output 4.5 Cardiac Index 2.2 - Labs CBC & Chem 7: 05/20/23 05:00 05/20/23 05:00 Labs: Abnormal Lab Results - Last 24 Hours (Table) 05/17/23 05/19/23 05/19/23 Range/Units 12:06 16:51 20:01 RBC (4.30-5.90) m/uL Hgb (13.0-17.5) gm/dL Hct (39.0-53.0) % Sodium (137-145) mmol/L BUN (9-20) mg/dL Creatinine (0.66-1.25) mg/dL Glucose (74-99) mg/dL POC Glucose (mg/dL) 181 H 285 H (70-110) mg/dL Calcium (8.4-10.2) mg/dL AST (17-59) U/L Alkaline Phosphatase (38-126) U/L Total Protein (6.3-8.2) g/dL Albumin (3.5-5.0) g/dL Crossmatch See Detail 05/19/23 05/20/23 05/20/23 Range/Units 23:48 05:00 05:00 RBC 2.83 L (4.30-5.90) m/uL Hgb 8.7 L (13.0-17.5) gm/dL Hct 26.4 L (39.0-53.0) % Sodium 134 L (137-145) mmol/L BUN 40 H (9-20) mg/dL Creatinine 4.55 H (0.66-1.25) mg/dL Glucose 203 H (74-99) mg/dL POC Glucose (mg/dL) 224 H (70-110) mg/dL Calcium 6.9 L (8.4-10.2) mg/dL AST 207 H (17-59) U/L Alkaline Phosphatase 157 H (38-126) U/L Total Protein 4.7 L (6.3-8.2) g/dL Albumin 2.3 L (3.5-5.0) g/dL Crossmatch 05/20/23 Range/Units 06:13 RBC (4.30-5.90) m/uL Hgb (13.0-17.5) gm/dL Hct (39.0-53.0) % Sodium (137-145) mmol/L BUN (9-20) mg/dL Creatinine (0.66-1.25) mg/dL Glucose (74-99) mg/dL POC Glucose (mg/dL) 233 H (70-110) mg/dL Calcium (8.4-10.2) mg/dL AST (17-59) U/L Alkaline Phosphatase (38-126) U/L Total Protein (6.3-8.2) g/dL Albumin (3.5-5.0) g/dL Crossmatch Microbiology - Last 24 Hours (Table) 05/18/23 08:30 Gram Stain - Final Sputum Sputum Culture - Final 05/18/23 20:25 Urine Culture - Final Urine,Catheterized 05/18/23 08:30 Blood Culture - Preliminary Blood 05/18/23 08:30 Blood Culture - Preliminary Blood 05/17/23 08:15 Gram Stain - Final Sputum Sputum Culture - Final Assessment and Plan Plan: Assessment: 1. Acute kidney injury secondary to hemodynamic ATN. Creatinine 7.3 dated 05/17/2023. Oliguric. Started on hemodialysis 05/17/2023. No hydronephrosis noted on kidney ultrasound. 2. A. fib with RVR maintained on amiodarone and Lopressor. 3. 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 4. Metabolic acidosis secondary to acute kidney injury s/p bicarbonate drip. Improved post postdialysis. 5. Cardiomyopathy. Ejection fraction of 40-45%. 6. Chronic kidney disease stage IV with baseline creatinine near 2. Suspect underlying diabetic kidney disease. 7. Diabetes mellitus. 8. Volume overload. Plan: Hemodialysis tomorrow. Challenge UF. No response to IV Lasix given 05/18/2023. Repeat 80 mg IV Lasix once today. Phosphorus 4.5 today. Continue to monitor renal function and urine output. Monitor for renal recovery. Cortisol level not low.
[2023-05-20 12:02] LABS: Glucose,Whole Blood 318 mg/dL (70-110)
--- NOTE | 2023-05-20 13:58 | PN ---
PROGRESS NOTE SUBJECTIVE: Mr. Birmingham had dialysis yesterday. He is going to have a permanent dialysis catheter and also being considered for some thoracentesis. He is maintaining sinus rhythm. OBJECTIVE: HEART: S1 and S2 heard normally. Short systolic murmur noted. LUNGS: Reveal diminished air entry, more so on the bases bilaterally. Chest x-ray from this morning suggests right pleural effusion, that is somewhat more obvious. Left thoracotomy tube is noted. He may have thoracentesis as well as a dialysis catheter. Eliquis is being held. Plan is to continue current medical regimen from a cardiac standpoint. No new suggestions. The patient is making modest progress. MMODL / IJN: [id number] /
[2023-05-20 16:31] LABS: Glucose,Whole Blood 263 mg/dL (70-110)
[2023-05-20 20:11] LABS: Glucose,Whole Blood 253 mg/dL (70-110)
[2023-05-20] MEDS: INSULIN DETEMIR (LEVEMIR) 100 UNIT/ML SYR SQ SCH (20:19)
--- NOTE | 2023-05-20 22:24 | PN ---
PROGRESS NOTE DATE OF SERVICE: 05/20/2023 SUBJECTIVE: This is a 68-year-old gentleman, who was admitted with multiple complex medical issues, status post CABG. The patient is being monitored in the ICU. The patient also had worsening renal failure. The patient also had right pleural effusion. The blood sugars are fluctuating also. The patient is taking metformin at home. PAST MEDICAL HISTORY: Reviewed. REVIEW OF SYSTEMS: A 14-point review is negative except as mentioned earlier. CURRENT MEDICATIONS: Reviewed include amiodarone. Dose and rest of medications reviewed. PHYSICAL EXAMINATION: VITAL SIGNS: Pulse is 65, blood pressure 109/54, respirations 14. HEENT: Conjunctivae normal. NECK: No JVD. CARDIOVASCULAR: S1, S2 muffled. RESPIRATIONS: A few scattered rhonchi. No crackles. ABDOMEN: Soft, obese. LEGS: No edema. NERVOUS SYSTEM: Nonfocal. LABORATORY DATA: WBC 9.8, hemoglobin is 8.7. Sodium 134. ASSESSMENT: 1. Coronary artery disease, status post coronary artery bypass graft. 2. Acute on chronic kidney disease. 3. Right pleural effusion. 4. Diabetes mellitus, type 2. 5. History of ischemic cardiomyopathy, ejection fraction 40% to 45%. 6. Hypertension. 7. Multiple medical issues. RECOMMENDATIONS AND DISCUSSION: This is a 68-year-old gentleman, who presented with multiple complex medical issues. We will monitor the patient closely. I would recommend continue the current medication, bronchodilators. Monitor fluid electrolyte balance closely and follow closely with Nephrology. Monitor creatinine closely. For the blood sugars, I would recommend increase the Lantus and add 2 units with meals and hold if the sugars are dropping, but overall prognosis guarded because of multiple complex medical issues. Further recommendations to follow. See orders for further details. MMODL / IJN: [id number] /
[2023-05-21 05:29] LABS: African American GFR (CKD) 10 (>60 ml/min/1.73 sqM); Anion Gap 8 mmol/L; Blood Urea Nitrogen 61 mg/dL (9-20); Carbon Dioxide 26 mmol/L (22-30); Chloride 99 mmol/L (98-107); Glucose 116 mg/dL (74-99); HCT 26.4 % (39.0-53.0); HGB 8.8 gm/dL (13.0-17.5); MCH 31.8 pg (25.0-35.0); MCHC 33.5 g/dL (31.0-37.0); Mean Platelet Volume 8.2; Non-African American GFR(CKD) 9 (>60 ml/min/1.73 sqM); Platelet Count 175 k/uL (150-450); Potassium 3.7 mmol/L (3.5-5.1); RBC 2.78 m/uL (4.30-5.90); RDW 14.9 % (11.5-15.5); Sodium 133 mmol/L (137-145); WBC 9.2 k/uL (3.8-10.6)
[2023-05-21 05:34] LABS: Vancomycin,Random 21.3 ug/mL
[2023-05-21 06:39] LABS: Glucose,Whole Blood 129 mg/dL (70-110)
[2023-05-21] MEDS: INSULIN ASPART (NovoLOG) 100 UNIT/ML VIAL SQ SCH ×7 (06:40→20:03)
[2023-05-21] MEDS ORDERED: POTASSIUM CHLORIDE ER 20 MEQ TAB.ER PO STA (06:43)
[2023-05-21] MEDS: MIDODRINE 5 MG TAB PO SCH ×3 (06:45→17:44)
[2023-05-21] MEDS: PANTOPRAZOLE 40 MG TABLET PO SCH (06:45)
[2023-05-21] MEDS: INSULIN DETEMIR (LEVEMIR) 100 UNIT/ML SYR SQ SCH ×2 (07:08→20:03)
[2023-05-21] MEDS: METOPROLOL TARTRATE 12.5 MG TAB PO SCH ×2 (08:01→20:03)
[2023-05-21] MEDS: SODIUM CHLORIDE 0.9% 500 ML 500 ML IV SCH (08:01)
[2023-05-21] MEDS: AMIODARONE 200 MG TAB PO SCH ×2 (08:01→20:03)
[2023-05-21] MEDS: ASPIRIN 81 MG PO SCH ×2 (08:01→18:00)
[2023-05-21] MEDS: SODIUM BICARBONATE TAB 650 MG TAB PO SCH ×2 (08:01→20:03)
[2023-05-21] MEDS: IPRATROPIUM-ALBUTEROL 3 ML NEB INHALATION SCH ×4 (08:14→19:49)
--- NOTE | 2023-05-21 08:24 | XR ---
EXAMINATION TYPE: XR chest 1V portable DATE OF EXAM: 05/21/2023 HISTORY: post cardiac surgery COMPARISON: 05/20/2023 TECHNIQUE: Single view of the chest is submitted. FINDINGS: Demonstrated are scattered senescent parenchymal change. Improving aeration right lower lobe with persistent effusion and atelectatic change. Left-sided chest tube has been removed without pneumothorax visible at this time. The heart is stable. Hilar and mediastinal structures are within normal limits. Degenerative changes are seen of the dorsal spine. IMPRESSION: 1. Improving aeration right lower lobe with persistent effusion and atelectatic change. Left-sided c hest tube has been removed without pneumothorax visible at this time.
[2023-05-21] MEDS: ACETYLCYSTEINE 800 MG/4 ML VIAL INHALATION SCH (08:35)
[2023-05-21] MEDS ORDERED: MIDODRINE 5 MG TAB PO ONE (09:37)
--- NOTE | 2023-05-21 09:58 | P.PN ---
Subjective Progress Note Date: 05/21/23 Principal diagnosis: Two-vessel coronary artery disease. Previous medical history of nonischemic cardiomyopathy with EF 25-30% with improvement EF of 45-50% with intense medical therapy, chronic LV thrombus, pulmonary embolus on eliquis outpatient, hypertension, hyperlipidemia, diabetes mellitus, CVA with residual right-sided weakness, COVID-19 infection in early 2021, chronic kidney disease stage IV with baseline creatinine of 2.0, and BPH status post TURP POD #8 Off pump coronary artery bypass grafting x 2. Left internal thoracic artery (in-situ) to left anterior descending artery, saphenous vein from aorta to posterior descending artery, endoscopic right greater saphenous vein harvest, left atrial appendage ligation using 35mm AtriClip, graft flow measurements usin g the [employer] flow meter system, and intraoperative transesophageal echocardiogram performed by anesthesia. Postoperative acute blood loss anemia and thrombocytopenia, expected given hemodilution Intra and postoperative hypotension, unexpected Acute kidney injury, likely secondary to hypoperfusion, status post temporary hemodialysis catheter Paroxysmal atrial fibrillation, known common occurrence after cardiac surgery, currently in normal sinus rhythm Mental status change, unsure of eitiology, likely metabolic encephalopathy vs new stroke The patient was seen and examined sitting up in a recliner in the ICU in no acute distress. He denies any pain or shortness of breath currently. Currently sinus rhythm, blood pressure stable on oral midodrine. Hemodialysis to be completed yesterday, no HD yesterday. Was given IV lasix yesterday by nephrology, no increase in urine output. Patient's mentation has improved, oriented to person, place, year, situation. Strength equal bilaterally. Right femoral HD cath present, patient to have permacath placed today. Chest x-ray, labs reviewed. Antibiotics stopped as patient's cultures negative. Remains afebrile, oxygenation improving with patient down to 2 LPM NC this morning. No other new concerns. and 2 daughters updated daily. Objective - Vital Signs Vital signs: Vital Signs Temp 97.8 F 05/21/23 08:00 Pulse 60 05/21/23 08:29 Resp 20 05/21/23 08:00 BP 116/55 05/21/23 08:00 Pulse Ox 92 L 05/21/23 08:00 FiO2 50 05/13/23 15:13 Intake & Output 05/20/23 05/21/2323 18:59 06:59 18:59 Intake Total 104 0 Output Total 48 35 0 Balance 56 -35 0 Weight 116.8 kg Intake: IV 104 0.9 Normal Saline 24 pressure bags Sodium Chloride 0.9% 500 80 ml 500 ml @ 20 mls/hr IV .Q24H JESSICA Rx#:[id number] Oral 0 Output: Urine 23 35 0 Stool 25 Other: Voiding Method Indwelling Catheter Indwelling Catheter Indwelling Catheter # Bowel Movements 1 ABP, PAP, CO, CI - Last Documented Arterial Blood Pressure 116/42 Pulmonary Artery Pressure 29/9 Cardiac Output 4.5 Cardiac Index 2.2 - Exam CONSTITUTIONAL: Appears comfortable, cooperative, no acute distress RESPIRATORY: Lungs sounds diminished bilaterally. Respirations even, nonlabored. Currently on 2 L nasal cannula with oxygen saturation 97%. Able to achieve 1250 mL on incentive spirometry. Strong productive cough. CARDIOVASCULAR: S1, S2 present. Regular rate and rhythm, sinus rhythm on telemetry. Sternum stable. Palpable peripheral pulses bilaterally. Generalized edema present. No calf pain or tenderness noted. Heart hugger, antiembolism stockings, SCDs present. GASTROINTESTINAL: Abdomen soft, nontender, nondistended, obese. Active bowel sounds present 4 quadrants. Tolerating diet. Positive bowel movement 05/21 GENITOURINARY: Nelson present draining clear, yellow urine. Output overnight 58 mL in the last 24 hours INTEGUMENTARY: Skin is warm and dry. Anterior chest incision well approximated and covered with dry intact dressing. Right lower extremity EVH site well approximated without redness or drainage. NEUROLOGIC: Cranial nerves II through XII intact MUSKULOSKELETAL: Able to move all extremities, strength equal bilaterally PSYCHIATRIC: Alert and oriented to person, place, year and situation INVASIVE LINES AND TUBES: Right femoral dialysis catheter present - Allied health notes Allied health notes reviewed: nursing - Labs CBC & Chem 7: 05/21/23 04:59 05/21/23 04:59 Labs: Abnormal Lab Results - Last 24 Hours (Table) 05/20/23 05/20/23 05/20/23 Range/Units 05:00 12:01 16:30 RBC (4.30-5.90) m/uL Hgb (13.0-17.5) gm/dL Hct (39.0-53.0) % Sodium (137-145) mmol/L BUN (9-20) mg/dL Creatinine (0.66-1.25) mg/dL Glucose (74-99) mg/dL POC Glucose (mg/dL) 318 H 263 H (70-110) mg/dL Calcium (8.4-10.2) mg/dL Vitamin B12 1355.0 H (200.0-944.0) pg/mL 05/20/23 05/21/23 05/21/23 Range/Units 20:10 04:59 04:59 RBC 2.78 L (4.30-5.90) m/uL Hgb 8.8 L (13.0-17.5) gm/dL Hct 26.4 L (39.0-53.0) % Sodium 133 L (137-145) mmol/L BUN 61 H (9-20) mg/dL Creatinine 5.94 H (0.66-1.25) mg/dL Glucose 116 H (74-99) mg/dL POC Glucose (mg/dL) 253 H (70-110) mg/dL Calcium 7.0 L (8.4-10.2) mg/dL Vitamin B12 (200.0-944.0) pg/mL 05/21/23 Range/Units 06:38 RBC (4.30-5.90) m/uL Hgb (13.0-17.5) gm/dL Hct (39.0-53.0) % Sodium (137-145) mmol/L BUN (9-20) mg/dL Creatinine (0.66-1.25) mg/dL Glucose (74-99) mg/dL POC Glucose (mg/dL) 129 H (70-110) mg/dL Calcium (8.4-10.2) mg/dL Vitamin B12 (200.0-944.0) pg/mL Microbiology - Last 24 Hours (Table) 05/18/23 08:30 Blood Culture - Preliminary Blood 05/18/23 08:30 Blood Culture - Preliminary Blood 05/18/23 08:30 Gram Stain - Final Sputum Sputum Culture - Final - Imaging and Cardiology Chest x-ray: report reviewed, image reviewed Assessment and Plan Assessment: Two-vessel coronary artery disease, status post off-pump 2 vessel CABG History of nonischemic cardiomyopathy with EF 25-30% with improvement EF of 45- 50% with intense medical therapy, on Entresto outpatient Chronic LV thrombus Pulmonary embolus on eliquis outpatient History of hypertension, currently hypotensive Hyperlipidemia, treated, cholesterol 108, LDL 44 Diabetes mellitus, hemoglobin A1c 7.4% CVA with residual right-sided weakness COVID-19 infection in early 2021 Chronic kidney disease stage IV with baseline creatinine of 2.0 BPH status post TURP Postoperative acute blood loss anemia and thrombocytopenia, expected Intra and postoperative hypotension, unexpected Acute kidney injury, likely secondary to hypoperfusion, status post temporary hemodialysis catheter Paroxysmal atrial fibrillation, status post ligation of left atrial appendage, currently in sinus rhythm Mental status change, unsure of eitiology, likely metabolic encephalopathy vs new stroke Plan: Continue to maximize medical therapy with low dose aspirin, statin, beta keara therapy Continue amiodarone for afib prophylaxis, will restart Eliquis tomorrow Wean O2 as tolerated. Encourage incentive spirometry use 10 times every hour while awake. Bronchodilators per pulmonology. Continue Midodrine 10 mg by mouth 3 times a day to help with blood pressure support. Hold for systolic blood pressure greater than 120 mmHg. Will monitor daily labs and chest x-rays. Electrolyte replacement per nephrology GI/DVT prophylaxis. Increase activity as tolerated. PT/OT/cardiac rehab following Pain control with current medication regimen. No Toradol due to kidney disease. Insulin management per internal medicine service, patient's preoperative hemoglobin A1c was 7.4%, needs tight blood sugar control to prevent infection, promote healing. No metformin due to ANURADHA Continue Nelson catheter for another 24 hours for strict accurate intake and output. Avoid nephrotoxic agents Daily weights Dialysis per nephrology, patient to receive permacath today, will discontinue femoral HD cath before restarting Eliquis Will update family More recommendations to follow
--- NOTE | 2023-05-21 10:38 | P.PN ---
Subjective Progress Note Date: 05/21/23 This is a 68-year-old male patient with a known history of coronary artery disease, hypertension, hyperlipidemia, diabetes mellitus, benign prostatic hyperplasia, pulmonary embolism anticoagulated with Eliquis. He also has a history of COVID-19 infection and subsequent CVA felt to be secondary to hyperco agulability. In March 2023 at undergone cardiac catheterization that revealed a chronic total occlusion of the right coronary artery which fills by collaterals circulation, chronic total occlusion of the mid LAD by the bifurcation of the large diagonal branch with flush occlusion. The LAD fills by ipsilateral collaterals. He was recommended coronary artery bypass grafting. Echocardiogram revealed moderate LV dysfunction with ejection fraction of 40- 45%. He was brought in today for an elective surgery. He had undergone an off- pump coronary artery bypass grafting 2 with the left internal thoracic artery to the left anterior descending artery, saphenous vein graft from the aorta to the posterior descending artery. Left atrial appendage ligation with a 35mm Atriclip. He is seen postoperatively in the intensive care unit. He is intubated on the mechanical ventilator and assist control mode with a rate of 14, tidal volume 500, FiO2 50% and a PEEP of 10. Initial arterial blood gases revealed a PaO2 of 387, P CO2 of 41 and a pH of 7.31 on 100% FiO2. Sodium 137. Potassium 4.3. Bicarb 20. BUN 39. Creatinine 2.33. Glucose 154. Calcium 7.9. Magnesium 2.4. AST 21. ALT 16. Albumin 3.0. He is currently on dopamine at 2 mcg/kg/m. Milrinone at 0.3 mcg/kg/m. Norepinephrine at 0.06 mcg/kg/m propofol currently on hold. Insulin drip at 6 units per hour. Lactated Ringer's at 50 MLS per hour. PA pressure 43/19. Cardiac output 5.9. Cardiac index 2.8. Backup pacing at a rate of 50 bpm. Right and left pleural chest tubes in place with a small leak. Mediastinal chest tubes 2. Just x-ray reveals postsurgical changes. Bilateral chest tubes without evidence of sizable pneumothorax. Crosby-Misha catheter, mediastinal drain, endotracheal and gastric tube secured in place. Patient was reevaluated today on 05/14/2023, patient is doing well, he is postoperative day #1, patient is requiring multiple drips including dopamine at 3 mcg/kg/m, norepinephrine at 0.02 mcg/kg/m, he is on insulin at 4 units per hour, and lactated Ringer's at 40 mL per hour. Cardiac index is 2.2. Cardiac output is 4.5. Urine output is marginal between 15-20 mL per hour. Patient is on 1 L nasal cannula, does not seem to be in distress, sitting at a bedside chair. Chest x-ray showed minimal basilar atelectasis and small pleural effusions with cardiomegaly and postoperative changes. WBC count is 12.9 hemoglobin is 10.7. Basic metabolic profile is normal however his BUN is 43 creatinine is rising up to 2.83, baseline yesterday was 2.33. Patient is achieving about 1000 mL via incentive spirometry Reevaluated today on 05/15/2023, patient is sitting up at the bedside chair, awake, oriented 3, does not seem to be in any distress. Patient is on 2 L nasal cannula, O2 sats is 94%, remains on dopamine drip at 3 mcg/kg/m, his urine output remains marginal and poor, however the patient's creatinine jumped up significantly over the last 24 hours, I believe the patient may have developed acute tubular necrosis from hypotension, nonetheless clinically the patient is doing better than expected. He was seen by nephrology for his renal failure.pleural and mediastinal chest tubes noted, remain in place, Nelson catheter remains in place. Labs were reviewed today, creatinine is up to 4.03 BUN is 48. Hemoglobin is 9.9. WBC count is 15.3.chest x-ray showed mostly postsurgical changes and bilateral chest tubes without evidence of any pneumothorax. Small right-sided pleural effusion is noted. Patient was reevaluated today on 05/16/2023, doing well from the pulmonary perspective, but doing poorly from the renal perspective. Patient continues to develop worsening renal failure, being followed by nephrology, and I believe the patient may be heading towards hemodialysis. Creatinine is up to 5.9 this morning. Bicarb is low. Patient remains on dopamine at 3 mcg/kg/m with very poor urine output. Chest x-ray is showing postsurgical changes and small right- sided pleural effusion no pneumothorax, no evidence of pneumonia . Bicarb is low, creatinine is high, but sugar is 200, his ventricular epicardial pacemaker wires were removed yesterday. Mediastinal chest tube was removed yesterday, continues to have right IJ Cordis in place, and continues to have CVP monitoring. CVP today is 6. Right-sided and left-sided pleural chest tubes remain in place. Nelson catheter remains in place. Patient had only 120 mL of urine output in the last 8 hours. And about 400 in the last 24 hours. The patient is seen today 05/17/2023 in follow-up in the intensive care unit. He is currently sitting up in bed. Awake and alert in no acute distress. Postoperative day #4. He is maintaining O2 saturations in the 90s on 4 L/m per nasal cannula. He has normal saline at KVO. Dopamine drip at 3 mcg/kg/min. Insulin drip at 11 units per hour. D5W with 3 A of sodium bicarb at 75 ML's per hour. Lasix drip at 20 mg per hour. He is oliguric. He did receive a right femoral temporary hemodialysis catheter placed last evening. Plan is for hemodialysis today. White count 13.0. Hemoglobin 7.7. Platelets 140. Sodium 132. Potassium 4.1. Bicarb 21. BUN 67. Creatinine 7.33. Glucose 226. Arterial blood gases revealed a pO2 of 87, pCO2 35. PH 7.42. Left pleural chest tube remains in place to wall suction. No significant leak noted. Right internal Cordis in place. Right radial art line in place. As x-ray reveals no evidence of pneumothorax. Mild cardiomegaly and a right pleural effusion. Continues to work with the incentive spirometer. Continued on bronchodilators. The patient is seen today 05/18/2023 in follow-up in the intensive care unit. He is currently resting in bed. Awake and alert. Postoperative day #5. He is currently maintaining O2 saturations in the 90s on 7 L high flow nasal cannula. Blood gases revealed a PaO2 of 74, pCO2 34 and a pH of 7.39. He remains on lactated Ringer's at KVO. Insulin drip at 4.5 units per hour. Norepinephrine is currently on hold. Ultrasound of the chest is pending. He is status post 2 units of packed red blood cells this admission. Current hemoglobin 7.7. Platelets 130,000. White count 9.0. Sodium 135. Potassium 3.5. Bicarb 20. BUN 50. Creatinine 6.50. Glucose 98. AST to 55. ALT 19. Hepatitis B screen negative. He did not tolerate hemodialysis yesterday. To be attempted again today. Echocardiogram revealed moderately impaired left ventricular systolic function and small pericardial effusion. Computed tomography scan of the brain revealed no acute intracranial process. Current CVP of 10 mmHg. He did have a T-max of 101.3 early this morning. Currently afebrile. Urine culture revealed no growth. Sputum culture pending. Currently on vancomycin. The patient is seen today 05/19/2023 in follow-up in the intensive care unit. He is currently sitting up in bed. Awake, alert, confused, slow to respond. Weak. EEG reveals background slowing of mild to moderate degree suggestive of encephalopathy. Continues to maintain good O2 saturations in the 90s on 3 L/m per nasal cannula. Ultrasound of the chest revealed no significant fluid for thoracentesis. He is receiving hemodialysis today. Yesterday they removed 500 ML's and hoping for thousand today. He is on norepinephrine at 0.02 mcg/kg/m. 0.9 normal saline at 20 ML's per hour. Insulin drip currently on hold. He is on antibiotics in the form of vancomycin and cefepime. He remains on bronchodilators. Working with the incentive spirometer. Continued on oral amiodarone. Anticoagulated with Eliquis. He is status post 2 units of packed red blood cells this admission. Current hemoglobin 7.7. Platelets 147. White count 8.4. Sodium 134. Potassium 3.9. Bicarb 34. BUN 36. Creatinine 5.26. Glucose 155. AST 257. ALT 43. The patient is seen today 05/20/2023 in follow-up in the intensive care unit. He is currently up in a chair at the bedside. Awake and alert in no acute distress. He remains afebrile. He is down to 2 L nasal cannula and maintaining O2 saturations in the 90s. Currently in sinus rhythm. Chest x-ray showing some atelectasis of the right lower lobe. Encouraged increased use the incentive spirometer. Left pleural chest tube remains in place. He did receive hemodialysis yesterday with 2 L of fluid removed. His norepinephrine has been off since 6:30 this morning. He is continued on vancomycin and cefepime. Cultures are revealing no growth. He is status post 2 units of packed red blood cells this admission. Current hemoglobin 8.7. Platelets 151. White count 9.2. Sodium 134. Potassium 3.8. Bicarb 26. BUN 40. Creatinine 4.55. Glucose 203. AST 207. ALT 28. Cortisol 28. He remains on DuoNeb inhalations. The patient is seen today 05/21/2020 in the intensive care unit. Distress. Plan is for hemodialysis with a goal of 3 L to be removed today. He is also to have a permacath placed. He'll be on a Wednesday schedule for his dialysis treatments. Chest x-ray shows improving aeration of the right lower lobe. Left pleural chest tube has been removed. No evidence of pneumothorax. He is remaining in sinus rhythm. He is maintaining O2 saturations in the 90s on 2 L/m per nasal cannula. He's been afebrile. Hemodynamically stable. He is status post 2 units of packed red blood cells this admission. Current hemoglobin 8.8. Platelets 175. White count 9.2. Sodium 133. Potassium 3.7. Bicarb 26. BUN 61. Creatinine 5.94. Glucose 116. Urine, blood, sputum cultures all revealed no growth. He remains on bronchodilators. Continues to work with the incentive spirometer. Objective - Vital Signs Vital signs: Vital Signs Temp 97.8 F 05/21/23 08:00 Pulse 60 05/21/23 08:29 Resp 20 05/21/23 08:00 BP 116/55 05/21/23 08:00 Pulse Ox 92 L 05/21/23 08:00 FiO2 50 05/13/23 15:13 Intake & Output 05/20/23 05/21/23 05/21/23 18:59 06:59 18:59 Intake Total 104 0 Output Total 48 35 0 Balance 56 -35 0 Weight 116.8 kg Intake: IV 104 0.9 Normal Saline 24 pressure bags Sodium Chloride 0.9% 500 80 ml 500 ml @ 20 mls/hr IV .Q24H [facility] Rx#:[id number] Oral 0 Output: Urine 23 35 0 Stool 25 Other: Voiding Method Indwelling Catheter Indwelling Catheter Indwelling Catheter # Bowel Movements 1 ABP, PAP, CO, CI - Last Documented Arterial Blood Pressure 116/42 Pulmonary Artery Pressure 29/9 Cardiac Output 4.5 Cardiac Index 2.2 - Exam GENERAL EXAM: Alert, pleasant 68-year-old male, on 2 L nasal cannula, resting in bed, comfortable, in no apparent distress. HEAD: Normocephalic. EYES: Normal reaction of pupils, equal size. NOSE: Clear with pink turbinates. THROAT: No erythema or exudates. NECK: Right IJ Cordis in place. No masses, no JVD. CHEST: Sternal dressing dry and intact. Heart hugger in place. LUNGS: Equal air entry with crackles in the right lung base. CVS: S1 and S2 normal with no audible murmur, regular rhythm. ABDOMEN: No hepatosplenomegaly, normal bowel sounds, no guarding or rigidity. SPINE: No scoliosis or deformity SKIN: No rashes CENTRAL NERVOUS SYSTEM: No focal deficits, tone is normal in all 4 extremities. EXTREMITIES: Right femoral hemodialysis catheter in place. SCDs in place. Peripheral pulses are intact. - Labs CBC & Chem 7: 05/21/23 04:59 05/21/23 04:59 Labs: Abnormal Lab Results - Last 24 Hours (Table) 05/20/23 05/20/23 05/20/23 Range/Units 05:00 12:01 16:30 RBC (4.30-5.90) m/uL Hgb (13.0-17.5) gm/dL Hct (39.0-53.0) % Sodium (137-145) mmol/L BUN (9-20) mg/dL Creatinine (0.66-1.25) mg/dL Glucose (74-99) mg/dL POC Glucose (mg/dL) 318 H 263 H (70-110) mg/dL Calcium (8.4-10.2) mg/dL Vitamin B12 1355.0 H (200.0-944.0) pg/mL 05/20/23 05/21/23 05/21/23 Range/Units 20:10 04:59 04:59 RBC 2.78 L (4.30-5.90) m/uL Hgb 8.8 L (13.0-17.5) gm/dL Hct 26.4 L (39.0-53.0) % Sodium 133 L (137-145) mmol/L BUN 61 H (9-20) mg/dL Creatinine 5.94 H (0.66-1.25) mg/dL Glucose 116 H (74-99) mg/dL POC Glucose (mg/dL) 253 H (70-110) mg/dL Calcium 7.0 L (8.4-10.2) mg/dL Vitamin B12 (200.0-944.0) pg/mL 05/21/23 Range/Units 06:38 RBC (4.30-5.90) m/uL Hgb (13.0-17.5) gm/dL Hct (39.0-53.0) % Sodium (137-145) mmol/L BUN (9-20) mg/dL Creatinine (0.66-1.25) mg/dL Glucose (74-99) mg/dL POC Glucose (mg/dL) 129 H (70-110) mg/dL Calcium (8.4-10.2) mg/dL Vitamin B12 (200.0-944.0) pg/mL Microbiology - Last 24 Hours (Table) 05/18/23 08:30 Blood Culture - Preliminary Blood 05/18/23 08:30 Blood Culture - Preliminary Blood 05/18/23 08:30 Gram Stain - Final Sputum Sputum Culture - Final Assessment and Plan Assessment: Coronary artery disease status post off-pump coronary artery bypass grafting 2 with a left internal thoracic artery to the left anterior descending artery, saphenous vein graft from the aorta to the posterior descending artery. Left atrial appendage ligation. Postoperative day #8. Acute kidney injury requiring hemodialysis History of chronic kidney disease, stage IV Febrile illness, cultures revealing no growth, completed vancomycin and cefepime Ischemic cardiomyopathy with ejection fraction 40-45% History of pulmonary embolism previously on Eliquis Diabetes mellitus Hypertension CVA BPH Hyperlipidemia Previous COVID-19 infection Plan: The patient was seen and evaluated Chest x-ray, labs and medications reviewed Currently on 2 L nasal cannula Continue bronchodilators Encourage the increased use of the incentive spirometer Increase his activity as tolerated Receiving hemodialysis today Having a permacath placed today We will continue to follow I have personally seen and examined the patient, performed the documentation and the assessment and plan as written. Number of minutes spent on the visit: 10.
[2023-05-21 10:49] LABS: Glucose,Whole Blood 119 mg/dL (70-110)
--- NOTE | 2023-05-21 11:02 | P.PN ---
Subjective Patient is seen in follow-up for acute kidney injury on chronic kidney disease. Tolerating dialysis well. Remains oliguric. No response and urine output despite IV Lasix. Off vasopressors. Oral intake has been fair. Mentation improved. Awake and alert. Vital signs are stable. General: No acute distress. HEENT: On nasal cannula. LUNGS: No audible rhonchi or wheezes. HEART: Regular rate and rhythm. ABDOMEN: No distention. Obese. EXTREMITITES: 1+ edema. Objective - Vital Signs Vital signs: Vital Signs Temp 97.8 F 05/21/23 08:00 Pulse 56 L 05/21/23 10:00 Resp 17 05/21/23 10:00 BP 91/50 05/21/23 10:00 Pulse Ox 95 05/21/23 10:00 FiO2 50 05/13/23 15:13 Intake & Output 05/20/23 05/21/23 05/21/23 18:59 06:59 18:59 Intake Total 104 0 Output Total 48 35 0 Balance 56 -35 0 Weight 116.8 kg Intake: IV 104 0.9 Normal Saline 24 pressure bags Sodium Chloride 0.9% 500 80 ml 500 ml @ 20 mls/hr IV .Q24H [facility] Rx#:[id number] Oral 0 Output: Urine 23 35 0 Stool 25 Other: Voiding Method Indwelling Catheter Indwelling Catheter Indwelling Catheter # Bowel Movements 1 ABP, PAP, CO, CI - Last Documented Arterial Blood Pressure 116/42 Pulmonary Artery Pressure 29/9 Cardiac Output 4.5 Cardiac Index 2.2 - Labs CBC & Chem 7: 05/21/23 04:59 05/21/23 04:59 Labs: Abnormal Lab Results - Last 24 Hours (Table) 05/20/23 05/20/23 05/20/23 Range/Units 05:00 12:01 16:30 RBC (4.30-5.90) m/uL Hgb (13.0-17.5) gm/dL Hct (39.0-53.0) % Sodium (137-145) mmol/L BUN (9-20) mg/dL Creatinine (0.66-1.25) mg/dL Glucose (74-99) mg/dL POC Glucose (mg/dL) 318 H 263 H (70-110) mg/dL Calcium (8.4-10.2) mg/dL Vitamin B12 1355.0 H (200.0-944.0) pg/mL 05/20/23 05/21/23 05/21/23 Range/Units 20:10 04:59 04:59 RBC 2.78 L (4.30-5.90) m/uL Hgb 8.8 L (13.0-17.5) gm/dL Hct 26.4 L (39.0-53.0) % Sodium 133 L (137-145) mmol/L BUN 61 H (9-20) mg/dL Creatinine 5.94 H (0.66-1.25) mg/dL Glucose 116 H (74-99) mg/dL POC Glucose (mg/dL) 253 H (70-110) mg/dL Calcium 7.0 L (8.4-10.2) mg/dL Vitamin B12 (200.0-944.0) pg/mL 05/21/23 05/21/23 Range/Units 06:38 10:47 RBC (4.30-5.90) m/uL Hgb (13.0-17.5) gm/dL Hct (39.0-53.0) % Sodium (137-145) mmol/L BUN (9-20) mg/dL Creatinine (0.66-1.25) mg/dL Glucose (74-99) mg/dL POC Glucose (mg/dL) 129 H 119 H (70-110) mg/dL Calcium (8.4-10.2) mg/dL Vitamin B12 (200.0-944.0) pg/mL Microbiology - Last 24 Hours (Table) 05/18/23 08:30 Blood Culture - Preliminary Blood 05/18/23 08:30 Blood Culture - Preliminary Blood 05/18/23 08:30 Gram Stain - Final Sputum Sputum Culture - Final Assessment and Plan Plan: Assessment: 1. Acute kidney injury secondary to hemodynamic ATN. Creatinine 7.3 dated 05/17/2023. Oliguric. Started on hemodialysis 05/17/2023. No hydronephrosis noted on kidney ultrasound. 2. A. fib with RVR maintained on amiodarone and Lopressor. 3. 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 4. Metabolic acidosis secondary to acute kidney injury s/p bicarbonate drip. Improved post postdialysis. 5. Cardiomyopathy. Ejection fraction of 40-45%. 6. Chronic kidney disease stage IV with baseline creatinine near 2. Suspect underlying diabetic kidney disease. 7. Diabetes mellitus. 8. Volume overload. Improving with ultrafiltration. Plan: Currently seen while undergoing hemodialysis. Challenge UF. Next treatment on Wednesday. No response to IV Lasix given 05/18/2023 and 05/20/2023.. Phosphorus 4.5 dated 05/20/2023. Continue to monitor renal function and urine output. Monitor for renal recovery. Cortisol level not low.
--- NOTE | 2023-05-21 11:07 | P.PN ---
Subjective Pleasant 68 years old male with past medical history of Diabetes Mellitus, Hypertension, hyperlipidemia, benign prostatic hypertrophy, pulmonary embolism on blood thinner He was admitted for coronary artery disease affecting mainly to vessels and underwent coronary artery bypass surgery yesterday and he was on mechanical ventilation for a short lived time, eventually he got extubated. Comfortable in bed with no chest pain or dyspnea. Hemodynamically stable. Patient has mild worsening of creatinine 2.8, 1.3 yesterday 05/15/2023 Fascia temo bed comfortably with no complaints. Blood pressure still borderline. We will see improvement on 15. Creatinine up to 4.0. Nephrology was consulted. Patient is status post bolus of 500 mL of normal saline. His urine analysis is abnormal. Urine culture is negative. Bladder scan is negative. We don't a repeat urine culture Patient remains on aspirin Plavix and midodrine by surgery team 05/16/23 pt is awake alert with no dyspnea, no chest pain ,he denies any specific complaints but his renal function keep worsening and today his creatinine went up to 5.4, he was lasix drip at 20 mg per hour, pt is mostly will need hemodialysis per nephrology team pt is on dobutamine with poor urine output. pt has mild leukocytosis sugar is more 300 so increased levemir to 5 u bid and novolog 5 u tid ac pt is on bicarb drip as well kept on asprin and plavix , and midodrine 05/17/2023 Patient remains in ICU closely monitored case/critical care team, the primary cardiothoracic surgery team and plant physiology teacher as well as senior underwriter. He is status post bypass surgery and today is postoperative day #4. Creatinine is elevated up to 7.3 today. He is getting treatment for hemodialysis started here in the ICU from. His Lasix drip and backup as well He remains on dopamine drip Blood pressure is borderline with systolic blood pressure is stable around 90s to 100. Hemoglobin 7.7, WBC within the reference range today 9000. Glucose was elevated more than 300 despite doubling the dose of Levemir last night to 5 mg twice a day. Therefore he was started on insulin drip This was discussed with patient in the thoracic primary team 05/18/2023 Patient is very lethargic and tired looking today. Open eyes to verbal stimuli and answer questions. He follows commands. Because of his change mentation neurologist has been consulted from a most likely patient will require MRI of the brain and EEG to rule out intracranial lesions or seizure activities. Blood pressure was controlled Labs reviewed Patient remains on insulin drip, dopamine drip and IV vancomycin 05/19/2023 Patient in the ICU, severely weak and lethargic and somewhat drowsy. He's undergoing hemodialysis and creatinine is elevated. Vitals are the same. Hemoglobin 7.7. He is on aspirin 81 mg Plavix and Protonix. I going to stop the insulin drip and start Levemir insulin and go up gradually with insulin sliding scale Objective - Vital Signs Vital signs: Vital Signs Temp 99.0 F 05/19/23 08:00 Pulse 69 05/19/23 10:00 Resp 21 05/19/23 10:00 BP 125/54 05/19/23 10:00 Pulse Ox 97 05/19/23 10:00 FiO2 50 05/13/23 15:13 Intake & Output 05/18/23 05/19/23 05/19/23 18:59 06:59 18:59 Intake Total 1815.943 324.851 191.390 Output Total 1113 119 13 Balance 702.943 205.851 178.390 Weight 116.5 kg Intake: IV 912 292 104 Cefepime 0.5 gm In Sodium 50 Chloride 0.9% 50 ml @ 12 .5 mls/hr IVPB Q24HR [facility] Rx#:[id number] Potassium Chloride 20 meq 100 In Water For Injection 1 100ml.bag @ 50 mls/hr IVPB ONCE STA Rx#: [id number] Sodium Chloride 0.9% 500 190 220 80 ml 500 ml @ 20 mls/hr IV .Q24H [facility] Rx#:[id number] Vancomycin 1,750 mg In 500 Sodium Chloride 0.9% 500 ml 500 ml @ 167 mls/hr IVPB ONCE ONE Rx#: [id number] pressure bags 72 72 24 Intake, IV Titration 103.943 32.851 87.390 Amount Insulin Regular 100 unit 37.808 32.851 9.848 In Sodium Chloride 0.9% 100 ml @ Per Protocol IV .Q0M [facility] Rx#:[id number] Norepinephrine 4 mg In 66.135 77.542 Sodium Chloride 0.9% 250 ml @ 0.03 MCG/KG/MIN 12. 996 mls/hr IV .[id number] [facility] Rx#:[id number] Oral 300 Hemodialysis 500 Output: Chest Tube Drainage 60 70 Pleural Catheter Left 60 70 Urine 53 49 13 Hemodialysis 1000 Other: Voiding Method Indwelling Catheter Indwelling Catheter Indwelling Catheter # Bowel Movements 1 ABP, PAP, CO, CI - Last Documented Arterial Blood Pressure 148/46 Pulmonary Artery Pressure 29/9 Cardiac Output 4.5 Cardiac Index 2.2 - Exam GENERAL: The patient is alert and oriented x3, not in any acute distress. Well developed, well nourished. HEENT: Pupils are round and equally reacting to light. EOMI. No scleral icterus. No conjunctival pallor. Normocephalic, atraumatic. No pharyngeal erythema. No thyromegaly. CARDIOVASCULAR: S1 and S2 present. No murmurs, rubs, or gallops. PULMONARY: Chest is clear to auscultation, no wheezing , no crackles. ABDOMEN: Soft, nontender, nondistended, normoactive bowel sounds. No palpable organomegaly. MUSCULOSKELETAL: No joint swelling or deformity. EXTREMITIES: No cyanosis, clubbing, or pedal edema. NEUROLOGICAL: Gross neurological examination did not reveal any focal deficits. SKIN: No rashes. no petechiae. - Labs CBC & Chem 7: 05/21/23 04:59 05/21/23 04:59 Labs: Abnormal Lab Results - Last 24 Hours (Table) 05/18/23 05/18/23 05/18/23 Range/Units 11:03 12:58 14:06 RBC (4.30-5.90) m/uL Hgb (13.0-17.5) gm/dL Hct (39.0-53.0) % Plt Count (150-450) k/uL Lymphocytes # (1.0-4.8) k/uL Sodium (137-145) mmol/L BUN (9-20) mg/dL Creatinine (0.66-1.25) mg/dL Glucose (74-99) mg/dL POC Glucose (mg/dL) 115 H 131 H 154 H (70-110) mg/dL Calcium (8.4-10.2) mg/dL AST (17-59) U/L Alkaline Phosphatase (38-126) U/L Total Protein (6.3-8.2) g/dL Albumin (3.5-5.0) g/dL Urine Protein (Negative) Urine Glucose (UA) (Negative) Urine Blood (Negative) Ur Leukocyte Esterase (Negative) Urine RBC (0-5) /hpf Urine WBC (0-5) /hpf Ur Squamous Epith Cells (0-4) /hpf Ur Transition Epith Cell (0-1) /hpf Urine Bacteria (None) /hpf 05/18/23 05/18/23 05/18/23 Range/Units 14:40 16:12 17:12 RBC (4.30-5.90) m/uL Hgb (13.0-17.5) gm/dL Hct (39.0-53.0) % Plt Count (150-450) k/uL Lymphocytes # (1.0-4.8) k/uL Sodium (137-145) mmol/L BUN (9-20) mg/dL Creatinine (0.66-1.25) mg/dL Glucose (74-99) mg/dL POC Glucose (mg/dL) 136 H 136 H (70-110) mg/dL Calcium (8.4-10.2) mg/dL AST (17-59) U/L Alkaline Phosphatase (38-126) U/L Total Protein (6.3-8.2) g/dL Albumin (3.5-5.0) g/dL Urine Protein 3+ H (Negative) Urine Glucose (UA) 1+ H (Negative) Urine Blood Large H (Negative) Ur Leukocyte Esterase Large H (Negative) Urine RBC >182 H (0-5) /hpf Urine WBC 50 H (0-5) /hpf Ur Squamous Epith Cells 10 H (0-4) /hpf Ur Transition Epith Cell 10 H (0-1) /hpf Urine Bacteria Rare H (None) /hpf 05/18/23 05/18/23 05/18/23 Range/Units 18:16 19:06 19:56 RBC (4.30-5.90) m/uL Hgb (13.0-17.5) gm/dL Hct (39.0-53.0) % Plt Count (150-450) k/uL Lymphocytes # (1.0-4.8) k/uL Sodium (137-145) mmol/L BUN (9-20) mg/dL Creatinine (0.66-1.25) mg/dL Glucose (74-99) mg/dL POC Glucose (mg/dL) 173 H 141 H 133 H (70-110) mg/dL Calcium (8.4-10.2) mg/dL AST (17-59) U/L Alkaline Phosphatase (38-126) U/L Total Protein (6.3-8.2) g/dL Albumin (3.5-5.0) g/dL Urine Protein (Negative) Urine Glucose (UA) (Negative) Urine Blood (Negative) Ur Leukocyte Esterase (Negative) Urine RBC (0-5) /hpf Urine WBC (0-5) /hpf Ur Squamous Epith Cells (0-4) /hpf Ur Transition Epith Cell (0-1) /hpf Urine Bacteria (None) /hpf 05/18/23 05/19/23 05/19/23 Range/Units 21:03 00:13 00:59 RBC (4.30-5.90) m/uL Hgb (13.0-17.5) gm/dL Hct (39.0-53.0) % Plt Count (150-450) k/uL Lymphocytes # (1.0-4.8) k/uL Sodium (137-145) mmol/L BUN (9-20) mg/dL Creatinine (0.66-1.25) mg/dL Glucose (74-99) mg/dL POC Glucose (mg/dL) 137 H 125 H 176 H (70-110) mg/dL Calcium (8.4-10.2) mg/dL AST (17-59) U/L Alkaline Phosphatase (38-126) U/L Total Protein (6.3-8.2) g/dL Albumin (3.5-5.0) g/dL Urine Protein (Negative) Urine Glucose (UA) (Negative) Urine Blood (Negative) Ur Leukocyte Esterase (Negative) Urine RBC (0-5) /hpf Urine WBC (0-5) /hpf Ur Squamous Epith Cells (0-4) /hpf Ur Transition Epith Cell (0-1) /hpf Urine Bacteria (None) /hpf 05/19/23 05/19/23 05/19/23 Range/Units 01:57 03:09 04:12 RBC (4.30-5.90) m/uL Hgb (13.0-17.5) gm/dL Hct (39.0-53.0) % Plt Count (150-450) k/uL Lymphocytes # (1.0-4.8) k/uL Sodium (137-145) mmol/L BUN (9-20) mg/dL Creatinine (0.66-1.25) mg/dL Glucose (74-99) mg/dL POC Glucose (mg/dL) 112 H 120 H 120 H (70-110) mg/dL Calcium (8.4-10.2) mg/dL AST (17-59) U/L Alkaline Phosphatase (38-126) U/L Total Protein (6.3-8.2) g/dL Albumin (3.5-5.0) g/dL Urine Protein (Negative) Urine Glucose (UA) (Negative) Urine Blood (Negative) Ur Leukocyte Esterase (Negative) Urine RBC (0-5) /hpf Urine WBC (0-5) /hpf Ur Squamous Epith Cells (0-4) /hpf Ur Transition Epith Cell (0-1) /hpf Urine Bacteria (None) /hpf 05/19/23 05/19/23 05/19/23 Range/Units 04:26 04:26 06:08 RBC 2.61 L (4.30-5.90) m/uL Hgb 7.7 L (13.0-17.5) gm/dL Hct 23.8 L (39.0-53.0) % Plt Count 147 L (150-450) k/uL Lymphocytes # 0.8 L (1.0-4.8) k/uL Sodium 134 L (137-145) mmol/L BUN 36 H (9-20) mg/dL Creatinine 5.26 H (0.66-1.25) mg/dL Glucose 116 H (74-99) mg/dL POC Glucose (mg/dL) 120 H (70-110) mg/dL Calcium 7.6 L (8.4-10.2) mg/dL AST 257 H (17-59) U/L Alkaline Phosphatase 135 H (38-126) U/L Total Protein 4.8 L (6.3-8.2) g/dL Albumin 2.4 L (3.5-5.0) g/dL Urine Protein (Negative) Urine Glucose (UA) (Negative) Urine Blood (Negative) Ur Leukocyte Esterase (Negative) Urine RBC (0-5) /hpf Urine WBC (0-5) /hpf Ur Squamous Epith Cells (0-4) /hpf Ur Transition Epith Cell (0-1) /hpf Urine Bacteria (None) /hpf 05/19/23 05/19/23 05/19/23 Range/Units 07:04 08:13 08:57 RBC (4.30-5.90) m/uL Hgb (13.0-17.5) gm/dL Hct (39.0-53.0) % Plt Count (150-450) k/uL Lymphocytes # (1.0-4.8) k/uL Sodium (137-145) mmol/L BUN (9-20) mg/dL Creatinine (0.66-1.25) mg/dL Glucose (74-99) mg/dL POC Glucose (mg/dL) 113 H 134 H 158 H (70-110) mg/dL Calcium (8.4-10.2) mg/dL AST (17-59) U/L Alkaline Phosphatase (38-126) U/L Total Protein (6.3-8.2) g/dL Albumin (3.5-5.0) g/dL Urine Protein (Negative) Urine Glucose (UA) (Negative) Urine Blood (Negative) Ur Leukocyte Esterase (Negative) Urine RBC (0-5) /hpf Urine WBC (0-5) /hpf Ur Squamous Epith Cells (0-4) /hpf Ur Transition Epith Cell (0-1) /hpf Urine Bacteria (None) /hpf 05/19/23 Range/Units 10:21 RBC (4.30-5.90) m/uL Hgb (13.0-17.5) gm/dL Hct (39.0-53.0) % Plt Count (150-450) k/uL Lymphocytes # (1.0-4.8) k/uL Sodium (137-145) mmol/L BUN (9-20) mg/dL Creatinine (0.66-1.25) mg/dL Glucose (74-99) mg/dL POC Glucose (mg/dL) 177 H (70-110) mg/dL Calcium (8.4-10.2) mg/dL AST (17-59) U/L Alkaline Phosphatase (38-126) U/L Total Protein (6.3-8.2) g/dL Albumin (3.5-5.0) g/dL Urine Protein (Negative) Urine Glucose (UA) (Negative) Urine Blood (Negative) Ur Leukocyte Esterase (Negative) Urine RBC (0-5) /hpf Urine WBC (0-5) /hpf Ur Squamous Epith Cells (0-4) /hpf Ur Transition Epith Cell (0-1) /hpf Urine Bacteria (None) /hpf Microbiology - Last 24 Hours (Table) 05/17/23 08:15 Gram Stain - Final Sputum Sputum Culture - Final 05/18/23 08:30 Gram Stain - Preliminary Sputum Assessment and Plan Assessment: Coronary artery disease status post CABG surgery on 05/13 Acute kidney injury on chronic kidney disease stage III. Requiring hemodialysis Mental status most likely metabolic encephalopathy, rule out intracranial lesion Cardiomyopathy with ejection fraction 40-45% Diabetes mellitus History of Hypertension, currently pressure is borderline Hyperlipidemia History of pulmonary embolism on Eliquis Leukocytosis, Improving Plan: Continue with Aspirin and Plavix Neurology consult, patient on MRI of the brain and EEG stump insulin drip and start Levemir insulin with insulin sliding scale Continue with amiodarone drip per critical care team. Started on hemodialysis per nephrology team Continue the breathing treatment Start insulin drip and monitor glucose Incentive spirometry Nephrology consult Several consultants on the case significant cardiothoracic surgery primary team, pulmonary team and cardiology team Labs and medication reviewed.. Continue same treatment. Continue with symptomatic treatment. Resume home medication. Monitor lytes and vitals. DVT and GI prophylaxis. Further recommendations depends on the clinical course of the patient DVT prophylaxis: Deferred to surgery team GI Prophylaxis: Ppi thank you for consulting us and we will follow up with the
[2023-05-21 12:27] LABS: Glucose,Whole Blood 117 mg/dL (70-110)
--- NOTE | 2023-05-21 13:25 | PN ---
PROGRESS NOTE DATE OF SERVICE: 05/21/2023 SUBJECTIVE: This is a 68-year-old gentleman who was admitted with CAD, CABG, had newly started hemodialysis, 2.5 L of fluid is planned to be removed today. The blood sugar is improving at this time. The patient is closely monitored. The patient also had right pleural effusion also. The most recent chest x-ray which was done today was reviewed, shows some improvement. PAST MEDICAL HISTORY: Reviewed. REVIEW OF SYSTEMS: A 14-point review is negative except as mentioned earlier. CURRENT MEDICATIONS: Reviewed. PHYSICAL EXAMINATION: VITAL SIGNS: Pulse is 53, blood pressure 91/50, respirations 17, pulse ox 94% on room air. HEENT: Conjunctivae normal. CARDIOVASCULAR: S1, S2. RESPIRATIONS: Few scattered rhonchi. ABDOMEN: Soft, obese. LABORATORY DATA: Hemoglobin 8.8, creatinine noted. ASSESSMENT: 1. CAD, status post CABG. 2. Acute on chronic kidney disease, newly started hemodialysis. 3. Right pleural effusion. 4. Diabetes mellitus, type 2. 5. History of ischemic cardiomyopathy, ejection fraction 40% to 45%. 6. Hypertension. 7. Multiple medical issues. RECOMMENDATIONS: Recommended to continue current management, continue symptomatic treatment, continue with current dose of insulin. Avoid hypoglycemia. Otherwise, hold the insensate sugars lower continue with p.o. on 8 per Cardiology, bronchodilators, incentive spirometry. Repeat labs will be ordered. Closely follow with multiple consultants. Further recommendations to follow. Prognosis guarded. MMODL / IJN: [id number] /
--- NOTE | 2023-05-21 15:34 | P.PN ---
Subjective Progress Note Date: 05/20/23 Patient was seen for a follow-up. Patient is sitting comfortably in the recliner. He appears more comfortable today. Offers no new symptoms. No syncopal spells, no stroke symptoms. Objective - Vital Signs Vital signs: Vital Signs Temp 97.5 F L 05/20/23 16:00 Pulse 62 05/20/23 16:00 Resp 18 05/20/23 16:00 BP 129/61 05/20/23 16:00 Pulse Ox 97 05/20/23 16:00 FiO2 50 05/13/23 15:13 Intake & Output 05/19/23 05/20/23 05/20/23 18:59 06:59 18:59 Intake Total 1495.207 434.515 104 Output Total 2143 105 33 Balance -647.793 329.515 71 Weight 114.4 kg Intake: IV 338 286 104 0.9 Normal Saline 78 66 24 pressure bags Sodium Chloride 0.9% 500 260 220 80 ml 500 ml @ 20 mls/hr IV .Q24H [facility] Rx#:[id number] Intake, IV Titration 157.207 148.515 Amount Insulin Regular 100 unit 9.848 In Sodium Chloride 0.9% 100 ml @ Per Protocol IV .Q0M [facility] Rx#:[id number] Norepinephrine 4 mg In 147.359 148.515 Sodium Chloride 0.9% 250 ml @ 0.03 MCG/KG/MIN 12. 996 mls/hr IV .[id number] [facility] Rx#:[id number] Hemodialysis 1000 Output: Chest Tube Drainage 90 70 Pleural Catheter Left 90 70 Urine 53 35 23 Stool 10 Hemodialysis 2000 Other: Voiding Method Indwelling Catheter Indwelling Catheter Indwelling Catheter ABP, PAP, CO, CI - Last Documented Arterial Blood Pressure 116/42 Pulmonary Artery Pressure 29/9 Cardiac Output 4.5 Cardiac Index 2.2 - Exam Patient's examination remains unchanged. He is much more alert and awake. - Labs CBC & Chem 7: 05/21/23 04:59 05/21/23 04:59 Labs: Abnormal Lab Results - Last 24 Hours (Table) 05/17/23 05/19/23 05/19/23 Range/Units 12:06 16:51 20:01 RBC (4.30-5.90) m/uL Hgb (13.0-17.5) gm/dL Hct (39.0-53.0) % Sodium (137-145) mmol/L BUN (9-20) mg/dL Creatinine (0.66-1.25) mg/dL Glucose (74-99) mg/dL POC Glucose (mg/dL) 181 H 285 H (70-110) mg/dL Calcium (8.4-10.2) mg/dL AST (17-59) U/L Alkaline Phosphatase (38-126) U/L Total Protein (6.3-8.2) g/dL Albumin (3.5-5.0) g/dL Crossmatch See Detail 05/19/23 05/20/23 05/20/23 Range/Units 23:48 05:00 05:00 RBC 2.83 L (4.30-5.90) m/uL Hgb 8.7 L (13.0-17.5) gm/dL Hct 26.4 L (39.0-53.0) % Sodium 134 L (137-145) mmol/L BUN 40 H (9-20) mg/dL Creatinine 4.55 H (0.66-1.25) mg/dL Glucose 203 H (74-99) mg/dL POC Glucose (mg/dL) 224 H (70-110) mg/dL Calcium 6.9 L (8.4-10.2) mg/dL AST 207 H (17-59) U/L Alkaline Phosphatase 157 H (38-126) U/L Total Protein 4.7 L (6.3-8.2) g/dL Albumin 2.3 L (3.5-5.0) g/dL Crossmatch 05/20/23 05/20/23 Range/Units 06:13 12:01 RBC (4.30-5.90) m/uL Hgb (13.0-17.5) gm/dL Hct (39.0-53.0) % Sodium (137-145) mmol/L BUN (9-20) mg/dL Creatinine (0.66-1.25) mg/dL Glucose (74-99) mg/dL POC Glucose (mg/dL) 233 H 318 H (70-110) mg/dL Calcium (8.4-10.2) mg/dL AST (17-59) U/L Alkaline Phosphatase (38-126) U/L Total Protein (6.3-8.2) g/dL Albumin (3.5-5.0) g/dL Crossmatch Microbiology - Last 24 Hours (Table) 05/18/23 08:30 Gram Stain - Final Sputum Sputum Culture - Final 05/18/23 20:25 Urine Culture - Final Urine,Catheterized 05/18/23 08:30 Blood Culture - Preliminary Blood 05/18/23 08:30 Blood Culture - Preliminary Blood Assessment and Plan Assessment: * Episode of altered mental status, aphasia, that seems to have improved, but not resolved yet. Patient's examination reveals slight focal findings as mentioned above. Rule out metabolic encephalopathy. Rule out acute CVA. * Paroxysmal atrial fibrillation, currently in sinus rhythm. 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 Patient presented with elective coronary artery bypass graft surgery on 05/13/2023. Patient was off Eliquis for the surgery. Patient had an episode of altered mental status on 05/18/2023, with possible some aphasia, which seems to have resolved. Patient at that time also had transient run of atrial fibrillation yesterday. Rule out acute ischemic stroke. * Patient has been resumed on Eliquis 5 mg twice a day and aspirin 81 mg daily. No need for Plavix from neurology point. * CT head revealed no acute intracranial process per nonspecific white matter changes, likely secondary to chronic small vessel ischemic disease. I personally requested he had come agree with the findings. There is evidence of old possible lacune in the bilateral external capsule. * MRI canceled by surgical team, as probably will not change the management. Patient is doing better. * 2-D echo revealed technically limited study. Moderately impaired left ventricular systolic function with linsey-apical hypokinesis. Small perica rdial effusion. * Carotid Doppler revealed less than 50% stenosis of bilateral carotid bifurcation. Antegrade flow in both vertebral arteries. * Ammonia <9, TSH normal. B12 1355, folate 5.10 borderline. We will start folate replacement. * Hemoglobin A1c 7.4 on 05/04/2023. Recommend optimize control of diabetes to target A1c < 7.0 * Lipid panel with cholesterol 108, LDL 44, HDL 35, triglycerides 140. Continue Crestor 40 mg daily. * EEG was abnormal due to background slowing of mild to moderate degree, suggestive of encephalopathy. No epileptiform activity was seen. No indication for AED. * Continue PT, OT, speech therapy. Neurologically otherwise clear.
[2023-05-21] MEDS ORDERED: LIDOCAINE 1% INJ 10MG/ML (20 ML MDV) SQ ONE (16:01)
[2023-05-21] MEDS ORDERED: MIDAZOLAM 2 MG/2 ML VIAL IVP ONE (16:02)
[2023-05-21 17:59] LABS: Glucose,Whole Blood 180 mg/dL (70-110)
[2023-05-21] MEDS: FOLIC ACID 1 MG TAB PO SCH (18:00)
[2023-05-21 19:49] LABS: Glucose,Whole Blood 240 mg/dL (70-110)
--- NOTE | 2023-05-21 19:51 | OP ---
OPERATIVE REPORT DATE OF SERVICE : PREOPERATIVE DIAGNOSIS: [id number] renal failure. POSTOPERATIVE DIAGNOSIS: [id number] renal failure. PROCEDURES PERFORMED: 1. Ultrasound-guided 23 cm dialysis catheter, right jugular approach. 2. Removal of right femoral catheter. DESCRIPTION OF PROCEDURE: The patient was brought to the laborer cutting tool. Neck, chest, and groin were prepped, and drapes were applied in sterile manner. Ultrasound-guided micropuncture was introduced in the right jugular vein. Micropuncture guide was passed, and 4-Bahamian sheath was advanced on top of the guidewire. Then, a tunnel was created. Through the tunnel, we brought 23 cm dialysis catheter. After that, guidewire was passed, which was parked in the inferior vena cava. A dilator was advanced on top of the guidewire. Then, we brought the sheath on top of the guidewire. Through the sheath, we introduced dialysis catheter. The sheath was removed. Tip of the catheter was in superior vena cava and atrial junction, flushed with heparin saline and hep-locked, and secured with 3-0 nylon. After that, right groin stitches were removed. Catheter was removed. Pressure was held. The patient tolerated the procedure well. MMODL / IJN: [id number] /
--- NOTE | 2023-05-21 20:22 | P.PN ---
Subjective Progress Note Date: 05/21/23 Patient was seen for a follow-up. Patient is sitting comfortably in the recliner. He appears very comfortable today. Offers no new symptoms. No syncopal spells, no stroke symptoms. Denies any headache. Objective - Vital Signs Vital signs: Vital Signs Temp 97.8 F 05/21/23 16:00 Pulse 64 05/21/23 19:59 Resp 21 05/21/23 19:00 BP 134/65 05/21/23 19:00 Pulse Ox 94 L 05/21/23 19:00 FiO2 50 05/13/23 15:13 Intake & Output 05/21/23 05/21/23 05/22/23 06:59 18:59 06:59 Intake Total 0 500 150 Output Total 35 3300 5 Balance -35 -2800 145 Weight 116.8 kg Intake: Oral 0 150 Hemodialysis 500 Output: Urine 35 0 5 Hemodialysis 3300 Other: Voiding Method Indwelling Catheter Indwelling Catheter Indwelling Catheter # Bowel Movements 1 ABP, PAP, CO, CI - Last Documented Arterial Blood Pressure 116/42 Pulmonary Artery Pressure 29/9 Cardiac Output 4.5 Cardiac Index 2.2 - Exam Patient's mental status, speech and language functions are normal. Patient can name and repeat. On cranial nerve examination, his visual lan are full on confrontation. Extraocular muscles are intact. Face is symmetric and tongue protrudes the midline. On muscle strength testing, there is no pronator drift and the strength is normal in arms and legs. No ataxia for [id number] testing. Patient has very significant peripheral edema. Patient has a permacath placed. - Labs CBC & Chem 7: 05/21/23 04:59 05/21/23 04:59 Labs: Abnormal Lab Results - Last 24 Hours (Table) 05/21/23 05/21/23 05/21/23 Range/Units 04:59 04:59 06:38 RBC 2.78 L (4.30-5.90) m/uL Hgb 8.8 L (13.0-17.5) gm/dL Hct 26.4 L (39.0-53.0) % Sodium 133 L (137-145) mmol/L BUN 61 H (9-20) mg/dL Creatinine 5.94 H (0.66-1.25) mg/dL Glucose 116 H (74-99) mg/dL POC Glucose (mg/dL) 129 H (70-110) mg/dL Calcium 7.0 L (8.4-10.2) mg/dL 05/21/23 05/21/23 05/21/23 Range/Units 10:47 12:25 17:59 RBC (4.30-5.90) m/uL Hgb (13.0-17.5) gm/dL Hct (39.0-53.0) % Sodium (137-145) mmol/L BUN (9-20) mg/dL Creatinine (0.66-1.25) mg/dL Glucose (74-99) mg/dL POC Glucose (mg/dL) 119 H 117 H 180 H (70-110) mg/dL Calcium (8.4-10.2) mg/dL 05/21/23 Range/Units 19:47 RBC (4.30-5.90) m/uL Hgb (13.0-17.5) gm/dL Hct (39.0-53.0) % Sodium (137-145) mmol/L BUN (9-20) mg/dL Creatinine (0.66-1.25) mg/dL Glucose (74-99) mg/dL POC Glucose (mg/dL) 240 H (70-110) mg/dL Calcium (8.4-10.2) mg/dL Microbiology - Last 24 Hours (Table) 05/18/23 08:30 Blood Culture - Preliminary Blood 05/18/23 08:30 Blood Culture - Preliminary Blood Assessment and Plan Assessment: * Episode of altered mental status, aphasia, that seems to have improved, but not resolved yet. Patient's examination reveals slight focal findings as mentioned above. Rule out metabolic encephalopathy. Rule out acute CVA. * Paroxysmal atrial fibrillation, currently in sinus rhythm. * Acute on chronic renal failure * Anemia * CAD, Status post CABG * Hypertension * Diabetes * History of CVA * BPH * Ischemic cardiomyopathy Plan: * Patient is stable from neurological standpoint. 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 Patient presented with elective coronary artery bypass graft surgery on 05/13/2023. Patient was off Eliquis for the surgery. Patient had an episode of altered mental status on 05/18/2023, with possible some aphasia, which seems to have resolved. Patient at that time also had transient run of atrial fibrillation yesterday. Rule out acute ischemic stroke. * Patient has been resumed on Eliquis 5 mg twice a day and aspirin 81 mg daily. No need for Plavix from neurology point. * CT head revealed no acute intracranial process per nonspecific white matter changes, likely secondary to chronic small vessel ischemic disease. I personally requested he had come agree with the findings. There is evidence of old possible lacune in the bilateral external capsule. * MRI canceled by surgical team, as probably will not change the management. Patient is doing better. * 2-D echo revealed technically limited study. Moderately impaired left ventricular systolic function with linsey-apical hypokinesis. Small pericardial effusion. * Carotid Doppler revealed less than 50% stenosis of bilateral carotid bifurcation. Antegrade flow in both vertebral arteries. * Ammonia <9, TSH normal. B12 1355, folate 5.10 borderline. We will start folate replacement. * Hemoglobin A1c 7.4 on 05/04/2023. Recommend optimize control of diabetes to target A1c < 7.0 * Lipid panel with cholesterol 108, LDL 44, HDL 35, triglycerides 140. Continue Crestor 40 mg daily. * EEG was abnormal due to background slowing of mild to moderate degree, suggestive of encephalopathy. No epileptiform activity was seen. No indication for AED. * Continue PT, OT, speech therapy. Neurologically otherwise clear. Neurology will sign off. Please reconsult neurology if any concerns.
[2023-05-22 05:44] LABS: HCT 27.5 % (39.0-53.0); HGB 9.4 gm/dL (13.0-17.5); MCH 32.2 pg (25.0-35.0); MCHC 34.1 g/dL (31.0-37.0); MCV 94.5 fL (80.0-100.0); Mean Platelet Volume 7.7; Platelet Count 155 k/uL (150-450); RDW 14.5 % (11.5-15.5); WBC 10.2 k/uL (3.8-10.6)
[2023-05-22 06:13] LABS: Glucose,Whole Blood 173 mg/dL (70-110)
[2023-05-22 06:30] LABS: African American GFR (CKD) 12 (>60 ml/min/1.73 sqM); Anion Gap 11 mmol/L; Blood Urea Nitrogen 49 mg/dL (9-20); Calcium 7.1 mg/dL (8.4-10.2); Carbon Dioxide 25 mmol/L (22-30); Chloride 97 mmol/L (98-107); Glucose 167 mg/dL (74-99); Non-African American GFR(CKD) 10 (>60 ml/min/1.73 sqM); Potassium 3.9 mmol/L (3.5-5.1); Sodium 133 mmol/L (137-145)
[2023-05-22] MEDS: MIDODRINE 5 MG TAB PO SCH ×3 (06:36→16:54)
[2023-05-22] MEDS: PANTOPRAZOLE 40 MG TABLET PO SCH (06:36)
[2023-05-22] MEDS: INSULIN ASPART (NovoLOG) 100 UNIT/ML VIAL SQ SCH ×7 (06:54→20:57)
[2023-05-22] MEDS: INSULIN DETEMIR (LEVEMIR) 100 UNIT/ML SYR SQ SCH ×2 (06:55→20:57)
--- NOTE | 2023-05-22 07:06 | XR ---
EXAMINATION TYPE: XR chest 1V portable DATE OF EXAM: 05/22/2023 5:36 AM COMPARISON: Chest radiographs from 05/21/2023 TECHNIQUE: XR chest 1V portable Portable AP radiograph of the chest. CLINICAL INDICATION:Male, 68 years old with history of post cardiac surgery; FINDINGS: Lungs/Pleura: Blunting of the right costophrenic angle. No pneumothorax or focal consolidation. Pulmonary vascularity: Unremarkable. Heart/mediastinum: Cardiomediastinal silhouette is enlarged and stable. Left atrial appendage occlusi on devices present. Musculoskeletal: No acute osseous pathology. Midline sternotomy wires are noted and stable. Other findings: None Lines/Tubes: Interval placement of right IJ catheter distal tip at the superior cavoatrial junction. IMPRESSION: 1. Interval placement of right IJ catheter with distal tip at the superior cavoatrial junction. No pn eumothorax. 2. Small right pleural effusion with associated atelectasis. 3. Postsurgical changes.
--- NOTE | 2023-05-22 07:59 | IR ---
EXAMINATION TYPE: IR cvc insert central tunneled DATE OF EXAM: 05/21/2023 COMPARISON: NONE HISTORY: Renal failure, 0.4 minutes fluoroscopy time, total DAP 223.77 uGym2 Fluoroscopy was provided to the referring clinician.
--- NOTE | 2023-05-22 08:00 | P.PN ---
Subjective Progress Note Date: 05/22/23 Principal diagnosis: Two-vessel coronary artery disease. Previous medical history of nonischemic cardiomyopathy with EF 25-30% with improvement EF of 45-50% with intense medical therapy, chronic LV thrombus, pulmonary embolus on eliquis outpatient, hypertension, hyperlipidemia, diabetes mellitus, CVA with residual right-sided weakness, COVID-19 infection in early 2021, chronic kidney disease stage IV with baseline creatinine of 2.0, and BPH status post TURP POD #9 Off pump coronary artery bypass grafting x 2. Left internal thoracic artery (in-situ) to left anterior descending artery, saphenous vein from aorta to posterior descending artery, endoscopic right greater saphenous vein harvest, left atrial appendage ligation using 35mm AtriClip, graft flow measurements usin g the Nudge-StepsAway flow meter system, and intraoperative transesophageal echocardiogram performed by anesthesia. Postoperative acute blood loss anemia and thrombocytopenia, expected given hemodilution Intra and postoperative hypotension, unexpected Acute kidney injury, likely secondary to hypoperfusion, status post temporary hemodialysis catheter, status post permacath with removal of right groin hemodialysis catheter Paroxysmal atrial fibrillation, known common occurrence after cardiac surgery, currently in normal sinus rhythm Mental status change, unsure of eitiology, likely metabolic encephalopathy vs new stroke, mostly resolved The patient was seen and examined sitting up in a recliner in the ICU in no acute distress eating breakfast and making jokes. He denies any pain or shortne ss of breath currently. Currently sinus rhythm, blood pressure stable on oral midodrine. Remains on room air and able to achieve 1250 mL on incentive spirometry. Hemodialysis was completed yesterday with removal of 2.8 L, next hemodialysis planned for Wednesday. Patient's mentation has improved, oriented to person, place, year, situation. Strength equal bilaterally, patient has ambulated short distance in the hallway with assistance. Right chest permacath placed yesterday, femoral hemodialysis catheter was removed. Chest x-ray, labs reviewed. No other new concerns. and 2 daughters updated daily. Objective - Vital Signs Vital signs: Vital Signs Temp 97.8 F 05/22/23 04:00 Pulse 69 05/22/23 07:00 Resp 23 05/22/23 07:00 BP 127/67 05/22/23 07:00 Pulse Ox 95 05/22/23 07:00 FiO2 50 05/13/23 15:13 Intake & Output 05/21/23 05/22/23 05/22/23 18:59 06:59 18:59 Intake Total 500 150 Output Total 3300 30 0 Balance -2800 120 0 Weight 112.2 kg Intake: Oral 150 Hemodialysis 500 Output: Urine 0 30 0 Hemodialysis 3300 Other: Voiding Method Indwelling Catheter Indwelling Catheter # Bowel Movements 1 ABP, PAP, CO, CI - Last Documented Arterial Blood Pressure 116/42 Pulmonary Artery Pressure 29/9 Cardiac Output 4.5 Cardiac Index 2.2 - Exam CONSTITUTIONAL: Appears comfortable, cooperative, no acute distress RESPIRATORY: Lungs sounds diminished bilaterally. Respirations even, nonlabored. Currently on room air with oxygen saturation 94%. Able to achieve 1250 mL on incentive spirometry. Strong productive cough. CARDIOVASCULAR: S1, S2 present. Regular rate and rhythm, sinus rhythm on telemetry. Sternum stable. Palpable peripheral pulses bilaterally. Generalized edema present. No calf pain or tenderness noted. Heart hugger, antiembolism stockings, SCDs present. GASTROINTESTINAL: Abdomen soft, nontender, nondistended, obese. Active bowel sounds present 4 quadrants. Tolerating diet. Positive bowel movement 05/21 GENITOURINARY: Nelson present draining minimal yellow urine. Output 30 mL in the last 24 hours INTEGUMENTARY: Skin is warm and dry. Anterior chest incision well approximated and covered with dry intact dressing. Right lower extremity EVH site well approximated without redness or drainage. NEUROLOGIC: Cranial nerves II through XII intact MUSKULOSKELETAL: Able to move all extremities, strength equal bilaterally PSYCHIATRIC: Alert and oriented to person, place, year and situation INVASIVE LINES AND TUBES: Right chest PermCath present - Allied health notes Allied health notes reviewed: nursing - Labs CBC & Chem 7: 05/22/23 05:33 05/22/23 05:33 Labs: Abnormal Lab Results - Last 24 Hours (Table) 05/21/23 05/21/23 05/21/23 Range/Units 10:47 12:25 17:59 RBC (4.30-5.90) m/uL Hgb (13.0-17.5) gm/dL Hct (39.0-53.0) % Sodium (137-145) mmol/L Chloride (98-107) mmol/L BUN (9-20) mg/dL Creatinine (0.66-1.25) mg/dL Glucose (74-99) mg/dL POC Glucose (mg/dL) 119 H 117 H 180 H (70-110) mg/dL Calcium (8.4-10.2) mg/dL 05/21/23 05/22/23 05/22/23 Range/Units 19:47 05:33 05:33 RBC 2.90 L (4.30-5.90) m/uL Hgb 9.4 L (13.0-17.5) gm/dL Hct 27.5 L (39.0-53.0) % Sodium 133 L (137-145) mmol/L Chloride 97 L (98-107) mmol/L BUN 49 H (9-20) mg/dL Creatinine 5.19 H (0.66-1.25) mg/dL Glucose 167 H (74-99) mg/dL POC Glucose (mg/dL) 240 H (70-110) mg/dL Calcium 7.1 L (8.4-10.2) mg/dL 05/22/23 Range/Units 06:12 RBC (4.30-5.90) m/uL Hgb (13.0-17.5) gm/dL Hct (39.0-53.0) % Sodium (137-145) mmol/L Chloride (98-107) mmol/L BUN (9-20) mg/dL Creatinine (0.66-1.25) mg/dL Glucose (74-99) mg/dL POC Glucose (mg/dL) 173 H (70-110) mg/dL Calcium (8.4-10.2) mg/dL Microbiology - Last 24 Hours (Table) 05/18/23 08:30 Blood Culture - Preliminary Blood 05/18/23 08:30 Blood Culture - Preliminary Blood - Imaging and Cardiology Chest x-ray: report reviewed, image reviewed Assessment and Plan Assessment: Two-vessel coronary artery disease, status post off-pump 2 vessel CABG History of nonischemic cardiomyopathy with EF 25-30% with improvement EF of 45- 50% with intense medical therapy, on Entresto outpatient Chronic LV thrombus Pulmonary embolus on eliquis outpatient History of hypertension, currently hypotensive Hyperlipidemia, treated, cholesterol 108, LDL 44 Diabetes mellitus, hemoglobin A1c 7.4% CVA with residual right-sided weakness COVID-19 infection in early 2021 Chronic kidney disease stage IV with baseline creatinine of 2.0 BPH status post TURP Postoperative acute blood loss anemia and thrombocytopenia, expected Intra and postoperative hypotension, unexpected Acute kidney injury, likely secondary to hypoperfusion, status post temporary hemodialysis catheter, status post permacath placement Paroxysmal atrial fibrillation, status post ligation of left atrial appendage, currently in sinus rhythm Mental status change, unsure of eitiology, likely metabolic encephalopathy vs new stroke, mostly resolved Medical debility Plan: Continue to maximize medical therapy with low dose aspirin, statin, beta keara therapy Continue amiodarone for afib prophylaxis, will restart Eliquis today Encourage incentive spirometry use 10 times every hour while awake. Bronchodilators per pulmonology. Continue Midodrine 10 mg by mouth 3 times a day to help with blood pressure support. Hold for systolic blood pressure greater than 120 mmHg. Will monitor daily labs and chest x-rays. Electrolyte replacement per nephrology. Avoid nephrotoxic agents GI/DVT prophylaxis. Increase activity as tolerated. PT/OT/cardiac rehab following Pain control with current medication regimen. No Toradol due to kidney disease. Insulin management per internal medicine service, patient's preoperative hemoglobin A1c was 7.4%, needs tight blood sugar control to prevent infection, promote healing. No metformin due to ANURADHA Likely will discontinue Nelson catheter as patient is not producing much urine and represents increased risk for infection Strict accurate intake and output Daily weights Dialysis per nephrology Patient to shower today, and daily thereafter Will place transfer orders for 3 S. cardiac stepdown unit, may transfer when bed available Will consult inpatient rehab physician Wednesday for possibility of discharge to [facility] Will update family More recommendations to follow
[2023-05-22] MEDS: SODIUM BICARBONATE TAB 650 MG TAB PO SCH ×2 (08:23→20:56)
[2023-05-22] MEDS: ACETAMINOPHEN TAB 500 MG TAB PO PRN (08:23)
[2023-05-22] MEDS: AMIODARONE 200 MG TAB PO SCH ×2 (08:23→20:56)
[2023-05-22] MEDS: FOLIC ACID 1 MG TAB PO SCH (08:23)
[2023-05-22] MEDS: ASPIRIN 81 MG PO SCH (08:23)
[2023-05-22] MEDS: APIXABAN 2.5 MG TABLET PO SCH ×2 (08:24→20:56)
[2023-05-22] MEDS: METOPROLOL TARTRATE 12.5 MG TAB PO SCH ×2 (08:24→20:56)
[2023-05-22] MEDS: IPRATROPIUM-ALBUTEROL 3 ML NEB INHALATION SCH ×4 (08:29→22:01)
--- NOTE | 2023-05-22 10:56 | P.PN ---
Subjective Progress Note Date: 05/22/23 SUBJECTIVE: LABS: Hemoglobin 9.4, creatinine 5.1 BP 134/65, heart rate 63 REVIEW OF SYSTEMS At the time of my exam: CONSTITUTIONAL: Denies fever or chills. CARDIOVASCULAR: Denies chest pain, +shortness of breath, no orthopnea, PND or palpitations. RESPIRATORY: Denies cough. GASTROINTESTINAL: Denies abdominal pain, diarrhea, constipation, nausea or vomiting. MUSCULOSKELETAL: Denies myalgias. NEUROLOGIC: Denies numbness, tingling or weakness. ENDOCRINE: Denies fatigue, weight change, polydipsia or polyurina. GENITOURINARY: Denies burning, hematuria or urgency with micturation. HEMATOLOGIC: Denies history of anemia or bleeding. PHYSICAL EXAMINATION Vital signs reviewed. CONSTITUTIONAL: No apparent distress. HEENT: Head is normocephalic. Pupils are equal, round. Sclerae anicteric. Mucous membranes of the mouth are moist. No JVD. No carotid bruit. CHEST EXAMINATION: Lungs are clear to auscultation. No chest wall tenderness is noted on palpation or with deep breathing. HEART EXAMINATION: Regular rate and rhythm. S1, S2 heard. No murmurs, gallops or rub. ABDOMEN: Soft, nontender. Positive bowel sounds. EXTREMITIES: 2+ peripheral pulses, no lower extremity edema and no calf tenderness. NEUROLOGIC EXAMINATION: Patient is awake, alert and oriented x3. ASSESSMENT: 1. CAD with PLOW AND BORING MACHINE TENDER LAD, PLOW AND BORING MACHINE TENDER RCA status post ARAUZ to LAD and SVG to PDA 05/13 2. Ischemic cardiomyopathy EF previously 25-30% improved to 45-50% 3. Chronic systolic heart failure 4. Diabetes mellitus type 2 5. Hypertension 6. Chronic kidney disease 7. Previous history of stroke 8. Previous history of LV thrombus PLAN: Continue current medications include aspirin, Eliquis 2.5 mg. Metoprolol 25 mg. Continue by mouth amiodarone 200 mg. [place] Entresto and Aldactone due to ANURADHA. Continue supportive care. Objective - Vital Signs Vital signs: Vital Signs Temp 98.2 F 05/22/23 08:00 Pulse 63 05/22/23 09:00 Resp 21 05/22/23 09:00 BP 134/65 05/22/23 09:00 Pulse Ox 94 L 05/22/23 09:00 FiO2 50 05/13/23 15:13 Intake & Output 05/21/23 05/22/23 05/22/23 18:59 06:59 18:59 Intake Total 500 150 100 Output Total 3300 30 5 Balance -2800 120 95 Weight 112.2 kg Intake: Oral 150 100 Hemodialysis 500 Output: Urine 0 30 5 Hemodialysis 3300 Other: Voiding Method Indwelling Catheter Indwelling Catheter Indwelling Catheter # Bowel Movements 1 ABP, PAP, CO, CI - Last Documented Arterial Blood Pressure 116/42 Pulmonary Artery Pressure 29/9 Cardiac Output 4.5 Cardiac Index 2.2 - Labs CBC & Chem 7: 05/22/23 05:33 05/22/23 05:33 Labs: Abnormal Lab Results - Last 24 Hours (Table) 05/21/23 05/21/23 05/21/23 Range/Units 12:25 17:59 19:47 RBC (4.30-5.90) m/uL Hgb (13.0-17.5) gm/dL Hct (39.0-53.0) % Sodium (137-145) mmol/L Chloride (98-107) mmol/L BUN (9-20) mg/dL Creatinine (0.66-1.25) mg/dL Glucose (74-99) mg/dL POC Glucose (mg/dL) 117 H 180 H 240 H (70-110) mg/dL Calcium (8.4-10.2) mg/dL 05/22/23 05/22/23 05/22/23 Range/Units 05:33 05:33 06:12 RBC 2.90 L (4.30-5.90) m/uL Hgb 9.4 L (13.0-17.5) gm/dL Hct 27.5 L (39.0-53.0) % Sodium 133 L (137-145) mmol/L Chloride 97 L (98-107) mmol/L BUN 49 H (9-20) mg/dL Creatinine 5.19 H (0.66-1.25) mg/dL Glucose 167 H (74-99) mg/dL POC Glucose (mg/dL) 173 H (70-110) mg/dL Calcium 7.1 L (8.4-10.2) mg/dL Microbiology - Last 24 Hours (Table) 05/18/23 08:30 Blood Culture - Preliminary Blood 05/18/23 08:30 Blood Culture - Preliminary Blood
--- NOTE | 2023-05-22 11:16 | P.PN ---
Subjective Progress Note Date: 05/22/23 This is a 68-year-old male patient with a known history of coronary artery disease, hypertension, hyperlipidemia, diabetes mellitus, benign prostatic hyperplasia, pulmonary embolism anticoagulated with Eliquis. He also has a history of COVID-19 infection and subsequent CVA felt to be secondary to hyperco agulability. In March 2023 at undergone cardiac catheterization that revealed a chronic total occlusion of the right coronary artery which fills by collaterals circulation, chronic total occlusion of the mid LAD by the bifurcation of the large diagonal branch with flush occlusion. The LAD fills by ipsilateral collaterals. He was recommended coronary artery bypass grafting. Echocardiogram revealed moderate LV dysfunction with ejection fraction of 40- 45%. He was brought in today for an elective surgery. He had undergone an off- pump coronary artery bypass grafting 2 with the left internal thoracic artery to the left anterior descending artery, saphenous vein graft from the aorta to the posterior descending artery. Left atrial appendage ligation with a 35mm Atriclip. He is seen postoperatively in the intensive care unit. He is intubated on the mechanical ventilator and assist control mode with a rate of 14, tidal volume 500, FiO2 50% and a PEEP of 10. Initial arterial blood gases revealed a PaO2 of 387, P CO2 of 41 and a pH of 7.31 on 100% FiO2. Sodium 137. Potassium 4.3. Bicarb 20. BUN 39. Creatinine 2.33. Glucose 154. Calcium 7.9. Magnesium 2.4. AST 21. ALT 16. Albumin 3.0. He is currently on dopamine at 2 mcg/kg/m. Milrinone at 0.3 mcg/kg/m. Norepinephrine at 0.06 mcg/kg/m propofol currently on hold. Insulin drip at 6 units per hour. Lactated Ringer's at 50 MLS per hour. PA pressure 43/19. Cardiac output 5.9. Cardiac index 2.8. Backup pacing at a rate of 50 bpm. Right and left pleural chest tubes in place with a small leak. Mediastinal chest tubes 2. Just x-ray reveals postsurgical changes. Bilateral chest tubes without evidence of sizable pneumothorax. Canaan-Misha catheter, mediastinal drain, endotracheal and gastric tube secured in place. Patient was reevaluated today on 05/14/2023, patient is doing well, he is postoperative day #1, patient is requiring multiple drips including dopamine at 3 mcg/kg/m, norepinephrine at 0.02 mcg/kg/m, he is on insulin at 4 units per hour, and lactated Ringer's at 40 mL per hour. Cardiac index is 2.2. Cardiac output is 4.5. Urine output is marginal between 15-20 mL per hour. Patient is on 1 L nasal cannula, does not seem to be in distress, sitting at a bedside chair. Chest x-ray showed minimal basilar atelectasis and small pleural effusions with cardiomegaly and postoperative changes. WBC count is 12.9 hemoglobin is 10.7. Basic metabolic profile is normal however his BUN is 43 creatinine is rising up to 2.83, baseline yesterday was 2.33. Patient is achieving about 1000 mL via incentive spirometry Reevaluated today on 05/15/2023, patient is sitting up at the bedside chair, awake, oriented 3, does not seem to be in any distress. Patient is on 2 L nasal cannula, O2 sats is 94%, remains on dopamine drip at 3 mcg/kg/m, his urine output remains marginal and poor, however the patient's creatinine jumped up significantly over the last 24 hours, I believe the patient may have developed acute tubular necrosis from hypotension, nonetheless clinically the patient is doing better than expected. He was seen by nephrology for his renal failure.pleural and mediastinal chest tubes noted, remain in place, Nelson catheter remains in place. Labs were reviewed today, creatinine is up to 4.03 BUN is 48. Hemoglobin is 9.9. WBC count is 15.3.chest x-ray showed mostly postsurgical changes and bilateral chest tubes without evidence of any pneumothorax. Small right-sided pleural effusion is noted. Patient was reevaluated today on 05/16/2023, doing well from the pulmonary perspective, but doing poorly from the renal perspective. Patient continues to develop worsening renal failure, being followed by nephrology, and I believe the patient may be heading towards hemodialysis. Creatinine is up to 5.9 this morning. Bicarb is low. Patient remains on dopamine at 3 mcg/kg/m with very poor urine output. Chest x-ray is showing postsurgical changes and small right- sided pleural effusion no pneumothorax, no evidence of pneumonia . Bicarb is low, creatinine is high, but sugar is 200, his ventricular epicardial pacemaker wires were removed yesterday. Mediastinal chest tube was removed yesterday, continues to have right IJ Cordis in place, and continues to have CVP monitoring. CVP today is 6. Right-sided and left-sided pleural chest tubes remain in place. Nelson catheter remains in place. Patient had only 120 mL of urine output in the last 8 hours. And about 400 in the last 24 hours. The patient is seen today 05/17/2023 in follow-up in the intensive care unit. He is currently sitting up in bed. Awake and alert in no acute distress. Postoperative day #4. He is maintaining O2 saturations in the 90s on 4 L/m per nasal cannula. He has normal saline at KVO. Dopamine drip at 3 mcg/kg/min. Insulin drip at 11 units per hour. D5W with 3 A of sodium bicarb at 75 ML's per hour. Lasix drip at 20 mg per hour. He is oliguric. He did receive a right femoral temporary hemodialysis catheter placed last evening. Plan is for hemodialysis today. White count 13.0. Hemoglobin 7.7. Platelets 140. Sodium 132. Potassium 4.1. Bicarb 21. BUN 67. Creatinine 7.33. Glucose 226. Arterial blood gases revealed a pO2 of 87, pCO2 35. PH 7.42. Left pleural chest tube remains in place to wall suction. No significant leak noted. Right internal Cordis in place. Right radial art line in place. As x-ray reveals no evidence of pneumothorax. Mild cardiomegaly and a right pleural effusion. Continues to work with the incentive spirometer. Continued on bronchodilators. The patient is seen today 05/18/2023 in follow-up in the intensive care unit. He is currently resting in bed. Awake and alert. Postoperative day #5. He is currently maintaining O2 saturations in the 90s on 7 L high flow nasal cannula. Blood gases revealed a PaO2 of 74, pCO2 34 and a pH of 7.39. He remains on lactated Ringer's at KVO. Insulin drip at 4.5 units per hour. Norepinephrine is currently on hold. Ultrasound of the chest is pending. He is status post 2 units of packed red blood cells this admission. Current hemoglobin 7.7. Platelets 130,000. White count 9.0. Sodium 135. Potassium 3.5. Bicarb 20. BUN 50. Creatinine 6.50. Glucose 98. AST to 55. ALT 19. Hepatitis B screen negative. He did not tolerate hemodialysis yesterday. To be attempted again today. Echocardiogram revealed moderately impaired left ventricular systolic function and small pericardial effusion. Computed tomography scan of the brain revealed no acute intracranial process. Current CVP of 10 mmHg. He did have a T-max of 101.3 early this morning. Currently afebrile. Urine culture revealed no growth. Sputum culture pending. Currently on vancomycin. The patient is seen today 05/19/2023 in follow-up in the intensive care unit. He is currently sitting up in bed. Awake, alert, confused, slow to respond. Weak. EEG reveals background slowing of mild to moderate degree suggestive of encephalopathy. Continues to maintain good O2 saturations in the 90s on 3 L/m per nasal cannula. Ultrasound of the chest revealed no significant fluid for thoracentesis. He is receiving hemodialysis today. Yesterday they removed 500 ML's and hoping for thousand today. He is on norepinephrine at 0.02 mcg/kg/m. 0.9 normal saline at 20 ML's per hour. Insulin drip currently on hold. He is on antibiotics in the form of vancomycin and cefepime. He remains on bronchodilators. Working with the incentive spirometer. Continued on oral amiodarone. Anticoagulated with Eliquis. He is status post 2 units of packed red blood cells this admission. Current hemoglobin 7.7. Platelets 147. White count 8.4. Sodium 134. Potassium 3.9. Bicarb 34. BUN 36. Creatinine 5.26. Glucose 155. AST 257. ALT 43. The patient is seen today 05/20/2023 in follow-up in the intensive care unit. He is currently up in a chair at the bedside. Awake and alert in no acute distress. He remains afebrile. He is down to 2 L nasal cannula and maintaining O2 saturations in the 90s. Currently in sinus rhythm. Chest x-ray showing some atelectasis of the right lower lobe. Encouraged increased use the incentive spirometer. Left pleural chest tube remains in place. He did receive hemodialysis yesterday with 2 L of fluid removed. His norepinephrine has been off since 6:30 this morning. He is continued on vancomycin and cefepime. Cultures are revealing no growth. He is status post 2 units of packed red blood cells this admission. Current hemoglobin 8.7. Platelets 151. White count 9.2. Sodium 134. Potassium 3.8. Bicarb 26. BUN 40. Creatinine 4.55. Glucose 203. AST 207. ALT 28. Cortisol 28. He remains on DuoNeb inhalations. The patient is seen today 05/21/2020 in the intensive care unit. Distress. Plan is for hemodialysis with a goal of 3 L to be removed today. He is also to have a permacath placed. He'll be on a Wednesday schedule for his dialysis treatments. Chest x-ray shows improving aeration of the right lower lobe. Left pleural chest tube has been removed. No evidence of pneumothorax. He is remaining in sinus rhythm. He is maintaining O2 saturations in the 90s on 2 L/m per nasal cannula. He's been afebrile. Hemodynamically stable. He is status post 2 units of packed red blood cells this admission. Current hemoglobin 8.8. Platelets 175. White count 9.2. Sodium 133. Potassium 3.7. Bicarb 26. BUN 61. Creatinine 5.94. Glucose 116. Urine, blood, sputum cultures all revealed no growth. He remains on bronchodilators. Continues to work with the incentive spirometer. The patient is seen today 05/22/2023 in follow-up in the intensive care unit. Currently sitting up in a chair at the bedside. Awake and alert in no acute distress. Maintaining good O2 saturations in the 90s on room air. No IV fluids. He did receive hemodialysis yesterday with 2.8 L of fluid removed. He did have a right internal jugular hemodialysis catheter placed yesterday. Right femoral catheter was removed. Chest x-ray reveals small right pleural effusion with associated atelectasis. He is continuing to work with his incentive spir ometer. Urine, blood and sputum cultures all revealed no growth. He remains on DuoNeb inhalations. Anticoagulated with Eliquis. Objective - Vital Signs Vital signs: Vital Signs Temp 98.2 F 05/22/23 08:00 Pulse 63 05/22/23 09:00 Resp 21 05/22/23 09:00 BP 134/65 05/22/23 09:00 Pulse Ox 94 L 05/22/23 09:00 FiO2 50 05/13/23 15:13 Intake & Output 05/21/23 05/22/23 05/22/23 18:59 06:59 18:59 Intake Total 500 150 100 Output Total 3300 30 5 Balance -2800 120 95 Weight 112.2 kg Intake: Oral 150 100 Hemodialysis 500 Output: Urine 0 30 5 Hemodialysis 3300 Other: Voiding Method Indwelling Catheter Indwelling Catheter Indwelling Catheter # Bowel Movements 1 ABP, PAP, CO, CI - Last Documented Arterial Blood Pressure 116/42 Pulmonary Artery Pressure 29/9 Cardiac Output 4.5 Cardiac Index 2.2 - Exam GENERAL EXAM: Alert, pleasant 68-year-old male, on room air, up in a chair, comfortable, in no apparent distress. HEAD: Normocephalic. EYES: Normal reaction of pupils, equal size. NOSE: Clear with pink turbinates. THROAT: No erythema or exudates. NECK: Right IJ dialysis catheter in place. No masses, no JVD. CHEST: Sternal dressing dry and intact. Heart hugger in place. LUNGS: Equal air entry with crackles in the right lung base. CVS: S1 and S2 normal with no audible murmur, regular rhythm. ABDOMEN: No hepatosplenomegaly, normal bowel sounds, no guarding or rigidity. SPINE: No scoliosis or deformity SKIN: No rashes CENTRAL NERVOUS SYSTEM: No focal deficits, tone is normal in all 4 extremities. EXTREMITIES: Right femoral hemodialysis catheter removed. SCDs in place. Yudith pheral pulses are intact. - Labs CBC & Chem 7: 05/22/23 05:33 05/22/23 05:33 Labs: Abnormal Lab Results - Last 24 Hours (Table) 05/21/23 05/21/23 05/21/23 Range/Units 12:25 17:59 19:47 RBC (4.30-5.90) m/uL Hgb (13.0-17.5) gm/dL Hct (39.0-53.0) % Sodium (137-145) mmol/L Chloride (98-107) mmol/L BUN (9-20) mg/dL Creatinine (0.66-1.25) mg/dL Glucose (74-99) mg/dL POC Glucose (mg/dL) 117 H 180 H 240 H (70-110) mg/dL Calcium (8.4-10.2) mg/dL 05/22/23 05/22/23 05/22/23 Range/Units 05:33 05:33 06:12 RBC 2.90 L (4.30-5.90) m/uL Hgb 9.4 L (13.0-17.5) gm/dL Hct 27.5 L (39.0-53.0) % Sodium 133 L (137-145) mmol/L Chloride 97 L (98-107) mmol/L BUN 49 H (9-20) mg/dL Creatinine 5.19 H (0.66-1.25) mg/dL Glucose 167 H (74-99) mg/dL POC Glucose (mg/dL) 173 H (70-110) mg/dL Calcium 7.1 L (8.4-10.2) mg/dL Microbiology - Last 24 Hours (Table) 05/18/23 08:30 Blood Culture - Preliminary Blood 05/18/23 08:30 Blood Culture - Preliminary Blood Assessment and Plan Assessment: Coronary artery disease status post off-pump coronary artery bypass grafting 2 with a left internal thoracic artery to the left anterior descending artery, saphenous vein graft from the aorta to the posterior descending artery. Left atrial appendage ligation. Postoperative day #9. Acute kidney injury requiring hemodialysis. Initiated on a [id number] schedule. -2.8 L removed yesterday 05/21/2023 History of chronic kidney disease, stage IV Febrile illness, cultures revealing no growth, completed vancomycin and cefepime Ischemic cardiomyopathy with ejection fraction 40-45% History of pulmonary embolism previously on Eliquis Diabetes mellitus Hypertension CVA BPH Hyperlipidemia Previous COVID-19 infection Plan: The patient was seen and evaluated Chest x-ray, labs and medications reviewed Stable and on room air Continue bronchodilators Encourage the increased use of the incentive spirometer Increase his activity as tolerated To transfer to 3 S. today We will continue to follow I have personally seen and examined the patient, performed the documentation and the assessment and plan as written. Number of minutes spent on the visit: 10.
[2023-05-22 11:46] LABS: Glucose,Whole Blood 227 mg/dL (70-110)
--- NOTE | 2023-05-22 14:19 | PN ---
PROGRESS NOTE DATE OF SERVICE: 05/22/2023 SUBJECTIVE: This is a 68-year-old gentleman who was admitted with CAD, CABG, also had diabetes mellitus well controlled. Chest x-ray showed some improvement. The patient is on hemodialysis. OBJECTIVE: GENERAL: Pulse is 60, blood pressure n, respirations 16. CHEST: A few scattered rhonchi. ABDOMEN: Soft, obese. NERVOUS SYSTEM: Nonfocal. LABORATORY DATA: Not reviewed. ASSESSMENT: 1. Coronary artery disease, status post coronary artery bypass grafting. 2. Acute on chronic kidney disease, newly started on hemodialysis. 3. Right pleural effusion, improving. 4. Diabetes mellitus, type 2. 5. History of ischemic cardiomyopathy, ejection fraction of 40% to 45%. 6. Hypertension. 7. Multiple medical issues. RECOMMENDATIONS: Recommend to continue current management and symptomatic treatment. Continue to monitor the blood sugars and repeat labs. Closely follow with multiple consultants. Further recommendations to follow. MMODL / IJN: [id number] / MTDD
--- NOTE | 2023-05-22 16:27 | P.PN ---
Subjective Progress Note Date: 05/22/23 Follow-up for acute kidney injury on dialysis. Objective - Vital Signs Vital signs: Vital Signs Temp 98.2 F 05/22/23 08:00 Pulse 60 05/22/23 12:04 Resp 16 05/22/23 12:00 BP 111/58 05/22/23 12:00 Pulse Ox 93 L 05/22/23 12:00 FiO2 50 05/13/23 15:13 Intake & Output 05/21/23 05/22/23 05/22/23 18:59 06:59 18:59 Intake Total 500 150 460 Output Total 3300 30 5 Balance -2800 120 455 Weight 112.2 kg Intake: Oral 150 460 Hemodialysis 500 Output: Urine 0 30 5 Hemodialysis 3300 Other: Voiding Method Indwelling Catheter Indwelling Catheter Indwelling Catheter # Bowel Movements 1 ABP, PAP, CO, CI - Last Documented Arterial Blood Pressure 116/42 Pulmonary Artery Pressure 29/9 Cardiac Output 4.5 Cardiac Index 2.2 - Exam No acute distress S1-S2 heard Lungs clear Edema - Labs CBC & Chem 7: 05/22/23 05:33 05/22/23 05:33 Labs: Abnormal Lab Results - Last 24 Hours (Table) 05/21/23 05/21/23 05/22/23 Range/Units 17:59 19:47 05:33 RBC 2.90 L (4.30-5.90) m/uL Hgb 9.4 L (13.0-17.5) gm/dL Hct 27.5 L (39.0-53.0) % Sodium (137-145) mmol/L Chloride (98-107) mmol/L BUN (9-20) mg/dL Creatinine (0.66-1.25) mg/dL Glucose (74-99) mg/dL POC Glucose (mg/dL) 180 H 240 H (70-110) mg/dL Calcium (8.4-10.2) mg/dL 05/22/23 05/22/23 05/22/23 Range/Units 05:33 06:12 11:43 RBC (4.30-5.90) m/uL Hgb (13.0-17.5) gm/dL Hct (39.0-53.0) % Sodium 133 L (137-145) mmol/L Chloride 97 L (98-107) mmol/L BUN 49 H (9-20) mg/dL Creatinine 5.19 H (0.66-1.25) mg/dL Glucose 167 H (74-99) mg/dL POC Glucose (mg/dL) 173 H 227 H (70-110) mg/dL Calcium 7.1 L (8.4-10.2) mg/dL Microbiology - Last 24 Hours (Table) 05/18/23 08:30 Blood Culture - Preliminary Blood 05/18/23 08:30 Blood Culture - Preliminary Blood Assessment and Plan Assessment: #1 acute kidney injury secondary to hemodynamic ATN. Hemodialysis started on 05/17/2023. #2 chronic kidney disease stage IV with a baseline creatinine of 2.2 MG per DL. #3 cardiomyopathy with EF of 40-45% #4 coronary artery disease status post CABG this admission #5 diabetes mellitus #6 A. fib with RVR #7 volume overload Plan: #1 currently undergoing dialysis tolerating well. Next treatment on Wednesday.
[2023-05-22 16:49] LABS: Glucose,Whole Blood 286 mg/dL (70-110)
[2023-05-22 20:47] LABS: Glucose,Whole Blood 216 mg/dL (70-110)
[2023-05-23 06:27] LABS: Glucose,Whole Blood 142 mg/dL (70-110)
--- NOTE | 2023-05-23 06:49 | XR ---
EXAMINATION TYPE: XR chest 2V DATE OF EXAM: 05/23/2023 6:19 AM COMPARISON: Chest radiographs from 05/22/2023 TECHNIQUE: XR chest 2V Frontal and lateral views of the chest. CLINICAL INDICATION:Male, 68 years old with history of post cardiac surgery; FINDINGS Lungs/Pleura: Similar right pleural effusion. There is no evidence of left pleural effusion, focal co nsolidation, or pneumothorax. Pulmonary vascularity: Unremarkable. Heart/mediastinum: Cardiomediastinal silhouette is enlarged and stable. Left atrial appendage occlusi on device is present. Musculoskeletal: No acute osseous pathology. Midline sternotomy wires are noted. Other findings: None Lines/Tubes: Right internal jugular central venous catheter with distal tip at the cavoatrial junction. IMPRESSION: Cardiomegaly with similar right pleural effusion on today's exam.
[2023-05-23] MEDS: INSULIN ASPART (NovoLOG) 100 UNIT/ML VIAL SQ SCH ×7 (06:56→20:28)
[2023-05-23] MEDS: MIDODRINE 5 MG TAB PO SCH ×3 (06:59→17:03)
[2023-05-23] MEDS: PANTOPRAZOLE 40 MG TABLET PO SCH (07:03)
[2023-05-23 07:13] LABS: Basophils # (A) 0.1 k/uL (0-0.2); Basophils % (A) 1 %; Eosinophils # (A) 0.7 k/uL (0-0.7); Eosinophils % (A) 5 %; HCT 29.2 % (39.0-53.0); Lymphocytes # (A) 2.2 k/uL (1.0-4.8); Lymphocytes % (A) 16 %; MCHC 34.3 g/dL (31.0-37.0); MCV 93.5 fL (80.0-100.0); Mean Platelet Volume 7.9; Monocytes # (A) 0.6 k/uL (0-1.0); Monocytes % (A) 5 %; Neutrophils # (A) 9.9 k/uL (1.3-7.7); Neutrophils % (A) 72 %; Platelet Count 241 k/uL (150-450); RBC 3.12 m/uL (4.30-5.90); RDW 14.4 % (11.5-15.5); WBC 13.7 k/uL (3.8-10.6)
[2023-05-23 07:31] LABS: African American GFR (CKD) 9 (>60 ml/min/1.73 sqM); Anion Gap 13 mmol/L; Blood Urea Nitrogen 74 mg/dL (9-20); Calcium 7.5 mg/dL (8.4-10.2); Carbon Dioxide 23 mmol/L (22-30); Chloride 97 mmol/L (98-107); Glucose 149 mg/dL (74-99); Non-African American GFR(CKD) 7 (>60 ml/min/1.73 sqM); Sodium 133 mmol/L (137-145)
--- NOTE | 2023-05-23 07:44 | P.PN ---
Subjective Progress Note Date: 05/23/23 Principal diagnosis: Two-vessel coronary artery disease. Previous medical history of nonischemic cardiomyopathy with EF 25-30% with improvement EF of 45-50% with intense medical therapy, chronic LV thrombus, pulmonary embolus on eliquis outpatient, hypertension, hyperlipidemia, diabetes mellitus, CVA with residual right-sided weakness, COVID-19 infection in early 2021, chronic kidney disease stage IV with baseline creatinine of 2.0, and BPH status post TURP POD #10 Off pump coronary artery bypass grafting x 2. Left internal thoracic artery (in-situ) to left anterior descending artery, saphenous vein from aorta to posterior descending artery, endoscopic right greater saphenous vein harvest, left atrial appendage ligation using 35mm AtriClip, graft flow measurements usi ng the Medication Review-Stim flow meter system, and intraoperative transesophageal echocardiogram performed by anesthesia. Postoperative acute blood loss anemia and thrombocytopenia, expected given hemodilution Intra and postoperative hypotension, unexpected, vasoplegia Acute kidney injury, likely secondary to hypoperfusion, status post temporary hemodialysis catheter, status post permacath with removal of right groin hemodialysis catheter Paroxysmal atrial fibrillation, known common occurrence after cardiac surgery, currently in normal sinus rhythm Mental status change, unsure of eitiology, likely metabolic encephalopathy vs new stroke, resolved The patient was seen and examined sitting up in a recliner on the cardiac stepdown unit in no acute distress. He denies any pain or shortness of breath currently. Currently sinus rhythm, blood pressure stable, hasn't needed oral midodrine since noon yesterday. Remains on room air and able to achieve 1250 mL on incentive spirometry. Hemodialysis was completed Wednesday with removal of 2.8 L, next hemodialysis planned for Wednesday. Patient has had urine output, 410 mL overnight. Patient's mentation has improved, oriented to person, place, year, s ituation. Strength equal bilaterally, patient has ambulated short distance in the hallway with assistance. Chest x-ray, labs reviewed. Daughter at bedside, updated as staff is reporting that she was unhappy that patient's suarez was removed and that he had been up too long in the chair yesterday. Discussed infection risk of suarez, discussed patient should be up in chair and ambulating as much as possible during the day, bed is for sleeping at night only. Patient reportedly refused shower yesterday/this morning, educated on need for daily shower. Updated and out-of-town daughter yesterday. Objective - Vital Signs Vital signs: Vital Signs Temp 98.2 F 05/22/23 08:00 Pulse 62 05/23/23 04:00 Resp 18 05/23/23 04:00 BP 131/77 05/23/23 04:00 Pulse Ox 92 L 05/23/23 04:00 FiO2 50 05/13/23 15:13 Intake & Output 05/22/23 05/23/23 05/23/23 18:59 06:59 18:59 Intake Total 460 Output Total 5 330 Balance 455 -330 Intake: Oral 460 Output: Urine 5 300 Stool 30 Other: Voiding Method Indwelling Catheter Indwelling Catheter ABP, PAP, CO, CI - Last Documented Arterial Blood Pressure 116/42 Pulmonary Artery Pressure 29/9 Cardiac Output 4.5 Cardiac Index 2.2 - Exam CONSTITUTIONAL: Appears comfortable, cooperative, no acute distress RESPIRATORY: Lungs sounds diminished bilaterally, right greater than left. Respirations even, nonlabored. Currently on room air with oxygen saturation 95%. Able to achieve 1250 mL on incentive spirometry. Strong non-productive cough. CARDIOVASCULAR: S1, S2 present. Regular rate and rhythm, sinus rhythm on telemetry. Sternum stable. Palpable peripheral pulses bilaterally. Generalized edema present. No calf pain or tenderness noted. Heart hugger, antiembolism stockings, SCDs present. GASTROINTESTINAL: Abdomen soft, nontender, nondistended, obese. Active bowel sounds present 4 quadrants. Tolerating diet. Positive bowel movement 05/21 GENITOURINARY: Suarez discontinued this morning. Output 410 mL overnight INTEGUMENTARY: Skin is warm and dry. Anterior chest incision well approximated, dressing removed. Right lower extremity EVH site well approximated without redness or drainage. NEUROLOGIC: Cranial nerves II through XII intact MUSKULOSKELETAL: Able to move all extremities, strength equal bilaterally PSYCHIATRIC: Alert and oriented to person, place, year and situation INVASIVE LINES AND TUBES: Right chest PermCath present - Allied health notes Allied health notes reviewed: nursing - Labs CBC & Chem 7: 05/23/23 06:39 05/23/23 06:39 Labs: Abnormal Lab Results - Last 24 Hours (Table) 05/22/23 05/22/23 05/22/23 Range/Units 11:43 16:43 20:46 WBC (3.8-10.6) k/uL RBC (4.30-5.90) m/uL Hgb (13.0-17.5) gm/dL Hct (39.0-53.0) % Neutrophils # (1.3-7.7) k/uL Sodium (137-145) mmol/L Chloride (98-107) mmol/L BUN (9-20) mg/dL Creatinine (0.66-1.25) mg/dL Glucose (74-99) mg/dL POC Glucose (mg/dL) 227 H 286 H 216 H (70-110) mg/dL Calcium (8.4-10.2) mg/dL 05/23/23 05/23/23 05/23/23 Range/Units 06:26 06:39 06:39 WBC 13.7 H (3.8-10.6) k/uL RBC 3.12 L (4.30-5.90) m/uL Hgb 10.0 L (13.0-17.5) gm/dL Hct 29.2 L (39.0-53.0) % Neutrophils # 9.9 H (1.3-7.7) k/uL Sodium 133 L (137-145) mmol/L Chloride 97 L (98-107) mmol/L BUN 74 H (9-20) mg/dL Creatinine 6.89 H (0.66-1.25) mg/dL Glucose 149 H (74-99) mg/dL POC Glucose (mg/dL) 142 H (70-110) mg/dL Calcium 7.5 L (8.4-10.2) mg/dL - Imaging and Cardiology Chest x-ray: report reviewed, image reviewed Assessment and Plan Assessment: Two-vessel coronary artery disease, status post off-pump 2 vessel CABG History of nonischemic cardiomyopathy with EF 25-30% with improvement EF of 45- 50% with intense medical therapy, on Entresto outpatient Chronic LV thrombus Pulmonary embolus on eliquis outpatient History of hypertension Hyperlipidemia, treated, cholesterol 108, LDL 44 Diabetes mellitus, hemoglobin A1c 7.4% CVA with residual right-sided weakness COVID-19 infection in early 2021 Chronic kidney disease stage IV with baseline creatinine of 2.0 BPH status post TURP Postoperative acute blood loss anemia and thrombocytopenia, expected Intra and postoperative hypotension, unexpected, vasoplegia Acute kidney injury, likely secondary to hypoperfusion, status post temporary hemodialysis catheter, status post permacath placement, starting to make urine Paroxysmal atrial fibrillation, status post ligation of left atrial appendage, currently in sinus rhythm Mental status change, unsure of eitiology, likely metabolic encephalopathy vs new stroke, resolved Medical debility Plan: Continue to maximize medical therapy with low dose aspirin, statin, beta keara therapy Continue amiodarone for afib prophylaxis, continue Eliquis Encourage incentive spirometry use 10 times every hour while awake. Bronchodilators per pulmonology. Continue Midodrine 10 mg by mouth 3 times a day to help with blood pressure support. Hold for systolic blood pressure greater than 120 mmHg, will consider decreasing today as patient has not needed last 2 doses. Will monitor daily labs and chest x-rays. Electrolyte replacement per nephrology. Avoid nephrotoxic agents GI/DVT prophylaxis. Increase activity as tolerated. PT/OT/cardiac rehab following Pain control with current medication regimen. No Toradol due to kidney disease. Insulin management per internal medicine service, patient's preoperative hemoglobin A1c was 7.4%, needs tight blood sugar control as blood sugars still running over 200 at times. No metformin due to ANURADHA Strict accurate intake and output Daily weights Dialysis per nephrology Patient to shower today, and daily thereafter Will consult inpatient rehab physician Wednesday for possibility of discharge to [facility] Will continue to update family daily More recommendations to follow
[2023-05-23] MEDS: IPRATROPIUM-ALBUTEROL 3 ML NEB INHALATION SCH ×4 (09:19→21:22)
[2023-05-23] MEDS: APIXABAN 2.5 MG TABLET PO SCH ×2 (09:38→19:57)
[2023-05-23] MEDS: FOLIC ACID 1 MG TAB PO SCH (09:38)
[2023-05-23] MEDS: METOPROLOL TARTRATE 12.5 MG TAB PO SCH ×2 (09:38→19:57)
[2023-05-23] MEDS: ASPIRIN 81 MG PO SCH (09:38)
[2023-05-23] MEDS: AMIODARONE 200 MG TAB PO SCH ×2 (09:38→19:57)
[2023-05-23] MEDS: SODIUM BICARBONATE TAB 650 MG TAB PO SCH ×2 (09:38→19:57)
[2023-05-23] MEDS: INSULIN DETEMIR (LEVEMIR) 100 UNIT/ML SYR SQ SCH ×2 (09:39→20:28)
--- NOTE | 2023-05-23 11:39 | P.PN ---
Subjective Progress Note Date: 05/23/23 Principal diagnosis: Open heart surgery. The patient is seen today 05/19/2023 in follow-up in the intensive care unit. He is currently sitting up in bed. Awake, alert, confused, slow to respond. Weak. EEG reveals background slowing of mild to moderate degree suggestive of encephalopathy. Continues to maintain good O2 saturations in the 90s on 3 L/m per nasal cannula. Ultrasound of the chest revealed no significant fluid for thoracentesis. He is receiving hemodialysis today. Yesterday they removed 500 ML's and hoping for thousand today. He is on norepinephrine at 0.02 mcg/kg/m. 0.9 normal saline at 20 ML's per hour. Insulin drip currently on hold. He is on antibiotics in the form of vancomycin and cefepime. He remains on bronchodilators. Working with the incentive spirometer. Continued on oral amiodarone. Anticoagulated with Eliquis. He is status post 2 units of packed red blood cells this admission. Current hemoglobin 7.7. Platelets 147. White count 8.4. Sodium 134. Potassium 3.9. Bicarb 34. BUN 36. Creatinine 5.26. Glucose 155. AST 257. ALT 43. The patient is seen today 05/20/2023 in follow-up in the intensive care unit. He is currently up in a chair at the bedside. Awake and alert in no acute distress. He remains afebrile. He is down to 2 L nasal cannula and maintaining O2 saturations in the 90s. Currently in sinus rhythm. Chest x-ray showing some atelectasis of the right lower lobe. Encouraged increased use the incentive spirometer. Left pleural chest tube remains in place. He did receive hemodialysis yesterday with 2 L of fluid removed. His norepinephrine has been off since 6:30 this morning. He is continued on vancomycin and cefepime. Cultures are revealing no growth. He is status post 2 units of packed red blood cells this admission. Current hemoglobin 8.7. Platelets 151. White count 9.2. Sodium 134. Potassium 3.8. Bicarb 26. BUN 40. Creatinine 4.55. Glucose 203. AST 207. ALT 28. Cortisol 28. He remains on DuoNeb inhalations. The patient is seen today 05/21/2020 in the intensive care unit. Distress. Plan is for hemodialysis with a goal of 3 L to be removed today. He is also to have a permacath placed. He'll be on a Wednesday schedule for his dialysis treatments. Chest x-ray shows improving aeration of the right lower lobe. Left pleural chest tube has been removed. No evidence of pneumothorax. He is remaining in sinus rhythm. He is maintaining O2 saturations in the 90s on 2 L/m per nasal cannula. He's been afebrile. Hemodynamically stable. He is status post 2 units of packed red blood cells this admission. Current hemoglobin 8.8. Platelets 175. White count 9.2. Sodium 133. Potassium 3.7. Bicarb 26. BUN 61. Creatinine 5.94. Glucose 116. Urine, blood, sputum cultures all revealed no growth. He remains on bronchodilators. Continues to w ork with the incentive spirometer. The patient is seen today 05/22/2023 in follow-up in the intensive care unit. Currently sitting up in a chair at the bedside. Awake and alert in no acute distress. Maintaining good O2 saturations in the 90s on room air. No IV fluids. He did receive hemodialysis yesterday with 2.8 L of fluid removed. He did have a right internal jugular hemodialysis catheter placed yesterday. Right femoral catheter was removed. Chest x-ray reveals small right pleural effusion with associated atelectasis. He is continuing to work with his incentive spirometer. Urine, blood and sputum cultures all revealed no growth. He remains on DuoNeb inhalations. Anticoagulated with Eliquis. Progress note dated 05/23/2023. The patient is seen today in room 383. He was transferred out of the intensive care unit yesterday. The patient's on room air. He's not receiving any IV fluids. The plan is for Wednesday/Wednesday/Wednesday hemodialysis. The patient did not have dialysis yesterday today. He's feeling a bit stronger day by day. Still has a long way to go. White count 13.7, hemoglobin 10, hematocrit 29.2, and platelet count is normal. Sodium 133, potassium 4, chlorides 97, CO2 23, BUN 74, creatinine 6.89. Chest x-ray shows an small right pleural effusion. Objective - Vital Signs Vital signs: Vital Signs Temp 97.9 F 05/23/23 09:37 Pulse 64 05/23/23 09:37 Resp 16 05/23/23 09:37 BP 117/64 05/23/23 09:37 Pulse Ox 98 05/23/23 09:37 FiO2 50 05/13/23 15:13 Intake & Output 05/22/23 05/23/23 05/23/23 18:59 06:59 18:59 Intake Total 460 Output Total 5 330 110 Balance 455 -330 -110 Intake: Oral 460 Output: Urine 5 300 110 Stool 30 Other: Voiding Method Indwelling Catheter Indwelling Catheter Urinal ABP, PAP, CO, CI - Last Documented Arterial Blood Pressure 116/42 Pulmonary Artery Pressure 29/9 Cardiac Output 4.5 Cardiac Index 2.2 - Exam No acute distress, oriented 3. Currently on room air. HEENT examination is grossly unremarkable. Mucous membranes are moist. No oral lesions. Neck supple. Full range of motion. No adenopathy thyromegaly or neck vein distention. Cardiovascular examination reveals regular rhythm rate. S1-S2 normal. No S3 or S4. No discernible murmur noted. Heart rate 64 bpm. Lungs reveal clear breath sounds. Breath sounds are equal bilaterally. No adventitious lung sounds including wheezes rhonchi or crackles. Room air saturation is 98%. Abdomen soft bowel sounds are heard. No masses or tenderness. Extremities are intact. No cyanosis clubbing or edema. Skin is without rash or lesion. Neurologic examination is brief but nonfocal. - Labs CBC & Chem 7: 05/23/23 06:39 05/23/23 06:39 Labs: Abnormal Lab Results - Last 24 Hours (Table) 05/22/23 05/22/23 05/22/23 Range/Units 11:43 16:43 20:46 WBC (3.8-10.6) k/uL RBC (4.30-5.90) m/uL Hgb (13.0-17.5) gm/dL Hct (39.0-53.0) % Neutrophils # (1.3-7.7) k/uL Sodium (137-145) mmol/L Chloride (98-107) mmol/L BUN (9-20) mg/dL Creatinine (0.66-1.25) mg/dL Glucose (74-99) mg/dL POC Glucose (mg/dL) 227 H 286 H 216 H (70-110) mg/dL Calcium (8.4-10.2) mg/dL 05/23/23 05/23/23 05/23/23 Range/Units 06:26 06:39 06:39 WBC 13.7 H (3.8-10.6) k/uL RBC 3.12 L (4.30-5.90) m/uL Hgb 10.0 L (13.0-17.5) gm/dL Hct 29.2 L (39.0-53.0) % Neutrophils # 9.9 H (1.3-7.7) k/uL Sodium 133 L (137-145) mmol/L Chloride 97 L (98-107) mmol/L BUN 74 H (9-20) mg/dL Creatinine 6.89 H (0.66-1.25) mg/dL Glucose 149 H (74-99) mg/dL POC Glucose (mg/dL) 142 H (70-110) mg/dL Calcium 7.5 L (8.4-10.2) mg/dL Assessment and Plan Assessment: Coronary artery disease status post off-pump coronary artery bypass grafting 2 with a left internal thoracic artery to the left anterior descending artery, saphenous vein graft from the aorta to the posterior descending artery. Left atrial appendage ligation. Postoperative day #10. Acute kidney injury requiring hemodialysis. Initiated on a [id number]-[id number] schedule. -2.8 L removed yesterday 05/21/2023. History of chronic kidney disease, stage IV. Febrile illness, cultures revealing no growth, completed vancomycin and cefepime. Ischemic cardiomyopathy with ejection fraction 40-45%. History of pulmonary embolism previously on Eliquis. Diabetes mellitus. Hypertension. CVA. BPH. Hyperlipidemia. Previous COVID-19 infection. Plan: Plan dated 05/23/2023. The patient appears to be getting better each day. He was transferred out of the intensive care unit yesterday. The patient is currently on room air. He's not receiving any IV fluids. Labs, x-rays, and medications are all reviewed. Overall prognosis remains guarded. We'll continue to follow the patient and make recommendations along the way. The patient is postop day #10, S/P off pump bypass grafting, two-vessel. Time with Patient: Less than 30
[2023-05-23 11:45] LABS: Glucose,Whole Blood 237 mg/dL (70-110)
--- NOTE | 2023-05-23 13:31 | PN ---
PROGRESS NOTE DATE OF SERVICE: 05/23/2023 SUBJECTIVE: This is a 68-year-old gentleman who was admitted with CAD, CABG, is being closely monitored. The patient is also having dialysis, also blood sugars are better controlled. The portable chest x-ray done today which was evaluated by me showed some improvement. Some right lower lobe atelectasis noted. OBJECTIVE: VITAL SIGNS: Pulse is 64, blood pressure 117/65, respirations 16. CHEST: Few scattered rhonchi. ABDOMEN: Soft, obese. LEGS: No edema. No swelling. LABORATORY DATA: Reviewed. ASSESSMENT: 1. Coronary artery disease, coronary artery bypass grafting. 2. Acute on chronic kidney disease, newly started on hemodialysis. 3. Right pleural effusion, improving with possible right-sided atelectasis. 4. Diabetes mellitus, type 2. 5. History of ischemic cardiomyopathy, ejection fraction of 40% to 45%. 6. Hypertension. 7. Multiple medical issues. RECOMMENDATIONS: Recommend to continue current medication, current symptomatic treatment. Continue the current insulin regimen and hemodialysis is ongoing. Blood sugars are consistently elevated. I will increase the dose of Lantus, but however, hypoglycemia also to be watched. Further recommendations to follow. MMODL / IJN: [id number] /
--- NOTE | 2023-05-23 14:11 | P.PN ---
Subjective Progress Note Date: 05/23/23 Follow-up for acute kidney injury on dialysis. Urine output still low, edema Objective - Vital Signs Vital signs: Vital Signs Temp 97.9 F 05/23/23 09:37 Pulse 60 05/23/23 11:57 Resp 18 05/23/23 11:57 BP 104/64 05/23/23 11:57 Pulse Ox 95 05/23/23 11:57 FiO2 50 05/13/23 15:13 Intake & Output 05/22/23 05/23/23 05/23/23 18:59 06:59 18:59 Intake Total 460 Output Total 5 330 110 Balance 455 -330 -110 Intake: Oral 460 Output: Urine 5 300 110 Stool 30 Other: Voiding Method Indwelling Catheter Indwelling Catheter Urinal # Bowel Movements 2 ABP, PAP, CO, CI - Last Documented Arterial Blood Pressure 116/42 Pulmonary Artery Pressure 29/9 Cardiac Output 4.5 Cardiac Index 2.2 - Exam No acute distress S1-S2 heard Lungs clear Edema - Labs CBC & Chem 7: 05/23/23 06:39 05/23/23 06:39 Labs: Abnormal Lab Results - Last 24 Hours (Table) 05/22/23 05/22/23 05/23/23 Range/Units 16:43 20:46 06:26 WBC (3.8-10.6) k/uL RBC (4.30-5.90) m/uL Hgb (13.0-17.5) gm/dL Hct (39.0-53.0) % Neutrophils # (1.3-7.7) k/uL Sodium (137-145) mmol/L Chloride (98-107) mmol/L BUN (9-20) mg/dL Creatinine (0.66-1.25) mg/dL Glucose (74-99) mg/dL POC Glucose (mg/dL) 286 H 216 H 142 H (70-110) mg/dL Calcium (8.4-10.2) mg/dL 05/23/23 05/23/23 05/23/23 Range/Units 06:39 06:39 11:39 WBC 13.7 H (3.8-10.6) k/uL RBC 3.12 L (4.30-5.90) m/uL Hgb 10.0 L (13.0-17.5) gm/dL Hct 29.2 L (39.0-53.0) % Neutrophils # 9.9 H (1.3-7.7) k/uL Sodium 133 L (137-145) mmol/L Chloride 97 L (98-107) mmol/L BUN 74 H (9-20) mg/dL Creatinine 6.89 H (0.66-1.25) mg/dL Glucose 149 H (74-99) mg/dL POC Glucose (mg/dL) 237 H (70-110) mg/dL Calcium 7.5 L (8.4-10.2) mg/dL Assessment and Plan Assessment: #1 acute kidney injury secondary to hemodynamic ATN. Hemodialysis started on 05/17/2023. #2 chronic kidney disease stage IV with a baseline creatinine of 2.2 MG per DL. #3 cardiomyopathy with EF of 40-45% #4 coronary artery disease status post CABG this admission #5 diabetes mellitus #6 A. fib with RVR #7 volume overload Plan: #1 currently undergoing dialysis tolerating well. Next treatment on Wednesday. #2 add Lasix 40 mg IV twice a day.
[2023-05-23] MEDS: FUROSEMIDE 10 MG/ML 4 ML VIAL IV SCH (15:22)
[2023-05-23 16:59] LABS: Glucose,Whole Blood 197 mg/dL (70-110)
[2023-05-23 20:15] LABS: Glucose,Whole Blood 220 mg/dL (70-110)
[2023-05-24] MEDS: LACTATED RINGERS 1,000 ML IV SCH (03:01)
[2023-05-24] MEDS: CEFEPIME 0.5 GM in SODIUM CHLORIDE 0.9% 50 ML IVPB SCH (03:02)
[2023-05-24] MEDS: FUROSEMIDE 10 MG/ML 4 ML VIAL IV SCH ×3 (03:02→10:20)
[2023-05-24 06:13] LABS: Glucose,Whole Blood 137 mg/dL (70-110)
[2023-05-24] MEDS: INSULIN ASPART (NovoLOG) 100 UNIT/ML VIAL SQ SCH ×7 (06:21→20:53)
[2023-05-24] MEDS: PANTOPRAZOLE 40 MG TABLET PO SCH (06:26)
[2023-05-24] MEDS: INSULIN DETEMIR (LEVEMIR) 100 UNIT/ML SYR SQ SCH ×2 (06:26→20:53)
[2023-05-24] MEDS: MIDODRINE 5 MG TAB PO SCH ×4 (06:26→16:21)
--- NOTE | 2023-05-24 07:40 | P.PN ---
Subjective Progress Note Date: 05/24/23 Principal diagnosis: Two-vessel coronary artery disease. Previous medical history of nonischemic cardiomyopathy with EF 25-30% with improvement EF of 45-50% with intense medical therapy, chronic LV thrombus, pulmonary embolus on eliquis outpatient, hypertension, hyperlipidemia, diabetes mellitus, CVA with residual right-sided weakness, COVID-19 infection in early 2021, chronic kidney disease stage IV with baseline creatinine of 2.0, and BPH status post TURP POD #11 Off pump coronary artery bypass grafting x 2. Left internal thoracic artery (in-situ) to left anterior descending artery, saphenous vein from aorta to posterior descending artery, endoscopic right greater saphenous vein harvest, left atrial appendage ligation using 35mm AtriClip, graft flow measurements usi ng the [employer] flow meter system, and intraoperative transesophageal echocardiogram performed by anesthesia. Postoperative acute blood loss anemia and thrombocytopenia, expected given hemodilution Intra and postoperative hypotension, unexpected, vasoplegia Acute kidney injury, likely secondary to hypoperfusion, status post temporary hemodialysis catheter, status post permacath with removal of right groin hemodialysis catheter Paroxysmal atrial fibrillation, known common occurrence after cardiac surgery, currently in normal sinus rhythm Mental status change, unsure of eitiology, likely metabolic encephalopathy vs new stroke, resolved Medical debility The patient was seen and examined sitting up in a recliner on the cardiac stepdown unit in no acute distress. He denies any pain or shortness of breath currently. Currently sinus rhythm, blood pressure stable. Remains on room air and able to achieve 1250 mL on incentive spirometry. Hemodialysis was completed Wednesday with removal of 2.8 L, next hemodialysis planned for today. Patient had urine output, 410 mL overnight Wednesday night, was started on IV lasix BID last night by nephrology. No further urine output yet, bladder scan has revealed 100 mL. Patient's mentation has improved, oriented to person, place, year, situati on. Strength equal bilaterally, patient has ambulated short distances with assistance. Had first post op shower yesterday. Reports he slept well last night. Chest x-ray reviewed, labs pending. Family updated daily. Objective - Vital Signs Vital signs: Vital Signs Temp 97.9 F 05/24/23 04:00 Pulse 62 05/24/23 04:00 Resp 18 05/24/23 04:00 BP 112/55 05/24/23 04:00 Pulse Ox 95 05/24/23 04:00 FiO2 50 05/13/23 15:13 Intake & Output 05/23/23 05/24/23 05/24/23 18:59 06:59 18:59 Output Total 110 0 Balance -110 0 Weight 115.2 kg Output: Urine 110 0 Other: Voiding Method Urinal Urinal # Bowel Movements 2 1 ABP, PAP, CO, CI - Last Documented Arterial Blood Pressure 116/42 Pulmonary Artery Pressure 29/9 Cardiac Output 4.5 Cardiac Index 2.2 - Exam CONSTITUTIONAL: Appears comfortable, cooperative, no acute distress RESPIRATORY: Lungs sounds diminished bilaterally, right greater than left. Respirations even, nonlabored. Currently on room air with oxygen saturation 95%. Able to achieve 1250 mL on incentive spirometry. Strong non-productive cough. CARDIOVASCULAR: S1, S2 present. Regular rate and rhythm, sinus rhythm on telemetry. Sternum stable. Palpable peripheral pulses bilaterally. Generalized edema present. No calf pain or tenderness noted. Heart hugger, antiembolism stockings, SCDs present. GASTROINTESTINAL: Abdomen soft, nontender, nondistended, obese. Active bowel sounds present 4 quadrants. Tolerating diet. Positive bowel movement 05/23 GENITOURINARY: No further urine output, bladder scan 100 mL INTEGUMENTARY: Skin is warm and dry. Anterior chest incision well approximated, dressing removed. Right lower extremity EVH site well approximated without redness or drainage. NEUROLOGIC: Cranial nerves II through XII intact MUSKULOSKELETAL: Able to move all extremities, strength equal bilaterally PSYCHIATRIC: Alert and oriented to person, place, year and situation INVASIVE LINES AND TUBES: Right chest PermCath present - Allied health notes Allied health notes reviewed: nursing - Labs CBC & Chem 7: 05/23/23 06:39 05/23/23 06:39 Labs: Abnormal Lab Results - Last 24 Hours (Table) 05/23/23 05/23/23 05/23/23 Range/Units 06:39 06:39 11:39 WBC 13.7 H (3.8-10.6) k/uL RBC 3.12 L (4.30-5.90) m/uL Hgb 10.0 L (13.0-17.5) gm/dL Hct 29.2 L (39.0-53.0) % Neutrophils # 9.9 H (1.3-7.7) k/uL Sodium 133 L (137-145) mmol/L Chloride 97 L (98-107) mmol/L BUN 74 H (9-20) mg/dL Creatinine 6.89 H (0.66-1.25) mg/dL Glucose 149 H (74-99) mg/dL POC Glucose (mg/dL) 237 H (70-110) mg/dL Calcium 7.5 L (8.4-10.2) mg/dL 05/23/23 05/23/23 05/24/23 Range/Units 16:48 20:14 06:12 WBC (3.8-10.6) k/uL RBC (4.30-5.90) m/uL Hgb (13.0-17.5) gm/dL Hct (39.0-53.0) % Neutrophils # (1.3-7.7) k/uL Sodium (137-145) mmol/L Chloride (98-107) mmol/L BUN (9-20) mg/dL Creatinine (0.66-1.25) mg/dL Glucose (74-99) mg/dL POC Glucose (mg/dL) 197 H 220 H 137 H (70-110) mg/dL Calcium (8.4-10.2) mg/dL Microbiology - Last 24 Hours (Table) 05/18/23 08:30 Blood Culture - Final Blood 05/18/23 08:30 Blood Culture - Final Blood - Imaging and Cardiology Chest x-ray: image reviewed Assessment and Plan Assessment: Two-vessel coronary artery disease, status post off-pump 2 vessel CABG History of nonischemic cardiomyopathy with EF 25-30% with improvement EF of 45- 50% with intense medical therapy, on Entresto outpatient Chronic LV thrombus Pulmonary embolus on eliquis outpatient History of hypertension Hyperlipidemia, treated, cholesterol 108, LDL 44 Diabetes mellitus, hemoglobin A1c 7.4% CVA with residual right-sided weakness COVID-19 infection in early 2021 Chronic kidney disease stage IV with baseline creatinine of 2.0 BPH status post TURP Postoperative acute blood loss anemia and thrombocytopenia, expected Intra and postoperative hypotension, unexpected, vasoplegia Acute kidney injury, likely secondary to hypoperfusion, status post temporary hemodialysis catheter, status post permacath placement, starting to make urine Paroxysmal atrial fibrillation, status post ligation of left atrial appendage, currently in sinus rhythm Mental status change, unsure of eitiology, likely metabolic encephalopathy vs new stroke, resolved Medical debility Plan: Continue to maximize medical therapy with low dose aspirin, statin, beta keara therapy Continue amiodarone for afib prophylaxis, decreased to 200 mg daily today. Continue Eliquis Encourage incentive spirometry use 10 times every hour while awake. Bronchodila tors per pulmonology. Continue Midodrine 10 mg by mouth 3 times a day to help with blood pressure lepe pport. Hold for systolic blood pressure greater than 120 mmHg, will consider decreasing today if BP tolerates after dialysis Will monitor daily labs and chest x-rays. Electrolyte replacement per nep hrology. Avoid nephrotoxic agents GI/DVT prophylaxis. Increase activity as tolerated. PT/OT/cardiac rehab following Pain control with current medication regimen. No Toradol due to kidney disease. Insulin management per internal medicine service, patient's preoperative hemoglobin A1c was 7.4%, needs tight blood sugar control as blood sugars still running over 200 at times. No metformin due to ANURADHA Strict accurate intake and output Daily weights Dialysis per nephrology Patient to shower daily Will consult inpatient rehab physician today for possibility of discharge to [facility] as patient needs high acuity nursing care, daily physician assessments, frequent lab work, and nutritional management Will continue to update family daily More recommendations to follow
--- NOTE | 2023-05-24 07:43 | PN ---
PROGRESS NOTE SUBJECTIVE: This gentleman had a previous bypass surgery. Today, he is having dialysis, going for a Permacath. Hemodynamically stable. He is in a sinus rhythm, not making much urine. He had a recent bypass surgery with acute kidney injury. OBJECTIVE: VITAL SIGNS: Stable. HEART: S1 and S2 heard normally. Short systolic murmur noted. LUNGS: Reveal fairly decent air entry. ABDOMEN: Soft. EXTREMITIES: Lower extremities reveal diminished pulses. CENTRAL NERVOUS SYSTEM: Grossly within normal limits. We will continue to see the patient from a cardiac standpoint as needed. MMODL / IJN: [id number] /
[2023-05-24] MEDS: IPRATROPIUM-ALBUTEROL 3 ML NEB INHALATION SCH ×4 (08:38→20:40)
--- NOTE | 2023-05-24 08:56 | XR ---
EXAMINATION TYPE: XR chest 2V DATE OF EXAM: 05/24/2023 6:18 AM COMPARISON: Chest radiographs from 05/23/2020 TECHNIQUE: XR chest 2V Frontal and lateral views of the chest. CLINICAL INDICATION:Male, 68 years old with history of post cardiac surgery; FINDINGS: Lungs/Pleura: No evidence of focal consolidation or pneumothorax. Blunting of the costophrenic angles is present. Pulmonary vascularity: Unremarkable. Heart/mediastinum: Cardiomediastinal silhouette is unremarkable. Left atrial appendage occlusion ruperto ce is present. Musculoskeletal: No acute osseous pathology. Midline sternotomy wires are noted. Other findings: None Lines/Tubes: Right internal jugular central venous catheter with distal tip at the cavoatrial junction. IMPRESSION: Post surgical change with persistent small bilateral pleural effusions right greater than left.
[2023-05-24] MEDS: METOPROLOL TARTRATE 12.5 MG TAB PO SCH ×2 (09:09→20:53)
[2023-05-24] MEDS: ASPIRIN 81 MG PO SCH (09:09)
[2023-05-24] MEDS: FOLIC ACID 1 MG TAB PO SCH (09:09)
[2023-05-24] MEDS: AMIODARONE 200 MG TAB PO SCH (09:09)
[2023-05-24] MEDS: APIXABAN 2.5 MG TABLET PO SCH ×2 (09:10→20:53)
[2023-05-24] MEDS: SODIUM BICARBONATE TAB 650 MG TAB PO SCH ×2 (09:10→20:53)
--- NOTE | 2023-05-24 10:15 | P.PN ---
Subjective Progress Note Date: 05/24/23 Subjective: Patient reports feeling tired. Slow improvement as compared to yesterday. No acute overnight events LABS: Hemoglobin 9.4, creatinine 5.1 BP 134/65, heart rate 63 05/24 Patient is postop day #11 for coronary artery bypass grafting 2 and seen today on the cardiac stepdown unit. Telemetry is a sinus rhythm. Heart rate is in the 60s, blood pressure 112/55, pulse ox 95% on room air. Patient is followed by nephrology for acute kidney injury on dialysis that started 05/17. Patient states he is feeling a bit better. He continues to have significant weakness, he states he is only able to stand and walk with assistance. He is concerned about his discharge plan. PHYSICAL EXAMINATION Vital signs reviewed. CONSTITUTIONAL: No apparent distress. HEENT: Head is normocephalic. Pupils are equal, round. Sclerae anicteric. Mucous membranes of the mouth are moist. No JVD. No carotid bruit. CHEST EXAMINATION: Lungs are clear to auscultation. No chest wall tenderness is noted on palpation or with deep breathing. HEART EXAMINATION: Regular rate and rhythm. S1, S2 heard. No murmurs, gallops or rub. ABDOMEN: Soft, nontender. Positive bowel sounds. EXTREMITIES: 2+ peripheral pulses, no lower extremity edema and no calf tenderness. NEUROLOGIC EXAMINATION: Patient is awake, alert and oriented x3. ASSESSMENT: 1. CAD with SCUDDING INSPECTOR LAD, SCUDDING INSPECTOR RCA status post ARAUZ to LAD and SVG to PDA 05/13 2. Ischemic cardiomyopathy EF previously 25-30% improved to 45-50% 3. Chronic systolic heart failure 4. Diabetes mellitus type 2 5. Hypertension 6. Chronic kidney disease stage IV 7. Previous history of stroke 8. Previous history of LV thrombus 9. Postoperative episode of atrial fibrillation, paroxysmal PLAN: Continue current medications include aspirin, Eliquis 2.5 mg. Metoprolol 12.5 mg. Continue by mouth amiodarone 200 mg. [place] Entresto and Aldactone due to ANURADHA. Continue supportive care. Nurse practitioner note has been reviewed, I agree with the documented findings and plan of care. Patient was seen and examined. Objective - Vital Signs Vital signs: Vital Signs Temp 97.9 F 05/24/23 04:00 Pulse 62 05/24/23 08:48 Resp 18 05/24/23 04:00 BP 112/55 05/24/23 04:00 Pulse Ox 91 L 05/24/23 08:38 FiO2 50 05/13/23 15:13 Intake & Output 05/23/23 05/24/23 05/24/23 18:59 06:59 18:59 Intake Total 200 Output Total 110 0 Balance -110 0 200 Weight 115.2 kg Intake: Oral 200 Output: Urine 110 0 Other: Voiding Method Urinal Urinal # Bowel Movements 2 1 2 ABP, PAP, CO, CI - Last Documented Arterial Blood Pressure 116/42 Pulmonary Artery Pressure 29/9 Cardiac Output 4.5 Cardiac Index 2.2 - Labs CBC & Chem 7: 05/23/23 06:39 05/23/23 06:39 Labs: Abnormal Lab Results - Last 24 Hours (Table) 05/23/23 05/23/23 05/23/23 Range/Units 11:39 16:48 20:14 POC Glucose (mg/dL) 237 H 197 H 220 H (70-110) mg/dL 05/24/23 Range/Units 06:12 POC Glucose (mg/dL) 137 H (70-110) mg/dL Microbiology - Last 24 Hours (Table) 05/18/23 08:30 Blood Culture - Final Blood 05/18/23 08:30 Blood Culture - Final Blood
[2023-05-24 11:21] LABS: Glucose,Whole Blood 205 mg/dL (70-110)
[2023-05-24 11:50] LABS: HGB 10.2 gm/dL (13.0-17.5); Hypochromasia Slight; MCV 96.8 fL (80.0-100.0); Mean Platelet Volume 8.2; Platelet Count 294 k/uL (150-450); RDW 14.6 % (11.5-15.5); WBC 20.1 k/uL (3.8-10.6)
[2023-05-24 12:06] LABS: African American GFR (CKD) 7 (>60 ml/min/1.73 sqM); Anion Gap 18 mmol/L; Calcium 7.9 mg/dL (8.4-10.2); Carbon Dioxide 20 mmol/L (22-30); Chloride 94 mmol/L (98-107); Glucose 189 mg/dL (74-99); Non-African American GFR(CKD) 6 (>60 ml/min/1.73 sqM); Potassium 4.6 mmol/L (3.5-5.1); Sodium 132 mmol/L (137-145)
--- NOTE | 2023-05-24 12:28 | P.PN ---
Subjective Pleasant 68 years old male with past medical history of Diabetes Mellitus, Hypertension, hyperlipidemia, benign prostatic hypertrophy, pulmonary embolism on blood thinner He was admitted for coronary artery disease affecting mainly to vessels and underwent coronary artery bypass surgery yesterday and he was on mechanical ventilation for a short lived time, eventually he got extubated. Comfortable in bed with no chest pain or dyspnea. Hemodynamically stable. Patient has mild worsening of creatinine 2.8, 1.3 yesterday 05/15/2023 Fascia temo bed comfortably with no complaints. Blood pressure still borderline. We will see improvement on 15. Creatinine up to 4.0. Nephrology was consulted. Patient is status post bolus of 500 mL of normal saline. His urine analysis is abnormal. Urine culture is negative. Bladder scan is negative. We don't a repeat urine culture Patient remains on aspirin Plavix and midodrine by surgery team 05/16/23 pt is awake alert with no dyspnea, no chest pain ,he denies any specific complaints but his renal function keep worsening and today his creatinine went up to 5.4, he was lasix drip at 20 mg per hour, pt is mostly will need hemodialysis per nephrology team pt is on dobutamine with poor urine output. 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 He is status post bypass surgery and today is postoperative day #4. Creatinine is elevated up to 7.3 today. He is getting treatment for hemodialysis started here in the ICU from. His Lasix drip and backup as well He remains on dopamine drip Blood pressure is borderline with systolic blood pressure is stable around 90s to 100. Hemoglobin 7.7, WBC within the reference range today 9000. Glucose was elevated more than 300 despite doubling the dose of Levemir last night to 5 mg twice a day. Therefore he was started on insulin drip This was discussed with patient in the thoracic primary team 05/18/2023 Patient is very lethargic and tired looking today. Open eyes to verbal stimuli and answer questions. He follows commands. Because of his change mentation neurologist has been consulted from a most likely patient will require MRI of the brain and EEG to rule out intracranial lesions or seizure activities. Blood pressure was controlled Labs reviewed Patient remains on insulin drip, dopamine drip and IV vancomycin 05/19/2023 Patient in the ICU, severely weak and lethargic and somewhat drowsy. He's undergoing hemodialysis and creatinine is elevated. Vitals are the same. Hemoglobin 7.7. He is on aspirin 81 mg Plavix and Protonix. I going to stop the insulin drip and start Levemir insulin and go up gradually with insulin sliding scale Resume the care of the patient on 05/24/2023 Patient was seen appropriate 3, is lying in the recliner comfortable, relaxed a pleasant. He denies any specific complaints. No chest pain dyspnea or other new complaint. He is hemodynamically stable. Stable and improving except for leukocytosis to 20,000. Patient currently sugar is controlled around 200 with Levemir 10 units twice a day. Metformin admission was because of persistent infection. B12 1355 which is elevated patient may benefit from rehab upon discharge Objective - Vital Signs Vital signs: Vital Signs Temp 97.6 F 05/24/23 09:06 Pulse 60 05/24/23 12:00 Resp 18 05/24/23 11:41 BP 145/66 05/24/23 11:41 Pulse Ox 95 05/24/23 11:41 FiO2 50 05/13/23 15:13 Intake & Output 05/23/23 05/24/23 05/24/23 18:59 06:59 18:59 Intake Total 200 Output Total 110 0 Balance -110 0 200 Weight 115.2 kg Intake: Oral 200 Output: Urine 110 0 Other: Voiding Method Urinal Urinal # Bowel Movements 2 1 2 ABP, PAP, CO, CI - Last Documented Arterial Blood Pressure 116/42 Pulmonary Artery Pressure 29/9 Cardiac Output 4.5 Cardiac Index 2.2 - Exam GENERAL: The patient is alert and oriented x3, not in any acute distress. Well developed, well nourished. HEENT: Pupils are round and equally reacting to light. EOMI. No scleral icterus. No conjunctival pallor. Normocephalic, atraumatic. No pharyngeal erythema. No thyromegaly. CARDIOVASCULAR: S1 and S2 present. No murmurs, rubs, or gallops. PULMONARY: Chest is clear to auscultation, no wheezing , no crackles. ABDOMEN: Soft, nontender, nondistended, normoactive bowel sounds. No palpable organomegaly. MUSCULOSKELETAL: No joint swelling or deformity. EXTREMITIES: No cyanosis, clubbing, or pedal edema. NEUROLOGICAL: Gross neurological examination did not reveal any focal deficits. SKIN: No rashes. no petechiae. - Labs CBC & Chem 7: 05/24/23 11:06 05/23/23 06:39 Labs: Abnormal Lab Results - Last 24 Hours (Table) 05/23/23 05/23/23 05/24/23 Range/Units 16:48 20:14 06:12 WBC (3.8-10.6) k/uL RBC (4.30-5.90) m/uL Hgb (13.0-17.5) gm/dL Hct (39.0-53.0) % POC Glucose (mg/dL) 197 H 220 H 137 H (70-110) mg/dL 05/24/23 05/24/23 Range/Units 11:06 11:19 WBC 20.1 H (3.8-10.6) k/uL RBC 3.20 L (4.30-5.90) m/uL Hgb 10.2 L (13.0-17.5) gm/dL Hct 31.0 L (39.0-53.0) % POC Glucose (mg/dL) 205 H (70-110) mg/dL Microbiology - Last 24 Hours (Table) 05/18/23 08:30 Blood Culture - Final Blood 05/18/23 08:30 Blood Culture - Final Blood Assessment and Plan Assessment: Coronary artery disease status post CABG surgery on 05/13 Acute kidney injury on chronic kidney disease stage III. Requiring hemodialysis Mental status most likely metabolic encephalopathy, rule out intracranial lesion Cardiomyopathy with ejection fraction 40-45% Diabetes mellitus History of Hypertension, currently pressure is borderline Hyperlipidemia History of pulmonary embolism on Eliquis Leukocytosis, Improving Plan: Continue with Aspirin and Plavix Neurology consult, patient on MRI of the brain and EEG stump insulin drip and start Levemir insulin with insulin sliding scale Continue with amiodarone drip per critical care team. Started on hemodialysis per nephrology team Continue the breathing treatment Start insulin drip and monitor glucose Incentive spirometry Nephrology consult Several consultants on the case significant cardiothoracic surgery primary team, pulmonary team and cardiology team Labs and medication reviewed.. Continue same treatment. Continue with symptomatic treatment. Resume home medication. Monitor lytes and vitals. DVT and GI prophylaxis. Further recommendations depends on the clinical course of the patient DVT prophylaxis: Deferred to surgery team GI Prophylaxis: Ppi thank you for consulting us and we will follow up with the
[2023-05-24 12:29] LABS: Blood Urea Nitrogen 103 mg/dL (9-20)
--- NOTE | 2023-05-24 14:10 | P.PN ---
Subjective Patient is seen for follow-up for acute kidney injury status post coronary artery bypass surgery. Patient has underlying chronic kidney disease NKF stage IV with baseline creatinine around 1.4 to 2 mg/dL Patient was started on hemodialysis on 05/17/2023 for oliguric ATN postop. Urine output remains low. Patient is scheduled for hemodialysis today. Overall he states he is feeling stronger. No significant complaints today. Objective - Vital Signs Vital signs: Vital Signs Temp 97.6 F 05/24/23 09:06 Pulse 60 05/24/23 12:00 Resp 18 05/24/23 11:41 BP 145/66 05/24/23 11:41 Pulse Ox 95 05/24/23 11:41 FiO2 50 05/13/23 15:13 Intake & Output 05/23/23 05/24/23 05/24/23 18:59 06:59 18:59 Intake Total 400 Output Total 110 0 Balance -110 0 400 Weight 115.2 kg Intake: Oral 400 Output: Urine 110 0 Other: Voiding Method Urinal Urinal # Bowel Movements 2 1 2 ABP, PAP, CO, CI - Last Documented Arterial Blood Pressure 116/42 Pulmonary Artery Pressure 29/9 Cardiac Output 4.5 Cardiac Index 2.2 - Exam Awake, comfortable, in no acute distress Examination of the heart S1 and S2 Examination lungs bilateral breath sounds are heard, decreased breath sounds at the bases Examination lower extremity shows 2+ edema in bilateral lower extremities and upper extremities 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 - Labs CBC & Chem 7: 05/24/23 11:06 05/24/23 11:06 Labs: Abnormal Lab Results - Last 24 Hours (Table) 05/23/23 05/23/23 05/24/23 Range/Units 16:48 20:14 06:12 WBC (3.8-10.6) k/uL RBC (4.30-5.90) m/uL Hgb (13.0-17.5) gm/dL Hct (39.0-53.0) % Sodium (137-145) mmol/L Chloride (98-107) mmol/L Carbon Dioxide (22-30) mmol/L BUN (9-20) mg/dL Creatinine (0.66-1.25) mg/dL Glucose (74-99) mg/dL POC Glucose (mg/dL) 197 H 220 H 137 H (70-110) mg/dL Calcium (8.4-10.2) mg/dL 05/24/23 05/24/23 05/24/23 Range/Units 11:06 11:06 11:19 WBC 20.1 H (3.8-10.6) k/uL RBC 3.20 L (4.30-5.90) m/uL Hgb 10.2 L (13.0-17.5) gm/dL Hct 31.0 L (39.0-53.0) % Sodium 132 L (137-145) mmol/L Chloride 94 L (98-107) mmol/L Carbon Dioxide 20 L (22-30) mmol/L BUN 103 H* (9-20) mg/dL Creatinine 8.07 H* (0.66-1.25) mg/dL Glucose 189 H (74-99) mg/dL POC Glucose (mg/dL) 205 H (70-110) mg/dL Calcium 7.9 L (8.4-10.2) mg/dL Microbiology - Last 24 Hours (Table) 05/18/23 08:30 Blood Culture - Final Blood 05/18/23 08:30 Blood Culture - Final Blood Assessment and Plan Assessment: 1. Acute kidney injury, oliguric ATN postoperatively. Started on hemodialysis on 05/17/2023. Patient remains oliguric and is currently maintained on a Wednesday witnessed a Wednesday schedule. 2. Status post coronary artery bypass surgery on 05/13/2023 3. Coronary artery disease with ejection fraction 40-45%. 4. History of PE maintained on eliquis prior to admission 5. Chronic kidney disease NKF stage IV with baseline creatinine around 2 mg/dL since September 2022. Etiology is likely diabetic kidney disease. UA shows 2+ protein 6. Volume overload Plan: Hemodialysis today. Can DC Lasix as patient does not have significant urine output today. However, about 410 ML documented yesterday Continue with oral sodium bicarb Repeat hemodialysis in a.m. given the significantly elevated BUN and creatinine.
--- NOTE | 2023-05-24 14:19 | P.CONS ---
History of Present Illness - Reason for Consult Consult date: 05/24/23 - Chief Complaint Rehab Recommendations - History of Present Illness Mr Birmingham is a 68 y/o right handed male who lives with his in a single story home with 2 JANAK. He was independent prior to admission with mobility and ADLs. He drives. His is supportive, and daughter that is able to assist when she is not working. Both patient and are retired. Patient has a known history of coronary artery disease, hypertension, hyperlipidemia, diabetes mellitus, benign prostatic hyperplasia, pulmonary embolism anticoagulated with Eliquis. He also has a history of COVID-19 infect ion and subsequent CVA felt to be secondary to hypercoagulability. In March 2023, he had a cardiac catheterization that revealed a chronic total occlusion of the right coronary artery which fills by collaterals circulation, chronic total occlusion of the mid LAD by the bifurcation of the large diagonal branch with flush occlusion. He was recommended coronary artery bypass grafting. Echocardiogram revealed moderate LV dysfunction with ejection fraction of 40- 45%. He was brought in May 13 for an elective CABG. He had undergone an off-pump coronary artery bypass grafting 2 with the left internal thoracic artery to the left anterior descending artery, saphenous vein graft from the aorta to the posterior descending artery, Left atrial appendage ligation with a 35mm Atriclip with Dr Claudine Noland. He was moved postoperatively in the intensive care unit, were he was able to be extubated. He developed a slight fever on 05/16 and his Cr was elevated. Diagnosed with acute on chronic kidney disease. He was seen by nephrology and a temporary catheter was placed for dialysis. On 05/18/23 a neurology consult was placed due to AMS. Patient has completed 2 hours of hemodialysis and about 30 minutes was left in completion of hemodialysis when he developed mental status change. He was unresponsive. No seizure-like activity was witnessed. Patient was very confused, did not know his or his daughter and grandson. Patient became hypotensive with blood pressure running around 80/40, and he was very obtunded. Patient was started on Levophed. Patient also developed atrial fibrillation with rapid ventricular rate. Patient's blood test shows normal WBC, hemoglobin 7.7, platelets are 130. ABG with pH of 7.39, pCO2 34, pO2 74 and saturation 95.7%. Sodium 135 potassium 3.5, BUN 50, creatinine 6.50. AST 255, ALT 19. TFTs normal. UA shows moderate amount of leukocyte Estrace, 131 WBC, none bacteria. Urine cultures negative. CT head revealed no acute intracranial process per nonspecific white matter changes, likely secondary to chronic small vessel ischemic disease. EEG was abno rmal due to background slowing of mild to moderate degree, suggestive of encephalopathy. No epileptiform activity was seen. Neurology ordered an MRI of the brain which was later discontinued as the surgical team did not feel it would change the outcomes. Patient had improvements in his cognition. PM&R consulted for rehab recommendations. Patient has been seen by therapies; most recently (05/20) needing total assist with bathing, UB dressing mod assist, LB dressing total assist, grooming mod assist. 05/24/23: Patient states he is doing ok, but feeling weak. He overall feels better than a couple of days ago. He denies CP and abdominal pain. He admits to SOB with endurance, denies SOB at rest. He has no complaints of pain. Of note, his WBCs increased to 20k today from 13k yesterday without clear etiology. LBM this morning. He is oliguric. He denies issues with swallowing. Discussed rehab options with patient, he is interested in IPR. Review of Systems reviewed, negative unless stated above in HPI Past Medical History Past Medical History: Diabetes Mellitus, Hypertension, Prostate Disorder Additional Past Medical History / Comment(s): stroke April 2022-affected memory, reading can be difficult, Covid 2021, slight decreased kidney function, enlarged prostate Last Myocardial Infarction Date:: unknown History of Any Multi-Drug Resistant Organisms: None Reported Past Surgical History: Heart Catheterization, Prostate Surgery Additional Past Surgical History / Comment(s): TURP, recent heart cath. Past Anesthesia/Blood Transfusion Reactions: No Reported Reaction Past Alcohol Use History: None Reported - Past Family History Mother Family Medical History: No Reported History Father Family Medical History: Myocardial Infarction (ID) Additional Family Medical History / Comment(s): massive ID @[id number] Medications and Allergies Home Medications Medication Instructions Recorded Confirmed Type Furosemide [Lasix] 20 mg PO DAILY 05/20/22 05/13/23 History Rosuvastatin [Crestor] 40 mg PO DAILY 05/20/22 05/13/23 History Sacubitril/Valsartan [Entresto 24 1 tab PO BID-W/MEALS 05/20/22 05/13/23 History mg-26 mg Tablet] Spironolactone [Aldactone] 25 mg PO PC-LUNCH 05/20/22 05/13/23 History carvediloL [Coreg] 6.25 mg PO BID-W/MEALS 05/20/22 05/13/23 History metFORMIN HCL 1,000 mg PO BID-W/MEALS 05/20/22 05/13/23 History Apixaban [Eliquis] 5 mg PO BID #0 05/25/22 05/13/23 Rx Aspirin 81 mg PO DAILY 30 Days #30 tab 05/25/22 05/13/23 Rx Liraglutide [Victoza 2-Javon] 1.2 mg SQ DAILY 04/13/23 05/13/23 History Allergies Allergy/AdvReac Type Severity Reaction Status Date / Time atorvastatin [From Lipitor] Allergy Rash/Hives Verified 05/13/23 05:54 Physical Exam Vitals: Vital Signs Temp Pulse Pulse Resp BP Pulse Ox 05/24/23 09:18 65 05/24/23 09:06 97.6 F 64 15 114/68 93 L 05/24/23 08:48 62 05/24/23 08:38 62 91 L 05/24/23 04:00 97.9 F 62 18 112/55 95 05/23/23 23:34 97.6 F 60 18 116/70 94 L 05/23/23 21:31 66 05/23/23 21:22 63 05/23/23 19:54 97.6 F 80 18 126/50 95 05/23/23 15:26 80 05/23/23 15:21 16 123/78 99 05/23/23 15:14 78 05/23/23 11:57 60 18 104/64 95 Intake and Output 05/23/23 05/24/23 05/24/23 22:59 06:59 14:59 Intake Total 200 Output Total 0 Balance 0 200 Intake: Oral 200 Output: Urine 0 Other: Voiding Method Urinal # Bowel Movements 1 2 Weight 115.2 kg General: WDWN, obese male, laying in bed, NAD, getting dialysis Head: Normocephalic, atraumatic. Eyes: Symmetric, wearing glasses Ears: Symmetric. Hearing within normal limits. Mouth: Clear. Neck: Supple. Cardiac: quality assurance monitor chassis on, heart hugger on, Calves supple, non tender, SCDs on, R > L LE edema Lungs: Breathing comfortably on RA. Chest symmetric. Abdomen: Soft, rounded, nontender. Extremities: Arthritic changes consistent with age. Neurological: Alert and oriented x 4 Speech is clear and fluent without paraphasic errors Cranial nerves: CN II-XII grossly intact. Sensation: Intact and symmetrical limbs. Musculoskeletal: ROM WFL EXCEPT: sternal precautions, Proximal greater than distal weakness MMT UE Sh Abd EE EF FABD WE HG Right 4 4 4 5 5 5 Left 4 4 4 5 5 5 MMT LE HF KE DF EHL Right 4 5 5 5 Left 4 5 5 5 Reflexes Biceps Triceps Brachioradialis Patella Achilles Babinski Hoffmans Right 1 1 1 2 0 Left 1 1 1 2 0 Skin: Skin intact where visible to head, neck, and bilateral upper and lower extremities EXCEPT: sternal incision with clear tape dressing, puncture sites from drains not appreciated today, right sided chest dialysis catheter, right LE incisions with mild erythema, glued Psych: Calm, cooperative Results CBC & Chem 7: 05/24/23 11:06 05/24/23 11:06 Labs: Abnormal Lab Results - Last 24 Hours (Table) 05/23/23 05/23/23 05/23/23 Range/Units 11:39 16:48 20:14 POC Glucose (mg/dL) 237 H 197 H 220 H (70-110) mg/dL 05/24/23 05/24/23 Range/Units 06:12 11:19 POC Glucose (mg/dL) 137 H 205 H (70-110) mg/dL Microbiology - Last 24 Hours (Table) 05/18/23 08:30 Blood Culture - Final Blood 05/18/23 08:30 Blood Culture - Final Blood Assessment and Plan Assessment: # 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 Left atrial appendage ligation -sternal precautions, no heavy lifting #AMS, thought to be metabolic encephalopathy -no seizure activity on EEG # Acute Leukocytosis -05/24/23 Patient with WBC 20, up from 13 k yesterday. Recommending work up, afebrile # Acute on chronic kidney injury requiring Dialysis -05/24/23 Dialysis today, nephrology following, Cr 8.07 #Paroxysmal atrial fibrillation with RVR -cardio following # Ischemic cardiomyopathy with ejection fraction 40-45% # Diabetes mellitus with PPN # History of CVA -affected vision per records, patient declines deficits # History of PE -on eliquis # Bowel/ Bladder: Nursing to monitor and report concerns if any. -05/24/23 patient reports he is anuric # Diet- Carb consistent, heart healthy # Skin/wound: Skin/Wound care to follow as needed -sternal surgical sites # Pain Management-Tylenol prn # DVT Prophylaxis: Eliquis # Comorbidities:Hypertension, BPH, HLD, Previous COVID-19 infection, CAD # Your medical dx and mgt Goals: Modified Independent mobility and ADLS both basic and advanced; increased functional mobility/strength; increased balance, safety, endurance. Improvement in medical issues through your care. Barriers: endurance, cardiac precautions Discharge recommendation: Recommending IPR when patient is medically stable. Acute Leukocytosis warrants work up per primary team before he can be accepted to IPR. Will need insurance authorization. Patient is agreeable. Patient seen and examined in coordination with Dr. Skinner
--- NOTE | 2023-05-24 15:24 | P.PN ---
Subjective Progress Note Date: 05/24/23 The patient is seen today 05/19/2023 in follow-up in the intensive care unit. He is currently sitting up in bed. Awake, alert, confused, slow to respond. Weak. EEG reveals background slowing of mild to moderate degree suggestive of encephalopathy. Continues to maintain good O2 saturations in the 90s on 3 L/m per nasal cannula. Ultrasound of the chest revealed no significant fluid for thoracentesis. He is receiving hemodialysis today. Yesterday they removed 500 ML's and hoping for thousand today. He is on norepinephrine at 0.02 mcg/kg/m. 0.9 normal saline at 20 ML's per hour. Insulin drip currently on hold. He is on antibiotics in the form of vancomycin and cefepime. He remains on bro nchodilators. Working with the incentive spirometer. Continued on oral amiodarone. Anticoagulated with Eliquis. He is status post 2 units of packed red blood cells this admission. Current hemoglobin 7.7. Platelets 147. White count 8.4. Sodium 134. Potassium 3.9. Bicarb 34. BUN 36. Creatinine 5.26. Glucose 155. AST 257. ALT 43. The patient is seen today 05/20/2023 in follow-up in the intensive care unit. He is currently up in a chair at the bedside. Awake and alert in no acute d istress. He remains afebrile. He is down to 2 L nasal cannula and maintaining O2 saturations in the 90s. Currently in sinus rhythm. Chest x-ray showing some atelectasis of the right lower lobe. Encouraged increased use the incentive spirometer. Left pleural chest tube remains in place. He did receive hemodialysis yesterday with 2 L of fluid removed. His norepinephrine has been off since 6:30 this morning. He is continued on vancomycin and cefepime. Cultures are revealing no growth. He is status post 2 units of packed red blood cells this admission. Current hemoglobin 8.7. Platelets 151. White count 9.2. Sodium 134. Potassium 3.8. Bicarb 26. BUN 40. Creatinine 4.55. Glucose 203. AST 207. ALT 28. Cortisol 28. He remains on DuoNeb inhalations. The patient is seen today 05/21/2020 in the intensive care unit. Distress. Plan is for hemodialysis with a goal of 3 L to be removed today. He is also to have a permacath placed. He'll be on a Wednesday schedule for his dialysis treatments. Chest x-ray shows improving aeration of the right lower lobe. Left pleural chest tube has been removed. No evidence of pneumothorax. He is remaining in sinus rhythm. He is maintaining O2 saturations in the 90s on 2 L/m per nasal cannula. He's been afebrile. Hemodynamically stable. He is status post 2 units of packed red blood cells this admission. Current hemoglobin 8.8. Platelets 175. White count 9.2. Sodium 133. Potassium 3.7. Bicarb 26. BUN 61. Creatinine 5.94. Glucose 116. Urine, blood, sputum cultures all revealed no growth. He remains on bronchodilators. Continues to work with the incentive spirometer. The patient is seen today 05/22/2023 in follow-up in the intensive care unit. Currently sitting up in a chair at the bedside. Awake and alert in no acute distress. Maintaining good O2 saturations in the 90s on room air. No IV fluids. He did receive hemodialysis yesterday with 2.8 L of fluid removed. He did have a right internal jugular hemodialysis catheter placed yesterday. Right femoral catheter was removed. Chest x-ray reveals small right pleural effusion with associated atelectasis. He is continuing to work with his incentive spirometer. Urine, blood and sputum cultures all revealed no growth. He remains on DuoNeb inhalations. Anticoagulated with Eliquis. Progress note dated 05/23/2023. The patient is seen today in room 383. He was transferred out of the intensive care unit yesterday. The patient's on room air. He's not receiving any IV fluids. The plan is for Wednesday/Wednesday/Wednesday hemodialysis. The patient did not have dialysis yesterday today. He's feeling a bit stronger day by day. Sti ll has a long way to go. White count 13.7, hemoglobin 10, hematocrit 29.2, and platelet count is normal. Sodium 133, potassium 4, chlorides 97, CO2 23, BUN 74, creatinine 6.89. Chest x-ray shows an small right pleural effusion. On today's evaluation of 05/24/2023, the patient is on room air oxygen. The patient is not having any major respiratory difficulties. The patient is using the incentive spirometer. Hemodialysis is being performed to a permacath in his right IJ. Chest x-ray from this morning shows a small amount of fluid in the right lung. His urine output is minimal at this point in time. No significant urine output and the patient remains in renal failure. No chest pain. No shortness of breath. He is postop day #11 following two-vessel bypass surgery. He also has an acute kidney injury and currently is on hemodialysis. His cardiac rhythm is sinus. Blood work from today shows a white cell count 20 with a hemoglobin of 10.2. BUN is 103 with a creatinine of 8 and a sodium level is at 132. Objective - Vital Signs Vital signs: Vital Signs Temp 97.6 F 05/24/23 09:06 Pulse 60 05/24/23 12:00 Resp 18 05/24/23 11:41 BP 145/66 05/24/23 11:41 Pulse Ox 95 05/24/23 11:41 FiO2 50 05/13/23 15:13 Intake & Output 05/23/23 05/24/23 05/24/23 18:59 06:59 18:59 Intake Total 200 Output Total 110 0 Balance -110 0 200 Weight 115.2 kg Intake: Oral 200 Output: Urine 110 0 Other: Voiding Method Urinal Urinal # Bowel Movements 2 1 2 ABP, PAP, CO, CI - Last Documented Arterial Blood Pressure 116/42 Pulmonary Artery Pressure 29/9 Cardiac Output 4.5 Cardiac Index 2.2 - Exam CONSTITUTIONAL: Appears comfortable, cooperative, no acute distress RESPIRATORY: Lungs sounds diminished bilaterally, right greater than left. Respirations even, nonlabored. Currently on room air with oxygen saturation 95%. Able to achieve 1250 mL on incentive spirometry. Strong non-productive cough. CARDIOVASCULAR: S1, S2 present. Regular rate and rhythm, sinus rhythm on telemetry. Sternum stable. Palpable peripheral pulses bilaterally. Generalized edema present. No calf pain or tenderness noted. Heart hugger, antiembolism stockings, SCDs present. GASTROINTESTINAL: Abdomen soft, nontender, nondistended, obese. Active bowel sounds present 4 quadrants. Tolerating diet. Positive bowel movement 05/23 GENITOURINARY: No further urine output, bladder scan 100 mL INTEGUMENTARY: Skin is warm and dry. Anterior chest incision well approximat ed, dressing removed. Right lower extremity EVH site well approximated without redness or drainage. NEUROLOGIC: Cranial nerves II through XII intact MUSKULOSKELETAL: Able to move all extremities, strength equal bilaterally PSYCHIATRIC: Alert and oriented to person, place, year and situation INVASIVE LINES AND TUBES: Right chest PermCath present - Labs CBC & Chem 7: 05/24/23 11:06 05/24/23 11:06 Labs: Abnormal Lab Results - Last 24 Hours (Table) 05/23/23 05/23/23 05/24/23 Range/Units 16:48 20:14 06:12 WBC (3.8-10.6) k/uL RBC (4.30-5.90) m/uL Hgb (13.0-17.5) gm/dL Hct (39.0-53.0) % Sodium (137-145) mmol/L Chloride (98-107) mmol/L Carbon Dioxide (22-30) mmol/L BUN (9-20) mg/dL Creatinine (0.66-1.25) mg/dL Glucose (74-99) mg/dL POC Glucose (mg/dL) 197 H 220 H 137 H (70-110) mg/dL Calcium (8.4-10.2) mg/dL 05/24/23 05/24/23 05/24/23 Range/Units 11:06 11:06 11:19 WBC 20.1 H (3.8-10.6) k/uL RBC 3.20 L (4.30-5.90) m/uL Hgb 10.2 L (13.0-17.5) gm/dL Hct 31.0 L (39.0-53.0) % Sodium 132 L (137-145) mmol/L Chloride 94 L (98-107) mmol/L Carbon Dioxide 20 L (22-30) mmol/L BUN 103 H* (9-20) mg/dL Creatinine 8.07 H* (0.66-1.25) mg/dL Glucose 189 H (74-99) mg/dL POC Glucose (mg/dL) 205 H (70-110) mg/dL Calcium 7.9 L (8.4-10.2) mg/dL Microbiology - Last 24 Hours (Table) 05/18/23 08:30 Blood Culture - Final Blood 05/18/23 08:30 Blood Culture - Final Blood Assessment and Plan Plan: Coronary artery disease status post off-pump coronary artery bypass grafting 2 with a left internal thoracic artery to the left anterior descending artery, saphenous vein graft from the aorta to the posterior descending artery. Left atrial appendage ligation. Postoperative day #11. Acute kidney injury requiring hemodialysis. Initiated on a Wednesday-Wednesday- Wednesday schedule. Another session of hemodialysis being done today Small right-sided pleural effusion, post thoracotomy and cardiac surgery History of chronic kidney disease, stage IV. Febrile illness, cultures revealing no growth, completed vancomycin and cefepime. Ischemic cardiomyopathy with ejection fraction 40-45%. History of pulmonary embolism previously on Eliquis. Diabetes mellitus. Hypertension. CVA. BPH. Hyperlipidemia. Previous COVID-19 infection. Plan: Respiratory status is stable and the patient is currently on room air oxygen Continue use of incentive spirometer Continue hemodialysis per nephrology Monitor the white cell count which is up to 20, no signs of an infection at this point in time and the patient is afebrile and hemodynamically stable Continue aspirin Continue amiodarone Continue Eliquis Continue metoprolol 12.5 mg by mouth twice a day Midodrine for hypotension Bicarb supplements We'll follow
[2023-05-24 16:19] LABS: Glucose,Whole Blood 131 mg/dL (70-110)
[2023-05-24 20:07] LABS: Glucose,Whole Blood 287 mg/dL (70-110)
[2023-05-25 06:17] LABS: Glucose,Whole Blood 139 mg/dL (70-110)
[2023-05-25] MEDS: INSULIN ASPART (NovoLOG) 100 UNIT/ML VIAL SQ SCH ×8 (06:19→20:05)
[2023-05-25] MEDS: MIDODRINE 5 MG TAB PO SCH (06:20)
[2023-05-25] MEDS: PANTOPRAZOLE 40 MG TABLET PO SCH (06:28)
[2023-05-25] MEDS: INSULIN DETEMIR (LEVEMIR) 100 UNIT/ML SYR SQ SCH ×2 (06:29→19:59)
[2023-05-25] MEDS ORDERED: INSULIN DETEMIR (LEVEMIR) 100 UNIT/ML SYR SQ SCH (07:00)
[2023-05-25 07:33] LABS: Glucose,Whole Blood 130 mg/dL (70-110)
--- NOTE | 2023-05-25 07:48 | P.PN ---
Subjective Progress Note Date: 05/25/23 Principal diagnosis: Two-vessel coronary artery disease. Previous medical history of nonischemic cardiomyopathy with EF 25-30% with improvement EF of 45-50% with intense medical therapy, chronic LV thrombus, pulmonary embolus on eliquis outpatient, hypertension, hyperlipidemia, diabetes mellitus, CVA with residual right-sided weakness, COVID-19 infection in early 2021, chronic kidney disease stage IV with baseline creatinine of 2.0, and BPH status post TURP POD #12 Off pump coronary artery bypass grafting x 2. Left internal thoracic artery (in-situ) to left anterior descending artery, saphenous vein from aorta to posterior descending artery, endoscopic right greater saphenous vein harvest, left atrial appendage ligation using 35mm AtriClip, graft flow measurements usi ng the [employer]-Stim flow meter system, and intraoperative transesophageal echocardiogram performed by anesthesia. Postoperative acute blood loss anemia and thrombocytopenia, expected given hemodilution Intra and postoperative hypotension, unexpected, vasoplegia Acute kidney injury, likely secondary to hypoperfusion, status post temporary hemodialysis catheter, status post permacath with removal of right groin hemodialysis catheter Paroxysmal atrial fibrillation, known common occurrence after cardiac surgery, currently in normal sinus rhythm Mental status change, unsure of eitiology, likely metabolic encephalopathy vs new stroke, resolved Leukocytosis, unknown origin, remains afebrile, all cultures negative Medical debility The patient was seen and examined sitting up in a recliner on the cardiac stepdown unit in no acute distress eating breakfast. He denies any pain or shortness of breath currently. Currently sinus rhythm, blood pressure stable, midodrine discontinued as patient has not needed any doses in >24 hours. Remains on room air and able to achieve 1250 mL on incentive spirometry. Hemodialysis was completed yesterday with removal of 2.5 L, next hemodialysis planned for today. Strength equal bilaterally, patient has ambulated short distances into the hallway with assistance. Seen by [facility] group, will accept at [facility] hopefully this week. Would like leukocytosis investigated, patient has remained afebrile, not coughing up sputum, bladder scan continues to show less than 100 mL, multiple cultures have been drawn and all are negative. Chest x- ray reviewed, labs pending. Family updated daily, expressed concern that patient may be getting depressed and may need more visitors, patient denies any feelings of depression, states he feels fine, doesn't want more visitors. Will continue to update family daily. Objective - Vital Signs Vital signs: Vital Signs Temp 98.3 F 05/25/23 03:59 Pulse 64 05/25/23 03:59 Resp 20 05/25/23 03:59 BP 124/63 05/25/23 03:59 Pulse Ox 94 L 05/25/23 03:59 FiO2 50 05/13/23 15:13 Intake & Output 05/24/23 05/25/23 05/25/23 18:59 06:59 18:59 Intake Total 900 Output Total 3000 15 Balance -2099 -15 Weight 118 kg 113.1 kg Intake: Oral 400 Hemodialysis 500 Output: Urine 0 0 Stool 15 Hemodialysis 3000 Other: Voiding Method Urinal # Voids 0 # Bowel Movements 1 ABP, PAP, CO, CI - Last Documented Arterial Blood Pressure 116/42 Pulmonary Artery Pressure 29/9 Cardiac Output 4.5 Cardiac Index 2.2 - Exam CONSTITUTIONAL: Appears comfortable, cooperative, no acute distress RESPIRATORY: Lungs sounds diminished bilaterally, right greater than left. Respirations even, nonlabored. Currently on room air with oxygen saturation 94%. Able to achieve 1250 mL on incentive spirometry. Strong non-productive cough. CARDIOVASCULAR: S1, S2 present. Regular rate and rhythm, sinus rhythm on telemetry. Sternum stable. Palpable peripheral pulses bilaterally. Generalized edema present. No calf pain or tenderness noted. Heart hugger, antiembolism stockings, SCDs present. GASTROINTESTINAL: Abdomen soft, nontender, nondistended, obese. Active bowel sounds present 4 quadrants. Tolerating diet. Positive bowel movement 05/24 GENITOURINARY: No further urine output, bladder scan 100 mL, receiving HD INTEGUMENTARY: Skin is warm and dry. Anterior chest incision well approximated. Right lower extremity EVH site well approximated without redness or drainage. NEUROLOGIC: Cranial nerves II through XII intact MUSKULOSKELETAL: Able to move all extremities, strength equal bilaterally PSYCHIATRIC: Alert and oriented to person, place, year and situation INVASIVE LINES AND TUBES: Right chest PermCath present - Allied health notes Allied health notes reviewed: nursing - Labs CBC & Chem 7: 05/24/23 11:06 05/24/23 11:06 Labs: Abnormal Lab Results - Last 24 Hours (Table) 05/24/23 05/24/23 05/24/23 Range/Units 11:06 11:06 11:19 WBC 20.1 H (3.8-10.6) k/uL RBC 3.20 L (4.30-5.90) m/uL Hgb 10.2 L (13.0-17.5) gm/dL Hct 31.0 L (39.0-53.0) % Sodium 132 L (137-145) mmol/L Chloride 94 L (98-107) mmol/L Carbon Dioxide 20 L (22-30) mmol/L BUN 103 H* (9-20) mg/dL Creatinine 8.07 H* (0.66-1.25) mg/dL Glucose 189 H (74-99) mg/dL POC Glucose (mg/dL) 205 H (70-110) mg/dL Calcium 7.9 L (8.4-10.2) mg/dL 05/24/23 05/24/23 05/25/23 Range/Units 16:17 20:06 06:12 WBC (3.8-10.6) k/uL RBC (4.30-5.90) m/uL Hgb (13.0-17.5) gm/dL Hct (39.0-53.0) % Sodium (137-145) mmol/L Chloride (98-107) mmol/L Carbon Dioxide (22-30) mmol/L BUN (9-20) mg/dL Creatinine (0.66-1.25) mg/dL Glucose (74-99) mg/dL POC Glucose (mg/dL) 131 H 287 H 139 H (70-110) mg/dL Calcium (8.4-10.2) mg/dL 05/25/23 Range/Units 07:21 WBC (3.8-10.6) k/uL RBC (4.30-5.90) m/uL Hgb (13.0-17.5) gm/dL Hct (39.0-53.0) % Sodium (137-145) mmol/L Chloride (98-107) mmol/L Carbon Dioxide (22-30) mmol/L BUN (9-20) mg/dL Creatinine (0.66-1.25) mg/dL Glucose (74-99) mg/dL POC Glucose (mg/dL) 130 H (70-110) mg/dL Calcium (8.4-10.2) mg/dL - Imaging and Cardiology Chest x-ray: image reviewed Assessment and Plan Assessment: Two-vessel coronary artery disease, status post off-pump 2 vessel CABG History of nonischemic cardiomyopathy with EF 25-30% with improvement EF of 45- 50% with intense medical therapy, on Entresto outpatient Chronic LV thrombus Pulmonary embolus on eliquis outpatient History of hypertension Hyperlipidemia, treated, cholesterol 108, LDL 44 Diabetes mellitus, hemoglobin A1c 7.4% CVA with residual right-sided weakness COVID-19 infection in early 2021 Chronic kidney disease stage IV with baseline creatinine of 2.0 BPH status post TURP Postoperative acute blood loss anemia and thrombocytopenia, expected Intra and postoperative hypotension, unexpected, vasoplegia Acute kidney injury, likely secondary to hypoperfusion, status post temporary hemodialysis catheter, status post permacath placement, starting to make urine Paroxysmal atrial fibrillation, status post ligation of left atrial appendage, currently in sinus rhythm Mental status change, unsure of eitiology, likely metabolic encephalopathy vs new stroke, resolved Leukocytosis, unclear eitiology, afebrile, cultures negative Medical debility Plan: Continue to maximize medical therapy with low dose aspirin, statin, beta keara therapy Continue amiodarone for afib prophylaxis, continue Eliquis Encourage incentive spirometry use 10 times every hour while awake. Bronchodilators per pulmonology. Midodrine discontinued Will monitor daily labs and chest x-rays. Electrolyte replacement per nephrology. Avoid nephrotoxic agents GI/DVT prophylaxis. Increase activity as tolerated. PT/OT/cardiac rehab following Pain control with current medication regimen. No Toradol due to kidney disease. Insulin management per internal medicine service, patient's preoperative hemoglobin A1c was 7.4%, needs tight blood sugar control as blood sugars still running over 200 at times, scheduled novolog and levemir increased. No metformin due to ANURADHA Strict accurate intake and output Daily weights Dialysis per nephrology Patient to shower daily Discharge planning in progress, will discharge to [facility] this week as patient needs high acuity nursing care, daily physician assessments, frequent lab work, and nutritional management Will continue to update family daily More recommendations to follow
[2023-05-25] MEDS: IPRATROPIUM-ALBUTEROL 3 ML NEB INHALATION SCH ×4 (08:03→20:50)
[2023-05-25] MEDS: APIXABAN 2.5 MG TABLET PO SCH ×2 (08:19→19:59)
[2023-05-25] MEDS: ASPIRIN 81 MG PO SCH (08:19)
[2023-05-25] MEDS: SODIUM BICARBONATE TAB 650 MG TAB PO SCH ×2 (08:19→19:59)
[2023-05-25] MEDS: AMIODARONE 200 MG TAB PO SCH (08:19)
[2023-05-25] MEDS: FOLIC ACID 1 MG TAB PO SCH (08:19)
[2023-05-25] MEDS: METOPROLOL TARTRATE 12.5 MG TAB PO SCH ×2 (08:19→19:59)
[2023-05-25 08:22] LABS: Potassium 3.9 mmol/L (3.5-5.1)
[2023-05-25 08:23] LABS: African American GFR (CKD) 9 (>60 ml/min/1.73 sqM); Anion Gap 15 mmol/L; Blood Urea Nitrogen 79 mg/dL (9-20); Calcium 7.6 mg/dL (8.4-10.2); Carbon Dioxide 22 mmol/L (22-30); Chloride 95 mmol/L (98-107); Glucose 136 mg/dL (74-99); Magnesium 2.2 mg/dL (1.6-2.3); Non-African American GFR(CKD) 8 (>60 ml/min/1.73 sqM); Sodium 132 mmol/L (137-145)
--- NOTE | 2023-05-25 08:40 | XR ---
EXAMINATION TYPE: XR chest 2V DATE OF EXAM: 05/25/2023 COMPARISON: 05/24/2023 HISTORY: Postcardiac surgery FINDINGS: There are bilateral pleural effusions with cardiomegaly and bibasilar infiltrate. There is a diffuse interstitial pattern. Median sternotomy changes seen. Dialysis catheter stable. Left atrial appendag e noted. Hypertrophic arthropathy of the shoulders. IMPRESSION: 1. Correlate for CHF. Findings stable.
[2023-05-25 08:51] LABS: HCT 26.8 % (39.0-53.0); HGB 8.9 gm/dL (13.0-17.5); MCH 32.1 pg (25.0-35.0); MCHC 33.3 g/dL (31.0-37.0); MCV 96.2 fL (80.0-100.0); Mean Platelet Volume 7.7; Platelet Count 215 k/uL (150-450); RBC 2.78 m/uL (4.30-5.90); RDW 14.8 % (11.5-15.5); WBC 13.3 k/uL (3.8-10.6)
--- NOTE | 2023-05-25 10:24 | P.PN ---
Subjective Pleasant 68 years old male with past medical history of Diabetes Mellitus, Hypertension, hyperlipidemia, benign prostatic hypertrophy, pulmonary embolism on blood thinner He was admitted for coronary artery disease affecting mainly to vessels and underwent coronary artery bypass surgery yesterday and he was on mechanical ventilation for a short lived time, eventually he got extubated. Comfortable in bed with no chest pain or dyspnea. Hemodynamically stable. Patient has mild worsening of creatinine 2.8, 1.3 yesterday 05/15/2023 Fascia temo bed comfortably with no complaints. Blood pressure still borderline. We will see improvement on 15. Creatinine up to 4.0. Nephrology was consulted. Patient is status post bolus of 500 mL of normal saline. His urine analysis is abnormal. Urine culture is negative. Bladder scan is negative. We don't a repeat urine culture Patient remains on aspirin Plavix and midodrine by surgery team 05/16/23 pt is awake alert with no dyspnea, no chest pain ,he denies any specific complaints but his renal function keep worsening and today his creatinine went up to 5.4, he was lasix drip at 20 mg per hour, pt is mostly will need hemodialysis per nephrology team pt is on dobutamine with poor urine output. pt has mild leukocytosis sugar is more 300 so increased levemir to 5 u bid and novolog 5 u tid ac pt is on bicarb drip as well kept on asprin and plavix , and midodrine 05/17/2023 Patient remains in ICU closely monitored case/critical care team, the primary cardiothoracic surgery team and chief operator as well as mental health aides teacher. He is status post bypass surgery and today is postoperative day #4. Creatinine is elevated up to 7.3 today. He is getting treatment for hemodialysis started here in the ICU from. His Lasix drip and backup as well He remains on dopamine drip Blood pressure is borderline with systolic blood pressure is stable around 90s to 100. Hemoglobin 7.7, WBC within the reference range today 9000. Glucose was elevated more than 300 despite doubling the dose of Levemir last night to 5 mg twice a day. Therefore he was started on insulin drip This was discussed with patient in the thoracic primary team 05/18/2023 Patient is very lethargic and tired looking today. Open eyes to verbal stimuli and answer questions. He follows commands. Because of his change mentation neurologist has been consulted from a most likely patient will require MRI of the brain and EEG to rule out intracranial lesions or seizure activities. Blood pressure was controlled Labs reviewed Patient remains on insulin drip, dopamine drip and IV vancomycin 05/19/2023 Patient in the ICU, severely weak and lethargic and somewhat drowsy. He's undergoing hemodialysis and creatinine is elevated. Vitals are the same. Hemoglobin 7.7. He is on aspirin 81 mg Plavix and Protonix. I going to stop the insulin drip and start Levemir insulin and go up gradually with insulin sliding scale 05/24/2023 Patient was seen appropriate 3, is lying in the recliner comfortable, relaxed a pleasant. He denies any specific complaints. No chest pain dyspnea or other new complaint. He is hemodynamically stable. Stable and improving except for leukocytosis to 20,000. Patient currently sugar is controlled around 200 with Levemir 10 units twice a day. Metformin admission was because of persistent infection. B12 1355 which is elevated patient may benefit from rehab upon discharge 05/25/2030 Patient awake and alert, no chest pain, no dyspnea gets a breathing treatment. No new complaints. Vitals are stable. Hemoglobin 8.9, WBC 13,000, creatinine 6.5. Glucose control. Chest x-ray showing CHF but stable Patient remains on Eliquis and baby aspirin. Also he is on IV Lasix 40 mg twice daily. Objective - Vital Signs Vital signs: Vital Signs Temp 97.4 F L 05/25/23 08:00 Pulse 62 05/25/23 08:16 Resp 18 05/25/23 08:00 BP 121/72 05/25/23 08:00 Pulse Ox 96 05/25/23 08:05 FiO2 50 05/13/23 15:13 Intake & Output 05/24/23 05/25/23 05/25/23 18:59 06:59 18:59 Intake Total 900 118 Output Total 3000 15 Balance -2099 118 Weight 118 kg 113.1 kg Intake: Oral 400 118 Hemodialysis 500 Output: Urine 0 0 Stool 15 Hemodialysis 3000 Other: Voiding Method Urinal # Voids 0 # Bowel Movements 1 1 ABP, PAP, CO, CI - Last Documented Arterial Blood Pressure 116/42 Pulmonary Artery Pressure 29/9 Cardiac Output 4.5 Cardiac Index 2.2 - Exam GENERAL: The patient is alert and oriented x3, not in any acute distress. Well developed, well nourished. HEENT: Pupils are round and equally reacting to light. EOMI. No scleral icterus. No conjunctival pallor. Normocephalic, atraumatic. No pharyngeal erythema. No thyromegaly. CARDIOVASCULAR: S1 and S2 present. No murmurs, rubs, or gallops. PULMONARY: Chest is clear to auscultation, no wheezing , no crackles. ABDOMEN: Soft, nontender, nondistended, normoactive bowel sounds. No palpable organomegaly. MUSCULOSKELETAL: No joint swelling or deformity. EXTREMITIES: No cyanosis, clubbing, or pedal edema. NEUROLOGICAL: Gross neurological examination did not reveal any focal deficits. SKIN: No rashes. no petechiae. - Labs CBC & Chem 7: 05/25/23 07:47 05/25/23 07:47 Labs: Abnormal Lab Results - Last 24 Hours (Table) 05/24/23 05/24/23 05/24/23 Range/Units 11:06 11:06 11:19 WBC 20.1 H (3.8-10.6) k/uL RBC 3.20 L (4.30-5.90) m/uL Hgb 10.2 L (13.0-17.5) gm/dL Hct 31.0 L (39.0-53.0) % Sodium 132 L (137-145) mmol/L Chloride 94 L (98-107) mmol/L Carbon Dioxide 20 L (22-30) mmol/L BUN 103 H* (9-20) mg/dL Creatinine 8.07 H* (0.66-1.25) mg/dL Glucose 189 H (74-99) mg/dL POC Glucose (mg/dL) 205 H (70-110) mg/dL Calcium 7.9 L (8.4-10.2) mg/dL 05/24/23 05/24/23 05/25/23 Range/Units 16:17 20:06 06:12 WBC (3.8-10.6) k/uL RBC (4.30-5.90) m/uL Hgb (13.0-17.5) gm/dL Hct (39.0-53.0) % Sodium (137-145) mmol/L Chloride (98-107) mmol/L Carbon Dioxide (22-30) mmol/L BUN (9-20) mg/dL Creatinine (0.66-1.25) mg/dL Glucose (74-99) mg/dL POC Glucose (mg/dL) 131 H 287 H 139 H (70-110) mg/dL Calcium (8.4-10.2) mg/dL 05/25/23 05/25/23 05/25/23 Range/Units 07:21 07:47 07:47 WBC 13.3 H (3.8-10.6) k/uL RBC 2.78 L (4.30-5.90) m/uL Hgb 8.9 L (13.0-17.5) gm/dL Hct 26.8 L (39.0-53.0) % Sodium 132 L (137-145) mmol/L Chloride 95 L (98-107) mmol/L Carbon Dioxide (22-30) mmol/L BUN 79 H (9-20) mg/dL Creatinine 6.73 H (0.66-1.25) mg/dL Glucose 136 H (74-99) mg/dL POC Glucose (mg/dL) 130 H (70-110) mg/dL Calcium 7.6 L (8.4-10.2) mg/dL Assessment and Plan Assessment: Coronary artery disease status post CABG surgery on 05/13 Acute kidney injury on chronic kidney disease stage III. Requiring hemodialysis Mental status most likely metabolic encephalopathy, rule out intracranial lesion Cardiomyopathy with ejection fraction 40-45% Diabetes mellitus History of Hypertension, currently pressure is borderline Hyperlipidemia History of pulmonary embolism on Eliquis Leukocytosis, Improving Plan: Continue with Aspirin and Plavix Neurology consult, patient on MRI of the brain and EEG stump insulin drip and start Levemir insulin with insulin sliding scale Continue with amiodarone drip per critical care team. Started on hemodialysis per nephrology team Continue the breathing treatment Start insulin drip and monitor glucose Incentive spirometry Nephrology consult Several consultants on the case significant cardiothoracic surgery primary team, pulmonary team and cardiology team Labs and medication reviewed.. Continue same treatment. Continue with symptomatic treatment. Resume home medication. Monitor lytes and vitals. DVT and GI prophylaxis. Further recommendations depends on the clinical course of the patient DVT prophylaxis: Deferred to surgery team GI Prophylaxis: Ppi thank you for consulting us and we will follow up with the
--- NOTE | 2023-05-25 11:07 | P.PN ---
Subjective Progress Note Date: 05/25/23 Mr Birmingham is a 68 y/o right handed male who lives with his in a single story home with 2 JANAK. He was independent prior to admission with mobility and ADLs. He drives. His is supportive, and daughter that is able to assist when she is not working. Both patient and are retired. Patient has a known history of coronary artery disease, hypertension, hyperlipidemia, diabetes mellitus, benign prostatic hyperplasia, pulmonary embolism anticoagulated with Eliquis. He also has a history of COVID-19 infection and subsequent CVA felt to be secondary to hypercoagulability. In March 2023, he had a cardiac catheterization that revealed a chronic total occlusion of the right coronary artery which fills by collaterals circulation, chronic total occlusion of the mid LAD by the bifurcation of the large diagonal branch with flush occlusion. He was recommended coronary artery bypass grafting. Echocardiogram revealed moderate LV dysfunction with ejection fraction of 40- 45%. He was brought in May 13 for an elective CABG. He had undergone an off-pump coronary artery bypass grafting 2 with the left internal thoracic artery to the left anterior descending artery, saphenous vein graft from the aorta to the posterior descending artery, Left atrial appendage ligation with a 35mm Atriclip with Dr Claudine Noland. He was moved postoperatively in the intensive care unit, were he was able to be extubated. He developed a slight fever on 05/16 and his Cr was elevated. Diagnosed with acute on chronic kidney disease. He was seen by nephrology and a temporary catheter was placed for dialysis. On 05/18/23 a neurology consult was placed due to AMS. Patient has completed 2 hours of hemodialysis and about 30 minutes was left in completion of hemodialysis when he developed mental status change. He was unresponsive. No seizure-like activity was witnessed. Patient was very confused, did not know his or his daughter and grandson. Patient became hypotensive with blood pressure running around 80/40, and he was very obtunded. Patient was started on Levophed. Patient also developed atrial fibrillation with rapid ventricular rate. Patient's blood test shows normal WBC, hemoglobin 7.7, platelets are 130. ABG with pH of 7.39, pCO2 34, pO2 74 and saturation 95.7%. Sodium 135 potassium 3.5, BUN 50, creatinine 6.50. AST 255, ALT 19. TFTs normal. UA shows moderate amount of leukocyte Estrace, 131 WBC, none bacteria. Urine cultures negative. CT head revealed no acute intracranial process per nonspecific white matter changes, likely secondary to chronic small vessel ischemic disease. EEG was abnormal due to background slowing of mild to moderate degree, suggestive of encephalopathy. No epileptiform activity was seen. Neurology ordered an MRI of the brain which was later discontinued as the surgical team did not feel it would change the outcomes. Patient had improvements in his cognition. PM&R consulted for rehab recommendations. Patient has been seen by therapies; m ost recently (05/20) needing total assist with bathing, UB dressing mod assist, LB dressing total assist, grooming mod assist. 05/24/23: Patient states he is doing ok, but feeling weak. He overall feels better than a couple of days ago. He denies CP and abdominal pain. He admits to SOB with endurance, denies SOB at rest. He has no complaints of pain. Of note, his WBCs increased to 20k today from 13k yesterday without clear etiology. LBM this morning. He is oliguric. He denies issues with swallowing. Discussed rehab options with patient, he is interested in IPR. Reviewed patient's records 05/25/23, patients WBC 13k today, afebrile. Objective - Vital Signs Vital signs: Vital Signs Temp 97.4 F L 05/25/23 08:00 Pulse 62 05/25/23 08:16 Resp 18 05/25/23 08:00 BP 121/72 05/25/23 08:00 Pulse Ox 96 05/25/23 08:05 FiO2 50 05/13/23 15:13 Intake & Output 05/24/23 05/25/23 05/25/23 18:59 06:59 18:59 Intake Total 900 118 Output Total 3000 15 Balance -2099 -15 118 Weight 118 kg 113.1 kg Intake: Oral 400 118 Hemodialysis 500 Output: Urine 0 0 Stool 15 Hemodialysis 3000 Other: Voiding Method Urinal Urinal # Voids 0 # Bowel Movements 1 1 ABP, PAP, CO, CI - Last Documented Arterial Blood Pressure 116/42 Pulmonary Artery Pressure 29/9 Cardiac Output 4.5 Cardiac Index 2.2 - Labs CBC & Chem 7: 05/25/23 07:47 05/25/23 07:47 Labs: Abnormal Lab Results - Last 24 Hours (Table) 07/05/24/23 05/24/23 Range/Units 11:06 11:06 11:19 WBC 20.1 H (3.8-10.6) k/uL RBC 3.20 L (4.30-5.90) m/uL Hgb 10.2 L (13.0-17.5) gm/dL Hct 31.0 L (39.0-53.0) % Sodium 132 L (137-145) mmol/L Chloride 94 L (98-107) mmol/L Carbon Dioxide 20 L (22-30) mmol/L BUN 103 H* (9-20) mg/dL Creatinine 8.07 H* (0.66-1.25) mg/dL Glucose 189 H (74-99) mg/dL POC Glucose (mg/dL) 205 H (70-110) mg/dL Calcium 7.9 L (8.4-10.2) mg/dL 05/24/23 05/24/23 05/25/23 Range/Units 16:17 20:06 06:12 WBC (3.8-10.6) k/uL RBC (4.30-5.90) m/uL Hgb (13.0-17.5) gm/dL Hct (39.0-53.0) % Sodium (137-145) mmol/L Chloride (98-107) mmol/L Carbon Dioxide (22-30) mmol/L BUN (9-20) mg/dL Creatinine (0.66-1.25) mg/dL Glucose (74-99) mg/dL POC Glucose (mg/dL) 131 H 287 H 139 H (70-110) mg/dL Calcium (8.4-10.2) mg/dL 05/25/23 05/25/23 05/25/23 Range/Units 07:21 07:47 07:47 WBC 13.3 H (3.8-10.6) k/uL RBC 2.78 L (4.30-5.90) m/uL Hgb 8.9 L (13.0-17.5) gm/dL Hct 26.8 L (39.0-53.0) % Sodium 132 L (137-145) mmol/L Chloride 95 L (98-107) mmol/L Carbon Dioxide (22-30) mmol/L BUN 79 H (9-20) mg/dL Creatinine 6.73 H (0.66-1.25) mg/dL Glucose 136 H (74-99) mg/dL POC Glucose (mg/dL) 130 H (70-110) mg/dL Calcium 7.6 L (8.4-10.2) mg/dL Assessment and Plan Assessment: # 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 Left atrial appendage ligation -sternal precautions, no heavy lifting #AMS, thought to be metabolic encephalopathy -no seizure activity on EEG # Acute Leukocytosis -05/24/23 Patient with WBC 20, up from 13 k yesterday. Recommending work up, afebrile -05/25/23 patient's WBC improved to 13k # Acute on chronic kidney injury requiring Dialysis -05/24/23 Dialysis today, nephrology following, Cr 8.07 #Paroxysmal atrial fibrillation with RVR -cardio following # Ischemic cardiomyopathy with ejection fraction 40-45% # Diabetes mellitus with PPN # History of CVA -affected vision per records, patient declines deficits # History of PE -on eliquis # Bowel/ Bladder: Nursing to monitor and report concerns if any. -05/24/23 patient reports he is anuric # Diet- Carb consistent, heart healthy # Skin/wound: Skin/Wound care to follow as needed -sternal surgical sites # Pain Management-Tylenol prn # DVT Prophylaxis: Eliquis # Comorbidities:Hypertension, BPH, HLD, Previous COVID-19 infection, CAD # Your medical dx and mgt Goals: Modified Independent mobility and ADLS both basic and advanced; increased functional mobility/strength; increased balance, safety, endurance. Improvement in medical issues through your care. Barriers: endurance, cardiac precautions Discharge recommendation: Recommending IPR when patient is medically cleared from surgery/medical team. Will need insurance authorization. Patient is agreeable.
[2023-05-25] MEDS ORDERED: FUROSEMIDE 10 MG/ML 10 ML VIAL IV STA (11:18)
[2023-05-25 11:41] LABS: Glucose,Whole Blood 228 mg/dL (70-110)
--- NOTE | 2023-05-25 11:53 | P.PN ---
Subjective Progress Note Date: 05/25/23 The patient is seen today 05/19/2023 in follow-up in the intensive care unit. He is currently sitting up in bed. Awake, alert, confused, slow to respond. Weak. EEG reveals background slowing of mild to moderate degree suggestive of encephalopathy. Continues to maintain good O2 saturations in the 90s on 3 L/m per nasal cannula. Ultrasound of the chest revealed no significant fluid for thoracentesis. He is receiving hemodialysis today. Yesterday they removed 500 ML's and hoping for thousand today. He is on norepinephrine at 0.02 mcg/kg/m. 0.9 normal saline at 20 ML's per hour. Insulin drip currently on hold. He is on antibiotics in the form of vancomycin and cefepime. He remains on bro nchodilators. Working with the incentive spirometer. Continued on oral amiodarone. Anticoagulated with Eliquis. He is status post 2 units of packed red blood cells this admission. Current hemoglobin 7.7. Platelets 147. White count 8.4. Sodium 134. Potassium 3.9. Bicarb 34. BUN 36. Creatinine 5.26. Glucose 155. AST 257. ALT 43. The patient is seen today 05/20/2023 in follow-up in the intensive care unit. He is currently up in a chair at the bedside. Awake and alert in no acute d istress. He remains afebrile. He is down to 2 L nasal cannula and maintaining O2 saturations in the 90s. Currently in sinus rhythm. Chest x-ray showing some atelectasis of the right lower lobe. Encouraged increased use the incentive spirometer. Left pleural chest tube remains in place. He did receive hemodialysis yesterday with 2 L of fluid removed. His norepinephrine has been off since 6:30 this morning. He is continued on vancomycin and cefepime. Cultures are revealing no growth. He is status post 2 units of packed red blood cells this admission. Current hemoglobin 8.7. Platelets 151. White count 9.2. Sodium 134. Potassium 3.8. Bicarb 26. BUN 40. Creatinine 4.55. Glucose 203. AST 207. ALT 28. Cortisol 28. He remains on DuoNeb inhalations. The patient is seen today 05/21/2020 in the intensive care unit. Distress. Plan is for hemodialysis with a goal of 3 L to be removed today. He is also to have a permacath placed. He'll be on a Wednesday schedule for his dialysis treatments. Chest x-ray shows improving aeration of the right lower lobe. Left pleural chest tube has been removed. No evidence of pneumothorax. He is remaining in sinus rhythm. He is maintaining O2 saturations in the 90s on 2 L/m per nasal cannula. He's been afebrile. Hemodynamically stable. He is status post 2 units of packed red blood cells this admission. Current hemoglobin 8.8. Platelets 175. White count 9.2. Sodium 133. Potassium 3.7. Bicarb 26. BUN 61. Creatinine 5.94. Glucose 116. Urine, blood, sputum cultures all revealed no growth. He remains on bronchodilators. Continues to work with the incentive spirometer. The patient is seen today 05/22/2023 in follow-up in the intensive care unit. Currently sitting up in a chair at the bedside. Awake and alert in no acute distress. Maintaining good O2 saturations in the 90s on room air. No IV fluids. He did receive hemodialysis yesterday with 2.8 L of fluid removed. He did have a right internal jugular hemodialysis catheter placed yesterday. Right femoral catheter was removed. Chest x-ray reveals small right pleural effusion with associated atelectasis. He is continuing to work with his incentive spirometer. Urine, blood and sputum cultures all revealed no growth. He remains on DuoNeb inhalations. Anticoagulated with Eliquis. Progress note dated 05/23/2023. The patient is seen today in room 383. He was transferred out of the intensive care unit yesterday. The patient's on room air. He's not receiving any IV fluids. The plan is for Wednesday/Wednesday/Wednesday hemodialysis. The patient did not have dialysis yesterday today. He's feeling a bit stronger day by day. Sti ll has a long way to go. White count 13.7, hemoglobin 10, hematocrit 29.2, and platelet count is normal. Sodium 133, potassium 4, chlorides 97, CO2 23, BUN 74, creatinine 6.89. Chest x-ray shows an small right pleural effusion. On today's evaluation of 05/24/2023, the patient is on room air oxygen. The patient is not having any major respiratory difficulties. The patient is using the incentive spirometer. Hemodialysis is being performed to a permacath in his right IJ. Chest x-ray from this morning shows a small amount of fluid in the right lung. His urine output is minimal at this point in time. No significant urine output and the patient remains in renal failure. No chest pain. No shortness of breath. He is postop day #11 following two-vessel bypass surgery. He also has an acute kidney injury and currently is on hemodialysis. His cardiac rhythm is sinus. Blood work from today shows a white cell count 20 with a hemoglobin of 10.2. BUN is 103 with a creatinine of 8 and a sodium level is at 132. On 05/25/2023, the patient is feeling well. Yesterday, he felt quite weak and lethargic following his hemodialysis. This morning, he seems to be slightly more awake. Denies having any chest pain. Surgery wound is dry clean and intact. The white cell count was elevated yesterday up to 20 and dropped down to 13. Chest x-ray still showing bilateral pleural effusions and pulmonary vascular congestion. He is not having any major respiratory difficulties for now. The patient underwent hemodialysis yesterday with removal of 2.5 L of fluid and irises also plan for today. No new complaints otherwise for now. The hemoglobin is at 8.9, BUN is 79 with a creatinine of 6.7 and the patient is not producing any significant urine output. Sodium level is at 132. Objective - Vital Signs Vital signs: Vital Signs Temp 97.4 F L 05/25/23 08:00 Pulse 62 05/25/23 08:16 Resp 18 05/25/23 08:00 BP 121/72 05/25/23 08:00 Pulse Ox 96 05/25/23 08:05 FiO2 50 05/13/23 15:13 Intake & Output 05/24/23 05/25/23 05/25/23 18:59 06:59 18:59 Intake Total 900 118 Output Total 3000 15 Balance -2099 118 Weight 118 kg 113.1 kg Intake: Oral 400 118 Hemodialysis 500 Output: Urine 0 0 Stool 15 Hemodialysis 3000 Other: Voiding Method Urinal Urinal # Voids 0 # Bowel Movements 1 1 ABP, PAP, CO, CI - Last Documented Arterial Blood Pressure 116/42 Pulmonary Artery Pressure 29/9 Cardiac Output 4.5 Cardiac Index 2.2 - Exam CONSTITUTIONAL: Appears comfortable, cooperative, no acute distress RESPIRATORY: Lungs sounds diminished bilaterally, right greater than left. Respirations even, nonlabored. Currently on room air with oxygen saturation 95%. Able to achieve 1250 mL on incentive spirometry. Strong non-productive cough. CARDIOVASCULAR: S1, S2 present. Regular rate and rhythm, sinus rhythm on telemetry. Sternum stable. Palpable peripheral pulses bilaterally. Generalized edema present. No calf pain or tenderness noted. Heart hugger, antiembolism stockings, SCDs present. GASTROINTESTINAL: Abdomen soft, nontender, nondistended, obese. Active bowel sounds present 4 quadrants. Tolerating diet. Positive bowel movement 05/23 GENITOURINARY: No further urine output, bladder scan 100 mL INTEGUMENTARY: Skin is warm and dry. Anterior chest incision well approximated, dressing removed. Right lower extremity EVH site well approximated without redness or drainage. NEUROLOGIC: Cranial nerves II through XII intact MUSKULOSKELETAL: Able to move all extremities, strength equal bilaterally PSYCHIATRIC: Alert and oriented to person, place, year and situation INVASIVE LINES AND TUBES: Right chest PermCath present - Labs CBC & Chem 7: 05/25/23 07:47 05/25/23 07:47 Labs: Abnormal Lab Results - Last 24 Hours (Table) 05/24/23 05/24/23 05/24/23 Range/Units 11:06 11:06 11:19 WBC 20.1 H (3.8-10.6) k/uL RBC 3.20 L (4.30-5.90) m/uL Hgb 10.2 L (13.0-17.5) gm/dL Hct 31.0 L (39.0-53.0) % Sodium 132 L (137-145) mmol/L Chloride 94 L (98-107) mmol/L Carbon Dioxide 20 L (22-30) mmol/L BUN 103 H* (9-20) mg/dL Creatinine 8.07 H* (0.66-1.25) mg/dL Glucose 189 H (74-99) mg/dL POC Glucose (mg/dL) 205 H (70-110) mg/dL Calcium 7.9 L (8.4-10.2) mg/dL 05/24/23 05/24/23 05/25/23 Range/Units 16:17 20:06 06:12 WBC (3.8-10.6) k/uL RBC (4.30-5.90) m/uL Hgb (13.0-17.5) gm/dL Hct (39.0-53.0) % Sodium (137-145) mmol/L Chloride (98-107) mmol/L Carbon Dioxide (22-30) mmol/L BUN (9-20) mg/dL Creatinine (0.66-1.25) mg/dL Glucose (74-99) mg/dL POC Glucose (mg/dL) 131 H 287 H 139 H (70-110) mg/dL Calcium (8.4-10.2) mg/dL 05/25/23 05/25/23 05/25/23 Range/Units 07:21 07:47 07:47 WBC 13.3 H (3.8-10.6) k/uL RBC 2.78 L (4.30-5.90) m/uL Hgb 8.9 L (13.0-17.5) gm/dL Hct 26.8 L (39.0-53.0) % Sodium 132 L (137-145) mmol/L Chloride 95 L (98-107) mmol/L Carbon Dioxide (22-30) mmol/L BUN 79 H (9-20) mg/dL Creatinine 6.73 H (0.66-1.25) mg/dL Glucose 136 H (74-99) mg/dL POC Glucose (mg/dL) 130 H (70-110) mg/dL Calcium 7.6 L (8.4-10.2) mg/dL Assessment and Plan Plan: Coronary artery disease status post off-pump coronary artery bypass grafting 2 with a left internal thoracic artery to the left anterior descending artery, saphenous vein graft from the aorta to the posterior descending artery. Left atrial appendage ligation. Postoperative day #12 Acute kidney injury requiring hemodialysis. Initiated on a [id number] schedule. Another session of hemodialysis being done today, last hemodialysis session was yesterday with a total of 2.5 L of fluid was removed. Small leural effusion, post thoracotomy and cardiac surgery History of chronic kidney disease, stage IV. Febrile illness, cultures revealing no growth, completed vancomycin and cefepime. Ischemic cardiomyopathy with ejection fraction 40-45%. History of pulmonary embolism previously on Eliquis. Diabetes mellitus. Hypertension. CVA. BPH. Hyperlipidemia. Previous COVID-19 infection. Plan: Respiratory status is stable and the patient is currently on room air oxygen The patient continues to have some pleural effusion and pulmonary vascular congestion which improved with hemodialysis. Last hemodialysis session was yesterday with a total of 2.5 L of fluid was removed and the same is to be done today. Continue use of incentive spirometer Continue hemodialysis per nephrology Monitor the white cell count which is improved compared to yesterday Continue aspirin Continue amiodarone Continue Eliquis Continue metoprolol 12.5 mg by mouth twice a day Midodrine for hypotension Bicarb supplements We'll follow
--- NOTE | 2023-05-25 12:45 | P.PN ---
Subjective Patient is seen for follow-up for acute kidney injury status post coronary artery bypass surgery. Patient has underlying chronic kidney disease NKF stage IV with baseline creatinine around 1.4 to 2 mg/dL Patient was started on hemodialysis on 05/17/2023 for oliguric ATN postop. Urine output remains low. Patient is scheduled for hemodialysis today. Overall he states he is feeling stronger. No significant complaints today. Awaiting outpatient chair time Objective - Vital Signs Vital signs: Vital Signs Temp 97.6 F 05/25/23 12:00 Pulse 66 05/25/23 12:00 Resp 16 05/25/23 12:00 BP 126/72 05/25/23 12:00 Pulse Ox 95 05/25/23 12:00 FiO2 50 05/13/23 15:13 Intake & Output 05/24/23 05/25/23 05/25/23 18:59 06:59 18:59 Intake Total 900 118 Output Total 3000 15 Balance -2100 -15 118 Weight 118 kg 113.1 kg Intake: Oral 400 118 Hemodialysis 500 Output: Urine 0 0 Stool 15 Hemodialysis 3000 Other: Voiding Method Urinal Urinal # Voids 0 # Bowel Movements 1 1 ABP, PAP, CO, CI - Last Documented Arterial Blood Pressure 116/42 Pulmonary Artery Pressure 29/9 Cardiac Output 4.5 Cardiac Index 2.2 - Exam Awake, comfortable, in no acute distress Examination of the heart S1 and S2 Examination lungs bilateral breath sounds are heard, decreased breath sounds at the bases Examination lower extremity shows 2+ edema in bilateral lower extremities and upper extremities [employer]EL [employer] O[employer]ATOR exam grossly intact - Labs CBC & Chem 7: 05/25/23 07:47 05/25/23 07:47 Labs: Abnormal Lab Results - Last 24 Hours (Table) 05/24/23 05/24/23 05/25/23 Range/Units 16:17 20:06 06:12 WBC (3.8-10.6) k/uL RBC (4.30-5.90) m/uL Hgb (13.0-17.5) gm/dL Hct (39.0-53.0) % Sodium (137-145) mmol/L Chloride (98-107) mmol/L BUN (9-20) mg/dL Creatinine (0.66-1.25) mg/dL Glucose (74-99) mg/dL POC Glucose (mg/dL) 131 H 287 H 139 H (70-110) mg/dL Calcium (8.4-10.2) mg/dL 05/25/23 05/25/23 05/25/23 Range/Units 07:21 07:47 07:47 WBC 13.3 H (3.8-10.6) k/uL RBC 2.78 L (4.30-5.90) m/uL Hgb 8.9 L (13.0-17.5) gm/dL Hct 26.8 L (39.0-53.0) % Sodium 132 L (137-145) mmol/L Chloride 95 L (98-107) mmol/L BUN 79 H (9-20) mg/dL Creatinine 6.73 H (0.66-1.25) mg/dL Glucose 136 H (74-99) mg/dL POC Glucose (mg/dL) 130 H (70-110) mg/dL Calcium 7.6 L (8.4-10.2) mg/dL 05/25/23 Range/Units 11:39 WBC (3.8-10.6) k/uL RBC (4.30-5.90) m/uL Hgb (13.0-17.5) gm/dL Hct (39.0-53.0) % Sodium (137-145) mmol/L Chloride (98-107) mmol/L BUN (9-20) mg/dL Creatinine (0.66-1.25) mg/dL Glucose (74-99) mg/dL POC Glucose (mg/dL) 228 H (70-110) mg/dL Calcium (8.4-10.2) mg/dL Assessment and Plan Assessment: 1. Acute kidney injury, oliguric ATN postoperatively. Started on hemodialysis on 05/17/2023. Patient remains oliguric and is currently awaiting outpatient chair time for outpatient dialysis. 2. Status post coronary artery bypass surgery on 05/13/2023 3. Coronary artery disease with ejection fraction 40-45%. 4. History of PE maintained on eliquis prior to admission 5. Chronic kidney disease NKF stage IV with baseline creatinine around 2 mg/dL since September 2022. Etiology is likely diabetic kidney disease. UA shows 2+ protein 6. Volume overload Plan: Hemodialysis today. Try Lasix 80 mg IV 1 Continue with oral sodium bicarb
--- NOTE | 2023-05-25 14:03 | CDI ---
Documentation Clarification Form Date: 05/25/2023 02:01:10 PM From: Zulema Pop RN, CCDS Email: [email or web address] Admit Date: 05/13/2023 05:36:00 AM Patient Name: Kimo Birmingham Visit Number: [id number] Discharge Date: ATTENTION: The Clinical Documentation Specialists (CDI) and [facility] Coding Staff appreciate your assistance in clarifying documentation. Please respond to the clarification below the line at the bottom and electronically sign. The CDI & [facility] Coding staff will review the response and follow-up if needed. Please note: Queries are made part of the Legal Health Record. If you have any questions, please contact the author of this message via ITS. Dr. Jaime Noland Patient was hypotensive and obtunded starting 05/17. Additional clarification is requested. Patient history/risk factors: s/p elective CABG, ischemic cardiomyopathy, HTN, DM, BPH, CVA Clinical Indicators: 05/14 CTS: "The patient did have some hypotension yesterday requiring norepinephrine drip." 05/15 CTS: "Postoperative hypotension, unexpected, resolved." 05/17 Attending: "Intra and postoperative hypotension, unexpected." 05/18 Nephrology consult: Patient very confused. Unresponsive. Hypotensive with blood pressure running around 80/40. Very obtunded and confused." 05/14-05/18 BP range 74/42-171/54 Treatment: IV Levophed titrated 05/13-05/14 and 05/18-05/20. Midodrine 5-10mg po TID 05/15-05/24. IV 0.9NS bolus 500ml on 05/14 Please clarify if there is an additional diagnosis: [ ] Hypovolemic Shock [ x ] Other, please specify post-op vasoplegia_ [ ] Unable to determine MTDD
--- NOTE | 2023-05-25 14:31 | CDI ---
Documentation Clarification Form Date: 05/25/2023 02:05:02 PM From: Zulema Pop RN, CCDS Email: [email or web address] Admit Date: 05/13/2023 05:36:00 AM Patient Name: Kimo Birmingham Visit Number: [id number] Discharge Date: ATTENTION: The Clinical Documentation Specialists (CDI) and [facility] Coding Staff appreciate your assistance in clarifying documentation. Please respond to the clarification below the line at the bottom and electronically sign. The CDI & [facility] Coding staff will review the response and follow-up if needed. Please note: Queries are made part of the Legal Health Record. If you have any questions, please contact the author of this message via ITS. Dr. Jaime Noland Postoperative hypotension unexpected is documented in the progress notes starting 05/15 and patient had a CABG on 05/13. Additional clarification is requested regarding the relationship, if any, that exists between the diagnosis and the procedure. Patients Admitting Diagnosis: 2 vessel CAD Post-Operative Diagnosis: same Procedure performed: off pump CABG x2 Patient history/risk factors: s/p elective CABG, ischemic cardiomyopathy, HTN, DM, BPH, CVA Clinical Indicators: 05/14 CTS: "The patient did have some hypotension yesterday requiring norepinephrine drip." 05/15 CTS: "Postoperative hypotension, unexpected, resolved." 05/17 Attending: "Intra and postoperative hypotension, unexpected." 05/18 Nephrology consult: Patient very confused. Unresponsive. Hypotensive with blood pressure running around 80/40. Very obtunded and confused." 05/14-05/18 BP range 74/42-171/54 Treatment: IV Levophed titrated 05/13-05/14 and 05/18-05/20. Midodrine 5-10mg po TID 05/15-05/24. IV 0.9NS bolus 500ml on 05/14 What relationship, if any, exists between the diagnosis of postoperative hypotension and the procedure: [ x ] Postoperative hypotension unexpected is a complication of the surgical procedure [ ] Postoperative hypotension unexpected is related to patients co-morbid conditions & not a complication of the procedure [ ] Other please specify ____ [ ] Unable to determine MTDD
[2023-05-25 16:33] LABS: Glucose,Whole Blood 130 mg/dL (70-110)
[2023-05-25] MEDS: ACETAMINOPHEN TAB 500 MG TAB PO PRN (18:55)
[2023-05-25 20:02] LABS: Glucose,Whole Blood 159 mg/dL (70-110)
[2023-05-26 06:45] LABS: Glucose,Whole Blood 133 mg/dL (70-110)
[2023-05-26] MEDS: INSULIN ASPART (NovoLOG) 100 UNIT/ML VIAL SQ SCH ×7 (06:56→20:21)
[2023-05-26] MEDS: INSULIN DETEMIR (LEVEMIR) 100 UNIT/ML SYR SQ SCH ×2 (06:58→20:20)
--- NOTE | 2023-05-26 06:58 | XR ---
EXAMINATION TYPE: XR chest 2V DATE OF EXAM: 05/26/2023 6:27 AM COMPARISON: Chest radiographs from 05/25/2023 TECHNIQUE: XR chest 2V Frontal and lateral views of the chest. CLINICAL INDICATION:Male, 68 years old with history of post cardiac surgery; FINDINGS: Lungs/Pleura: There are small left and small to moderate right pleural effusions. Pulmonary vascularity: Unremarkable. Heart/mediastinum: Cardiomediastinal silhouette is enlarged and stable. Left atrial appendage occlusi on devices present. Musculoskeletal: No acute osseous pathology. Midline sternotomy wires are noted and stable. Degenerat maxi changes of the thoracic spine. Other findings: None Lines/Tubes: Dual-lumen right IJ catheter with distal tip at the superior cavoatrial junction. IMPRESSION: Post cardiac surgery with similar small left and small to moderate right pleural effusions with assoc iated atelectasis.
[2023-05-26] MEDS: PANTOPRAZOLE 40 MG TABLET PO SCH (07:01)
--- NOTE | 2023-05-26 07:20 | P.PN ---
Subjective Progress Note Date: 05/26/23 Principal diagnosis: Two-vessel coronary artery disease. Previous medical history of nonischemic cardiomyopathy with EF 25-30% with improvement EF of 45-50% with intense medical therapy, chronic LV thrombus, pulmonary embolus on eliquis outpatient, hypertension, hyperlipidemia, diabetes mellitus, CVA with residual right-sided weakness, COVID-19 infection in early 2021, chronic kidney disease stage IV with baseline creatinine of 2.0, and BPH status post TURP POD #13 Off pump coronary artery bypass grafting x 2. Left internal thoracic artery (in-situ) to left anterior descending artery, saphenous vein from aorta to posterior descending artery, endoscopic right greater saphenous vein harvest, left atrial appendage ligation using 35mm AtriClip, graft flow measurements usi ng the [employer] flow meter system, and intraoperative transesophageal echocardiogram performed by anesthesia. Postoperative acute blood loss anemia and thrombocytopenia, expected given hemodilution Intra and postoperative hypotension, unexpected, vasoplegia Acute kidney injury, likely secondary to hypoperfusion, status post temporary hemodialysis catheter, status post permacath with removal of right groin hemodialysis catheter Paroxysmal atrial fibrillation, known common occurrence after cardiac surgery, currently in normal sinus rhythm Mental status change, unsure of eitiology, likely metabolic encephalopathy vs new stroke, resolved Leukocytosis, unknown origin, remains afebrile, all cultures negative Medical debility The patient was seen and examined sitting up in a recliner on the cardiac stepdown unit in no acute distress eating breakfast. He denies any pain or shortness of breath currently. Currently sinus rhythm, blood pressure stable. Remains on room air and able to achieve 5653-3990 mL on incentive spirometry. Hemodialysis was completed again yesterday with removal of 2.5 L. Was given dose of IV lasix yesterday per nephrology without any urine output, bladder scan revealed no residual. Strength equal bilaterally, patient has ambulated short distances into the hallway with assistance, showering daily. Seen by [facility] group, will accept at [facility] hopefully tomorrow, insurance auth started. Chest x-ray reviewed, labs pending. Left message for yesterday, updated daughter She via phone. No other new concerns. Objective - Vital Signs Vital signs: Vital Signs Temp 98.1 F 05/26/23 04:00 Pulse 80 05/26/23 04:00 Resp 18 05/26/23 04:00 BP 131/77 05/26/23 04:00 Pulse Ox 92 L 05/26/23 04:00 FiO2 50 05/13/23 15:13 Intake & Output 05/25/23 05/26/23 05/26/23 18:59 06:59 18:59 Intake Total 908 Output Total 2800 0 Balance -1892 0 Weight 111.7 kg Intake: IV 10 Invasive Line 5 10 Oral 598 Hemodialysis 300 Output: Post Void Residual 0 Hemodialysis 2800 Other: Voiding Method Urinal Urinal # Voids 0 # Bowel Movements 1 ABP, PAP, CO, CI - Last Documented Arterial Blood Pressure 116/42 Pulmonary Artery Pressure 29/9 Cardiac Output 4.5 Cardiac Index 2.2 - Exam CONSTITUTIONAL: Appears comfortable, cooperative, no acute distress RESPIRATORY: Lungs sounds diminished bilaterally, right greater than left. Respirations even, nonlabored. Currently on room air with oxygen saturation 94%. Able to achieve 7737-7778 mL on incentive spirometry. Strong non- productive cough. CARDIOVASCULAR: S1, S2 present. Regular rate and rhythm, sinus rhythm on telemetry. Sternum stable. Palpable peripheral pulses bilaterally. Generalized edema present. No calf pain or tenderness noted. Heart hugger, antiembolism stockings, SCDs present. GASTROINTESTINAL: Abdomen soft, nontender, nondistended, obese. Active bowel sounds present 4 quadrants. Tolerating diet. Positive bowel movement 05/25 GENITOURINARY: No further urine output, receiving HD INTEGUMENTARY: Skin is warm and dry. Anterior chest incision well approximated. Right lower extremity EVH site well approximated without redness or drainage. NEUROLOGIC: Cranial nerves II through XII intact MUSKULOSKELETAL: Able to move all extremities, strength equal bilaterally PSYCHIATRIC: Alert and oriented to person, place, year and situation INVASIVE LINES AND TUBES: Right chest PermCath present - Allied health notes Allied health notes reviewed: nursing - Labs CBC & Chem 7: 05/25/23 07:47 05/25/23 07:47 Labs: Abnormal Lab Results - Last 24 Hours (Table) 05/25/23 05/25/23 05/25/23 Range/Units 07:21 07:47 07:47 WBC 13.3 H (3.8-10.6) k/uL RBC 2.78 L (4.30-5.90) m/uL Hgb 8.9 L (13.0-17.5) gm/dL Hct 26.8 L (39.0-53.0) % Sodium 132 L (137-145) mmol/L Chloride 95 L (98-107) mmol/L BUN 79 H (9-20) mg/dL Creatinine 6.73 H (0.66-1.25) mg/dL Glucose 136 H (74-99) mg/dL POC Glucose (mg/dL) 130 H (70-110) mg/dL Calcium 7.6 L (8.4-10.2) mg/dL 05/25/23 05/25/23 05/25/23 Range/Units 11:39 16:30 20:01 WBC (3.8-10.6) k/uL RBC (4.30-5.90) m/uL Hgb (13.0-17.5) gm/dL Hct (39.0-53.0) % Sodium (137-145) mmol/L Chloride (98-107) mmol/L BUN (9-20) mg/dL Creatinine (0.66-1.25) mg/dL Glucose (74-99) mg/dL POC Glucose (mg/dL) 228 H 130 H 159 H (70-110) mg/dL Calcium (8.4-10.2) mg/dL 05/26/23 Range/Units 06:43 WBC (3.8-10.6) k/uL RBC (4.30-5.90) m/uL Hgb (13.0-17.5) gm/dL Hct (39.0-53.0) % Sodium (137-145) mmol/L Chloride (98-107) mmol/L BUN (9-20) mg/dL Creatinine (0.66-1.25) mg/dL Glucose (74-99) mg/dL POC Glucose (mg/dL) 133 H (70-110) mg/dL Calcium (8.4-10.2) mg/dL - Imaging and Cardiology Chest x-ray: report reviewed, image reviewed Assessment and Plan Assessment: Two-vessel coronary artery disease, status post off-pump 2 vessel CABG History of nonischemic cardiomyopathy with EF 25-30% with improvement EF of 45- 50% with intense medical therapy, on Entresto outpatient Chronic LV thrombus Pulmonary embolus on eliquis outpatient History of hypertension Hyperlipidemia, treated, cholesterol 108, LDL 44 Diabetes mellitus, hemoglobin A1c 7.4% CVA with residual right-sided weakness COVID-19 infection in early 2021 Chronic kidney disease stage IV with baseline creatinine of 2.0 BPH status post TURP Postoperative acute blood loss anemia and thrombocytopenia, expected Intra and postoperative hypotension, unexpected, vasoplegia Acute kidney injury, likely secondary to hypoperfusion, status post temporary hemodialysis catheter, status post permacath placement, starting to make urine Paroxysmal atrial fibrillation, status post ligation of left atrial appendage, currently in sinus rhythm Mental status change, unsure of eitiology, likely metabolic encephalopathy vs new stroke, resolved Leukocytosis, unclear eitiology, afebrile, cultures negative Medical debility Plan: Continue to maximize medical therapy with low dose aspirin, statin, beta keara therapy Continue amiodarone for afib prophylaxis, continue Eliquis Encourage incentive spirometry use 10 times every hour while awake. Bronchodilators per pulmonology. Will monitor daily labs and chest x-rays. Electrolyte replacement per nephrology. Avoid nephrotoxic agents GI/DVT prophylaxis. Increase activity as tolerated. PT/OT/cardiac rehab following Pain control with current medication regimen. No Toradol due to kidney disease. Insulin management per internal medicine service, patient's preoperative hemoglobin A1c was 7.4%, needs tight blood sugar control. No metformin due to ANURADHA Strict accurate intake and output Daily weights Dialysis per nephrology Patient to shower daily Discharge planning in progress, will discharge to [facility] hopefully tomorrow, insurance auth started yesterday Will continue to update family daily More recommendations to follow
--- NOTE | 2023-05-26 07:21 | P.PN ---
Subjective Progress Note Date: 05/25/23 Subjective: Patient reports feeling tired. Slow improvement as compared to yesterday. No acute overnight events LABS: Hemoglobin 9.4, creatinine 5.1 BP 134/65, heart rate 63 05/24 Patient is postop day #11 for coronary artery bypass grafting 2 and seen today on the cardiac stepdown unit. Telemetry is a sinus rhythm. Heart rate is in the 60s, blood pressure 112/55, pulse ox 95% on room air. Patient is followed by nephrology for acute kidney injury on dialysis that started 05/17. Patient states he is feeling a bit better. He continues to have significant weakness, he states he is only able to stand and walk with assistance. He is concerned about his discharge plan. 05/25 The patient states that he is feeling a little bit stronger slowly improving. He is scheduled for hemodialysis today. Heart rate has been in the 60s, blood pressure 121/72, pulse ox 94% on room air. Repeat blood work reveals potassium 3.9, BUN 79 creatinine 6.73. Hemoglobin 8.9. Chest x-ray correlate for heart failure. Findings stable. PHYSICAL EXAMINATION Vital signs reviewed. CONSTITUTIONAL: No apparent distress. HEENT: Head is normocephalic. Pupils are equal, round. Sclerae anicteric. Mucous membranes of the mouth are moist. No JVD. No carotid bruit. CHEST EXAMINATION: Lungs are clear to auscultation. No chest wall tenderness is noted on palpation or with deep breathing. HEART EXAMINATION: Regular rate and rhythm. S1, S2 heard. No murmurs, gallops or rub. ABDOMEN: Soft, nontender. Positive bowel sounds. EXTREMITIES: 2+ peripheral pulses, 2+ lower extremity edema and no calf tenderness. NEUROLOGIC EXAMINATION: Patient is awake, alert and oriented x3. ASSESSMENT: 1. CAD with DRIER UNLOADER LAD, DRIER UNLOADER RCA status post ARAUZ to LAD and SVG to PDA 05/13 2. Ischemic cardiomyopathy EF previously 25-30% improved to 45-50% 3. Chronic systolic heart failure 4. Diabetes mellitus type 2 5. Hypertension 6. Chronic kidney disease stage IV 7. Previous history of stroke 8. Previous history of LV thrombus 9. Postoperative episode of atrial fibrillation, paroxysmal PLAN: Continue current medications include aspirin, Eliquis 2.5 mg. Metoprolol 12.5 mg. Continue oral she was amiodarone 200 mg. [place] Entresto and Aldactone due to ANURADHA. Continue supportive care. Nurse practitioner note has been reviewed, I agree with the documented findings and plan of care. Patient was seen and examined. Objective - Vital Signs Vital signs: Vital Signs Temp 97.4 F L 05/25/23 08:00 Pulse 62 05/25/23 08:16 Resp 18 05/25/23 08:00 BP 121/72 05/25/23 08:00 Pulse Ox 96 05/25/23 08:05 FiO2 50 05/13/23 15:13 Intake & Output 05/24/23 05/25/23 05/25/23 18:59 06:59 18:59 Intake Total 900 118 Output Total 3000 15 Balance -2100 -15 118 Weight 118 kg 113.1 kg Intake: Oral 400 118 Hemodialysis 500 Output: Urine 0 0 Stool 15 Hemodialysis 3000 Other: Voiding Method Urinal Urinal # Voids 0 # Bowel Movements 1 1 ABP, PAP, CO, CI - Last Documented Arterial Blood Pressure 116/42 Pulmonary Artery Pressure 29/9 Cardiac Output 4.5 Cardiac Index 2.2 - Labs CBC & Chem 7: 05/25/23 07:47 05/25/23 07:47 Labs: Abnormal Lab Results - Last 24 Hours (Table) 05/24/23 05/24/23 05/24/23 Range/Units 11:06 11:06 11:19 WBC 20.1 H (3.8-10.6) k/uL RBC 3.20 L (4.30-5.90) m/uL Hgb 10.2 L (13.0-17.5) gm/dL Hct 31.0 L (39.0-53.0) % Sodium 132 L (137-145) mmol/L Chloride 94 L (98-107) mmol/L Carbon Dioxide 20 L (22-30) mmol/L BUN 103 H* (9-20) mg/dL Creatinine 8.07 H* (0.66-1.25) mg/dL Glucose 189 H (74-99) mg/dL POC Glucose (mg/dL) 205 H (70-110) mg/dL Calcium 7.9 L (8.4-10.2) mg/dL 05/24/23 05/24/23 05/25/23 Range/Units 16:17 20:06 06:12 WBC (3.8-10.6) k/uL RBC (4.30-5.90) m/uL Hgb (13.0-17.5) gm/dL Hct (39.0-53.0) % Sodium (137-145) mmol/L Chloride (98-107) mmol/L Carbon Dioxide (22-30) mmol/L BUN (9-20) mg/dL Creatinine (0.66-1.25) mg/dL Glucose (74-99) mg/dL POC Glucose (mg/dL) 131 H 287 H 139 H (70-110) mg/dL Calcium (8.4-10.2) mg/dL 05/25/23 05/25/23 05/25/23 Range/Units 07:21 07:47 07:47 WBC 13.3 H (3.8-10.6) k/uL RBC 2.78 L (4.30-5.90) m/uL Hgb 8.9 L (13.0-17.5) gm/dL Hct 26.8 L (39.0-53.0) % Sodium 132 L (137-145) mmol/L Chloride 95 L (98-107) mmol/L Carbon Dioxide (22-30) mmol/L BUN 79 H (9-20) mg/dL Creatinine 6.73 H (0.66-1.25) mg/dL Glucose 136 H (74-99) mg/dL POC Glucose (mg/dL) 130 H (70-110) mg/dL Calcium 7.6 L (8.4-10.2) mg/dL
[2023-05-26 07:49] LABS: HCT 28.3 % (39.0-53.0); HGB 9.3 gm/dL (13.0-17.5); MCH 31.6 pg (25.0-35.0); MCHC 32.8 g/dL (31.0-37.0); MCV 96.3 fL (80.0-100.0); Mean Platelet Volume 7.8; Platelet Count 206 k/uL (150-450); RBC 2.94 m/uL (4.30-5.90); RDW 14.7 % (11.5-15.5); WBC 11.1 k/uL (3.8-10.6)
[2023-05-26 08:13] LABS: African American GFR (CKD) 10 (>60 ml/min/1.73 sqM); Anion Gap 13 mmol/L; Blood Urea Nitrogen 61 mg/dL (9-20); Calcium 7.8 mg/dL (8.4-10.2); Carbon Dioxide 25 mmol/L (22-30); Chloride 96 mmol/L (98-107); Glucose 127 mg/dL (74-99); Non-African American GFR(CKD) 9 (>60 ml/min/1.73 sqM); Sodium 134 mmol/L (137-145)
[2023-05-26] MEDS: APIXABAN 2.5 MG TABLET PO SCH ×2 (08:15→20:20)
[2023-05-26] MEDS: METOPROLOL TARTRATE 12.5 MG TAB PO SCH (08:15)
[2023-05-26] MEDS: ASPIRIN 81 MG PO SCH (08:15)
[2023-05-26] MEDS: SODIUM BICARBONATE TAB 650 MG TAB PO SCH (08:15)
[2023-05-26] MEDS: AMIODARONE 200 MG TAB PO SCH (08:15)
[2023-05-26] MEDS: FOLIC ACID 1 MG TAB PO SCH (08:15)
[2023-05-26] MEDS: IPRATROPIUM-ALBUTEROL 3 ML NEB INHALATION SCH ×4 (08:16→21:09)
--- NOTE | 2023-05-26 11:13 | P.PN ---
Subjective Progress Note Date: 05/26/23 Subjective: Patient reports feeling tired. Slow improvement as compared to yesterday. No acute overnight events LABS: Hemoglobin 9.4, creatinine 5.1 BP 134/65, heart rate 63 05/24 Patient is postop day #11 for coronary artery bypass grafting 2 and seen today on the cardiac stepdown unit. Telemetry is a sinus rhythm. Heart rate is in the 60s, blood pressure 112/55, pulse ox 95% on room air. Patient is followed by nephrology for acute kidney injury on dialysis that started 05/17. Patient states he is feeling a bit better. He continues to have significant weakness, he states he is only able to stand and walk with assistance. He is concerned about his discharge plan. 05/25 The patient states that he is feeling a little bit stronger slowly improving. He is scheduled for hemodialysis today. Heart rate has been in the 60s, blood pressure 121/72, pulse ox 94% on room air. Repeat blood work reveals potassium 3.9, BUN 79 creatinine 6.73. Hemoglobin 8.9. Chest x-ray correlate for heart failure. Findings stable. 05/26 Patient denies having any chest pain, no shortness of breath. He continues to have weakness and fatigue. Heart rate is in the 60s, blood pressure 1/55, pulse ox 91-95% on room air. He is on dialysis schedule Wednesday. Patient is scheduled for transfer to [facility] for inpatient rehab tomorrow. PHYSICAL EXAMINATION Vital signs reviewed. CONSTITUTIONAL: No apparent distress. HEENT: Head is normocephalic. Pupils are equal, round. Sclerae anicteric. Mucous membranes of the mouth are moist. No JVD. No carotid bruit. CHEST EXAMINATION: Lungs are clear to auscultation. No chest wall tenderness is noted on palpation or with deep breathing. HEART EXAMINATION: Regular rate and rhythm. S1, S2 heard. No murmurs, gallops or rub. ABDOMEN: Soft, nontender. Positive bowel sounds. EXTREMITIES: 2+ peripheral pulses, 2+ lower extremity edema and no calf tenderness. NEUROLOGIC EXAMINATION: Patient is awake, alert and oriented x3. ASSESSMENT: 1. CAD with HARVESTER OPERATOR LAD, HARVESTER OPERATOR RCA status post ARAUZ to LAD and SVG to PDA 05/13 2. Ischemic cardiomyopathy EF previously 25-30% improved to 45-50% 3. Chronic systolic heart failure 4. Diabetes mellitus type 2 5. Hypertension 6. Chronic kidney disease stage IV 7. Previous history of stroke 8. Previous history of LV thrombus 9. Postoperative episode of atrial fibrillation, paroxysmal PLAN: Continue current medications include aspirin, Eliquis 2.5 mg. Metoprolol 12.5 mg. Continue oral she was amiodarone 200 mg. [place] Entresto and Aldactone due to ANURADHA. Continue supportive care. Discharge planning Nurse practitioner note has been reviewed, I agree with the documented findings and plan of care. Patient was seen and examined. Objective - Vital Signs Vital signs: Vital Signs Temp 97.9 F 05/26/23 08:19 Pulse 60 05/26/23 08:34 Resp 18 05/26/23 08:19 BP 121/55 05/26/23 08:19 Pulse Ox 95 05/26/23 08:21 FiO2 50 05/13/23 15:13 Intake & Output 05/25/23 05/26/23 05/26/23 18:59 06:59 18:59 Intake Total 908 180 Output Total 2800 0 Balance -1892 0 180 Weight 111.7 kg Intake: IV 10 Invasive Line 5 10 Oral 598 180 Hemodialysis 300 Output: Post Void Residual 0 Hemodialysis 2800 Other: Voiding Method Urinal Urinal Urinal # Voids 0 # Bowel Movements 1 ABP, PAP, CO, CI - Last Documented Arterial Blood Pressure 116/42 Pulmonary Artery Pressure 29/9 Cardiac Output 4.5 Cardiac Index 2.2 - Labs CBC & Chem 7: 05/26/23 07:18 05/26/23 07:18 Labs: Abnormal Lab Results - Last 24 Hours (Table) 05/25/23 05/25/23 05/25/23 Range/Units 11:39 16:30 20:01 WBC (3.8-10.6) k/uL RBC (4.30-5.90) m/uL Hgb (13.0-17.5) gm/dL Hct (39.0-53.0) % Sodium (137-145) mmol/L Chloride (98-107) mmol/L BUN (9-20) mg/dL Creatinine (0.66-1.25) mg/dL Glucose (74-99) mg/dL POC Glucose (mg/dL) 228 H 130 H 159 H (70-110) mg/dL Calcium (8.4-10.2) mg/dL 05/26/23 05/26/23 05/26/23 Range/Units 06:43 07:18 07:18 WBC 11.1 H (3.8-10.6) k/uL RBC 2.94 L (4.30-5.90) m/uL Hgb 9.3 L (13.0-17.5) gm/dL Hct 28.3 L (39.0-53.0) % Sodium 134 L (137-145) mmol/L Chloride 96 L (98-107) mmol/L BUN 61 H (9-20) mg/dL Creatinine 5.91 H (0.66-1.25) mg/dL Glucose 127 H (74-99) mg/dL POC Glucose (mg/dL) 133 H (70-110) mg/dL Calcium 7.8 L (8.4-10.2) mg/dL
--- NOTE | 2023-05-26 11:34 | P.PN ---
Subjective Pleasant 68 years old male with past medical history of Diabetes Mellitus, Hypertension, hyperlipidemia, benign prostatic hypertrophy, pulmonary embolism on blood thinner He was admitted for coronary artery disease affecting mainly to vessels and underwent coronary artery bypass surgery yesterday and he was on mechanical ventilation for a short lived time, eventually he got extubated. Comfortable in bed with no chest pain or dyspnea. Hemodynamically stable. Patient has mild worsening of creatinine 2.8, 1.3 yesterday 05/15/2023 Fascia temo bed comfortably with no complaints. Blood pressure still borderline. We will see improvement on 15. Creatinine up to 4.0. Nephrology was consulted. Patient is status post bolus of 500 mL of normal saline. His urine analysis is abnormal. Urine culture is negative. Bladder scan is negative. We don't a repeat urine culture Patient remains on aspirin Plavix and midodrine by surgery team 05/16/23 pt is awake alert with no dyspnea, no chest pain ,he denies any specific complaints but his renal function keep worsening and today his creatinine went up to 5.4, he was lasix drip at 20 mg per hour, pt is mostly will need hemodialysis per nephrology team pt is on dobutamine with poor urine output. pt has mild leukocytosis sugar is more 300 so increased levemir to 5 u bid and novolog 5 u tid ac pt is on bicarb drip as well kept on asprin and plavix , and midodrine 05/17/2023 Patient remains in ICU closely monitored case/critical care team, the primary cardiothoracic surgery team and production support engineer as well as nurses assistant. He is status post bypass surgery and today is postoperative day #4. Creatinine is elevated up to 7.3 today. He is getting treatment for hemodialysis started here in the ICU from. His Lasix drip and backup as well He remains on dopamine drip Blood pressure is borderline with systolic blood pressure is stable around 90s to 100. Hemoglobin 7.7, WBC within the reference range today 9000. Glucose was elevated more than 300 despite doubling the dose of Levemir last night to 5 mg twice a day. Therefore he was started on insulin drip This was discussed with patient in the thoracic primary team 05/18/2023 Patient is very lethargic and tired looking today. Open eyes to verbal stimuli and answer questions. He follows commands. Because of his change mentation neurologist has been consulted from a most likely patient will require MRI of the brain and EEG to rule out intracranial lesions or seizure activities. Blood pressure was controlled Labs reviewed Patient remains on insulin drip, dopamine drip and IV vancomycin 05/19/2023 Patient in the ICU, severely weak and lethargic and somewhat drowsy. He's undergoing hemodialysis and creatinine is elevated. Vitals are the same. Hemoglobin 7.7. He is on aspirin 81 mg Plavix and Protonix. I going to stop the insulin drip and start Levemir insulin and go up gradually with insulin sliding scale 05/24/2023 Patient was seen appropriate 3, is lying in the recliner comfortable, relaxed a pleasant. He denies any specific complaints. No chest pain dyspnea or other new complaint. He is hemodynamically stable. Stable and improving except for leukocytosis to 20,000. Patient currently sugar is controlled around 200 with Levemir 10 units twice a day. Metformin admission was because of persistent infection. B12 1355 which is elevated patient may benefit from rehab upon discharge 05/25/2023 Patient awake and alert, no chest pain, no dyspnea gets a breathing treatment. No new complaints. Vitals are stable. Hemoglobin 8.9, WBC 13,000, creatinine 6.5. Glucose control. Chest x-ray showing CHF but stable Patient remains on Eliquis and baby aspirin. Also he is on IV Lasix 40 mg twice daily. 05/26/2023 Patient lying in his chair comfortable denies any chest pain or dyspnea. He denies any other new complaint He is hemodynamically stable Labs are reviewed and his hemoglobin 9.3, WBC 11.1. Creatinine 5.9, sugar controlled. Chest x-ray showed bilateral pleural effusion and atelectasis, small Patient remains on eliquis 2.5 mg, IV Lasix 40 mg twice daily and aspirin 81 mg Objective - Vital Signs Vital signs: Vital Signs Temp 97.9 F 05/26/23 08:19 Pulse 60 05/26/23 08:34 Resp 18 05/26/23 08:19 BP 121/55 05/26/23 08:19 Pulse Ox 95 05/26/23 08:21 FiO2 50 05/13/23 15:13 Intake & Output 05/25/23 05/26/23 05/26/23 18:59 06:59 18:59 Intake Total 908 180 Output Total 2800 0 Balance -1892 0 180 Weight 111.7 kg Intake: IV 10 Invasive Line 5 10 Oral 598 180 Hemodialysis 300 Output: Post Void Residual 0 Hemodialysis 2800 Other: Voiding Method Urinal Urinal Urinal # Voids 0 # Bowel Movements 1 ABP, PAP, CO, CI - Last Documented Arterial Blood Pressure 116/42 Pulmonary Artery Pressure 29/9 Cardiac Output 4.5 Cardiac Index 2.2 - Exam GENERAL: The patient is alert and oriented x3, not in any acute distress. Well developed, well nourished. HEENT: Pupils are round and equally reacting to light. EOMI. No scleral icterus. No conjunctival pallor. Normocephalic, atraumatic. No pharyngeal erythema. No thyromegaly. CARDIOVASCULAR: S1 and S2 present. No murmurs, rubs, or gallops. PULMONARY: Chest is clear to auscultation, no wheezing , no crackles. ABDOMEN: Soft, nontender, nondistended, normoactive bowel sounds. No palpable organomegaly. MUSCULOSKELETAL: No joint swelling or deformity. EXTREMITIES: No cyanosis, clubbing, or pedal edema. NEUROLOGICAL: Gross neurological examination did not reveal any focal deficits. SKIN: No rashes. no petechiae. - Labs CBC & Chem 7: 05/26/23 07:18 05/26/23 07:18 Labs: Abnormal Lab Results - Last 24 Hours (Table) 05/25/23 05/25/23 05/25/23 Range/Units 11:39 16:30 20:01 WBC (3.8-10.6) k/uL RBC (4.30-5.90) m/uL Hgb (13.0-17.5) gm/dL Hct (39.0-53.0) % Sodium (137-145) mmol/L Chloride (98-107) mmol/L BUN (9-20) mg/dL Creatinine (0.66-1.25) mg/dL Glucose (74-99) mg/dL POC Glucose (mg/dL) 228 H 130 H 159 H (70-110) mg/dL Calcium (8.4-10.2) mg/dL 05/26/23 05/26/23 05/26/23 Range/Units 06:43 07:18 07:18 WBC 11.1 H (3.8-10.6) k/uL RBC 2.94 L (4.30-5.90) m/uL Hgb 9.3 L (13.0-17.5) gm/dL Hct 28.3 L (39.0-53.0) % Sodium 134 L (137-145) mmol/L Chloride 96 L (98-107) mmol/L BUN 61 H (9-20) mg/dL Creatinine 5.91 H (0.66-1.25) mg/dL Glucose 127 H (74-99) mg/dL POC Glucose (mg/dL) 133 H (70-110) mg/dL Calcium 7.8 L (8.4-10.2) mg/dL Assessment and Plan Assessment: Coronary artery disease status post CABG surgery on 05/13 Acute kidney injury on chronic kidney disease stage III. Requiring hemodialysis Mental status most likely metabolic encephalopathy, rule out intracranial lesion Cardiomyopathy with ejection fraction 40-45% Diabetes mellitus History of Hypertension, currently pressure is borderline Hyperlipidemia History of pulmonary embolism on Eliquis Leukocytosis, Improving Plan: Continue with Aspirin and Plavix Neurology consult, patient on MRI of the brain and EEG stump insulin drip and start Levemir insulin with insulin sliding scale Continue with amiodarone drip per critical care team. Started on hemodialysis per nephrology team Continue the breathing treatment Start insulin drip and monitor glucose Incentive spirometry Nephrology consult Several consultants on the case significant cardiothoracic surgery primary team, pulmonary team and cardiology team Labs and medication reviewed.. Continue same treatment. Continue with symptomatic treatment. Resume home medication. Monitor lytes and vitals. DVT and GI prophylaxis. Further recommendations depends on the clinical course of the patient DVT prophylaxis: Deferred to surgery team GI Prophylaxis: Ppi thank you for consulting us and we will follow up with the
[2023-05-26 11:39] LABS: Glucose,Whole Blood 143 mg/dL (70-110)
--- NOTE | 2023-05-26 12:41 | P.PN ---
Subjective Patient is seen for follow-up for acute kidney injury status post coronary artery bypass surgery. Patient has underlying chronic kidney disease NKF stage IV with baseline creatinine around 1.4 to 2 mg/dL Patient was started on hemodialysis on 05/17/2023 for oliguric ATN postop. Urine output remains low. No response to 80 mg IV Lasix. Patient is scheduled for hemodialysis today. Overall he states he is feeling stronger. No significant complaints today. Patient will be going to inpatient rehab at [facility] and we will continue hemodialysis there Objective - Vital Signs Vital signs: Vital Signs Temp 98.3 F 05/26/23 12:00 Pulse 56 L 05/26/23 12:00 Resp 18 05/26/23 12:00 BP 134/64 05/26/23 12:00 Pulse Ox 94 L 05/26/23 12:00 FiO2 50 05/13/23 15:13 Intake & Output 05/25/23 05/26/23 05/26/23 18:59 06:59 18:59 Intake Total 908 180 Output Total 2800 0 Balance -1892 0 180 Weight 111.7 kg Intake: IV 10 Invasive Line 5 10 Oral 598 180 Hemodialysis 300 Output: Post Void Residual 0 Hemodialysis 2800 Other: Voiding Method Urinal Urinal Urinal # Voids 0 # Bowel Movements 1 ABP, PAP, CO, CI - Last Documented Arterial Blood Pressure 116/42 Pulmonary Artery Pressure 29/9 Cardiac Output 4.5 Cardiac Index 2.2 - Exam Awake, comfortable, in no acute distress Examination of the heart S1 and S2 Examination lungs bilateral breath sounds are heard, decreased breath sounds at the bases Examination lower extremity shows 2+ edema in bilateral lower extremities and upper extremities [employer] exam grossly intact - Labs CBC & Chem 7: 05/26/23 07:18 05/26/23 07:18 Labs: Abnormal Lab Results - Last 24 Hours (Table) 05/25/23 05/25/23 05/26/23 Range/Units 16:30 20:01 06:43 WBC (3.8-10.6) k/uL RBC (4.30-5.90) m/uL Hgb (13.0-17.5) gm/dL Hct (39.0-53.0) % Sodium (137-145) mmol/L Chloride (98-107) mmol/L BUN (9-20) mg/dL Creatinine (0.66-1.25) mg/dL Glucose (74-99) mg/dL POC Glucose (mg/dL) 130 H 159 H 133 H (70-110) mg/dL Calcium (8.4-10.2) mg/dL 05/26/23 05/26/23 05/26/23 Range/Units 07:18 07:18 11:38 WBC 11.1 H (3.8-10.6) k/uL RBC 2.94 L (4.30-5.90) m/uL Hgb 9.3 L (13.0-17.5) gm/dL Hct 28.3 L (39.0-53.0) % Sodium 134 L (137-145) mmol/L Chloride 96 L (98-107) mmol/L BUN 61 H (9-20) mg/dL Creatinine 5.91 H (0.66-1.25) mg/dL Glucose 127 H (74-99) mg/dL POC Glucose (mg/dL) 143 H (70-110) mg/dL Calcium 7.8 L (8.4-10.2) mg/dL Assessment and Plan Assessment: 1. Acute kidney injury, oliguric ATN postoperatively. Started on hemodialysis on 05/17/2023. Patient remains oliguric. 2. Status post coronary artery bypass surgery on 05/13/2023 3. Coronary artery disease with ejection fraction 40-45%. 4. History of PE maintained on eliquis prior to admission 5. Chronic kidney disease NKF stage IV with baseline creatinine around 2 mg/dL since September 2022. Etiology is likely diabetic kidney disease. UA shows 2+ protein 6. Volume overload Plan: Hemodialysis today. DC sodium bicarb
--- NOTE | 2023-05-26 13:43 | P.PN ---
Subjective Progress Note Date: 05/26/23 The patient is seen today 05/19/2023 in follow-up in the intensive care unit. He is currently sitting up in bed. Awake, alert, confused, slow to respond. Weak. EEG reveals background slowing of mild to moderate degree suggestive of encephalopathy. Continues to maintain good O2 saturations in the 90s on 3 L/m per nasal cannula. Ultrasound of the chest revealed no significant fluid for thoracentesis. He is receiving hemodialysis today. Yesterday they removed 500 ML's and hoping for thousand today. He is on norepinephrine at 0.02 mcg/kg/m. 0.9 normal saline at 20 ML's per hour. Insulin drip currently on hold. He is on antibiotics in the form of vancomycin and cefepime. He remains on bro nchodilators. Working with the incentive spirometer. Continued on oral amiodarone. Anticoagulated with Eliquis. He is status post 2 units of packed red blood cells this admission. Current hemoglobin 7.7. Platelets 147. White count 8.4. Sodium 134. Potassium 3.9. Bicarb 34. BUN 36. Creatinine 5.26. Glucose 155. AST 257. ALT 43. The patient is seen today 05/20/2023 in follow-up in the intensive care unit. He is currently up in a chair at the bedside. Awake and alert in no acute d istress. He remains afebrile. He is down to 2 L nasal cannula and maintaining O2 saturations in the 90s. Currently in sinus rhythm. Chest x-ray showing some atelectasis of the right lower lobe. Encouraged increased use the incentive spirometer. Left pleural chest tube remains in place. He did receive hemodialysis yesterday with 2 L of fluid removed. His norepinephrine has been off since 6:30 this morning. He is continued on vancomycin and cefepime. Cultures are revealing no growth. He is status post 2 units of packed red blood cells this admission. Current hemoglobin 8.7. Platelets 151. White count 9.2. Sodium 134. Potassium 3.8. Bicarb 26. BUN 40. Creatinine 4.55. Glucose 203. AST 207. ALT 28. Cortisol 28. He remains on DuoNeb inhalations. The patient is seen today 05/21/2020 in the intensive care unit. Distress. Plan is for hemodialysis with a goal of 3 L to be removed today. He is also to have a permacath placed. He'll be on a Wednesday schedule for his dialysis treatments. Chest x-ray shows improving aeration of the right lower lobe. Left pleural chest tube has been removed. No evidence of pneumothorax. He is remaining in sinus rhythm. He is maintaining O2 saturations in the 90s on 2 L/m per nasal cannula. He's been afebrile. Hemodynamically stable. He is status post 2 units of packed red blood cells this admission. Current hemoglobin 8.8. Platelets 175. White count 9.2. Sodium 133. Potassium 3.7. Bicarb 26. BUN 61. Creatinine 5.94. Glucose 116. Urine, blood, sputum cultures all revealed no growth. He remains on bronchodilators. Continues to work with the incentive spirometer. The patient is seen today 05/22/2023 in follow-up in the intensive care unit. Currently sitting up in a chair at the bedside. Awake and alert in no acute distress. Maintaining good O2 saturations in the 90s on room air. No IV fluids. He did receive hemodialysis yesterday with 2.8 L of fluid removed. He did have a right internal jugular hemodialysis catheter placed yesterday. Right femoral catheter was removed. Chest x-ray reveals small right pleural effusion with associated atelectasis. He is continuing to work with his incentive spirometer. Urine, blood and sputum cultures all revealed no growth. He remains on DuoNeb inhalations. Anticoagulated with Eliquis. Progress note dated 05/23/2023. The patient is seen today in room 383. He was transferred out of the intensive care unit yesterday. The patient's on room air. He's not receiving any IV fluids. The plan is for Wednesday/Wednesday/Wednesday hemodialysis. The patient did not have dialysis yesterday today. He's feeling a bit stronger day by day. Sti ll has a long way to go. White count 13.7, hemoglobin 10, hematocrit 29.2, and platelet count is normal. Sodium 133, potassium 4, chlorides 97, CO2 23, BUN 74, creatinine 6.89. Chest x-ray shows an small right pleural effusion. On today's evaluation of 05/24/2023, the patient is on room air oxygen. The patient is not having any major respiratory difficulties. The patient is using the incentive spirometer. Hemodialysis is being performed to a permacath in his right IJ. Chest x-ray from this morning shows a small amount of fluid in the right lung. His urine output is minimal at this point in time. No significant urine output and the patient remains in renal failure. No chest pain. No shortness of breath. He is postop day #11 following two-vessel bypass surgery. He also has an acute kidney injury and currently is on hemodialysis. His cardiac rhythm is sinus. Blood work from today shows a white cell count 20 with a hemoglobin of 10.2. BUN is 103 with a creatinine of 8 and a sodium level is at 132. On 05/25/2023, the patient is feeling well. Yesterday, he felt quite weak and lethargic following his hemodialysis. This morning, he seems to be slightly more awake. Denies having any chest pain. Surgery wound is dry clean and intact. The white cell count was elevated yesterday up to 20 and dropped down to 13. Chest x-ray still showing bilateral pleural effusions and pulmonary vascular congestion. He is not having any major respiratory difficulties for now. The patient underwent hemodialysis yesterday with removal of 2.5 L of fluid and irises also plan for today. No new complaints otherwise for now. The hemoglobin is at 8.9, BUN is 79 with a creatinine of 6.7 and the patient is not producing any significant urine output. Sodium level is at 132. On 05/26/2023, the patient is doing well. No specific complaints. The patient underwent hemodialysis yesterday and the patient is going to have another session of hemodialysis. He remains oliguric. Repeat chest x-ray from today shows pleural effusions bilaterally, small on the left a moderate-sized right. The patient having any signs of respiratory distress. The WBC count is 11 hemoglobin was at 5.3 and a platelet count is 206. BUN is at 61 with a creatinine of 5.9 and his sodium level is at 134. Objective - Vital Signs Vital signs: Vital Signs Temp 98.3 F 05/26/23 12:00 Pulse 56 L 05/26/23 12:00 Resp 18 05/26/23 12:00 BP 134/64 05/26/23 12:00 Pulse Ox 94 L 05/26/23 12:00 FiO2 50 05/13/23 15:13 Intake & Output 05/25/23 05/26/23 05/26/23 18:59 06:59 18:59 Intake Total 908 180 Output Total 2800 0 Balance -1892 0 180 Weight 111.7 kg Intake: IV 10 Invasive Line 5 10 Oral 598 180 Hemodialysis 300 Output: Post Void Residual 0 Hemodialysis 2800 Other: Voiding Method Urinal Urinal Urinal # Voids 0 # Bowel Movements 1 ABP, PAP, CO, CI - Last Documented Arterial Blood Pressure 116/42 Pulmonary Artery Pressure 29/9 Cardiac Output 4.5 Cardiac Index 2.2 - Exam CONSTITUTIONAL: Appears comfortable, cooperative, no acute distress RESPIRATORY: Lungs sounds diminished bilaterally, right greater than left. Respirations even, nonlabored. Currently on room air with oxygen saturation 94%. Able to achieve 0696-0070 mL on incentive spirometry. Strong non- productive cough. CARDIOVASCULAR: S1, S2 present. Regular rate and rhythm, sinus rhythm on telemetry. Sternum stable. Palpable peripheral pulses bilaterally. Generalized edema present. No calf pain or tenderness noted. Heart hugger, antiembolism stockings, SCDs present. GASTROINTESTINAL: Abdomen soft, nontender, nondistended, obese. Active bowel sounds present 4 quadrants. Tolerating diet. Positive bowel movement 05/25 GENITOURINARY: No further urine output, receiving HD INTEGUMENTARY: Skin is warm and dry. Anterior chest incision well approximated. Right lower extremity EVH site well approximated without redness or drainage. NEUROLOGIC: Cranial nerves II through XII intact MUSKULOSKELETAL: Able to move all extremities, strength equal bilaterally PSYCHIATRIC: Alert and oriented to person, place, year and situation INVASIVE LINES AND TUBES: Right chest PermCath present - Labs CBC & Chem 7: 05/26/23 07:18 05/26/23 07:18 Labs: Abnormal Lab Results - Last 24 Hours (Table) 05/25/23 05/25/23 05/26/23 Range/Units 16:30 20:01 06:43 WBC (3.8-10.6) k/uL RBC (4.30-5.90) m/uL Hgb (13.0-17.5) gm/dL Hct (39.0-53.0) % Sodium (137-145) mmol/L Chloride (98-107) mmol/L BUN (9-20) mg/dL Creatinine (0.66-1.25) mg/dL Glucose (74-99) mg/dL POC Glucose (mg/dL) 130 H 159 H 133 H (70-110) mg/dL Calcium (8.4-10.2) mg/dL 05/26/23 05/26/23 05/26/23 Range/Units 07:18 07:18 11:38 WBC 11.1 H (3.8-10.6) k/uL RBC 2.94 L (4.30-5.90) m/uL Hgb 9.3 L (13.0-17.5) gm/dL Hct 28.3 L (39.0-53.0) % Sodium 134 L (137-145) mmol/L Chloride 96 L (98-107) mmol/L BUN 61 H (9-20) mg/dL Creatinine 5.91 H (0.66-1.25) mg/dL Glucose 127 H (74-99) mg/dL POC Glucose (mg/dL) 143 H (70-110) mg/dL Calcium 7.8 L (8.4-10.2) mg/dL Assessment and Plan Plan: Coronary artery disease status post off-pump coronary artery bypass grafting 2 with a left internal thoracic artery to the left anterior descending artery, saphenous vein graft from the aorta to the posterior descending artery. Left atrial appendage ligation. Postoperative day # 13 Acute kidney injury requiring hemodialysis. The patient is having daily dialysis, another sister to be done today Bilateral pleural effusion small on the left, the site of the right , post thoracotomy and cardiac surgery History of chronic kidney disease, stage IV. Ischemic cardiomyopathy with ejection fraction 40-45%. History of pulmonary embolism previously on Eliquis. Diabetes mellitus. Hypertension. CVA. BPH. Hyperlipidemia. Previous COVID-19 infection. Plan: Continue hemodialysis per nephrology, last session was done yesterday and another session to be done today Respiratory status is stable and the patient is currently on room air oxygen The patient continues to have some pleural effusion bilaterally Continue use of incentive spirometer Continue hemodialysis per nephrology Monitor the white cell count which is improved compared to yesterday Continue aspirin Continue amiodarone Continue Eliquis Continue metoprolol 12.5 mg by mouth twice a day Midodrine for hypotension Bicarb supplements We'll follow Subacute rehabilitation possibly today or tomorrow
[2023-05-26 16:38] LABS: Glucose,Whole Blood 113 mg/dL (70-110)
[2023-05-26] MEDS: ACETAMINOPHEN TAB 500 MG TAB PO PRN (18:40)
[2023-05-26 19:58] LABS: Glucose,Whole Blood 143 mg/dL (70-110)
[2023-05-27 05:59] LABS: Glucose,Whole Blood 89 mg/dL (70-110)
[2023-05-27] MEDS: INSULIN DETEMIR (LEVEMIR) 100 UNIT/ML SYR SQ SCH ×2 (06:21→20:18)
[2023-05-27] MEDS: INSULIN ASPART (NovoLOG) 100 UNIT/ML VIAL SQ SCH ×7 (06:21→20:04)
[2023-05-27] MEDS: PANTOPRAZOLE 40 MG TABLET PO SCH (06:22)
--- NOTE | 2023-05-27 07:52 | XR ---
EXAMINATION TYPE: XR chest 2V DATE OF EXAM: 05/27/2023 COMPARISON: 05/26/2023 HISTORY: 68 year-old male post cardiac surgery TECHNIQUE: PA and lateral views FINDINGS: Right-sided double-lumen hemodialysis catheter with tips at the lower SVC and cavoatrial junction. He art remains mildly enlarged. Median sternotomy wires and post-CABG clips in the mediastinum. I'm melecio g small to moderate right pleural effusion with opacity extending up to the midlung level. Trace pleu ral effusion on the left noted on the lateral view. IMPRESSION: Relatively similar exam was [id number] right and trace left pleural effusions with adjacent at electasis and/or consolidation.
[2023-05-27] MEDS: FOLIC ACID 1 MG TAB PO SCH (07:53)
[2023-05-27] MEDS: ASPIRIN 81 MG PO SCH (07:53)
[2023-05-27] MEDS: APIXABAN 2.5 MG TABLET PO SCH ×2 (07:53→19:57)
[2023-05-27] MEDS: AMIODARONE 200 MG TAB PO SCH (07:53)
[2023-05-27] MEDS: METOPROLOL TARTRATE 12.5 MG TAB PO SCH ×2 (07:53→19:57)
[2023-05-27 08:09] LABS: HCT 28.7 % (39.0-53.0); HGB 9.5 gm/dL (13.0-17.5); Hypochromasia Slight; MCH 32.1 pg (25.0-35.0); MCHC 33.1 g/dL (31.0-37.0); Platelet Count 216 k/uL (150-450); RBC 2.95 m/uL (4.30-5.90); RDW 15.1 % (11.5-15.5); WBC 11.6 k/uL (3.8-10.6)
[2023-05-27 08:28] LABS: African American GFR (CKD) 12 (>60 ml/min/1.73 sqM); Anion Gap 13 mmol/L; Blood Urea Nitrogen 59 mg/dL (9-20); Carbon Dioxide 24 mmol/L (22-30); Chloride 98 mmol/L (98-107); Glucose 92 mg/dL (74-99); Non-African American GFR(CKD) 10 (>60 ml/min/1.73 sqM); Potassium 4.4 mmol/L (3.5-5.1); Sodium 135 mmol/L (137-145)
--- NOTE | 2023-05-27 09:05 | P.PN ---
Subjective Progress Note Date: 05/27/23 Principal diagnosis: Two-vessel coronary artery disease. Past medical history significant for nonischemic cardiomyopathy with an ejection fraction of 25-30% which improved to an ejection fraction of 45-50% with intense medical therapy, history of left ventricular thrombus on transthoracic 2-D echocardiogram completed on 05/23/2023 which was organized and did did not appear acute, history of pulmonary embolus on eliquis on an outpatient basis, hypertension, diabetes mellitus, history of CVA with some residual right-sided weakness, COVID-19 infection in early 2021, acute on chronic kidney disease with a baseline creatinine of 2.0, and prostate disorder. POD #14 Off pump coronary artery bypass grafting x 2. Left internal thoracic artery (in-situ) to left anterior descending artery, saphenous vein from aorta to posterior descending artery, Endoscopic right greater saphenous vein harvest, Left atrial appendage ligation using 35mm AtriClip, Graft flow measurements using the Quantros-Stim flow meter system, and an intraoperative transesophageal echocardiogram performed by anesthesia. Postoperative acute blood loss anemia and thrombocytopenia, expected given hemodilution. Intra and postoperative hypotension, unexpected Acute kidney injury, likely secondary to hypoperfusion and history of chronic kidney disease with a baseline creatinine of 2.0, status post placement of temporary hemodialysis catheter, and status post permacath placement with removal of right groin hemodialysis catheter. Mental status change, unsure of eitiology, likely metabolic encephalopathy vs new stroke, resolved Leukocytosis, unknown origin, remains afebrile, all cultures remained negative Medical debility The patient was seen and examined in follow-up today 05/27/2023 on the cardiac stepdown unit. Currently sitting up to the bedside chair, is awake, alert, oriented 3 and is in no acute apparent distress. Denies any complaints of pain or shortness of breath at this time. Oxygen saturations are 94% on room air and he is achieving 1801-4745 mL on his incentive spirometry with encouragement. He received hemodialysis yesterday with 2 L dialyzed. He has been ambulating in the cardiac stepdown unit hallway with assistance from physical therapy, occupational therapy and nursing staff. The patient reports that he is tolerating the walks well but does get short winded with the walk. Insurance often remains pending for inpatient rehab. Chest x-ray was reviewed. Eric wheeler results reviewed. The patient's and daughter She have been updated per phone yesterday. Objective - Vital Signs Vital signs: Vital Signs Temp 98.1 F 05/27/23 07:50 Pulse 62 05/27/23 07:50 Resp 17 05/27/23 07:50 BP 138/69 05/27/23 07:50 Pulse Ox 94 L 05/27/23 07:50 FiO2 50 05/13/23 15:13 Intake & Output 05/26/23 05/27/23 05/27/23 18:59 06:59 18:59 Intake Total 1300 Output Total 2256 Balance -956 Weight 110.4 kg Intake: Oral 600 Hemodialysis 700 Output: Urine 0 Hemodialysis 2256 Other: Voiding Method Urinal Urinal # Voids 0 ABP, PAP, CO, CI - Last Documented Arterial Blood Pressure 116/42 Pulmonary Artery Pressure 29/9 Cardiac Output 4.5 Cardiac Index 2.2 - Exam CONSTITUTIONAL: Sitting up to the bedside chair on the cardiac stepdown unit, appears comfortable, cooperative, no apparent acute distress, generalized weakness. HEENT: Neck is supple, no JVD, no lymphadenopathy. RESPIRATORY: Lungs sounds essentially clear throughout, diminished to his bilateral bases, right greater than left. Respirations are symmetrical and nonlabored. Currently on room air with oxygen saturations 94%. Able to achieve 2712-9601 mL on his incentive spirometry. Strong cough. CARDIOVASCULAR: Regular rhythm and rate. S1 and S2 present, negative for S3, gallop or murmur. Sternum is stable. Palpable peripheral pulses bilaterally, 1+ generalized edema. No calf pain or tenderness noted. Heart hugger in place. Knee-high GENNY hose and sequential compression devices in place to his bilateral lower extremities. GASTROINTESTINAL: Abdomen soft, nontender, nondistended. Active bowel sounds present 4 quadrants. Tolerating diet. Passing flatus. No guarding or rigidity. Bowel movement on 05/25/2023. GENITOURINARY: Hemodialysis yesterday with 2000 mL dialyzed. No urine output in the last 24 hours. Right upper chest hemodialysis permacath in place. INTEGUMENTARY: Skin is warm and dry with no evidence of clubbing or cyanosis. Midline sternal incision clean dry and well approximated, covered with dry intact dressing. Right lower extremity EVH sites well approximated without redness or drainage. NEUROLOGIC: Cranial nerves II through XII intact. No Focal deficits. MUSKULOSKELETAL: Able to move all extremities, strength equal bilaterally, generalized weakness. Chronic right-sided weakness form previous CVA. PSYCHIATRIC: Alert, oriented 3 to person, place, and time. - Allied health notes Allied health notes reviewed: nursing - Labs CBC & Chem 7: 05/27/23 07:22 05/27/23 07:22 Labs: Abnormal Lab Results - Last 24 Hours (Table) 05/26/23 05/26/23 05/26/23 Range/Units 11:38 16:30 19:56 WBC (3.8-10.6) k/uL RBC (4.30-5.90) m/uL Hgb (13.0-17.5) gm/dL Hct (39.0-53.0) % Sodium (137-145) mmol/L BUN (9-20) mg/dL Creatinine (0.66-1.25) mg/dL POC Glucose (mg/dL) 143 H 113 H 143 H (70-110) mg/dL Calcium (8.4-10.2) mg/dL 05/27/23 05/27/23 Range/Units 07:22 07:22 WBC 11.6 H (3.8-10.6) k/uL RBC 2.95 L (4.30-5.90) m/uL Hgb 9.5 L (13.0-17.5) gm/dL Hct 28.7 L (39.0-53.0) % Sodium 135 L (137-145) mmol/L BUN 59 H (9-20) mg/dL Creatinine 5.21 H (0.66-1.25) mg/dL POC Glucose (mg/dL) (70-110) mg/dL Calcium 8.0 L (8.4-10.2) mg/dL - Imaging and Cardiology Chest x-ray: report reviewed, image reviewed Assessment and Plan Assessment: Two-vessel coronary artery disease, status post off pump 2 vessel coronary artery bypass grafting surgery Nonischemic cardiomyopathy with an EF of 45-50% History of left ventricular thrombus on transthoracic 2-D echocardiogram on 05/23/2023 which was organized and did not appear to be acute History of pulmonary embolus on eliquis on an outpatient basis History of hypertension Diabetes mellitus, with a preoperative hemoglobin A1c 7.4% History of CVA with some residual right-sided weakness COVID-19 infection in early 2021 Chronic kidney disease stage IV with a baseline creatinine of 2.0 Prostate disorder Postoperative acute blood loss anemia and thrombocytopenia, expected given hemodilution Intraoperative and Postoperative hypotension, unexpected Acute kidney injury, hemodynamic ATN with borderline urine output, likely secondary to hypoperfusion, status post temporary hemodialysis catheter placement Paroxysmal atrial fibrillation, status post ligation of left atrial appendage, currently in sinus rhythm Mental status change, unsure of eitiology, likely metabolic encephalopathy vs new stroke, resolved Leukocytosis, unclear etiology, afebrile, cultures negative Medical debility Plan: Continue to maximize medical therapy with low dose aspirin, statin, and beta keara. Continue amiodarone for atrial fibrillation prophylaxis, continue Eliquis. Encourage incentive spirometry use 10 times every hour while awake. B ronchodilators per pulmonology. Continue to follow sputum culture results, preliminary results show no growth. Will monitor daily labs and chest x-rays. Electrolyte replacement per protocol. GI/DVT prophylaxis. Increase activity as tolerated. PT/OT/cardiac rehab following. Pain control with current medication regimen. No Toradol due to kidney disease. Insulin management per internal medicine service, patient's preoperative hemoglobin A1c was 7.4%. Patient needs tight glucose control to promote of sternal wound healing. Daily weights. Continue record strict inaccurate I's and O's. Patient is to shower daily. Hemodialysis recommendations per nephrology. Discharge planning is in place, we'll likely discharge to inpatient rehab within the next 24 hours, insurance authorization is pending. More recommendations to follow based on patient's clinical course. Time with Patient: Greater than 30
[2023-05-27] MEDS: IPRATROPIUM-ALBUTEROL 3 ML NEB INHALATION SCH ×4 (09:29→23:42)
--- NOTE | 2023-05-27 11:05 | P.PN ---
Subjective Progress Note Date: 05/27/23 Subjective: Patient reports feeling tired. Slow improvement as compared to yesterday. No acute overnight events LABS: Hemoglobin 9.4, creatinine 5.1 BP 134/65, heart rate 63 05/24 Patient is postop day #11 for coronary artery bypass grafting 2 and seen today on the cardiac stepdown unit. Telemetry is a sinus rhythm. Heart rate is in the 60s, blood pressure 112/55, pulse ox 95% on room air. Patient is followed by nephrology for acute kidney injury on dialysis that started 05/17. Patient states he is feeling a bit better. He continues to have significant weakness, he states he is only able to stand and walk with assistance. He is concerned about his discharge plan. 05/25 The patient states that he is feeling a little bit stronger slowly improving. He is scheduled for hemodialysis today. Heart rate has been in the 60s, blood pressure 121/72, pulse ox 94% on room air. Repeat blood work reveals potassium 3.9, BUN 79 creatinine 6.73. Hemoglobin 8.9. Chest x-ray correlate for heart failure. Findings stable. 05/26 Patient denies having any chest pain, no shortness of breath. He continues to have weakness and fatigue. Heart rate is in the 60s, blood pressure 1/55, pulse ox 91-95% on room air. He is on dialysis schedule Wednesday. Patient is scheduled for transfer to [facility] for inpatient rehab tomorrow. 05/27 Patient denies having any chest pain. His main concern is that he has significant weakness. He states he is able to ambulate to the doorway only. He is to continue hemodialysis on Wednesday schedule. Patient is scheduled for discharge to [facility] for inpatient rehab today. Heart rate is in the 50s and 60s, blood pressure 138/69. Pulse ox 94% on room air. Repeat blood work reveals WBC 11.6, hemoglobin 9.5, sodium 135, potassium 4.4, BUN 59 creatinine 5.21. PHYSICAL EXAMINATION Vital signs reviewed. CONSTITUTIONAL: No apparent distress. HEENT: Head is normocephalic. Pupils are equal, round. Sclerae anicteric. Mucous membranes of the mouth are moist. No JVD. No carotid bruit. CHEST EXAMINATION: Lungs are clear to auscultation. No chest wall tenderness is noted on palpation or with deep breathing. HEART EXAMINATION: Regular rate and rhythm. S1, S2 heard. No murmurs, gallops or rub. ABDOMEN: Soft, nontender. Positive bowel sounds. EXTREMITIES: 2+ peripheral pulses, 1+ lower extremity edema and no calf tenderness. NEUROLOGIC EXAMINATION: Patient is awake, alert and oriented x3. ASSESSMENT: 1. CAD with LEASE ADMINISTRATION SUPERVISOR LAD, LEASE ADMINISTRATION SUPERVISOR RCA status post ARAUZ to LAD and SVG to PDA 05/13 2. Ischemic cardiomyopathy EF previously 25-30% improved to 45-50% 3. Chronic systolic heart failure 4. Diabetes mellitus type 2 5. Hypertension 6. Chronic kidney disease stage IV 7. Previous history of stroke 8. Previous history of LV thrombus 9. Postoperative episode of atrial fibrillation, paroxysmal PLAN: Continue current medications include aspirin, Eliquis 2.5 mg. Metoprolol 12.5 mg. Continue oral she was amiodarone 200 mg. [place] Entresto and Aldactone due to ANURADHA. Continue supportive care. Discharge planning to [facility] for inpatient rehab. Nurse practitioner note has been reviewed, I agree with the documented findings and plan of care. Patient was seen and examined. Objective - Vital Signs Vital signs: Vital Signs Temp 98.1 F 05/27/23 07:50 Pulse 64 05/27/23 09:40 Resp 17 05/27/23 07:50 BP 138/69 05/27/23 07:50 Pulse Ox 94 L 05/27/23 07:50 FiO2 50 05/13/23 15:13 Intake & Output 05/26/23 05/27/23 05/27/23 18:59 06:59 18:59 Intake Total 1300 Output Total 2256 Balance -956 Weight 110.4 kg Intake: Oral 600 Hemodialysis 700 Output: Urine 0 Hemodialysis 2256 Other: Voiding Method Urinal Urinal Urinal # Voids 0 ABP, PAP, CO, CI - Last Documented Arterial Blood Pressure 116/42 Pulmonary Artery Pressure 29/9 Cardiac Output 4.5 Cardiac Index 2.2 - Labs CBC & Chem 7: 05/27/23 07:22 05/27/23 07:22 Labs: Abnormal Lab Results - Last 24 Hours (Table) 05/26/23 05/26/23 05/26/23 Range/Units 11:38 16:30 19:56 WBC (3.8-10.6) k/uL RBC (4.30-5.90) m/uL Hgb (13.0-17.5) gm/dL Hct (39.0-53.0) % Sodium (137-145) mmol/L BUN (9-20) mg/dL Creatinine (0.66-1.25) mg/dL POC Glucose (mg/dL) 143 H 113 H 143 H (70-110) mg/dL Calcium (8.4-10.2) mg/dL 05/27/23 05/27/23 Range/Units 07:22 07:22 WBC 11.6 H (3.8-10.6) k/uL RBC 2.95 L (4.30-5.90) m/uL Hgb 9.5 L (13.0-17.5) gm/dL Hct 28.7 L (39.0-53.0) % Sodium 135 L (137-145) mmol/L BUN 59 H (9-20) mg/dL Creatinine 5.21 H (0.66-1.25) mg/dL POC Glucose (mg/dL) (70-110) mg/dL Calcium 8.0 L (8.4-10.2) mg/dL
[2023-05-27 11:23] LABS: Glucose,Whole Blood 123 mg/dL (70-110)
[2023-05-27 11:34] VITALS: BMI 40.5
--- NOTE | 2023-05-27 13:11 | P.PN ---
Subjective Patient is seen for follow-up for acute kidney injury status post coronary artery bypass surgery. Patient has underlying chronic kidney disease NKF stage IV with baseline creatinine around 1.4 to 2 mg/dL Patient was started on hemodialysis on 05/17/2023 for oliguric ATN postop. Urine output remains low. No response to 80 mg IV Lasix. Patient became unresponsive for a few minutes yesterday postdialysis. Heart rate was at 42 and systolic blood pressure was 10 5 mmHg. Patient did get about 200 mL of fluid and since then his blood pressure has been stable with systolic staying 140s to 130s. Heart rate has been mid 50s to 60s. No significant complaints today. Patient reports good appetite. No urine output. Objective - Vital Signs Vital signs: Vital Signs Temp 98.1 F 05/27/23 12:00 Pulse 60 05/27/23 12:10 Resp 16 05/27/23 12:00 BP 126/71 05/27/23 12:00 Pulse Ox 96 05/27/23 12:00 FiO2 50 05/13/23 15:13 Intake & Output 05/26/23 05/27/23 05/27/23 18:59 06:59 18:59 Intake Total 1300 Output Total 2256 Balance -956 Weight 110.4 kg 110.4 kg Intake: Oral 600 Hemodialysis 700 Output: Urine 0 Hemodialysis 2256 Other: Voiding Method Urinal Urinal Urinal # Voids 0 ABP, PAP, CO, CI - Last Documented Arterial Blood Pressure 116/42 Pulmonary Artery Pressure 29/9 Cardiac Output 4.5 Cardiac Index 2.2 - Exam Awake, comfortable, in no acute distress Examination of the heart S1 and S2 Examination lungs bilateral breath sounds are heard, decreased breath sounds at the bases Examination lower extremity shows 2+ edema in bilateral lower extremities and upper extremities [employer]ER exam grossly intact - Labs CBC & Chem 7: 05/27/23 07:22 05/27/23 07:22 Labs: Abnormal Lab Results - Last 24 Hours (Table) 05/26/23 05/26/23 05/27/23 Range/Units 16:30 19:56 07:22 WBC 11.6 H (3.8-10.6) k/uL RBC 2.95 L (4.30-5.90) m/uL Hgb 9.5 L (13.0-17.5) gm/dL Hct 28.7 L (39.0-53.0) % Sodium (137-145) mmol/L BUN (9-20) mg/dL Creatinine (0.66-1.25) mg/dL POC Glucose (mg/dL) 113 H 143 H (70-110) mg/dL Calcium (8.4-10.2) mg/dL 05/27/23 05/27/23 Range/Units 07:22 11:20 WBC (3.8-10.6) k/uL RBC (4.30-5.90) m/uL Hgb (13.0-17.5) gm/dL Hct (39.0-53.0) % Sodium 135 L (137-145) mmol/L BUN 59 H (9-20) mg/dL Creatinine 5.21 H (0.66-1.25) mg/dL POC Glucose (mg/dL) 123 H (70-110) mg/dL Calcium 8.0 L (8.4-10.2) mg/dL Assessment and Plan Assessment: 1. Acute kidney injury, oliguric ATN postoperatively. Started on hemodialysis on 05/17/2023. Patient remains oliguric. 2. Status post coronary artery bypass surgery on 05/13/2023 3. Coronary artery disease with ejection fraction 40-45%. 4. History of PE maintained on eliquis prior to admission 5. Chronic kidney disease NKF stage IV with baseline creatinine around 2 mg/dL since September 2022. Etiology is likely diabetic kidney disease. UA shows 2+ protein 6. Volume overload 7. Brief episode of unresponsiveness post hemodialysis yesterday. Heart rate was 42 and systolic blood pressure 10 5 mmHg. Patient received about 200 mL of fluid back and has been hemodynamically stable since then. Plan: Hemodialysis in a.m. PR sodium bicarb
--- NOTE | 2023-05-27 14:16 | P.PN ---
Subjective Progress Note Date: 05/27/23 68 years old male with past medical history of Diabetes Mellitus, Hypertension, hyperlipidemia, benign prostatic hypertrophy, pulmonary embolism on blood thinner He was admitted for coronary artery disease affecting mainly to vessels and underwent coronary artery bypass surgery yesterday and he was on mechanical ventilation for a short lived time, eventually he got extubated. Comfortable in bed with no chest pain or dyspnea. Hemodynamically stable. Patient has mild worsening of creatinine 2.8, 1.3 yesterday 05/15/2023 Fascia temo bed comfortably with no complaints. Blood pressure still borderline . We will see improvement on 15. Creatinine up to 4.0. Nephrology was consulted. Patient is status post bolus of 500 mL of normal saline. His urine analysis is abnormal. Urine culture is negative. Bladder scan is negative. We don't a repeat urine culture Patient remains on aspirin Plavix and midodrine by surgery team 05/16/23 pt is awake alert with no dyspnea, no chest pain ,he denies any specific complaints but his renal function keep worsening and today his creatinine went up to 5.4, he was lasix drip at 20 mg per hour, pt is mostly will need hemodialysis per nephrology team pt is on dobutamine with poor urine output. pt has mild leukocytosis sugar is more 300 so increased levemir to 5 u bid and novolog 5 u tid ac pt is on bicarb drip as well kept on asprin and plavix , and midodrine 05/17/2023 Patient remains in ICU closely monitored case/critical care team, the primary ca rdiothoracic surgery team and principal clerk typist as well as manager commercial sales. He is status post bypass surgery and today is postoperative day #4. Creatinine is elevated up to 7.3 today. He is getting treatment for hemodialysis started here in the ICU from. His Lasix drip and backup as well He remains on dopamine drip Blood pressure is borderline with systolic blood pressure is stable around 90s t o 100. Hemoglobin 7.7, WBC within the reference range today 9000. Glucose was elevated more than 300 despite doubling the dose of Levemir last night to 5 mg twice a day. Therefore he was started on insulin drip This was discussed with patient in the thoracic primary team 05/18/2023 Patient is very lethargic and tired looking today. Open eyes to verbal stimuli and answer questions. He follows commands. Because of his change mentation neurologist has been consulted from a most likely patient will require MRI of the brain and EEG to rule out intracranial lesions or seizure activities. Blood pressure was controlled Labs reviewed Patient remains on insulin drip, dopamine drip and IV vancomycin 05/19/2023 Patient in the ICU, severely weak and lethargic and somewhat drowsy. He's undergoing hemodialysis and creatinine is elevated. Vitals are the same. Hemoglobin 7.7. He is on aspirin 81 mg Plavix and Protonix. I going to stop the insulin drip and start Levemir insulin and go up gradually with insulin sliding scale 05/24/2023 Patient was seen appropriate 3, is lying in the recliner comfortable, relaxed a pleasant. He denies any specific complaints. No chest pain dyspnea or other n ew complaint. He is hemodynamically stable. Stable and improving except for leukocytosis to 20,000. Patient currently sugar is controlled around 200 with Levemir 10 units twice a day. Metformin admission was because of persistent infection. B12 1355 which is elevated patient may benefit from rehab upon discharge 05/25/2023 Patient awake and alert, no chest pain, no dyspnea gets a breathing treatment. No new complaints. Vitals are stable. Hemoglobin 8.9, WBC 13,000, creatinine 6.5. Glucose control. Chest x-ray showing CHF but stable Patient remains on Eliquis and baby aspirin. Also he is on IV Lasix 40 mg twice daily. 05/26/2023 Patient lying in his chair comfortable denies any chest pain or dyspnea. He denies any other new complaint He is hemodynamically stable Labs are reviewed and his hemoglobin 9.3, WBC 11.1. Creatinine 5.9, sugar controlled. Chest x-ray showed bilateral pleural effusion and atelectasis, small Patient remains on eliquis 2.5 mg, IV Lasix 40 mg twice daily and aspirin 81 mg 05/27 patient seen and evaluated bedside, blood glucose better controlled. Denies shortness of breath or chest pain Objective - Vital Signs Vital signs: Vital Signs Temp 98.1 F 05/27/23 12:00 Pulse 60 05/27/23 12:10 Resp 16 05/27/23 12:00 BP 126/71 05/27/23 12:00 Pulse Ox 96 05/27/23 12:00 FiO2 50 05/13/23 15:13 Intake & Output 05/26/23 05/27/23 05/27/23 18:59 06:59 18:59 Intake Total 1300 Output Total 2256 Balance -956 Weight 110.4 kg 110.4 kg Intake: Oral 600 Hemodialysis 700 Output: Urine 0 Hemodialysis 2256 Other: Voiding Method Urinal Urinal Urinal # Voids 0 ABP, PAP, CO, CI - Last Documented Arterial Blood Pressure 116/42 Pulmonary Artery Pressure 29/9 Cardiac Output 4.5 Cardiac Index 2.2 - Exam PHYSICAL EXAMINATION: not in any acute distress. Well developed, well nourished. HEENT: Pupils are round and equally reacting to light. EOMI. No scleral icterus. No conjunctival pallor. Normocephalic, atraumatic. No pharyngeal erythema. No thyromegaly. CARDIOVASCULAR: Status post CABG, chest brace in place.. PULMONARY: Chest is clear to auscultation, no wheezing or crackles. ABDOMEN: Soft, nontender, nondistended, normoactive bowel sounds. No palpable organomegaly. MUSCULOSKELETAL: No joint swelling or deformity. EXTREMITIES: No cyanosis, clubbing, or pedal edema. NEUROLOGICAL: Gross neurological examination did not reveal any focal deficits. - Labs CBC & Chem 7: 05/27/23 07:22 05/27/23 07:22 Labs: Abnormal Lab Results - Last 24 Hours (Table) 05/26/23 05/26/23 05/27/23 Range/Units 16:30 19:56 07:22 WBC 11.6 H (3.8-10.6) k/uL RBC 2.95 L (4.30-5.90) m/uL Hgb 9.5 L (13.0-17.5) gm/dL Hct 28.7 L (39.0-53.0) % Sodium (137-145) mmol/L BUN (9-20) mg/dL Creatinine (0.66-1.25) mg/dL POC Glucose (mg/dL) 113 H 143 H (70-110) mg/dL Calcium (8.4-10.2) mg/dL 05/27/23 05/27/23 Range/Units 07:22 11:20 WBC (3.8-10.6) k/uL RBC (4.30-5.90) m/uL Hgb (13.0-17.5) gm/dL Hct (39.0-53.0) % Sodium 135 L (137-145) mmol/L BUN 59 H (9-20) mg/dL Creatinine 5.21 H (0.66-1.25) mg/dL POC Glucose (mg/dL) 123 H (70-110) mg/dL Calcium 8.0 L (8.4-10.2) mg/dL Assessment and Plan Assessment: Assessment and plan Coronary artery disease status post CABG surgery on 05/13 Ischemic cardiomyopathy Acute kidney injury on chronic kidney disease stage III. Requiring hemodialysis Acute metabolic encephalopathy Cardiomyopathy with ejection fraction 40-45% Diabetes mellitus History of Hypertension Hyperlipidemia History of pulmonary embolism on Eliquis * Continue current management including aspirin, Eliquis, metoprolol, amiodarone * Continue patient on Lantus and correctional insulin * Nephrology following secondary to initiation of hemodialysis * Metabolic encephalopathy has improved patient is alert to person and situation * cardiothoracic surgery primary, pulmonary, cardiology, nephrology
--- NOTE | 2023-05-27 14:33 | P.PN ---
Subjective Progress Note Date: 05/27/23 The patient is seen today 05/19/2023 in follow-up in the intensive care unit. He is currently sitting up in bed. Awake, alert, confused, slow to respond. Weak. EEG reveals background slowing of mild to moderate degree suggestive of encephalopathy. Continues to maintain good O2 saturations in the 90s on 3 L/m per nasal cannula. Ultrasound of the chest revealed no significant fluid for thoracentesis. He is receiving hemodialysis today. Yesterday they removed 500 ML's and hoping for thousand today. He is on norepinephrine at 0.02 mcg/kg/m. 0.9 normal saline at 20 ML's per hour. Insulin drip currently on hold. He is on antibiotics in the form of vancomycin and cefepime. He remains on bro nchodilators. Working with the incentive spirometer. Continued on oral amiodarone. Anticoagulated with Eliquis. He is status post 2 units of packed red blood cells this admission. Current hemoglobin 7.7. Platelets 147. White count 8.4. Sodium 134. Potassium 3.9. Bicarb 34. BUN 36. Creatinine 5.26. Glucose 155. AST 257. ALT 43. The patient is seen today 05/20/2023 in follow-up in the intensive care unit. He is currently up in a chair at the bedside. Awake and alert in no acute d istress. He remains afebrile. He is down to 2 L nasal cannula and maintaining O2 saturations in the 90s. Currently in sinus rhythm. Chest x-ray showing some atelectasis of the right lower lobe. Encouraged increased use the incentive spirometer. Left pleural chest tube remains in place. He did receive hemodialysis yesterday with 2 L of fluid removed. His norepinephrine has been off since 6:30 this morning. He is continued on vancomycin and cefepime. Cultures are revealing no growth. He is status post 2 units of packed red blood cells this admission. Current hemoglobin 8.7. Platelets 151. White count 9.2. Sodium 134. Potassium 3.8. Bicarb 26. BUN 40. Creatinine 4.55. Glucose 203. AST 207. ALT 28. Cortisol 28. He remains on DuoNeb inhalations. The patient is seen today 05/21/2020 in the intensive care unit. Distress. Plan is for hemodialysis with a goal of 3 L to be removed today. He is also to have a permacath placed. He'll be on a Wednesday schedule for his dialysis treatments. Chest x-ray shows improving aeration of the right lower lobe. Left pleural chest tube has been removed. No evidence of pneumothorax. He is remaining in sinus rhythm. He is maintaining O2 saturations in the 90s on 2 L/m per nasal cannula. He's been afebrile. Hemodynamically stable. He is status post 2 units of packed red blood cells this admission. Current hemoglobin 8.8. Platelets 175. White count 9.2. Sodium 133. Potassium 3.7. Bicarb 26. BUN 61. Creatinine 5.94. Glucose 116. Urine, blood, sputum cultures all revealed no growth. He remains on bronchodilators. Continues to work with the incentive spirometer. The patient is seen today 05/22/2023 in follow-up in the intensive care unit. Currently sitting up in a chair at the bedside. Awake and alert in no acute distress. Maintaining good O2 saturations in the 90s on room air. No IV fluids. He did receive hemodialysis yesterday with 2.8 L of fluid removed. He did have a right internal jugular hemodialysis catheter placed yesterday. Right femoral catheter was removed. Chest x-ray reveals small right pleural effusion with associated atelectasis. He is continuing to work with his incentive spirometer. Urine, blood and sputum cultures all revealed no growth. He remains on DuoNeb inhalations. Anticoagulated with Eliquis. Progress note dated 05/23/2023. The patient is seen today in room 383. He was transferred out of the intensive care unit yesterday. The patient's on room air. He's not receiving any IV fluids. The plan is for Wednesday/Wednesday/Wednesday hemodialysis. The patient did not have dialysis yesterday today. He's feeling a bit stronger day by day. Sti ll has a long way to go. White count 13.7, hemoglobin 10, hematocrit 29.2, and platelet count is normal. Sodium 133, potassium 4, chlorides 97, CO2 23, BUN 74, creatinine 6.89. Chest x-ray shows an small right pleural effusion. On today's evaluation of 05/24/2023, the patient is on room air oxygen. The patient is not having any major respiratory difficulties. The patient is using the incentive spirometer. Hemodialysis is being performed to a permacath in his right IJ. Chest x-ray from this morning shows a small amount of fluid in the right lung. His urine output is minimal at this point in time. No significant urine output and the patient remains in renal failure. No chest pain. No shortness of breath. He is postop day #11 following two-vessel bypass surgery. He also has an acute kidney injury and currently is on hemodialysis. His cardiac rhythm is sinus. Blood work from today shows a white cell count 20 with a hemoglobin of 10.2. BUN is 103 with a creatinine of 8 and a sodium level is at 132. On 05/25/2023, the patient is feeling well. Yesterday, he felt quite weak and lethargic following his hemodialysis. This morning, he seems to be slightly more awake. Denies having any chest pain. Surgery wound is dry clean and intact. The white cell count was elevated yesterday up to 20 and dropped down to 13. Chest x-ray still showing bilateral pleural effusions and pulmonary vascular congestion. He is not having any major respiratory difficulties for now. The patient underwent hemodialysis yesterday with removal of 2.5 L of fluid and irises also plan for today. No new complaints otherwise for now. The hemoglobin is at 8.9, BUN is 79 with a creatinine of 6.7 and the patient is not producing any significant urine output. Sodium level is at 132. On 05/26/2023, the patient is doing well. No specific complaints. The patient underwent hemodialysis yesterday and the patient is going to have another session of hemodialysis. He remains oliguric. Repeat chest x-ray from today shows pleural effusions bilaterally, small on the left a moderate-sized right. The patient having any signs of respiratory distress. The WBC count is 11 hemoglobin was at 5.3 and a platelet count is 206. BUN is at 61 with a creatinine of 5.9 and his sodium level is at 134. 05/27/2023, the patient is being seen for a follow-up. The patient has no specific complaints. Underwent hemodialysis yesterday and no plans for hemodialysis for today. The chest x-ray still showing a small right-sided pleural effusion. The patient is otherwise doing well. No specific complaints. He is on room air oxygen. The patient is going to go to [facility] for further rehabilitation. He is using the incentive spirometer. Medications are unchanged. The patient is on Levemir insulin. The patient on anticoagulation with Eliquis and the patient is still on amiodarone. The patient is on metoprolol 12.5 minutes to twice a day. The labs are stable. Hemogram is at 9.5. BUN is a 59 with a creatinine of 5.2 and the patient remains oliguric. Sodium level is at 135. Objective - Vital Signs Vital signs: Vital Signs Temp 98.1 F 05/27/23 07:50 Pulse 64 05/27/23 09:40 Resp 17 05/27/23 07:50 BP 138/69 05/27/23 07:50 Pulse Ox 94 L 05/27/23 07:50 FiO2 50 05/13/23 15:13 Intake & Output 05/26/23 05/27/23 05/27/23 18:59 06:59 18:59 Intake Total 1300 Output Total 2256 Balance -956 Weight 110.4 kg 110.4 kg Intake: Oral 600 Hemodialysis 700 Output: Urine 0 Hemodialysis 2256 Other: Voiding Method Urinal Urinal Urinal # Voids 0 ABP, PAP, CO, CI - Last Documented Arterial Blood Pressure 116/42 Pulmonary Artery Pressure 29/9 Cardiac Output 4.5 Cardiac Index 2.2 - Exam CONSTITUTIONAL: Appears comfortable, cooperative, no acute distress RESPIRATORY: Lungs sounds diminished bilaterally, right greater than left. Respirations even, nonlabored. Currently on room air with oxygen saturation 94%. Able to achieve 0316-0379 mL on incentive spirometry. Strong non- productive cough. CARDIOVASCULAR: S1, S2 present. Regular rate and rhythm, sinus rhythm on telemetry. Sternum stable. Palpable peripheral pulses bilaterally. Generalized edema present. No calf pain or tenderness noted. Heart hugger, antiembolism stockings, SCDs present. GASTROINTESTINAL: Abdomen soft, nontender, nondistended, obese. Active bowel sounds present 4 quadrants. Tolerating diet. Positive bowel movement 05/25 GENITOURINARY: No further urine output, receiving HD INTEGUMENTARY: Skin is warm and dry. Anterior chest incision well approximated. Right lower extremity EVH site well approximated without redness or drainage. NEUROLOGIC: Cranial nerves II through XII intact MUSKULOSKELETAL: Able to move all extremities, strength equal bilaterally PSYCHIATRIC: Alert and oriented to person, place, year and situation INVASIVE LINES AND TUBES: Right chest PermCath present - Labs CBC & Chem 7: 05/27/23 07:22 05/27/23 07:22 Labs: Abnormal Lab Results - Last 24 Hours (Table) 05/26/23 05/26/23 05/27/23 Range/Units 16:30 19:56 07:22 WBC 11.6 H (3.8-10.6) k/uL RBC 2.95 L (4.30-5.90) m/uL Hgb 9.5 L (13.0-17.5) gm/dL Hct 28.7 L (39.0-53.0) % Sodium (137-145) mmol/L BUN (9-20) mg/dL Creatinine (0.66-1.25) mg/dL POC Glucose (mg/dL) 113 H 143 H (70-110) mg/dL Calcium (8.4-10.2) mg/dL 05/27/23 05/27/23 Range/Units 07:22 11:20 WBC (3.8-10.6) k/uL RBC (4.30-5.90) m/uL Hgb (13.0-17.5) gm/dL Hct (39.0-53.0) % Sodium 135 L (137-145) mmol/L BUN 59 H (9-20) mg/dL Creatinine 5.21 H (0.66-1.25) mg/dL POC Glucose (mg/dL) 123 H (70-110) mg/dL Calcium 8.0 L (8.4-10.2) mg/dL Assessment and Plan Plan: Coronary artery disease status post off-pump coronary artery bypass grafting 2 with a left internal thoracic artery to the left anterior descending artery, saphenous vein graft from the aorta to the posterior descending artery. Left atrial appendage ligation. Postoperative day # 14 Acute kidney injury requiring hemodialysis. The patient is having daily dialysis, the last session of hemodialysis was done yesterday. Bilateral pleural effusion small on the left, the site of the right , post thoracotomy and cardiac surgery, status continues to improve with dialysis. The patient's last chest x-ray was from today and the patient continues to have a small right-sided pleural effusion. History of chronic kidney disease, stage IV. Ischemic cardiomyopathy with ejection fraction 40-45%. History of pulmonary embolism previously on Eliquis. Diabetes mellitus. Hypertension. CVA. BPH. Hyperlipidemia. Previous COVID-19 infection. Plan: Continue hemodialysis per nephrology, last session was done yesterday no plan for hemodialysis for today. Respiratory status is stable and the patient is currently on room air oxygen The patient continues to have some pleural effusion bilaterally, chest x-ray findings of essentially stable. Continue use of incentive spirometer Continue hemodialysis per nephrology Monitor the white cell count which is improved compared to yesterday Continue aspirin Continue amiodarone Continue Eliquis Continue metoprolol 12.5 mg by mouth twice a day Midodrine for hypotension Bicarb supplements We'll follow Subacute rehabilitation at [facility].
--- NOTE | 2023-05-27 14:58 | P.PN ---
Subjective Progress Note Date: 05/27/23 Mr Birmingham is a 68 y/o right handed male who lives with his in a single story home with 2 JANAK. He was independent prior to admission with mobility and ADLs. He drives. His is supportive, and daughter that is able to assist when she is not working. Both patient and are retired. Patient has a known history of coronary artery disease, hypertension, hyperlipidemia, diabetes mellitus, benign prostatic hyperplasia, pulmonary embolism anticoagulated with Eliquis. He also has a history of COVID-19 infection and subsequent CVA felt to be secondary to hypercoagulability. In March 2023, he had a cardiac catheterization that revealed a chronic total occlusion of the right coronary artery which fills by collaterals circulation, chronic total occlusion of the mid LAD by the bifurcation of the large diagonal branch with flush occlusion. He was recommended coronary artery bypass grafting. Echocardiogram revealed moderate LV dysfunction with ejection fraction of 40- 45%. He was brought in May 13 for an elective CABG. He had undergone an off-pump coronary artery bypass grafting 2 with the left internal thoracic artery to the left anterior descending artery, saphenous vein graft from the aorta to the posterior descending artery, Left atrial appendage ligation with a 35mm Atriclip with Dr Claudine Noland. He was moved postoperatively in the intensive care unit, were he was able to be extubated. He developed a slight fever on 05/16 and his Cr was elevated. Diagnosed with acute on chronic kidney disease. He was seen by nephrology and a temporary catheter was placed for dialysis. On 05/18/23 a neurology consult was placed due to AMS. Patient has completed 2 hours of hemodialysis and about 30 minutes was left in completion of hemodialysis when he developed mental status change. He was unresponsive. No seizure-like activity was witnessed. Patient was very confused, did not know his or his daughter and grandson. Patient became hypotensive with blood pressure running around 80/40, and he was very obtunded. Patient was started on Levophed. Patient also developed atrial fibrillation with rapid ventricular rate. Patient's blood test shows normal WBC, hemoglobin 7.7, platelets are 130. ABG with pH of 7.39, pCO2 34, pO2 74 and saturation 95.7%. Sodium 135 potassium 3.5, BUN 50, creatinine 6.50. AST 255, ALT 19. TFTs normal. UA shows moderate amount of leukocyte Estrace, 131 WBC, none bacteria. Urine cultures negative. CT head revealed no acute intracranial process per nonspecific white matter changes, likely secondary to chronic small vessel ischemic disease. EEG was abnormal due to background slowing of mild to moderate degree, suggestive of encephalopathy. No epileptiform activity was seen. Neurology ordered an MRI of the brain which was later discontinued as the surgical team did not feel it would change the outcomes. Patient had improvements in his cognition. PM&R consulted for rehab recommendations. Patient has been seen by therapies; m ost recently (05/20) needing total assist with bathing, UB dressing mod assist, LB dressing total assist, grooming mod assist. 05/24/23: Patient states he is doing ok, but feeling weak. He overall feels better than a couple of days ago. He denies CP and abdominal pain. He admits to SOB with endurance, denies SOB at rest. He has no complaints of pain. Of note, his WBCs increased to 20k today from 13k yesterday without clear etiology. LBM this morning. He is oliguric. He denies issues with swallowing. Discussed rehab options with patient, he is interested in IPR. Reviewed patient's records 05/25/23, patients WBC 13k today, afebrile. 05/27/23: Patient doing well today. Feeling better every day. He believes he has dialysis tomorrow. He denies CP, SOB, and abdominal pain. He had a BM this morn ing, now producing a small amount of urine. His pain is controlled. He is looking forward to getting to IPR. Reviewed case management notes, patient's case went to peer to peer which was done by [employer] [employer] at [facility], insurance requested additional records. Reviewed patient's labs, WBC improved now 11.6, Hgb 9.5. Therapy notes reviewed; mod assist with bathing and toileting, UB dressing min assist,LB dressing max assist, transfers and gait 40 ft min assist. Patient is a great IPR candidate and will be able to successfully return home. Objective - Vital Signs Vital signs: Vital Signs Temp 98.1 F 05/27/23 12:00 Pulse 60 05/27/23 12:10 Resp 16 05/27/23 12:00 BP 126/71 05/27/23 12:00 Pulse Ox 96 05/27/23 12:00 FiO2 50 05/13/23 15:13 Intake & Output 05/26/23 05/27/23 05/27/23 18:59 06:59 18:59 Intake Total 1300 Output Total 2256 Balance -956 Weight 110.4 kg 110.4 kg Intake: Oral 600 Hemodialysis 700 Output: Urine 0 Hemodialysis 2256 Other: Voiding Method Urinal Urinal Urinal # Voids 0 ABP, PAP, CO, CI - Last Documented Arterial Blood Pressure 116/42 Pulmonary Artery Pressure 29/9 Cardiac Output 4.5 Cardiac Index 2.2 - Exam General: WDWN, obese male, reclined in chair, eating lunch Head: Normocephalic, atraumatic. Eyes: Symmetric, wearing glasses Ears: Symmetric. Hearing within normal limits. Mouth: Clear. Neck: Supple. Cardiac: manager fraud on, heart hugger on, Calves supple, non tender, SCDs on, R > L LE edema, UE edema- primarily distal Lungs: Breathing comfortably on RA. Chest symmetric. Abdomen: Soft, rounded, nontender. Extremities: Arthritic changes consistent with age. Neurological: Alert and oriented x 4 Speech is clear and fluent without paraphasic errors Sensation: Intact and symmetrical limbs. Musculoskeletal: ROM WFL EXCEPT: sternal precautions, Proximal greater than distal weakness MMT UE Sh Abd EE EF HG Right 4 4 4+ 5 Left 4 4 4+ 5 MMT LE HF KE DF EHL Right 4 5 5 5 Left 4 5 5 5 Skin: Skin intact where visible to head, neck, and bilateral upper and lower extremities EXCEPT: sternal incision with clear tape dressing, puncture sites from drains not appreciated today, right sided chest dialysis catheter, right LE incisions with mild erythema, glued Psych: Calm, cooperative - Labs CBC & Chem 7: 05/27/23 07:22 05/27/23 07:22 Labs: Abnormal Lab Results - Last 24 Hours (Table) 05/26/23 05/26/23 05/27/23 Range/Units 16:30 19:56 07:22 WBC 11.6 H (3.8-10.6) k/uL RBC 2.95 L (4.30-5.90) m/uL Hgb 9.5 L (13.0-17.5) gm/dL Hct 28.7 L (39.0-53.0) % Sodium (137-145) mmol/L BUN (9-20) mg/dL Creatinine (0.66-1.25) mg/dL POC Glucose (mg/dL) 113 H 143 H (70-110) mg/dL Calcium (8.4-10.2) mg/dL 05/27/23 05/27/23 Range/Units 07:22 11:20 WBC (3.8-10.6) k/uL RBC (4.30-5.90) m/uL Hgb (13.0-17.5) gm/dL Hct (39.0-53.0) % Sodium 135 L (137-145) mmol/L BUN 59 H (9-20) mg/dL Creatinine 5.21 H (0.66-1.25) mg/dL POC Glucose (mg/dL) 123 H (70-110) mg/dL Calcium 8.0 L (8.4-10.2) mg/dL Assessment and Plan Assessment: # 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 Left atrial appendage ligation -sternal precautions, no heavy lifting #AMS, thought to be metabolic encephalopathy -no seizure activity on EEG # Acute Leukocytosis -05/24/23 Patient with WBC 20, up from 13 k yesterday. Recommending work up, afebrile -05/25/23 patient's WBC improved to 13k -05/27/23 WBC improved to 11.6 # Acute on chronic kidney injury requiring Dialysis -05/24/23 Dialysis today, nephrology following, Cr 8.07 #Paroxysmal atrial fibrillation with RVR -cardio following # Ischemic cardiomyopathy with ejection fraction 40-45% # Diabetes mellitus with PPN # History of CVA -affected vision per records, patient declines deficits # History of PE -on eliquis # Bowel/ Bladder: Nursing to monitor and report concerns if any. -05/24/23 patient reports he is anuric # Diet- Carb consistent, heart healthy # Skin/wound: Skin/Wound care to follow as needed -sternal surgical sites # Pain Management-Tylenol prn # DVT Prophylaxis: Eliquis # Comorbidities:Hypertension, BPH, HLD, Previous COVID-19 infection, CAD # Your medical dx and mgt Goals: Modified Independent mobility and ADLS both basic and advanced; increased functional mobility/strength; increased balance, safety, endurance. Improvement in medical issues through your care. Barriers: endurance, cardiac precautions Discharge recommendation: Highly recommending IPR for this patient. He has made improvements and will continue to make fast gains while on IPR. He is motivated, has good support and will be able to be discharged back to the community.
[2023-05-27 16:12] LABS: Glucose,Whole Blood 122 mg/dL (70-110)
[2023-05-27 20:04] LABS: Glucose,Whole Blood 147 mg/dL (70-110)
[2023-05-28 05:56] LABS: Glucose,Whole Blood 88 mg/dL (70-110)
[2023-05-28] MEDS: INSULIN ASPART (NovoLOG) 100 UNIT/ML VIAL SQ SCH ×7 (06:01→20:35)
[2023-05-28] MEDS: INSULIN DETEMIR (LEVEMIR) 100 UNIT/ML SYR SQ SCH ×2 (06:18→21:58)
[2023-05-28] MEDS: PANTOPRAZOLE 40 MG TABLET PO SCH (06:18)
--- NOTE | 2023-05-28 08:16 | P.PN ---
Subjective Progress Note Date: 05/28/23 Principal diagnosis: Two-vessel coronary artery disease. Past medical history significant for nonischemic cardiomyopathy with an ejection fraction of 25-30% which improved to an ejection fraction of 45-50% with intense medical therapy, history of left ventricular thrombus on transthoracic 2-D echocardiogram completed on 05/23/2023 which was organized and did did not appear acute, history of pulmonary embolus on eliquis on an outpatient basis, hypertension, diabetes mellitus, history of CVA with some residual right-sided weakness, COVID-19 infection in early 2021, acute on chronic kidney disease with a baseline creatinine of 2.0, and prostate disorder. POD #15 Off pump coronary artery bypass grafting x 2. Left internal thoracic artery (in-situ) to left anterior descending artery, saphenous vein from aorta to posterior descending artery, Endoscopic right greater saphenous vein harvest, Left atrial appendage ligation using 35mm AtriClip, Graft flow measurements using the [employer] flow meter system, and an intraoperative transesophageal echocardiogram performed by anesthesia. Postoperative acute blood loss anemia and thrombocytopenia, expected given hemodilution. Intra and postoperative hypotension, unexpected Acute kidney injury, likely secondary to hypoperfusion and history of chronic kidney disease with a baseline creatinine of 2.0, status post placement of temporary hemodialysis catheter, and status post permacath placement with removal of right groin hemodialysis catheter. Mental status change, unsure of eitiology, likely metabolic encephalopathy vs new stroke, resolved Leukocytosis, unknown origin, remains afebrile, all cultures remained negative Medical debility The patient was seen and examined in follow-up today 05/28/2023 at his bedside on the cardiac stepdown unit. Currently sitting up to the bedside chair, eating his breakfast, is awake, alert, oriented 3 and in no acute apparent distress. Denies any complaints of pain or shortness of breath at this time, although reports some shortness of breath with walking. He reports he ambulated in the cardiac stepdown unit hallway yesterday around 4 times with assistance from physical/occupational therapy, nursing and family. Remote telemetry showing normal sinus rhythm heart rate 66 BPM. He's been afebrile the last 24 hours. Chest x-ray was reviewed, continues to show a small right pleural effusion. He is scheduled for hemodialysis today. The patient reports that he did urinate a small amount of urine this morning. Laboratory results remain pending. According to the case making machine operator he has been denied for inpatient rehab. Objective - Vital Signs Vital signs: Vital Signs Temp 97.9 F 05/28/23 04:00 Pulse 57 L 05/28/23 04:00 Resp 16 05/28/23 04:00 BP 121/60 05/28/23 04:00 Pulse Ox 96 05/28/23 04:00 FiO2 50 05/13/23 15:13 Intake & Output 05/27/23 05/28/23 05/28/23 18:59 06:59 18:59 Intake Total 240 400 Balance 240 400 Weight 110.4 kg 109.9 kg Intake: Oral 240 400 Other: Voiding Method Urinal Urinal # Voids 1 # Bowel Movements 1 ABP, PAP, CO, CI - Last Documented Arterial Blood Pressure 116/42 Pulmonary Artery Pressure 29/9 Cardiac Output 4.5 Cardiac Index 2.2 - Exam CONSTITUTIONAL: Sitting up to the bedside chair on the cardiac stepdown unit, a ppears comfortable, cooperative, no apparent acute distress, generalized weakness. HEENT: Neck is supple, no JVD, no lymphadenopathy. RESPIRATORY: Lungs sounds essentially clear throughout, diminished to his bilateral bases, right greater than left. Respirations are symmetrical and nonlabored. Currently on room air with oxygen saturations 96%. Able to achieve 1790-7510 mL on his incentive spirometry. Strong cough. CARDIOVASCULAR: Regular rhythm and rate. S1 and S2 present, negative for S3, gallop or murmur. Sternum is stable. Palpable peripheral pulses bilaterally, 1+ generalized edema. No calf pain or tenderness noted. Heart hugger in place. Knee-high GENNY hose and sequential compression devices in place to his bilateral lower extremities. GASTROINTESTINAL: Abdomen soft, nontender, nondistended. Active bowel sounds present 4 quadrants. Tolerating diet. Passing flatus. No guarding or rigidity. Bowel movement on 05/28/2023. GENITOURINARY: Hemodialysis 05/26/2023 with 2000 mL dialyzed. Small amount of urine output this morning. Right upper chest hemodialysis permacath in place. INTEGUMENTARY: Skin is warm and dry with no evidence of clubbing or cyanosis. Midline sternal incision clean dry and well approximated, covered with dry intact dressing. Right lower extremity EVH sites well approximated without redness or drainage. NEUROLOGIC: Cranial nerves II through XII intact. No Focal deficits. MUSKULOSKELETAL: Able to move all extremities, strength equal bilaterally, generalized weakness. Chronic right-sided weakness form previous CVA. PSYCHIATRIC: Alert, oriented 3 to person, place, and time. - Allied health notes Allied health notes reviewed: nursing - Labs CBC & Chem 7: 05/27/23 07:22 05/27/23 07:22 Labs: Abnormal Lab Results - Last 24 Hours (Table) 05/27/23 05/27/23 05/27/23 Range/Units 07:22 07:22 11:20 WBC 11.6 H (3.8-10.6) k/uL RBC 2.95 L (4.30-5.90) m/uL Hgb 9.5 L (13.0-17.5) gm/dL Hct 28.7 L (39.0-53.0) % Sodium 135 L (137-145) mmol/L BUN 59 H (9-20) mg/dL Creatinine 5.21 H (0.66-1.25) mg/dL POC Glucose (mg/dL) 123 H (70-110) mg/dL Calcium 8.0 L (8.4-10.2) mg/dL 05/27/23 05/27/23 Range/Units 16:08 20:01 WBC (3.8-10.6) k/uL RBC (4.30-5.90) m/uL Hgb (13.0-17.5) gm/dL Hct (39.0-53.0) % Sodium (137-145) mmol/L BUN (9-20) mg/dL Creatinine (0.66-1.25) mg/dL POC Glucose (mg/dL) 122 H 147 H (70-110) mg/dL Calcium (8.4-10.2) mg/dL - Imaging and Cardiology Chest x-ray: report reviewed, image reviewed Assessment and Plan Assessment: Two-vessel coronary artery disease, status post off pump 2 vessel coronary artery bypass grafting surgery Nonischemic cardiomyopathy with an EF of 45-50% History of left ventricular thrombus on transthoracic 2-D echocardiogram on 05/23/2023 which was organized and did not appear to be acute History of pulmonary embolus on eliquis on an outpatient basis History of hypertension Diabetes mellitus, with a preoperative hemoglobin A1c 7.4% History of CVA with some residual right-sided weakness COVID-19 infection in early 2021 Chronic kidney disease stage IV with a baseline creatinine of 2.0 Prostate disorder Postoperative acute blood loss anemia and thrombocytopenia, expected given hemodilution Intraoperative and Postoperative hypotension, unexpected Acute kidney injury, hemodynamic ATN with borderline urine output, likely secondary to hypoperfusion, status post temporary hemodialysis catheter placement Paroxysmal atrial fibrillation, status post ligation of left atrial appendage, currently in sinus rhythm Mental status change, unsure of eitiology, likely metabolic encephalopathy vs new stroke, resolved Leukocytosis, unclear etiology, afebrile, cultures negative Medical debility Plan: Continue to maximize medical therapy with low dose aspirin, statin, and beta keara with hold parameters. Continue amiodarone for atrial fibrillation prophylaxis, continue Eliquis. Encourage incentive spirometry use 10 times every hour while awake. Bronchodilators per pulmonology. Will monitor daily labs and chest x-rays. Electrolyte replacement per protocol. GI/DVT prophylaxis. Increase activity as tolerated. PT/OT/cardiac rehab following. Pain control with current medication regimen. No Toradol due to kidney disease. Insulin management per internal medicine service, patient's preoperative hemoglobin A1c was 7.4%. Patient needs tight glucose control to promote of sternal wound healing. Daily weights. Continue record strict inaccurate I's and O's. Patient is to shower daily. Hemodialysis recommendations per nephrology. Scheduled for hemodialysis today. Discharge planning is in place, waiting on appeal to insurance company for inpatient rehab. More recommendations to follow based on patient's clinical course. Time with Patient: Greater than 30
[2023-05-28 08:30] LABS: Basophils # (A) 0.1 k/uL (0-0.2); Basophils % (A) 1 %; Eosinophils # (A) 0.7 k/uL (0-0.7); Eosinophils % (A) 6 %; HCT 29.2 % (39.0-53.0); HGB 9.5 gm/dL (13.0-17.5); Hypochromasia Slight; Lymphocytes # (A) 1.5 k/uL (1.0-4.8); Lymphocytes % (A) 12 %; MCH 31.6 pg (25.0-35.0); MCHC 32.7 g/dL (31.0-37.0); MCV 96.8 fL (80.0-100.0); Mean Platelet Volume 7.8; Monocytes # (A) 0.7 k/uL (0-1.0); Monocytes % (A) 5 %; Neutrophils # (A) 9.4 k/uL (1.3-7.7); Neutrophils % (A) 76 %; Platelet Count 265 k/uL (150-450); RBC 3.02 m/uL (4.30-5.90); RDW 14.9 % (11.5-15.5); WBC 12.4 k/uL (3.8-10.6)
[2023-05-28 08:44] LABS: ALT 31 U/L (4-49); AST 55 U/L (17-59); African American GFR (CKD) 8 (>60 ml/min/1.73 sqM); Albumin 3.1 g/dL (3.5-5.0); Alkaline Phosphatase 106 U/L (38-126); Anion Gap 13 mmol/L; Blood Urea Nitrogen 82 mg/dL (9-20); Calcium 8.3 mg/dL (8.4-10.2); Carbon Dioxide 24 mmol/L (22-30); Chloride 97 mmol/L (98-107); Glucose 74 mg/dL (74-99); Magnesium 2.3 mg/dL (1.6-2.3); Non-African American GFR(CKD) 7 (>60 ml/min/1.73 sqM); Potassium 4.6 mmol/L (3.5-5.1); Sodium 134 mmol/L (137-145); Total Bilirubin 0.8 mg/dL (0.2-1.3); Total Protein 6.1 g/dL (6.3-8.2)
--- NOTE | 2023-05-28 08:52 | XR ---
EXAMINATION TYPE: XR chest 1V portable DATE OF EXAM: 05/28/2023 COMPARISON: 05/27/2023 HISTORY: Postop CABG TECHNIQUE: Single frontal view of the chest is obtained. FINDINGS: There is bilateral consolidation and small effusion. There is postsurgical change. Cardiom egaly seen and there is a right-sided dialysis catheter tip overlying the SVC. No pneumothorax. IMPRESSION: 1. Bilateral infiltrate and small effusion.
[2023-05-28] MEDS: IPRATROPIUM-ALBUTEROL 3 ML NEB INHALATION SCH ×4 (09:12→21:34)
[2023-05-28] MEDS: APIXABAN 2.5 MG TABLET PO SCH ×2 (09:45→20:34)
--- NOTE | 2023-05-28 10:39 | US ---
EXAMINATION TYPE: US chest DATE OF EXAM: 05/28/2023 COMPARISON: NONE CLINICAL INDICATION: Male, 68 years old with history of Right pleural effusion; rt pleural effusion TECHNIQUE: Targeted ultrasound of the posterior lower right hemithorax EXAM MEASUREMENTS: Right Pleural Effusion pocket size: 4.5 cm Right skin surface to fluid distance: 3.7 cm Right side marked for possible thoracentesis outside the dept. Pulmonologists are able to review the images in the patient?s EMR. Pocket size measures up to 10cm but has lung tissue within, pocket distance mesured to lung tissue IMPRESSIONS: Right pleural effusion.
[2023-05-28 11:27] LABS: Glucose,Whole Blood 94 mg/dL (70-110)
[2023-05-28] MEDS ORDERED: APIXABAN 2.5 MG TABLET PO ONE (11:41)
--- NOTE | 2023-05-28 12:49 | P.PN ---
Subjective Progress Note Date: 05/28/23 68 years old male with past medical history of Diabetes Mellitus, Hypertension, hyperlipidemia, benign prostatic hypertrophy, pulmonary embolism on blood thinner He was admitted for coronary artery disease affecting mainly to vessels and underwent coronary artery bypass surgery yesterday and he was on mechanical ventilation for a short lived time, eventually he got extubated. Comfortable in bed with no chest pain or dyspnea. Hemodynamically stable. Patient has mild worsening of creatinine 2.8, 1.3 yesterday 05/15/2023 Fascia temo bed comfortably with no complaints. Blood pressure still borderline . We will see improvement on 15. Creatinine up to 4.0. Nephrology was consulted. Patient is status post bolus of 500 mL of normal saline. His urine analysis is abnormal. Urine culture is negative. Bladder scan is negative. We don't a repeat urine culture Patient remains on aspirin Plavix and midodrine by surgery team 05/16/23 pt is awake alert with no dyspnea, no chest pain ,he denies any specific complaints but his renal function keep worsening and today his creatinine went up to 5.4, he was lasix drip at 20 mg per hour, pt is mostly will need hemodialysis per nephrology team pt is on dobutamine with poor urine output. pt has mild leukocytosis sugar is more 300 so increased levemir to 5 u bid and novolog 5 u tid ac pt is on bicarb drip as well kept on asprin and plavix , and midodrine 05/17/2023 Patient remains in ICU closely monitored case/critical care team, the primary ca rdiothoracic surgery team and horizontal drill operator as well as automated process operator. He is status post bypass surgery and today is postoperative day #4. Creatinine is elevated up to 7.3 today. He is getting treatment for hemodialysis started here in the ICU from. His Lasix drip and backup as well He remains on dopamine drip Blood pressure is borderline with systolic blood pressure is stable around 90s t o 100. Hemoglobin 7.7, WBC within the reference range today 9000. Glucose was elevated more than 300 despite doubling the dose of Levemir last night to 5 mg twice a day. Therefore he was started on insulin drip This was discussed with patient in the thoracic primary team 05/18/2023 Patient is very lethargic and tired looking today. Open eyes to verbal stimuli and answer questions. He follows commands. Because of his change mentation neurologist has been consulted from a most likely patient will require MRI of the brain and EEG to rule out intracranial lesions or seizure activities. Blood pressure was controlled Labs reviewed Patient remains on insulin drip, dopamine drip and IV vancomycin 05/19/2023 Patient in the ICU, severely weak and lethargic and somewhat drowsy. He's undergoing hemodialysis and creatinine is elevated. Vitals are the same. Hemoglobin 7.7. He is on aspirin 81 mg Plavix and Protonix. I going to stop the insulin drip and start Levemir insulin and go up gradually with insulin sliding scale 05/24/2023 Patient was seen appropriate 3, is lying in the recliner comfortable, relaxed a pleasant. He denies any specific complaints. No chest pain dyspnea or other n ew complaint. He is hemodynamically stable. Stable and improving except for leukocytosis to 20,000. Patient currently sugar is controlled around 200 with Levemir 10 units twice a day. Metformin admission was because of persistent infection. B12 1355 which is elevated patient may benefit from rehab upon discharge 05/25/2023 Patient awake and alert, no chest pain, no dyspnea gets a breathing treatment. No new complaints. Vitals are stable. Hemoglobin 8.9, WBC 13,000, creatinine 6.5. Glucose control. Chest x-ray showing CHF but stable Patient remains on Eliquis and baby aspirin. Also he is on IV Lasix 40 mg twice daily. 05/26/2023 Patient lying in his chair comfortable denies any chest pain or dyspnea. He denies any other new complaint He is hemodynamically stable Labs are reviewed and his hemoglobin 9.3, WBC 11.1. Creatinine 5.9, sugar controlled. Chest x-ray showed bilateral pleural effusion and atelectasis, small Patient remains on eliquis 2.5 mg, IV Lasix 40 mg twice daily and aspirin 81 mg 05/27 patient seen and evaluated bedside, blood glucose better controlled. Denies shortness of breath or chest pain 05/28 : Patient seen and evaluated bedside, blood glucose under control receiving hemodialysis patient asymptomatic denies chest pain shortness of breath minimal urine output Objective - Vital Signs Vital signs: Vital Signs Temp 98.1 F 05/28/23 08:00 Pulse 59 L 05/28/23 12:00 Resp 18 05/28/23 12:00 BP 117/75 05/28/23 12:00 Pulse Ox 96 05/28/23 12:00 FiO2 50 05/13/23 15:13 Intake & Output 05/27/23 05/28/23 05/28/23 18:59 06:59 18:59 Intake Total 240 400 Balance 240 400 Weight 110.4 kg 109.9 kg Intake: Oral 240 400 Other: Voiding Method Urinal Urinal Urinal # Voids 1 # Bowel Movements 1 ABP, PAP, CO, CI - Last Documented Arterial Blood Pressure 116/42 Pulmonary Artery Pressure 29/9 Cardiac Output 4.5 Cardiac Index 2.2 - Exam PHYSICAL EXAMINATION: not in any acute distress. Well developed, well nourished. HEENT: Pupils are round and equally reacting to light. EOMI. No scleral icterus. No conjunctival pallor. Normocephalic, atraumatic. No pharyngeal erythema. No thyromegaly. CARDIOVASCULAR: Status post CABG, chest brace in place.. PULMONARY: Chest is clear to auscultation, no wheezing or crackles. ABDOMEN: Soft, nontender, nondistended, normoactive bowel sounds. No palpable organomegaly. MUSCULOSKELETAL: No joint swelling or deformity. EXTREMITIES: No cyanosis, clubbing, or pedal edema. NEUROLOGICAL: Gross neurological examination did not reveal any focal deficits. - Labs CBC & Chem 7: 05/28/23 07:30 05/28/23 07:30 Labs: Abnormal Lab Results - Last 24 Hours (Table) 05/27/23 05/27/23 05/28/23 Range/Units 16:08 20:01 07:30 WBC 12.4 H (3.8-10.6) k/uL RBC 3.02 L (4.30-5.90) m/uL Hgb 9.5 L (13.0-17.5) gm/dL Hct 29.2 L (39.0-53.0) % Neutrophils # 9.4 H (1.3-7.7) k/uL Sodium (137-145) mmol/L Chloride (98-107) mmol/L BUN (9-20) mg/dL Creatinine (0.66-1.25) mg/dL POC Glucose (mg/dL) 122 H 147 H (70-110) mg/dL Calcium (8.4-10.2) mg/dL Total Protein (6.3-8.2) g/dL Albumin (3.5-5.0) g/dL 05/28/23 Range/Units 07:30 WBC (3.8-10.6) k/uL RBC (4.30-5.90) m/uL Hgb (13.0-17.5) gm/dL Hct (39.0-53.0) % Neutrophils # (1.3-7.7) k/uL Sodium 134 L (137-145) mmol/L Chloride 97 L (98-107) mmol/L BUN 82 H (9-20) mg/dL Creatinine 7.38 H* (0.66-1.25) mg/dL POC Glucose (mg/dL) (70-110) mg/dL Calcium 8.3 L (8.4-10.2) mg/dL Total Protein 6.1 L (6.3-8.2) g/dL Albumin 3.1 L (3.5-5.0) g/dL Assessment and Plan Assessment: Assessment and plan Coronary artery disease status post CABG surgery on 05/13 Ischemic cardiomyopathy Acute kidney injury on chronic kidney disease stage III. Requiring hemodialysis Acute metabolic encephalopathy Cardiomyopathy with ejection fraction 40-45% Diabetes mellitus History of Hypertension Hyperlipidemia History of pulmonary embolism on Eliquis * Continue current management including aspirin, Eliquis, metoprolol, amiodarone * Continue patient on Lantus and correctional insulin>> blood glucose ranging between 140s to 80s * Nephrology following secondary to initiation of hemodialysis, last session hemodialysis 05/28 * Metabolic encephalopathy has improved patient is alert to person and situation * cardiothoracic surgery primary, pulmonary, cardiology, nephrology
--- NOTE | 2023-05-28 12:58 | P.PN ---
Subjective Progress Note Date: 05/28/23 The patient is seen today 05/19/2023 in follow-up in the intensive care unit. He is currently sitting up in bed. Awake, alert, confused, slow to respond. Weak. EEG reveals background slowing of mild to moderate degree suggestive of encephalopathy. Continues to maintain good O2 saturations in the 90s on 3 L/m per nasal cannula. Ultrasound of the chest revealed no significant fluid for thoracentesis. He is receiving hemodialysis today. Yesterday they removed 500 ML's and hoping for thousand today. He is on norepinephrine at 0.02 mcg/kg/m. 0.9 normal saline at 20 ML's per hour. Insulin drip currently on hold. He is on antibiotics in the form of vancomycin and cefepime. He remains on bro nchodilators. Working with the incentive spirometer. Continued on oral amiodarone. Anticoagulated with Eliquis. He is status post 2 units of packed red blood cells this admission. Current hemoglobin 7.7. Platelets 147. White count 8.4. Sodium 134. Potassium 3.9. Bicarb 34. BUN 36. Creatinine 5.26. Glucose 155. AST 257. ALT 43. The patient is seen today 05/20/2023 in follow-up in the intensive care unit. He is currently up in a chair at the bedside. Awake and alert in no acute d istress. He remains afebrile. He is down to 2 L nasal cannula and maintaining O2 saturations in the 90s. Currently in sinus rhythm. Chest x-ray showing some atelectasis of the right lower lobe. Encouraged increased use the incentive spirometer. Left pleural chest tube remains in place. He did receive hemodialysis yesterday with 2 L of fluid removed. His norepinephrine has been off since 6:30 this morning. He is continued on vancomycin and cefepime. Cultures are revealing no growth. He is status post 2 units of packed red blood cells this admission. Current hemoglobin 8.7. Platelets 151. White count 9.2. Sodium 134. Potassium 3.8. Bicarb 26. BUN 40. Creatinine 4.55. Glucose 203. AST 207. ALT 28. Cortisol 28. He remains on DuoNeb inhalations. The patient is seen today 05/21/2020 in the intensive care unit. Distress. Plan is for hemodialysis with a goal of 3 L to be removed today. He is also to have a permacath placed. He'll be on a Wednesday schedule for his dialysis treatments. Chest x-ray shows improving aeration of the right lower lobe. Left pleural chest tube has been removed. No evidence of pneumothorax. He is remaining in sinus rhythm. He is maintaining O2 saturations in the 90s on 2 L/m per nasal cannula. He's been afebrile. Hemodynamically stable. He is status post 2 units of packed red blood cells this admission. Current hemoglobin 8.8. Platelets 175. White count 9.2. Sodium 133. Potassium 3.7. Bicarb 26. BUN 61. Creatinine 5.94. Glucose 116. Urine, blood, sputum cultures all revealed no growth. He remains on bronchodilators. Continues to work with the incentive spirometer. The patient is seen today 05/22/2023 in follow-up in the intensive care unit. Currently sitting up in a chair at the bedside. Awake and alert in no acute distress. Maintaining good O2 saturations in the 90s on room air. No IV fluids. He did receive hemodialysis yesterday with 2.8 L of fluid removed. He did have a right internal jugular hemodialysis catheter placed yesterday. Right femoral catheter was removed. Chest x-ray reveals small right pleural effusion with associated atelectasis. He is continuing to work with his incentive spirometer. Urine, blood and sputum cultures all revealed no growth. He remains on DuoNeb inhalations. Anticoagulated with Eliquis. Progress note dated 05/23/2023. The patient is seen today in room 383. He was transferred out of the intensive care unit yesterday. The patient's on room air. He's not receiving any IV fluids. The plan is for Wednesday/Wednesday/Wednesday hemodialysis. The patient did not have dialysis yesterday today. He's feeling a bit stronger day by day. Sti ll has a long way to go. White count 13.7, hemoglobin 10, hematocrit 29.2, and platelet count is normal. Sodium 133, potassium 4, chlorides 97, CO2 23, BUN 74, creatinine 6.89. Chest x-ray shows an small right pleural effusion. On today's evaluation of 05/24/2023, the patient is on room air oxygen. The patient is not having any major respiratory difficulties. The patient is using the incentive spirometer. Hemodialysis is being performed to a permacath in his right IJ. Chest x-ray from this morning shows a small amount of fluid in the right lung. His urine output is minimal at this point in time. No significant urine output and the patient remains in renal failure. No chest pain. No shortness of breath. He is postop day #11 following two-vessel bypass surgery. He also has an acute kidney injury and currently is on hemodialysis. His cardiac rhythm is sinus. Blood work from today shows a white cell count 20 with a hemoglobin of 10.2. BUN is 103 with a creatinine of 8 and a sodium level is at 132. On 05/25/2023, the patient is feeling well. Yesterday, he felt quite weak and lethargic following his hemodialysis. This morning, he seems to be slightly more awake. Denies having any chest pain. Surgery wound is dry clean and intact. The white cell count was elevated yesterday up to 20 and dropped down to 13. Chest x-ray still showing bilateral pleural effusions and pulmonary vascular congestion. He is not having any major respiratory difficulties for now. The patient underwent hemodialysis yesterday with removal of 2.5 L of fluid and irises also plan for today. No new complaints otherwise for now. The hemoglobin is at 8.9, BUN is 79 with a creatinine of 6.7 and the patient is not producing any significant urine output. Sodium level is at 132. On 05/26/2023, the patient is doing well. No specific complaints. The patient underwent hemodialysis yesterday and the patient is going to have another session of hemodialysis. He remains oliguric. Repeat chest x-ray from today shows pleural effusions bilaterally, small on the left a moderate-sized right. The patient having any signs of respiratory distress. The WBC count is 11 hemoglobin was at 5.3 and a platelet count is 206. BUN is at 61 with a creatinine of 5.9 and his sodium level is at 134. 05/27/2023, the patient is being seen for a follow-up. The patient has no specific complaints. Underwent hemodialysis yesterday and no plans for hemodialysis for today. The chest x-ray still showing a small right-sided pleural effusion. The patient is otherwise doing well. No specific complaints. He is on room air oxygen. The patient is going to go to [facility] for further rehabilitation. He is using the incentive spirometer. Medications are unchanged. The patient is on Levemir insulin. The patient on anticoagulation with Eliquis and the patient is still on amiodarone. The patient is on metoprolol 12.5 minutes to twice a day. The labs are stable. Hemogram is at 9.5. BUN is a 59 with a creatinine of 5.2 and the patient remains oliguric. Sodium level is at 135. 05/28/2023, the patient is stable. Chest x-ray still showing a right-sided pleural effusion and the ultrasound the chest showed a 4 cm pocket. Ultimately this will be monitored and hopefully recover with repeat hemodialysis. The patient is undergoing hemodialysis this morning. He is ambulating. He is alert and oriented 3. He remains oliguric and it produces a small amount of urine output. Awaiting transfer to rehabilitation. Afebrile. Labs from today shows a hemoglobin of 9.5, BUN is at 82 with a creatinine of 7.3 and a sodium level is at 134. Objective - Vital Signs Vital signs: Vital Signs Temp 98.1 F 05/28/23 08:00 Pulse 60 05/28/23 12:50 Resp 18 05/28/23 12:00 BP 117/75 05/28/23 12:00 Pulse Ox 96 05/28/23 12:00 FiO2 50 05/13/23 15:13 Intake & Output 05/27/23 05/28/23 05/28/23 18:59 06:59 18:59 Intake Total 240 400 Balance 240 400 Weight 110.4 kg 109.9 kg Intake: Oral 240 400 Other: Voiding Method Urinal Urinal Urinal # Voids 1 # Bowel Movements 1 ABP, PAP, CO, CI - Last Documented Arterial Blood Pressure 116/42 Pulmonary Artery Pressure 29/9 Cardiac Output 4.5 Cardiac Index 2.2 - Exam CONSTITUTIONAL: Appears comfortable, cooperative, no acute distress RESPIRATORY: Lungs sounds diminished bilaterally, right greater than left. Respirations even, nonlabored. Currently on room air with oxygen saturation 94%. Able to achieve 4075-7288 mL on incentive spirometry. Strong non- productive cough. CARDIOVASCULAR: S1, S2 present. Regular rate and rhythm, sinus rhythm on telemetry. Sternum stable. Palpable peripheral pulses bilaterally. Generalized edema present. No calf pain or tenderness noted. Heart hugger, antiembolism stockings, SCDs present. GASTROINTESTINAL: Abdomen soft, nontender, nondistended, obese. Active bowel sounds present 4 quadrants. Tolerating diet. Positive bowel movement 05/25 GENITOURINARY: No further urine output, receiving HD INTEGUMENTARY: Skin is warm and dry. Anterior chest incision well approximated. Right lower extremity EVH site well approximated without redness or drainage. NEUROLOGIC: Cranial nerves II through XII intact MUSKULOSKELETAL: Able to move all extremities, strength equal bilaterally PSYCHIATRIC: Alert and oriented to person, place, year and situation INVASIVE LINES AND TUBES: Right chest PermCath present - Labs CBC & Chem 7: 05/28/23 07:30 05/28/23 07:30 Labs: Abnormal Lab Results - Last 24 Hours (Table) 05/27/23 05/27/23 05/28/23 Range/Units 16:08 20:01 07:30 WBC 12.4 H (3.8-10.6) k/uL RBC 3.02 L (4.30-5.90) m/uL Hgb 9.5 L (13.0-17.5) gm/dL Hct 29.2 L (39.0-53.0) % Neutrophils # 9.4 H (1.3-7.7) k/uL Sodium (137-145) mmol/L Chloride (98-107) mmol/L BUN (9-20) mg/dL Creatinine (0.66-1.25) mg/dL POC Glucose (mg/dL) 122 H 147 H (70-110) mg/dL Calcium (8.4-10.2) mg/dL Total Protein (6.3-8.2) g/dL Albumin (3.5-5.0) g/dL 05/28/23 Range/Units 07:30 WBC (3.8-10.6) k/uL RBC (4.30-5.90) m/uL Hgb (13.0-17.5) gm/dL Hct (39.0-53.0) % Neutrophils # (1.3-7.7) k/uL Sodium 134 L (137-145) mmol/L Chloride 97 L (98-107) mmol/L BUN 82 H (9-20) mg/dL Creatinine 7.38 H* (0.66-1.25) mg/dL POC Glucose (mg/dL) (70-110) mg/dL Calcium 8.3 L (8.4-10.2) mg/dL Total Protein 6.1 L (6.3-8.2) g/dL Albumin 3.1 L (3.5-5.0) g/dL Assessment and Plan Plan: Coronary artery disease status post off-pump coronary artery bypass grafting 2 with a left internal thoracic artery to the left anterior descending artery, saphenous vein graft from the aorta to the posterior descending artery. Left atrial appendage ligation. Postoperative day # 15 Acute kidney injury requiring hemodialysis. The patient is having daily dialysis, and this morning the patient is undergoing another session of hemodialysis Bilateral pleural effusion small on the left, the site of the right , post thoracotomy and cardiac surgery, status continues to improve with dialysis. The patient's last chest x-ray was from today and the patient continues to have a small right-sided pleural effusion. Ultrasound of the chest shows a small pocket of fluid on the right measuring on 4 cm History of chronic kidney disease, stage IV. Ischemic cardiomyopathy with ejection fraction 40-45%. History of pulmonary embolism previously on Eliquis. Diabetes mellitus. Hypertension. CVA. BPH. Hyperlipidemia. Previous COVID-19 infection. Plan: Continue hemodialysis per nephrology, hemodialysis is being completed today and the patient is still oliguric . Respiratory status is stable and the patient is currently on room air oxygen The pleural effusion is small and being monitored Continue use of incentive spirometer Continue hemodialysis per nephrology Hemoglobin is stable Continue aspirin Continue amiodarone Continue Eliquis Continue metoprolol 12.5 mg by mouth twice a day Midodrine for hypotension Bicarb supplements We'll follow Subacute rehabilitation at [facility].
--- NOTE | 2023-05-28 13:00 | P.PN ---
Subjective Progress Note Date: 05/28/23 Subjective: Patient reports feeling tired. Slow improvement as compared to yesterday. No acute overnight events LABS: Hemoglobin 9.4, creatinine 5.1 BP 134/65, heart rate 63 05/24 Patient is postop day #11 for coronary artery bypass grafting 2 and seen today on the cardiac stepdown unit. Telemetry is a sinus rhythm. Heart rate is in the 60s, blood pressure 112/55, pulse ox 95% on room air. Patient is followed by nephrology for acute kidney injury on dialysis that started 05/17. Patient states he is feeling a bit better. He continues to have significant weakness, he states he is only able to stand and walk with assistance. He is concerned about his discharge plan. 05/25 The patient states that he is feeling a little bit stronger slowly improving. He is scheduled for hemodialysis today. Heart rate has been in the 60s, blood pressure 121/72, pulse ox 94% on room air. Repeat blood work reveals potassium 3.9, BUN 79 creatinine 6.73. Hemoglobin 8.9. Chest x-ray correlate for heart failure. Findings stable. 05/26 Patient denies having any chest pain, no shortness of breath. He continues to have weakness and fatigue. Heart rate is in the 60s, blood pressure 1/55, pulse ox 91-95% on room air. He is on dialysis schedule Wednesday. Patient is scheduled for transfer to [facility] for inpatient rehab tomorrow. 05/27 Patient denies having any chest pain. His main concern is that he has significant weakness. He states he is able to ambulate to the doorway only. He is to continue hemodialysis on Wednesday schedule. Patient is scheduled for discharge to [facility] for inpatient rehab today. Heart rate is in the 50s and 60s, blood pressure 138/69. Pulse ox 94% on room air. Repeat blood work reveals WBC 11.6, hemoglobin 9.5, sodium 135, potassium 4.4, BUN 59 creatinine 5.21. 05/28 Patient's insurance company has denied authorization for inpatient rehab as well as subacute rehab. No new concerns from the patient. He continues to have significant weakness with limited of ability to ambulate. He is undergoing HD today. Heart rate is in the 60s, blood pressure 117/75, pulse ox 96% on room air. PHYSICAL EXAMINATION Vital signs reviewed. CONSTITUTIONAL: No apparent distress. CHEST EXAMINATION: Lungs are clear to auscultation. No chest wall tenderness is noted on palpation or with deep breathing. HEART EXAMINATION: Regular rate and rhythm. S1, S2 heard. No murmurs, gallops or rub. EXTREMITIES: 2+ peripheral pulses, 1+ lower extremity edema and no calf tenderness. NEUROLOGIC EXAMINATION: Patient is awake, alert and oriented x3. ASSESSMENT: 1. 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 Ischemic cardiomyopathy EF previously 25-30% improved to 45-50% 3. Chronic systolic heart failure 4. Diabetes mellitus type 2 5. Hypertension 6. Chronic kidney disease stage IV 7. Previous history of stroke 8. Previous history of LV thrombus 9. Postoperative episode of atrial fibrillation, paroxysmal PLAN: Continue current medications include aspirin, Eliquis 2.5 mg. Metoprolol 12.5 mg. Continue oral amiodarone 200 mg. [place] Entresto and Aldactone due to ANURADHA. Continue supportive care. Discharge planning to [facility] for inpatient rehab. Nurse practitioner note has been reviewed, I agree with the documented findings and plan of care. Patient was seen and examined. Objective - Vital Signs Vital signs: Vital Signs Temp 97.9 F 05/28/23 04:00 Pulse 60 05/28/23 09:25 Resp 16 05/28/23 04:00 BP 121/60 05/28/23 04:00 Pulse Ox 96 05/28/23 04:00 FiO2 50 05/13/23 15:13 Intake & Output 05/27/23 05/28/23 05/28/23 18:59 06:59 18:59 Intake Total 240 400 Balance 240 400 Weight 110.4 kg 109.9 kg Intake: Oral 240 400 Other: Voiding Method Urinal Urinal # Voids 1 # Bowel Movements 1 ABP, PAP, CO, CI - Last Documented Arterial Blood Pressure 116/42 Pulmonary Artery Pressure 29/9 Cardiac Output 4.5 Cardiac Index 2.2 - Labs CBC & Chem 7: 05/28/23 07:30 05/28/23 07:30 Labs: Abnormal Lab Results - Last 24 Hours (Table) 08/03/23 08/03/23 08/03/23 Range/Units 11:20 16:08 20:01 WBC (3.8-10.6) k/uL RBC (4.30-5.90) m/uL Hgb (13.0-17.5) gm/dL Hct (39.0-53.0) % Neutrophils # (1.3-7.7) k/uL Sodium (137-145) mmol/L Chloride (98-107) mmol/L BUN (9-20) mg/dL Creatinine (0.66-1.25) mg/dL POC Glucose (mg/dL) 123 H 122 H 147 H (70-110) mg/dL Calcium (8.4-10.2) mg/dL Total Protein (6.3-8.2) g/dL Albumin (3.5-5.0) g/dL 05/28/23 05/28/23 Range/Units 07:30 07:30 WBC 12.4 H (3.8-10.6) k/uL RBC 3.02 L (4.30-5.90) m/uL Hgb 9.5 L (13.0-17.5) gm/dL Hct 29.2 L (39.0-53.0) % Neutrophils # 9.4 H (1.3-7.7) k/uL Sodium 134 L (137-145) mmol/L Chloride 97 L (98-107) mmol/L BUN 82 H (9-20) mg/dL Creatinine 7.38 H* (0.66-1.25) mg/dL POC Glucose (mg/dL) (70-110) mg/dL Calcium 8.3 L (8.4-10.2) mg/dL Total Protein 6.1 L (6.3-8.2) g/dL Albumin 3.1 L (3.5-5.0) g/dL
[2023-05-28] MEDS: ASPIRIN 81 MG PO SCH (13:37)
[2023-05-28] MEDS: AMIODARONE 200 MG TAB PO SCH (13:37)
[2023-05-28] MEDS: METOPROLOL TARTRATE 12.5 MG TAB PO SCH ×2 (13:37→20:34)
[2023-05-28] MEDS: FOLIC ACID 1 MG TAB PO SCH (13:38)
[2023-05-28 16:12] LABS: Glucose,Whole Blood 191 mg/dL (70-110)
--- NOTE | 2023-05-28 18:03 | P.PN ---
Subjective Patient is seen for follow-up for acute kidney injury status post coronary artery bypass surgery. Patient has underlying chronic kidney disease NKF stage IV with baseline creatinine around 1.4 to 2 mg/dL Patient was started on hemodialysis on 05/17/2023 for oliguric ATN postop. Urine output remains low. No response to IV Lasix. No significant complaints today. Patient reports good appetite. No urine output. Scheduled for HD today Objective - Vital Signs Vital signs: Vital Signs Temp 97.9 F 05/28/23 17:40 Pulse 61 05/28/23 17:40 Resp 19 05/28/23 17:40 BP 130/70 05/28/23 17:40 Pulse Ox 96 05/28/23 12:00 FiO2 50 05/13/23 15:13 Intake & Output 05/27/23 05/28/23 05/28/23 18:59 06:59 18:59 Intake Total 240 400 600 Output Total 2600 Balance 240 400 -2000 Weight 110.4 kg 109.9 kg Intake: Oral 240 400 Hemodialysis 600 Output: Hemodialysis 2600 Other: Voiding Method Urinal Urinal Urinal # Voids 1 # Bowel Movements 1 ABP, PAP, CO, CI - Last Documented Arterial Blood Pressure 116/42 Pulmonary Artery Pressure 29/9 Cardiac Output 4.5 Cardiac Index 2.2 - Exam Awake, comfortable, in no acute distress Examination of the heart S1 and S2 Examination lungs bilateral breath sounds are heard, decreased breath sounds at the bases Examination lower extremity shows 1+ edema in bilateral lower extremities and upper extremities 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 exam grossly intact - Labs CBC & Chem 7: 05/28/23 07:30 05/28/23 07:30 Labs: Abnormal Lab Results - Last 24 Hours (Table) 05/27/23 05/28/23 05/28/23 Range/Units 20:01 07:30 07:30 WBC 12.4 H (3.8-10.6) k/uL RBC 3.02 L (4.30-5.90) m/uL Hgb 9.5 L (13.0-17.5) gm/dL Hct 29.2 L (39.0-53.0) % Neutrophils # 9.4 H (1.3-7.7) k/uL Sodium 134 L (137-145) mmol/L Chloride 97 L (98-107) mmol/L BUN 82 H (9-20) mg/dL Creatinine 7.38 H* (0.66-1.25) mg/dL POC Glucose (mg/dL) 147 H (70-110) mg/dL Calcium 8.3 L (8.4-10.2) mg/dL Total Protein 6.1 L (6.3-8.2) g/dL Albumin 3.1 L (3.5-5.0) g/dL 05/28/23 Range/Units 16:08 WBC (3.8-10.6) k/uL RBC (4.30-5.90) m/uL Hgb (13.0-17.5) gm/dL Hct (39.0-53.0) % Neutrophils # (1.3-7.7) k/uL Sodium (137-145) mmol/L Chloride (98-107) mmol/L BUN (9-20) mg/dL Creatinine (0.66-1.25) mg/dL POC Glucose (mg/dL) 191 H (70-110) mg/dL Calcium (8.4-10.2) mg/dL Total Protein (6.3-8.2) g/dL Albumin (3.5-5.0) g/dL Assessment and Plan Assessment: 1. Acute kidney injury, oliguric ATN postoperatively. Started on hemodialysis on 05/17/2023. Patient remains oliguric. 2. Status post coronary artery bypass surgery on 05/13/2023 3. Coronary artery disease with ejection fraction 40-45%. 4. History of PE maintained on eliquis prior to admission 5. Chronic kidney disease NKF stage IV with baseline creatinine around 2 mg/dL since September 2022. Etiology is likely diabetic kidney disease. UA shows 2+ protein 6. Volume overload 7. Brief episode of unresponsiveness post hemodialysis yesterday. Heart rate was 42 and systolic blood pressure 10 5 mmHg. Patient received about 200 mL of fluid back and has been hemodynamically stable since then. Plan: Hemodialysis today Continue Hemodialysis in rehab post discharge
[2023-05-28 20:04] LABS: Glucose,Whole Blood 147 mg/dL (70-110)
[2023-05-29 05:51] LABS: Glucose,Whole Blood 77 mg/dL (70-110)
[2023-05-29] MEDS: INSULIN ASPART (NovoLOG) 100 UNIT/ML VIAL SQ SCH ×7 (06:14→20:44)
[2023-05-29] MEDS: PANTOPRAZOLE 40 MG TABLET PO SCH (06:14)
[2023-05-29] MEDS: INSULIN DETEMIR (LEVEMIR) 100 UNIT/ML SYR SQ SCH ×2 (06:14→20:43)
[2023-05-29] MEDS: IPRATROPIUM-ALBUTEROL 3 ML NEB INHALATION SCH ×4 (07:43→21:27)
[2023-05-29 08:32] LABS: ALT 39 U/L (4-49); AST 69 U/L (17-59); African American GFR (CKD) 10 (>60 ml/min/1.73 sqM); Albumin 3.2 g/dL (3.5-5.0); Alkaline Phosphatase 97 U/L (38-126); Anion Gap 14 mmol/L; Blood Urea Nitrogen 69 mg/dL (9-20); Calcium 8.2 mg/dL (8.4-10.2); Carbon Dioxide 23 mmol/L (22-30); Chloride 97 mmol/L (98-107); Glucose 69 mg/dL (74-99); Non-African American GFR(CKD) 8 (>60 ml/min/1.73 sqM); Potassium 4.6 mmol/L (3.5-5.1); Sodium 134 mmol/L (137-145); Total Bilirubin 0.9 mg/dL (0.2-1.3); Total Protein 6.4 g/dL (6.3-8.2)
[2023-05-29] MEDS: APIXABAN 2.5 MG TABLET PO SCH ×2 (08:33→20:03)
[2023-05-29] MEDS: AMIODARONE 200 MG TAB PO SCH (08:33)
[2023-05-29] MEDS: FOLIC ACID 1 MG TAB PO SCH (08:33)
[2023-05-29] MEDS: ASPIRIN 81 MG PO SCH (08:33)
[2023-05-29] MEDS: METOPROLOL TARTRATE 12.5 MG TAB PO SCH ×2 (08:33→20:03)
[2023-05-29 08:48] LABS: Basophils # (A) 0.1 k/uL (0-0.2); Basophils % (A) 1 %; Eosinophils # (A) 0.6 k/uL (0-0.7); Eosinophils % (A) 6 %; HCT 27.2 % (39.0-53.0); HGB 9.1 gm/dL (13.0-17.5); Hypochromasia Slight; Lymphocytes # (A) 1.2 k/uL (1.0-4.8); Lymphocytes % (A) 12 %; MCH 32.5 pg (25.0-35.0); MCHC 33.4 g/dL (31.0-37.0); MCV 97.3 fL (80.0-100.0); Mean Platelet Volume 7.4; Monocytes # (A) 0.5 k/uL (0-1.0); Monocytes % (A) 5 %; Neutrophils # (A) 7.4 k/uL (1.3-7.7); Neutrophils % (A) 75 %; Platelet Count 244 k/uL (150-450); RBC 2.79 m/uL (4.30-5.90); RDW 14.7 % (11.5-15.5); WBC 9.9 k/uL (3.8-10.6)
--- NOTE | 2023-05-29 08:50 | P.PN ---
Subjective Progress Note Date: 05/29/23 Principal diagnosis: Two-vessel coronary artery disease. Past medical history significant for nonischemic cardiomyopathy with an ejection fraction of 25-30% which improved to an ejection fraction of 45-50% with intense medical therapy, history of left ventricular thrombus on transthoracic 2-D echocardiogram completed on 05/23/2023 which was organized and did did not appear acute, history of pulmonary embolus on eliquis on an outpatient basis, hypertension, diabetes mellitus, history of CVA with some residual right-sided weakness, COVID-19 infection in early 2021, acute on chronic kidney disease with a baseline creatinine of 2.0, and prostate disorder. POD #16 Off pump coronary artery bypass grafting x 2. Left internal thoracic artery (in-situ) to left anterior descending artery, saphenous vein from aorta to posterior descending artery, Endoscopic right greater saphenous vein harvest, Left atrial appendage ligation using 35mm AtriClip, Graft flow measurements using the [employer]-Stim flow meter system, and an intraoperative transesophageal echocardiogram performed by anesthesia. Postoperative acute blood loss anemia and thrombocytopenia, expected given hemodilution. Intra and postoperative hypotension, unexpected Acute kidney injury, likely secondary to hypoperfusion and history of chronic kidney disease with a baseline creatinine of 2.0, status post placement of temporary hemodialysis catheter, and status post permacath placement with removal of right groin hemodialysis catheter. Mental status change, unsure of eitiology, likely metabolic encephalopathy vs new stroke, resolved Leukocytosis, unknown origin, remains afebrile, all cultures remained negative Medical debility The patient was seen and examined in follow-up today 05/29/2023 at his bedside on the third floor cardiac stepdown unit. He is sitting up to the bedside chair, is awake, alert, oriented 3 and is in no acute apparent distress. He is tolerating his breakfast. Denies any complaints of shortness of breath or pain at this time. He reports he ambulated in the cardiac stepdown unit hallway yesterday 4 with standby assistance from physical/occupational therapy, nursing and family. Oxygen saturations are 97% on room air and he is achieving 1250 mL on his incentive spirometry with encouragement. Remote telemetry showing normal sinus rhythm heart rate 63 BPM. Remains hemodynamically stable and is currently on no inotropic support. Laboratory and chest x-ray results reviewed. He underwent hemodialysis yesterday with 1000 mL dialyzed. Objective - Vital Signs Vital signs: Vital Signs Temp 97.9 F 05/28/23 23:29 Pulse 60 05/29/23 07:56 Resp 16 05/29/23 04:00 BP 128/66 05/29/23 04:00 Pulse Ox 97 05/29/23 07:44 FiO2 50 05/13/23 15:13 Intake & Output 05/28/23 05/29/23 05/29/23 18:59 06:59 18:59 Intake Total 600 240 Output Total 2600 0 Balance -1999 0 240 Intake: Oral 240 Hemodialysis 600 Output: Urine 0 Hemodialysis 2600 Other: Voiding Method Urinal Urinal # Voids 1 # Bowel Movements 1 ABP, PAP, CO, CI - Last Documented Arterial Blood Pressure 116/42 Pulmonary Artery Pressure 29/9 Cardiac Output 4.5 Cardiac Index 2.2 - Exam CONSTITUTIONAL: Sitting up to the bedside chair on the cardiac stepdown unit, appears comfortable, cooperative, no apparent acute distress, generalized weakness. HEENT: Neck is supple, no JVD, no lymphadenopathy. RESPIRATORY: Lungs sounds essentially clear throughout, diminished to his bilateral bases, right greater than left, few scattered crackles to his left lower lobe. Respirations are symmetrical and nonlabored. Currently on room air with oxygen saturations 97%. Able to achieve 1250 mL on his incentive spirometry. Strong cough. CARDIOVASCULAR: Regular rhythm and rate. S1 and S2 present, negative for S3, gallop or murmur. Sternum is stable. Palpable peripheral pulses bilaterally, 1+ generalized edema. No calf pain or tenderness noted. Heart hugger in place. Knee-high GENNY hose and sequential compression devices in place to his bilateral lower extremities. GASTROINTESTINAL: Abdomen soft, nontender, nondistended. Active bowel sounds present 4 quadrants. Tolerating diet. Passing flatus. No guarding or rigidity. Bowel movement x 3 on 05/28/2023. GENITOURINARY: Hemodialysis 05/28/2023 with 1000 mL dialyzed. Small amount of urine output yesterday morning. Right upper chest hemodialysis permacath in place. INTEGUMENTARY: Skin is warm and dry with no evidence of clubbing or cyanosis. Midline sternal incision clean dry and well approximated, covered with dry intact dressing. Right lower extremity EVH sites well approximated without redness or drainage. NEUROLOGIC: Cranial nerves II through XII intact. No Focal deficits. MUSKULOSKELETAL: Able to move all extremities, strength equal bilaterally, generalized weakness. Chronic right-sided weakness form previous CVA. PSYCHIATRIC: Alert, oriented 3 to person, place, and time. - Allied health notes Allied health notes reviewed: nursing - Labs CBC & Chem 7: 05/28/23 07:30 05/29/23 07:25 Labs: Abnormal Lab Results - Last 24 Hours (Table) 05/28/23 05/28/23 05/28/23 Range/Units 07:30 16:08 19:59 Sodium 134 L (137-145) mmol/L Chloride 97 L (98-107) mmol/L BUN 82 H (9-20) mg/dL Creatinine 7.38 H* (0.66-1.25) mg/dL Glucose (74-99) mg/dL POC Glucose (mg/dL) 191 H 147 H (70-110) mg/dL Calcium 8.3 L (8.4-10.2) mg/dL AST (17-59) U/L Total Protein 6.1 L (6.3-8.2) g/dL Albumin 3.1 L (3.5-5.0) g/dL 05/29/23 Range/Units 07:25 Sodium 134 L (137-145) mmol/L Chloride 97 L (98-107) mmol/L BUN 69 H (9-20) mg/dL Creatinine 6.17 H (0.66-1.25) mg/dL Glucose 69 L (74-99) mg/dL POC Glucose (mg/dL) (70-110) mg/dL Calcium 8.2 L (8.4-10.2) mg/dL AST 69 H (17-59) U/L Total Protein (6.3-8.2) g/dL Albumin 3.2 L (3.5-5.0) g/dL - Imaging and Cardiology Chest x-ray: report reviewed, image reviewed Assessment and Plan Assessment: Two-vessel coronary artery disease, status post off pump 2 vessel coronary artery bypass grafting surgery Nonischemic cardiomyopathy with an EF of 45-50% History of left ventricular thrombus on transthoracic 2-D echocardiogram on 04/26 which was organized and did not appear to be acute History of pulmonary embolus on eliquis on an outpatient basis History of hypertension Diabetes mellitus, with a preoperative hemoglobin A1c 7.4% History of CVA with some residual right-sided weakness COVID-19 infection in early 2021 Chronic kidney disease stage IV with a baseline creatinine of 2.0 Prostate disorder Postoperative acute blood loss anemia and thrombocytopenia, expected given hemodilution Intraoperative and Postoperative hypotension, unexpected Acute kidney injury, hemodynamic ATN with borderline urine output, likely secon niko to hypoperfusion, status post temporary hemodialysis catheter placement Paroxysmal atrial fibrillation, status post ligation of left atrial appendage, currently in sinus rhythm Mental status change, unsure of eitiology, likely metabolic encephalopathy vs new stroke, resolved Leukocytosis, unclear etiology, afebrile, cultures negative Medical debility Plan: Continue to maximize medical therapy with low dose aspirin, statin, and beta keara with hold parameters. Continue amiodarone for atrial fibrillation prophylaxis, continue Eliquis. Encourage incentive spirometry use 10 times every hour while awake. Bronchodilators per pulmonology. Will monitor daily labs and chest x-rays. Electrolyte replacement per protocol. GI/DVT prophylaxis. Increase activity as tolerated. PT/OT/cardiac rehab following. Pain control with current medication regimen. No Toradol due to kidney disease. Insulin management per internal medicine service, patient's preoperative hemoglobin A1c was 7.4%. Patient needs tight glucose control to promote of sternal wound healing. Daily weights. Continue record strict inaccurate I's and O's. Patient is to shower daily. Hemodialysis recommendations per nephrology. Hemodialysis completed yesterday with 1000 mL dialyzed. Discharge planning is in place, waiting on appeal to insurance company for inpatient rehab. More recommendations to follow based on patient's clinical course. Time with Patient: Greater than 30
[2023-05-29 11:45] LABS: Glucose,Whole Blood 117 mg/dL (70-110)
--- NOTE | 2023-05-29 12:08 | P.PN ---
Subjective Patient is seen for follow-up for acute kidney injury status post coronary artery bypass surgery. Patient has underlying chronic kidney disease NKF stage IV with baseline creatinine around 1.4 to 2 mg/dL Patient was started on hemodialysis on 05/17/2023 for oliguric ATN postop. No significant complaints today. Patient reports good appetite. No significant urine output. Tolerated hemodialysis well yesterday with UF of 1.3 L. Objective - Vital Signs Vital signs: Vital Signs Temp 98.4 F 05/29/23 08:35 Pulse 66 05/29/23 11:28 Resp 16 05/29/23 08:35 BP 114/68 05/29/23 08:35 Pulse Ox 94 L 05/29/23 08:35 FiO2 50 05/13/23 15:13 Intake & Output 05/28/23 05/29/23 05/29/23 18:59 06:59 18:59 Intake Total 600 240 Output Total 2600 0 15 Balance -1999 0 225 Intake: Oral 240 Hemodialysis 600 Output: Urine 0 Stool 15 Hemodialysis 2600 Other: Voiding Method Urinal Urinal Urinal # Voids 1 # Bowel Movements 1 ABP, PAP, CO, CI - Last Documented Arterial Blood Pressure 116/42 Pulmonary Artery Pressure 29/9 Cardiac Output 4.5 Cardiac Index 2.2 - Exam Awake, comfortable, in no acute distress Examination of the heart S1 and S2 Examination lungs bilateral breath sounds are heard, decreased breath sounds at the bases Examination lower extremity shows 1+ edema in bilateral lower extremities and upper extremities CREW SCHEDULER exam grossly intact - Labs CBC & Chem 7: 05/29/23 07:25 05/29/23 07:25 Labs: Abnormal Lab Results - Last 24 Hours (Table) 05/28/23 05/28/23 05/29/23 Range/Units 16:08 19:59 07:25 RBC 2.79 L (4.30-5.90) m/uL Hgb 9.1 L (13.0-17.5) gm/dL Hct 27.2 L (39.0-53.0) % Sodium (137-145) mmol/L Chloride (98-107) mmol/L BUN (9-20) mg/dL Creatinine (0.66-1.25) mg/dL Glucose (74-99) mg/dL POC Glucose (mg/dL) 191 H 147 H (70-110) mg/dL Calcium (8.4-10.2) mg/dL AST (17-59) U/L Albumin (3.5-5.0) g/dL 05/29/23 05/29/23 Range/Units 07:25 11:34 RBC (4.30-5.90) m/uL Hgb (13.0-17.5) gm/dL Hct (39.0-53.0) % Sodium 134 L (137-145) mmol/L Chloride 97 L (98-107) mmol/L BUN 69 H (9-20) mg/dL Creatinine 6.17 H (0.66-1.25) mg/dL Glucose 69 L (74-99) mg/dL POC Glucose (mg/dL) 117 H (70-110) mg/dL Calcium 8.2 L (8.4-10.2) mg/dL AST 69 H (17-59) U/L Albumin 3.2 L (3.5-5.0) g/dL Assessment and Plan Assessment: 1. Acute kidney injury, oliguric ATN postoperatively. Started on hemodialysis on 05/17/2023. Patient remains oliguric. 2. Status post coronary artery bypass surgery on 05/13/2023 3. Coronary artery disease with ejection fraction 40-45%. 4. History of PE maintained on eliquis prior to admission 5. Chronic kidney disease NKF stage IV with baseline creatinine around 2 mg/dL since September 2022. Etiology is likely diabetic kidney disease. UA shows 2+ protein 6. Volume overload, improving Plan: Continue Hemodialysis in rehab post discharge Check phosphorus Add Nephrocaps
--- NOTE | 2023-05-29 12:28 | P.PN ---
Subjective Progress Note Date: 05/29/23 Subjective: Patient reports feeling tired. Slow improvement as compared to yesterday. No acute overnight events LABS: Hemoglobin 9.4, creatinine 5.1 BP 134/65, heart rate 63 05/24 Patient is postop day #11 for coronary artery bypass grafting 2 and seen today on the cardiac stepdown unit. Telemetry is a sinus rhythm. Heart rate is in the 60s, blood pressure 112/55, pulse ox 95% on room air. Patient is followed by nephrology for acute kidney injury on dialysis that started 05/17. Patient states he is feeling a bit better. He continues to have significant weakness, he states he is only able to stand and walk with assistance. He is concerned about his discharge plan. 05/25 The patient states that he is feeling a little bit stronger slowly improving. He is scheduled for hemodialysis today. Heart rate has been in the 60s, blood pressure 121/72, pulse ox 94% on room air. Repeat blood work reveals potassium 3.9, BUN 79 creatinine 6.73. Hemoglobin 8.9. Chest x-ray correlate for heart failure. Findings stable. 05/26 Patient denies having any chest pain, no shortness of breath. He continues to have weakness and fatigue. Heart rate is in the 60s, blood pressure 1/55, pulse ox 91-95% on room air. He is on dialysis schedule Wednesday. Patient is scheduled for transfer to [facility] for inpatient rehab tomorrow. 05/27 Patient denies having any chest pain. His main concern is that he has significant weakness. He states he is able to ambulate to the doorway only. He is to continue hemodialysis on Wednesday schedule. Patient is scheduled for discharge to [facility] for inpatient rehab today. Heart rate is in the 50s and 60s, blood pressure 138/69. Pulse ox 94% on room air. Repeat blood work reveals WBC 11.6, hemoglobin 9.5, sodium 135, potassium 4.4, BUN 59 creatinine 5.21. 05/28 Patient's insurance company has denied authorization for inpatient rehab as well as subacute rehab. No new concerns from the patient. He continues to have significant weakness with limited of ability to ambulate. He is undergoing HD today. Heart rate is in the 60s, blood pressure 117/75, pulse ox 96% on room air. 05/29 Patient denies having any chest pain or shortness of breath. He does have shortness of breath with exertion, walking. Her rate is in the 70s and 80s, blood pressure 106/64. Hemoglobin is 8.3. Electrolytes are normal. BUN 34 creatinine 1.1. Family has started appeal process with his insurance company to obtain authorization for inpatient rehab/subacute rehab PHYSICAL EXAMINATION Vital signs reviewed. CONSTITUTIONAL: No apparent distress. CHEST EXAMINATION: Lungs are clear to auscultation. No chest wall tenderness is noted on palpation or with deep breathing. HEART EXAMINATION: Regular rate and rhythm. S1, S2 heard. No murmurs, gallops or rub. EXTREMITIES: 2+ peripheral pulses, 1+ lower extremity edema and no calf tenderness. NEUROLOGIC EXAMINATION: Patient is awake, alert and oriented x3. ASSESSMENT: 1. CAD with VICE PRESIDENT OF TALENT ACQUISITION LAD, VICE PRESIDENT OF TALENT ACQUISITION RCA status post ARAUZ to LAD and SVG to PDA 05/13 2. Ischemic cardiomyopathy EF previously 25-30% improved to 45-50% 3. Chronic systolic heart failure 4. Diabetes mellitus type 2 5. Hypertension 6. Chronic kidney disease stage IV 7. Previous history of stroke 8. Previous history of LV thrombus 9. Postoperative episode of atrial fibrillation, paroxysmal PLAN: Continue current medications include aspirin, Eliquis 2.5 mg. Metoprolol 12.5 mg. Continue oral amiodarone 200 mg. Katy Entresto and Aldactone due to ANURADHA. Continue supportive care. Discharge planning to [facility] for inpatient rehab. Nurse practitioner note has been reviewed, I agree with the documented findings and plan of care. Patient was seen and examined. Objective - Vital Signs Vital signs: Vital Signs Temp 98.4 F 05/29/23 08:35 Pulse 66 05/29/23 11:28 Resp 16 05/29/23 08:35 BP 114/68 05/29/23 08:35 Pulse Ox 94 L 05/29/23 08:35 FiO2 50 05/13/23 15:13 Intake & Output 05/28/23 05/29/23 05/29/23 18:59 06:59 18:59 Intake Total 600 240 Output Total 2600 0 15 Balance -2000 0 225 Intake: Oral 240 Hemodialysis 600 Output: Urine 0 Stool 15 Hemodialysis 2600 Other: Voiding Method Urinal Urinal Urinal # Voids 1 # Bowel Movements 1 ABP, PAP, CO, CI - Last Documented Arterial Blood Pressure 116/42 Pulmonary Artery Pressure 29/9 Cardiac Output 4.5 Cardiac Index 2.2 - Labs CBC & Chem 7: 05/29/23 07:25 05/29/23 07:25 Labs: Abnormal Lab Results - Last 24 Hours (Table) 05/28/23 05/28/23 05/29/23 Range/Units 16:08 19:59 07:25 RBC 2.79 L (4.30-5.90) m/uL Hgb 9.1 L (13.0-17.5) gm/dL Hct 27.2 L (39.0-53.0) % Sodium (137-145) mmol/L Chloride (98-107) mmol/L BUN (9-20) mg/dL Creatinine (0.66-1.25) mg/dL Glucose (74-99) mg/dL POC Glucose (mg/dL) 191 H 147 H (70-110) mg/dL Calcium (8.4-10.2) mg/dL AST (17-59) U/L Albumin (3.5-5.0) g/dL 05/29/23 05/29/23 Range/Units 07:25 11:34 RBC (4.30-5.90) m/uL Hgb (13.0-17.5) gm/dL Hct (39.0-53.0) % Sodium 134 L (137-145) mmol/L Chloride 97 L (98-107) mmol/L BUN 69 H (9-20) mg/dL Creatinine 6.17 H (0.66-1.25) mg/dL Glucose 69 L (74-99) mg/dL POC Glucose (mg/dL) 117 H (70-110) mg/dL Calcium 8.2 L (8.4-10.2) mg/dL AST 69 H (17-59) U/L Albumin 3.2 L (3.5-5.0) g/dL
--- NOTE | 2023-05-29 13:33 | P.PN ---
Subjective Progress Note Date: 05/29/23 68 years old male with past medical history of Diabetes Mellitus, Hypertension, hyperlipidemia, benign prostatic hypertrophy, pulmonary embolism on blood thinner He was admitted for coronary artery disease affecting mainly to vessels and underwent coronary artery bypass surgery yesterday and he was on mechanical ventilation for a short lived time, eventually he got extubated. Comfortable in bed with no chest pain or dyspnea. Hemodynamically stable. Patient has mild worsening of creatinine 2.8, 1.3 yesterday 05/15/2023 Fascia temo bed comfortably with no complaints. Blood pressure still borderline . We will see improvement on 15. Creatinine up to 4.0. Nephrology was consulted. Patient is status post bolus of 500 mL of normal saline. His urine analysis is abnormal. Urine culture is negative. Bladder scan is negative. We don't a repeat urine culture Patient remains on aspirin Plavix and midodrine by surgery team 05/16/23 pt is awake alert with no dyspnea, no chest pain ,he denies any specific complaints but his renal function keep worsening and today his creatinine went up to 5.4, he was lasix drip at 20 mg per hour, pt is mostly will need hemodialysis per nephrology team pt is on dobutamine with poor urine output. pt has mild leukocytosis sugar is more 300 so increased levemir to 5 u bid and novolog 5 u tid ac pt is on bicarb drip as well kept on asprin and plavix , and midodrine 05/17/2023 Patient remains in ICU closely monitored case/critical care team, the primary ca rdiothoracic surgery team and test analyst as well as solar energy consultant and designer. He is status post bypass surgery and today is postoperative day #4. Creatinine is elevated up to 7.3 today. He is getting treatment for hemodialysis started here in the ICU from. His Lasix drip and backup as well He remains on dopamine drip Blood pressure is borderline with systolic blood pressure is stable around 90s t o 100. Hemoglobin 7.7, WBC within the reference range today 9000. Glucose was elevated more than 300 despite doubling the dose of Levemir last night to 5 mg twice a day. Therefore he was started on insulin drip This was discussed with patient in the thoracic primary team 05/18/2023 Patient is very lethargic and tired looking today. Open eyes to verbal stimuli and answer questions. He follows commands. Because of his change mentation neurologist has been consulted from a most likely patient will require MRI of the brain and EEG to rule out intracranial lesions or seizure activities. Blood pressure was controlled Labs reviewed Patient remains on insulin drip, dopamine drip and IV vancomycin 05/19/2023 Patient in the ICU, severely weak and lethargic and somewhat drowsy. He's undergoing hemodialysis and creatinine is elevated. Vitals are the same. Hemoglobin 7.7. He is on aspirin 81 mg Plavix and Protonix. I going to stop the insulin drip and start Levemir insulin and go up gradually with insulin sliding scale 05/24/2023 Patient was seen appropriate 3, is lying in the recliner comfortable, relaxed a pleasant. He denies any specific complaints. No chest pain dyspnea or other n ew complaint. He is hemodynamically stable. Stable and improving except for leukocytosis to 20,000. Patient currently sugar is controlled around 200 with Levemir 10 units twice a day. Metformin admission was because of persistent infection. B12 1355 which is elevated patient may benefit from rehab upon discharge 05/25/2023 Patient awake and alert, no chest pain, no dyspnea gets a breathing treatment. No new complaints. Vitals are stable. Hemoglobin 8.9, WBC 13,000, creatinine 6.5. Glucose control. Chest x-ray showing CHF but stable Patient remains on Eliquis and baby aspirin. Also he is on IV Lasix 40 mg twice daily. 05/26/2023 Patient lying in his chair comfortable denies any chest pain or dyspnea. He denies any other new complaint He is hemodynamically stable Labs are reviewed and his hemoglobin 9.3, WBC 11.1. Creatinine 5.9, sugar controlled. Chest x-ray showed bilateral pleural effusion and atelectasis, small Patient remains on eliquis 2.5 mg, IV Lasix 40 mg twice daily and aspirin 81 mg 05/27 patient seen and evaluated bedside, blood glucose better controlled. Denies shortness of breath or chest pain 05/28 : Patient seen and evaluated bedside, blood glucose under control receiving hemodialysis patient asymptomatic denies chest pain shortness of breath minimal urine output 8: Patient resting, patient stated he walked in the hallway. States he feels better in general. Continue current medications including NovoLog, and Levemir 12 units twice a day Objective - Vital Signs Vital signs: Vital Signs Temp 98.5 F 05/29/23 12:06 Pulse 63 05/29/23 12:06 Resp 16 05/29/23 12:06 BP 134/76 05/29/23 12:06 Pulse Ox 97 05/29/23 12:06 FiO2 50 05/13/23 15:13 Intake & Output 05/28/23 05/29/23 05/29/23 18:59 06:59 18:59 Intake Total 600 480 Output Total 2600 0 15 Balance -1999 0 465 Intake: Oral 480 Hemodialysis 600 Output: Urine 0 Stool 15 Hemodialysis 2600 Other: Voiding Method Urinal Urinal Urinal # Voids 1 # Bowel Movements 1 ABP, PAP, CO, CI - Last Documented Arterial Blood Pressure 116/42 Pulmonary Artery Pressure 29/9 Cardiac Output 4.5 Cardiac Index 2.2 - Exam PHYSICAL EXAMINATION: not in any acute distress. Well developed, well nourished. HEENT: Pupils are round and equally reacting to light. EOMI. No scleral icterus. No conjunctival pallor. Normocephalic, atraumatic. No pharyngeal erythema. No thyromegaly. CARDIOVASCULAR: Status post CABG, chest brace in place.. PULMONARY: Chest is clear to auscultation, no wheezing or crackles. ABDOMEN: Soft, nontender, nondistended, normoactive bowel sounds. No palpable organomegaly. MUSCULOSKELETAL: No joint swelling or deformity. EXTREMITIES: No cyanosis, clubbing, or pedal edema. NEUROLOGICAL: Gross neurological examination did not reveal any focal deficits. - Labs CBC & Chem 7: 05/29/23 07:25 05/29/23 07:25 Labs: Abnormal Lab Results - Last 24 Hours (Table) 05/28/23 05/28/23 05/29/23 Range/Units 16:08 19:59 07:25 RBC 2.79 L (4.30-5.90) m/uL Hgb 9.1 L (13.0-17.5) gm/dL Hct 27.2 L (39.0-53.0) % Sodium (137-145) mmol/L Chloride (98-107) mmol/L BUN (9-20) mg/dL Creatinine (0.66-1.25) mg/dL Glucose (74-99) mg/dL POC Glucose (mg/dL) 191 H 147 H (70-110) mg/dL Calcium (8.4-10.2) mg/dL AST (17-59) U/L Albumin (3.5-5.0) g/dL 05/29/23 05/29/23 Range/Units 07:25 11:34 RBC (4.30-5.90) m/uL Hgb (13.0-17.5) gm/dL Hct (39.0-53.0) % Sodium 134 L (137-145) mmol/L Chloride 97 L (98-107) mmol/L BUN 69 H (9-20) mg/dL Creatinine 6.17 H (0.66-1.25) mg/dL Glucose 69 L (74-99) mg/dL POC Glucose (mg/dL) 117 H (70-110) mg/dL Calcium 8.2 L (8.4-10.2) mg/dL AST 69 H (17-59) U/L Albumin 3.2 L (3.5-5.0) g/dL Assessment and Plan Assessment: Assessment and plan Coronary artery disease status post CABG surgery on 05/13 Ischemic cardiomyopathy Acute kidney injury on chronic kidney disease stage III. Requiring hemodialysis Acute metabolic encephalopathy Cardiomyopathy with ejection fraction 40-45% Diabetes mellitus History of Hypertension Hyperlipidemia History of pulmonary embolism on Eliquis * Continue current management including aspirin, Eliquis, metoprolol, amiodarone * Continue patient on Lantus and correctional insulin>> blood glucose ranging between 80's-150' * Nephrology following secondary to initiation of hemodialysis, last session hemodialysis 05/28 * Metabolic encephalopathy has improved patient is alert to person and situation * cardiothoracic surgery primary, pulmonary, cardiology, nephrology * Severity for insurance authorization for discharge
--- NOTE | 2023-05-29 16:10 | P.PN ---
Subjective Progress Note Date: 05/29/23 The patient is seen today 05/19/2023 in follow-up in the intensive care unit. He is currently sitting up in bed. Awake, alert, confused, slow to respond. Weak. EEG reveals background slowing of mild to moderate degree suggestive of encephalopathy. Continues to maintain good O2 saturations in the 90s on 3 L/m per nasal cannula. Ultrasound of the chest revealed no significant fluid for thoracentesis. He is receiving hemodialysis today. Yesterday they removed 500 ML's and hoping for thousand today. He is on norepinephrine at 0.02 mcg/kg/m. 0.9 normal saline at 20 ML's per hour. Insulin drip currently on hold. He is on antibiotics in the form of vancomycin and cefepime. He remains on bro nchodilators. Working with the incentive spirometer. Continued on oral amiodarone. Anticoagulated with Eliquis. He is status post 2 units of packed red blood cells this admission. Current hemoglobin 7.7. Platelets 147. White count 8.4. Sodium 134. Potassium 3.9. Bicarb 34. BUN 36. Creatinine 5.26. Glucose 155. AST 257. ALT 43. The patient is seen today 05/20/2023 in follow-up in the intensive care unit. He is currently up in a chair at the bedside. Awake and alert in no acute d istress. He remains afebrile. He is down to 2 L nasal cannula and maintaining O2 saturations in the 90s. Currently in sinus rhythm. Chest x-ray showing some atelectasis of the right lower lobe. Encouraged increased use the incentive spirometer. Left pleural chest tube remains in place. He did receive hemodialysis yesterday with 2 L of fluid removed. His norepinephrine has been off since 6:30 this morning. He is continued on vancomycin and cefepime. Cultures are revealing no growth. He is status post 2 units of packed red blood cells this admission. Current hemoglobin 8.7. Platelets 151. White count 9.2. Sodium 134. Potassium 3.8. Bicarb 26. BUN 40. Creatinine 4.55. Glucose 203. AST 207. ALT 28. Cortisol 28. He remains on DuoNeb inhalations. The patient is seen today 05/21/2020 in the intensive care unit. Distress. Plan is for hemodialysis with a goal of 3 L to be removed today. He is also to have a permacath placed. He'll be on a Wednesday schedule for his dialysis treatments. Chest x-ray shows improving aeration of the right lower lobe. Left pleural chest tube has been removed. No evidence of pneumothorax. He is remaining in sinus rhythm. He is maintaining O2 saturations in the 90s on 2 L/m per nasal cannula. He's been afebrile. Hemodynamically stable. He is status post 2 units of packed red blood cells this admission. Current hemoglobin 8.8. Platelets 175. White count 9.2. Sodium 133. Potassium 3.7. Bicarb 26. BUN 61. Creatinine 5.94. Glucose 116. Urine, blood, sputum cultures all revealed no growth. He remains on bronchodilators. Continues to work with the incentive spirometer. The patient is seen today 05/22/2023 in follow-up in the intensive care unit. Currently sitting up in a chair at the bedside. Awake and alert in no acute distress. Maintaining good O2 saturations in the 90s on room air. No IV fluids. He did receive hemodialysis yesterday with 2.8 L of fluid removed. He did have a right internal jugular hemodialysis catheter placed yesterday. Right femoral catheter was removed. Chest x-ray reveals small right pleural effusion with associated atelectasis. He is continuing to work with his incentive spirometer. Urine, blood and sputum cultures all revealed no growth. He remains on DuoNeb inhalations. Anticoagulated with Eliquis. Progress note dated 05/23/2023. The patient is seen today in room 383. He was transferred out of the intensive care unit yesterday. The patient's on room air. He's not receiving any IV fluids. The plan is for Wednesday/Wednesday/Wednesday hemodialysis. The patient did not have dialysis yesterday today. He's feeling a bit stronger day by day. Sti ll has a long way to go. White count 13.7, hemoglobin 10, hematocrit 29.2, and platelet count is normal. Sodium 133, potassium 4, chlorides 97, CO2 23, BUN 74, creatinine 6.89. Chest x-ray shows an small right pleural effusion. On today's evaluation of 05/24/2023, the patient is on room air oxygen. The patient is not having any major respiratory difficulties. The patient is using the incentive spirometer. Hemodialysis is being performed to a permacath in his right IJ. Chest x-ray from this morning shows a small amount of fluid in the right lung. His urine output is minimal at this point in time. No significant urine output and the patient remains in renal failure. No chest pain. No shortness of breath. He is postop day #11 following two-vessel bypass surgery. He also has an acute kidney injury and currently is on hemodialysis. His cardiac rhythm is sinus. Blood work from today shows a white cell count 20 with a hemoglobin of 10.2. BUN is 103 with a creatinine of 8 and a sodium level is at 132. On 05/25/2023, the patient is feeling well. Yesterday, he felt quite weak and lethargic following his hemodialysis. This morning, he seems to be slightly more awake. Denies having any chest pain. Surgery wound is dry clean and intact. The white cell count was elevated yesterday up to 20 and dropped down to 13. Chest x-ray still showing bilateral pleural effusions and pulmonary vascular congestion. He is not having any major respiratory difficulties for now. The patient underwent hemodialysis yesterday with removal of 2.5 L of fluid and irises also plan for today. No new complaints otherwise for now. The hemoglobin is at 8.9, BUN is 79 with a creatinine of 6.7 and the patient is not producing any significant urine output. Sodium level is at 132. On 05/26/2023, the patient is doing well. No specific complaints. The patient underwent hemodialysis yesterday and the patient is going to have another session of hemodialysis. He remains oliguric. Repeat chest x-ray from today shows pleural effusions bilaterally, small on the left a moderate-sized right. The patient having any signs of respiratory distress. The WBC count is 11 hemoglobin was at 5.3 and a platelet count is 206. BUN is at 61 with a creatinine of 5.9 and his sodium level is at 134. 05/27/2023, the patient is being seen for a follow-up. The patient has no specific complaints. Underwent hemodialysis yesterday and no plans for hemodialysis for today. The chest x-ray still showing a small right-sided pleural effusion. The patient is otherwise doing well. No specific complaints. He is on room air oxygen. The patient is going to go to [facility] for further rehabilitation. He is using the incentive spirometer. Medications are unchanged. The patient is on Levemir insulin. The patient on anticoagulation with Eliquis and the patient is still on amiodarone. The patient is on metoprolol 12.5 minutes to twice a day. The labs are stable. Hemogram is at 9.5. BUN is a 59 with a creatinine of 5.2 and the patient remains oliguric. Sodium level is at 135. 05/28/2023, the patient is stable. Chest x-ray still showing a right-sided pleural effusion and the ultrasound the chest showed a 4 cm pocket. Ultimately this will be monitored and hopefully recover with repeat hemodialysis. The patient is undergoing hemodialysis this morning. He is ambulating. He is alert and oriented 3. He remains oliguric and it produces a small amount of urine output. Awaiting transfer to rehabilitation. Afebrile. Labs from today shows a hemoglobin of 9.5, BUN is at 82 with a creatinine of 7.3 and a sodium level is at 134. On 05/29/2023, no new complaints and the patient is clinically stable. The patient is post coronary bypass surgery. The patient has developed an acute kidney injury on top of his chronic kidney failure and is currently requiring hemodialysis. His last session of hemodialysis was yesterday with ultrafiltration of 1.3 L. No urine output at this point in time. The patient has a hemoglobin of 9.1 with a white cell count of 9.9. Is at 60 mL of 6.7 and a sodium level is at 134. Ambulating. He is on room air oxygen. Chest x-ray still showing a right-sided pleural effusion. Objective - Vital Signs Vital signs: Vital Signs Temp 98.5 F 05/29/23 16:00 Pulse 57 L 05/29/23 16:00 Resp 16 05/29/23 16:00 BP 120/62 05/29/23 16:00 Pulse Ox 95 05/29/23 16:00 FiO2 50 05/13/23 15:13 Intake & Output 05/28/23 05/29/23 05/29/23 18:59 06:59 18:59 Intake Total 600 480 Output Total 2600 0 30 Balance -2000 0 450 Intake: Oral 480 Hemodialysis 600 Output: Urine 0 Stool 30 Hemodialysis 2600 Other: Voiding Method Urinal Urinal Urinal # Voids 1 # Bowel Movements 1 ABP, PAP, CO, CI - Last Documented Arterial Blood Pressure 116/42 Pulmonary Artery Pressure 29/9 Cardiac Output 4.5 Cardiac Index 2.2 - Exam CONSTITUTIONAL: Appears comfortable, cooperative, no acute distress RESPIRATORY: Lungs sounds diminished bilaterally, right greater than left. Respirations even, nonlabored. Currently on room air with oxygen saturation 94%. Able to achieve 7650-0780 mL on incentive spirometry. Strong non- productive cough. CARDIOVASCULAR: S1, S2 present. Regular rate and rhythm, sinus rhythm on telemetry. Sternum stable. Palpable peripheral pulses bilaterally. Generalized edema present. No calf pain or tenderness noted. Heart hugger, antiembolism stockings, SCDs present. GASTROINTESTINAL: Abdomen soft, nontender, nondistended, obese. Active bowel sounds present 4 quadrants. Tolerating diet. Positive bowel movement 05/25 GENITOURINARY: No further urine output, receiving HD INTEGUMENTARY: Skin is warm and dry. Anterior chest incision well approximated. Right lower extremity EVH site well approximated without redness or drainage. NEUROLOGIC: Cranial nerves II through XII intact MUSKULOSKELETAL: Able to move all extremities, strength equal bilaterally PSYCHIATRIC: Alert and oriented to person, place, year and situation INVASIVE LINES AND TUBES: Right chest PermCath present - Labs CBC & Chem 7: 05/29/23 07:25 05/29/23 07:25 Labs: Abnormal Lab Results - Last 24 Hours (Table) 05/28/23 05/28/23 05/29/23 Range/Units 16:08 19:59 07:25 RBC 2.79 L (4.30-5.90) m/uL Hgb 9.1 L (13.0-17.5) gm/dL Hct 27.2 L (39.0-53.0) % Sodium (137-145) mmol/L Chloride (98-107) mmol/L BUN (9-20) mg/dL Creatinine (0.66-1.25) mg/dL Glucose (74-99) mg/dL POC Glucose (mg/dL) 191 H 147 H (70-110) mg/dL Calcium (8.4-10.2) mg/dL AST (17-59) U/L Albumin (3.5-5.0) g/dL 05/29/23 05/29/23 Range/Units 07:25 11:34 RBC (4.30-5.90) m/uL Hgb (13.0-17.5) gm/dL Hct (39.0-53.0) % Sodium 134 L (137-145) mmol/L Chloride 97 L (98-107) mmol/L BUN 69 H (9-20) mg/dL Creatinine 6.17 H (0.66-1.25) mg/dL Glucose 69 L (74-99) mg/dL POC Glucose (mg/dL) 117 H (70-110) mg/dL Calcium 8.2 L (8.4-10.2) mg/dL AST 69 H (17-59) U/L Albumin 3.2 L (3.5-5.0) g/dL Assessment and Plan Plan: Coronary artery disease status post off-pump coronary artery bypass grafting 2 with a left internal thoracic artery to the left anterior descending artery, saphenous vein graft from the aorta to the posterior descending artery. Left atrial appendage ligation. Postoperative day # 16 Acute kidney injury requiring hemodialysis. The patient is having daily dialysis, and this morning the patient is undergoing another session of hemodialysis, last hemodialysis session was yesterday with an ultrafiltration of 1.7 L Bilateral pleural effusion small on the left, the site of the right , post thoracotomy and cardiac surgery, status continues to improve with dialysis. The patient's last chest x-ray was from today and the patient continues to have a small right-sided pleural effusion. Ultrasound of the chest shows a small pocket of fluid on the right measuring on 4 cm History of chronic kidney disease, stage IV. Ischemic cardiomyopathy with ejection fraction 40-45%. History of pulmonary embolism previously on Eliquis. Diabetes mellitus. Hypertension. CVA. BPH. Hyperlipidemia. Previous COVID-19 infection. Plan: Continue hemodialysis per nephrology, hemodialysis is being completed today and the patient is still oliguric . Last hemodialysis session was yesterday with an ultrafiltration of 1.7 L Respiratory status is stable and the patient is currently on room air oxygen The pleural effusion is small and being monitored Continue use of incentive spirometer Continue hemodialysis per nephrology Hemoglobin is stable Continue aspirin Continue amiodarone Continue Eliquis Continue metoprolol 12.5 mg by mouth twice a day Midodrine for hypotension Bicarb supplements We'll follow Subacute rehabilitation at [facility]. Still working on his insurance approval and this has been appealed. No active pulmonary issues and ongoing sign off the case and leave the rest of the management up to the medical and the cardiac team.
[2023-05-29 16:49] LABS: Glucose,Whole Blood 189 mg/dL (70-110)
[2023-05-29 20:15] LABS: Glucose,Whole Blood 130 mg/dL (70-110)
--- NOTE | 2023-05-30 | XR ---
EXAMINATION TYPE: XR chest 1V portable DATE OF EXAM: 05/29/2023 COMPARISON: 05/28/2023 INDICATION: Postop CABG TECHNIQUE: Single frontal view of the chest is obtained. FINDINGS: The heart size is normal. The pulmonary vasculature is normal. Small right pleural effusion is present. Double-lumen catheter is present on the right with the tips in the superior vena cava right atrial junction. IMPRESSION: 1. Small right pleural effusion and right lower lobe infiltrate. Correlate for atelectasis and pneumo jordon. Continued follow-up is recommended
[2023-05-30 06:19] LABS: Glucose,Whole Blood 87 mg/dL (70-110)
[2023-05-30] MEDS: INSULIN ASPART (NovoLOG) 100 UNIT/ML VIAL SQ SCH ×7 (06:28→20:44)
[2023-05-30] MEDS: PANTOPRAZOLE 40 MG TABLET PO SCH (06:34)
--- NOTE | 2023-05-30 08:11 | P.PN ---
Subjective Progress Note Date: 05/30/23 Principal diagnosis: Two-vessel coronary artery disease. Past medical history significant for nonischemic cardiomyopathy with an ejection fraction of 25-30% which improved to an ejection fraction of 45-50% with intense medical therapy, history of left ventricular thrombus on transthoracic 2-D echocardiogram completed on 05/23/2023 which was organized and did did not appear acute, history of pulmonary embolus on eliquis on an outpatient basis, hypertension, diabetes mellitus, history of CVA with some residual right-sided weakness, COVID-19 infection in early 2021, acute on chronic kidney disease with a baseline creatinine of 2.0, and prostate disorder. POD #17 Off pump coronary artery bypass grafting x 2. Left internal thoracic artery (in-situ) to left anterior descending artery, saphenous vein from aorta to posterior descending artery, Endoscopic right greater saphenous vein harvest, Left atrial appendage ligation using 35mm AtriClip, Graft flow measurements using the Nirvanix-Stim flow meter system, and an intraoperative transesophageal echocardiogram performed by anesthesia. Postoperative acute blood loss anemia and thrombocytopenia, expected given hemodilution. Intra and postoperative hypotension, unexpected Acute kidney injury, likely secondary to hypoperfusion and history of chronic kidney disease with a baseline creatinine of 2.0, status post placement of temporary hemodialysis catheter, and status post permacath placement with removal of right groin hemodialysis catheter. Mental status change, unsure of eitiology, likely metabolic encephalopathy vs new stroke, resolved Leukocytosis, unknown origin, remains afebrile, all cultures remained negative Medical debility The patient was seen and examined in follow-up today 05/30/2023 at his bedside on the cardiac stepdown unit. He is currently sitting up to the bedside chair, is awake, oriented 3 and is in no acute apparent distress. Denies any complaints of shortness of breath or pain at this time, although the patient reports she does get somewhat short of breath with ambulating in the hallway. Oxygen saturations are 96% on room air and he is achieving 1250 mL on his incentive spirometry with encouragement. Remote telemetry showing sinus bradycardia heart rate 55 BPM. He remains hemodynamically stable and is currently on no inotropic pressure support. He has been afebrile the last 24 hours. He reports he ambulated in the cardiac stepdown hallway 4 with assistance from family, nursing staff and therapy staff. Chest x-ray results reviewed, laboratory results remain pending. Hemodialysis is being managed by nephrology. Objective - Vital Signs Vital signs: Vital Signs Temp 97.6 F 05/30/23 04:00 Pulse 62 05/30/23 04:00 Resp 18 05/30/23 04:00 BP 132/77 05/30/23 04:00 Pulse Ox 96 05/30/23 04:00 FiO2 50 05/13/23 15:13 Intake & Output 05/29/23 05/30/23 05/30/23 18:59 06:59 18:59 Intake Total 840 Output Total 30 15 Balance 810 -15 Weight 110.5 kg Intake: Oral 840 Output: Stool 30 15 Other: Voiding Method Urinal Urinal # Voids 1 # Bowel Movements 1 ABP, PAP, CO, CI - Last Documented Arterial Blood Pressure 116/42 Pulmonary Artery Pressure 29/9 Cardiac Output 4.5 Cardiac Index 2.2 - Exam CONSTITUTIONAL: Sitting up to the bedside chair on the cardiac stepdown unit, appears comfortable, cooperative, no apparent acute distress, generalized weakness. HEENT: Neck is supple, no JVD, no lymphadenopathy. RESPIRATORY: Lungs sounds essentially clear throughout, diminished to his bilateral bases, right greater than left. Respirations are symmetrical and nonlabored. Currently on room air with oxygen saturations 96%. Able to achieve 1250 mL on his incentive spirometry. Strong cough. CARDIOVASCULAR: Regular rhythm and bradycardic rate. S1 and S2 present, negative for S3, gallop or murmur. Sternum is stable. Palpable peripheral pulses bilaterally, 1+ generalized edema. No calf pain or tenderness noted. Heart hugger in place. Knee-high GENNY hose and sequential compression devices in place to his bilateral lower extremities. GASTROINTESTINAL: Abdomen soft, nontender, nondistended. Active bowel sounds present 4 quadrants. Tolerating diet. Passing flatus. No guarding or rigidity. Bowel movement x 3 on 05/29/2023. GENITOURINARY: Hemodialysis 05/28/2023 with 1000 mL dialyzed. Small amount of urine output yesterday morning. Right upper chest hemodialysis permacath in place. INTEGUMENTARY: Skin is warm and dry with no evidence of clubbing or cyanosis. Midline sternal incision clean dry and well approximated, covered with dry intact dressing. Right lower extremity EVH sites well approximated without re dness or drainage. NEUROLOGIC: Cranial nerves II through XII intact. No Focal deficits. MUSKULOSKELETAL: Able to move all extremities, strength equal bilaterally, generalized weakness. Chronic right-sided weakness form previous CVA. PSYCHIATRIC: Alert, oriented 3 to person, place, and time. - Allied health notes Allied health notes reviewed: nursing - Labs CBC & Chem 7: 05/29/23 07:25 05/29/23 07:25 Labs: Abnormal Lab Results - Last 24 Hours (Table) 05/29/23 05/29/23 05/29/23 Range/Units 07:25 07:25 11:34 RBC 2.79 L (4.30-5.90) m/uL Hgb 9.1 L (13.0-17.5) gm/dL Hct 27.2 L (39.0-53.0) % Sodium 134 L (137-145) mmol/L Chloride 97 L (98-107) mmol/L BUN 69 H (9-20) mg/dL Creatinine 6.17 H (0.66-1.25) mg/dL Glucose 69 L (74-99) mg/dL POC Glucose (mg/dL) 117 H (70-110) mg/dL Calcium 8.2 L (8.4-10.2) mg/dL AST 69 H (17-59) U/L Albumin 3.2 L (3.5-5.0) g/dL 05/29/23 05/29/23 Range/Units 16:43 20:13 RBC (4.30-5.90) m/uL Hgb (13.0-17.5) gm/dL Hct (39.0-53.0) % Sodium (137-145) mmol/L Chloride (98-107) mmol/L BUN (9-20) mg/dL Creatinine (0.66-1.25) mg/dL Glucose (74-99) mg/dL POC Glucose (mg/dL) 189 H 130 H (70-110) mg/dL Calcium (8.4-10.2) mg/dL AST (17-59) U/L Albumin (3.5-5.0) g/dL - Imaging and Cardiology Chest x-ray: report reviewed, image reviewed Assessment and Plan Assessment: Two-vessel coronary artery disease, status post off pump 2 vessel coronary artery bypass grafting surgery Nonischemic cardiomyopathy with an EF of 45-50% History of left ventricular thrombus on transthoracic 2-D echocardiogram on 05/23/2023 which was organized and did not appear to be acute History of pulmonary embolus on eliquis on an outpatient basis History of hypertension Diabetes mellitus, with a preoperative hemoglobin A1c 7.4% History of CVA with some residual right-sided weakness COVID-19 infection in early 2021 Chronic kidney disease stage IV with a baseline creatinine of 2.0 Prostate disorder Postoperative acute blood loss anemia and thrombocytopenia, expected given hemodilution Intraoperative and Postoperative hypotension, unexpected Acute kidney injury, hemodynamic ATN with borderline urine output, likely secondary to hypoperfusion, status post temporary hemodialysis catheter placement Paroxysmal atrial fibrillation, status post ligation of left atrial appendage, currently in sinus rhythm Mental status change, unsure of eitiology, likely metabolic encephalopathy vs new stroke, resolved Leukocytosis, unclear etiology, afebrile, cultures negative Medical debility Plan: Continue to maximize medical therapy with low dose aspirin, statin, and beta keara with hold parameters. Continue amiodarone for atrial fibrillation prophylaxis, continue Eliquis. Encourage incentive spirometry use 10 times every hour while awake. Bronchodilators per pulmonology. Will monitor daily labs and chest x-rays. Electrolyte replacement per protocol. GI/DVT prophylaxis. Increase activity as tolerated. PT/OT/cardiac rehab following. Pain control with current medication regimen. No Toradol due to kidney disease. Insulin management per internal medicine service, patient's preoperative hemoglobin A1c was 7.4%. Patient needs tight glucose control to promote of sternal wound healing. Daily weights. Continue record strict inaccurate I's and O's. Patient is to shower daily. Hemodialysis recommendations per nephrology. Discharge planning is in place, waiting on appeal to insurance company for inpatient rehab. More recommendations to follow based on patient's clinical course. Time with Patient: Greater than 30
[2023-05-30] MEDS: IPRATROPIUM-ALBUTEROL 3 ML NEB INHALATION SCH ×4 (08:34→21:04)
--- NOTE | 2023-05-30 09:01 | XR ---
EXAMINATION TYPE: XR chest 2V DATE OF EXAM: 05/30/2023 COMPARISON: 05/29/2023 INDICATION: Postop CABG TECHNIQUE: Frontal and lateral views of the chest are obtained. FINDINGS: The heart size is normal. The pulmonary vasculature is normal. Right lower lobe infiltrate is present. Small right pleural effusion is present. Double-lumen cathete rs on the right with the tip distal superior vena cava region.. IMPRESSION: 1. Mild right lower lobe infiltrate with minimal right pleural effusion. Findings stable from compari son. Continued Follow-up is recommended
[2023-05-30] MEDS: INSULIN DETEMIR (LEVEMIR) 100 UNIT/ML SYR SQ SCH ×2 (09:42→20:46)
[2023-05-30] MEDS: AMIODARONE 200 MG TAB PO SCH (09:42)
[2023-05-30] MEDS: FOLIC ACID-VIT B COMPLEX-VIT C 1 CAP PO SCH (09:43)
[2023-05-30] MEDS: ASPIRIN 81 MG PO SCH (09:43)
[2023-05-30] MEDS: APIXABAN 2.5 MG TABLET PO SCH ×2 (09:43→20:46)
[2023-05-30] MEDS: FOLIC ACID 1 MG TAB PO SCH (09:43)
[2023-05-30] MEDS: METOPROLOL TARTRATE 12.5 MG TAB PO SCH ×2 (09:43→20:46)
[2023-05-30 09:49] LABS: HCT 29.1 % (39.0-53.0); HGB 9.3 gm/dL (13.0-17.5); Hypochromasia Slight; MCH 31.2 pg (25.0-35.0); MCHC 31.8 g/dL (31.0-37.0); MCV 98.2 fL (80.0-100.0); Mean Platelet Volume 7.7; Platelet Count 255 k/uL (150-450); RBC 2.96 m/uL (4.30-5.90); RDW 14.9 % (11.5-15.5); WBC 11.5 k/uL (3.8-10.6)
[2023-05-30 09:58] LABS: African American GFR (CKD) 7 (>60 ml/min/1.73 sqM); Anion Gap 15 mmol/L; Blood Urea Nitrogen 89 mg/dL (9-20); Calcium 8.2 mg/dL (8.4-10.2); Carbon Dioxide 23 mmol/L (22-30); Chloride 95 mmol/L (98-107); Glucose 118 mg/dL (74-99); Magnesium 2.3 mg/dL (1.6-2.3); Non-African American GFR(CKD) 6 (>60 ml/min/1.73 sqM); Sodium 133 mmol/L (137-145)
[2023-05-30 09:59] LABS: Phosphorus 9.4 mg/dL (2.5-4.5)
--- NOTE | 2023-05-30 11:30 | P.PN ---
Subjective Patient is seen for follow-up for acute kidney injury status post coronary artery bypass surgery. Patient has underlying chronic kidney disease NKF stage IV with baseline creatinine around 1.4 to 2 mg/dL Patient was started on hemodialysis on 05/17/2023 for oliguric ATN postop. Urine output remains minimal. No significant complaints today. Patient reports good appetite. Schedule for hemodialysis in a.m. Objective - Vital Signs Vital signs: Vital Signs Temp 97.4 F L 05/30/23 08:00 Pulse 63 05/30/23 08:45 Resp 16 05/30/23 08:45 BP 131/68 05/30/23 08:00 Pulse Ox 95 05/30/23 08:35 FiO2 50 05/13/23 15:13 Intake & Output 05/29/23 05/30/23 05/30/23 18:59 06:59 18:59 Intake Total 840 360 Output Total 30 15 Balance 810 -15 360 Weight 110.5 kg Intake: Oral 840 360 Output: Stool 30 15 Other: Voiding Method Urinal Urinal Urinal # Voids 1 # Bowel Movements 1 ABP, PAP, CO, CI - Last Documented Arterial Blood Pressure 116/42 Pulmonary Artery Pressure 29/9 Cardiac Output 4.5 Cardiac Index 2.2 - Exam Awake, comfortable, in no acute distress Examination lower extremity shows 1+ edema in bilateral lower extremities and upper extremities [employer]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[employer] exam grossly intact - Labs CBC & Chem 7: 05/30/23 08:53 05/30/23 08:53 Labs: Abnormal Lab Results - Last 24 Hours (Table) 05/29/23 05/29/23 05/29/23 Range/Units 11:34 16:43 20:13 WBC (3.8-10.6) k/uL RBC (4.30-5.90) m/uL Hgb (13.0-17.5) gm/dL Hct (39.0-53.0) % Sodium (137-145) mmol/L Chloride (98-107) mmol/L BUN (9-20) mg/dL Creatinine (0.66-1.25) mg/dL Glucose (74-99) mg/dL POC Glucose (mg/dL) 117 H 189 H 130 H (70-110) mg/dL Calcium (8.4-10.2) mg/dL Phosphorus (2.5-4.5) mg/dL 05/30/23 05/30/23 Range/Units 08:53 08:53 WBC 11.5 H (3.8-10.6) k/uL RBC 2.96 L (4.30-5.90) m/uL Hgb 9.3 L (13.0-17.5) gm/dL Hct 29.1 L (39.0-53.0) % Sodium 133 L (137-145) mmol/L Chloride 95 L (98-107) mmol/L BUN 89 H (9-20) mg/dL Creatinine 7.88 H* (0.66-1.25) mg/dL Glucose 118 H (74-99) mg/dL POC Glucose (mg/dL) (70-110) mg/dL Calcium 8.2 L (8.4-10.2) mg/dL Phosphorus 9.4 H* (2.5-4.5) mg/dL Assessment and Plan Assessment: 1. Acute kidney injury, oliguric ATN postoperatively. Started on hemodialysis on 05/17/2023. Patient remains oliguric. 2. Status post coronary artery bypass surgery on 05/13/2023 3. Coronary artery disease with ejection fraction 40-45%. 4. History of PE maintained on eliquis prior to admission 5. Chronic kidney disease NKF stage IV with baseline creatinine around 2 mg/dL since September 2022. Etiology is likely diabetic kidney disease. UA shows 2+ protein 6. Volume overload, improving 7. Hyperphosphatemia associated with acute kidney injury Plan: Continue Hemodialysis in rehab post discharge Add phosphate binders Add Nephrocaps Hemodialysis in a.m.
[2023-05-30 11:58] LABS: Glucose,Whole Blood 146 mg/dL (70-110)
[2023-05-30] MEDS: SEVELAMER 800 MG TAB PO SCH ×2 (12:40→17:25)
--- NOTE | 2023-05-30 12:47 | P.PN ---
Subjective Progress Note Date: 05/30/23 68 years old male with past medical history of Diabetes Mellitus, Hypertension, hyperlipidemia, benign prostatic hypertrophy, pulmonary embolism on blood thinner He was admitted for coronary artery disease affecting mainly to vessels and underwent coronary artery bypass surgery yesterday and he was on mechanical ventilation for a short lived time, eventually he got extubated. Comfortable in bed with no chest pain or dyspnea. Hemodynamically stable. Patient has mild worsening of creatinine 2.8, 1.3 yesterday 05/15/2023 Fascia temo bed comfortably with no complaints. Blood pressure still borderline . We will see improvement on 15. Creatinine up to 4.0. Nephrology was consulted. Patient is status post bolus of 500 mL of normal saline. His urine analysis is abnormal. Urine culture is negative. Bladder scan is negative. We don't a repeat urine culture Patient remains on aspirin Plavix and midodrine by surgery team 05/16/23 pt is awake alert with no dyspnea, no chest pain ,he denies any specific complaints but his renal function keep worsening and today his creatinine went up to 5.4, he was lasix drip at 20 mg per hour, pt is mostly will need hemodialysis per nephrology team pt is on dobutamine with poor urine output. 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 He is status post bypass surgery and today is postoperative day #4. Creatinine is elevated up to 7.3 today. He is getting treatment for hemodialysis started here in the ICU from. His Lasix drip and backup as well He remains on dopamine drip Blood pressure is borderline with systolic blood pressure is stable around 90s t o 100. Hemoglobin 7.7, WBC within the reference range today 9000. Glucose was elevated more than 300 despite doubling the dose of Levemir last night to 5 mg twice a day. Therefore he was started on insulin drip This was discussed with patient in the thoracic primary team 05/18/2023 Patient is very lethargic and tired looking today. Open eyes to verbal stimuli and answer questions. He follows commands. Because of his change mentation neurologist has been consulted from a most likely patient will require MRI of the brain and EEG to rule out intracranial lesions or seizure activities. Blood pressure was controlled Labs reviewed Patient remains on insulin drip, dopamine drip and IV vancomycin 05/19/2023 Patient in the ICU, severely weak and lethargic and somewhat drowsy. He's undergoing hemodialysis and creatinine is elevated. Vitals are the same. Hemoglobin 7.7. He is on aspirin 81 mg Plavix and Protonix. I going to stop the insulin drip and start Levemir insulin and go up gradually with insulin sliding scale 05/24/2023 Patient was seen appropriate 3, is lying in the recliner comfortable, relaxed a pleasant. He denies any specific complaints. No chest pain dyspnea or other n ew complaint. He is hemodynamically stable. Stable and improving except for leukocytosis to 20,000. Patient currently sugar is controlled around 200 with Levemir 10 units twice a day. Metformin admission was because of persistent infection. B12 1355 which is elevated patient may benefit from rehab upon discharge 05/25/2023 Patient awake and alert, no chest pain, no dyspnea gets a breathing treatment. No new complaints. Vitals are stable. Hemoglobin 8.9, WBC 13,000, creatinine 6.5. Glucose control. Chest x-ray showing CHF but stable Patient remains on Eliquis and baby aspirin. Also he is on IV Lasix 40 mg twice daily. 05/26/2023 Patient lying in his chair comfortable denies any chest pain or dyspnea. He denies any other new complaint He is hemodynamically stable Labs are reviewed and his hemoglobin 9.3, WBC 11.1. Creatinine 5.9, sugar controlled. Chest x-ray showed bilateral pleural effusion and atelectasis, small Patient remains on eliquis 2.5 mg, IV Lasix 40 mg twice daily and aspirin 81 mg 05/27 patient seen and evaluated bedside, blood glucose better controlled. Denies shortness of breath or chest pain 05/28 : Patient seen and evaluated bedside, blood glucose under control receiving hemodialysis patient asymptomatic denies chest pain shortness of breath minimal urine output 8: Patient resting, patient stated he walked in the hallway. States he feels better in general. Continue current medications including NovoLog, and Levemir 12 units twice a day 05/30: Patient seen and everted bedside, scheduled for hemodialysis 05/31, waiting for insurance authorization, cardiac surgery team family blood glucose better controlled Objective - Vital Signs Vital signs: Vital Signs Temp 97.4 F L 05/30/23 08:00 Pulse 66 05/30/23 12:11 Resp 18 05/30/23 12:11 BP 127/72 05/30/23 12:00 Pulse Ox 95 05/30/23 12:00 FiO2 50 05/13/23 15:13 Intake & Output 05/29/23 05/30/23 05/30/23 18:59 06:59 18:59 Intake Total 840 360 Output Total 30 15 Balance 810 -15 360 Weight 110.5 kg Intake: Oral 840 360 Output: Stool 30 15 Other: Voiding Method Urinal Urinal Urinal # Voids 1 # Bowel Movements 1 ABP, PAP, CO, CI - Last Documented Arterial Blood Pressure 116/42 Pulmonary Artery Pressure 29/9 Cardiac Output 4.5 Cardiac Index 2.2 - Exam PHYSICAL EXAMINATION: not in any acute distress. Well developed, well nourished. HEENT: Pupils are round and equally reacting to light. EOMI. No scleral icterus. No conjunctival pallor. Normocephalic, atraumatic. No pharyngeal erythema. No thyromegaly. CARDIOVASCULAR: Status post CABG, chest brace in place.. PULMONARY: Chest is clear to auscultation, no wheezing or crackles. ABDOMEN: Soft, nontender, nondistended, normoactive bowel sounds. No palpable organomegaly. MUSCULOSKELETAL: No joint swelling or deformity. EXTREMITIES: No cyanosis, clubbing, or pedal edema. NEUROLOGICAL: Gross neurological examination did not reveal any focal deficits. - Labs CBC & Chem 7: 05/30/23 08:53 05/30/23 08:53 Labs: Abnormal Lab Results - Last 24 Hours (Table) 05/29/23 05/29/23 05/30/23 Range/Units 16:43 20:13 08:53 WBC (3.8-10.6) k/uL RBC (4.30-5.90) m/uL Hgb (13.0-17.5) gm/dL Hct (39.0-53.0) % Sodium 133 L (137-145) mmol/L Chloride 95 L (98-107) mmol/L BUN 89 H (9-20) mg/dL Creatinine 7.88 H* (0.66-1.25) mg/dL Glucose 118 H (74-99) mg/dL POC Glucose (mg/dL) 189 H 130 H (70-110) mg/dL Calcium 8.2 L (8.4-10.2) mg/dL Phosphorus 9.4 H* (2.5-4.5) mg/dL 05/30/23 05/30/23 Range/Units 08:53 11:44 WBC 11.5 H (3.8-10.6) k/uL RBC 2.96 L (4.30-5.90) m/uL Hgb 9.3 L (13.0-17.5) gm/dL Hct 29.1 L (39.0-53.0) % Sodium (137-145) mmol/L Chloride (98-107) mmol/L BUN (9-20) mg/dL Creatinine (0.66-1.25) mg/dL Glucose (74-99) mg/dL POC Glucose (mg/dL) 146 H (70-110) mg/dL Calcium (8.4-10.2) mg/dL Phosphorus (2.5-4.5) mg/dL Assessment and Plan Assessment: Assessment and plan Coronary artery disease status post CABG surgery on 05/13 Ischemic cardiomyopathy Acute kidney injury on chronic kidney disease stage III. Requiring hemodialysis Acute metabolic encephalopathy Cardiomyopathy with ejection fraction 40-45% Diabetes mellitus History of Hypertension Hyperlipidemia History of pulmonary embolism on Eliquis * Continue current management including aspirin, Eliquis, metoprolol, amiodarone * Continue patient on Lantus and correctional insulin>> blood glucose ranging between 130's' * Nephrology following secondary to initiation of hemodialysis, last session hemodialysis 05/28 * Metabolic encephalopathy has improved patient is alert to person and situation * cardiothoracic surgery primary, pulmonary, cardiology, nephrology * Waiting on for insurance authorization for discharge
--- NOTE | 2023-05-30 12:48 | P.PN ---
Subjective Progress Note Date: 05/30/23 Subjective: Patient reports feeling tired. Slow improvement as compared to yesterday. No acute overnight events LABS: Hemoglobin 9.4, creatinine 5.1 BP 134/65, heart rate 63 05/24 Patient is postop day #11 for coronary artery bypass grafting 2 and seen today on the cardiac stepdown unit. Telemetry is a sinus rhythm. Heart rate is in the 60s, blood pressure 112/55, pulse ox 95% on room air. Patient is followed by nephrology for acute kidney injury on dialysis that started 05/17. Patient states he is feeling a bit better. He continues to have significant weakness, he states he is only able to stand and walk with assistance. He is concerned about his discharge plan. 05/25 The patient states that he is feeling a little bit stronger slowly improving. He is scheduled for hemodialysis today. Heart rate has been in the 60s, blood pressure 121/72, pulse ox 94% on room air. Repeat blood work reveals potassium 3.9, BUN 79 creatinine 6.73. Hemoglobin 8.9. Chest x-ray correlate for heart failure. Findings stable. 05/26 Patient denies having any chest pain, no shortness of breath. He continues to have weakness and fatigue. Heart rate is in the 60s, blood pressure 1/55, pulse ox 91-95% on room air. He is on dialysis schedule Wednesday. Patient is scheduled for transfer to [facility] for inpatient rehab tomorrow. 05/27 Patient denies having any chest pain. His main concern is that he has significant weakness. He states he is able to ambulate to the doorway only. He is to continue hemodialysis on Wednesday schedule. Patient is scheduled for discharge to [facility] for inpatient rehab today. Heart rate is in the 50s and 60s, blood pressure 138/69. Pulse ox 94% on room air. Repeat blood work reveals WBC 11.6, hemoglobin 9.5, sodium 135, potassium 4.4, BUN 59 creatinine 5.21. 05/28 Patient's insurance company has denied authorization for inpatient rehab as well as subacute rehab. No new concerns from the patient. He continues to have significant weakness with limited of ability to ambulate. He is undergoing HD today. Heart rate is in the 60s, blood pressure 117/75, pulse ox 96% on room air. 05/29 Patient denies having any chest pain or shortness of breath. He does have shortness of breath with exertion, walking. Her rate is in the 70s and 80s, blood pressure 106/64. Hemoglobin is 8.3. Electrolytes are normal. BUN 34 creatinine 1.1. Family has started appeal process with his insurance company to obtain authorization for inpatient rehab/subacute rehab 05/30 Patient denies having any chest pain or shortness of breath. His heart rate is in the 60s and blood pressure 131/67. Repeat blood work reveals WBC 11.5, hemoglobin 9.3. Sodium 133, potassium 5, BUN 89 creatinine 7.88. Patient is due for hemodialysis on Wednesday. PHYSICAL EXAMINATION Vital signs reviewed. CONSTITUTIONAL: No apparent distress. CHEST EXAMINATION: Lungs are clear to auscultation. No chest wall tenderness is noted on palpation or with deep breathing. HEART EXAMINATION: Regular rate and rhythm. S1, S2 heard. No murmurs, gallops or rub. EXTREMITIES: 2+ peripheral pulses, 1+ lower extremity edema and no calf tendern ess. NEUROLOGIC EXAMINATION: Patient is awake, alert and oriented x3. ASSESSMENT: 1. CAD with 911 DISPATCHER LAD, 911 DISPATCHER RCA status post ARAUZ to LAD and SVG to PDA 05/13 2. Ischemic cardiomyopathy EF previously 25-30% improved to 45-50% 3. Chronic systolic heart failure 4. Diabetes mellitus type 2 5. Hypertension 6. Acute kidney injury and Chronic kidney disease stage IV, patient on hemodialysis 7. Previous history of stroke 8. Previous history of LV thrombus 9. Postoperative episode of atrial fibrillation, paroxysmal PLAN: Continue current medications include aspirin 81 mg daily, Eliquis 2.5 mg twice daily, Metoprolol 12.5 mg twice daily, amiodarone 200 mg daily. Continue to hold Entresto and Aldactone due to ANURADHA. Continue supportive care. Discharge planning to [facility] for inpatient rehab. Nurse practitioner note has been reviewed, I agree with the documented findings and plan of care. Patient was seen and examined. Objective - Vital Signs Vital signs: Vital Signs Temp 97.4 F L 05/30/23 08:00 Pulse 63 05/30/23 08:45 Resp 16 05/30/23 08:45 BP 131/68 05/30/23 08:00 Pulse Ox 95 05/30/23 08:35 FiO2 50 05/13/23 15:13 Intake & Output 05/29/23 05/30/23 05/30/23 18:59 06:59 18:59 Intake Total 840 360 Output Total 30 15 Balance 810 -15 360 Weight 110.5 kg Intake: Oral 840 360 Output: Stool 30 15 Other: Voiding Method Urinal Urinal Urinal # Voids 1 # Bowel Movements 1 ABP, PAP, CO, CI - Last Documented Arterial Blood Pressure 116/42 Pulmonary Artery Pressure 29/9 Cardiac Output 4.5 Cardiac Index 2.2 - Labs CBC & Chem 7: 05/30/23 08:53 05/30/23 08:53 Labs: Abnormal Lab Results - Last 24 Hours (Table) 05/29/23 05/29/23 05/29/23 Range/Units 11:34 16:43 20:13 WBC (3.8-10.6) k/uL RBC (4.30-5.90) m/uL Hgb (13.0-17.5) gm/dL Hct (39.0-53.0) % Sodium (137-145) mmol/L Chloride (98-107) mmol/L BUN (9-20) mg/dL Creatinine (0.66-1.25) mg/dL Glucose (74-99) mg/dL POC Glucose (mg/dL) 117 H 189 H 130 H (70-110) mg/dL Calcium (8.4-10.2) mg/dL Phosphorus (2.5-4.5) mg/dL 05/30/23 05/30/23 Range/Units 08:53 08:53 WBC 11.5 H (3.8-10.6) k/uL RBC 2.96 L (4.30-5.90) m/uL Hgb 9.3 L (13.0-17.5) gm/dL Hct 29.1 L (39.0-53.0) % Sodium 133 L (137-145) mmol/L Chloride 95 L (98-107) mmol/L BUN 89 H (9-20) mg/dL Creatinine 7.88 H* (0.66-1.25) mg/dL Glucose 118 H (74-99) mg/dL POC Glucose (mg/dL) (70-110) mg/dL Calcium 8.2 L (8.4-10.2) mg/dL Phosphorus 9.4 H* (2.5-4.5) mg/dL
[2023-05-30 16:43] LABS: Glucose,Whole Blood 157 mg/dL (70-110)
[2023-05-30 20:41] LABS: Glucose,Whole Blood 139 mg/dL (70-110)
[2023-05-31 06:14] LABS: Glucose,Whole Blood 100 mg/dL (70-110)
[2023-05-31] MEDS: INSULIN ASPART (NovoLOG) 100 UNIT/ML VIAL SQ SCH ×7 (06:18→20:44)
[2023-05-31] MEDS: SEVELAMER 800 MG TAB PO SCH ×3 (06:59→17:18)
[2023-05-31] MEDS: INSULIN DETEMIR (LEVEMIR) 100 UNIT/ML SYR SQ SCH ×2 (06:59→20:44)
[2023-05-31] MEDS: PANTOPRAZOLE 40 MG TABLET PO SCH (07:00)
[2023-05-31] MEDS: IPRATROPIUM-ALBUTEROL 3 ML NEB INHALATION SCH ×4 (07:45→21:13)
--- NOTE | 2023-05-31 09:08 | P.PN ---
Subjective Progress Note Date: 05/31/23 Principal diagnosis: Two-vessel coronary artery disease. Past medical history significant for nonischemic cardiomyopathy with an ejection fraction of 25-30% which improved to an ejection fraction of 45-50% with intense medical therapy, history of left ventricular thrombus on transthoracic 2-D echocardiogram completed on 05/23/2023 which was organized and did did not appear acute, history of pulmonary embolus on eliquis on an outpatient basis, hypertension, diabetes mellitus, history of CVA with some residual right-sided weakness, COVID-19 infection in early 2021, acute on chronic kidney disease with a baseline creatinine of 2.0, and prostate disorder. POD #18 Off pump coronary artery bypass grafting x 2. Left internal thoracic artery (in-situ) to left anterior descending artery, saphenous vein from aorta to posterior descending artery, Endoscopic right greater saphenous vein harvest, Left atrial appendage ligation using 35mm AtriClip, Graft flow measurements using the Amiato-Stim flow meter system, and an intraoperative transesophageal echocardiogram performed by anesthesia. Postoperative acute blood loss anemia and thrombocytopenia, expected given hemodilution. Intra and postoperative hypotension, unexpected Acute kidney injury, likely secondary to hypoperfusion and history of chronic kidney disease with a baseline creatinine of 2.0, status post placement of temporary hemodialysis catheter, and status post permacath placement with removal of right groin hemodialysis catheter. Mental status change, unsure of eitiology, likely metabolic encephalopathy vs new stroke, resolved Leukocytosis, unknown origin, remains afebrile, all cultures remained negative Medical debility The patient was seen and examined in follow-up today 05/31/2023 at his bedside on the cardiac stepdown unit. He is currently sitting up to the bedside chair, is awake, oriented 3 and is in no acute apparent distress. Denies any complaints of shortness of breath or pain at this time. Oxygen saturations are 94% on room air and he is achieving 1000 mL on his incentive spirometry with encouragement. He remains hemodynamically stable and is currently on no inotropic pressor support. The patient ambulated in the cardiac stepdown unit hallway yesterday 4 times with standby assistance from nursing, therapy and family, tolerated well. The patient continues to report he does have some episodes of shortness of breath with ambulating. Chest x-ray was reviewed. He has been afebrile the last 24 hours. Remote telemetry showing normal sinus rhythm heart rate 70 bpm. Discharge planning is in place, anticipate discharge to inpatient rehab today as insurance authorization has been approved. Objective - Vital Signs Vital signs: Vital Signs Temp 97.6 F 05/31/23 03:46 Pulse 64 05/31/23 07:56 Resp 16 05/31/23 03:46 BP 128/73 05/31/23 03:46 Pulse Ox 93 L 05/31/23 03:46 FiO2 50 05/13/23 15:13 Intake & Output 05/30/23 05/31/23 05/31/23 18:59 06:59 18:59 Intake Total 960 420 Balance 960 420 Weight 110.9 kg Intake: Oral 960 420 Other: Voiding Method Urinal Urinal # Voids 0 0 # Bowel Movements 0 ABP, PAP, CO, CI - Last Documented Arterial Blood Pressure 116/42 Pulmonary Artery Pressure 29/9 Cardiac Output 4.5 Cardiac Index 2.2 - Exam CONSTITUTIONAL: Sitting up to the bedside chair on the cardiac stepdown unit, appears comfortable, cooperative, no apparent acute distress, generalized weakness. HEENT: Neck is supple, no JVD, no lymphadenopathy. RESPIRATORY: Lungs sounds essentially clear throughout, diminished to his bilateral bases, right greater than left. Respirations are symmetrical and nonlabored. Currently on room air with oxygen saturations 94%. Able to achieve 1000 mL on his incentive spirometry. Strong cough. CARDIOVASCULAR: Regular rhythm and bradycardic rate. S1 and S2 present, negative for S3, gallop or murmur. Sternum is stable. Palpable peripheral pulses bilaterally, 1+ generalized edema. No calf pain or tenderness noted. Heart hugger in place. Knee-high GENNY hose and sequential compression devices in place to his bilateral lower extremities. GASTROINTESTINAL: Abdomen soft, nontender, nondistended. Active bowel sounds present 4 quadrants. Tolerating diet. Passing flatus. No guarding or rigidity. Bowel movement this a.m. GENITOURINARY: Hemodialysis 05/28/2023 with 1000 mL dialyzed. Small amount of urine output yesterday morning. Right upper chest hemodialysis permacath in place. INTEGUMENTARY: Skin is warm and dry with no evidence of clubbing or cyanosis. Midline sternal incision clean dry and well approximated, covered with dry intact dressing. Right lower extremity EVH sites well approximated without redness or drainage. NEUROLOGIC: Cranial nerves II through XII intact. No Focal deficits. MUSKULOSKELETAL: Able to move all extremities, strength equal bilaterally, generalized weakness. Chronic right-sided weakness form previous CVA. PSYCHIATRIC: Alert, oriented 3 to person, place, and time. - Allied health notes Allied health notes reviewed: nursing - Labs CBC & Chem 7: 05/30/23 08:53 05/30/23 08:53 Labs: Abnormal Lab Results - Last 24 Hours (Table) 05/30/23 05/30/23 05/30/23 Range/Units 08:53 08:53 11:44 WBC 11.5 H (3.8-10.6) k/uL RBC 2.96 L (4.30-5.90) m/uL Hgb 9.3 L (13.0-17.5) gm/dL Hct 29.1 L (39.0-53.0) % Sodium 133 L (137-145) mmol/L Chloride 95 L (98-107) mmol/L BUN 89 H (9-20) mg/dL Creatinine 7.88 H* (0.66-1.25) mg/dL Glucose 118 H (74-99) mg/dL POC Glucose (mg/dL) 146 H (70-110) mg/dL Calcium 8.2 L (8.4-10.2) mg/dL Phosphorus 9.4 H* (2.5-4.5) mg/dL 05/30/23 05/30/23 Range/Units 16:41 20:40 WBC (3.8-10.6) k/uL RBC (4.30-5.90) m/uL Hgb (13.0-17.5) gm/dL Hct (39.0-53.0) % Sodium (137-145) mmol/L Chloride (98-107) mmol/L BUN (9-20) mg/dL Creatinine (0.66-1.25) mg/dL Glucose (74-99) mg/dL POC Glucose (mg/dL) 157 H 139 H (70-110) mg/dL Calcium (8.4-10.2) mg/dL Phosphorus (2.5-4.5) mg/dL - Imaging and Cardiology Chest x-ray: report reviewed, image reviewed Assessment and Plan Assessment: Two-vessel coronary artery disease, status post off pump 2 vessel coronary artery bypass grafting surgery Nonischemic cardiomyopathy with an EF of 45-50% History of left ventricular thrombus on transthoracic 2-D echocardiogram on 05/23/2023 which was organized and did not appear to be acute History of pulmonary embolus on eliquis on an outpatient basis History of hypertension Diabetes mellitus, with a preoperative hemoglobin A1c 7.4% 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 COVID-19 infection in early 2021 Chronic kidney disease stage IV with a baseline creatinine of 2.0 Prostate disorder Postoperative acute blood loss anemia and thrombocytopenia, expected given hemodilution Intraoperative and Postoperative hypotension, unexpected Acute kidney injury, hemodynamic ATN with borderline urine output, likely secondary to hypoperfusion, status post permacath hemodialysis catheter placement Paroxysmal atrial fibrillation, status post ligation of left atrial appendage, currently in sinus rhythm Mental status change, unsure of eitiology, likely metabolic encephalopathy vs new stroke, resolved Leukocytosis, unclear etiology, afebrile, cultures negative Medical debility Plan: Continue to maximize medical therapy with low dose aspirin, statin, and beta keara with hold parameters. Continue amiodarone for atrial fibrillation prophylaxis, continue Eliquis. Encourage incentive spirometry use 10 times every hour while awake. Bronchodilators per pulmonology. Will monitor daily labs and chest x-rays. Electrolyte replacement per protocol. GI/DVT prophylaxis. Increase activity as tolerated. PT/OT/cardiac rehab following. Pain control with current medication regimen. No Toradol due to kidney disease. Insulin management per internal medicine service, patient's preoperative hemoglobin A1c was 7.4%. Patient needs tight glucose control to promote of sternal wound healing. Daily weights. Continue record strict inaccurate I's and O's. Patient is to shower daily. Hemodialysis recommendations per nephrology. Discharge planning is in place, anticipate discharge to inpatient rehab today at [facility] More recommendations to follow based on patient's clinical course. Time with Patient: Greater than 30
[2023-05-31 09:57] LABS: HCT 25.5 % (39.0-53.0); HGB 8.5 gm/dL (13.0-17.5); MCH 32.1 pg (25.0-35.0); MCHC 33.4 g/dL (31.0-37.0); MCV 96.1 fL (80.0-100.0); Mean Platelet Volume 7.5; Platelet Count 240 k/uL (150-450); RBC 2.66 m/uL (4.30-5.90); RDW 14.5 % (11.5-15.5); WBC 10.4 k/uL (3.8-10.6)
[2023-05-31 10:11] LABS: ALT 36 U/L (4-49); AST 43 U/L (17-59); African American GFR (CKD) 6 (>60 ml/min/1.73 sqM); Alkaline Phosphatase 99 U/L (38-126); Anion Gap 19 mmol/L; Calcium 8.3 mg/dL (8.4-10.2); Carbon Dioxide 19 mmol/L (22-30); Chloride 96 mmol/L (98-107); Glucose 123 mg/dL (74-99); Non-African American GFR(CKD) 5 (>60 ml/min/1.73 sqM); Sodium 134 mmol/L (137-145); Total Bilirubin 0.7 mg/dL (0.2-1.3)
[2023-05-31 10:17] LABS: Blood Urea Nitrogen 102 mg/dL (9-20)
--- NOTE | 2023-05-31 10:35 | P.PN ---
Subjective HISTORY OF PRESENT ILLNESS: Patient is status post CABG 2 vessels. POD #18. Patient seen and examined this morning. He is sitting up in the chair. Patient denies any chest pain or pressure. He denies any shortness of breath. He has been up ambulating in the hallway. Telemetry reveals sinus mechanism. PHYSICAL EXAM: VITAL SIGNS: Reviewed. GENERAL: Well-developed in no acute distress. NECK: Supple. No JVD or thyromegaly LUNGS: Respirations even and unlabored. Lungs essentially clear to auscultation bilaterally. HEART: Regular rate and rhythm. S1 and S2 heard. EXTREMITIES: Normal range of motion. No clubbing or cyanosis. Peripheral pulses intact. No lower extremity edema ASSESSMENT: Coronary artery disease, status post two-vessel CABG Acute on chronic kidney disease, patient on hemodialysis Hypertension Hyperlipidemia Diabetes History of ischemic cardiomyopathy, previous 25-30%, now improved to 45-50% Postoperative episode of paroxysmal atrial fibrillation History of CVA Previous history of LV thrombus PLAN: Continue postoperative management per cardiothoracic surgery Continue current cardiac medications Increase activity as tolerated Encouraged use of incentive spirometer Patient to undergo hemodialysis today Patient is stable for discharge to [facility] for rehab from a cardiac standpoint Nurse practitioner note has been reviewed by physician. Signing provider agrees with the documented findings, assessment, and plan of care. Objective - Vital Signs Vital signs: Vital Signs Temp 97.7 F 05/31/23 08:00 Pulse 62 05/31/23 08:00 Resp 20 05/31/23 08:00 BP 126/69 05/31/23 08:00 Pulse Ox 92 L 05/31/23 08:00 FiO2 50 05/13/23 15:13 Intake & Output 05/30/23 05/31/23 05/31/23 18:59 06:59 18:59 Intake Total 960 420 Balance 960 420 Weight 110.9 kg Intake: Oral 960 420 Other: Voiding Method Urinal Urinal # Voids 0 0 # Bowel Movements 0 ABP, PAP, CO, CI - Last Documented Arterial Blood Pressure 116/42 Pulmonary Artery Pressure 29/9 Cardiac Output 4.5 Cardiac Index 2.2 - Labs CBC & Chem 7: 05/31/23 09:16 05/31/23 09:16 Labs: Abnormal Lab Results - Last 24 Hours (Table) 05/30/23 05/30/23 05/30/23 Range/Units 11:44 16:41 20:40 RBC (4.30-5.90) m/uL Hgb (13.0-17.5) gm/dL Hct (39.0-53.0) % Sodium (137-145) mmol/L Chloride (98-107) mmol/L Carbon Dioxide (22-30) mmol/L BUN (9-20) mg/dL Creatinine (0.66-1.25) mg/dL Glucose (74-99) mg/dL POC Glucose (mg/dL) 146 H 157 H 139 H (70-110) mg/dL Calcium (8.4-10.2) mg/dL Total Protein (6.3-8.2) g/dL Albumin (3.5-5.0) g/dL 05/31/23 05/31/23 Range/Units 09:16 09:16 RBC 2.66 L (4.30-5.90) m/uL Hgb 8.5 L (13.0-17.5) gm/dL Hct 25.5 L (39.0-53.0) % Sodium 134 L (137-145) mmol/L Chloride 96 L (98-107) mmol/L Carbon Dioxide 19 L (22-30) mmol/L BUN 102 H* (9-20) mg/dL Creatinine 9.09 H* (0.66-1.25) mg/dL Glucose 123 H (74-99) mg/dL POC Glucose (mg/dL) (70-110) mg/dL Calcium 8.3 L (8.4-10.2) mg/dL Total Protein 6.0 L (6.3-8.2) g/dL Albumin 3.0 L (3.5-5.0) g/dL
[2023-05-31 10:50] LABS: Glucose,Whole Blood 121 mg/dL (70-110)
--- NOTE | 2023-05-31 11:19 | P.PN ---
Subjective Patient is seen in follow-up for acute kidney injury on chronic kidney disease. Tolerating dialysis well. Remains oliguric. Oral intake has been fair. Mentation improved. Awake and alert. Vital signs are stable. General: No acute distress. HEENT: On nasal cannula. LUNGS: No audible rhonchi or wheezes. HEART: Regular rate and rhythm. ABDOMEN: No distention. Obese. EXTREMITITES: Trace edema. Objective - Vital Signs Vital signs: Vital Signs Temp 97.7 F 05/31/23 08:00 Pulse 65 05/31/23 10:45 Resp 19 05/31/23 10:45 BP 125/69 05/31/23 10:45 Pulse Ox 93 L 05/31/23 10:45 FiO2 50 05/13/23 15:13 Intake & Output 05/30/23 05/31/23 05/31/23 18:59 06:59 18:59 Intake Total 960 420 Balance 960 420 Weight 110.9 kg Intake: Oral 960 420 Other: Voiding Method Urinal Urinal # Voids 0 0 # Bowel Movements 0 ABP, PAP, CO, CI - Last Documented Arterial Blood Pressure 116/42 Pulmonary Artery Pressure 29/9 Cardiac Output 4.5 Cardiac Index 2.2 - Labs CBC & Chem 7: 05/31/23 09:16 05/31/23 09:16 Labs: Abnormal Lab Results - Last 24 Hours (Table) 05/30/23 05/30/23 05/30/23 Range/Units 11:44 16:41 20:40 RBC (4.30-5.90) m/uL Hgb (13.0-17.5) gm/dL Hct (39.0-53.0) % Sodium (137-145) mmol/L Chloride (98-107) mmol/L Carbon Dioxide (22-30) mmol/L BUN (9-20) mg/dL Creatinine (0.66-1.25) mg/dL Glucose (74-99) mg/dL POC Glucose (mg/dL) 146 H 157 H 139 H (70-110) mg/dL Calcium (8.4-10.2) mg/dL Total Protein (6.3-8.2) g/dL Albumin (3.5-5.0) g/dL 05/31/23 05/31/23 05/31/23 Range/Units 09:16 09:16 10:48 RBC 2.66 L (4.30-5.90) m/uL Hgb 8.5 L (13.0-17.5) gm/dL Hct 25.5 L (39.0-53.0) % Sodium 134 L (137-145) mmol/L Chloride 96 L (98-107) mmol/L Carbon Dioxide 19 L (22-30) mmol/L BUN 102 H* (9-20) mg/dL Creatinine 9.09 H* (0.66-1.25) mg/dL Glucose 123 H (74-99) mg/dL POC Glucose (mg/dL) 121 H (70-110) mg/dL Calcium 8.3 L (8.4-10.2) mg/dL Total Protein 6.0 L (6.3-8.2) g/dL Albumin 3.0 L (3.5-5.0) g/dL Assessment and Plan Plan: Assessment: 1. Acute kidney injury secondary to hemodynamic ATN. Creatinine 7.3 dated 05/17/2023. Oliguric. Started on hemodialysis 05/17/2023. No hydronephrosis noted on kidney ultrasound. 2. A. fib with RVR maintained on amiodarone and Lopressor. 3. 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 4. Metabolic acidosis secondary to acute kidney injury s/p bicarbonate drip. Expect improvement post postdialysis. 5. Cardiomyopathy. Ejection fraction of 40-45%. 6. Chronic kidney disease stage IV with baseline creatinine near 2. Suspect underlying diabetic kidney disease. 7. Diabetes mellitus. 8. Volume overload. Improved with ultrafiltration. 9. Anemia. Rule out iron deficiency. 10. Hyperphosphatemia secondary to acute kidney injury maintained on Renvela. Plan: Currently seen while undergoing hemodialysis. Next treatment on Wednesday. Phosphorus 4.5 dated 05/20/2023. Repeat level. Continue to monitor renal function and urine output. Monitor for renal recovery. Cortisol level not low.
[2023-05-31 11:40] LABS: Glucose,Whole Blood 113 mg/dL (70-110)
[2023-05-31] MEDS: MIDODRINE 5 MG TAB PO SCH ×2 (11:48→16:50)
--- NOTE | 2023-05-31 11:49 | XR ---
EXAMINATION TYPE: XR chest 2V DATE OF EXAM: 05/31/2023 6:46 AM COMPARISON: Chest radiographs from 05/30/2023. TECHNIQUE: XR chest 2V Frontal and lateral views of the chest. CLINICAL INDICATION:Male, 68 years old with history of post op CABG; FINDINGS: Lungs/Pleura: Right basilar airspace opacity similar prior. No evidence of focal consolidation or pne umothorax. Blunting of the costophrenic angles is present. Pulmonary vascularity: Unremarkable. Heart/mediastinum: Cardiomediastinal silhouette is enlarged and stable. Left atrial appendage occlusi on device is present. Musculoskeletal: No acute osseous pathology. Midline sternotomy wires are noted. Other findings: None Lines/Tubes: Right internal jugular central venous catheter with distal tip at the cavoatrial junction. IMPRESSION: 1. Stable exam with bilateral pleural effusions and some basilar atelectasis right greater than left . 2. Right central venous catheter with tip in stable position.
[2023-05-31] MEDS: METOPROLOL TARTRATE 12.5 MG TAB PO SCH ×2 (12:54→20:43)
[2023-05-31] MEDS: APIXABAN 2.5 MG TABLET PO SCH ×2 (12:55→20:43)
[2023-05-31] MEDS: FOLIC ACID-VIT B COMPLEX-VIT C 1 CAP PO SCH (12:55)
[2023-05-31] MEDS: AMIODARONE 200 MG TAB PO SCH (12:55)
[2023-05-31] MEDS: ASPIRIN 81 MG PO SCH (12:55)
[2023-05-31] MEDS: FOLIC ACID 1 MG TAB PO SCH (12:55)
--- NOTE | 2023-05-31 14:46 | P.PN ---
Subjective Progress Note Date: 05/31/23 68 years old male with past medical history of Diabetes Mellitus, Hypertension, hyperlipidemia, benign prostatic hypertrophy, pulmonary embolism on blood thinner He was admitted for coronary artery disease affecting mainly to vessels and underwent coronary artery bypass surgery yesterday and he was on mechanical ventilation for a short lived time, eventually he got extubated. Comfortable in bed with no chest pain or dyspnea. Hemodynamically stable. Patient has mild worsening of creatinine 2.8, 1.3 yesterday 05/15/2023 Fascia temo bed comfortably with no complaints. Blood pressure still borderline . We will see improvement on 15. Creatinine up to 4.0. Nephrology was consulted. Patient is status post bolus of 500 mL of normal saline. His urine analysis is abnormal. Urine culture is negative. Bladder scan is negative. We don't a repeat urine culture Patient remains on aspirin Plavix and midodrine by surgery team 05/16/23 pt is awake alert with no dyspnea, no chest pain ,he denies any specific complaints but his renal function keep worsening and today his creatinine went up to 5.4, he was lasix drip at 20 mg per hour, pt is mostly will need hemodialysis per nephrology team pt is on dobutamine with poor urine output. pt has mild leukocytosis sugar is more 300 so increased levemir to 5 u bid and novolog 5 u tid ac pt is on bicarb drip as well kept on asprin and plavix , and midodrine 05/17/2023 Patient remains in ICU closely monitored case/critical care team, the primary ca rdiothoracic surgery team and housekeeper supervisor as well as lamination technician. He is status post bypass surgery and today is postoperative day #4. Creatinine is elevated up to 7.3 today. He is getting treatment for hemodialysis started here in the ICU from. His Lasix drip and backup as well He remains on dopamine drip Blood pressure is borderline with systolic blood pressure is stable around 90s t o 100. Hemoglobin 7.7, WBC within the reference range today 9000. Glucose was elevated more than 300 despite doubling the dose of Levemir last night to 5 mg twice a day. Therefore he was started on insulin drip This was discussed with patient in the thoracic primary team 05/18/2023 Patient is very lethargic and tired looking today. Open eyes to verbal stimuli and answer questions. He follows commands. Because of his change mentation neurologist has been consulted from a most likely patient will require MRI of the brain and EEG to rule out intracranial lesions or seizure activities. Blood pressure was controlled Labs reviewed Patient remains on insulin drip, dopamine drip and IV vancomycin 05/19/2023 Patient in the ICU, severely weak and lethargic and somewhat drowsy. He's undergoing hemodialysis and creatinine is elevated. Vitals are the same. Hemoglobin 7.7. He is on aspirin 81 mg Plavix and Protonix. I going to stop the insulin drip and start Levemir insulin and go up gradually with insulin sliding scale 05/24/2023 Patient was seen appropriate 3, is lying in the recliner comfortable, relaxed a pleasant. He denies any specific complaints. No chest pain dyspnea or other n ew complaint. He is hemodynamically stable. Stable and improving except for leukocytosis to 20,000. Patient currently sugar is controlled around 200 with Levemir 10 units twice a day. Metformin admission was because of persistent infection. B12 1355 which is elevated patient may benefit from rehab upon discharge 05/25/2023 Patient awake and alert, no chest pain, no dyspnea gets a breathing treatment. No new complaints. Vitals are stable. Hemoglobin 8.9, WBC 13,000, creatinine 6.5. Glucose control. Chest x-ray showing CHF but stable Patient remains on Eliquis and baby aspirin. Also he is on IV Lasix 40 mg twice daily. 05/26/2023 Patient lying in his chair comfortable denies any chest pain or dyspnea. He denies any other new complaint He is hemodynamically stable Labs are reviewed and his hemoglobin 9.3, WBC 11.1. Creatinine 5.9, sugar controlled. Chest x-ray showed bilateral pleural effusion and atelectasis, small Patient remains on eliquis 2.5 mg, IV Lasix 40 mg twice daily and aspirin 81 mg 05/27 patient seen and evaluated bedside, blood glucose better controlled. Denies shortness of breath or chest pain 05/28 : Patient seen and evaluated bedside, blood glucose under control receiving hemodialysis patient asymptomatic denies chest pain shortness of breath minimal urine output 8: Patient resting, patient stated he walked in the hallway. States he feels better in general. Continue current medications including NovoLog, and Levemir 12 units twice a day 05/30: Patient seen and everted bedside, scheduled for hemodialysis 05/31, waiting for insurance authorization, cardiac surgery team family blood glucose better controlled 05/31. Patient seen and examined. Patient became diaphoretic during dialysis session, blood pressure was low. Was started on midodrine by nephrology REVIEW OF SYSTEMS: CONSTITUTIONAL: As mentioned above CARDIOVASCULAR: No chest pain, no palpitations, no syncope. PULMONARY: No shortness of breath, no cough, GASTROINTESTINAL: No diarrhea, no nausea, no vomiting, no abdominal pain. NEUROLOGICAL: No headaches, no weakness, PHYSICAL EXAMINATION: GENERAL: The patient is alert and oriented x3, not in any acute distress. Well developed, well nourished. HEENT: Pupils are round and equally reacting to light. EOMI. No scleral icterus. No conjunctival pallor. Normocephalic, atraumatic. No pharyngeal erythema. No thyromegaly. CARDIOVASCULAR: S1 and S2 present. No murmurs, rubs, or gallops. PULMONARY: Chest is clear to auscultation, no wheezing or crackles. ABDOMEN: Soft, nontender, nondistended, normoactive bowel sounds. No palpable organomegaly. MUSCULOSKELETAL: No joint swelling or deformity. EXTREMITIES: No cyanosis, clubbing, or pedal edema. NEUROLOGICAL: Gross neurological examination did not reveal any focal deficits. SKIN: No rashes. Assessment and plan Coronary artery disease status post CABG surgery on 05/13 Ischemic cardiomyopathy Acute kidney injury on chronic kidney disease stage III. Requiring hemodialysis Acute metabolic encephalopathy Cardiomyopathy with ejection fraction 40-45% Diabetes mellitus History of Hypertension Hyperlipidemia History of pulmonary embolism on Eliquis * Continue current management including aspirin, Eliquis, metoprolol, amiodarone * Continue patient on Lantus and correctional insulin>> blood glucose ranging between 130's' * Nephrology following, continued dialysis per nephrology, added midodrine * Metabolic encephalopathy resolved * cardiothoracic surgery primary, pulmonary, cardiology, nephrology * Waiting on for insurance authorization for discharge Labs and medication were reviewed.. Continue same treatment. Continue with symptomatic treatment. Resume home medication. Monitor labs and vitals. DVT and GI prophylaxis. Further recommendations as per clinical course of the patient Dictation was produced using [employer] dictation software. please excuse any grammatical, word or spelling errors. Objective - Vital Signs Vital signs: Vital Signs Temp 97.7 F 08/07/23 08:00 Pulse 65 05/31/23 10:45 Resp 19 05/31/23 10:45 BP 125/69 05/31/23 10:45 Pulse Ox 93 L 05/31/23 10:45 FiO2 50 05/13/23 15:13 Intake & Output 05/30/23 05/31/23 05/31/23 18:59 06:59 18:59 Intake Total 960 420 Balance 960 420 Weight 110.9 kg Intake: Oral 960 420 Other: Voiding Method Urinal Urinal # Voids 0 0 # Bowel Movements 0 ABP, PAP, CO, CI - Last Documented Arterial Blood Pressure 116/42 Pulmonary Artery Pressure 29/9 Cardiac Output 4.5 Cardiac Index 2.2 - Labs CBC & Chem 7: 05/31/23 09:16 05/31/23 09:16 Labs: Abnormal Lab Results - Last 24 Hours (Table) 05/30/23 05/30/23 05/30/23 Range/Units 11:44 16:41 20:40 RBC (4.30-5.90) m/uL Hgb (13.0-17.5) gm/dL Hct (39.0-53.0) % Sodium (137-145) mmol/L Chloride (98-107) mmol/L Carbon Dioxide (22-30) mmol/L BUN (9-20) mg/dL Creatinine (0.66-1.25) mg/dL Glucose (74-99) mg/dL POC Glucose (mg/dL) 146 H 157 H 139 H (70-110) mg/dL Calcium (8.4-10.2) mg/dL Total Protein (6.3-8.2) g/dL Albumin (3.5-5.0) g/dL 05/31/23 05/31/23 05/31/23 Range/Units 09:16 09:16 10:48 RBC 2.66 L (4.30-5.90) m/uL Hgb 8.5 L (13.0-17.5) gm/dL Hct 25.5 L (39.0-53.0) % Sodium 134 L (137-145) mmol/L Chloride 96 L (98-107) mmol/L Carbon Dioxide 19 L (22-30) mmol/L BUN 102 H* (9-20) mg/dL Creatinine 9.09 H* (0.66-1.25) mg/dL Glucose 123 H (74-99) mg/dL POC Glucose (mg/dL) 121 H (70-110) mg/dL Calcium 8.3 L (8.4-10.2) mg/dL Total Protein 6.0 L (6.3-8.2) g/dL Albumin 3.0 L (3.5-5.0) g/dL
--- NOTE | 2023-05-31 15:00 | P.PN ---
Subjective Progress Note Date: 05/31/23 Principal diagnosis: Status post CABG, postoperative day #18 This is a 68-year-old male patient with a known history of coronary artery disease, hypertension, hyperlipidemia, diabetes mellitus, benign prostatic hyperplasia, pulmonary embolism anticoagulated with Eliquis. He also has a history of COVID-19 infection and subsequent CVA felt to be secondary to hypercoagulability. In March 2023 at undergone cardiac catheterization that revealed a chronic total occlusion of the right coronary artery which fills by collaterals circulation, chronic total occlusion of the mid LAD by the bifurcation of the large diagonal branch with flush occlusion. The LAD fills by ipsilateral collaterals. He was recommended coronary artery bypass grafting. Echocardiogram revealed moderate LV dysfunction with ejection fraction of 40- 45%. He was brought in today for an elective surgery. He had undergone an off- pump coronary artery bypass grafting 2 with the left internal thoracic artery to the left anterior descending artery, saphenous vein graft from the aorta to the posterior descending artery. Left atrial appendage ligation with a 35mm Atriclip. He is seen postoperatively in the intensive care unit. He is intubated on the mechanical ventilator and assist control mode with a rate of 14, tidal volume 500, FiO2 50% and a PEEP of 10. Initial arterial blood gases revealed a PaO2 of 387, P CO2 of 41 and a pH of 7.31 on 100% FiO2. Sodium 137. Potassium 4.3. Bicarb 20. BUN 39. Creatinine 2.33. Glucose 154. Calcium 7.9. Magnesium 2.4. AST 21. ALT 16. Albumin 3.0. He is currently on dopamine at 2 mcg/kg/m. Milrinone at 0.3 mcg/kg/m. Norepinephrine at 0.06 mcg /kg/m propofol currently on hold. Insulin drip at 6 units per hour. Lactated Ringer's at 50 MLS per hour. PA pressure 43/19. Cardiac output 5.9. Cardiac index 2.8. Backup pacing at a rate of 50 bpm. Right and left pleural chest tubes in place with a small leak. Mediastinal chest tubes 2. Just x-ray reveals postsurgical changes. Bilateral chest tubes without evidence of sizable pneumothorax. Alamo-Misha catheter, mediastinal drain, endotracheal and gastric tube secured in place. Patient was reevaluated today on 05/14/2023, patient is doing well, he is postoperative day #1, patient is requiring multiple drips including dopamine at 3 mcg/kg/m, norepinephrine at 0.02 mcg/kg/m, he is on insulin at 4 units per hour, and lactated Ringer's at 40 mL per hour. Cardiac index is 2.2. Cardiac output is 4.5. Urine output is marginal between 15-20 mL per hour. Patient is on 1 L nasal cannula, does not seem to be in distress, sitting at a bedside chair. Chest x-ray showed minimal basilar atelectasis and small pleural effusions with cardiomegaly and postoperative changes. WBC count is 12.9 hemoglobin is 10.7. Basic metabolic profile is normal however his BUN is 43 creatinine is rising up to 2.83, baseline yesterday was 2.33. Patient is achieving about 1000 mL via incentive spirometry Reevaluated today on 05/15/2023, patient is sitting up at the bedside chair, awake, oriented 3, does not seem to be in any distress. Patient is on 2 L nasal cannula, O2 sats is 94%, remains on dopamine drip at 3 mcg/kg/m, his urine output remains marginal and poor, however the patient's creatinine jumped up significantly over the last 24 hours, I believe the patient may have developed acute tubular necrosis from hypotension, nonetheless clinically the patient is doing better than expected. He was seen by nephrology for his renal failure.pleural and mediastinal chest tubes noted, remain in place, Nelson catheter remains in place. Labs were reviewed today, creatinine is up to 4.03 BUN is 48. Hemoglobin is 9.9. WBC count is 15.3.chest x-ray showed mostly postsurgical changes and bilateral chest tubes without evidence of any pneumothorax. Small right-sided pleural effusion is noted. Patient was reevaluated today on 05/16/2023, doing well from the pulmonary perspective, but doing poorly from the renal perspective. Patient continues to develop worsening renal failure, being followed by nephrology, and I believe the patient may be heading towards hemodialysis. Creatinine is up to 5.9 this morning. Bicarb is low. Patient remains on dopamine at 3 mcg/kg/m with very poor urine output. Chest x-ray is showing postsurgical changes and small right- sided pleural effusion no pneumothorax, no evidence of pneumonia . Bicarb is low, creatinine is high, but sugar is 200, his ventricular epicardial pacemaker wires were removed yesterday. Mediastinal chest tube was removed yesterday, continues to have right IJ Cordis in place, and continues to have CVP monitoring. CVP today is 6. Right-sided and left-sided pleural chest tubes remain in place. Nelson catheter remains in place. Patient had only 120 mL of urine output in the last 8 hours. And about 400 in the last 24 hours. Patient was seen and reevaluated today on 05/31/2023, patient is undergoing hemodialysis today, doing well, relatively asymptomatic, is on room air, patient is being discharged possibly to [facility] today. Chest x-ray is reassuring clinically the patient is doing great, except he is requiring hemodialysis every other day. Labs were reviewed today including the risk of 10.4 hemoglobin 8.5 his electrolytes are normal renal profile showed a BUN of 102 creatinine 9.09 Objective - Vital Signs Vital signs: Vital Signs Temp 97.5 F L 05/31/23 12:04 Pulse 70 05/31/23 12:04 Resp 18 05/31/23 12:04 BP 117/57 05/31/23 12:04 Pulse Ox 96 05/31/23 12:04 FiO2 50 05/13/23 15:13 Intake & Output 05/30/23 05/31/23 05/31/23 18:59 06:59 18:59 Intake Total 960 1910 Output Total 489 Balance 960 1421 Weight 110.9 kg Intake: Oral 960 660 Hemodialysis 1250 Output: Hemodialysis 489 Other: Voiding Method Urinal Urinal # Voids 0 0 # Bowel Movements 0 ABP, PAP, CO, CI - Last Documented Arterial Blood Pressure 116/42 Pulmonary Artery Pressure 29/9 Cardiac Output 4.5 Cardiac Index 2.2 - Exam Physical Exam: Revealed a 68-year-old white male in no distress. On room air Head: Atraumatic, normocephalic. HEENT:[Neck is supple.] [No neck masses.] [No thyromegaly.] [No JVD.] Chest: Symmetrical chest expansion clear throughout no crackles or rhonchi or wheezes right subclavian hemodialysis catheter is noted Cardiac Exam: [Normal S1 and S2, no S3 gallop, no murmur.] Abdomen: [Soft, nontender, no megaly, no rebound, no guarding, normal bowel sounds.] Extremities: [No clubbing, trace of bipedal edema, no cyanosis.] Neurological Exam: [No focal neurologic deficit.] Alert oriented 3 Psychiatric: Normal mood affect and normal mental status examination. - Labs CBC & Chem 7: 05/31/23 09:16 05/31/23 09:16 Labs: Abnormal Lab Results - Last 24 Hours (Table) 05/30/23 05/30/23 05/31/23 Range/Units 16:41 20:40 09:16 RBC 2.66 L (4.30-5.90) m/uL Hgb 8.5 L (13.0-17.5) gm/dL Hct 25.5 L (39.0-53.0) % Sodium (137-145) mmol/L Chloride (98-107) mmol/L Carbon Dioxide (22-30) mmol/L BUN (9-20) mg/dL Creatinine (0.66-1.25) mg/dL Glucose (74-99) mg/dL POC Glucose (mg/dL) 157 H 139 H (70-110) mg/dL Calcium (8.4-10.2) mg/dL Total Protein (6.3-8.2) g/dL Albumin (3.5-5.0) g/dL 05/31/23 05/31/23 05/31/23 Range/Units 09:16 10:48 11:28 RBC (4.30-5.90) m/uL Hgb (13.0-17.5) gm/dL Hct (39.0-53.0) % Sodium 134 L (137-145) mmol/L Chloride 96 L (98-107) mmol/L Carbon Dioxide 19 L (22-30) mmol/L BUN 102 H* (9-20) mg/dL Creatinine 9.09 H* (0.66-1.25) mg/dL Glucose 123 H (74-99) mg/dL POC Glucose (mg/dL) 121 H 113 H (70-110) mg/dL Calcium 8.3 L (8.4-10.2) mg/dL Total Protein 6.0 L (6.3-8.2) g/dL Albumin 3.0 L (3.5-5.0) g/dL Assessment and Plan Assessment: Impression: Status post CABG, patient had off-pump coronary artery bypass grafting 2 with a left internal thoracic artery to the left anterior descending artery, saphenous vein graft from the aorta to the posterior descending artery. Left atrial appendage ligation. Postoperative day #18 Acute on chronic kidney disease, requiring hemodialysis Ischemic cardiomyopathy and LV dysfunction with ejection fraction 40-45% Type 2 diabetes with diabetic nephropathy Benign essential hypertension History of CVA, and residual right-sided weakness History of pulmonary embolism normally on eliquis. Recommendation: Continue hemodialysis Continue present supportive care measures Continue incentive spirometry Continue aspirin and Plavix beta blockers and statins ambulate as tolerated. Fully agree with discharge planning to rehab [facility] rehab unit. We will continue to follow. Time with Patient: Less than 30
[2023-05-31 16:00] LABS: % Iron Saturation 10.2 (15.00-50.00)
[2023-05-31 16:47] LABS: Glucose,Whole Blood 192 mg/dL (70-110)
[2023-05-31 20:30] LABS: Glucose,Whole Blood 155 mg/dL (70-110)
[2023-06-01 06:02] LABS: Glucose,Whole Blood 92 mg/dL (70-110)
[2023-06-01] MEDS: INSULIN ASPART (NovoLOG) 100 UNIT/ML VIAL SQ SCH ×4 (06:08→12:44)
[2023-06-01] MEDS: MIDODRINE 5 MG TAB PO SCH ×2 (06:34→11:42)
[2023-06-01] MEDS: SEVELAMER 800 MG TAB PO SCH (06:54)
[2023-06-01] MEDS: PANTOPRAZOLE 40 MG TABLET PO SCH (06:54)
[2023-06-01] MEDS: INSULIN DETEMIR (LEVEMIR) 100 UNIT/ML SYR SQ SCH (06:54)
--- NOTE | 2023-06-01 08:01 | P.PN ---
Subjective Progress Note Date: 06/01/23 Principal diagnosis: Two-vessel coronary artery disease. Past medical history significant for nonischemic cardiomyopathy with an ejection fraction of 25-30% which improved to an ejection fraction of 45-50% with intense medical therapy, history of left ventricular thrombus on transthoracic 2-D echocardiogram completed on 05/23/2023 which was organized and did did not appear acute, history of pulmonary embolus on eliquis on an outpatient basis, hypertension, diabetes mellitus, history of CVA with some residual right-sided weakness, COVID-19 infection in early 2021, acute on chronic kidney disease with a baseline creatinine of 2.0, and prostate disorder. POD #19 Off pump coronary artery bypass grafting x 2. Left internal thoracic artery (in-situ) to left anterior descending artery, saphenous vein from aorta to posterior descending artery, Endoscopic right greater saphenous vein harvest, Left atrial appendage ligation using 35mm AtriClip, Graft flow measurements using the Motiga-Stim flow meter system, and an intraoperative transesophageal echocardiogram performed by anesthesia. Postoperative acute blood loss anemia and thrombocytopenia, expected given hemodilution. Intra and postoperative hypotension, unexpected Acute kidney injury, likely secondary to hypoperfusion and history of chronic kidney disease with a baseline creatinine of 2.0, status post placement of temporary hemodialysis catheter, and status post permacath placement with removal of right groin hemodialysis catheter. Mental status change, unsure of eitiology, likely metabolic encephalopathy vs new stroke, resolved Leukocytosis, unknown origin, remains afebrile, all cultures remained negative Medical debility The patient was seen and examined in follow-up today 06/01/2023 at his bedside on the cardiac stepdown unit. The patient is sitting up to the bedside chair, is awake, alert, oriented 3 and is in no acute apparent distress. During hemodialysis yesterday the patient had an episode of hypotension with decreased oxygen saturations into the high 80s and hemodialysis was stopped per nephrology recommendations. Once the patient's dialysis was stopped, his blood pressure improved and he was able to get out of bed and actually tolerated walking in the hallway with family members, nursing staff and with assistance from therapy staff. Currently denies any complaints of pain or shortness of breath. Oxygen saturations are 95% on 2 L nasal cannula and he is achieving 1000 mL on his incentive spirometry with encouragement. Remote telemetry showing normal sinus rhythm heart rate 71 BPM. He remains hemodynamically stable and is currently on no inotropic or pressor support. He's been afebrile the last 24 hours. Discharge planning is in place. Chest x-ray has been reviewed and laboratory results remain pending. Objective - Vital Signs Vital signs: Vital Signs Temp 97.9 F 06/01/23 04:16 Pulse 60 06/01/23 04:16 Resp 16 06/01/23 04:16 BP 128/60 06/01/23 06:33 Pulse Ox 94 L 06/01/23 04:16 FiO2 50 05/13/23 15:13 Intake & Output 05/31/23 06/01/23 06/01/23 18:59 06:59 18:59 Intake Total 2390 Output Total 489 250 Balance 1901 -250 Weight 111.7 kg Intake: Oral 1140 Hemodialysis 1250 Output: Urine 250 Hemodialysis 489 Other: Voiding Method Urinal Urinal # Voids 0 0 # Bowel Movements 0 ABP, PAP, CO, CI - Last Documented Arterial Blood Pressure 116/42 Pulmonary Artery Pressure 29/9 Cardiac Output 4.5 Cardiac Index 2.2 - Exam CONSTITUTIONAL: Sitting up to the bedside chair on the cardiac stepdown unit, appears comfortable, cooperative, no apparent acute distress, generalized weakness. HEENT: Neck is supple, no JVD, no lymphadenopathy. RESPIRATORY: Lungs sounds essentially clear throughout, diminished to his bilateral bases, right greater than left. Respirations are symmetrical and nonlabored. Currently on 2 L nasal cannula with oxygen saturations 95%. Able to achieve 1000 mL on his incentive spirometry. Strong cough. CARDIOVASCULAR: Regular rhythm and rate. S1 and S2 present, negative for S3, gallop or murmur. Sternum is stable. Palpable peripheral pulses bilaterally, 1+ generalized edema. No calf pain or tenderness noted. Heart hugger in place. Knee-high GENNY hose and sequential compression devices in place to his bilateral lower extremities. GASTROINTESTINAL: Abdomen soft, nontender, nondistended. Active bowel sounds present 4 quadrants. Tolerating diet. Passing flatus. No guarding or rigidity. Bowel movement this a.m. GENITOURINARY: Hemodialysis 05/31/2023 with 490 mL dialyzed. Patient voided 250 mL of urine in the last 8 hours. Right upper chest hemodialysis permacath in pl [facility]. INTEGUMENTARY: Skin is warm and dry with no evidence of clubbing or cyanosis. Midline sternal incision clean dry and well approximated, covered with dry intact dressing. Right lower extremity EVH sites well approximated without redness or drainage. NEUROLOGIC: Cranial nerves II through XII intact. No Focal deficits. MUSKULOSKELETAL: Able to move all extremities, strength equal bilaterally, generalized weakness. Chronic right-sided weakness form previous CVA. PSYCHIATRIC: Alert, oriented 3 to person, place, and time. - Allied health notes Allied health notes reviewed: nursing - Labs CBC & Chem 7: 05/31/23 09:16 05/31/23 09:16 Labs: Abnormal Lab Results - Last 24 Hours (Table) 05/31/23 05/31/23 05/31/23 Range/Units 09:16 09:16 09:16 RBC 2.66 L (4.30-5.90) m/uL Hgb 8.5 L (13.0-17.5) gm/dL Hct 25.5 L (39.0-53.0) % Sodium 134 L (137-145) mmol/L Chloride 96 L (98-107) mmol/L Carbon Dioxide 19 L (22-30) mmol/L BUN 102 H* (9-20) mg/dL Creatinine 9.09 H* (0.66-1.25) mg/dL Glucose 123 H (74-99) mg/dL POC Glucose (mg/dL) (70-110) mg/dL Calcium 8.3 L (8.4-10.2) mg/dL Iron 25 L (65-175) UG/DL % Saturation 10.20 L (15.00-50.00) Transferrin 175.0 L (204.0-354.0) mg/dL Ferritin 648.0 H (22.0-322.0) ng/mL Total Protein 6.0 L (6.3-8.2) g/dL Albumin 3.0 L (3.5-5.0) g/dL 05/31/23 05/31/23 05/31/23 Range/Units 10:48 11:28 16:44 RBC (4.30-5.90) m/uL Hgb (13.0-17.5) gm/dL Hct (39.0-53.0) % Sodium (137-145) mmol/L Chloride (98-107) mmol/L Carbon Dioxide (22-30) mmol/L BUN (9-20) mg/dL Creatinine (0.66-1.25) mg/dL Glucose (74-99) mg/dL POC Glucose (mg/dL) 121 H 113 H 192 H (70-110) mg/dL Calcium (8.4-10.2) mg/dL Iron (65-175) UG/DL % Saturation (15.00-50.00) Transferrin (204.0-354.0) mg/dL Ferritin (22.0-322.0) ng/mL Total Protein (6.3-8.2) g/dL Albumin (3.5-5.0) g/dL 05/31/23 Range/Units 20:28 RBC (4.30-5.90) m/uL Hgb (13.0-17.5) gm/dL Hct (39.0-53.0) % Sodium (137-145) mmol/L Chloride (98-107) mmol/L Carbon Dioxide (22-30) mmol/L BUN (9-20) mg/dL Creatinine (0.66-1.25) mg/dL Glucose (74-99) mg/dL POC Glucose (mg/dL) 155 H (70-110) mg/dL Calcium (8.4-10.2) mg/dL Iron (65-175) UG/DL % Saturation (15.00-50.00) Transferrin (204.0-354.0) mg/dL Ferritin (22.0-322.0) ng/mL Total Protein (6.3-8.2) g/dL Albumin (3.5-5.0) g/dL - Imaging and Cardiology Chest x-ray: report reviewed, image reviewed Assessment and Plan Assessment: Two-vessel coronary artery disease, status post off pump 2 vessel coronary artery bypass grafting surgery Nonischemic cardiomyopathy with an EF of 45-50% History of left ventricular thrombus on transthoracic 2-D echocardiogram on 05/23/2023 which was organized and did not appear to be acute History of pulmonary embolus on eliquis on an outpatient basis History of hypertension Diabetes mellitus, with a preoperative hemoglobin A1c 7.4% 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 COVID-19 infection in early 2021 Chronic kidney disease stage IV with a baseline creatinine of 2.0 Prostate disorder Postoperative acute blood loss anemia and thrombocytopenia, expected given hemodilution Intraoperative and Postoperative hypotension, unexpected Acute kidney injury, hemodynamic ATN with borderline urine output, likely secondary to hypoperfusion, status post permacath hemodialysis catheter placement Paroxysmal atrial fibrillation, status post ligation of left atrial appendage, currently in sinus rhythm Mental status change, unsure of eitiology, likely metabolic encephalopathy vs new stroke, resolved Leukocytosis, unclear etiology, afebrile, cultures negative Medical debility Plan: Continue to maximize medical therapy with low dose aspirin, statin, and beta keara with hold parameters. Continue amiodarone for atrial fibrillation prophylaxis, continue Eliquis. Encourage incentive spirometry use 10 times every hour while awake. Bronchodilators per pulmonology. Will monitor daily labs and chest x-rays. Electrolyte replacement per protocol. GI/DVT prophylaxis. Increase activity as tolerated. PT/OT/cardiac rehab following. Pain control with current medication regimen. No Toradol due to kidney disease. Insulin management per internal medicine service, patient's preoperative hemoglobin A1c was 7.4%. Patient needs tight glucose control to promote of sternal wound healing. Daily weights. Continue record strict inaccurate I's and O's. Patient is to shower daily. Hemodialysis recommendations per nephrology. Midorine management per nephrology. Discharge planning is in place, anticipate discharge to inpatient rehab today at [facility] More recommendations to follow based on patient's clinical course. Time with Patient: Greater than 30
[2023-06-01] MEDS: IPRATROPIUM-ALBUTEROL 3 ML NEB INHALATION SCH ×2 (08:06→11:23)
[2023-06-01 08:08] VITALS: RESP 17; TEMP 98.4
--- NOTE | 2023-06-01 08:17 | XR ---
EXAMINATION TYPE: XR chest 1V portable DATE OF EXAM: 06/01/2023 HISTORY: Shortness of breath. COMPARISON: 05/31/2023 TECHNIQUE: Single view of the chest is submitted. FINDINGS: Large bore right-sided central venous line is unchanged. Persistent right basilar infiltrate, atelect asis and/or effusion which is stable in appearance. The heart is stable. Sternotomy wires mediastinal clips are in place. Left atrial clip noted. Hilar and mediastinal structures are within normal limits. Degenerative changes are seen of the dorsal spine. IMPRESSION: 1. Stable chest
[2023-06-01] MEDS: FOLIC ACID-VIT B COMPLEX-VIT C 1 CAP PO SCH (08:30)
[2023-06-01] MEDS: FOLIC ACID 1 MG TAB PO SCH (08:30)
[2023-06-01] MEDS: APIXABAN 2.5 MG TABLET PO SCH (08:30)
[2023-06-01] MEDS: METOPROLOL TARTRATE 12.5 MG TAB PO SCH (08:30)
[2023-06-01] MEDS: ASPIRIN 81 MG PO SCH (08:30)
[2023-06-01] MEDS: AMIODARONE 200 MG TAB PO SCH (08:30)
[2023-06-01 08:57] LABS: African American GFR (CKD) 7 (>60 ml/min/1.73 sqM); Anion Gap 14 mmol/L; Blood Urea Nitrogen 86 mg/dL (9-20); Calcium 8.3 mg/dL (8.4-10.2); Carbon Dioxide 22 mmol/L (22-30); Chloride 99 mmol/L (98-107); Glucose 89 mg/dL (74-99); Non-African American GFR(CKD) 6 (>60 ml/min/1.73 sqM); Potassium 4.4 mmol/L (3.5-5.1); Sodium 135 mmol/L (137-145)
--- NOTE | 2023-06-01 11:26 | P.PN ---
Subjective Patient is seen in follow-up for acute kidney injury on chronic kidney disease. Remains oliguric. Oral intake has been fair. Mentation improved. Awake and alert. Blood pressure dropped during treatment yesterday. Midodrine was added and UF was decreased. Vital signs are stable. General: No acute distress. HEENT: On nasal cannula. LUNGS: No audible rhonchi or wheezes. HEART: Regular rate and rhythm. ABDOMEN: No distention. Obese. EXTREMITITES: Trace edema. Objective - Vital Signs Vital signs: Vital Signs Temp 98.4 F 06/01/23 08:07 Pulse 76 06/01/23 08:19 Resp 17 06/01/23 08:07 BP 149/67 06/01/23 08:07 Pulse Ox 95 06/01/23 08:07 FiO2 50 05/13/23 15:13 Intake & Output 05/31/23 06/01/23 06/01/23 18:59 06:59 18:59 Intake Total 2390 180 Output Total 489 250 228 Balance 1901 -250 -48 Weight 111.7 kg Intake: Oral 1140 180 Hemodialysis 1250 Output: Urine 250 Post Void Residual 228 Hemodialysis 489 Other: Voiding Method Urinal Urinal Urinal # Voids 0 0 # Bowel Movements 0 ABP, PAP, CO, CI - Last Documented Arterial Blood Pressure 116/42 Pulmonary Artery Pressure 29/9 Cardiac Output 4.5 Cardiac Index 2.2 - Labs CBC & Chem 7: 05/31/23 09:16 06/01/23 07:29 Labs: Abnormal Lab Results - Last 24 Hours (Table) 05/31/23 05/31/23 05/31/23 Range/Units 09:16 11:28 16:44 Sodium (137-145) mmol/L BUN (9-20) mg/dL Creatinine (0.66-1.25) mg/dL POC Glucose (mg/dL) 113 H 192 H (70-110) mg/dL Calcium (8.4-10.2) mg/dL Phosphorus (2.5-4.5) mg/dL Iron 25 L (65-175) UG/DL % Saturation 10.20 L (15.00-50.00) Transferrin 175.0 L (204.0-354.0) mg/dL Ferritin 648.0 H (22.0-322.0) ng/mL 05/31/23 06/01/23 Range/Units 20:28 07:29 Sodium 135 L (137-145) mmol/L BUN 86 H (9-20) mg/dL Creatinine 8.50 H* (0.66-1.25) mg/dL POC Glucose (mg/dL) 155 H (70-110) mg/dL Calcium 8.3 L (8.4-10.2) mg/dL Phosphorus 9.0 H* (2.5-4.5) mg/dL Iron (65-175) UG/DL % Saturation (15.00-50.00) Transferrin (204.0-354.0) mg/dL Ferritin (22.0-322.0) ng/mL Assessment and Plan Plan: Assessment: 1. Acute kidney injury secondary to hemodynamic ATN. Creatinine 7.3 dated 05/17/2023. Oliguric. Started on hemodialysis 05/17/2023. No hydronephrosis noted on kidney ultrasound. 2. A. fib with RVR maintained on amiodarone and Lopressor. 3. 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 4. Metabolic acidosis secondary to acute kidney injury s/p bicarbonate drip. Improved post postdialysis. 5. Cardiomyopathy. Ejection fraction of 40-45%. 6. Chronic kidney disease stage IV with baseline creatinine near 2. Suspect underlying diabetic kidney disease. 7. Diabetes mellitus. 8. Volume overload. Improved with ultrafiltration. 9. Anemia. Iron deficiency noted. 10. Hyperphosphatemia secondary to acute kidney injury maintained on Renvela. Phosphorus 9.0 dated 06/01/2023. Plan: Hemodialysis tomorrow. Increase dose of Renvela. Continue to monitor renal function and urine output. Monitor for renal recovery. Cortisol level not low. Maintain midodrine. Hold for systolic blood pressure greater than 110. Check bladder scan to rule out urinary retention. Awaits IPR.
[2023-06-01 11:40] LABS: Glucose,Whole Blood 126 mg/dL (70-110)
--- NOTE | 2023-06-01 11:54 | P.PN ---
Subjective HISTORY OF PRESENT ILLNESS: Patient is status post CABG 2 vessels. POD #18. Patient seen and examined this morning. He is sitting up in the chair. Patient denies any chest pain or pressure. He denies any shortness of breath. He has been up ambulating in the hallway. Telemetry reveals sinus mechanism. 06/01/2023 Patient examined this morning. He is sitting up in the chair. He denies chest pain or pressure. Denies shortness of breath. Patient was supposed to be discharged yesterday however he had an episode of hypoxia and mild hypotension during hemodialysis. Vital signs are stable this morning. PHYSICAL EXAM: VITAL SIGNS: Reviewed. GENERAL: Well-developed in no acute distress. NECK: Supple. No JVD or thyromegaly LUNGS: Respirations even and unlabored. Lungs essentially clear to auscultation bilaterally. HEART: Regular rate and rhythm. S1 and S2 heard. EXTREMITIES: Normal range of motion. No clubbing or cyanosis. Peripheral pulses intact. No lower extremity edema ASSESSMENT: Coronary artery disease, status post two-vessel CABG Acute on chronic kidney disease, patient on hemodialysis Hypertension Hyperlipidemia Diabetes History of ischemic cardiomyopathy, previous 25-30%, now improved to 45-50% Postoperative episode of paroxysmal atrial fibrillation History of CVA Previous history of LV thrombus PLAN: Continue postoperative management per cardiothoracic surgery Continue current cardiac medications Increase activity as tolerated Encouraged use of incentive spirometer Patient to be discharged on 6 weeks of amiodarone Patient is stable for discharge to [facility] for rehab from a cardiac standpoint Nurse practitioner note has been reviewed by physician. Signing provider agrees with the documented findings, assessment, and plan of care. Objective - Vital Signs Vital signs: Vital Signs Temp 98.4 F 06/01/23 08:07 Pulse 68 06/01/23 11:35 Resp 17 06/01/23 08:07 BP 149/67 06/01/23 08:07 Pulse Ox 95 06/01/23 08:07 FiO2 50 05/13/23 15:13 Intake & Output 05/31/23 06/01/23 06/01/23 18:59 06:59 18:59 Intake Total 2390 180 Output Total 489 250 228 Balance 1901 -250 -48 Weight 111.7 kg Intake: Oral 1140 180 Hemodialysis 1250 Output: Urine 250 Post Void Residual 228 Hemodialysis 489 Other: Voiding Method Urinal Urinal Urinal # Voids 0 0 # Bowel Movements 0 ABP, PAP, CO, CI - Last Documented Arterial Blood Pressure 116/42 Pulmonary Artery Pressure 29/9 Cardiac Output 4.5 Cardiac Index 2.2 - Labs CBC & Chem 7: 05/31/23 09:16 06/01/23 07:29 Labs: Abnormal Lab Results - Last 24 Hours (Table) 05/31/23 05/31/23 05/31/23 Range/Units 09:16 16:44 20:28 Sodium (137-145) mmol/L BUN (9-20) mg/dL Creatinine (0.66-1.25) mg/dL POC Glucose (mg/dL) 192 H 155 H (70-110) mg/dL Calcium (8.4-10.2) mg/dL Phosphorus (2.5-4.5) mg/dL Iron 25 L (65-175) UG/DL % Saturation 10.20 L (15.00-50.00) Transferrin 175.0 L (204.0-354.0) mg/dL Ferritin 648.0 H (22.0-322.0) ng/mL 06/01/23 06/01/23 Range/Units 07:29 11:38 Sodium 135 L (137-145) mmol/L BUN 86 H (9-20) mg/dL Creatinine 8.50 H* (0.66-1.25) mg/dL POC Glucose (mg/dL) 126 H (70-110) mg/dL Calcium 8.3 L (8.4-10.2) mg/dL Phosphorus 9.0 H* (2.5-4.5) mg/dL Iron (65-175) UG/DL % Saturation (15.00-50.00) Transferrin (204.0-354.0) mg/dL Ferritin (22.0-322.0) ng/mL
[2023-06-01] MEDS ORDERED: TAMSULOSIN 0.4 MG CAP.ER.24H PO SCH (12:30)
[2023-06-01] MEDS ORDERED: SEVELAMER 800 MG TAB PO SCH (12:30)
--- NOTE | 2023-06-01 12:31 | P.PN ---
Subjective Progress Note Date: 06/01/23 Principal diagnosis: Status post CABG, postoperative day #19 This is a 68-year-old male patient with a known history of coronary artery disease, hypertension, hyperlipidemia, diabetes mellitus, benign prostatic hyperplasia, pulmonary embolism anticoagulated with Eliquis. He also has a history of COVID-19 infection and subsequent CVA felt to be secondary to hypercoagulability. In March 2023 at undergone cardiac catheterization that revealed a chronic total occlusion of the right coronary artery which fills by collaterals circulation, chronic total occlusion of the mid LAD by the bifurcation of the large diagonal branch with flush occlusion. The LAD fills by ipsilateral collaterals. He was recommended coronary artery bypass grafting. Echocardiogram revealed moderate LV dysfunction with ejection fraction of 40- 45%. He was brought in today for an elective surgery. He had undergone an off- pump coronary artery bypass grafting 2 with the left internal thoracic artery to the left anterior descending artery, saphenous vein graft from the aorta to the posterior descending artery. Left atrial appendage ligation with a 35mm Atriclip. He is seen postoperatively in the intensive care unit. He is intubated on the mechanical ventilator and assist control mode with a rate of 14, tidal volume 500, FiO2 50% and a PEEP of 10. Initial arterial blood gases revealed a PaO2 of 387, P CO2 of 41 and a pH of 7.31 on 100% FiO2. Sodium 137. Potassium 4.3. Bicarb 20. BUN 39. Creatinine 2.33. Glucose 154. Calcium 7.9. Magnesium 2.4. AST 21. ALT 16. Albumin 3.0. He is currently on dopamine at 2 mcg/kg/m. Milrinone at 0.3 mcg/kg/m. Norepinephrine at 0.06 mcg/ kg/m propofol currently on hold. Insulin drip at 6 units per hour. Lactated Ringer's at 50 MLS per hour. PA pressure 43/19. Cardiac output 5.9. Cardiac index 2.8. Backup pacing at a rate of 50 bpm. Right and left pleural chest tubes in place with a small leak. Mediastinal chest tubes 2. Just x-ray reveals postsurgical changes. Bilateral chest tubes without evidence of sizable pneumothorax. Henley-Misha catheter, mediastinal drain, endotracheal and gastric tube secured in place. Patient was reevaluated today on 05/14/2023, patient is doing well, he is postoperative day #1, patient is requiring multiple drips including dopamine at 3 mcg/kg/m, norepinephrine at 0.02 mcg/kg/m, he is on insulin at 4 units per hour, and lactated Ringer's at 40 mL per hour. Cardiac index is 2.2. Cardiac output is 4.5. Urine output is marginal between 15-20 mL per hour. Patient is on 1 L nasal cannula, does not seem to be in distress, sitting at a bedside chair. Chest x-ray showed minimal basilar atelectasis and small pleural effusions with cardiomegaly and postoperative changes. WBC count is 12.9 hemoglobin is 10.7. Basic metabolic profile is normal however his BUN is 43 creatinine is rising up to 2.83, baseline yesterday was 2.33. Patient is achieving about 1000 mL via incentive spirometry Reevaluated today on 05/15/2023, patient is sitting up at the bedside chair, awake, oriented 3, does not seem to be in any distress. Patient is on 2 L nasal cannula, O2 sats is 94%, remains on dopamine drip at 3 mcg/kg/m, his urine output remains marginal and poor, however the patient's creatinine jumped up significantly over the last 24 hours, I believe the patient may have developed acute tubular necrosis from hypotension, nonetheless clinically the patient is doing better than expected. He was seen by nephrology for his renal failure.pleural and mediastinal chest tubes noted, remain in place, Nelson catheter remains in place. Labs were reviewed today, creatinine is up to 4.03 BUN is 48. Hemoglobin is 9.9. WBC count is 15.3.chest x-ray showed mostly postsurgical changes and bilateral chest tubes without evidence of any pneumothorax. Small right-sided pleural effusion is noted. Patient was reevaluated today on 05/16/2023, doing well from the pulmonary perspective, but doing poorly from the renal perspective. Patient continues to develop worsening renal failure, being followed by nephrology, and I believe the patient may be heading towards hemodialysis. Creatinine is up to 5.9 this morning. Bicarb is low. Patient remains on dopamine at 3 mcg/kg/m with very poor urine output. Chest x-ray is showing postsurgical changes and small right- sided pleural effusion no pneumothorax, no evidence of pneumonia . Bicarb is low, creatinine is high, but sugar is 200, his ventricular epicardial pacemaker wires were removed yesterday. Mediastinal chest tube was removed yesterday, continues to have right IJ Cordis in place, and continues to have CVP monitoring. CVP today is 6. Right-sided and left-sided pleural chest tubes remain in place. Nelson catheter remains in place. Patient had only 120 mL of urine output in the last 8 hours. And about 400 in the last 24 hours. Patient was seen and reevaluated today on 05/31/2023, patient is undergoing hemodialysis today, doing well, relatively asymptomatic, is on room air, patient is being discharged possibly to [facility] rehab today. Chest x-ray is reassuring clinically the patient is doing great, except he is requiring hemodialysis every other day. Labs were reviewed today including the risk of 10.4 hemoglobin 8.5 his electrolytes are normal renal profile showed a BUN of 102 creatinine 9.09 Reevaluated today on 06/01/2023, patient was supposed to be transferred yesterday to [facility] rehabilitation, however the patient developed hypotension yesterday while having his hemodialysis, hence there was a delay on discharging the patient and he may be going to rehab today. Presently he remains on room air, does not seem to be in any distress, he is hemodynamically stable. Chest x-ray showed no acute process, no change. Basic metabolic profile is normal today, his BUN is 86 creatinine 8.5. Objective - Vital Signs Vital signs: Vital Signs Temp 98.4 F 06/01/23 08:07 Pulse 68 06/01/23 11:35 Resp 17 06/01/23 08:07 BP 149/67 06/01/23 08:07 Pulse Ox 95 06/01/23 08:07 FiO2 50 05/13/23 15:13 Intake & Output 05/31/23 06/01/23 06/01/23 18:59 06:59 18:59 Intake Total 2390 180 Output Total 489 250 228 Balance 1901 -250 -48 Weight 111.7 kg Intake: Oral 1140 180 Hemodialysis 1250 Output: Urine 250 Post Void Residual 228 Hemodialysis 489 Other: Voiding Method Urinal Urinal Urinal # Voids 0 0 # Bowel Movements 0 ABP, PAP, CO, CI - Last Documented Arterial Blood Pressure 116/42 Pulmonary Artery Pressure 29/9 Cardiac Output 4.5 Cardiac Index 2.2 - Exam Physical Exam: Revealed a 68-year-old white male in no distress. On room air Head: Atraumatic, normocephalic. HEENT:[Neck is supple.] [No neck masses.] [No thyromegaly.] [No JVD.] Chest: Symmetrical chest expansion clear throughout no crackles or rhonchi or wheezes right subclavian hemodialysis catheter is noted Cardiac Exam: [Normal S1 and S2, no S3 gallop, no murmur.] Abdomen: [Soft, nontender, no megaly, no rebound, no guarding, normal bowel sounds.] Extremities: [No clubbing, trace of bipedal edema, no cyanosis.] Neurological Exam: [No focal neurologic deficit.] Alert oriented 3 Psychiatric: Normal mood affect and normal mental status examination. - Labs CBC & Chem 7: 05/31/23 09:16 06/01/23 07:29 Labs: Abnormal Lab Results - Last 24 Hours (Table) 05/31/23 05/31/23 05/31/23 Range/Units 09:16 16:44 20:28 Sodium (137-145) mmol/L BUN (9-20) mg/dL Creatinine (0.66-1.25) mg/dL POC Glucose (mg/dL) 192 H 155 H (70-110) mg/dL Calcium (8.4-10.2) mg/dL Phosphorus (2.5-4.5) mg/dL Iron 25 L (65-175) UG/DL % Saturation 10.20 L (15.00-50.00) Transferrin 175.0 L (204.0-354.0) mg/dL Ferritin 648.0 H (22.0-322.0) ng/mL 06/01/23 06/01/23 Range/Units 07:29 11:38 Sodium 135 L (137-145) mmol/L BUN 86 H (9-20) mg/dL Creatinine 8.50 H* (0.66-1.25) mg/dL POC Glucose (mg/dL) 126 H (70-110) mg/dL Calcium 8.3 L (8.4-10.2) mg/dL Phosphorus 9.0 H* (2.5-4.5) mg/dL Iron (65-175) UG/DL % Saturation (15.00-50.00) Transferrin (204.0-354.0) mg/dL Ferritin (22.0-322.0) ng/mL Assessment and Plan Assessment: Impression: Status post CABG, patient had off-pump coronary artery bypass grafting 2 with a left internal thoracic artery to the left anterior descending artery, saphenous vein graft from the aorta to the posterior descending artery. Left atrial appendage ligation. Postoperative day #19 Acute on chronic kidney disease, requiring hemodialysis Ischemic cardiomyopathy and LV dysfunction with ejection fraction 40-45% Type 2 diabetes with diabetic nephropathy Benign essential hypertension History of CVA, and residual right-sided weakness History of pulmonary embolism normally on eliquis. Recommendation: Continue present supportive care measures Continue incentive spirometry Continue aspirin and Plavix beta blockers and statins ambulate as tolerated. Likely transfer to rehab today. Time with Patient: Less than 30
--- NOTE | 2023-06-01 13:02 | P.DS ---
Providers Date of admission: 05/13/23 05:36 Expected date of discharge: 06/01/23 Attending physician: Jaime Noland MD Consults: 05/13/23 12:12 Consult Physician Routine Consulting Provider: Raimundo Smith Consult Reason/Comments: med mgmt Do you want consulting provider notified?: Yes Consult Physician Routine Consulting Provider: Rolo Mclain Consult Reason/Comments: Artistic Director Consult: post cardiac surgery; [place] patient Do you want consulting provider notified?: Yes Consult Physician Routine Consulting Provider: Prabhu Metzger Consult Reason/Comments: Paster Supervisor Consult: post cardiac surgery Do you want consulting provider notified?: Yes 05/14/23 10:02 Consult Physician Routine Consulting Provider: Leila Dodson Consult Reason/Comments: Elevated BUN and creatinine Do you want consulting provider notified?: Yes 05/16/23 17:54 Consult Physician Routine Consulting Provider: Ha Meier Consult Reason/Comments: dialysis cath Do you want consulting provider notified?: Yes 05/18/23 07:39 Consult Physician Routine Consulting Provider: Josh Villarreal Consult Reason/Comments: Post op CABG, obtunded Do you want consulting provider notified?: Yes 05/20/23 08:20 Consult Physician Routine Consulting Provider: Ha Meier Consult Reason/Comments: permacath hemodialysis catheter placement Do you want consulting provider notified?: Yes 05/24/23 07:31 Consult Physician Routine Consulting Provider: Chris Skinner Consult Reason/Comments: IPR at discharge Do you want consulting provider notified?: Yes Primary care physician: Raimundo Smith Hospital Course: FINAL DIAGNOSIS: Two-vessel coronary artery disease, status post off pump 2 vessel coronary artery bypass grafting surgery Nonischemic cardiomyopathy with an EF of 45-50% History of chronic diastolic congestive heart failure NYHA class II History of left ventricular thrombus on transthoracic 2-D echocardiogram on 05/23/2023 which was organized and did not appear to be acute History of pulmonary embolus on eliquis on an outpatient basis History of hypertension Diabetes mellitus, with a preoperative hemoglobin A1c 7.4% 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, legally blind in his right eye with some residual visual disturbances COVID-19 infection in early 2021 Chronic kidney disease stage IV with a baseline creatinine of 2.0 Prostate disorder Postoperative acute blood loss anemia and thrombocytopenia, expected given hemodilution Intraoperative and Postoperative hypotension, unexpected Acute kidney injury, hemodynamic ATN with borderline urine output, likely secondary to hypoperfusion, status post permacath hemodialysis catheter placement and initiation of hemodialysis Paroxysmal atrial fibrillation, status post ligation of left atrial appendage, currently in sinus rhythm Mental status change, unsure of eitiology, likely metabolic encephalopathy vs new stroke, resolved Leukocytosis, unclear etiology, afebrile, cultures negative Medical debility PRINCIPAL PROCEDURE: Off pump coronary artery bypass grafting 2 with left internal thoracic artery in situ to the left anterior descending coronary artery, a saphenous vein graft from the aorta to the posterior descending coronary artery Endoscopic right greater saphenous vein harvest Left atrial appendage ligation using a 35 mm Atriclip Graft flow measurements using the [employer] flow meter system Intraoperative transesophageal echocardiogram performed by anesthesia Ultrasound guided placement of 23 centimeter dialysis catheter, right jugular approach and removal of right femoral catheter by Dr. Meier HISTORY OF PRESENT ILLNESS: This is a 68-year-old gentleman who is followed by Dr. Raimundo Smith for his primary care on an outpatient basis and follows with Dr. Segundo for his cardiology care. In April 2022 the patient experienced some right-sided weakness and subsequently underwent an MRI which showed a left temporal stroke. Also, in April 2022 underwent a transthoracic 2-D echocardiogram which demonstrated a left ventricular ejection fraction estimated at 25-30%, moderate concentric left ventricular hypertrophy, and apical filling defect suggestive of thrombus which was appearing to be somewhat organized and did not appear to be acute, no evidence for an atrial septal defect, and no pericardial effusion. Due to the findings on the transthoracic 2-D echocardiogram he was started on maximized medical therapy. He was also started on Eliquis 5 mg by mouth twice a day. Subsequently for follow-[facility] March [facility]. The cardiac catheterization demonstrated a chronic total occlusion of the right coronary artery which fills by contralateral collaterals and a chronic total occlusion of the mid LAD by the bifurcation of the large diagonal branch with flush occlusion. It also demonstrated the LAD fills by ipsilateral collaterals. On 05/04/2023 the patient underwent a repeat transthoracic 2-D echocardiogram which demonstrated a moderate left ventricular systolic dysfunction secondary to prior apical myocardial infarction with an ejection fraction that has improved at 40-45%, an echodense lesion in the apex suggestive of an apical thrombus and mild mitral valve regurgitation. Due to the findings on the cardiac catheterization the patient was referred to Dr. Jaime Noland from cardiothoracic surgery for further evaluation and treatment recommendations including myocardial revascularization surgery. Risks and and benefits of surgery, including the STS risk score were discussed with the patient, and knowing and understanding the risks the patient wished to proceed with myocardial revascularization surgery. HOSPITAL COURSE: On 05/13/2023, the patient was brought to the hospital, and after obtaining consent was taken the preoperative area, prepared in the usual fashion and subsequently taken to the operating room where Dr. Noland performed an off-pump coronary artery bypass grafting 2 with left internal thoracic artery in situ to the left anterior descending coronary artery, a saphenous vein graft from the aorta to the posterior descending coronary artery. Upon completion of the surgery the patient was transferred to the cardiovascular intensive care unit where he was recovered and monitored hemodynamically. He was subsequently extubated, all lines, tubes and supportive drips were discontinued when appropriate and he was transferred to the cardiac stepdown unit for further monitoring and rehabilitation. Postoperatively the patient did have a somewhat stormy recovery requiring placement of a dialysis catheter and was initiated on hemodialysis being managed by the nephrology. His oxygen has been titrated down, he continued to work with physical/occupational therapy, cardiac rehabilitation, he was tolerating oral diet, his pain has been well controlled without narcotics and he was ready to be discharged to inpatient rehab at [facility] on postoperative day #19 for further rehabilitation and monitoring. The patient has received verbal and written instructions regarding his medications, activity restrictions, signs and symptoms requiring physician notification upon discharge from inpatient rehab. Plan - Discharge Summary Discharge Rx Participant: Yes New Discharge Prescriptions: New Aspirin 81 mg PO DAILY tab Ipratropium-Albuterol Nebulize [Duoneb 0.5 mg-3 mg/3 ml Soln] 3 ml INHALATION RT-QID each Apixaban [Eliquis] 2.5 mg PO BID tab Metoprolol Tartrate [Lopressor] 12.5 mg PO BID tab Magnesium Hydroxide [Milk of Magnesia] 2,400 mg PO BID PRN ml PRN Reason: Constipation Sevelamer [Renvela] 2,400 mg PO TID-W/MEALS tab Sennosides-Docusate Sodium [Senokot-S] 2 each PO HS PRN tab PRN Reason: Constipation Amiodarone [Cordarone] 200 mg PO DAILY tab bisacodyL [Dulcolax] 10 mg RECTAL DAILY PRN suppositor PRN Reason: Constipation Tamsulosin [Flomax] 0.4 mg PO PC-BRKFST cap Insulin Detemir (Levemir) [Levemir] 12 unit SQ BID@0700,2100 each Folic Acid-Vit B Complex-Vit C [Nephrocaps] 1 each PO DAILY cap INSULIN ASPART (NovoLOG) [NovoLOG (formulary)] 4 unit SQ AC-TID each INSULIN ASPART (NovoLOG) [NovoLOG (formulary)] 0 unit SQ ACHS each Midodrine [ProAmatine] 10 mg PO AC-TID tab Pantoprazole [Protonix] 40 mg PO AC-BRKFST tab Rosuvastatin 40 mg PO DAILY Acetaminophen Tab [Tylenol] 1,000 mg PO Q6HR PRN tab PRN Reason: Fever And/ Or Pain Discontinued metFORMIN HCL 1,000 mg PO BID-W/MEALS carvediloL [Coreg] 6.25 mg PO BID-W/MEALS Sacubitril/Valsartan [Entresto 24 mg-26 mg Tablet] 1 tab PO BID-W/MEALS Furosemide [Lasix] 20 mg PO DAILY Liraglutide [Victoza 2-Javon] 1.2 mg SQ DAILY Spironolactone [Aldactone] 25 mg PO PC-LUNCH Rosuvastatin [Crestor] 40 mg PO DAILY Aspirin 81 mg PO DAILY 30 Days #30 tab Apixaban [Eliquis] 5 mg PO BID #0 Discharge Medication List Acetaminophen Tab [Tylenol] 1,000 mg PO Q6HR PRN tab 06/01/23 [Rx] Amiodarone [Cordarone] 200 mg PO DAILY tab 06/01/23 [Rx] Apixaban [Eliquis] 2.5 mg PO BID tab 06/01/23 [Rx] Aspirin 81 mg PO DAILY tab 06/01/23 [Rx] Folic Acid-Vit B Complex-Vit C [Nephrocaps] 1 each PO DAILY cap 06/01/23 [Rx] INSULIN ASPART (NovoLOG) [NovoLOG (formulary)] 0 unit SQ ACHS each 06/01/23 [Rx] INSULIN ASPART (NovoLOG) [NovoLOG (formulary)] 4 unit SQ AC-TID each 06/01/23 [Rx] Insulin Detemir (Levemir) [Levemir] 12 unit SQ BID@0700,2100 each 06/01/23 [Rx] Ipratropium-Albuterol Nebulize [Duoneb 0.5 mg-3 mg/3 ml Soln] 3 ml INHALATION RT-QID each 06/01/23 [Rx] Magnesium Hydroxide [Milk of Magnesia] 2,400 mg PO BID PRN ml 06/01/23 [Rx] Metoprolol Tartrate [Lopressor] 12.5 mg PO BID tab 06/01/23 [Rx] Midodrine [ProAmatine] 10 mg PO AC-TID tab 06/01/23 [Rx] Pantoprazole [Protonix] 40 mg PO AC-BRKFST tab 06/01/23 [Rx] Rosuvastatin 40 mg PO DAILY 06/01/23 [Rx] Sennosides-Docusate Sodium [Senokot-S] 2 each PO HS PRN tab 06/01/23 [Rx] Sevelamer [Renvela] 2,400 mg PO TID-W/MEALS tab 06/01/23 [Rx] Tamsulosin [Flomax] 0.4 mg PO PC-BRKFST cap 06/01/23 [Rx] bisacodyL [Dulcolax] 10 mg RECTAL DAILY PRN suppositor 06/01/23 [Rx] Follow up Appointment(s)/Referral(s): Raimundo Smith MD [Primary Care Provider] - 2 Weeks (Once discharged from [facility] inpatient rehab) Prabhu Metzger MD [STAFF PHYSICIAN] - 2 Weeks (Once discharged from [facility] inpatient rehab) Jimmy Segundo MD [STAFF PHYSICIAN] - 2 Weeks (Once discharged from [facility] inpatient rehab) [facility],Cardiac [NON-STAFF] - 4 Weeks (You will receive a phone call in approximately 4-6 weeks for evaluation for cardiac rehab) [facility] - ([facility] to arrange a visit, once discharged from [facility] inpatient rehab.) Jaime Noland MD [STAFF PHYSICIAN] - 2 Weeks (Once discharged from [facility] inpatient rehab) Activity/Diet/Wound Care/Special Instructions: DISCHARGE INSTRUCTIONS: 1. No driving for 4 weeks, or until physician gives their ok. 2. The patient should sleep in their own bed, no medical bed needed. 3. Stairs are not an issue. If the bedroom is upstairs, it is advised that the patient go up at night and down in the morning for the first week. Go slowly, using handrail and take 1 step at a time. 4. GENNY hose are to be worn for 30 days post surgery or until physician discontinues. 5. Heart hugger is to be worn 100% of the time until physician discontinues.(except when showering) 6. No lifting, pushing, or pulling more than 10 pounds for 12 weeks. The physician will advise of any restriction changes. 7. The patient is expected to continue the prescribed walking program. 8. Continue pain control per as needed orders. 9. Continue with incentive spirometry and splinting/heart hugger until otherwise directed by the physician. 10. Must shower daily using liquid antibacterial soap 11. Routine sternal incision care. No powders, lotions, ointments on incisions. No dressings are necessary on incisions unless they are draining. Dermabond tape is to remain on sternal incision until surgeon follow-up. 12. Please call surgeon/PUBLICATIONS PRODUCTION SUPERVISOR for temp greater than 101 F or purulent drainage from incisions. 13. You should weigh yourself daily, record and bring log with you to follow up appointments. 14. All prescriptions given by surgeon for 30 days. Refills need to be filled through protein chemist/primary care physician. 15. A Red armband has been placed on the patient. It should be worn for 30 days post discharge from surgery and will be removed by the cardiac surgeons. If an ER visit is necessary, please make sure the number on the Red armband is called before going to ER. 16. You have been referred to and are expected to begin Cardiac Rehab in approximately 4-6 weeks. 17. Please continue to bladder scan every 6 hours and when necessary postvoid residuals once transferred to inpatient rehab at [facility]. Please straight cath for greater than 300 mL of postvoid residual. 18. Hemodialysis management per nephrology recommendations. 19. Consult cardiology associates to follow patient at inpatient rehab at [facility]. HOME HEALTH SERVICES TO PROVIDE: RN SKILLED HOME CARE SERVICES FOR POST-OP SURGICAL PATIENTS WITH THE FOLLOW ING: Coronary Artery Bypass Surgery (CABG), Mitral Valve Replacement/Repair ( MVR), Aortic Valve Replacement/Repair (AVR) RN TO CONTINUE EDUCATION FROM ``ROAD TO A HEALTH HEART PATIENT EDUCATION MAN UAL (GIVEN TO PATIENT IN THE HOSPITAL) MEDICATION RECONCILIATION WITH EDUCATION NEEDED ON FIRST HOME VISIT EMPHASIZE IMPORTANCE OF WEARING BREAST SUPPORT/HEART HUGGER ENCOURAGE USE OF INCENTIVE SPIROMETER 10 X EVERY HOUR WHILE AWAKE ENCOURAGE UTILIZATION OF LOWER EXTREMITY COMPRESSION STOCKINGS/GENNY HOSE and ELEVATE LEGS ABOVE LEVEL OF HEART WHILE AT REST. ENCOURAGE AMBULATION 3-5x/day INCREASING TOLERATES, WHILE AVOIDING EXTREMES IN TEMPERATURE FREQUENCY: RN TO OPEN THE PATIENT WITHIN 24 HOURS OF DISCHARGE FROM THE HOSPITAL WITH TELEHEALTH INSTALLED AT [facility], RN TO VISIT 2-3 X A WEEK FOR 4 WEEKS ESTABLISHED BY PATIENT NEEDS. LABORATORY: CBC, CMP TO BE DRAWN ON THE THIRD DAY HOME, (RAN STAT) FAX RESULTS TO [phone]. TELEHEALTH PARAMETERS: WEIGHT: NOTIFY MD OF WEIGHT GAIN OF 2 LBS IN 24 HOURS OR 5 LBS IN ONE WEEK HR: NOTIFY MD OF HR <55 BPM OR HR>100 BPM BP: NOTIFY MD IF BP <90/55 OR BP>140/100 O2 SAT: NOTIFY MD IF PO2<93% ON ROOM AIR SEND TELEHEALTH REPORT TO LOAD TESTER AND CARDIOVASCULAR SURGEON THE FIRST WEEK OF CARE AND THEN BI-WEEKLY. PLEASE ADDITIONALLY COMMUNICATE ANY ABNORMALS AND NEW FINDINGS TO THE SURGEONS OFFICE.
--- NOTE | 2023-06-01 14:09 | P.PN ---
Subjective Progress Note Date: 06/01/23 68 years old male with past medical history of Diabetes Mellitus, Hypertension, hyperlipidemia, benign prostatic hypertrophy, pulmonary embolism on blood thinner He was admitted for coronary artery disease affecting mainly to vessels and underwent coronary artery bypass surgery yesterday and he was on mechanical ventilation for a short lived time, eventually he got extubated. Comfortable in bed with no chest pain or dyspnea. Hemodynamically stable. Patient has mild worsening of creatinine 2.8, 1.3 yesterday 05/15/2023 Fascia temo bed comfortably with no complaints. Blood pressure still borderline . We will see improvement on 15. Creatinine up to 4.0. Nephrology was consulted. Patient is status post bolus of 500 mL of normal saline. His urine analysis is abnormal. Urine culture is negative. Bladder scan is negative. We don't a repeat urine culture Patient remains on aspirin Plavix and midodrine by surgery team 05/16/23 pt is awake alert with no dyspnea, no chest pain ,he denies any specific complaints but his renal function keep worsening and today his creatinine went up to 5.4, he was lasix drip at 20 mg per hour, pt is mostly will need hemodialysis per nephrology team pt is on dobutamine with poor urine output. pt has mild leukocytosis sugar is more 300 so increased levemir to 5 u bid and novolog 5 u tid ac pt is on bicarb drip as well kept on asprin and plavix , and midodrine 05/17/2023 Patient remains in ICU closely monitored case/critical care team, the primary ca rdiothoracic surgery team and gaming worker as well as label designer. He is status post bypass surgery and today is postoperative day #4. Creatinine is elevated up to 7.3 today. He is getting treatment for hemodialysis started here in the ICU from. His Lasix drip and backup as well He remains on dopamine drip Blood pressure is borderline with systolic blood pressure is stable around 90s t o 100. Hemoglobin 7.7, WBC within the reference range today 9000. Glucose was elevated more than 300 despite doubling the dose of Levemir last night to 5 mg twice a day. Therefore he was started on insulin drip This was discussed with patient in the thoracic primary team 05/18/2023 Patient is very lethargic and tired looking today. Open eyes to verbal stimuli and answer questions. He follows commands. Because of his change mentation neurologist has been consulted from a most likely patient will require MRI of the brain and EEG to rule out intracranial lesions or seizure activities. Blood pressure was controlled Labs reviewed Patient remains on insulin drip, dopamine drip and IV vancomycin 05/19/2023 Patient in the ICU, severely weak and lethargic and somewhat drowsy. He's undergoing hemodialysis and creatinine is elevated. Vitals are the same. Hemoglobin 7.7. He is on aspirin 81 mg Plavix and Protonix. I going to stop the insulin drip and start Levemir insulin and go up gradually with insulin sliding scale 05/24/2023 Patient was seen appropriate 3, is lying in the recliner comfortable, relaxed a pleasant. He denies any specific complaints. No chest pain dyspnea or other n ew complaint. He is hemodynamically stable. Stable and improving except for leukocytosis to 20,000. Patient currently sugar is controlled around 200 with Levemir 10 units twice a day. Metformin admission was because of persistent infection. B12 1355 which is elevated patient may benefit from rehab upon discharge 05/25/2023 Patient awake and alert, no chest pain, no dyspnea gets a breathing treatment. No new complaints. Vitals are stable. Hemoglobin 8.9, WBC 13,000, creatinine 6.5. Glucose control. Chest x-ray showing CHF but stable Patient remains on Eliquis and baby aspirin. Also he is on IV Lasix 40 mg twice daily. 05/26/2023 Patient lying in his chair comfortable denies any chest pain or dyspnea. He denies any other new complaint He is hemodynamically stable Labs are reviewed and his hemoglobin 9.3, WBC 11.1. Creatinine 5.9, sugar controlled. Chest x-ray showed bilateral pleural effusion and atelectasis, small Patient remains on eliquis 2.5 mg, IV Lasix 40 mg twice daily and aspirin 81 mg 05/27 patient seen and evaluated bedside, blood glucose better controlled. Denies shortness of breath or chest pain 05/28 : Patient seen and evaluated bedside, blood glucose under control receiving hemodialysis patient asymptomatic denies chest pain shortness of breath minimal urine output 8: Patient resting, patient stated he walked in the hallway. States he feels better in general. Continue current medications including NovoLog, and Levemir 12 units twice a day 05/30: Patient seen and everted bedside, scheduled for hemodialysis 05/31, waiting for insurance authorization, cardiac surgery team family blood glucose better controlled 05/31. Patient seen and examined. Patient became diaphoretic during dialysis session, blood pressure was low. Was started on midodrine by nephrology 06/01. Patient seen and examined. Sitting upright in the chair, states he feels better. Medically stable for discharge REVIEW OF SYSTEMS: CONSTITUTIONAL: As mentioned above CARDIOVASCULAR: No chest pain, no palpitations, no syncope. PULMONARY: No shortness of breath, no cough, GASTROINTESTINAL: No diarrhea, no nausea, no vomiting, no abdominal pain. NEUROLOGICAL: No headaches, no weakness, PHYSICAL EXAMINATION: GENERAL: The patient is alert and oriented x3, not in any acute distress. Well developed, well nourished. HEENT: Pupils are round and equally reacting to light. EOMI. No scleral icterus. No conjunctival pallor. Normocephalic, atraumatic. No pharyngeal erythema. No thyromegaly. CARDIOVASCULAR: S1 and S2 present. No murmurs, rubs, or gallops. PULMONARY: Chest is clear to auscultation, no wheezing or crackles. ABDOMEN: Soft, nontender, nondistended, normoactive bowel sounds. No palpable organomegaly. MUSCULOSKELETAL: No joint swelling or deformity. EXTREMITIES: No cyanosis, clubbing, or pedal edema. NEUROLOGICAL: Gross neurological examination did not reveal any focal deficits. SKIN: No rashes. Assessment and plan Coronary artery disease status post CABG surgery on 05/13 Ischemic cardiomyopathy Acute kidney injury on chronic kidney disease stage III. Requiring hemodialysis Acute metabolic encephalopathy Cardiomyopathy with ejection fraction 40-45% Diabetes mellitus History of Hypertension Hyperlipidemia History of pulmonary embolism on Eliquis * Continue current management including aspirin, Eliquis, metoprolol, amiodarone * Continue patient on Lantus and correctional insulin>> blood glucose ranging between 130's' * Nephrology following, continued dialysis per nephrology, added midodrine * Metabolic encephalopathy resolved * cardiothoracic surgery primary, pulmonary, cardiology, nephrology * Waiting on for insurance authorization for discharge Labs and medication were reviewed.. Continue same treatment. Continue with symptomatic treatment. Resume home medication. Monitor labs and vitals. DVT and GI prophylaxis. Further recommendations as per clinical course of the p atient Dictation was produced using dragon dictation software. please excuse any grammatical, word or spelling errors. Objective - Vital Signs Vital signs: Vital Signs Temp 98.4 F 06/01/23 08:07 Pulse 76 06/01/23 08:19 Resp 17 06/01/23 08:07 BP 149/67 06/01/23 08:07 Pulse Ox 95 06/01/23 08:07 FiO2 50 05/13/23 15:13 Intake & Output 05/31/23 06/01/23 06/01/23 18:59 06:59 18:59 Intake Total 2390 180 Output Total 489 250 Balance 1901 -250 180 Weight 111.7 kg Intake: Oral 1140 180 Hemodialysis 1250 Output: Urine 250 Hemodialysis 489 Other: Voiding Method Urinal Urinal Urinal # Voids 0 0 # Bowel Movements 0 ABP, PAP, CO, CI - Last Documented Arterial Blood Pressure 116/42 Pulmonary Artery Pressure 29/9 Cardiac Output 4.5 Cardiac Index 2.2 - Labs CBC & Chem 7: 05/31/23 09:16 06/01/23 07:29 Labs: Abnormal Lab Results - Last 24 Hours (Table) 05/31/23 05/31/23 05/31/23 Range/Units 09:16 09:16 09:16 RBC 2.66 L (4.30-5.90) m/uL Hgb 8.5 L (13.0-17.5) gm/dL Hct 25.5 L (39.0-53.0) % Sodium 134 L (137-145) mmol/L Chloride 96 L (98-107) mmol/L Carbon Dioxide 19 L (22-30) mmol/L BUN 102 H* (9-20) mg/dL Creatinine 9.09 H* (0.66-1.25) mg/dL Glucose 123 H (74-99) mg/dL POC Glucose (mg/dL) (70-110) mg/dL Calcium 8.3 L (8.4-10.2) mg/dL Phosphorus (2.5-4.5) mg/dL Iron 25 L (65-175) UG/DL % Saturation 10.20 L (15.00-50.00) Transferrin 175.0 L (204.0-354.0) mg/dL Ferritin 648.0 H (22.0-322.0) ng/mL Total Protein 6.0 L (6.3-8.2) g/dL Albumin 3.0 L (3.5-5.0) g/dL 05/31/23 05/31/23 05/31/23 Range/Units 10:48 11:28 16:44 RBC (4.30-5.90) m/uL Hgb (13.0-17.5) gm/dL Hct (39.0-53.0) % Sodium (137-145) mmol/L Chloride (98-107) mmol/L Carbon Dioxide (22-30) mmol/L BUN (9-20) mg/dL Creatinine (0.66-1.25) mg/dL Glucose (74-99) mg/dL POC Glucose (mg/dL) 121 H 113 H 192 H (70-110) mg/dL Calcium (8.4-10.2) mg/dL Phosphorus (2.5-4.5) mg/dL Iron (65-175) UG/DL % Saturation (15.00-50.00) Transferrin (204.0-354.0) mg/dL Ferritin (22.0-322.0) ng/mL Total Protein (6.3-8.2) g/dL Albumin (3.5-5.0) g/dL 05/31/23 06/01/23 Range/Units 20:28 07:29 RBC (4.30-5.90) m/uL Hgb (13.0-17.5) gm/dL Hct (39.0-53.0) % Sodium 135 L (137-145) mmol/L Chloride (98-107) mmol/L Carbon Dioxide (22-30) mmol/L BUN 86 H (9-20) mg/dL Creatinine 8.50 H* (0.66-1.25) mg/dL Glucose (74-99) mg/dL POC Glucose (mg/dL) 155 H (70-110) mg/dL Calcium 8.3 L (8.4-10.2) mg/dL Phosphorus 9.0 H* (2.5-4.5) mg/dL Iron (65-175) UG/DL % Saturation (15.00-50.00) Transferrin (204.0-354.0) mg/dL Ferritin (22.0-322.0) ng/mL Total Protein (6.3-8.2) g/dL Albumin (3.5-5.0) g/dL
[2023-06-01 14:31] VITALS: PULSE 62
[2023-06-01 15:20] VITALS: BP 142/67
--- NOTE | 2023-06-02 14:14 | CDI ---
Documentation Clarification Form Date: 06/02/2023 01:15:29 PM From: Qian Iyer Phone: Admit Date: 05/13/2023 05:36:00 AM Patient Name: Kimo Birmingham Visit Number: [id number] Discharge Date: 06/01/2023 02:47:00 PM ATTENTION: The Clinical Documentation Specialists (CDI) and [facility] Coding Staff appreciate your assistance in clarifying documentation. Please respond to the clarification below the line at the bottom and electronically sign. The CDI & [facility] Coding staff will review the response and follow-up if needed. Please note: Queries are made part of the Legal Health Record. If you have any questions, please contact the author of this message via ITS. Dr. Dedrick Gleason Your patient is receiving the following: increased levemir to 5 u bid and novolog 5 u tid ac documented per Dr. Dedrick Gleason Sheet Progress Note 05/16. Please clarify what condition/diagnosis is being treated. History/Risk Factors: 68yo M, CAD w CABGsurgery, ICM, ANURADHA on CKD III, metabolic encephalopathy, DMII, HTN, HLD, Hx PE, BPH, post-opvasoplegia Clinical Indicators: Blood glucose: Initials 105-188 Sugar is more 300 Home medications: metformin HCL 1,000 mg PO BID w meals; Liraglutide1.2 mg SQ daily Treatment: increased levemir to 5 u bid and novolog 5 u tid ac Continue patient on Lantus and correctional insulin>> blood glucose ranging between 140s to 80s Progress Note 05/28 Dr Granados What diagnosis are you treating with levemir to 5 u bid and novolog 5 u tid? [ ] NIDDMII hyperglycemia is present as evidence by (additional clinical support): [ ] No additional diagnosis [ ] Other (please specify diagnosis) [ ] Unable to determine (Template Last Revised: December 2020) NIDDMII hyperglycemia is present as evidence by glu 105-188 MTDD
== END 2023-06-01 14:47 | DRG 235 ==
LOC: 2ORMAIN 05:36 → 2SICU 12:08 → 3SCARD 05-22 10:30
PROVIDERS: ADMIT Thoracic Surgery (Cardiothoracic Vascular Surgery); ATTEND Thoracic Surgery (Cardiothoracic Vascular Surgery)
PROC: 3E043XZ Introduction of Vasopressor into Central Vein, Percutaneous Approach (ICD-10-PCS; 2023-05-13)
PROC: 02L70CK Occlusion of Left Atrial Appendage with Extraluminal Device, Open Approach (ICD-10-PCS; principal; 2023-05-13 08:00)
PROC: 021009W Bypass Coronary Artery, One Artery from Aorta with Autologous Venous Tissue, Open Approach (ICD-10-PCS; principal; 2023-05-13 08:00)
PROC: 02100Z9 Bypass Coronary Artery, One Artery from Left Internal Mammary, Open Approach (ICD-10-PCS; principal; 2023-05-13 08:00)
PROC: 06BQ4ZZ Excision of Left Saphenous Vein, Percutaneous Endoscopic Approach (ICD-10-PCS; principal; 2023-05-13 08:00)
PROC: 4A0305C Measurement of Arterial Flow, Coronary, Open Approach (ICD-10-PCS; principal; 2023-05-13 08:00)
PROC: B24BZZ4 Ultrasonography of Heart with Aorta, Transesophageal (ICD-10-PCS; 2023-05-13 08:00)
PROC: 06HY33Z Insertion of Infusion Device into Lower Vein, Percutaneous Approach (ICD-10-PCS; 2023-05-16)
PROC: 5A1D70Z Performance of Urinary Filtration, Intermittent, Less than 6 Hours Per Day (ICD-10-PCS; 2023-05-18)
PROC: 02HV33Z Insertion of Infusion Device into Superior Vena Cava, Percutaneous Approach (ICD-10-PCS; 2023-05-21)
PROC: 0JH63XZ Insertion of Tunneled Vascular Access Device into Chest Subcutaneous Tissue and Fascia, Percutaneous Approach (ICD-10-PCS; 2023-05-21)
DX: I25.10 Atherosclerotic heart disease of native coronary artery without angina pectoris (principal); G93.41 Metabolic encephalopathy; N17.0 Acute kidney failure with tubular necrosis; I50.23 Acute on chronic systolic (congestive) heart failure; T81.19XA Other postprocedural shock, initial encounter; G72.81 Critical illness myopathy; I31.39 Other pericardial effusion (noninflammatory); I13.0 Hypertensive heart and chronic kidney disease with heart failure and stage 1 through stage 4 chronic kidney disease, or unspecified chronic kidney disease; I69.351 Hemiplegia and hemiparesis following cerebral infarction affecting right dominant side; N18.4 Chronic kidney disease, stage 4 (severe); E87.20 Acidosis, unspecified; R47.01 Aphasia; D62 Acute posthemorrhagic anemia; I42.8 Other cardiomyopathies; E11.22 Type 2 diabetes mellitus with diabetic chronic kidney disease; E11.65 Type 2 diabetes mellitus with hyperglycemia; I48.0 Paroxysmal atrial fibrillation; Z99.2 Dependence on renal dialysis; I95.81 Postprocedural hypotension; I95.3 Hypotension of hemodialysis; D63.1 Anemia in chronic kidney disease; E83.39 Other disorders of phosphorus metabolism; H53.461 Homonymous bilateral field defects, right side; I51.3 Intracardiac thrombosis, not elsewhere classified; D69.59 Other secondary thrombocytopenia; I25.82 Chronic total occlusion of coronary artery; H54.8 Legal blindness, as defined in USA; N40.0 Benign prostatic hyperplasia without lower urinary tract symptoms; I25.5 Ischemic cardiomyopathy; R09.02 Hypoxemia; R00.1 Bradycardia, unspecified; R82.81 Pyuria; R53.81 Other malaise; E78.5 Hyperlipidemia, unspecified; Y83.8 Other surgical procedures as the cause of abnormal reaction of the patient, or of later complication, without mention of misadventure at the time of the procedure; Z86.16 Personal history of COVID-19; Z86.711 Personal history of pulmonary embolism; I25.2 Old myocardial infarction; Z79.84 Long term (current) use of oral hypoglycemic drugs; Z79.01 Long term (current) use of anticoagulants; Z90.79 Acquired absence of other genital organ(s); Z79.82 Long term (current) use of aspirin; Z79.85 Long-term (current) use of injectable non-insulin antidiabetic drugs; Z79.899 Other long term (current) drug therapy; Z88.8 Allergy status to other drugs, medicaments and biological substances; Z82.49 Family history of ischemic heart disease and other diseases of the circulatory system
CPT/HCPCS: 36410; 36558; 70450; 71045; 71046; 76604; 76770; 76937; 77001; 80048; 80053; 80202; 81001; 82140; 82330; 82533; 82607; 82728; 82746; 82805; 83540; 83550; 83605; 83735; 84100; 84145; 85025; 85027; 85610; 85730; 86850; 86891; 86900; 86901; 86920; 87040; 87070; 87086; 87205; 87340; 90935; 93306; 94002; 94640; 94760; 95819

== ENCOUNTER 2023-06-24 14:44 | Emergency (ER) | payer MEDICARE ==
[2023-06-24 15:02] VITALS: RESP 16
--- NOTE | 2023-06-24 16:04 | XR ---
EXAMINATION TYPE: XR chest 2V DATE OF EXAM: 06/24/2023 3:53 PM COMPARISON: Chest radiographs from 06/01/2023 TECHNIQUE: XR chest 2V Frontal and lateral views of the chest. CLINICAL INDICATION:Male, 68 years old with history of syncope; FINDINGS: Lungs/Pleura: Moderate right pleural effusion with associated atelectasis redemonstrated. Pulmonary vascularity: Mild pulmonary vascular congestion. Heart/mediastinum: Cardiomediastinal silhouette is enlarged and stable. Left atrial appendage occlusi on devices present. Musculoskeletal: No acute osseous pathology. Midline sternotomy wires are noted and stable. Other findings: None Lines/Tubes: Right IJ dialysis catheter within the superior cavoatrial junction . IMPRESSION: Overall similar examination with moderate right pleural effusions associated atelectasis, cardiomegal y, and pulmonary vascular congestion. Correlate for CHF exacerbation.
[2023-06-24 16:23] LABS: Basophils % (A) 0 %; Eosinophils # (A) 0.2 k/uL (0-0.7); Eosinophils % (A) 2 %; HCT 27.6 % (39.0-53.0); HGB 9.1 gm/dL (13.0-17.5); Lymphocytes # (A) 1.1 k/uL (1.0-4.8); Lymphocytes % (A) 11 %; MCH 30.8 pg (25.0-35.0); MCHC 33.1 g/dL (31.0-37.0); MCV 93.3 fL (80.0-100.0); Mean Platelet Volume 6.9; Monocytes # (A) 0.6 k/uL (0-1.0); Monocytes % (A) 6 %; Neutrophils # (A) 7.8 k/uL (1.3-7.7); Neutrophils % (A) 79 %; Platelet Count 284 k/uL (150-450); RBC 2.96 m/uL (4.30-5.90); RDW 14.5 % (11.5-15.5); WBC 9.9 k/uL (3.8-10.6)
[2023-06-24 16:36] LABS: Partial Thromboplastin Time 24.2 sec (22.0-30.0); Prothrombin Time 10.9 sec (9.0-12.0)
[2023-06-24 16:52] LABS: ALT 32 U/L (4-49); AST 39 U/L (17-59); African American GFR (CKD) 25 (>60 ml/min/1.73 sqM); Albumin 3.7 g/dL (3.5-5.0); Alkaline Phosphatase 150 U/L (38-126); Anion Gap 12 mmol/L; Blood Urea Nitrogen 29 mg/dL (9-20); Calcium 8.6 mg/dL (8.4-10.2); Carbon Dioxide 29 mmol/L (22-30); Chloride 96 mmol/L (98-107); Glucose 134 mg/dL (74-99); Magnesium 1.9 mg/dL (1.6-2.3); Non-African American GFR(CKD) 21 (>60 ml/min/1.73 sqM); Potassium 3.1 mmol/L (3.5-5.1); Sodium 137 mmol/L (137-145); Total Bilirubin 0.9 mg/dL (0.2-1.3); Total Protein 7.3 g/dL (6.3-8.2)
--- NOTE | 2023-06-24 17:11 | ED ---
General Adult HPI - General Chief complaint: Syncope Stated complaint: SYNCOPE Time Seen by Provider: 06/24/23 15:00 Source: patient, EMS Mode of arrival: EMS Limitations: no limitations - History of Present Illness Initial comments: 68-year-old male with recent bypass surgery, diabetes, renal disease on hemodialysis who presents to the emergency room and after he had a syncopal episode. States that he was at dialysis and had approximately 2-1/2 hours of his dialysis when he had a syncopal episode. He denies having any symptoms prior to the events. States that he awoke to the staff alerting him that he had passed out. States that this is the fifth time that he has had a syncopal episode, especially while at dialysis. He has been previously evaluated without a diagnosis of why this keeps happening. He denies having any chest pain or trouble breathing prior to the event. No headaches or visual changes. No unilateral numbness or weakness. He has been taking all of his medications as directed without any missed doses. No nausea or vomiting. During the episode the patient did have some urinary and bowel incontinence. Reports that he feels that he is back to his baseline at this time. He does take blood thinners. Denies hitting his head during the syncopal episode. No other alleviating, precipitating or modifying factors - Related Data Home Medications Medication Instructions Recorded Confirmed Albuterol Inhaler [Ventolin Hfa 2 puff INHALATION RT-Q6H PRN 06/24/23 06/24/23 Inhaler] Aspirin 81 mg PO DAILY@119906/24/23 06/24/23 Calcium Acetate 667 mg PO TID-W/MEALS 06/24/23 06/24/23 Folic Acid-Vit B Complex-Vit C 1 cap PO DAILY 06/24/23 06/24/23 [Nephrocaps] Furosemide [Lasix] 80 mg PO DAILY@119906/24/23 06/24/23 INSULIN ASPART (NovoLOG) [NovoLOG See Protocol SQ ACHS PRN 06/24/23 06/24/23 (formulary)] Linagliptin [Tradjenta] 5 mg PO DAILY@119906/24/23 06/24/23 Midodrine HCl [ProAmatine] 10 mg PO TID 06/24/23 06/24/23 Rosuvastatin Calcium [Crestor] 40 mg PO DAILY@1200 06/24/23 06/24/23 Sennosides-Docusate Sodium 2 tab PO HS PRN 06/24/23 06/24/23 [Senokot-S] Tamsulosin [Flomax] 0.4 mg PO HS 06/24/23 06/24/23 polyethylene glycoL 3350 [Miralax] 17 gm PO DAILY PRN 06/24/23 06/24/23 Previous Rx's Medication Instructions Recorded Acetaminophen Tab [Tylenol] 1,000 mg PO Q6HR PRN tab 06/01/23 Amiodarone [Cordarone] 200 mg PO DAILY tab 06/01/23 Apixaban [Eliquis] 2.5 mg PO BID tab 06/01/23 bisacodyL [Dulcolax] 10 mg RECTAL DAILY PRN suppositor 06/01/23 Allergies Allergy/AdvReac Type Severity Reaction Status Date / Time atorvastatin [From Lipitor] Allergy Rash/Hives Verified 06/24/23 17:07 Review of Systems ROS Statement: Those systems with pertinent positive or pertinent negative responses have been documented in the HPI. ROS Other: All systems not noted in ROS Statement are negative. 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 Past Anesthesia/Blood Transfusion Reactions: No Reported Reaction Past Psychological History: No Psychological Hx Reported Smoking Status: Never smoker Past Alcohol Use History: None Reported Past Drug Use History: None Reported - Past Family History Mother Family Medical History: No Reported History Father Family Medical History: Myocardial Infarction ([place]) Additional Family Medical History / Comment(s): massive [place] @53 General Exam Limitations: no limitations General appearance: alert, in no apparent distress Head exam: Present: atraumatic, normocephalic, normal inspection Eye exam: Present: normal appearance, PERRL, EOMI. Absent: scleral icterus, conjunctival injection, periorbital swelling ENT exam: Present: normal exam, mucous membranes moist Neck exam: Present: normal inspection. Absent: tenderness, meningismus, lymphadenopathy Respiratory exam: Present: normal lung sounds bilaterally. Absent: respiratory distress, wheezes, rales, rhonchi, stridor Cardiovascular Exam: Present: regular rate, normal rhythm, normal heart sounds. Absent: systolic murmur, diastolic murmur, rubs, gallop, clicks GI/Abdominal exam: Present: soft, normal bowel sounds. Absent: distended, tenderness, guarding, rebound, rigid Extremities exam: Present: normal inspection, full ROM, normal capillary refill. Absent: tenderness, pedal edema, joint swelling, calf tenderness Back exam: Present: normal inspection Neurological exam: Present: alert, oriented X3, CN II-XII intact Psychiatric exam: Present: normal affect, normal mood Skin exam: Present: warm, dry, intact, normal color. Absent: rash Course Vital Signs 06/24/23 06/24/23 06/24/23 14:53 15:01 15:30 Temperature 97.9 F Pulse Rate 71 61 Pulse Rate [ Sitting] Pulse Rate [ Standing] Pulse Rate [ Supine] Respiratory 16 14 Rate Blood Pressure 146/66 146/66 141/71 Blood Pressure [Right Arm Supine] Blood Pressure [Sitting] Blood Pressure [Standing] O2 Sat by Pulse 98 99 95 Oximetry 06/24/23 06/24/23 06/24/23 16:00 16:30 17:00 Temperature Pulse Rate 60 60 58 L Pulse Rate [ Sitting] Pulse Rate [ Standing] Pulse Rate [ Supine] Respiratory 12 19 16 Rate Blood Pressure 139/69 133/69 152/73 Blood Pressure [Right Arm Supine] Blood Pressure [Sitting] Blood Pressure [Standing] O2 Sat by Pulse 97 97 98 Oximetry 06/24/23 06/24/23 06/24/23 18:00 18:01 18:37 Temperature 97.8 F Pulse Rate Pulse Rate [ 64 Sitting] Pulse Rate [ 92 Standing] Pulse Rate [ 62 64 Supine] Respiratory Rate Blood Pressure Blood Pressure 149/70 158/73 [Right Arm Supine] Blood Pressure 158/73 [Sitting] Blood Pressure 126/57 [Standing] O2 Sat by Pulse Oximetry Medical Decision Making - Medical Decision Making Was pt. sent in by a medical professional or institution (, PA, PRESS OPERATOR [employer], urgent care, hospital, or alf...) When possible be specific @ -Patient was sent in from the dialysis clinic Did you speak to anyone other than the patient for history (EMS, parent, family, police, friend...)? What history was obtained from this source @ -I spoke with the patient's in regards to his symptoms Did you review nursing and triage notes (agree or disagree)? Why? @ -I reviewed and agree with nursing and triage notes Were old charts reviewed (outside hosp., previous admission, EMS record, old EKG, old radiological studies, urgent care reports/EKG's, alf records)? Report findings @ -I reviewed the patient's discharge summary from June 01. Differential Diagnosis (chest pain, altered mental status, abdominal pain women, abdominal pain men, vaginal bleeding, weakness, fever, dyspnea, syncope, headache, dizziness, GI bleed, back pain, seizure, CVA, palpatations, mental health, musculoskeletal)? @ -Differential Syncope: Valvular disease, hypertrophic cardiomyopathy, pulmonary embolism, tamponade, tachycardia, bradycardia, [place], hypovolemia, hemorrhage, dissection, anemia, intracranial hemorrhage, seizure, hypoglycemia, carbon monoxide poisoning, this is not meant to be an all-inclusive list. EKG interpreted by me (3pts min.). @ -Yes and demonstrates sinus rhythm with a rate of 70. QRS 100. QTC of 430. No acute ST segment elevations or depressions X-rays interpreted by me (1pt min.). @ -Yes and demonstrates some bilateral pulmonary vascular congestion CT interpreted by me (1pt min.). @ -None done U/S interpreted by me (1pt. min.). @ -None done What testing was considered but not performed or refused? (CT, X-rays, U/S, labs)? Why? @ -Serial troponins and echo however patient does not want to be admitted What meds were considered but not given or refused? Why? @ -None Did you discuss the management of the patient with other professionals (professionals i.e. , PA, [employer] OPER[employer], lab, RT, psych nurse, social professionals, alcohol still operator, teacher, animal park code enforcement officer, pillowcase folder)? Give summary @ -No Was smoking cessation discussed for >3mins.? @ -No Was critical care preformed (if so, how long)? @ -No Were there social determinants of health that impacted care today? How? (Homelessness, low income, unemployed, alcoholism, drug addiction, transportation, low edu. Level, literacy, decrease access to med. care, fpc, rehab)? @ -No Was there de-escalation of care discussed even if they declined (Discuss DNR or withdrawal of care, Hospice)? DNR status @ -No What co-morbidities impacted this encounter? (DM, HTN, Smoking, COPD, CAD, Cancer, CVA, ARF, Chemo, Hep., AIDS, mental health diagnosis, sleep apnea, morbid obesity)? @ -Coronary artery disease status post bypass, chronic renal disease on hemodialysis Was patient admitted / discharged? Hospital course, mention meds given and route, prescriptions, significant lab abnormalities, going to OR and other pertinent info. @ -Upon arrival patient was placed into room 15. A thorough history and physical exam was performed. IV is established. Orthostatics are obtained. Laboratory studies are conducted in the chest x-rays performed. I discussed results with the patient. He does have mild hypokalemia and therefore this is replaced. Did recommend admission however patient will like to go home at this time. States that he has had 5 syncopal episodes and this is nothing new for him. He has an appointment with his personnel analyst tomorrow for further follow-up with him in office rather than Hospitalized again. The patient is aware of the risks of leaving to include permanent disability and . There is concern that the patient may be going into an arrhythmia. Patient understood this. Still wants to go home even though he understands the risks. is at bedside and agrees to him being discharged. He is instructed that he must keep his appointment for tomorrow. Recommend cardiac monitoring and an echo. Return to the ER for any new or worsening symptoms. Patient was agreeable this and was discharged in stable condition Undiagnosed new problem with uncertain prognosis? @ -yes Drug Therapy requiring intensive monitoring for toxicity (Heparin, Nitro, Insulin, Cardizem)? @ -No Were any procedures done? @ -No Diagnosis/symptom? @ -Recurrent syncope, chronic kidney disease on hemodialysis, acute hypokalemia Acute, or Chronic, or Acute on Chronic? @ -Acute on subacute Uncomplicated (without systemic symptoms) or Complicated (systemic symptoms)? @ -Complicated Side effects of treatment? @ -No Exacerbation, Progression, or Severe Exacerbation? @ -No Poses a threat to life or bodily function? How? (Chest pain, [place], [place], pneumonia, PE, COPD, DKA, ARF, appy, cholecystitis, CVA, Diverticulitis, Homicidal, Suicidal, threat to staff... and all critical care pts) @ -No - Lab Data Result diagrams: 06/24/23 15:40 06/24/23 15:40 Lab Results 06/24/23 06/24/23 06/24/23 Range/Units 15:40 15:40 15:40 WBC 9.9 (3.8-10.6) k/uL RBC 2.96 L (4.30-5.90) m/uL Hgb 9.1 L (13.0-17.5) gm/dL Hct 27.6 L (39.0-53.0) % MCV 93.3 (80.0-100.0) fL MCH 30.8 (25.0-35.0) pg MCHC 33.1 (31.0-37.0) g/dL RDW 14.5 (11.5-15.5) % Plt Count 284 (150-450) k/uL MPV 6.9 Neutrophils % 79 % Lymphocytes % 11 % Monocytes % 6 % Eosinophils % 2 % Basophils % 0 % Neutrophils # 7.8 H (1.3-7.7) k/uL Lymphocytes # 1.1 (1.0-4.8) k/uL Monocytes # 0.6 (0-1.0) k/uL Eosinophils # 0.2 (0-0.7) k/uL Basophils # 0.0 (0-0.2) k/uL PT 10.9 (9.0-12.0) sec INR 1.0 (<1.2) APTT 24.2 (22.0-30.0) sec Sodium 137 (137-145) mmol/L Potassium 3.1 L (3.5-5.1) mmol/L Chloride 96 L (98-107) mmol/L Carbon Dioxide 29 (22-30) mmol/L Anion Gap 12 mmol/L BUN 29 H (9-20) mg/dL Creatinine 2.88 H (0.66-1.25) mg/dL Est GFR (CKD-EPI)AfAm 25 (>60 ml/min/1.73 sqM) Est GFR (CKD-EPI)NonAf 21 (>60 ml/min/1.73 sqM) Glucose 134 H (74-99) mg/dL Calcium 8.6 (8.4-10.2) mg/dL Magnesium 1.9 (1.6-2.3) mg/dL Total Bilirubin 0.9 (0.2-1.3) mg/dL AST 39 (17-59) U/L ALT 32 (4-49) U/L Alkaline Phosphatase 150 H (38-126) U/L Troponin I (0.000-0.034) ng/mL NT-Pro-B Natriuret Pep pg/mL Total Protein 7.3 (6.3-8.2) g/dL Albumin 3.7 (3.5-5.0) g/dL 06/24/23 06/24/23 Range/Units 15:40 16:35 WBC (3.8-10.6) k/uL RBC (4.30-5.90) m/uL Hgb (13.0-17.5) gm/dL Hct (39.0-53.0) % MCV (80.0-100.0) fL MCH (25.0-35.0) pg MCHC (31.0-37.0) g/dL RDW (11.5-15.5) % Plt Count (150-450) k/uL MPV Neutrophils % % Lymphocytes % % Monocytes % % Eosinophils % % Basophils % % Neutrophils # (1.3-7.7) k/uL Lymphocytes # (1.0-4.8) k/uL Monocytes # (0-1.0) k/uL Eosinophils # (0-0.7) k/uL Basophils # (0-0.2) k/uL PT (9.0-12.0) sec INR (<1.2) APTT (22.0-30.0) sec Sodium (137-145) mmol/L Potassium (3.5-5.1) mmol/L Chloride (98-107) mmol/L Carbon Dioxide (22-30) mmol/L Anion Gap mmol/L BUN (9-20) mg/dL Creatinine (0.66-1.25) mg/dL Est GFR (CKD-EPI)AfAm (>60 ml/min/1.73 sqM) Est GFR (CKD-EPI)NonAf (>60 ml/min/1.73 sqM) Glucose (74-99) mg/dL Calcium (8.4-10.2) mg/dL Magnesium (1.6-2.3) mg/dL Total Bilirubin (0.2-1.3) mg/dL AST (17-59) U/L ALT (4-49) U/L Alkaline Phosphatase (38-126) U/L Troponin I 0.041 H* (0.000-0.034) ng/mL NT-Pro-B Natriuret Pep 2140 pg/mL Total Protein (6.3-8.2) g/dL Albumin (3.5-5.0) g/dL Disposition Clinical Impression: Syncope, ESRD (end stage renal disease) on dialysis, Anemia, Hypokalemia Disposition: HOME SELF-CARE Condition: Stable Instructions (If sedation given, give patient instructions): Syncope (ED) Additional Instructions: Please see Dr. Segundo at your appointment tomorrow. I recommends a repeat echo and a cardiac monitoring for further workup of your symptoms. Return for any new or worsening symptoms Is patient prescribed a controlled substance at d/c from ED?: No Referrals: Raimundo Smith MD [Primary Care Provider] - 1-2 days Jimmy Segundo MD [STAFF PHYSICIAN] - 1-2 days Time of Disposition: 18:32
[2023-06-24] MEDS ORDERED: POTASSIUM CHLORIDE ER 20 MEQ TAB.ER PO STA (18:18)
[2023-06-24 18:28] VITALS: BP 158/73; PULSE 64
[2023-06-24 18:40] VITALS: TEMP 97.8
== END 2023-06-24 19:14 | disposition home or self-care (01) ==
LOC: EC 14:44
DX: R55 Syncope and collapse (principal); D64.9 Anemia, unspecified; E87.6 Hypokalemia; I12.0 Hypertensive chronic kidney disease with stage 5 chronic kidney disease or end stage renal disease; E11.22 Type 2 diabetes mellitus with diabetic chronic kidney disease; N18.6 End stage renal disease; Z99.2 Dependence on renal dialysis; I25.2 Old myocardial infarction; Z86.73 Personal history of transient ischemic attack (TIA), and cerebral infarction without residual deficits; Z79.82 Long term (current) use of aspirin; Z86.16 Personal history of COVID-19; Z79.4 Long term (current) use of insulin; Z79.84 Long term (current) use of oral hypoglycemic drugs; Z79.899 Other long term (current) drug therapy; Z95.1 Presence of aortocoronary bypass graft; Z88.6 Allergy status to analgesic agent
CPT/HCPCS: 36415; 71046; 80053; 83735; 83880; 84484; 85025; 85610; 85730; 93005; 99285

== ENCOUNTER → 2023-10-27 | Outpatient (CLI) | payer MEDICARE ==
[2023-10-27 15:12] LABS: HCT 36.1 % (39.6-50.0); HGB 11.6 g/dL (13.0-17.0); MCH 30.6 pg (27.0-32.0); MCHC 32.1 g/dL (32.0-37.0); MCV 95.3 FL (80.0-97.0); Mean Platelet Volume 9.4 FL (9.5-12.2); NRBC Per 100 WBC 0 X 10*3/uL (0.00-0.01); Platelet Count 219 X 10*3/uL (140-440); RBC 3.79 X 10*6/uL (4.40-5.60); RDW 13.7 % (11.5-14.5); WBC 9.93 X 10*3/uL (4.50-10.00)
[2023-10-27 15:13] LABS: Basophils # (A) 0.06 X 10*3/uL (0.00-0.10); Basophils % (A) 0.6 %; Eosinophils # (A) 0.29 X 10*3/uL (0.04-0.35); Eosinophils % (A) 2.9 %; Lymphocytes # (A) 2.76 X 10*3/uL (0.90-5.00); Lymphocytes % (A) 27.8 %; Monocytes # (A) 0.79 X 10*3/uL (0.20-1.00); Neutrophils # (A) 5.99 X 10*3/uL (1.80-7.70); Neutrophils % (A) 60.3 %
[2023-10-27 15:17] LABS: ALT 23 U/L (10-49); AST 22 U/L (14-35); Albumin 4.1 g/dL (3.8-4.9); Albumin/Globulin Ratio 1.24 Ratio (1.60-3.17); Alkaline Phosphatase 89 U/L (41-126); BUN/Creat Ratio 10.82 Ratio (12.00-20.00); Blood Urea Nitrogen 30.3 mg/dL (9.0-27.0); Calcium 9.3 mg/dL (8.7-10.3); Carbon Dioxide 25.4 mmol/L (21.6-31.8); Chloride 98 mmol/L (96-109); Chol/HDL Ratio 3.27 Ratio; Globulin 3.3 g/dL (1.6-3.3); Glucose 110 mg/dL (70-110); LDL Cholesterol,Calculated 58.4 mg/dL (0.0-131.0); Potassium 4.1 mmol/L (3.5-5.5); Sodium 137 mmol/L (135-145); Total Bilirubin 0.9 mg/dL (0.3-1.2); Total Protein 7.4 g/dL (6.2-8.2)
== END | disposition home or self-care (01) ==
LOC: LABWHC1 08:22
PROVIDERS: ATTEND Family Medicine
DX: E11.65 Type 2 diabetes mellitus with hyperglycemia (principal)
CPT/HCPCS: 36415; 80053; 80061; 82043; 82570; 83036; 85025

== ENCOUNTER 2024-01-25 05:48 | Day surgery (SDC) | payer MEDICARE ==
[2024-01-24 10:33] VITALS: BMI 33.4
[2024-01-25] MEDS ORDERED: LACTATED RINGERS 1,000 ML IV SCH (06:10)
[2024-01-25 06:44] VITALS: TEMP 97
[2024-01-25 06:53] LABS: Glucose,Whole Blood 115 mg/dL (70-110)
[2024-01-25] MEDS: SODIUM CHLORIDE 0.9% 500 ML 500 ML IV ONE (06:56)
[2024-01-25] MEDS: ONDANSETRON 4 MG/2 ML VIAL IVP ONE (06:57)
[2024-01-25] MEDS: DEXAMETHASONE SOD PHOSPHATE 4 MG/ML 1 ML VIAL IV ONE (06:57)
[2024-01-25] MEDS ORDERED: MIDAZOLAM 2 MG/2 ML VIAL IV PRN (07:00)
[2024-01-25] MEDS ORDERED: HYDROmorphone 0.5 MG/0.5 ML SYRINGE IVP PRN (07:00)
[2024-01-25] MEDS: MIDAZOLAM 2 MG/2 ML VIAL IVP ONE (07:18)
[2024-01-25] MEDS: fentaNYL (PF) 50 MCG/ML 2 ML AMP IVP ONE (07:19)
[2024-01-25] MEDS ORDERED: ROPIVACAINE 5 MG/ML 30 ML VIAL ONE (07:38)
[2024-01-25] MEDS ORDERED: HEPARIN SODIUM,PORCINE 5,000 UNIT/ML 1 ML VIAL ONE (07:38)
[2024-01-25] MEDS ORDERED: fentaNYL (PF) 50 MCG/ML 2 ML AMP ONE (07:38)
[2024-01-25] MEDS ORDERED: MIDAZOLAM 2 MG/2 ML VIAL ONE (07:38)
[2024-01-25] MEDS ORDERED: SODIUM CHLORIDE 0.9% (PF) 10 ML VIAL ONE (07:38)
[2024-01-25] MEDS: BUPIVACAINE (PF) 0.5% 30 ML VIAL SQ ONE ×2 (08:07→08:57)
[2024-01-25] MEDS: LIDOCAINE 1% INJ 10MG/ML (20 ML MDV) SQ ONE ×2 (08:07→08:57)
[2024-01-25] MEDS: HEPARIN SODIUM,PORCINE (1 ML) 2,000 UNIT in SODIUM CHLORIDE 0.9% 500 ML 500 ML IRRIGATION ONE (08:15)
[2024-01-25] MEDS: ceFAZolin 2 GM in SODIUM CHLORIDE 0.9% 500 ML 500 ML IRRIGATION ONE (08:16)
--- NOTE | 2024-01-25 09:06 | P.OP ---
Date of Procedure: 01/25/24 Description of Procedure: Preoperative diagnosis: End-stage renal disease Postoperative diagnosis: Same Procedure: Creation of left radiocephalic fistula Ligation of branch via separate incision Surgeon: Beatriz Nelson D.O. Anesthesia: Monitored sedation with regional block Director Of Clinical Applications: Kitty EBL: 5 cc IV fluids: See records Urine output: Not measured Drains: None Complications: None immediately apparent stable to recovery Condition: Stable to recovery Operative indication and findings: The patient is a 68-year-old with end-stage renal disease who presents for fistula creation. Preoperative imaging showed appropriate size vessels for a radiocephalic fistula. Risks and benefits were discussed. The patient seemingly understood and was willing to proceed Procedure in detail: The patient was taken the operative suite and placed in supine position. The upper extremity was prepped and draped in usual sterile fashion. A preprocedure timeout was performed, all parties are in agreement. The radial pulse was felt, the ultrasound was previously utilized to identify the cephalic vein. The skin was anesthetized 1% lidocaine plain and a longitudinal incision was made between the radial pulse in the cephalic vein. It was carried down through subcutaneous tissues with electrocautery. The radi al artery was identified. It was dissected free proximally and distally and encircled with vessel loop. Attention was then turned towards the vein. The subcutaneous tissues were bluntly dissected to the level of the vein. The vein was Cleared circumferentially and at the most distal portion it was suture ligated with 6-0 silk. The transected portion of the vein was then serially dilated. An arteriotomy was performed after control of the vessel. 6-0 silk stay sutures were placed. An anastomosis created using 6-0 Prolene. Prior to completion of the anastomosis the artery was allowed to backbleed and forward bleed, the vein was flushed. The anastomosis was completed. Hemostasis appeared adequate. Blood flow was pulsatile distal to the anastomosis and confirmed with Doppler signal. The area was copiously irrigated. The fistula once more inspected for any further branches to ligate. The ultrasounded previously been used to identify the location of the cephalic vein and a large size branch was found at the dorsum of the forearm a few centimeters away from the proposed anastomosis therefore a counterincision was made after proper anesthetization. Incision was carried down through the subcutaneous tissue and the vein was identified. It was doubly ligated. The area was irrigated the wound was then closed. The deep dermal tissues were reapproximated with interrupted sutures of 3-0 Vicryl. The skin was reapproximated with running 4-0 Monocryl. Skin glue was placed. The patient was transferred to recovery in stable condition having tolerated the procedure well Plan - Discharge Summary Discharge Rx Participant: Yes New Discharge Prescriptions: No Action Apixaban [Eliquis] 2.5 mg PO BID tab INSULIN ASPART (NovoLOG) [NovoLOG (formulary)] See Protocol SQ DIRECTED PRN PRN Reason: HIGH BLOOD SUGAR Clopidogrel [Plavix] 75 mg PO DAILY Rosuvastatin [Crestor] 20 mg PO DAILY Furosemide [Lasix] 40 mg PO DAILY Calcium Acetate 667 mg PO DAILY Mounjaro (Unknown Dose) 1 dose SQ MO Folic Acid/Vit B Complex and C [Nephro-Jazmine Tablet] 0.8 mg PO DAILY Discharge Medication List Apixaban [Eliquis] 2.5 mg PO BID tab 06/01/23 [Rx] Calcium Acetate 667 mg PO DAILY 06/24/23 [History] INSULIN ASPART (NovoLOG) [NovoLOG (formulary)] See Protocol SQ DIRECTED PRN 06/24/23 [History] Clopidogrel [Plavix] 75 mg PO DAILY 01/24/24 [History] Folic Acid/Vit B Complex and C [Nephro-Jazmine Tablet] 0.8 mg PO DAILY 01/24/24 [History] Furosemide [Lasix] 40 mg PO DAILY 01/24/24 [History] Mounjaro (Unknown Dose) 1 dose SQ MO 01/24/24 [History] Rosuvastatin [Crestor] 20 mg PO DAILY 01/24/24 [History] Follow up Appointment(s)/Referral(s): Beatriz Nelson DO [STAFF PHYSICIAN] - 1 Week Activity/Diet/Wound Care/Special Instructions: Resume home medications including anticoagulation tonight. Resume regular diet as previously tolerated. Resume bathing as previous. No heavy lifting with operative arm. Utilize sling for first 24 hours. Discharge Disposition: HOME SELF-CARE
[2024-01-25 09:26] VITALS: RESP 14
[2024-01-25 10:05] VITALS: BP 124/66; PULSE 63
--- NOTE | 2024-01-25 10:51 | P.ANPRN ---
Procedure Note - Anesthesia - Nerve Block Performed Right Axillary Single Time Out Performed: Yes (0718) Date of Procedure: 01/25/24 Procedure Start Time: Procedure Stop Time: Location of Patient: PreOp Indication: Acute Post-Operative Pain, Requested by Surgeon Specifically requested for management of pain by DrOmero: Beatriz Nelson Sedation Type: Sedate with meaningful contact maintained Preparation: Sterile Prep Position: Supine (arm over) Catheter: None Needle Types: Pajunk Needle Gauge: 21 Ultrasound used to visualize needle placement: Yes Ultrasound used to observe medication spread: Yes Injectate: 0.5% Ropivacaine (see comment for volume) (30cc +10cc nacl pf. 10cc each radial median, ulnar and mskcut) Blood Aspirated: No Pain Paresthesia on Injection Noted: No Resistance on Injection: Normal Image Stored and Saved: Yes Events: Uneventful and Well Tolerated
== END 2024-01-25 09:58 | disposition home or self-care (01) ==
LOC: OR 05:48
PROVIDERS: ATTEND Surgery
DX: E11.22 Type 2 diabetes mellitus with diabetic chronic kidney disease (principal); N18.6 End stage renal disease; I25.10 Atherosclerotic heart disease of native coronary artery without angina pectoris; I10 Essential (primary) hypertension; N40.0 Benign prostatic hyperplasia without lower urinary tract symptoms; Z95.5 Presence of coronary angioplasty implant and graft; Z79.02 Long term (current) use of antithrombotics/antiplatelets; Z79.01 Long term (current) use of anticoagulants; Z86.73 Personal history of transient ischemic attack (TIA), and cerebral infarction without residual deficits; Z79.899 Other long term (current) drug therapy
CPT/HCPCS: 36821; 64415; 84132; J2250; J1644; J1100; J0690; J2405; J2001; J3010; J2795; J0665

== ENCOUNTER 2024-03-15 12:08 | Day surgery (SDC) | payer MEDICARE ==
[~2024-03-15 12:08] MED LIST changes: -ALBUMIN HUMAN 25% 50 ML IV ONE; -ALBUMIN HUMAN 5% 500 ML IVPB ONE; -ASPIRIN 325 MG TAB PO ONE; -CALCIUM CHLORIDE 100 MG/ML 10 ML SYRINGE IV ONE; -CHLORHEXIDINE GLUCONATE 15 ML CUP MUCOUS MEM ONE; -CLEVIDIPINE BUTYRATE 25 MG in EMPTY BAG 1 BAG IV ONE; -CRESTOR 40 MG PO SCH; -ELECTROLYTE-A SOLUTION 1,000 ML with POTASSIUM CHLORIDE 100 MEQ, MAGNESIUM SULFATE 16 M... IV ONE; -ELECTROLYTE-A SOLUTION 1,000 ML with POTASSIUM CHLORIDE 40 MEQ, MAGNESIUM SULFATE 16 ME... IV ONE; -HEPARIN SODIUM 1,000 UN/ML (10ML VL) IV ONE; -HEPARIN SODIUM,PORCINE (1 ML) 5,000 UNIT in SODIUM CHLORIDE 0.9% 500 ML 500 ML IV ONE; -INSULIN REGULAR 100 UNIT in SODIUM CHLORIDE 0.9% 100 ML IV ONE; -LACTATED RINGERS 1,000 ML IV ONE; +LIDOCAINE 1% (10MG/ML) FOR IV START INTRADERMA PRN; -MAGNESIUM SULFATE 16.24 MEQ in EMPTY SYRINGE 1 SYR IV ONE; -MANNITOL 25% 12.5 GM/50 ML VIAL IV ONE; -METOPROLOL TARTRATE 12.5 MG TAB PO ONE; -NITROGLYCERIN SL TABS 0.4 MG TAB SUBLINGUAL ONE; -NITROGLYCERIN-D5W PMX 25 MG/250 ML BTL IV ONE; -NITROGLYCERIN-D5W PMX 50 MG in DEXTROSE/WATER 1 250ML.BAG IV ONE; -NOREPINEPHRINE 4 MG in SODIUM CHLORIDE 0.9% 250 ML IV ONE; -PAPAVERINE 360 MG in SODIUM CHLORIDE 0.9% 90 ML IV ONE; -PHENYLEPHRINE 10 MG/ML VIAL IV ONE; -PHENYLEPHRINE 40 MG in SODIUM CHLORIDE 0.9% 250 ML IV ONE; -PROTAMINE SULFATE 10 MG/ML 25 ML VIAL IV ONE; -PROTAMINE SULFATE 250 MG in EMPTY BAG 1 BAG IV ONE; +Pre Op ABX Message 1 EACH MISC MISCELLANE ONE; -SODIUM BICARB 8.4% 50 ML SYR (1 MEQ/ML) IV ONE; -SODIUM CHLORIDE 0.9% 1,000 ML IV ONE; -TRANEXAMIC ACID 2,000 MG in SODIUM CHLORIDE 0.9% 80 ML IV ONE; -ceFAZolin 1,000 MG in SODIUM CHLORIDE 0.9% IRRIGATIO 1,000 ML IRRIGATION ONE; +fentaNYL (PF) 50 MCG/ML 2 ML AMP IV PRN; -propofoL 1,000 MG/100 ML VIAL IV ONE
[2024-03-15 13:03] LABS: Glucose,Whole Blood 116 mg/dL (70-110)
[2024-03-15] MEDS: LACTATED RINGERS 1,000 ML IV SCH (13:04)
[2024-03-15] MEDS: SODIUM CHLORIDE 0.9% 500 ML 500 ML IV ONE (13:06)
[2024-03-15] MEDS ORDERED: METOCLOPRAMIDE 5 MG/ML 2 ML VIAL ONE (13:13)
[2024-03-15] MEDS: FAMOTIDINE 20 MG/2 ML VIAL IVP ONE (13:14)
[2024-03-15] MEDS: ONDANSETRON 4 MG/2 ML VIAL IVP ONE (13:14)
[2024-03-15] MEDS: METOCLOPRAMIDE 5 MG/ML 2 ML VIAL IVP ONE (13:14)
[2024-03-15 13:22] LABS: Basophils # (A) 0.1 k/uL (0-0.2); Basophils % (A) 1 %; Eosinophils # (A) 0.4 k/uL (0-0.7); Eosinophils % (A) 4 %; HCT 38.2 % (39.0-53.0); Lymphocytes # (A) 1.9 k/uL (1.0-4.8); Lymphocytes % (A) 18 %; MCH 31.7 pg (25.0-35.0); MCV 93.3 fL (80.0-100.0); Mean Platelet Volume 7.1; Monocytes # (A) 0.8 k/uL (0-1.0); Monocytes % (A) 8 %; Neutrophils # (A) 7.3 k/uL (1.3-7.7); Neutrophils % (A) 69 %; Platelet Count 231 k/uL (150-450); RBC 4.09 m/uL (4.30-5.90); RDW 12.9 % (11.5-15.5); WBC 10.7 k/uL (3.8-10.6)
[2024-03-15 13:29] LABS: ALT 22 U/L (4-49); African American GFR (CKD) 19 (>60 ml/min/1.73 sqM); Albumin 4.5 g/dL (3.5-5.0); Anion Gap 11 mmol/L; Blood Urea Nitrogen 50 mg/dL (9-20); Calcium 8.9 mg/dL (8.4-10.2); Carbon Dioxide 22 mmol/L (22-30); Chloride 107 mmol/L (98-107); Glucose 117 mg/dL (74-99); Non-African American GFR(CKD) 16 (>60 ml/min/1.73 sqM); Sodium 140 mmol/L (137-145); Total Bilirubin 1.3 mg/dL (0.2-1.3); Total Protein 8.1 g/dL (6.3-8.2)
[2024-03-15 13:30] LABS: AST 36 U/L (17-59); Alkaline Phosphatase 80 U/L (38-126)
[2024-03-15 13:31] LABS: Potassium 4.8 mmol/L (3.5-5.1)
[2024-03-15 13:34] VITALS: RESP 16; TEMP 96.9
[2024-03-15] MEDS ORDERED: MIDAZOLAM 2 MG/2 ML VIAL ONE (14:08)
[2024-03-15] MEDS ORDERED: fentaNYL (PF) 50 MCG/ML 2 ML AMP ONE (14:08)
[2024-03-15] MEDS: LIDOCAINE 1% INJ 10MG/ML (10 ML MDV) SQ ONE (14:31)
--- NOTE | 2024-03-15 15:13 | P.OP ---
Date of Procedure: 03/15/24 Description of Procedure: Preoperative diagnosis: End-stage renal disease, left upper extremity AV fistula, branch Postoperative diagnosis: Same Procedure: Ligation of left upper extremity AV fistula branch Surgeon: Beatriz Nelson D.O. EBL: 1 cc IV fluids: See records Urine output: See records Drains: None Complications: None immediately apparent Condition: Stable to recovery Operative indication and findings: Patient is a 68-year-old male who recently had creation of a radiocephalic fistula. Upon workup and evaluation was found to have a branch causing decreased maturation through the distal portion of the fistula therefore he was brought here today for ligation of that branch. Risks and benefits were discussed including but not limited to bleeding, infection, thrombosis of fistula. He seemingly understood and was willing to proceed. Procedure in detail: Patient was brought to the operative suite and placed in supine position. Left upper extremities prepped and draped in usual sterile fashion. A preprocedural timeout was performed, all parties were in agreement. The ultrasound was utilized and the fistula was identified and followed through, the area where the branch ligation planning was identified. The skin overlying was anesthetized with 1% lidocaine plain and incision was made carried down through the subcutaneous tissue to the level of the bifurcation. The ultrasound was then utilized again to decide on the portion needling ligating. The smaller of the 2 vessels was chosen and ligation was performed. There was adequate thrill through the graft. The area was irrigated. Deep dermal tissues were reapproximated with 3-0 Vicryl. The skin was reapproximated running 4-0 Monocryl and skin glue was placed. The patient was transported to recovery in stable condition having tolerated the procedure well. Plan - Discharge Summary Discharge Rx Participant: No New Discharge Prescriptions: No Action Apixaban [Eliquis] 2.5 mg PO BID tab INSULIN ASPART (NovoLOG) [NovoLOG (formulary)] See Protocol SQ DIRECTED PRN PRN Reason: HIGH BLOOD SUGAR Clopidogrel [Plavix] 75 mg PO DAILY Rosuvastatin [Crestor] 20 mg PO DAILY Calcium Acetate 667 mg PO TID-W/MEALS Mounjaro (Unknown Dose) 1 dose SQ MO Folic Acid/Vit B Complex and C [Nephro-Jazmine Tablet] 0.8 mg PO DAILY carvediloL [Coreg] 3.125 mg PO BID Discharge Medication List Apixaban [Eliquis] 2.5 mg PO BID tab 06/01/23 [Rx] Calcium Acetate 667 mg PO TID-W/MEALS 06/24/23 [History] INSULIN ASPART (NovoLOG) [NovoLOG (formulary)] See Protocol SQ DIRECTED PRN 06/24/23 [History] Clopidogrel [Plavix] 75 mg PO DAILY 01/24/24 [History] Folic Acid/Vit B Complex and C [Nephro-Jazmine Tablet] 0.8 mg PO DAILY 01/24/24 [History] Mounjaro (Unknown Dose) 1 dose SQ MO 01/24/24 [History] Rosuvastatin [Crestor] 20 mg PO DAILY 01/24/24 [History] carvediloL [Coreg] 3.125 mg PO BID 03/13/24 [History] Follow up Appointment(s)/Referral(s): Beatriz Nelson DO [STAFF PHYSICIAN] - 10 Days (with ultrasound) Patient Instructions/Handouts: *Surgery [facility] - (Anesthesia) Discharge Instructions Outpatient Surgery Activity/Diet/Wound Care/Special Instructions: Resume activity as previous. May resume home medications as previously ordered. Resume bathing as previous.
[2024-03-15 15:32] VITALS: BP 115/68; PULSE 61
== END 2024-03-15 15:44 | disposition home or self-care (01) ==
LOC: OR 12:08
PROVIDERS: ATTEND Surgery
DX: I12.0 Hypertensive chronic kidney disease with stage 5 chronic kidney disease or end stage renal disease (principal); E11.22 Type 2 diabetes mellitus with diabetic chronic kidney disease; N18.6 End stage renal disease; I25.10 Atherosclerotic heart disease of native coronary artery without angina pectoris; Z79.01 Long term (current) use of anticoagulants; Z79.02 Long term (current) use of antithrombotics/antiplatelets; Z79.899 Other long term (current) drug therapy; Z99.2 Dependence on renal dialysis; Z79.4 Long term (current) use of insulin; Z95.5 Presence of coronary angioplasty implant and graft; Z86.73 Personal history of transient ischemic attack (TIA), and cerebral infarction without residual deficits; Z88.8 Allergy status to other drugs, medicaments and biological substances
CPT/HCPCS: 80053; 85025; 37607; J2250; J2765; J2405; J3010; J3490; J2001

== ENCOUNTER → 2024-03-24 | Outpatient (CLI) | payer MEDICARE ==
--- NOTE | 2024-03-26 16:57 | US ---
EXAMINATION TYPE: US Aorta Screening DATE OF EXAM: 03/24/2024 COMPARISON: NONE CLINICAL INDICATION: Male, 68 years old with history of Z13.6ENCOUNTER FOR SCREENING FOR CARDIOVASCUL AR DI; mother had AAA, no symptoms TECHNIQUE: Multiple sonographic images of the abdominal aorta are obtained. 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
== END | disposition home or self-care (01) ==
LOC: RADUSWWP 06:52
PROVIDERS: ATTEND Family Medicine
DX: Z13.6 Encounter for screening for cardiovascular disorders (principal)
CPT/HCPCS: 76706

== ENCOUNTER 2024-07-06 07:08 | Day surgery (SDC) | payer MEDICARE ==
[2024-07-06] MEDS: IV FLUID CONTINUATION 1,000 ML IV ONE (07:27)
[2024-07-06] MEDS: SODIUM CHLORIDE 0.9% 500 ML 500 ML IV SCH (07:31)
[2024-07-06 07:34] LABS: Glucose,Whole Blood 160 mg/dL (70-110)
[2024-07-06 07:40] VITALS: TEMP 98.7
[2024-07-06 07:56] LABS: Basophils # (A) 0.1 k/uL (0-0.2); Basophils % (A) 1 %; Eosinophils # (A) 0.3 k/uL (0-0.7); Eosinophils % (A) 3 %; HCT 38.5 % (39.0-53.0); HGB 12.9 gm/dL (13.0-17.5); Lymphocytes # (A) 2.8 k/uL (1.0-4.8); Lymphocytes % (A) 25 %; MCH 32.4 pg (25.0-35.0); MCHC 33.5 g/dL (31.0-37.0); MCV 96.7 fL (80.0-100.0); Mean Platelet Volume 7.3; Monocytes # (A) 0.6 k/uL (0-1.0); Monocytes % (A) 6 %; Neutrophils # (A) 7.3 k/uL (1.3-7.7); Neutrophils % (A) 64 %; Platelet Count 266 k/uL (150-450); RBC 3.99 m/uL (4.30-5.90); RDW 13.2 % (11.5-15.5); WBC 11.4 k/uL (3.8-10.6)
[2024-07-06 08:04] LABS: African American GFR (CKD) 10 (>60 ml/min/1.73 sqM); Anion Gap 14 mmol/L; Blood Urea Nitrogen 75 mg/dL (9-20); Calcium 9.4 mg/dL (8.4-10.2); Carbon Dioxide 30 mmol/L (22-30); Chloride 96 mmol/L (98-107); Glucose 164 mg/dL (74-99); Non-African American GFR(CKD) 9 (>60 ml/min/1.73 sqM); Potassium 4.4 mmol/L (3.5-5.1); Sodium 140 mmol/L (137-145)
[2024-07-06] MEDS: carvediloL 3.125 MG TAB PO STA (08:17)
[2024-07-06] MEDS ORDERED: fentaNYL (PF) 50 MCG/ML 2 ML AMP ONE (08:40)
[2024-07-06] MEDS ORDERED: LIDOCAINE 1% INJ 10MG/ML (20 ML MDV) ONE (08:41)
[2024-07-06] MEDS: fentaNYL (PF) 50 MCG/ML 2 ML AMP IVP ONE (08:54)
[2024-07-06] MEDS: MIDAZOLAM 2 MG/2 ML VIAL IVP ONE (08:54)
[2024-07-06] MEDS: LIDOCAINE 1% INJ 10MG/ML (20 ML MDV) SQ ONE (08:54)
[2024-07-06] MEDS: IOPAMIDOL-250 100ML BTL IVP ONE (09:39)
[2024-07-06 10:19] VITALS: RESP 16
[2024-07-06 10:27] VITALS: PULSE 60
[2024-07-06 10:52] VITALS: BP 132/60
--- NOTE | 2024-07-06 12:25 | P.OP ---
Date of Procedure: 07/06/24 Description of Procedure: Preoperative diagnosis: [None maturing AV fistula] Postoperative diagnosis: Same Procedure: Ultrasound-guided left upper extremity fistula access x 2 Fistulogram 3. Percutaneous transluminal balloon angioplasty of inflow 5 x 60 balloon 4. Percutaneous transluminal balloon angioplasty cephalic vein 6 x 60 balloon 5. Coil embolization cephalic vein branch 1 x 2, 2 x 4 Julieta coil Moderate conscious sedation with personal monitoring of certified RN administration with hemodynamic monitoring for 30 minutes Surgeon: Beatriz Quinn D.O. EBL: Less than 5 cc IV fluids see records Urine output: Not measured Drains: None Complications: None immediately apparent Condition: Stable to recovery Operative indication and findings: Patient is a 69-year-old male with a left upper extremity radiocephalic fistula that was initially functional however then had issues with access at dialysis. He has been getting dialysis via a chest wall tunneled catheter. He presents today for fistulogram and possible interventions. Risks and benefits were discussed. He seemingly understood and was willing to proceed. Procedure in detail: Patient was brought to the special suite and placed in supine position. The left upper extremity was prepped and draped in usual sterile fashion. A preprocedural timeout is performed, all parties were in agreement. Using the ultrasound, the cephalic vein in the direction towards the inflow was accessed. A fistulogram was performed showing flow through the cephalic vein with a quick low of contrast through a collateral branch. There was significant narrowing of the inflow vein. Catheters and wires were then used to access the artery. An arterial angiogram was performed. Balloon angioplasty of the inflow artery was then performed with a 5 x 60 balloon. There was still prompt visualization of the collateral branch therefore the catheter was withdrawn and the branch was selected. An angiogram was performed. 1 x 2 and 2 x 4 Julieta coils were placed in this small vessel which caused decreased flow through the graft. Repeat fistulogram was performed, there did appear to be an area of outflow narrowing which was at the level of a previous placed stent. Catheters and wires were then used to access in this direction after appropriate access using ultrasound of the 6 Syri[place] sheath placement. This area was then ballooned with a 6 x 60 balloon. There was significant improvement with flow through the fistula as well as a palpable thrill. Catheters and wires were then removed. The sheaths were removed and [id number] sutures were placed for hemostasis. The patient was transported to recovery in stable condition having tolerated the procedure well. Plan - Discharge Summary Discharge Rx Participant: No New Discharge Prescriptions: No Action Apixaban [Eliquis] 2.5 mg PO BID tab INSULIN ASPART (NovoLOG) [NovoLOG (formulary)] See Protocol SQ DIRECTED PRN PRN Reason: HIGH BLOOD SUGAR Clopidogrel [Plavix] 75 mg PO HS Rosuvastatin [Crestor] 20 mg PO HS Calcium Acetate 667 mg PO TID-W/MEALS Mounjaro (Unknown Dose) 1 dose SQ WEEKLY Folic Acid/Vit B Complex and C [Nephro-Jazmine Tablet] 0.8 mg PO DAILY carvediloL [Coreg] 3.125 mg PO BID Discharge Medication List Apixaban [Eliquis] 2.5 mg PO BID tab 06/01/23 [Rx] Calcium Acetate 667 mg PO TID-W/MEALS 06/24/23 [History] INSULIN ASPART (NovoLOG) [NovoLOG (formulary)] See Protocol SQ DIRECTED PRN 06/24/23 [History] Clopidogrel [Plavix] 75 mg PO HS 01/24/24 [History] Folic Acid/Vit B Complex and C [Nephro-Jazmine Tablet] 0.8 mg PO DAILY 01/24/24 [History] Mounjaro (Unknown Dose) 1 dose SQ WEEKLY 01/24/24 [History] Rosuvastatin [Crestor] 20 mg PO HS 01/24/24 [History] carvediloL [Coreg] 3.125 mg PO BID 03/13/24 [History] Follow up Appointment(s)/Referral(s): Beatriz Quinn DO [STAFF PHYSICIAN] - 07/12/24 9:30 am ( PT TO NOT USE FISTULA UNTIL SEEN BY DR QUINN AT FOLLOW UP APPOINTMENT. SUTURES TO BE REMOVED TOMORROW AT DIALYSIS.) Patient Instructions/Handouts: Angiography (DC) Activity/Diet/Wound Care/Special Instructions: *SUTURES OUT TOMORROW AT DIALYSIS - USE HEMODIALYSIS PORT UNTIL CLEARED BY DR QUINN TO USE FISTULA. Discharge Disposition: HOME SELF-CARE
--- NOTE | 2024-07-26 22:44 | IR ---
EXAMINATION TYPE: IR fistula/abscess/sinus tract DATE OF EXAM: 07/06/2024 11:33 AM COMPARISON: Pre Operative Images if available both CT/MRI or plain film CLINICAL INDICATION: Male, 69 years old with history of fistulagram, 7.7min fluoro, 2.6Gycm2; TECHNIQUE: IR fistula/abscess/sinus tract, multiple fluoroscopic images provided for procedure. Total fluoroscopy time: 7.7 min Total submitted images to PACS: [id number] DAP: 0.564 mGym2 Gycm2 uGym2 cGycm2 or equivalent. FINDINGS: IMPRESSION: 1. Report was generated for administrative purposes only. 2. Please see the operative/procedural note for further details. [facility], , 07/26/2024 10:42 PM
== END 2024-07-06 10:52 | disposition home or self-care (01) ==
LOC: CATHCVL 07:08
PROVIDERS: ATTEND Surgery
DX: T82.598A Other mechanical complication of other cardiac and vascular devices and implants, initial encounter (principal); Z99.2 Dependence on renal dialysis; Z79.01 Long term (current) use of anticoagulants; Z79.02 Long term (current) use of antithrombotics/antiplatelets; Z79.899 Other long term (current) drug therapy
CPT/HCPCS: 76937; 36902; 80048; 85025; C1894; C1769 ×3; C1725 ×2; J2250; J2001; J3010; Q9966

== ENCOUNTER → 2024-11-09 | Day surgery (SDC) | payer MEDICARE ==
[2024-11-07 09:46] VITALS: BMI 34.0
[2024-11-09] MEDS: IV FLUID CONTINUATION 1,000 ML IV ONE (10:17)
[2024-11-09] MEDS: SODIUM CHLORIDE 0.9% 500 ML 500 ML IV SCH (10:17)
[2024-11-09 10:26] LABS: Glucose,Whole Blood 150 mg/dL (70-110)
[2024-11-09 10:37] LABS: Basophils # (A) 0.1 k/uL (0-0.2); Basophils % (A) 1 %; Eosinophils # (A) 0.4 k/uL (0-0.7); Eosinophils % (A) 4 %; HCT 38.5 % (39.0-53.0); HGB 12.9 gm/dL (13.0-17.5); Lymphocytes # (A) 1.7 k/uL (1.0-4.8); Lymphocytes % (A) 15 %; MCH 31.2 pg (25.0-35.0); MCHC 33.4 g/dL (31.0-37.0); MCV 93.3 fL (80.0-100.0); Mean Platelet Volume 6.9; Monocytes # (A) 0.7 k/uL (0-1.0); Monocytes % (A) 6 %; Neutrophils # (A) 8.7 k/uL (1.3-7.7); Neutrophils % (A) 74 %; Platelet Count 231 k/uL (150-450); RBC 4.13 m/uL (4.30-5.90); RDW 12.7 % (11.5-15.5); WBC 11.8 k/uL (3.8-10.6)
[2024-11-09 10:38] VITALS: TEMP 98.1
[2024-11-09 10:59] LABS: Carbon Dioxide 26 mmol/L (22-30); Chloride 96 mmol/L (98-107); Glucose 159 mg/dL (74-99); Potassium 4.3 mmol/L (3.5-5.1); Sodium 138 mmol/L (137-145)
[2024-11-09 11:00] LABS: ALT 26 U/L (4-49); AST 22 U/L (17-59); African American GFR (CKD) 16 (>60 ml/min/1.73 sqM); Albumin 4.5 g/dL (3.5-5.0); Alkaline Phosphatase 96 U/L (38-126); Anion Gap 16 mmol/L; Blood Urea Nitrogen 53 mg/dL (9-20); Calcium 9.3 mg/dL (8.4-10.2); Magnesium 2.4 mg/dL (1.6-2.3); Non-African American GFR(CKD) 14 (>60 ml/min/1.73 sqM); Phosphorus 4.8 mg/dL (2.5-4.5); Total Bilirubin 1.3 mg/dL (0.2-1.3); Total Protein 7.9 g/dL (6.3-8.2)
[2024-11-09] MEDS: fentaNYL (PF) 50 MCG/1 ML VIAL IVP ONE (11:19)
[2024-11-09] MEDS: MIDAZOLAM 2 MG/2 ML VIAL IVP ONE (11:19)
[2024-11-09] MEDS: LIDOCAINE 1% INJ 10MG/ML (20 ML MDV) SQ ONE (11:22)
[2024-11-09] MEDS: IOPAMIDOL-370 100ML BTL INJ ONE (11:40)
--- NOTE | 2024-11-09 12:03 | IR ---
EXAMINATION TYPE: IR angio upper extremity LT DATE OF EXAM: 11/09/2024 11:51 AM COMPARISON: Pre Operative Images if available both CT/MRI or plain film CLINICAL INDICATION: Male, 69 years old with history of LT Fistulagram, 2.2MIN, 1.70 DAP; TECHNIQUE: IR angio upper extremity LT, multiple fluoroscopic images provided for procedure. Total fluoroscopy time: 2.2 minutes Total submitted images to PACS: 0 DAP: 1.70 mGym2 Gycm2 uGym2 cGycm2 or equivalent. FINDINGS: IMPRESSION: 1. Report was generated for administrative purposes only. 2. Please see the operative/procedural note for further details. [facility], , 11/09/2024 12:01 PM
--- NOTE | 2024-11-09 12:10 | P.HPIHPCON ---
History of Present Illness H&P Date: 11/09/24 Kimo is a 69-year-old male with end-stage renal disease getting dialysis via a left radiocephalic fistula. Has been issues with some decrease in flow and diminished size of the proximal portion of the fistula. Plan for fistulogram today. Risk and benefits of the discussed. He seemed understand and is willing to proceed Consent for Procedure: I have explained the operation/procedure to the patient, including the risks, benefits, side effects, alternative therapies (including not receiving the proposed treatment or service), the likelihood of the patient achieving his/her goals, and potential recuperation problems for the procedure/sedation/analgesia, as well as any blood products, if indicated. I also explained to the patient the risks, benefits and side effects of the alternatives, as well as the risks related to not receiving the proposed procedure, care, treatment, or services. 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 Hx Covid 2021.HemoDialysis [facility], Enlarged prostate. fistual on left arm for dialysis, legally blind in rt eye,BPH Last Myocardial Infarction Date:: unknown History of Any Multi-Drug Resistant Organisms: None Reported Past Surgical History: Coronary Bypass/CABG, Heart Catheterization, Prostate Surgery Additional Past Surgical History / Comment(s): TURP, CABG April 2023. fistula placement, cordell cataract removal, rt chest mediport insertion/removal Past Anesthesia/Blood Transfusion Reactions: No Reported Reaction Additional Past Anesthesia/Blood Transfusion Reaction / Comment(s): no hx blood transfusion Smoking Status: Never smoker - Past Family History Mother Family Medical History: No Reported History Additional Family Medical History / Comment(s): at age 97 Father Family Medical History: Myocardial Infarction (ME) Additional Family Medical History / Comment(s): Massive ME at age 53. Medications and Allergies Home Medications Medication Instructions Recorded Confirmed Type Apixaban [Eliquis] 2.5 mg PO BID tab 06/01/23 11/09/24 Rx Calcium Acetate 667 mg PO BID 06/24/23 11/07/24 History INSULIN ASPART (NovoLOG) [NovoLOG See Protocol SQ DIRECTED PRN 06/24/23 11/07/24 History (formulary)] Clopidogrel [Plavix] 75 mg PO HS 01/24/24 11/09/24 History Folic Acid/Vit B Complex and C 0.8 mg PO DAILY 01/24/24 11/07/24 History [Nephro-Jazmine Tablet] Rosuvastatin [Crestor] 20 mg PO HS 01/24/24 11/07/24 History Tirzepatide [Mounjaro] 7.5 mg SQ TU 01/24/24 11/09/24 History carvediloL [Coreg] 3.125 mg PO BID 03/13/24 11/07/24 History Allergies Allergy/AdvReac Type Severity Reaction Status Date / Time atorvastatin [From Lipitor] Allergy Rash/Hives Verified 11/09/24 09:59 Surgical - Exam Vital Signs Temp Pulse Resp BP Pulse Ox 98.1 F 67 14 135/67 99 11/09/24 10:15 11/09/24 10:15 11/09/24 10:15 11/09/24 10:15 11/09/24 10:15 General Is a pleasant cooperative male in no acute distress. Left upper extremity with palpable thrill at the wrist, diminished beyond that. Results - Labs 11/09/24 10:31 11/09/24 10:32 Abnormal Lab Results - Last 24 Hours (Table) 11/09/24 11/09/24 11/09/24 Range/Units 10:17 10:31 10:32 WBC 11.8 H (3.8-10.6) k/uL RBC 4.13 L (4.30-5.90) m/uL Hgb 12.9 L (13.0-17.5) gm/dL Hct 38.5 L (39.0-53.0) % Neutrophils # 8.7 H (1.3-7.7) k/uL Chloride 96 L (98-107) mmol/L BUN 53 H (9-20) mg/dL Creatinine 4.05 H (0.66-1.25) mg/dL Glucose 159 H (74-99) mg/dL POC Glucose (mg/dL) 150 H (70-110) mg/dL Phosphorus 4.8 H (2.5-4.5) mg/dL Magnesium 2.4 H (1.6-2.3) mg/dL Diabetes panel 11/09/24 Range/Units 10:32 Sodium 138 (137-145) mmol/L Potassium 4.3 (3.5-5.1) mmol/L Chloride 96 L (98-107) mmol/L Carbon Dioxide 26 (22-30) mmol/L BUN 53 H (9-20) mg/dL Creatinine 4.05 H (0.66-1.25) mg/dL Glucose 159 H (74-99) mg/dL Calcium 9.3 (8.4-10.2) mg/dL AST 22 (17-59) U/L ALT 26 (4-49) U/L Alkaline Phosphatase 96 (38-126) U/L Total Protein 7.9 (6.3-8.2) g/dL Albumin 4.5 (3.5-5.0) g/dL Calcium panel 11/09/24 Range/Units 10:32 Calcium 9.3 (8.4-10.2) mg/dL Phosphorus 4.8 H (2.5-4.5) mg/dL Albumin 4.5 (3.5-5.0) g/dL Pituitary panel 11/09/24 Range/Units 10:32 Sodium 138 (137-145) mmol/L Potassium 4.3 (3.5-5.1) mmol/L Chloride 96 L (98-107) mmol/L Carbon Dioxide 26 (22-30) mmol/L BUN 53 H (9-20) mg/dL Creatinine 4.05 H (0.66-1.25) mg/dL Glucose 159 H (74-99) mg/dL Calcium 9.3 (8.4-10.2) mg/dL Adrenal panel 11/09/24 Range/Units 10:32 Sodium 138 (137-145) mmol/L Potassium 4.3 (3.5-5.1) mmol/L Chloride 96 L (98-107) mmol/L Carbon Dioxide 26 (22-30) mmol/L BUN 53 H (9-20) mg/dL Creatinine 4.05 H (0.66-1.25) mg/dL Glucose 159 H (74-99) mg/dL Calcium 9.3 (8.4-10.2) mg/dL Total Bilirubin 1.3 (0.2-1.3) mg/dL AST 22 (17-59) U/L ALT 26 (4-49) U/L Alkaline Phosphatase 96 (38-126) U/L Total Protein 7.9 (6.3-8.2) g/dL Albumin 4.5 (3.5-5.0) g/dL Assessment and Plan Assessment: End-stage renal disease on dialysis Plan: Plan for fistulogram with intervention
--- NOTE | 2024-11-09 12:14 | P.OP ---
Date of Procedure: 11/09/24 Description of Procedure: Preoperative diagnosis: Malfunctioning dialysis access, end-stage renal disease Postoperative diagnosis: Same Procedure: Ultrasound-guided left cephalic vein access Fistulogram Percutaneous transluminal balloon venoplasty 5 x 40 cephalic vein inflow Moderate conscious sedation x 20 minutes with personal monitoring certified RN administration Surgeon: Beatriz Nelson D.O. EBL: 10 cc IV fluids: See records Urine output: None Complications: None immediately apparent Condition: Stable Operative indication and findings: Patient is a 69-year-old male with end-stage renal disease utilizing a left cephalic fistula. It has not been working properly therefore he is here today for fistulogram. Risk of and benefits were discussed Procedure in detail: Patient was brought to the op suite placed in supine position. Left lower extremity was prepped and draped in usual sterile fashion. A preprocedural timeout performed, all parties were in agreement. Using ultrasound, the cephalic vein at the level of the elbow was identified. The skin overlying was anesthetized 1% lidocaine plain in a retrograde fashion, the vein was accessed. A fistulogram was performed showing adequate size of the mid forearm vein however smaller size with more proximal vein with sluggish flow. Catheters and wires were then used to cross the area of anastomosis. A 5 x 40 balloon angioplasty was performed at the cephalic vein anastomosis as well as the proximal cephalic vein. Repeat imaging was performed showing significant improvement. There was a good palpable thrill and augmentation through the graft. Catheters and wires were then removed. [id number] suture was placed at the port site in the sheath was then removed. Manual pressure was held till hemostasis was adequate.
[2024-11-09 15:13] LABS: Chol/HDL Ratio 3.05 Ratio; LDL Cholesterol,Calculated 72.7 mg/dL (0.0-131.0); VLDL Calculation 18.14 mg/dL (5.00-40.00)
[2024-11-09 17:36] VITALS: BP 134/65; PULSE 61; RESP 14
== END | disposition home or self-care (01) ==
LOC: CATHCVL 09:07
PROVIDERS: ATTEND Surgery
DX: T82.49XA Other complication of vascular dialysis catheter, initial encounter (principal); I12.0 Hypertensive chronic kidney disease with stage 5 chronic kidney disease or end stage renal disease; E11.22 Type 2 diabetes mellitus with diabetic chronic kidney disease; N18.6 End stage renal disease; E78.5 Hyperlipidemia, unspecified; I25.2 Old myocardial infarction; N40.0 Benign prostatic hyperplasia without lower urinary tract symptoms; Z79.01 Long term (current) use of anticoagulants; Z79.02 Long term (current) use of antithrombotics/antiplatelets; Z86.16 Personal history of COVID-19; Z86.73 Personal history of transient ischemic attack (TIA), and cerebral infarction without residual deficits; Z90.79 Acquired absence of other genital organ(s); Z95.1 Presence of aortocoronary bypass graft; Z99.2 Dependence on renal dialysis; Y83.8 Other surgical procedures as the cause of abnormal reaction of the patient, or of later complication, without mention of misadventure at the time of the procedure
CPT/HCPCS: 36902; 80061; 80053; 83735; 84100; 85025; 83036; C1894; C1769 ×3; C1725; J2250; J2003; Q9967; J3010

== ENCOUNTER 2025-04-13 06:03 | Day surgery (SDC) | payer MEDICARE ==
[2025-04-12 09:57] VITALS: BMI 33.0
[2025-04-13] MEDS: IV FLUID CONTINUATION 1,000 ML IV ONE (06:37)
[2025-04-13] MEDS: SODIUM CHLORIDE 0.9% 500 ML 500 ML IV SCH (06:42)
[2025-04-13 06:56] VITALS: RESP 16; TEMP 98.1
[2025-04-13 07:03] LABS: Basophils # (A) 0.07 10*3/uL (0.00-0.10); Basophils % (A) 0.6 %; Eosinophils # (A) 0.49 10*3/uL (0.04-0.35); HCT 40.6 % (39.6-50.0); HGB 13.7 g/dL (13.0-17.0); Lymphocytes % (A) 20.2 %; MCH 31.5 pg (27.0-32.0); MCHC 33.7 g/dL (32.0-37.0); MCV 93.3 fL (80.0-97.0); Mean Platelet Volume 8.6 fL (9.5-12.2); Monocytes % (A) 10.5 %; Neutrophils # (A) 7.96 10*3/uL (1.80-7.70); Neutrophils % (A) 64.4 %; Platelet Count 228 10*3/uL (140-440); RBC 4.35 10*6/uL (4.40-5.60); RDW 12.3 % (11.5-14.5); WBC 12.36 10*3/uL (4.50-10.00)
[2025-04-13 07:19] LABS: African American GFR (CKD) 15 (>60 ml/min/1.73 sqM); Anion Gap 14 mmol/L; Blood Urea Nitrogen 53 mg/dL (9-20); Calcium 9.6 mg/dL (8.4-10.2); Carbon Dioxide 26 mmol/L (22-30); Chloride 98 mmol/L (98-107); Glucose 146 mg/dL (74-99); Non-African American GFR(CKD) 13 (>60 ml/min/1.73 sqM); Potassium 4.1 mmol/L (3.5-5.1); Sodium 138 mmol/L (137-145)
[2025-04-13] MEDS: LIDOCAINE 2% (PF) 20 MG/ML 5 ML VIAL SQ ONE (08:00)
[2025-04-13] MEDS: fentaNYL (PF) 50 MCG/1 ML VIAL IVP ONE ×3 (08:00→08:15)
[2025-04-13] MEDS: MIDAZOLAM 2 MG/2 ML VIAL IVP ONE ×2 (08:00→08:19)
[2025-04-13] MEDS: IOPAMIDOL-370 100ML BTL INTRATHECA ONE (08:20)
[2025-04-13] MEDS: HEPARIN SODIUM,PORCINE 10,000 UNIT in SODIUM CHLORIDE 0.9% 1,000 ML IRRIGATION ONE (08:21)
[2025-04-13 09:39] VITALS: BP 135/78; PULSE 72
--- NOTE | 2025-04-13 09:44 | IR ---
EXAMINATION TYPE: IR fistula/abscess/sinus tract DATE OF EXAM: 04/13/2025 9:36 AM COMPARISON: Pre Operative Images if available both CT/MRI or plain film CLINICAL INDICATION: Male, 69 years old with history of LEFT FOREARM FISTULA; TECHNIQUE: IR fistula/abscess/sinus tract, multiple fluoroscopic images provided for procedure. DAP: 0.453 mGym2 Gycm2 uGym2 cGycm2 or equivalent. FINDINGS: IMPRESSION: 1. Report was generated for administrative purposes only. 2. Please see the operative/procedural note for further details. [facility], , 04/13/2025 9:41 AM
--- NOTE | 2025-04-13 14:20 | P.OP ---
Date of Procedure: 04/13/25 Description of Procedure: Preoperative diagnosis: Malfunctioning AV fistula Postoperative diagnosis: Same Procedure: Ultrasound-guided cephalic vein access Fistulogram Percutaneous transluminal balloon venoplasty 6 x 20, 7 x 40 drug-coated balloon Moderate conscious sedation with personal monitoring certified RN administration x 24 minutes Surgeon: Beatriz Nelson D.O. EBL: Less than 5 cc IV fluids: See records Urine output: Not measured Drains: None Complications: None immediately apparent Condition: Stable Operative indication and findings: Patient is a 69-year-old male who gets dialysis via a radiocephalic AV fistula. Recently there is been issues with decreased adequacy and high-pitched sounds per the dialysis center therefore he presents today for fistulogram Procedure in detail: Patient was taken to the suite and placed in supine position. The Malfunctioning AV fistula left upper extremity was prepped and draped in usual sterile fashion. A preprocedure timeout was performed, all parties were in agreement. Using the ultrasound, the cephalic vein was accessed proximally and Seldinger technique was used to place a 6 [place] sheath. A fistulogram was performed revealing significant stenosis of the outflow tract decision was made to go for the angioplasty. Catheters and wires were used to traverse the area and a 6 x 20 balloon venoplasty was performed with significant improvement of flow through this vessel. It was then treated with a 7 x 40 drug-coated balloon there was minimal area of extravasation at this level at repeat image. A manual external pressure was held and this repeat image was significantly improved therefore this time catheters and wires were removed. Th e sheath was removed and a [id number] suture was placed. The patient tolerated the procedure well and was transferred back to recovery in stable condition
== END 2025-04-13 09:28 | disposition home or self-care (01) ==
LOC: CATHCVL 06:03
PROVIDERS: ATTEND Surgery
DX: T82.590A Other mechanical complication of surgically created arteriovenous fistula, initial encounter (principal); N18.6 End stage renal disease; Y83.1 Surgical operation with implant of artificial internal device as the cause of abnormal reaction of the patient, or of later complication, without mention of misadventure at the time of the procedure
CPT/HCPCS: 80048; 85025; 36902; C1894; C1769 ×3; C1725; C2623; J2250; J1644; Q9967; J2003; J3010